=== PATIENT | female | born 1945 | race Caucasian/White ===

== ENCOUNTER 2019-11-04 11:06 | Outpatient (CLI) | payer MEDICARE, OTHER, SELFPAY ==
--- NOTE | ~2019-11-04 | XR_ITS ---
XR lumbar spine 2-3V 11/04/2019 12:08 Indication: Low back pain Procedure: 3 views lumbar spine Comparison: 10/09/2004 Findings: There has been worsening of dextroscoliosis centered at L2. There is 22 degrees angulation. There is disc narrowing at all lumbar levels. There is advanced multilevel facet hypertrophy of the mid and lower lumbar spine. There is atherosclerosis of the aorta. No acute fracture or traumatic mal alignment. Impression: 1: Moderate-severe lumbar spondylosis with progression of dextroscoliosis since prior examination. Reviewed, dictated and finalized at location A. HER WOOD WELDER Impression: 1: Moderate-severe lumbar spondylosis with progression of dextroscoliosis since prior examination.
--- NOTE | ~2019-11-04 | XR_ITS ---
XR chest 2V DATE: 11/04/2019 12:08 INDICATION: Fatigue. Left shoulder and low back pain. TECHNIQUE: PA and lateral views COMPARISON: 12/16/2018 CT chest abdomen pelvis FINDINGS: Normal heart size. Mild aortic calcification and unfolding. No hilar or mediastinal enlarge ment. No pulmonary infiltrate or consolidation, pleural effusion or pulmonary vascular congestion or pneumo thorax. Osteoarthritis is noted at the left glenohumeral joint. Prominent degenerative disc disease is noted in the lower cervical spine. There is diffuse idiopathic skeletal hyperostosis of the thoracic spine. IMPRESSION: No active cardiopulmonary disease Reviewed, dictated and finalized at location B. F HELPER
--- NOTE | ~2019-11-04 | XR_ITS ---
EXAMINATION: XR shoulder LT min 2V EXAM DATE: 11/04/2019 12:08 INDICATION: No known recent injury provided at this time. Pain of the left shoulder. TECHNIQUE: The following left shoulder projections obtained: frontal projection with internal rotatio n, frontal projection with external rotation, Grashey, and scapular Y view (4+ views). There is no p rior study for comparison. FINDINGS: No evidence of left shoulder rotator cuff calcific tendinosis. There is moderate glenohum eral and acromioclavicular joint primary osteoarthritis. There are no acute fractures or dislocations identified. There is no subcutaneous gas. The soft tissue is unremarkable. There are no radiopaq ue foreign bodies. IMPRESSION: Moderate left shoulder osteoarthritis. Reviewed, dictated and finalized at location A. ER BOX OPERATOR
== END 2019-11-04 11:07 | disposition home or self-care (01) ==
PROVIDERS: PCP Family Medicine; Visit Provider Physician Assistant
DX: R53.83 Other fatigue (principal); M54.5 Low back pain; M25.512 Pain in left shoulder; M47.816 Spondylosis without myelopathy or radiculopathy, lumbar region; M19.012 Primary osteoarthritis, left shoulder
CPT/HCPCS: 71046; 72100; 73030

== ENCOUNTER 2020-02-19 13:23 | Outpatient (CLI) | payer MEDICARE, OTHER, SELFPAY ==
--- NOTE | ~2020-02-19 | MR_ITS ---
EXAMINATION: MR brain/brain stem wo/w con DATE: 02/19/2020 15:21 INDICATION: Diplopia. Headache. Multiple sclerosis. TECHNIQUE: Magnetic resonance imaging (MRI) of the brain and brainstem was performed without and with 15 mL MultiHance intravenous contrast. Sequences included sagittal and axial T1-weighted FSE, axial diffusion-weighted FS EPI, axial T2*-weighted GRE, axial T2-weighted FLAIR Propeller, and axial T2-we ighted Propeller. Postcontrast sequences included axial and coronal T1-weighted FSE. Apparent diffusi on coefficient (ADC) maps were created. COMPARISON: Brain MRI 12/23/2017 FINDINGS: There are scattered areas of nonspecific increased T2-weighted signal intensity in the cere bral white matter and mayito. There is no intracranial hemorrhage, acute infarction, or abnormal intrac ranial mass lesion. The ventricles are normal in size. There is mild mucosal thickening in the [place] sinuses. There are likely changes of ocular lens replacement surgeries. The mastoid air cells are normal. IMPRESSION: 1. Worsened extensive nonspecific cerebral white matter disease and pontine disease, which likely rep resents chronic small vessel ischemic disease and/or multiple sclerosis. Reviewed, dictated and finalized at location A. IMPRESSION: 1. Worsened extensive nonspecific cerebral white matter disease and pontine dis ease, which likely represents chronic small vessel ischemic disease and/or mult iple sclerosis.
[2020-02-19 14:06] LABS: Estimated Glomerular Filt Rate > 60
== END 2020-02-19 13:24 | disposition home or self-care (01) ==
PROVIDERS: PCP Family Medicine; Visit Provider Physician Assistant
DX: G93.89 Other specified disorders of brain (principal); R51 Headache; H53.2 Diplopia; G35 Multiple sclerosis
CPT/HCPCS: 36415; 70553; A9577

== ENCOUNTER 2020-06-30 13:20 | Outpatient (CLI) | payer MEDICARE, OTHER, SELFPAY ==
--- NOTE | ~2020-06-30 | MR_ITS ---
EXAMINATION: MR cervical spine wo con EXAM DATE: 06/30/2020 14:48 INDICATION: Multiple sclerosis. Extremity pain, double vision, headache.. TECHNIQUE: Multi-sequential, multiplanar MR images of the cervical spine were obtained without contra st. Axial T2, axial T2 MERGE sequence. Sagittal T1, T2, T2 fat saturation images also obtained. Th ere is no prior study for comparison. FINDINGS: There is moderate disc disease at C5-6 and C6-7. There is 2 mm anterolisthesis C4 on C5. T he spinal cord signal intensity and intrinsic morphology is normal. Cervicomedullary junction is norm al in appearance. There are no suspicious marrow signal abnormalities. Paraspinal soft tissue is unre markable. Level by level evaluation: C2-C3: Disc does not extend beyond the endplate margin. Uncovertebral joint arthropathy: None. Facet joint arthropathy: Mild. Neural foraminal stenosis: No stenosis. Central canal stenosis: No stenosis. C3-C4: There is a mild diffuse disc bulge. Uncovertebral joint arthropathy: Moderate right, mild left. Facet joint arthropathy: Moderate right, mild to moderate left. Neural foraminal stenosis: Moderate right, mild to moderate left. Central canal stenosis: Mild. C4-C5: There is a minimal diffuse disc bulge. Uncovertebral joint arthropathy: Mild to moderate bilateral. Facet joint arthropathy: Severe left, mild to moderate right. Neural foraminal stenosis: Moderate left, mild right. Central canal stenosis: No stenosis. C5-C6: There is a mild diffuse disc bulge. Uncovertebral joint arthropathy: Moderate to severe left, moderate right. Facet joint arthropathy: Moderate bilateral. Neural foraminal stenosis: Moderate to severe left, moderate right. Central canal stenosis: Mild. C6-C7: There is a mild diffuse disc bulge. Uncovertebral joint arthropathy: Moderate to severe left, moderate right. Facet joint arthropathy: Mild to moderate bilateral. Neural foraminal stenosis: Moderate left, no right. Central canal stenosis: Minimal. C7-T1: Disc does not extend beyond the endplate margin. Uncovertebral joint arthropathy: Mild to moderate bilateral. Facet joint arthropathy: Moderate left, mild right. Neural foraminal stenosis: Mild left. Central canal stenosis: No stenosis. IMPRESSION: 1. Normal spinal cord signal. 2. Arthropathy causing multilevel neural foraminal stenosis, left C5-6 most narrowed. Reviewed, dictated and finalized at location A. IMPRESSION: 1. Normal spinal cord signal. 2. Arthropathy causing multilevel neural foraminal stenosis, left C5-6 most na rrowed.
--- NOTE | ~2020-06-30 | CT_ITS ---
EXAMINATION: CTA brain EXAM DATE: 06/30/2020 15:24 INDICATION: Headaches, history of diplopia. TECHNIQUE: Noncontrast head CT. Spiral CT angiogram cerebral arteries performed with intravenous in jection of 100 mL Omnipaque 350. Axial, coronal and sagittal images reviewed. Additional reformatted images created on dedicated 3-D workstation. The dose-length product (DLP) for this examination was 962.61 mGy-cm. The exposure was tailored according to patient size, and iterative reconstruction ( ASIR) was used as additional dose reduction technique. There is no prior study for comparison. FINDINGS: Mild bilateral carotid arterial sclerosis with no stenosis. There is right-sided posterior communicating artery dominant posterior cerebral artery. Right vertebral artery is dominant. There is no distal carotid or vertebral basilar arterial dissection or fibromuscular dysplasia. There are n o cerebral artery aneurysms. There is symmetric cerebral artery arborization. The sagittal, transvers e and sigmoid sinuses enhance normally, no venous sinus thrombosis. Internal cerebral veins also enha nce normally. There is no acute intraparenchymal hemorrhage. No evidence of intraparenchymal brain mass lesion. No evidence of acute infarction. There is moderate periventricular and subcortical hypodensity, nonsp ecific but probably related to small vessel ischemic disease. There is mild prominence of the sulci and ventricles related to cerebral atrophy. There is intracranial carotid arteriosclerosis. Ther e is no mass effect or midline shift. There is no obstructive hydrocephalus suspected. There are no extra-axial collections. There are no calvarial acute fractures. Mild sinus mucoperiosteal thickeni ng. Mastoid air cells are aerated. Bilateral cataract surgery. IMPRESSION: 1. No acute intracranial findings or cerebral artery aneurysm. 2. Chronic age related findings. Reviewed, dictated and finalized at location A.
--- NOTE | ~2020-06-30 | MR_ITS ---
EXAMINATION: MR thoracic spine wo con EXAM DATE: 06/30/2020 14:56 INDICATION: Multiple sclerosis. Extremity pain. TECHNIQUE: Multi-sequential, multiplanar MR images of the thoracic spine were obtained without contra st. Sagittal T1, T2, T2 fat saturation, axial T2 weighted images reviewed. There is no prior study for comparison. FINDINGS: There is mild mid thoracic kyphosis. The spinal cord signal intensity and intrinsic morphol ogy is normal. Thoracic central canal and neural foramen are widely patent. There are no suspicious m arrow signal abnormalities. There is mild upper thoracic levoscoliosis, mid thoracic dextroscoliosis. There is mild thoracic facet arthropathy. Mild mid and lower thoracic disc disease. Paraspinal soft tissue is unremarkable. IMPRESSION: 1. Normal thoracic cord signal. 2. Mild thoracic scoliosis. 3. Mild thoracic spondylosis. Reviewed, dictated and finalized at location A.
[2020-06-30 15:18] LABS: Estimated Glomerular Filt Rate > 60
== END 2020-06-30 13:21 | disposition home or self-care (01) ==
PROVIDERS: PCP Family Medicine; Visit Provider Psychiatry & Neurology Neurology
DX: R51.9 Headache, unspecified (principal); G35 Multiple sclerosis
CPT/HCPCS: 70496; 72141; 72146; Q9967

== ENCOUNTER 2020-08-19 14:38 | Emergency (ER) | payer MEDICARE, OTHER, SELFPAY ==
[2020-08-19] VITALS (14 sets, daily range): BP systolic 148–159; BP diastolic 68–77; PULSE 68–86; RESP 13–33; TEMP 36.4–37.1; O2SAT 92–96
--- NOTE | ~2020-08-19 | CT_ITS ---
EXAMINATION: CT chest abdomen pelvis wo con DATE: 08/19/2020 17:13 INDICATION: Cough and shortness of breath. Left lower quadrant abdominal pain. TECHNIQUE: Computed tomography (CT) of the chest, abdomen, and pelvis was performed without intraveno us contrast. Automated exposure control and iterative reconstruction technique were employed. The dos e-length product was 834.12 mGy-cm. COMPARISON: CT abdomen and pelvis 08/01/2019 FINDINGS: CHEST CT: The lungs demonstrate minimal atelectasis. No pleural effusion. The heart size is normal. There are c oronary artery calcifications. No pericardial effusion. There is thoracic levoscoliosis. There is mod erate thoracic spondylosis. ABDOMEN/PELVIS CT: The liver, gallbladder, spleen, pancreas, and adrenal glands. There is a 2.1 cm hemorrhagic cyst in l eft kidney. Calcifications in the hilum of right kidney are likely vascular. There is calcified ather osclerosis of the aorta and many of the other arteries. There is a calcified fibroid in the uterus. T here is diverticulosis of the colon without evidence of diverticulitis. There are no dilated loops of bowel. The appendix is likely absent. There are no pathologically enlarged lymph nodes. There is no free intraperitoneal fluid. There is lumbar dextroscoliosis and severe spondylosis. IMPRESSION: 1. No specific etiology for the patient's symptoms. Reviewed, dictated and finalized at location A. TIC PARTS FABRICATOR
--- NOTE | ~2020-08-19 | XR_ITS ---
EXAMINATION: XR chest 1V portable DATE: 08/19/2020 16:05 INDICATION: Body aches. Weakness. Low-grade fever. TECHNIQUE: A single frontal view of the chest was obtained. COMPARISON: Chest 2 views 11/04/2019, CT abdomen and pelvis 08/01/2019 FINDINGS: There is mild atelectasis in left lower lung zone. No pleural effusion or pneumothorax. The heart size is normal. IMPRESSION: 1. Mild atelectasis in left lower lung zone. Reviewed, dictated and finalized at location A. D BELT SANDER TENDER
[2020-08-19 15:03] LABS: Basophils Percent Auto 0.5 % (0.2-1.2); Eosinophils Absolute Auto 0.1 K/mm3 (0-0.3); Eosinophils Percent Auto 1.9 % (0-4.4); Hematocrit 32.3 % (37.0-47.0); Hemoglobin 10.3 g/dL (12.0-15.0); Immature Granulocyte Absolute 0.02 K/mm3 (0.00-0.031); Immature Granulocyte Percent A 0.3 % (0-0.5); Lymphocytes Absolute Auto 2.11 K/mm3 (0.9-3.2); Lymphocytes Percent Auto 32.7 % (18.3-44.2); Mean Corpuscular HGB Conc 31.9 g/dl (32-36); Mean Corpuscular Hemoglobin 29.5 pg (26-34); Mean Corpuscular Volume 92.6 fl (80-100); Mean Platelet Volume 9.5 fl (7.4-10.4); Monocytes Absolute Auto 0.7 K/mm3 (0.1-0.6); Monocytes Percent Auto 10.5 % (2.6-8.5); Neutrophils Absolute Auto 3.5 K/mm3 (1.3-6.7); Neutrophils Percent Auto 54.1 % (45.5-73.1); Platelet Count Result 281 k/mm3 (150-375); Red Blood Count 3.49 M/mm3 (4.2-5.4); Red Cell Distribution Width 16.1 % (11.5-14.5); White Blood Count 6.5 K/mm3 (4.5-10.0)
[2020-08-19 15:14] LABS: Alanine Aminotransferase 15 U/L (4-35); Albumin Level 3.8 g/dL (3.5-5.1); Alkaline Phosphatase 83 U/L (38-126); Anion Gap 5 mmol/L (8-16); Aspartate Amino Transferase 20 U/L (14-36); Bilirubin,Total 0.3 mg/dL (0.2-1.3); Blood Urea Nitrogen 12 mg/dL (7-17); Calcium 9.1 mg/dL (8.4-10.2); Carbon Dioxide 34 mmol/L (22-30); Chloride 99 mmol/L (98-107); Estimated CRCL calculation 52 ml/min; Estimated Glomerular Filt Rate > 60; Glucose 116 mg/dL (65-105); Sodium 138 mmol/L (137-145)
--- NOTE | 2020-08-19 16:10 | PC.NURSE ---
patient brought back to ED room 10 with c/o weakness and abdomen pain. see triage notes. 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 alert. oriented in room. updated on current treatment plan.
[2020-08-19 16:27] LABS: Add Urine Microscopic? YES; Appearance Urine Clear (Clear); Bilirubin Urine Negative (Negative); Blood Urine Negative (Negative); Color Urine Yellow (Yellow); Glucose Urine UA Negative (Negative); Ketones Urine Negative (Negative); Leukocyte Esterase Ur 2+ LEU/UL (Negative); Mucus Urine Rare /lpf; Nitrate Urine Negative (Negative); Protein Urine Negative (Negative); RBC Urine 0-2 /hpf (0-2); Specific Grav Ur 1.013 (1.001-1.035); Squamous Epithelial Cell Urine Rare /hpf (Few); Urobilinogen Urine Negative mg/dL (<2.0); WBC Urine 21-30 /hpf
--- NOTE | 2020-08-19 16:46 | ED.GENADULT ---
HPI - General Adult General Chief complaint: Weakness Stated complaint: fever, achy, distended abd Time Seen by Provider: 08/19/20 16:04 Source: patient Mode of arrival: ambulatory Limitations: no limitations History of Present Illness HPI narrative: Patient is a 74-year-old female complaining of cough, body aches, fatigue, weakness and subjective low-grade fever x5 days. Patient also complaining of left lower quadrant pain that started a few days ago, 6 out of 10, dull, nonradiating, history of diverticulosis. Related Data Home Medications Medication Instructions Recorded Confirmed folic acid 1 mg tablet 1 mg PO DAILY 02/22/20 05/05/20 cholecalciferol (vitamin D3) 50 50 mcg PO DAILY 06/28/20 mcg (2,000 unit) capsule golimumab 50 mg/0.5 mL 50 mg SUBCUT .q8 weeks ml 06/28/20 subcutaneous syringe methotrexate sodium 25 mg/mL 25 mg IM WEEKLY ml 06/28/20 injection solution apqouncjzubq-yzwilgrs-qguhnp tablet 1 tablet PO DAILY 06/28/20 vit C 250 mg-vit E 200 unit-zinc 1 cap PO DAILY cap 06/28/20 ox 12.5 ly-vhsrlv-cpeivj-zeax capsule Allergies Allergy/AdvReac Type Severity Reaction Status Date / Time cephalexin Allergy Severe Anaphylaxis Verified 06/28/20 14:31 Review of Systems Review of Systems: All systems reviewed & are unremarkable except as noted in HPI and below Constitutional: Constitutional: Denies body ache(s), Denies chills, Denies excessive sweating, Denies fever(s), Denies headache(s) and Denies weight loss Eyes: Eyes: Denies blurry vision, Denies change in vision and Denies loss of vision ENT: Denies dizziness, Denies ear discharge, Denies headache(s), Denies lip swelling, Denies epistaxis, Denies nasal congestion, Denies neck pain, Denies throat swelling and Denies tongue swelling Cardiovascular: Cardiovascular: Denies chest pain, Denies chest pain at rest, Denies chest pain with activity, Denies diaphoresis, Denies rapid heart rate, Denies edema, Denies irregular heart rhythm, Denies lightheadedness, Denies palpitations, Denies dyspnea and Denies dyspnea on exertion Respiratory: Respiratory: Denies chest congestion, Denies hemoptysis, Denies dyspnea and Denies dyspnea on exertion Gastrointestinal: Gastrointestinal: Denies melena, Denies hematochezia, Denies diarrhea, Denies nausea, Denies vomiting and Denies hematemesis Musculoskeletal: Musculoskeletal: Denies abnormal gait, Denies deformity, Denies joint swelling, Denies limited range of motion, Denies neck pain and Denies numbness Neurologic: Denies Abnormal speech present, Denies abnormal gait, Denies confusion, Denies dizziness, Denies headache(s), Denies focal weakness, Denies loss of vision, Denies numbness, Denies Other visual disturbances, Denies Sensory deficit (Neuro) and Denies weakness Psychiatric: Psychiatric: Denies confusion, Denies depression, Denies auditory hallucinations, Denies homicidal ideation and Denies suicidal ideation Endocrine: Endocrine: Denies cold intolerance, Denies excessive sweating, Denies fatigue, Denies heat intolerance and Denies palpitations Hematologic/Lymphatic: Hematologic/Lymphatic: Denies easy bleeding and Denies easy bruising Allergic/Immunologic: Allergic/Immunologic: Denies lip swelling, Denies throat swelling and Denies tongue swelling [facility] Past Medical History Medical History (Updated 08/19/20 @ 19:04 by Karlos Nuñez MD) Anal fissure Anemia Anxiety Bronchitis Cataracts, bilateral Closed nondisplaced fracture of proximal phalanx of lesser toe Depression Diabetes Diverticulitis Diverticulosis of colon (without mention of hemorrhage) Emphysema of lung Essential (primary) hypertension Fatty liver Gastro-esophageal reflux disease without esophagitis History of basal cell carcinoma (BCC) Mixed hyperlipidemia Osteoarthritis of left knee Peripheral neuropathy Psoriasis 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
[2020-08-19] MEDS: LACTATED RINGERS 1,000 ML 999 ML IV CONT (17:05)
--- NOTE | 2020-08-19 19:23 | PC.NURSE ---
provider at bedside. patient ready for discharge. covid swab done prior to discharge.
[2020-08-20 12:35] LABS: SARS-CoV-2 RNA PCR Negative
== END 2020-08-19 19:24 | disposition home or self-care (01) ==
PROVIDERS: Emergency Medicine; Emergency Provider Emergency Medicine; PCP Family Medicine
DX: B34.9 Viral infection, unspecified (principal); N39.0 Urinary tract infection, site not specified; Z20.828 Contact with and (suspected) exposure to other viral communicable diseases; D64.9 Anemia, unspecified; J43.9 Emphysema, unspecified; I10 Essential (primary) hypertension; K21.9 Gastro-esophageal reflux disease without esophagitis; Z85.828 Personal history of other malignant neoplasm of skin; M17.12 Unilateral primary osteoarthritis, left knee; E11.42 Type 2 diabetes mellitus with diabetic polyneuropathy; M06.9 Rheumatoid arthritis, unspecified; M05.9 Rheumatoid arthritis with rheumatoid factor, unspecified; G47.30 Sleep apnea, unspecified; Z98.42 Cataract extraction status, left eye; Z98.41 Cataract extraction status, right eye
CPT/HCPCS: 36415; 71045; 71250; 74176; 80053; 81001; 85025; 87086; 87635; 96360; 96361; 99284; C9803; J7120; U0003

== ENCOUNTER 2020-09-28 13:02 | Outpatient (CLI) | payer MEDICARE, OTHER, SELFPAY ==
--- NOTE | ~2020-09-28 | CT_ITS ---
EXAMINATION: CT abdomen pelvis w con EXAM DATE: 09/28/2020 14:00 INDICATION: R10.9 - Unspecified abdominal pain. TECHNIQUE: Spiral CT of the abdomen and pelvis was performed following intravenous injection of 100 m L Omnipaque 350. Axial, coronal and sagittal images were reviewed. The dose-length product (DLP) fo r this examination was 954.94 mGy-cm. The exposure was tailored according to patient size (auto mA e xposure control), and iterative reconstruction (ASIR) was used as additional dose reduction technique . Comparison is made to prior examination from 08/19/2020. FINDINGS: The liver, spleen, adrenal glands and pancreas are unremarkable. Gallbladder is unremarkab le. No biliary obstruction. Portal and splenic veins are patent. Kidneys enhance symmetrically. T here is no hydronephrosis. Possible small right nephrolithiasis. There is a left renal hemorrhagic cy st measuring 1.8 cm. Fibroid uterus. The bladder is unremarkable. There is no retroperitoneal or p elvic lymphadenopathy. There is moderate scattered arteriosclerotic disease. There is 2 cm duodenal diverticulum. There is mild sigmoid colonic diverticulosis. There is no adjac ent inflammatory change to suggest diverticulitis. No free intraperitoneal gas. The heart is norm al in size. There are no pericardial or pleural effusions. The lung bases are unremarkable. There are no osteoblastic or osteolytic lesions identified. There is mild to moderate lumbar dextroscoliosi s and moderate to severe mid lumbar disc disease. IMPRESSION: 1. No acute intra-abdominal findings. 2. Mild sigmoid diverticulosis. 3. Duodenal diverticulum. 4. Fibroid uterus. Reviewed, dictated and finalized at location B. F MARKETING OFFICER
[2020-09-28 13:52] LABS: Estimated Glomerular Filt Rate > 60
== END 2020-09-28 13:03 | disposition home or self-care (01) ==
PROVIDERS: PCP Family Medicine; Visit Provider Physician Assistant
DX: R10.9 Unspecified abdominal pain (principal); K57.30 Diverticulosis of large intestine without perforation or abscess without bleeding; K57.10 Diverticulosis of small intestine without perforation or abscess without bleeding; D25.9 Leiomyoma of uterus, unspecified
CPT/HCPCS: 74177; Q9967

== ENCOUNTER 2021-01-12 11:42 | Emergency (ER) | payer MEDICARE, OTHER, SELFPAY ==
--- NOTE | ~2021-01-12 | XR_ITS ---
EXAMINATION: XR wrist LT w scaphoid EXAM DATE: 01/12/2021 12:29 INDICATION: Fall, pain lt shoulder, lt upper arm and lt wrist . Initial encounter. TECHNIQUE: Left wrist frontal, frontal with ulnar deviation, oblique and lateral projections obtained and reviewed. There is no prior study for comparison. FINDINGS: Left wrist scapholunate joint space is maintained. Mild ulnar minus variance. There are no acute appearing approximately a sliced of finger yesterday fractures or dislocations identified. Th ere is no subcutaneous gas. The soft tissue is unremarkable. There are no radiopaque foreign ngoc s. IMPRESSION: No acute osseous findings. Reviewed, dictated and finalized at location A. IMPRESSION: No acute osseous findings.
--- NOTE | ~2021-01-12 | XR_ITS ---
EXAMINATION: XR humerus LT, XR shoulder LT min 2V EXAM DATE: 01/12/2021 12:29 (accession [id number]), 01/12/2021 12:30 (accession [id number]) INDICATION: fall, pain lt shoulder, lt upper arm and lt wrist . Initial encounter. TECHNIQUE: The following left shoulder projections obtained: frontal projection with internal rotatio n, frontal projection with external rotation, Grashey, and axillary (4+ views). Orthogonal projection s of the left humerus (3 images). Prior left shoulder x-ray from 11/04/2023 comparison. FINDINGS: There is moderate left shoulder primary osteoarthritis. There are no acute shoulder or earnest jami fractures or dislocations identified. There is no subcutaneous gas. The soft tissue is unremark able. There are no radiopaque foreign bodies. IMPRESSION: 1. Left shoulder, humerus exam without acute osseous findings. 2. Moderate shoulder osteoarthritis. Reviewed, dictated and finalized at location A. IMPRESSION: 1. Left shoulder, humerus exam without acute osseous findings. 2. Moderate shoulder osteoarthritis.
[2021-01-12 11:49] VITALS: BP 151/74; PULSE 63; RESP 20; TEMP 36.3; O2SAT 98
--- NOTE | 2021-01-12 11:50 | ED.UPPEXIN ---
HPI - Extremity Injury (Upper) General Chief Complaint: Fall Stated Complaint: right side shoulder arm injury Time Seen by Provider: 01/12/21 11:50 Source: patient and RN notes reviewed History of Present Illness HPI narrative: Patient is a 75-year-old female who presents the urgent care with complaints of left arm pain from the shoulder to the wrist. Patient states that she fell in her bathroom yesterday, tripping over her own feet. Patient states that she does use a motorized scooter, walker and wheelchair. Patient states that she is equipped at home but does have a tendency to fall. Patient states that she has been falling more often and does follow-up with her doctor regularly. Patient ambulated into the facility with the use of her walker. Patient states that she did not hit her head or have a loss of consciousness. Patient is not on blood thinners. Patient is left-hand dominant. States that she has been taking Tylenol and prednisone since the fall. No other acute complaints. No acute distress noted. Patient aware of the plan of care. Some parts of this dictation were generated by voice recognition software and may contain typographical and/or grammatical inaccuracies. Related Data Home Medications Medication Instructions Recorded Confirmed folic acid 1 mg tablet 1 mg PO DAILY 02/22/20 10/21/20 cholecalciferol (vitamin D3) 50 50 mcg PO DAILY 06/28/20 10/21/20 mcg (2,000 unit) capsule golimumab 50 mg/0.5 mL 50 mg SUBCUT .q8 weeks ml 06/28/20 10/21/20 subcutaneous syringe methotrexate sodium 25 mg/mL 25 mg IM WEEKLY ml 06/28/20 10/21/20 injection solution pnbtsqqvogwi-adhjmhrb-jkzqqw tablet 1 tablet PO DAILY 06/28/20 10/21/20 vit C 250 mg-vit E 200 unit-zinc 1 cap PO DAILY cap 06/28/20 10/21/20 ox 12.5 bv-nmyepw-tzbwis-zeax capsule Allergies Allergy/AdvReac Type Severity Reaction Status Date / Time cephalexin Allergy Severe Anaphylaxis Verified 01/12/21 11:55 Review of Systems Review of Systems: Narrative: CONSTITUTIONAL: Denies fever, chills, or sweats. EYES: Denies visual changes, redness, or discharge. ENT: Denies rhinorrhea, congestion, sore throat, or otalgia. CARDIOVASCULAR: Denies chest pain, palpitations, or edema. RESPIRATORY: Denies cough or dyspnea. GASTROINTESTINAL: Denies abdominal pain, nausea, vomiting, or diarrhea. GENITOURINARY: Denies dysuria or hematuria. SKIN: Denies rash or itching. MUSCULOSKELETAL: Reports of left arm aches and pains from the left shoulder to the left wrist NEUROLOGIC: Denies headache, numbness, or weakness. All other systems reviewed are negative, except as documented in HPI. 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
== END 2021-01-12 12:50 | disposition home or self-care (01) ==
PROVIDERS: Emergency Provider Nurse Practitioner Family; PCP Family Medicine
DX: M25.512 Pain in left shoulder (principal); M79.622 Pain in left upper arm; M25.532 Pain in left wrist; M19.012 Primary osteoarthritis, left shoulder; E11.9 Type 2 diabetes mellitus without complications; I10 Essential (primary) hypertension; K76.0 Fatty (change of) liver, not elsewhere classified; K21.9 Gastro-esophageal reflux disease without esophagitis; Z85.828 Personal history of other malignant neoplasm of skin; E78.5 Hyperlipidemia, unspecified; E11.42 Type 2 diabetes mellitus with diabetic polyneuropathy; M06.9 Rheumatoid arthritis, unspecified; G47.30 Sleep apnea, unspecified; F32.9 Major depressive disorder, single episode, unspecified
CPT/HCPCS: 73030; 73060; 73110; 99214; G0463

== ENCOUNTER 2021-05-04 10:15 | Outpatient (RCR) | payer MEDICARE, OTHER, SELFPAY ==
--- NOTE | 2021-05-04 15:44 | PTOPEVAL ---
Thank you for referring Blanca Nam to [facility].? The patient is scheduled to be seen for therapy? 1 x/week for 8 weeks. Please review, sign, date and return this plan of care KAILASH. I agree with and certify that the following plan of care is medically necessary. Referring Physician Date Attending Provider: Shahriar Cook, MD Diagnosis RA Onset chronic Additional Evaluation Detail New ramps are recently completed to allow her to use her scooter. Current scooter is ~ 4 months old. Subjective Information She had fall from bed last Query Text:As Reported By Patient/ week. She has a history of Family falls during walking and transferring. She has rollator and scooter to use of mobility. >6 falls in the past 6 months with greater amount in the past month. She stands to complete etl lead for 5 min intervals. She requires assistance with ADL's and tub transfers. She is able to transfer from bed, toilet. Requires assistance from any chair and car transfers. She does not use the wheelchair in the house often due to hitting objects. She uses her rollator. Pain Assessment Self Report Pain Assessment Generalized Reported Pain Level 6 Pain Frequency Chronic Lowest Pain Intensity 6 Greatest Pain Intensity 8 Upper Extremity Range of Motion General Upper Extremity Range of Motion Gross Upper Extremity Range of Motion frankie shoulder flex and Comments abduction: 90 dg elbow flex/ext: WFL finger: full fist and finger ext of all joints Lower Extremity Muscle Strength Testing General Lower Extremity Strength Gross Lower Extremity Strength left hip flex: 3-/5, knee flex /ext: 4-/5 (seated), ankle DF: 4/5 right hip flex: 3-/5 knee flex/ext 4-/5 (seated), ankle DF 4/5 pain with resistance in the hips Upper Extremity Muscle Strength Testing General Upper Extremity Strength
--- NOTE | 2021-05-25 12:57 | PCPTNOTE ---
Admitting Provider: Attending Provider: Shahriar Cook, Patient:Blanca Nam Date of :1945 Discharge Note Patient has not returned for any further treatments since 05/04/2021, therefore she will be discharged at this time. Patient?s initial visit was on 05/04/2021 10:30 and she had a total of 1 visits. The goals have been not met. Thank you for referring this patient to [facility]. Please review, sign, date and return this discharge summary KAILASH. I have been updated about the patient's current status and I agree with discharge from the above service at this time. Referring Physician Date
== END 2021-05-25 17:45 | disposition home or self-care (01) ==
LOC: ANHPT 10:15
PROVIDERS: PCP Family Medicine; Visit Provider Internal Medicine
DX: M06.09 Rheumatoid arthritis without rheumatoid factor, multiple sites (principal); M45.0 Ankylosing spondylitis of multiple sites in spine; Z79.899 Other long term (current) drug therapy
CPT/HCPCS: 97163; 97530

== ENCOUNTER 2021-05-11 09:27 | Outpatient (CLI) | payer MEDICARE, OTHER, SELFPAY ==
--- NOTE | ~2021-05-11 | XR_ITS ---
XR_CERV2-3V_CR DATE: 05/11/2021 10:00 INDICATION: Neck pain radiating into mid back, right shoulder TECHNIQUE: AP, open-mouth, lateral views COMPARISON: 06/17/2012 cervical spine FINDINGS: There is minimal anterolisthesis at C2-3, C3-4, C4-5. There is moderate degenerative disc disease and C5-6. There is moderately severe degenerative disease at C6-7. There is degenerative change at the apophyseal joints. Uncovertebral joint spurring in the C5-6 and C 6-7 region. IMPRESSION: Cervical spondylosis Reviewed, dictated and finalized at Location [facility]. Reviewed, dictated and finalized at location A. IMPRESSION: Cervical spondylosis
--- NOTE | ~2021-05-11 | XR_ITS ---
XR thoracic spine 3V DATE: 05/11/2021 10:01 INDICATION: Back pain TECHNIQUE: AP, lateral, swimmer views COMPARISON: 06/30/2020 MR thoracic spine FINDINGS: There is diffuse osteopenia. There is levoscoliosis of the upper thoracic spine and dextroscoliosis of lower thoracic and lumbar s pine. There is diffuse idiopathic skeletal hyperostosis involving the mid and particularly the lower thorac ic spine. No fracture, dislocation or bone destruction. No paraspinal soft tissue thickening. IMPRESSION: Diffuse osteopenia, scoliosis and degenerative changes Reviewed, dictated and finalized at location A.
--- NOTE | ~2021-05-11 | XR_ITS ---
EXAMINATION: XR shoulder RT min 2V EXAM DATE: 05/11/2021 10:01 INDICATION: M25.511 - Pain in right shoulder after multiple falls. TECHNIQUE: The following right shoulder projections obtained: frontal projection with internal rotati on, frontal projection with external rotation, Grashey, and scapular Y view (4+ views). There is no prior study for comparison. FINDINGS: No evidence of right shoulder rotator cuff calcific tendinosis. There is mild glenohumera l joint, moderate acromioclavicular joint primary osteoarthritis. There are no acute fractures or dis locations identified. There is no subcutaneous gas. The soft tissue is unremarkable. There are no radiopaque foreign bodies. IMPRESSION: 1. XR shoulder RT min 2V exam without acute osseous findings. 2. Mild to moderate osteoarthritis. Reviewed, dictated and finalized at location A.
== END 2021-05-11 09:28 | disposition home or self-care (01) ==
LOC: ANHBWCIMG 09:29
PROVIDERS: PCP Family Medicine; Visit Provider Physician Assistant Medical
DX: M25.511 Pain in right shoulder (principal); M54.9 Dorsalgia, unspecified; M54.2 Cervicalgia; M85.88 Other specified disorders of bone density and structure, other site; M41.82 Other forms of scoliosis, cervical region; M47.812 Spondylosis without myelopathy or radiculopathy, cervical region; M19.011 Primary osteoarthritis, right shoulder
CPT/HCPCS: 72040; 72072; 73030

== ENCOUNTER 2021-05-15 12:02 | Emergency (ER) | payer MEDICARE, OTHER, SELFPAY ==
--- NOTE | ~2021-05-15 | XR_ITS ---
EXAMINATION: XR chest 2V EXAM DATE: 05/15/2021 12:38 INDICATION: Shortness of breath on exertion. TECHNIQUE: Frontal and lateral projections of the chest obtained and reviewed. Comparison is made to prior examination from 08/19/2020. FINDINGS: The lungs are clear. There are no pleural effusions. The cardiomediastinal silhouette is within normal limits. There is no pneumothorax suspected. The bones and soft tissues are unremarkab le. IMPRESSION: No acute cardiopulmonary findings. Reviewed, dictated and finalized at location B.
[2021-05-15 12:08] VITALS: BP 179/81; PULSE 73; RESP 20; TEMP 36.8; O2SAT 99
--- NOTE | 2021-05-15 12:11 | ED.URI ---
HPI - URI/Sore Throat General Chief Complaint: Back Pain/Injury Stated Complaint: Shortness of breath Time Seen by Provider: 05/15/21 12:12 Source: patient, family and RN notes reviewed History of Present Illness HPI Narrative: Patient is a 75-year-old female who presents the urgent care with complaints of upper back pain. Patient states it is worse when trying to sit up when lying down and any type of twisting motion. Patient has fallen several times recently and was at her doctor's office 1 week ago due to consistent falls. Patient states that they took her off one of her muscle relaxers but she did take the baclofen for the upper back pain. Patient states this started just a couple days ago and denies of any new falls. States that they did multiple x-rays and she had nothing acute and no fractures. Patient denies of any shortness of breath just reports the pain taking her breath away . Patient denies of any chest pain or radiation of the pain. No other acute complaints. No acute distress noted. Patient and spouse aware of the plan of care. Some parts of this dictation were generated by voice recognition software and may contain typographical and/or grammatical inaccuracies. Related Data Home Medications Medication Instructions Recorded Confirmed folic acid 1 mg tablet 1 mg PO DAILY 02/22/20 05/15/21 cholecalciferol (vitamin D3) 50 50 mcg PO DAILY 06/28/20 05/15/21 mcg (2,000 unit) capsule methotrexate sodium 25 mg/mL 25 mg IM WEEKLY ml 06/28/20 05/15/21 injection solution cbykmyxfrbef-mskvcwcr-owudin tablet 1 tablet PO DAILY 06/28/20 05/15/21 vit C 250 mg-vit E 200 unit-zinc 1 cap PO DAILY cap 06/28/20 05/15/21 ox 12.5 ff-axhbak-usllgd-zeax capsule atorvastatin 20 mg tablet 20 mg PO DAILY 03/08/21 05/15/21 blood sugar diagnostic 03/08/21 05/09/21 glipizide 5 mg tablet 5 mg PO DAILY 03/08/21 05/15/21 levothyroxine 50 mcg capsule 50 mcg PO DAILY 03/08/21 05/15/21 magnesium oxide 400 mg PO DAILY 03/08/21 05/15/21 meclizine 25 mg tablet 25 mg PO TID 03/08/21 05/15/21 omega 7-bwd-vmj-fish oil 1,000 mg 1 cap PO DAILY 03/08/21 05/15/21 (120 mg-180 mg) capsule potassium chloride 10 mEq 10 meq PO DAILY 03/08/21 05/15/21 tablet,extended release cyclobenzaprine 10 mg tablet 10 mg PO DAILY tablet 05/09/21 05/15/21 secukinumab 150 mg/mL subcutaneous 150 mg SUBCUT .q2week ml 05/09/21 05/15/21 syringe Allergies Allergy/AdvReac Type Severity Reaction Status Date / Time cephalexin Allergy Severe Anaphylaxis Verified 05/15/21 12:10 Sulfa (Sulfonamide Allergy unknown Verified 05/15/21 12:10 Antibiotics) Review of Systems Review of Systems: CONSTITUTIONAL: Denies fever, chills, or sweats. EYES: Denies visual changes, redness, or discharge. ENT: Denies rhinorrhea, congestion, sore throat, or otalgia. CARDIOVASCULAR: Denies chest pain, palpitations, or edema. RESPIRATORY: Denies cough or dyspnea. GASTROINTESTINAL: Denies abdominal pain, nausea, vomiting, or diarrhea. GENITOURINARY: Denies dysuria or hematuria. SKIN: Denies rash or itching. MUSCULOSKELETAL: Reports of upper back pain NEUROLOGIC: Denies headache, numbness, or weakness. All other systems reviewed are negative, except as documented in HPI. 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
== END 2021-05-15 13:00 | disposition home or self-care (01) ==
PROVIDERS: Emergency Provider Nurse Practitioner Family
DX: M62.830 Muscle spasm of back (principal); Z87.891 Personal history of nicotine dependence; J43.9 Emphysema, unspecified; I10 Essential (primary) hypertension; K76.0 Fatty (change of) liver, not elsewhere classified; K21.9 Gastro-esophageal reflux disease without esophagitis; Z85.828 Personal history of other malignant neoplasm of skin; E78.2 Mixed hyperlipidemia; M17.12 Unilateral primary osteoarthritis, left knee; E11.42 Type 2 diabetes mellitus with diabetic polyneuropathy; M05.9 Rheumatoid arthritis with rheumatoid factor, unspecified; G47.30 Sleep apnea, unspecified; G40.909 Epilepsy, unspecified, not intractable, without status epilepticus; F41.9 Anxiety disorder, unspecified; F32.9 Major depressive disorder, single episode, unspecified
CPT/HCPCS: 71046; 99213; G0463

== ENCOUNTER → 2021-06-24 00:40 | Outpatient (CLI) | payer MEDICARE, OTHER, SELFPAY ==
[2021-06-24 18:06] LABS: SARS-CoV-2 RNA PCR Negative
== END ==
PROVIDERS: PCP Family Medicine; Visit Provider Physician Assistant
DX: J02.9 Acute pharyngitis, unspecified (principal); R09.81 Nasal congestion; R19.7 Diarrhea, unspecified; R50.9 Fever, unspecified; R53.83 Other fatigue; Z20.822 Contact with and (suspected) exposure to COVID-19
CPT/HCPCS: C9803; U0003; U0005

== ENCOUNTER 2021-07-14 18:05 | Observation (INO) | payer MEDICARE, OTHER, SELFPAY ==
--- NOTE | ~2021-07-14 | CT_ITS ---
EXAMINATION: CT brain wo con DATE: 07/15/2021 14:42 INDICATION: Patient balance is off. TECHNIQUE: Computed tomography (CT) of the head was performed without intravenous contrast. The dose- length product was 605.33 mGy-cm. Automated exposure control and iterative reconstruction technique w ere employed. COMPARISON: CT dated 06/30/2020 FINDINGS: Generalized atrophy. There are scattered severe periventricular and subcortical white matte r changes, most likely related to small vessel ischemic disease (microangiopathy). There is intracran ial atherosclerosis. No ventriculomegaly or midline shift. Basilar cisterns are patent. Paranasal sin uses and mastoids are pneumatized. No depressed skull fractures. IMPRESSION: 1. No acute intracranial abnormality. 2: Chronic age-related findings. Reviewed, dictated and finalized at location A.
--- NOTE | ~2021-07-14 | XR_ITS ---
EXAMINATION: XR chest 2V 07/14/2021 19:57 INDICATION: Midsternal chest pain and shortness of breath. PROCEDURE: 2 view chest COMPARISON: Comparison to multiple prior studies sequentially, with oldest reviewed study dated 12/2017. FINDINGS: The lungs are clear. The cardiomediastinal silhouette is within normal limits. There are no pleural effusions. There is no pneumothorax suspected. IMPRESSION: 1: NO ACUTE CARDIOPULMONARY DISEASE. Reviewed, dictated and finalized at location A.
--- NOTE | ~2021-07-14 | MR_ITS ---
EXAMINATION: MR brain/brain stem wo con EXAM DATE: 07/16/2021 12:28 INDICATION: Off balance, trouble finding words. TECHNIQUE: Magnetic resonance imaging (MRI) of the brain/brain stem obtained without contrast. Romaine al T1, axial diffusion, gradient echo (T2*), T1, T2, FLAIR sequences obtained. Correlation is made t o head CT from 07/15/2021. There is a prior brain MR from 02/19/2020 for comparison. FINDINGS: There are no areas of restricted diffusion to suggest acute infarction. There is no acute hemorrhage seen on the T2*, a hemosiderin sensitive sequence. No intraparenchymal brain mass lesion. There is moderate to severe periventricular and subcortical T2/FLAIR signal hyperintensity, nonspeci fic but probably related to small vessel ischemic disease (microangiopathy). There is moderate prom inence of the sulci and ventricles related to cerebral atrophy. There are no extra-axial collections . Flow voids are seen in the cerebral arteries on the T2-weighted sequences consistent with their ex pected patency. Patient has had bilateral ocular lens surgery. Soft tissue is unremarkable. IMPRESSION: 1. No acute intracranial findings. 2. Chronic age related findings. Reviewed, dictated and finalized at location A.
--- NOTE | 2021-07-14 18:24 | ECG_ITS ---
Measurements Intervals [place] Rate: 89 P: 12 OR: 146 QRS: 6 QRSD: 94 T: 68 QT: 390 QTc: 477 Interpretive Statements SINUS RHYTHM LEFT VENTRICULAR HYPERTROPHY WITH ST-T CHANGE CONSIDER INFERIOR INFARCT, AGE INDETERMINATE BORDERLINE T WAVE ABNORMALITY- ANERIOR LEADS BASELINE ARTIFACT- III, V6 ABNORMAL ECG Electronically Signed On 07-14-2021 20:10:35 CDT by Alfredo Wright D.O.
[2021-07-14 18:27] VITALS: BP 135/67; PULSE 91; RESP 18; TEMP 36.2; O2SAT 96
[2021-07-14 19:00] LABS: Basophils Percent Auto 0.5 % (0.2-1.2); Eosinophils Absolute Auto 0.1 K/mm3 (0-0.3); Eosinophils Percent Auto 0.7 % (0-4.4); Hematocrit 33.8 % (37.0-47.0); Hemoglobin 10.3 g/dL (12.0-15.0); Immature Granulocyte Absolute 0.05 K/mm3 (0.00-0.031); Immature Granulocyte Percent A 0.6 % (0-0.5); Lymphocytes Absolute Auto 1.41 K/mm3 (0.9-3.2); Lymphocytes Percent Auto 16.9 % (18.3-44.2); Mean Corpuscular HGB Conc 30.5 g/dl (32-36); Mean Corpuscular Hemoglobin 25.7 pg (26-34); Mean Corpuscular Volume 84.3 fl (80-100); Mean Platelet Volume 9.3 fl (7.4-10.4); Monocytes Absolute Auto 0.8 K/mm3 (0.1-0.6); Monocytes Percent Auto 9.7 % (2.6-8.5); Neutrophils Percent Auto 71.6 % (45.5-73.1); Platelet Count Result 354 k/mm3 (150-375); Red Blood Count 4.01 M/mm3 (4.2-5.4); Red Cell Distribution Width 18.6 % (11.5-14.5); White Blood Count 8.3 K/mm3 (4.5-10.0)
[2021-07-14 19:09] LABS: Anion Gap 8 mmol/L (8-16); Blood Urea Nitrogen 15 mg/dL (7-17); Calcium 9.6 mg/dL (8.4-10.2); Carbon Dioxide 31 mmol/L (22-30); Chloride 98 mmol/L (98-107); Estimated CRCL calculation 43 ml/min; Estimated Glomerular Filt Rate 54; Glucose 169 mg/dL (65-110); Sodium 137 mmol/L (137-145)
[2021-07-14 19:11] LABS: Partial Thromboplastin Time 28.6 SECONDS (22.3-36.8); Prothrombin Time 12.7 Seconds (11.1-14.7)
[2021-07-14 19:21] LABS: Troponin I < 0.012 ng/mL (0.000-0.034)
[2021-07-14 20:16] VITALS: BP 141/73; PULSE 89; RESP 18; O2SAT 98
[2021-07-14 20:31] VITALS: BP 147/75; PULSE 84; RESP 16; O2SAT 96
[2021-07-14 22:11] VITALS: BP 136/78; PULSE 86; RESP 17; O2SAT 94
[2021-07-14 22:47] VITALS: PULSE 83; RESP 16; O2SAT 97
[2021-07-14 22:50] LABS: Troponin I < 0.012 ng/mL (0.000-0.034)
--- NOTE | 2021-07-14 22:52 | ED.CHESTPAIN ---
HPI - Chest Pain General Chief Complaint: Chest Pain Stated Complaint: chest pain , SOB Time Seen by Provider: 07/14/21 19:55 Source: patient and family Mode of arrival: EMS Limitations: no limitations History of Present Illness HPI narrative: 75-year-old female History of hypertension, GERD, fibromyalgia, psoriatic arthritis and type 2 diabetes Here because of feeling generally unwell and chest pain Patient says that during the day today she was doing her usual ADLs which are not very strenuous due to her arthritis and had some mild shortness of breath which became intertwined with some increasing anxiety and poorly described chest discomfort as the day went on becoming fairly significant around 3 or 4 PM She and her did realize around that time that she had missed all of her medications for 2 consecutive days, and she took them, but did not get sufficient relief of her symptoms so summoned EMS EMS put her on oxygen and gave her aspirin nitroglycerin She is currently asymptomatic Related Data Home Medications Medication Instructions Recorded Confirmed folic acid 1 mg tablet 1 mg PO DAILY 02/22/20 05/15/21 cholecalciferol (vitamin D3) 50 50 mcg PO DAILY 06/28/20 05/15/21 mcg (2,000 unit) capsule methotrexate sodium 25 mg/mL 25 mg IM WEEKLY ml 06/28/20 05/15/21 injection solution hmcjujdalsmk-vdztjzug-hjmaex tablet 1 tablet PO DAILY 06/28/20 05/15/21 vit C 250 mg-vit E 200 unit-zinc 1 cap PO DAILY cap 06/28/20 05/15/21 ox 12.5 dh-ylmwoz-nelspe-zeax capsule blood sugar diagnostic 03/08/21 05/09/21 glipizide 5 mg tablet 5 mg PO DAILY 03/08/21 05/15/21 levothyroxine 50 mcg capsule 50 mcg PO DAILY 03/08/21 05/15/21 magnesium oxide 400 mg PO DAILY 03/08/21 05/15/21 omega 5-yxz-fzi-fish oil 1,000 mg 1 cap PO DAILY 03/08/21 05/15/21 (120 mg-180 mg) capsule potassium chloride 10 mEq 10 meq PO DAILY 03/08/21 05/15/21 tablet,extended release secukinumab 150 mg/mL subcutaneous 150 mg SUBCUT .q2week ml 05/09/21 05/15/21 syringe azathioprine 07/14/21 tizanidine mg 07/14/21 Allergies Allergy/AdvReac Type Severity Reaction Status Date / Time cephalexin Allergy Severe Anaphylaxis Verified 07/14/21 20:45 Review of Systems Review of Systems: All systems reviewed & are unremarkable except as noted in HPI and below Constitutional: Constitutional: Reports no additional constitutional complaints, Denies chills, Denies fever(s) and Denies headache(s) Eyes: Eyes: Reports no additional eye complaints and Denies change in vision ENT: Denies headache(s) and Denies sore throat Cardiovascular: Cardiovascular: Reports chest pain and Denies dyspnea Respiratory: Respiratory: Denies cough and Reports dyspnea Gastrointestinal: Gastrointestinal: Denies abdominal pain, Denies diarrhea and Denies vomiting Genitourinary: Genitourinary: Denies urinary frequency and Denies dysuria Musculoskeletal: Musculoskeletal: Reports back pain, Reports myalgias, Denies deformity, Reports arthralgias, Reports joint swelling and Denies numbness Integumentary/Breasts: Skin/Breast: Denies rash and Denies wounds Neurologic: Denies headache(s), Denies focal weakness and Denies numbness Psychiatric: Psychiatric: Reports no additional psychiatric complaints Endocrine: Endocrine: Reports no additional endocrine complaints Hematologic/Lymphatic: Hematologic/Lymphatic: Reports no additional hematologic/lymphatic complaints Allergic/Immunologic: Allergic/Immunologic: Reports no additional allergic/immunologic complaints [facility] Past Medical History Medical History Anal fissure Anemia Anxiety Bronchitis Cataracts, bilateral Closed nondisplaced fracture of proximal phalanx of lesser toe Depression Diabetes Diverticulitis Diverticulosis of colon (without mention of hemorrhage) Emphysema of lung Essential (primary) hypertension Fatty liver Gastro-esophageal reflux disea
[2021-07-14 23:50] VITALS: BP 146/78; PULSE 80; RESP 14; O2SAT 97
[2021-07-15] VITALS (24 sets, daily range): BP systolic 105–158; BP diastolic 60–99; PULSE 61–80; RESP 16–20; TEMP 36.1–37; O2SAT 91–97; BMI 34.1
--- NOTE | 2021-07-15 | ECHO_ITS ---
Patient Info Name: Blanca Nam Age: 75 years : 1945 Gender: Female Ht: 62 in Wt: 186 lbs BSA: 1.96 m2 HR: 61 bpm BP: 147 / 99 mmHg Technical Quality: Poor Exam Date: 07/15/2021 9:48 AM Exam Location: [facility] Patient Status: Outpatient Admit Date: 07/14/2021 Staff Ordering Physician: Nichole Meredith PA-C Driller Multiple Spindle: Yamileth Cuellar RDCS Attending Provider: Nichole Meredith PA-C Referring Physician: Viri ABRAHAM; Exam Type: CA echo dop color flow w con Study Info Indications R07.9 - Chest pain, unspecified Complete two-dimensional, color flow and Doppler transthoracic echocardiogram is performed with contrast to opacify the left ventricle and to improve the deliniation of the left ventricle endocardial borders. Contrast/Agitated Saline Contrast/Ag. Saline: Definity Amount: 4.00 ml Reason for Poor Study: poor echocardiographic windows Summary 1. Left ventricular chamber dimension is normal. 2. Definity contrast administered improved wall motion interpretation. 3. Left ventricular systolic function is normal, estimated at 55-60%. 4. There is mildly increased left ventricular wall thickness. 5. The left ventricular diastolic function is grade I diastolic dysfunction. 6. E/e' 13 is mildly elevated. 7. Right ventricular systolic function is mildly reduced based on a abnormal TAPSE 1.5 cm. Left Ventricle E/e' 13 is mildly elevated. Definity contrast administered improved wall motion interpretation. Left ventricular chamber dimension is normal. Left ventricular systolic function is normal, estimated at 55-60%. There is mildly increased left ventricular wall thickness. The left ventricular diastolic function is grade I diastolic dysfunction. Right Ventricle Right ventricular systolic function is mildly reduced based on a abnormal TAPSE 1.5 cm. Right ventricular chamber dimension is not well visualized. Left Atria Left atrial chamber dimension is normal. Right Atria Right atrial chamber dimension is not well visualized. Aortic Valve The aortic valve is not well visualized. Cannot determine number of aortic valve leaflets. There is no aortic valve stenosis. There is no aortic valve regurgitation. Pulmonic Valve There is no pulmonic regurgitation. Mitral Valve There is no mitral valve stenosis. There is no mitral valve regurgitation. Tricuspid Valve There is no tricuspid valve regurgitation. Pericardium/Pleural There is no pericardial effusion. Inferior Vena Cava Normal inferior vena cava with >50% collapse upon inspiration consistent with normal right atrial pressure, 5 mmHg. Aorta The aortic root size at the sinus of Valsalva is normal. Left Ventricular Outflow Tract Name Value Normal LVOT 2D LVOT Diameter 2.07 cm LVOT Doppler LVOT Peak Gradient 2 mmHg LVOT Mean Gradient 1 mmHg LVOT VTI 16.46 cm LVOT VTI/AV VTI Ratio 0.71 LVOT Stroke Volume 55.30 ml
[2021-07-15] MEDS: ONDANSETRON INJ 4 MG/2 ML VIAL IV PUSH (00:01)
[2021-07-15] MEDS: IBUPROFEN 400 MG TABLET 800 MG PO (00:01)
--- NOTE | 2021-07-15 00:47 | PM.IMHP ---
H&P: HPI History of Present Illness Date/Time: 07/15/21 00:47 Chief Complaint: Chest discomfort Narrative: This is a 75-year-old female with past medical history significant for psoriatic arthritis, hypertension, chronic bronchitis, COPD/emphysema, former smoker, gastroesophageal reflux disease, fatty liver, rheumatoid arthritis, peripheral neuropathy, sleep apnea. Patient presented to the emergency room after episode of chest discomfort in the retrosternal area EMS was called and patient was rushed to the emergency room she received a nitroglycerin which relieved the pain by the time the patient arrived to emergency room she was back to her usual. She denies any nausea ,vomiting, shortness of breath ,cough, sputum production ,PND ,orthopnea, claudication, near syncope, syncope, dizziness or lightheadedness ,no fevers, no rigors, no chills, no leg swelling. Preliminary workup has been essentially non rib Review of Systems Review of Systems: Chest discomfort Constitutional: Constitutional: Denies chills, Denies fatigue, Denies fever(s), Denies malaise, Denies night sweats and Denies poor appetite Eyes: Eyes: Denies change in vision ENT: Denies dysphagia, Denies nasal congestion, Denies nasal discharge, Denies nasal obstruction and Denies odynophagia Cardiovascular: Cardiovascular: Reports chest pain, Denies syncope, Denies rapid heart rate, Denies claudication, Denies radiating jaw, neck or arm pain, Denies palpitations, Denies dyspnea and Denies dyspnea on exertion Respiratory: Respiratory: Denies change in phlegm color, Denies chest congestion, Denies cough, Denies excessive phlegm production and Denies dyspnea Gastrointestinal: Gastrointestinal: Denies abdominal pain, Denies belching, Denies GI cramping, Denies dyspepsia, Denies heartburn, Denies diarrhea, Denies nausea and Denies vomiting Genitourinary: Genitourinary: Denies dysuria and Denies flank pain Musculoskeletal: Musculoskeletal: Reports back pain and Reports arthralgias Integumentary/Breasts: Skin/Breast: Denies rash Neurologic: Denies focal weakness and Denies Sensory deficit (Neuro) Psychiatric: Psychiatric: Reports no additional psychiatric complaints and Reports as per HPI Endocrine: Endocrine: Reports as per HPI Hematologic/Lymphatic: Hematologic/Lymphatic: Reports as per HPI Allergic/Immunologic: Allergic/Immunologic: Reports as per HPI [facility] Past Medical History Medical History Anal fissure Anemia Anxiety Bronchitis Cataracts, bilateral Closed nondisplaced fracture of proximal phalanx of lesser toe Depression Diabetes Diverticulitis Diverticulosis of colon (without mention of hemorrhage) Emphysema of lung Essential (primary) hypertension Fatty liver Gastro-esophageal reflux disease without esophagitis History of basal cell carcinoma (BCC) Mixed hyperlipidemia Osteoarthritis of left knee Peripheral neuropathy Psoriasis 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 Sleep apnea in adult Surgical History Surgical History H/O section H/O lumbosacral spine surgery X3 History of carpal tunnel release History of colonoscopy Hx of abdominal surgery repair of anal fissure Hx of cataract surgery Hx of spinal surgery lumbar laminectomy Hx of tubal ligation Family History Family History Mother Hypertension, Onset Age: 97 Father Family history of lung cancer, Onset Age: 94 Family history of malignant neoplasm Sibling Family history of blood dyscrasia Other Family history of arthritis Family history of seizure disorder No family history of cardiovascular disease No family history of diabetes mellitus No family history of hypertension Social History Social History (Reviewed 07/14/21 @ 23:54 by
--- NOTE | 2021-07-15 01:16 | PC.NURSE ---
This patient, Blanca Nam, was admitted to IMU Room 212-01 on 07/15/21 at 0110. Patient/family oriented to hospital policies and general routines including ID bracelet, bed and alarms, visiting hours, pain management, procedures, bathroom and other care routines, personal items, smoking policy, room service/diet, and visiting hours. Information on how to activate the Rapid Response Team has been discussed. Patient/Family are encouraged to report perceived risks to care and to ask questions if they do not understand what they are told or what they should do.
[2021-07-15 01:37] LABS: Troponin I < 0.012 ng/mL (0.000-0.034)
[2021-07-15] MEDS: SODIUM CHLORIDE 0.9% IV 1,000 ML 60 ML IV CONT (02:07)
--- NOTE | 2021-07-15 06:00 | ECG_ITS ---
Measurements Intervals [place] Rate: 66 P: 36 VT: 202 QRS: 19 QRSD: 104 T: 86 QT: 462 QTc: 485 Interpretive Statements SINUS RHYTHM BORDERLINE ST-T WAVE ABNORMALITY- ANTEROLAT/HIGH LAT LEADS BASELINE WANDER- I, II BORDERLINE ECG Electronically Signed On 07-15-2021 8:02:57 CDT by Alfredo Wright D.O.
[2021-07-15] MEDS: OPTI-GEN TAB 1 TABLET PO (08:07)
[2021-07-15] MEDS: ASPIRIN 81 MG CHEWABLE TABLET PO (08:07)
[2021-07-15] MEDS: PANTOPRAZOLE 40 MG TABLET BY MOUTH (08:08)
[2021-07-15] MEDS: MAGNESIUM OXIDE 400 MG TABLET PO (08:08)
[2021-07-15] MEDS: DULoxetine HCL 60 MG CAPSULE.DR 120 MG BY MOUTH (08:08)
[2021-07-15] MEDS: METOPROLOL SUCCINATE EXT REL 100 MG TABCR BY MOUTH (08:09)
[2021-07-15] MEDS: CHOLECALCIFEROL 1,000 UNITS TABLET 2000 UNITS PO (08:09)
[2021-07-15] MEDS: GABAPENTIN 300 MG CAPSULE PO ×2 (08:09→20:06)
[2021-07-15] MEDS: FOLIC ACID 1 MG TABLET PO (08:09)
[2021-07-15] MEDS: amLODIPine BESYLATE 5 MG TABLET BY MOUTH (08:10)
[2021-07-15] MEDS: azaTHIOprine 50 MG TABLET BY MOUTH (08:10)
[2021-07-15] MEDS: TIZANIDINE HCL 2 MG TABLET BY MOUTH (08:26)
[2021-07-15 11:59] LABS: Basophils Percent Auto 0.4 % (0.2-1.2); Eosinophils Absolute Auto 0.1 K/mm3 (0-0.3); Eosinophils Percent Auto 1.6 % (0-4.4); Hematocrit 29.9 % (37.0-47.0); Hemoglobin 9.2 g/dL (12.0-15.0); Immature Granulocyte Absolute 0.02 K/mm3 (0.00-0.031); Immature Granulocyte Percent A 0.4 % (0-0.5); Lymphocytes Absolute Auto 1.22 K/mm3 (0.9-3.2); Lymphocytes Percent Auto 21.4 % (18.3-44.2); Mean Corpuscular HGB Conc 30.8 g/dl (32-36); Mean Corpuscular Hemoglobin 25.8 pg (26-34); Mean Corpuscular Volume 83.8 fl (80-100); Mean Platelet Volume 9.4 fl (7.4-10.4); Monocytes Absolute Auto 0.6 K/mm3 (0.1-0.6); Monocytes Percent Auto 10.2 % (2.6-8.5); Neutrophils Absolute Auto 3.8 K/mm3 (1.3-6.7); Platelet Count Result 313 k/mm3 (150-375); Red Blood Count 3.57 M/mm3 (4.2-5.4); Red Cell Distribution Width 18.2 % (11.5-14.5); White Blood Count 5.7 K/mm3 (4.5-10.0)
[2021-07-15 12:07] LABS: Hemoglobin A1C 7.4 % (<5.7)
[2021-07-15 12:11] LABS: Anion Gap 4 mmol/L (8-16); Blood Urea Nitrogen 13 mg/dL (7-17); Calcium 9.1 mg/dL (8.4-10.2); Carbon Dioxide 31 mmol/L (22-30); Chloride 100 mmol/L (98-107); Cholesterol 267 mg/dL (0-200); Estimated CRCL calculation 60 ml/min; Estimated Glomerular Filt Rate > 60; Glucose 128 mg/dL (65-110); HDL Direct 42 mg/dL; Potassium 3.9 mmol/L (3.4-5.0); Sodium 135 mmol/L (137-145); Triglycerides 214 mg/dL (<150)
[2021-07-15 12:22] LABS: LDL Cholesterol Direct 178 mg/dL
--- NOTE | 2021-07-15 13:18 | PM.IMPN ---
Progress Note: A&P Assessment and Plan (1) Shortness of breath: Code(s): R06.02 - Shortness of breath Status: Acute Assessment and Plan: Patient has history of COPD and stated her inhalers helped her breathing prior to coming in. I do not auscultate any wheezing on exam but will try a breathing treatment to see if she feels better. CXR on arrival showed no acute cardiopulmonary disease She denies pleuretic chest pain, leg swelling or calf pain and O2 otherwise 96% on RA. She does have reproductible chest pain to left side which she states she has had. Denies any Chest pain associated with her shortness of breath Continue monitoring SOB. Duoneb treatments (2) Dizziness: Code(s): R42 - Dizziness and giddiness Status: Acute Assessment and Plan: Reported feeling dizzy, off balance, unsteady and her thought she had slurred speech prior to arrival. Orthostatics were positive but the nurse said she was not feeling lightheaded or dizzy, she was just weak in the legs - Will order Damion Hose and recheck Orthostatics Will obtain CT Head Echocardiogram pending Tele shows no arrhythmia, NSR rate 71 BPM. Will order Meclizine as needed for dizziness Ordering UA with reflux culture to rule out UTI causing Dizziness/Weakness Order PT/OT for further evaluation and monitoring (3) Nonspecific chest pain: Code(s): R07.9 - Chest pain, unspecified Status: Acute Assessment and Plan: Had reproducible chest pain on exam but denies any other concerning chest pains. 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 (7) Essential (primary) hypertension: Code(s): I10 - Essential (primary) hypertension Status: Acute Assessment and Plan: BP slightly elevated 147/99 this morning prior to home medications being given Continue home meds Continue to monitor (8) Diabetes mellitus: Code(s): E11.9 - Type 2 diabetes mellitus without complications Status: Acute Assessment and Plan: She is on Metformin daily, and her HgbA1c was 7.4% suggesting diabetes. Will switch to a DM diet and glucose checks ACHS, SSI, and hypoglycemic protocol. (9) Mixed hyperlipidemia: Code(s): E78.2 - Mixed hyperlipidemia Status: Acute Assessment and Plan: She has diabetes and Lipid Panel was very abnormal with elevated TC 267, LDL 178 and Triglycerides 214. Will talk to her about starting a Statin medication Time Spent With Patient Time with patient: 25 - 35 minutes Subjective Date/time seen: 07/15/21 13:18 Interval history: The patient is a 75 year old woman with a history of Rheumatoid arthritis, COPD, macular degeneration, DM, HTN, who presented to the ER stating she could not catch her breath . The patient states the evening before coming in she did not sleep very well waking up with a nightmare. She woke up not feeling very well and having trouble catching her breath. She reports increased mucus production than normal, but normal color. She has been having some postnasal drip and nasal congestion
[2021-07-15] MEDS: IPRATROPIUM BR 0.02% INH SOLN 0.5 MG/2.5 ML VIAL INHALATION ×2 (14:02→21:17)
[2021-07-15] MEDS: ALBUTEROL SULFATE NEB 2.5 MG/0.5 ML INH 5 MG INHALATION ×2 (14:02→21:17)
[2021-07-15] MEDS: LORATADINE 5 MG TABLET PO (14:16)
[2021-07-15] MEDS: MECLIZINE HCL 12.5 MG TABLET PO (14:16)
[2021-07-15 14:19] LABS: Add Urine Microscopic? YES; Appearance Urine Clear (Clear); Bilirubin Urine Negative (Negative); Blood Urine Negative (Negative); Color Urine Yellow (Yellow); Glucose Urine UA Negative (Negative); Ketones Urine Negative (Negative); Leukocyte Esterase Ur Trace LEU/UL (Negative); Nitrate Urine Negative (Negative); Protein Urine Negative (Negative); RBC Urine 0-2 /hpf (0-2); Specific Grav Ur 1.011 (1.001-1.035); Squamous Epithelial Cell Urine Rare /hpf (Few); Urobilinogen Urine Negative mg/dL (<2.0); WBC Urine 0-3 /hpf
[2021-07-15] MEDS: ENOXAPARIN 40 MG/0.4 ML SYRINGE SUB-Q (14:22)
[2021-07-15 16:50] LABS: Glucose Point of Care 197 mg/dl (65-105)
[2021-07-15] MEDS: methylPREDNISolone SOD SUCC 40 MG VIAL IV PUSH ×2 (17:20→21:08)
[2021-07-15] MEDS: traZODone HCL 50 MG TABLET 150 MG PO (20:06)
[2021-07-15] MEDS: LORazepam (*CRX) 0.5 MG TABLET PO (20:07)
[2021-07-15 20:38] LABS: Glucose Point of Care 197 mg/dl (65-105)
[2021-07-16] VITALS (9 sets, daily range): BP systolic 124–150; BP diastolic 44–79; PULSE 71–96; RESP 16–20; TEMP 36.3–36.5; O2SAT 93–96
--- NOTE | 2021-07-16 02:27 | PCRCNOTE ---
Pt requested not to be woken up for 02:00 neb treatment. Pt was advised to let the nurse know if she changed her mind or felt she needed the treatment.
[2021-07-16 04:59] LABS: Hematocrit 31.7 % (37.0-47.0); Hemoglobin 9.7 g/dL (12.0-15.0); Mean Corpuscular HGB Conc 30.6 g/dl (32-36); Mean Corpuscular Hemoglobin 25.9 pg (26-34); Mean Corpuscular Volume 84.5 fl (80-100); Mean Platelet Volume 9.4 fl (7.4-10.4); Platelet Count Result 322 k/mm3 (150-375); Red Blood Count 3.75 M/mm3 (4.2-5.4); Red Cell Distribution Width 18.3 % (11.5-14.5)
[2021-07-16] MEDS: methylPREDNISolone SOD SUCC 40 MG VIAL IV PUSH ×2 (05:02→13:19)
[2021-07-16 05:13] LABS: Anion Gap 4 mmol/L (8-16); Blood Urea Nitrogen 11 mg/dL (7-17); Calcium 9.3 mg/dL (8.4-10.2); Carbon Dioxide 30 mmol/L (22-30); Chloride 103 mmol/L (98-107); Estimated CRCL calculation 70 ml/min; Estimated Glomerular Filt Rate > 60; Glucose 239 mg/dL (65-110); Magnesium 2.1 mg/dL (1.6-2.3); Potassium 4.1 mmol/L (3.4-5.0); Sodium 137 mmol/L (137-145)
[2021-07-16 08:22] LABS: Glucose Point of Care 215 mg/dl (65-105)
[2021-07-16] MEDS: GABAPENTIN 300 MG CAPSULE PO (08:35)
[2021-07-16] MEDS: LORATADINE 5 MG TABLET PO (08:35)
[2021-07-16] MEDS: CHOLECALCIFEROL 1,000 UNITS TABLET 2000 UNITS PO (08:36)
[2021-07-16] MEDS: TIZANIDINE HCL 2 MG TABLET BY MOUTH (08:36)
[2021-07-16] MEDS: FOLIC ACID 1 MG TABLET PO (08:36)
[2021-07-16] MEDS: DULoxetine HCL 60 MG CAPSULE.DR 120 MG BY MOUTH (08:37)
[2021-07-16] MEDS: ASPIRIN 81 MG CHEWABLE TABLET PO (08:37)
[2021-07-16] MEDS: MAGNESIUM OXIDE 400 MG TABLET PO (08:37)
[2021-07-16] MEDS: amLODIPine BESYLATE 5 MG TABLET BY MOUTH (08:37)
[2021-07-16] MEDS: PANTOPRAZOLE 40 MG TABLET BY MOUTH (08:37)
[2021-07-16] MEDS: OPTI-GEN TAB 1 TABLET PO (08:37)
[2021-07-16] MEDS: METOPROLOL SUCCINATE EXT REL 100 MG TABCR BY MOUTH (08:38)
[2021-07-16] MEDS: ENOXAPARIN 40 MG/0.4 ML SYRINGE SUB-Q (08:38)
[2021-07-16] MEDS: azaTHIOprine 50 MG TABLET BY MOUTH (08:38)
[2021-07-16] MEDS: INSULIN ASPART (*BKC) 100 UNITS/ML SUB-Q ×2 (09:11→13:18)
[2021-07-16 12:03] LABS: Glucose Point of Care 244 mg/dl (65-105)
--- NOTE | 2021-07-16 13:36 | PM.DS ---
DS: Admitting Diagnosis Discharge Date 07/16/21 Admitting Diagnosis SOB DS: Discharge Diagnosis Discharge Diagnosis (1) Shortness of breath: Code(s): R06.02 - Shortness of breath Status: Acute Assessment and Plan: The patient is a 75 year old woman with a history of Rheumatoid arthritis, COPD, macular degeneration, DM, HTN, who presented to the ER stating she could not catch her breath . The patient states the evening before coming in she did not sleep very well waking up with a nightmare. She woke up not feeling very well and having trouble catching her breath. She reports increased mucus production than normal, but normal color. She has been having some postnasal drip and nasal congestion and taking intermittent allergy pills. She also reported feeling off-balance and unsteady on her feet along with generalized weakness. She stated her reported her having possible slurred speech , but she did not think she did and denied focal weakness/tingling/numbness facial droop or other issues. She has COPD and on inhalers which she has been taking and denies any pleuretic chest pain, wheezing, change to her cough. She states her inhalers helped with her breathing. She denies this feeling being similar to her COPD exacerbation in the past. She denies urinary symptoms but states she does have issues with emptying her bladder at times. She does have left sided chest pain to palpation. She has reported a low grade fever and chills as well. Denies any leg swelling, calf pain, lightheadedness, syncope, nausea, vomiting, abdominal pain, diarrhea, GERD symptoms, or any other symptoms at this time. CXR on arrival showed no acute cardiopulmonary disease She denies pleuritic chest pain, leg swelling or calf pain and O2 otherwise 96% on RA. She does have reproducible chest pain to left side which she states she has had. Patient has history of COPD and stated her inhalers helped her breathing prior to coming in. We added Duoneb treatments which she states helped with her breathing as well as IV Solu-medrol which helped as well. She also states she has not felt this good in a long time and was singing hallelTour Deskjah this morning. I believe she was going into an RA flare over the last 1 month with vague symptoms on top of possible COPD exacerbation vs anxiety. She is feeling much better at this time and plans to discharge home on Medrol Dose Pack which she has had several times in the past for her RA flares. (2) Dizziness: Code(s): R42 - Dizziness and giddiness Status: Acute Assessment and Plan: Reported feeling dizzy, off balance, unsteady and her thought she had slurred speech prior to arrival. Orthostatics were positive but the nurse said she was not feeling lightheaded or dizzy, she was just weak in the legs - CT head showed no acute intracranial abnormality. Chronic age-related findings. MRI brain showed No acute intracranial findings. Chronic age related findings. Echo showed Left ventricular chamber dimension is normal. Definity contrast administered improved wall motion interpretation. Left ventricular systolic function is normal, estimated at 55-60%. There is mildly increased left ventricular wall thickness.The left ventricular diastolic function is grade I diastolic dysfunction. E/e' 13 is mildly elevated. Right ventricular systolic function is mildly reduced based on a abnormal TAPSE 1.5 cm. UA was normal and no signs of infection She had Damion Hose Placed and she worked with therapy and did not feel like she was having anymore dizziness. Will continue PT/OT with Home Health at discharge (3) Nonspecific chest pain: Code(s): R07.9 - Chest pain, unspecified Status: Acute Assessment and Plan: Had reproducible chest pain on exam but denies any other concerning chest pains. Serial troponins negative x3 EKG with no acute changes Chest x-ray showing no acute abnormality I believ
--- NOTE | 2021-07-16 15:55 | PC.NURSE ---
Patient discharged to home at 14:15. Education was provided on monitoring blood glucose and a one-touch system was provided. Patient will follow up with her primary care physician tomorrow.
== END 2021-07-16 14:15 | disposition home health service (06) ==
LOC: ANHED 23:57 → ANHIMU 07-15 00:05
PROVIDERS: Physician Assistant; Admitting Provider Internal Medicine; Emergency Provider Emergency Medicine; PCP Family Medicine; Visit Provider Internal Medicine
DX: R06.02 Shortness of breath (principal); R07.89 Other chest pain; M05.779 Rheumatoid arthritis with rheumatoid factor of unspecified ankle and foot without organ or systems involvement; J43.9 Emphysema, unspecified; R42 Dizziness and giddiness; E11.42 Type 2 diabetes mellitus with diabetic polyneuropathy; E78.2 Mixed hyperlipidemia; K21.9 Gastro-esophageal reflux disease without esophagitis; I10 Essential (primary) hypertension; K76.0 Fatty (change of) liver, not elsewhere classified; G47.33 Obstructive sleep apnea (adult) (pediatric); Z79.84 Long term (current) use of oral hypoglycemic drugs; Z87.891 Personal history of nicotine dependence
CPT/HCPCS: 36415; 70450; 70551; 71046; 80048; 80061; 81001; 82948; 83036; 83735; 84484; 85025; 85027; 85610; 85730; 93005; 94640; 96361; 96372; 96374; 96375; 96376; 97161; 97165; 99285; A9270; C8929; G0378; J1650; J1815; J2405; J2920; J7030; Q9957

== ENCOUNTER 2021-08-29 00:46 | Day surgery (SDC) | payer MEDICARE, OTHER, SELFPAY ==
[2021-08-18 12:53] VITALS: BMI 35.0
--- NOTE | 2021-08-29 11:15 | WPDGICN ---
Assessment and Plan Assessment and plan (1) Dysphagia: Qualifiers: Dysphagia type: unspecified Qualified Code(s): R13.10 - Dysphagia, unspecified Code(s): R13.10 - Dysphagia, unspecified Status: Acute Assessment and Plan: Patient has difficulty swallowing. She does report some tenderness in the low sternal area suggesting possible acid reflux. Plan is for EGD to assess more thoroughly. Further recommendations will be given after endoscopy. GI Consult Note Consult date/time: 08/29/21 11:15 HPI: Blanca Nam is a 75 year old female Presents for EGD. Patient complains of difficulty swallowing this been present for quite some time. She appears to have difficulty with all types of foods. Food seems to catch in the upper port of the chest in the throat. Patient does notice lower substernal discomfort and tenderness. She denies any bleeding. She has had no weight loss. Previously felt to have multiple sclerosis this is now been excluded. She has been treated for ankylosing spondylitis. Family history is noncontributory. Review of Systems Review of Systems: All systems reviewed & are unremarkable except as noted in HPI and below PMFSH Past Medical History Medical History Anal fissure Anemia Anxiety Bronchitis Cataracts, bilateral Closed nondisplaced fracture of proximal phalanx of lesser toe Depression Diabetes Diverticulitis Diverticulosis of colon (without mention of hemorrhage) Emphysema of lung Essential (primary) hypertension Fatty liver Gastro-esophageal reflux disease without esophagitis History of basal cell carcinoma (BCC) Mixed hyperlipidemia Osteoarthritis of left knee Peripheral neuropathy Psoriasis 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 Sleep apnea in adult Surgical History Surgical History H/O section H/O lumbosacral spine surgery X3 History of carpal tunnel release History of colonoscopy Hx of abdominal surgery repair of anal fissure Hx of cataract surgery Hx of spinal surgery lumbar laminectomy Hx of tubal ligation Family History Family History Mother Hypertension, Onset Age: 97 Father Family history of lung cancer, Onset Age: 94 Family history of malignant neoplasm Sibling Family history of blood dyscrasia Other Family history of arthritis Family history of seizure disorder No family history of cardiovascular disease No family history of diabetes mellitus No family history of hypertension Social History Social History Smoking packs per day: 1 Smoking cigarettes per day: 20.0 Years smoked: 50 Smoking pack-years: 50.00 Smoking status: Former smoker Tobacco type: cigarettes Smoking end date: 09/16/18 Alcohol intake: current Drinks per week: 8 Alcohol use details: 10 Bottles Substance use: never Living arrangements: with family Gender identity (if verbalized by the patient): Female Spiritual care concerns: No Meds Home Medications and Allergies Home Medications Medication Instructions Recorded Confirmed Type cholecalciferol (vitamin D3) 50 50 mcg PO DAILY 06/28/20 08/18/21 History mcg (2,000 unit) capsule yvaurysmgcyt-xxohqzlw-ajlkyh tablet 1 tablet PO DAILY 06/28/20 08/18/21 History blood sugar diagnostic 03/08/21 07/25/21 History secukinumab 150 mg/mL subcutaneous 150 mg SUBCUT ml 05/09/21 07/25/21 History syringe lorazepam 0.5 mg tablet 0.5 mg PO DAILY PRN #30 tablet 06/26/21 08/18/21 Rx azathioprine 50 mg PO BID 07/14/21 08/18/21 History tizanidine 2 mg PO DAILY 07/14/21 08/18/21 History acetaminophen 650 mg PO Q4H PRN 07/15/21 08/18/21 History amlodipine 5 mg P
[2021-08-29 11:19] VITALS: BMI 34.7
[2021-08-29 11:21] VITALS: BP 154/74; PULSE 66; RESP 16; TEMP 36.9; O2SAT 97
[2021-08-29] MEDS: LACTATED RINGERS 1,000 ML 150 ML IV CONT (11:24)
[2021-08-29 11:28] LABS: Glucose Point of Care 178 mg/dl (65-105)
--- NOTE | 2021-08-29 11:30 | WPDANESEPPF ---
Anes - Initial Pre Proc Eval Procedure: Operation Date: 08/29/21 11:15 Proposed Procedures p Esophagogastroduodenoscopy - Pepe Nuñez MD Date/Time: 08/29/21 11:30 Surgeon: Pepe Nuñez MD Pre Op Diagnosis: Dysphagia Patient Data Age: 75 Gender: F Height: 1.57 m Weight: 86.3 kg Last Vital Signs Temp 98.4 F 08/29/21 11:21 Pulse 66 08/29/21 11:21 Resp 16 08/29/21 11:21 BP 154/74 H 08/29/21 11:21 Pulse Ox 97 08/29/21 11:21 Allergies Allergy/AdvReac Type Severity Reaction Status Date / Time cephalexin Allergy Severe Anaphylaxis Verified 08/29/21 11:11 Home Medications Medication Instructions Recorded Confirmed Type cholecalciferol (vitamin D3) 50 50 mcg PO DAILY 06/28/20 08/18/21 History mcg (2,000 unit) capsule rvwpbdahibhd-miqahkym-uuwraw tablet 1 tablet PO DAILY 06/28/20 08/18/21 History blood sugar diagnostic 03/08/21 07/25/21 History secukinumab 150 mg/mL subcutaneous 150 mg SUBCUT ml 05/09/21 07/25/21 History syringe lorazepam 0.5 mg tablet 0.5 mg PO DAILY PRN #30 tablet 06/26/21 08/29/21 Rx azathioprine 50 mg PO BID 07/14/21 08/18/21 History tizanidine 2 mg PO DAILY 07/14/21 08/18/21 History acetaminophen 650 mg PO Q4H PRN 07/15/21 08/18/21 History amlodipine 5 mg PO DAILY 07/15/21 08/18/21 History gabapentin 300 mg PO TID 07/15/21 08/18/21 History ibuprofen 600 mg PO Q6H PRN 07/15/21 08/18/21 History lamotrigine 100 mg PO BID 07/15/21 08/18/21 History metformin 500 mg PO DAILY 07/15/21 08/18/21 History metoprolol succinate 100 mg PO DAILY 07/15/21 08/18/21 History pantoprazole 40 mg PO DAILY 07/15/21 08/18/21 History aspirin [Children's Aspirin] 81 mg PO DAILY@0800 #30 tablet 07/16/21 08/18/21 Rx albuterol sulfate 2 puff INHALATION Q4H PRN #8.5 g 07/17/21 08/18/21 Rx blood sugar diagnostic #100 ea 07/25/21 07/25/21 Rx lancets 30 gauge #100 ea 07/27/21 Rx trazodone 50 mg tablet See Rx Instructions .ROUTE 08/11/21 08/18/21 Rx .COMPLEX #270 tablet biotin 10,000 mcg PO DAILY 08/18/21 08/18/21 History diphenhydramine HCl [Benadryl] 25 mg PO HS 08/18/21 08/18/21 History duloxetine 60 mg capsule,delayed See Rx Instructions .ROUTE 08/18/21 08/18/21 Rx release .COMPLEX #180 capsule prednisone 2.5 mg PO BID 08/18/21 08/18/21 History vit C,N-Su-usywo-lutein-zeaxan 1 tablet PO DAILY 08/18/21 08/18/21 History [PreserVision AREDS-2] Laboratory Tests 08/29/21 11:26 POC Capillary Glucose 178 mg/dl H mg/dl (65-105) Patient hx anesthesia problems: none Family hx anesthesia problems: none Results Review: All pre-operative results and documents have been reviewed as part of the pre-operative evaluation. 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
[2021-08-29 12:01] VITALS: BP 136/68; PULSE 65; RESP 16; O2SAT 93
[2021-08-29 12:11] VITALS: BP 150/79; PULSE 63; RESP 17; O2SAT 94
[2021-08-29 12:21] VITALS: BP 163/80; PULSE 61; RESP 18; O2SAT 96
== END 2021-08-29 12:30 | disposition home or self-care (01) ==
PROVIDERS: PCP Family Medicine; Visit Provider Internal Medicine Gastroenterology
PROC: 0DJ08ZZ Inspection of Upper Intestinal Tract, Via Natural or Artificial Opening Endoscopic (ICD-10-PCS; CPT 43235; principal; 2021-08-29 11:15)
DX: R13.19 Other dysphagia (principal); Z79.01 Long term (current) use of anticoagulants; Z79.82 Long term (current) use of aspirin; Z79.84 Long term (current) use of oral hypoglycemic drugs; Z79.51 Long term (current) use of inhaled steroids; D64.9 Anemia, unspecified; F41.8 Other specified anxiety disorders; I10 Essential (primary) hypertension; K21.9 Gastro-esophageal reflux disease without esophagitis; K76.0 Fatty (change of) liver, not elsewhere classified; E78.2 Mixed hyperlipidemia; Z85.828 Personal history of other malignant neoplasm of skin; M17.12 Unilateral primary osteoarthritis, left knee; G62.9 Polyneuropathy, unspecified; L40.9 Psoriasis, unspecified; M06.9 Rheumatoid arthritis, unspecified; M77.8 Other enthesopathies, not elsewhere classified; R56.9 Unspecified convulsions; G47.30 Sleep apnea, unspecified; Z87.891 Personal history of nicotine dependence; E66.9 Obesity, unspecified; Z68.34 Body mass index [BMI] 34.0-34.9, adult
CPT/HCPCS: 43450; 82948; J2001; J2704; J7120

== ENCOUNTER 2021-09-15 12:48 | Inpatient (IN) | payer MEDICARE, OTHER, SELFPAY ==
[2021-09-15] VITALS (11 sets, daily range): BP systolic 144–181; BP diastolic 73–140; PULSE 88–107; RESP 14–22; TEMP 36.1–36.9; O2SAT 93–97; BMI 34.7
--- NOTE | ~2021-09-15 | XR_ITS ---
EXAMINATION: XR chest 1V portable EXAM DATE: 09/17/2021 06:12 INDICATION: Dyspnea. COVID pneumonia. TECHNIQUE: Portable AP frontal chest x-ray was obtained. Comparison is made to prior examination from 09/15/2021. FINDINGS: No confluent consolidation, pneumothorax or pleural effusion suspected. Cardiomediastinal s ilhouette is normal. There are no osseous abnormalities identified. IMPRESSION: No acute cardiopulmonary findings. Reviewed, dictated and finalized at location A. SURY REPRESENTATIVE
--- NOTE | ~2021-09-15 | CT_ITS ---
EXAMINATION: CT brain wo con DATE: 09/15/2021 14:13 INDICATION: Altered mental status. TECHNIQUE: Computed tomography (CT) of the head was performed without intravenous contrast. The mA wa s adjusted according to patient size. Iterative reconstruction technique was employed. The dose-lengt h product was 605.33 mGy-cm. COMPARISON: Head CT 07/15/2021 FINDINGS: There are scattered areas of low attenuation in the cerebral white matter. There is no intr acranial hemorrhage, acute infarction, or abnormal intracranial mass lesion. The ventricles are amberly l in size. There are likely changes of ocular lens replacement surgeries. There is mild mucosal thick ening in the paranasal sinuses. The mastoid air cells are normal. IMPRESSION: 1. Stable extensive nonspecific cerebral white matter disease, which likely represents chronic small vessel ischemic disease. Reviewed, dictated and finalized at location A. NESS UNIT CONTROLLER IMPRESSION: 1. Stable extensive nonspecific cerebral white matter disease, which likely rep resents chronic small vessel ischemic disease.
--- NOTE | ~2021-09-15 | XR_ITS ---
EXAMINATION: XR chest 1V portable DATE: 09/15/2021 14:20 INDICATION: Shortness of breath. TECHNIQUE: A single frontal view of the chest was obtained. COMPARISON: Chest 2 views 07/14/2021, CT abdomen and pelvis 09/28/2020 FINDINGS: There is mild atelectasis at left lung base. No pleural effusion or pneumothorax. The heart size is normal. IMPRESSION: 1. Mild atelectasis at left lung base. Reviewed, dictated and finalized at location A. NSION WAREHOUSE SUPERVISOR
[2021-09-15 13:43] LABS: Glucose Point of Care 188 mg/dl (65-105)
--- NOTE | 2021-09-15 13:48 | ECG_ITS ---
Measurements Intervals [place] Rate: 103 P: 93 NC: 195 QRS: 43 QRSD: 104 T: 35 QT: 392 QTc: 516 Interpretive Statements SINUS TACHYCARDIA INFERIOR INFARCT, AGE INDETERMINATE BORDERLINE ST-T WAVE ABNORMALITY- HIGH LATERAL LEADS BASELINE ARTIFACT- I, II, III, AVR, AVL, AVF, V1-V6 ABNORMAL ECG Electronically Signed On 09-15-2021 14:54:20 NURSE GENERAL DUTY by Alfredo Wright D.O.
--- NOTE | 2021-09-15 13:55 | ED.AMS ---
HPI - Altered Mental Status General Chief Complaint: Altered Mental Status Stated Complaint: covid symptoms Time Seen by Provider: 09/15/21 13:46 Source: family, EMS and old records reviewed History of Present Illness HPI narrative: Patient has been noticed that the patient is a little bit confused, unable to get the words out right, walking with her walker and the bag of medicine attached to the walker which is unusual. Patient reports having 1 tablet of lorazepam at 6 AM. Patient's reported that patient usually take Ativan's only at night. History of Covid exposure 5 days ago. Patient is vaccinated for COVID, did not have the booster dose yet. Patient complaining of general body aches and pain Related Data Home Medications Medication Instructions Recorded Confirmed cholecalciferol (vitamin D3) 50 50 mcg PO DAILY 06/28/20 08/18/21 mcg (2,000 unit) capsule pzrmujxmmtrt-gdcpajfl-bdgkvb tablet 1 tablet PO DAILY 06/28/20 08/18/21 blood sugar diagnostic 03/08/21 07/25/21 secukinumab 150 mg/mL subcutaneous 150 mg SUBCUT ml 05/09/21 07/25/21 syringe azathioprine 50 mg PO BID 07/14/21 08/18/21 tizanidine 2 mg PO DAILY 07/14/21 08/18/21 acetaminophen 650 mg PO Q4H PRN 07/15/21 08/18/21 amlodipine 5 mg PO DAILY 07/15/21 08/18/21 gabapentin 300 mg PO TID 07/15/21 08/18/21 ibuprofen 600 mg PO Q6H PRN 07/15/21 08/18/21 lamotrigine 100 mg PO BID 07/15/21 08/18/21 metformin 500 mg PO DAILY 07/15/21 08/18/21 metoprolol succinate 100 mg PO DAILY 07/15/21 08/18/21 pantoprazole 40 mg PO DAILY 07/15/21 08/18/21 biotin 10,000 mcg PO DAILY 08/18/21 08/18/21 diphenhydramine HCl [Benadryl] 25 mg PO HS 08/18/21 08/18/21 prednisone 2.5 mg PO BID 08/18/21 08/18/21 vit C,D-Rh-lritl-lutein-zeaxan 1 tablet PO DAILY 08/18/21 08/18/21 [PreserVision AREDS-2] Allergies Allergy/AdvReac Type Severity Reaction Status Date / Time cephalexin Allergy Severe Anaphylaxis Verified 08/29/21 11:11 Review of Systems Review of Systems: CONSTITUTIONAL: Denies fever, chills, or sweats. EYES: Denies visual changes, redness, or discharge. ENT: Denies rhinorrhea, congestion, sore throat, or otalgia. CARDIOVASCULAR: Denies chest pain, palpitations, or edema. RESPIRATORY: Denies cough or dyspnea. GASTROINTESTINAL: Denies abdominal pain, nausea, vomiting, or diarrhea. GENITOURINARY: Denies dysuria or hematuria. SKIN: Denies rash or itching. MUSCULOSKELETAL: Denies back pain, joint pain, or myalgia. NEUROLOGIC: Denies headache, numbness, or weakness. PSYCHIATRIC: Denies anxiety or depression. 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 Sleep apnea in adult Surgical History Surgical History H/O section H/O lumbosacral spine surgery X3 History of carpal tunnel release History of colonoscopy Hx of abdominal surgery repair of anal fissure Hx of cataract surgery Hx of spinal surgery lumbar laminectomy Hx of tubal ligation Family History Family History Mother Hypertension, Onset Age: 97 Father Family history of lung cancer, Onset Age: 94 Family history of malignant neoplasm Sibling Family history of blood dyscrasia Other Family history of arthritis Family history of seizure disorder No family history of
[2021-09-15 14:00] LABS: Alveolar/Arterial O2 Gradient 49.5 mmHg; Base Excess ABG 2.4 mEq/l (+/-2.0); Device ROOM AIR; Fractional Inspired Oxygen 21 %; HCO3 ABG 25.6 mEq/l (22.0-26.0); Modified Allen's Test Pass; Oxygen Content ABG 13.8 %vol (16.0-22.0); Oxygen Saturation ABG 92.5 % (95.0-100.0); Oxyhemoglobin 89.8 % THb (90.0-100.0); PCO2 ABG 34.8 mmHg (35.0-45.0); PO2 ABG 58.6 mmHg (80.0-100.0); PO2 FiO2 Ratio Arterial Blood 2.79 %; Site Drawn RIGHT RADIAL; Total Hemoglobin 10.9 g/dL (12.0-18.0); pH ABG 7.485 (7.350-7.450)
--- NOTE | 2021-09-15 14:09 | PC.NURSE ---
Urine sample obtained by straight cath under sterile technique, well tolerated.
[2021-09-15 14:24] LABS: Add Urine Microscopic? YES; Appearance Urine Clear (Clear); Bilirubin Urine Negative (Negative); Blood Urine Negative (Negative); Color Urine Yellow (Yellow); Glucose Urine UA Negative (Negative); Ketones Urine Trace mg/dL (Negative); Leukocyte Esterase Ur Trace LEU/UL (Negative); Mucus Urine Rare /lpf; Nitrate Urine Negative (Negative); Protein Urine Negative (Negative); Specific Grav Ur 1.012 (1.001-1.035); Squamous Epithelial Cell Urine Rare /hpf (Few); Urobilinogen Urine Negative mg/dL (<2.0); WBC Urine 16-20 /hpf
[2021-09-15 14:43] LABS: Basophils Percent Auto 0.5 % (0.2-1.2); Eosinophils Percent Auto 0.3 % (0-4.4); Hematocrit 32.2 % (37.0-47.0); Hemoglobin 10.1 g/dL (12.0-15.0); Immature Granulocyte Absolute 0.08 K/mm3 (0.00-0.031); Immature Granulocyte Percent A 1.2 % (0-0.5); Lymphocytes Absolute Auto 0.27 K/mm3 (0.9-3.2); Lymphocytes Percent Auto 4.2 % (18.3-44.2); Mean Corpuscular HGB Conc 31.4 g/dl (32-36); Mean Corpuscular Hemoglobin 25.8 pg (26-34); Mean Corpuscular Volume 82.1 fl (80-100); Mean Platelet Volume 9.1 fl (7.4-10.4); Monocytes Absolute Auto 0.4 K/mm3 (0.1-0.6); Monocytes Percent Auto 6.1 % (2.6-8.5); Neutrophils Absolute Auto 5.6 K/mm3 (1.3-6.7); Neutrophils Percent Auto 87.7 % (45.5-73.1); Platelet Count Result 276 k/mm3 (150-375); Red Blood Count 3.92 M/mm3 (4.2-5.4); Red Cell Distribution Width 17.7 % (11.5-14.5); White Blood Count 6.4 K/mm3 (4.5-10.0)
[2021-09-15 14:48] LABS: Amphetamine Screen Urine Negative (Negative); Barbiturate Screen Urine Negative (Negative); Benzodiazepines Screen Urine Negative (Negative); Cannabinoid Screen Urine Negative (Negative); Cocaine Screen Urine Negative (Negative); Methadone Screen Urine Negative (Negative); Opiate Screen Urine Negative (Negative); Phencyclidine Screen Urine Negative (Negative)
[2021-09-15 14:53] LABS: Platelet Estimate Adequate (Adequate)
[2021-09-15 14:54] LABS: Stomatocytes 1+ (NORMAL); Target Cells 1+ (NORMAL)
[2021-09-15 15:00] LABS: Alanine Aminotransferase 18 U/L (4-35); Albumin Level 4.3 g/dL (3.5-5.1); Alkaline Phosphatase 105 U/L (38-126); Anion Gap 13 mmol/L (8-16); Aspartate Amino Transferase 31 U/L (14-36); Bilirubin,Total 0.4 mg/dL (0.2-1.3); Blood Urea Nitrogen 6 mg/dL (7-17); Calcium 9.2 mg/dL (8.4-10.2); Carbon Dioxide 24 mmol/L (22-30); Chloride 92 mmol/L (98-107); Estimated CRCL calculation 64 ml/min; Estimated Glomerular Filt Rate > 60; Glucose 185 mg/dL (65-110); Potassium 3.7 mmol/L (3.4-5.0); Sodium 129 mmol/L (137-145)
[2021-09-15 15:32] LABS: Acetaminophen < 10 ug/mL (10-30); Ethanol < 10 mg/dL (<10); Salicylate < 1.0 mg/dL (2-20)
[2021-09-15] MEDS: ONDANSETRON INJ 4 MG/2 ML VIAL IV PUSH (16:03)
[2021-09-15] MEDS: MORPHINE SULFATE (*CRX) 4 MG/ML INJ IV PUSH (16:04)
[2021-09-15 16:50] LABS: EDCOVIDSCREEN Positive (Negative)
[2021-09-15 18:40] LABS: Alanine Aminotransferase 19 U/L (4-35); Estimated CRCL calculation 64 ml/min; Estimated Glomerular Filt Rate > 60
[2021-09-15 18:48] LABS: Prothrombin Time 13.1 Seconds (11.1-14.7)
--- NOTE | 2021-09-15 19:00 | PC.NURSE ---
rec'd pt on o2 at 2 lpm nc. day nurse reports chepe pt desats to below 90% with activity
[2021-09-15] MEDS: REMDESIVIR 200 MG/NS 250 ML 200 MG/250 ML BAG 250 MG IVPB (20:04)
--- NOTE | 2021-09-15 21:11 | PM.IMHP ---
H&P: HPI History of Present Illness Date/Time: 09/15/21 21:11 Chief Complaint: Confused Narrative: 75-year-old female with past medical history of anxiety, hypertension, COPD, diabetes and rheumatoid arthritis who presented to the ER via EMS from home due to altered mental status. The patient reports that she started feels if she may have a anxiety tach and went to look for her medications. The patient reports that she has macular degeneration and may have miss read the bottles. She may have taken a medication that was not Ativan. The patient was found by her with a bag of medications requesting Ativan. Her reported that the patient was having difficulty getting her words out. Her decided to call EMS when she was still not acting right having difficulty getting her thoughts out. By the time she arrived in the ER her symptoms had resolved. The patient had been exposed to COVID 5 days ago during a family gathering. She reports that several family members are now ill. Her is also coughing. She had a negative test as outpatient yesterday but antigen testing today returned positive. She was vaccinated against COVID but it is not time for her to receive her booster yet. She is complaining of generalized myalgias increased from baseline. She has been having a cough for about a week. She reports that she has been avoiding going out in public and has been wearing a mask. She reports chronic loss of sense of taste and smell. She has had decreased appetite. She denies nausea vomiting abdominal pain. She has had some mild sore throat. She denies postnasal drip. She denies any chest pain. The patient had been placed on nasal cannula oxygen in the ER but had no documented hypoxia. At the time of my evaluation the patient was not on oxygen and was maintaining oxygen saturations between 94 and 97%. Review of Systems Review of Systems: 12 systems were reviewed with pertinent positives and negatives per HPI. Except as documented in the HPI, all other systems were reviewed and are negative. [facility] Past Medical History Medical History (Updated 09/16/21 @ 09:54 by Dyan Olea DO) Anal fissure Anemia Ankylosing spondylitis Anxiety B12 deficiency Bronchitis Closed nondisplaced fracture of proximal phalanx of lesser toe Constipation due to opioid therapy Depression Diabetes Diverticulitis Diverticulosis of colon (without mention of hemorrhage) Emphysema of lung Essential (primary) hypertension Fatty liver Gastro-esophageal reflux disease without esophagitis History of basal cell carcinoma (BCC) Macular degeneration Mixed hyperlipidemia Obstructive sleep apnea Osteoarthritis of left knee Peripheral neuropathy Psoriasis 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 Sleep apnea in adult Surgical History Surgical History (Updated 09/15/21 @ 21:39 by Dyan Olea DO) H/O section History of carpal tunnel release History of carpal tunnel surgery of left wrist History of colonoscopy History of lumbar laminectomy History of sinus surgery Hx of cataract surgery Hx of tubal ligation Status post anal fissurectomy Status post cataract extraction of both eyes with insertion of intraocular lens (~2014) Family History Family History Mother Hypertension, Onset Age: 97 Father Family history of lung cancer, Onset Age: 94 Family history of malignant neoplasm Sibling Family history of blood dyscrasia Other Family history of arthritis Family history of seizure disorder No family history of cardiovascular disease No family history of diabetes mellitus No family history of hypertension Social History Social History (Updated 09/15/21 @ 21:41 by Dyan Olea DO) Social History: The patient lives at home with her . She has smoked as much as 1.5 p
--- NOTE | 2021-09-15 23:57 | ADMGEN ---
This patient, Blanca Nam, was admitted to [facility] Surg Room 332-01. Patient/family oriented to hospital policies and general routines including ID bracelet, bed and alarms, visiting hours, pain management, procedures, bathroom and other care routines, personal items, smoking policy, room service/diet, and visiting hours. Information on how to activate the Rapid Response Team has been discussed. Patient/Family are encouraged to report perceived risks to care and to ask questions if they do not understand what they are told or what they should do.
[2021-09-16] VITALS (9 sets, daily range): BP systolic 123–168; BP diastolic 63–86; PULSE 64–86; RESP 14–22; TEMP 36–37.1; O2SAT 92–98
[2021-09-16 07:39] LABS: Alanine Aminotransferase 17 U/L (4-35); Estimated CRCL calculation 70 ml/min; Estimated Glomerular Filt Rate > 60
[2021-09-16 07:45] LABS: Prothrombin Time 13.2 Seconds (11.1-14.7)
[2021-09-16 08:12] LABS: Glucose Point of Care 140 mg/dl (65-105)
[2021-09-16] MEDS: metFORMIN HCL XR 500 MG TAB.SR.24H PO (09:22)
[2021-09-16] MEDS: CHOLECALCIFEROL 1,000 UNITS TABLET 2000 UNITS PO (09:22)
[2021-09-16] MEDS: TIZANIDINE HCL 2 MG TABLET PO (09:22)
[2021-09-16] MEDS: GABAPENTIN 300 MG CAPSULE PO ×3 (09:22→21:22)
[2021-09-16] MEDS: DEXAMETHASONE 2 MG TABLET 6 MG PO (09:22)
[2021-09-16] MEDS: DULoxetine HCL 60 MG CAPSULE.DR 120 MG BY MOUTH (09:22)
[2021-09-16] MEDS: lamoTRIgine 100 MG TABLET PO ×2 (09:23→16:31)
[2021-09-16] MEDS: PANTOPRAZOLE 40 MG TABLET PO (09:23)
[2021-09-16] MEDS: predniSONE 2.5 MG TABLET PO (09:23)
[2021-09-16 12:08] LABS: Glucose Point of Care 182 mg/dl (65-105)
[2021-09-16] MEDS: METOPROLOL SUCCINATE EXT REL 100 MG TABCR PO (12:37)
[2021-09-16] MEDS: ASPIRIN 81 MG CHEWABLE TABLET PO (12:37)
[2021-09-16] MEDS: amLODIPine BESYLATE 5 MG TABLET PO (12:37)
[2021-09-16] MEDS: ENOXAPARIN 40 MG/0.4 ML SYRINGE SUB-Q (12:47)
--- NOTE | 2021-09-16 14:44 | PM.IMPN ---
Progress Note: A&P Assessment and Plan (1) Pneumonia due to COVID-19 virus: Code(s): U07.1 - COVID-19; J12.82 - Pneumonia due to coronavirus disease 2019 Status: Acute (2) Acute alteration in mental status: Code(s): R41.82 - Altered mental status, unspecified Status: Acute (3) Diabetes mellitus: Qualifiers: Diabetes mellitus type: type 2 Diabetes mellitus alf insulin use: without intermediate school teacher use Diabetes mellitus complication status: with hyperglycemia Qualified Code(s): E11.65 - Type 2 diabetes mellitus with hyperglycemia Code(s): E11.9 - Type 2 diabetes mellitus without complications Status: Acute (4) Polypharmacy: Code(s): Z79.899 - Other intermediate school teacher (current) drug therapy Status: Acute Additional Plan Altered mental status negative CT head ABG reviewed does have UTI COVID positive as well mild hyponatremia. Confusion suspected to be a polypharmacy related could be related to underlying UTI/COVID Hyponatremia UTI allergy to cephalosporin will start Levaquin COVID-19 pneumonia on Decadron only no reported desaturation. Remdesivir discontinued however I will restart this back she has ankylosing spondylitis and immunosuppressed with prednisone regularly. Though she is vaccinated x2 she might not be well protected and might get worse. Will re-initiate remdesivir Mild hypoxia on 2 L oxygen Ankylosing spondylitis on chronic steroid therapy Diabetes mellitus type 2 Hypertension Anxiety disorder COVID-19 pneumonia Polypharmacy Macular degeneration DVT prophylaxis Lovenox Chronic steroid therapy with prednisone 2.5 mg b.i.d. for prednisone while on Decadron Code status full code Subjective Date/time seen: 09/16/21 14:44 Interval history: HPI:75-year-old female with past medical history of anxiety, hypertension, COPD, diabetes and rheumatoid arthritis who presented to the ER via EMS from home due to altered mental status. The patient reports that she started feels if she may have a anxiety tach and went to look for her medications. The patient reports that she has macular degeneration and may have miss read the bottles. She may have taken a medication that was not Ativan. The patient was found by her with a bag of medications requesting Ativan. Her reported that the patient was having difficulty getting her words out. Her decided to call EMS when she was still not acting right having difficulty getting her thoughts out. By the time she arrived in the ER her symptoms had resolved. The patient had been exposed to COVID 5 days ago during a family gathering. She reports that several family members are now ill. Her is also coughing. She had a negative test as outpatient yesterday but antigen testing today returned positive. She was vaccinated against COVID but it is not time for her to receive her booster yet. She is complaining of generalized myalgias increased from baseline. She has been having a cough for about a week. She reports that she has been avoiding going out in public and has been wearing a mask. She reports chronic loss of sense of taste and smell. She has had decreased appetite. She denies nausea vomiting abdominal pain. She has had some mild sore throat. She denies postnasal drip. She denies any chest pain. The patient had been placed on nasal cannula oxygen in the ER but had no documented hypoxia. At the time of my evaluation the patient was not on oxygen and was maintaining oxygen saturations between 94 and 97%. 09/16/2021 no overnight events vitals reviewed on 2 L oxygen. She feels little more short of breath today compared to yesterday. She denies any chest pain. He has pain all the time due to her ankylosing spondylitis. Review of Systems Review of Systems: All systems reviewed & are unremarkable except as noted in HPI and below (HPI) Exam Narrative: GENERAL: The patient is well developed, not in acute di
[2021-09-16 17:07] LABS: Glucose Point of Care 214 mg/dl (65-105)
[2021-09-16] MEDS: INSULIN ASPART (*BKC) 100 UNITS/ML SUB-Q (17:43)
[2021-09-16] MEDS: traZODone HCL 50 MG TABLET 150 MG PO (17:44)
[2021-09-16] MEDS: REMDESIVIR 100 MG/NS 250 ML 100 MG/250 ML BAG 250 MG IVPB (21:22)
[2021-09-16] MEDS: diphenhydrAMINE HCl CAP 25 MG CAPSULE PO (21:22)
[2021-09-16] MEDS: ALBUTEROL SULFATE (*SP) AEROSOL 1 PUFF 2 PUFF INHALATION (21:44)
[2021-09-16 21:52] LABS: Glucose Point of Care 181 mg/dl (65-105)
[2021-09-17] VITALS (9 sets, daily range): BP systolic 113–135; BP diastolic 59–76; PULSE 68–88; RESP 14–22; TEMP 36.1–36.9; O2SAT 90–100
[2021-09-17] MEDS: ALBUTEROL SULFATE (*SP) INHALER 2 PUFF INHALATION ×2 (02:49→13:59)
[2021-09-17] MEDS: GABAPENTIN 300 MG CAPSULE PO ×3 (05:17→21:37)
[2021-09-17 07:25] LABS: Glucose Point of Care 251 mg/dl (65-105)
[2021-09-17 08:14] LABS: Basophils Percent Auto 0.3 % (0.2-1.2); Hematocrit 30.5 % (37.0-47.0); Hemoglobin 9.3 g/dL (12.0-15.0); Immature Granulocyte Absolute 0.02 K/mm3 (0.00-0.031); Immature Granulocyte Percent A 0.5 % (0-0.5); Mean Corpuscular HGB Conc 30.5 g/dl (32-36); Mean Corpuscular Hemoglobin 25.7 pg (26-34); Mean Corpuscular Volume 84.3 fl (80-100); Mean Platelet Volume 9.5 fl (7.4-10.4); Monocytes Absolute Auto 0.5 K/mm3 (0.1-0.6); Monocytes Percent Auto 14.7 % (2.6-8.5); Neutrophils Percent Auto 54.5 % (45.5-73.1); Platelet Count Result 292 k/mm3 (150-375); Red Blood Count 3.62 M/mm3 (4.2-5.4); Red Cell Distribution Width 18.5 % (11.5-14.5); White Blood Count 3.7 K/mm3 (4.5-10.0)
[2021-09-17 08:43] LABS: Alanine Aminotransferase 17 U/L (4-35); Albumin Level 3.5 g/dL (3.5-5.1); Alkaline Phosphatase 69 U/L (38-126); Anion Gap 6 mmol/L (8-16); Aspartate Amino Transferase 28 U/L (14-36); Bilirubin,Total 0.2 mg/dL (0.2-1.3); Blood Urea Nitrogen 24 mg/dL (7-17); CRP 2.2 mg/dL (<1.0); Calcium 8.7 mg/dL (8.4-10.2); Carbon Dioxide 29 mmol/L (22-30); Chloride 99 mmol/L (98-107); Estimated CRCL calculation 54 ml/min; Estimated Glomerular Filt Rate > 60; Glucose 141 mg/dL (65-110); Lactate Dehydrogenase 333 U/L (313-618); Magnesium 2.1 mg/dL (1.6-2.3); Potassium 3.6 mmol/L (3.4-5.0); Sodium 134 mmol/L (137-145)
[2021-09-17 08:56] LABS: Prothrombin Time 13.3 Seconds (11.1-14.7)
[2021-09-17] MEDS: METOPROLOL SUCCINATE EXT REL 100 MG TABCR PO (09:17)
[2021-09-17] MEDS: amLODIPine BESYLATE 5 MG TABLET PO (09:17)
[2021-09-17] MEDS: DEXAMETHASONE 2 MG TABLET 6 MG PO (09:17)
[2021-09-17] MEDS: OPTI-GEN TAB 1 TABLET PO (09:18)
[2021-09-17] MEDS: DULoxetine HCL 60 MG CAPSULE.DR 120 MG BY MOUTH (09:18)
[2021-09-17] MEDS: CHOLECALCIFEROL 1,000 UNITS TABLET 2000 UNITS PO (09:18)
[2021-09-17] MEDS: MULTIVITAMINS /C LUTEIN (CENTRUM SILVER) TABLET *BKC 1 TAB PO (09:18)
[2021-09-17] MEDS: metFORMIN HCL XR 500 MG TAB.SR.24H PO (09:18)
[2021-09-17] MEDS: ENOXAPARIN 40 MG/0.4 ML SYRINGE SUB-Q (09:19)
[2021-09-17] MEDS: TIZANIDINE HCL 2 MG TABLET PO (09:19)
[2021-09-17] MEDS: lamoTRIgine 100 MG TABLET PO ×2 (09:19→16:54)
[2021-09-17] MEDS: PANTOPRAZOLE 40 MG TABLET PO (09:19)
[2021-09-17] MEDS: ASPIRIN 81 MG CHEWABLE TABLET PO (09:19)
[2021-09-17] MEDS: INSULIN ASPART (*BKC) 100 UNITS/ML SUB-Q ×2 (09:20→16:54)
[2021-09-17] MEDS: ACETAMINOPHEN 325 MG TABLET 650 MG PO (11:18)
[2021-09-17 11:46] LABS: Glucose Point of Care 175 mg/dl (65-105)
--- NOTE | 2021-09-17 13:31 | PCRCNOTE ---
Past window of treatment time.
--- NOTE | 2021-09-17 14:14 | PM.IMPN ---
Progress Note: A&P Assessment and Plan (1) Pneumonia due to COVID-19 virus: Code(s): U07.1 - COVID-19; J12.82 - Pneumonia due to coronavirus disease 2019 Status: Acute (2) Acute alteration in mental status: Code(s): R41.82 - Altered mental status, unspecified Status: Acute (3) Diabetes mellitus: Qualifiers: Diabetes mellitus type: type 2 Diabetes mellitus senior care insulin use: without equipment operator intermodal yard use Diabetes mellitus complication status: with hyperglycemia Qualified Code(s): E11.65 - Type 2 diabetes mellitus with hyperglycemia Code(s): E11.9 - Type 2 diabetes mellitus without complications Status: Acute (4) Polypharmacy: Code(s): Z79.899 - Other equipment operator intermodal yard (current) drug therapy Status: Acute Additional Plan Altered mental status negative CT head ABG reviewed does have UTI COVID positive as well mild hyponatremia. Confusion suspected to be a polypharmacy related could be related to underlying UTI/COVID Hyponatremia 129 on admission improved to 134 today UTI allergy to cephalosporin will start Levaquin urine culture with Klebsiella sensitive to Levaquin COVID-19 pneumonia on Decadron only no reported desaturation. Remdesivir discontinued however I will restart this back she has ankylosing spondylitis and immunosuppressed with prednisone regularly. Though she is vaccinated x2 she might not be well protected and might get worse. Will re-initiate remdesivir. Chest x-ray today with no acute findings. Remdesivir D 3 today will re-evaluate for the need of remdesivir in the morning will try to taper off oxygen Mild hypoxia on 2 L oxygen Ankylosing spondylitis on chronic steroid therapy Diabetes mellitus type 2 Hypertension Anxiety disorder Polypharmacy Macular degeneration DVT prophylaxis Lovenox Chronic steroid therapy with prednisone 2.5 mg b.i.d. for prednisone while on Decadron Code status full code Subjective Date/time seen: 09/17/21 14:14 Interval history: HPI:75-year-old female with past medical history of anxiety, hypertension, COPD, diabetes and rheumatoid arthritis who presented to the ER via EMS from home due to altered mental status. The patient reports that she started feels if she may have a anxiety tach and went to look for her medications. The patient reports that she has macular degeneration and may have miss read the bottles. She may have taken a medication that was not Ativan. The patient was found by her with a bag of medications requesting Ativan. Her reported that the patient was having difficulty getting her words out. Her decided to call EMS when she was still not acting right having difficulty getting her thoughts out. By the time she arrived in the ER her symptoms had resolved. The patient had been exposed to COVID 5 days ago during a family gathering. She reports that several family members are now ill. Her is also coughing. She had a negative test as outpatient yesterday but antigen testing today returned positive. She was vaccinated against COVID but it is not time for her to receive her booster yet. She is complaining of generalized myalgias increased from baseline. She has been having a cough for about a week. She reports that she has been avoiding going out in public and has been wearing a mask. She reports chronic loss of sense of taste and smell. She has had decreased appetite. She denies nausea vomiting abdominal pain. She has had some mild sore throat. She denies postnasal drip. She denies any chest pain. The patient had been placed on nasal cannula oxygen in the ER but had no documented hypoxia. At the time of my evaluation the patient was not on oxygen and was maintaining oxygen saturations between 94 and 97%. 09/16/2021 no overnight events vitals reviewed on 2 L oxygen. She feels little more short of breath today compared to yesterday. She denies any chest pain. He has pain all the time due to her
[2021-09-17 16:54] LABS: Glucose Point of Care 261 mg/dl (65-105)
[2021-09-17] MEDS: traZODone HCL 50 MG TABLET 150 MG PO (18:22)
[2021-09-17] MEDS: LORazepam (*CRX) 0.5 MG TABLET PO (18:25)
[2021-09-17] MEDS: REMDESIVIR 100 MG/NS 250 ML 100 MG/250 ML BAG 250 MG IVPB (21:37)
[2021-09-17] MEDS: diphenhydrAMINE HCl CAP 25 MG CAPSULE PO (21:37)
[2021-09-17 23:03] LABS: Glucose Point of Care 165 mg/dl (65-105)
--- NOTE | 2021-09-17 23:39 | PCRCNOTE ---
Window of time for administration has passed. See next scheduled administration.
[2021-09-18 03:38] VITALS: BP 120/74; PULSE 74; RESP 18; TEMP 37; O2SAT 91
[2021-09-18 06:00] VITALS: BP 146/65; PULSE 69; RESP 18; TEMP 36.7; O2SAT 97
[2021-09-18] MEDS: GABAPENTIN 300 MG CAPSULE PO ×3 (06:19→21:22)
[2021-09-18 06:58] LABS: Basophils Percent Auto 0.3 % (0.2-1.2); Hematocrit 30.3 % (37.0-47.0); Hemoglobin 9.4 g/dL (12.0-15.0); Immature Granulocyte Absolute 0.02 K/mm3 (0.00-0.031); Immature Granulocyte Percent A 0.5 % (0-0.5); Lymphocytes Absolute Auto 1.13 K/mm3 (0.9-3.2); Lymphocytes Percent Auto 29.8 % (18.3-44.2); Mean Corpuscular Hemoglobin 25.9 pg (26-34); Mean Corpuscular Volume 83.5 fl (80-100); Mean Platelet Volume 9.5 fl (7.4-10.4); Monocytes Absolute Auto 0.6 K/mm3 (0.1-0.6); Neutrophils Absolute Auto 2.1 K/mm3 (1.3-6.7); Neutrophils Percent Auto 54.4 % (45.5-73.1); Platelet Count Result 306 k/mm3 (150-375); Red Blood Count 3.63 M/mm3 (4.2-5.4); Red Cell Distribution Width 18.6 % (11.5-14.5); White Blood Count 3.8 K/mm3 (4.5-10.0)
[2021-09-18 07:15] LABS: Alanine Aminotransferase 15 U/L (4-35); Albumin Level 3.3 g/dL (3.5-5.1); Alkaline Phosphatase 70 U/L (38-126); Anion Gap 5 mmol/L (8-16); Aspartate Amino Transferase 25 U/L (14-36); Bilirubin,Total 0.1 mg/dL (0.2-1.3); Blood Urea Nitrogen 20 mg/dL (7-17); Calcium 8.6 mg/dL (8.4-10.2); Carbon Dioxide 31 mmol/L (22-30); Chloride 100 mmol/L (98-107); Estimated CRCL calculation 61 ml/min; Estimated Glomerular Filt Rate > 60; Glucose 146 mg/dL (65-110); Potassium 3.7 mmol/L (3.4-5.0); Sodium 136 mmol/L (137-145)
[2021-09-18 07:18] LABS: INR 1.1; Prothrombin Time 13.8 Seconds (11.1-14.7)
[2021-09-18 07:57] LABS: Glucose Point of Care 149 mg/dl (65-105)
[2021-09-18] MEDS: DULoxetine HCL 60 MG CAPSULE.DR 120 MG BY MOUTH (09:20)
[2021-09-18] MEDS: MULTIVITAMINS /C LUTEIN (CENTRUM SILVER) TABLET *BKC 1 TAB PO (09:20)
[2021-09-18] MEDS: TIZANIDINE HCL 2 MG TABLET PO (09:20)
[2021-09-18] MEDS: lamoTRIgine 100 MG TABLET PO ×2 (09:20→17:46)
[2021-09-18] MEDS: ASPIRIN 81 MG CHEWABLE TABLET PO (09:20)
[2021-09-18] MEDS: PANTOPRAZOLE 40 MG TABLET PO (09:20)
[2021-09-18] MEDS: metFORMIN HCL XR 500 MG TAB.SR.24H PO (09:20)
[2021-09-18] MEDS: DEXAMETHASONE 2 MG TABLET 6 MG PO (09:21)
[2021-09-18] MEDS: amLODIPine BESYLATE 5 MG TABLET PO (09:21)
[2021-09-18] MEDS: CHOLECALCIFEROL 1,000 UNITS TABLET 2000 UNITS PO (09:21)
[2021-09-18] MEDS: METOPROLOL SUCCINATE EXT REL 100 MG TABCR PO (09:21)
[2021-09-18] MEDS: OPTI-GEN TAB 1 TABLET PO (09:21)
[2021-09-18] MEDS: ENOXAPARIN 40 MG/0.4 ML SYRINGE SUB-Q (09:22)
[2021-09-18] MEDS: ALBUTEROL SULFATE (*SP) INHALER 2 PUFF INHALATION ×3 (10:06→21:25)
[2021-09-18 11:54] LABS: Glucose Point of Care 192 mg/dl (65-105)
[2021-09-18] MEDS: ACETAMINOPHEN 325 MG TABLET 650 MG PO (13:22)
[2021-09-18] MEDS: FLUTICASONE PROPIONATE 0.05% NA SPR 16 GM BTL (*BKC) 1 SPRAY NASAL ×2 (13:22→21:22)
[2021-09-18 15:51] VITALS: BP 133/6; PULSE 64; RESP 18; TEMP 36.5; O2SAT 93
[2021-09-18 16:05] LABS: Glucose Point of Care 293 mg/dl (65-105)
[2021-09-18] MEDS: INSULIN ASPART (*BKC) 100 UNITS/ML SUB-Q (17:45)
[2021-09-18] MEDS: traZODone HCL 50 MG TABLET 150 MG PO (17:46)
--- NOTE | 2021-09-18 18:00 | PM.IMPN ---
Progress Note: A&P Assessment and Plan (1) Pneumonia due to COVID-19 virus: Code(s): U07.1 - COVID-19; J12.82 - Pneumonia due to coronavirus disease 2019 Status: Acute (2) Acute alteration in mental status: Code(s): R41.82 - Altered mental status, unspecified Status: Acute (3) Diabetes mellitus: Qualifiers: Diabetes mellitus type: type 2 Diabetes mellitus alf insulin use: without parts counterman use Diabetes mellitus complication status: with hyperglycemia Qualified Code(s): E11.65 - Type 2 diabetes mellitus with hyperglycemia Code(s): E11.9 - Type 2 diabetes mellitus without complications Status: Acute (4) Polypharmacy: Code(s): Z79.899 - Other parts counterman (current) drug therapy Status: Acute Additional Plan # Altered mental status negative CT head ABG reviewed does have UTI COVID positive as well mild hyponatremia. Confusion suspected to be a polypharmacy related could be related to underlying UTI/COVID # Hyponatremia 129 on admission improved to 134 today # UTI allergy to cephalosporin will start Levaquin urine culture with Klebsiella sensitive to Levaquin # COVID-19 pneumonia on Decadron only no reported desaturation. Remdesivir discontinued however I will restart this back she has ankylosing spondylitis and immunosuppressed with prednisone regularly. Though she is vaccinated x2 she might not be well protected and might get worse. Will re-initiate remdesivir. Chest x-ray today with no acute findings. Remdesivir day 4 today will re-evaluate for the need of remdesivir in the morning will try to taper off oxygen # Mild hypoxia on 2 L oxygen now tapered off check with ambulation # Ankylosing spondylitis on chronic steroid therapy # Diabetes mellitus type 2 # Hypertension # Anxiety disorder # Polypharmacy # Macular degeneration # DVT prophylaxis Lovenox # Chronic steroid therapy with prednisone 2.5 mg b.i.d. for prednisone while on Decadron # Code status full code Subjective Date/time seen: 09/18/21 18:00 Interval history: HPI:75-year-old female with past medical history of anxiety, hypertension, COPD, diabetes and rheumatoid arthritis who presented to the ER via EMS from home due to altered mental status. The patient reports that she started feels if she may have a anxiety tach and went to look for her medications. The patient reports that she has macular degeneration and may have miss read the bottles. She may have taken a medication that was not Ativan. The patient was found by her with a bag of medications requesting Ativan. Her reported that the patient was having difficulty getting her words out. Her decided to call EMS when she was still not acting right having difficulty getting her thoughts out. By the time she arrived in the ER her symptoms had resolved. The patient had been exposed to COVID 5 days ago during a family gathering. She reports that several family members are now ill. Her is also coughing. She had a negative test as outpatient yesterday but antigen testing today returned positive. She was vaccinated against COVID but it is not time for her to receive her booster yet. She is complaining of generalized myalgias increased from baseline. She has been having a cough for about a week. She reports that she has been avoiding going out in public and has been wearing a mask. She reports chronic loss of sense of taste and smell. She has had decreased appetite. She denies nausea vomiting abdominal pain. She has had some mild sore throat. She denies postnasal drip. She denies any chest pain. The patient had been placed on nasal cannula oxygen in the ER but had no documented hypoxia. At the time of my evaluation the patient was not on oxygen and was maintaining oxygen saturations between 94 and 97%. 09/16/2021 no overnight events vitals reviewed on 2 L oxygen. She feels little more short of breath today compared to yester
[2021-09-18 20:00] VITALS: BP 140/80; PULSE 68; RESP 18; TEMP 36.6; O2SAT 94
[2021-09-18 20:44] LABS: Glucose Point of Care 254 mg/dl (65-105)
[2021-09-18] MEDS: diphenhydrAMINE HCl CAP 25 MG CAPSULE PO (21:22)
[2021-09-18 21:29] VITALS: O2SAT 95
[2021-09-18] MEDS: REMDESIVIR 100 MG/NS 250 ML 100 MG/250 ML BAG 250 MG IVPB (21:59)
[2021-09-19] VITALS (8 sets, daily range): BP systolic 135–158; BP diastolic 56–77; PULSE 64–80; RESP 18–20; TEMP 36.4–36.9; O2SAT 90–94
[2021-09-19] MEDS: ALBUTEROL SULFATE (*SP) INHALER 2 PUFF INHALATION ×4 (02:15→22:10)
[2021-09-19] MEDS: GABAPENTIN 300 MG CAPSULE PO ×3 (05:15→21:09)
[2021-09-19 07:22] LABS: Alanine Aminotransferase 18 U/L (4-35); Albumin Level 3.1 g/dL (3.5-5.1); Alkaline Phosphatase 61 U/L (38-126); Anion Gap 5 mmol/L (8-16); Aspartate Amino Transferase 25 U/L (14-36); Bilirubin,Total 0.2 mg/dL (0.2-1.3); Blood Urea Nitrogen 17 mg/dL (7-17); CRP 1.1 mg/dL (<1.0); Calcium 8.3 mg/dL (8.4-10.2); Carbon Dioxide 30 mmol/L (22-30); Chloride 100 mmol/L (98-107); Estimated CRCL calculation 70 ml/min; Estimated Glomerular Filt Rate > 60; Glucose 155 mg/dL (65-110); Potassium 3.4 mmol/L (3.4-5.0); Sodium 135 mmol/L (137-145)
[2021-09-19 07:28] LABS: Hematocrit 29.2 % (37.0-47.0); Hemoglobin 8.9 g/dL (12.0-15.0); Immature Granulocyte Absolute 0.01 K/mm3 (0.00-0.031); Immature Granulocyte Percent A 0.3 % (0-0.5); Lymphocytes Absolute Auto 1.17 K/mm3 (0.9-3.2); Lymphocytes Percent Auto 30.3 % (18.3-44.2); Mean Corpuscular HGB Conc 30.5 g/dl (32-36); Mean Corpuscular Hemoglobin 25.5 pg (26-34); Mean Corpuscular Volume 83.7 fl (80-100); Mean Platelet Volume 9.7 fl (7.4-10.4); Monocytes Absolute Auto 0.6 K/mm3 (0.1-0.6); Monocytes Percent Auto 14.5 % (2.6-8.5); Neutrophils Absolute Auto 2.1 K/mm3 (1.3-6.7); Neutrophils Percent Auto 54.9 % (45.5-73.1); Platelet Count Result 294 k/mm3 (150-375); Red Blood Count 3.49 M/mm3 (4.2-5.4); Red Cell Distribution Width 18.3 % (11.5-14.5); White Blood Count 3.9 K/mm3 (4.5-10.0)
[2021-09-19 07:47] LABS: INR 1.1; Prothrombin Time 13.6 Seconds (11.1-14.7)
[2021-09-19] MEDS: DULoxetine HCL 60 MG CAPSULE.DR 120 MG BY MOUTH (07:59)
[2021-09-19] MEDS: METOPROLOL SUCCINATE EXT REL 100 MG TABCR PO (07:59)
[2021-09-19] MEDS: DEXAMETHASONE 2 MG TABLET 6 MG PO (07:59)
[2021-09-19] MEDS: PANTOPRAZOLE 40 MG TABLET PO (08:00)
[2021-09-19] MEDS: ASPIRIN 81 MG CHEWABLE TABLET PO (08:00)
[2021-09-19] MEDS: CHOLECALCIFEROL 1,000 UNITS TABLET 2000 UNITS PO (08:00)
[2021-09-19] MEDS: ENOXAPARIN 40 MG/0.4 ML SYRINGE SUB-Q (08:00)
[2021-09-19] MEDS: MULTIVITAMINS /C LUTEIN (CENTRUM SILVER) TABLET *BKC 1 TAB PO (08:00)
[2021-09-19] MEDS: amLODIPine BESYLATE 5 MG TABLET PO (08:00)
[2021-09-19] MEDS: metFORMIN HCL XR 500 MG TAB.SR.24H PO (08:00)
[2021-09-19] MEDS: OPTI-GEN TAB 1 TABLET PO (08:00)
[2021-09-19] MEDS: TIZANIDINE HCL 2 MG TABLET PO (08:00)
[2021-09-19] MEDS: lamoTRIgine 100 MG TABLET PO ×2 (08:00→17:21)
[2021-09-19] MEDS: FLUTICASONE PROPIONATE 0.05% NA SPR 16 GM BTL (*BKC) 1 SPRAY NASAL ×2 (08:02→21:12)
[2021-09-19 10:21] LABS: Glucose Point of Care 146 mg/dl (65-105)
[2021-09-19 11:36] LABS: Glucose Point of Care 244 mg/dl (65-105)
[2021-09-19] MEDS: INSULIN ASPART (*BKC) 100 UNITS/ML SUB-Q ×2 (11:59→17:20)
[2021-09-19] MEDS: ACETAMINOPHEN 325 MG TABLET 650 MG PO (12:04)
[2021-09-19] MEDS: POTASSIUM CHLORIDE 20 MEQ PACKET (FOR LIQUID) 40 MEQ PO (12:04)
[2021-09-19] MEDS: DOCUSATE SODIUM 100 MG CAPSULE PO ×2 (12:29→21:10)
[2021-09-19] MEDS: traMADol HCL (*CRX) 50 MG TABLET PO (13:58)
[2021-09-19 16:30] LABS: Glucose Point of Care 250 mg/dl (65-105)
--- NOTE | 2021-09-19 17:03 | PM.IMPN ---
Progress Note: A&P Assessment and Plan (1) Pneumonia due to COVID-19 virus: Code(s): U07.1 - COVID-19; J12.82 - Pneumonia due to coronavirus disease 2019 Status: Acute (2) Acute alteration in mental status: Code(s): R41.82 - Altered mental status, unspecified Status: Acute (3) Diabetes mellitus: Qualifiers: Diabetes mellitus type: type 2 Diabetes mellitus halfway insulin use: without intermediate designer use Diabetes mellitus complication status: with hyperglycemia Qualified Code(s): E11.65 - Type 2 diabetes mellitus with hyperglycemia Code(s): E11.9 - Type 2 diabetes mellitus without complications Status: Acute (4) Polypharmacy: Code(s): Z79.899 - Other intermediate designer (current) drug therapy Status: Acute Additional Plan # Altered mental status negative CT head ABG reviewed does have UTI COVID positive as well mild hyponatremia. Confusion suspected to be a polypharmacy related could be related to underlying UTI/COVID # Hyponatremia 129 on admission improved to 134 today # UTI allergy to cephalosporin will start Levaquin urine culture with Klebsiella sensitive to Levaquin # COVID-19 pneumonia on Decadron only no reported desaturation. Remdesivir discontinued however I will restart this back she has ankylosing spondylitis and immunosuppressed with prednisone regularly. Though she is vaccinated x2 she might not be well protected and might get worse. Will re-initiate remdesivir. Chest x-ray today with no acute findings. Remdesivir day 4 today will re-evaluate for the need of remdesivir in the morning will try to taper off oxygen # Mild hypoxia on 2 L oxygen now tapered off check with ambulation # Ankylosing spondylitis on chronic steroid therapy # Diabetes mellitus type 2 # Hypertension # Anxiety disorder # Polypharmacy # Macular degeneration # DVT prophylaxis Lovenox # Chronic steroid therapy with prednisone 2.5 mg b.i.d. for prednisone while on Decadron # Code status full code 09/19/2021 interval history: patient states feels better at rest but with exertion feels dizzy and shortness of breath will start the patient on dexamethasone 10 mg q.day, will continue to monitor and further recommendation to follow Subjective Date/time seen: 09/19/21 17:03 Interval history: HPI:75-year-old female with past medical history of anxiety, hypertension, COPD, diabetes and rheumatoid arthritis who presented to the ER via EMS from home due to altered mental status. The patient reports that she started feels if she may have a anxiety tach and went to look for her medications. The patient reports that she has macular degeneration and may have miss read the bottles. She may have taken a medication that was not Ativan. The patient was found by her with a bag of medications requesting Ativan. Her reported that the patient was having difficulty getting her words out. Her decided to call EMS when she was still not acting right having difficulty getting her thoughts out. By the time she arrived in the ER her symptoms had resolved. The patient had been exposed to COVID 5 days ago during a family gathering. She reports that several family members are now ill. Her is also coughing. She had a negative test as outpatient yesterday but antigen testing today returned positive. She was vaccinated against COVID but it is not time for her to receive her booster yet. She is complaining of generalized myalgias increased from baseline. She has been having a cough for about a week. She reports that she has been avoiding going out in public and has been wearing a mask. She reports chronic loss of sense of taste and smell. She has had decreased appetite. She denies nausea vomiting abdominal pain. She has had some mild sore throat. She denies postnasal drip. She denies any chest pain. The patient had been placed on nasal cannula oxygen in the ER but had no documented hypoxia. At the [facility]
[2021-09-19] MEDS: LORazepam (*CRX) 0.5 MG TABLET PO (17:24)
[2021-09-19] MEDS: REMDESIVIR 100 MG/NS 250 ML 100 MG/250 ML BAG 250 MG IVPB (21:08)
[2021-09-19] MEDS: diphenhydrAMINE HCl CAP 25 MG CAPSULE PO (21:09)
[2021-09-19] MEDS: traZODone HCL 50 MG TABLET 150 MG PO (21:10)
[2021-09-19 21:34] LABS: Glucose Point of Care 306 mg/dl (65-105)
[2021-09-20] VITALS (8 sets, daily range): BP systolic 132–177; BP diastolic 53–75; PULSE 63–73; RESP 12–20; TEMP 36.3–36.6; O2SAT 93–97
[2021-09-20] MEDS: ALBUTEROL SULFATE (*SP) INHALER 2 PUFF INHALATION ×4 (04:20→22:05)
[2021-09-20] MEDS: GABAPENTIN 300 MG CAPSULE PO ×3 (05:24→21:58)
[2021-09-20 07:56] LABS: Alanine Aminotransferase 20 U/L (4-35); Estimated CRCL calculation 70 ml/min; Estimated Glomerular Filt Rate > 60
[2021-09-20 07:57] LABS: INR 1.1
[2021-09-20 08:12] LABS: Glucose Point of Care 213 mg/dl (65-105)
[2021-09-20] MEDS: FLUTICASONE PROPIONATE 0.05% NA SPR 16 GM BTL (*BKC) 1 SPRAY NASAL ×2 (09:04→21:57)
[2021-09-20] MEDS: INSULIN ASPART (*BKC) 100 UNITS/ML SUB-Q ×2 (10:30→17:58)
[2021-09-20] MEDS: MULTIVITAMINS /C LUTEIN (CENTRUM SILVER) TABLET *BKC 1 TAB PO (10:34)
[2021-09-20] MEDS: METOPROLOL SUCCINATE EXT REL 100 MG TABCR PO (10:34)
[2021-09-20] MEDS: ENOXAPARIN 40 MG/0.4 ML SYRINGE SUB-Q ×2 (10:34→21:57)
[2021-09-20] MEDS: OPTI-GEN TAB 1 TABLET PO (10:34)
[2021-09-20] MEDS: CHOLECALCIFEROL 1,000 UNITS TABLET 2000 UNITS PO (10:34)
[2021-09-20] MEDS: amLODIPine BESYLATE 5 MG TABLET PO (10:34)
[2021-09-20] MEDS: DEXAMETHASONE 2 MG TABLET 6 MG PO (10:35)
[2021-09-20] MEDS: lamoTRIgine 100 MG TABLET PO ×2 (10:35→16:07)
[2021-09-20] MEDS: metFORMIN HCL XR 500 MG TAB.SR.24H PO (10:35)
[2021-09-20] MEDS: DULoxetine HCL 60 MG CAPSULE.DR 120 MG BY MOUTH (10:36)
[2021-09-20] MEDS: DOCUSATE SODIUM 100 MG CAPSULE PO ×2 (10:36→21:58)
[2021-09-20] MEDS: TIZANIDINE HCL 2 MG TABLET PO (10:36)
[2021-09-20] MEDS: PANTOPRAZOLE 40 MG TABLET PO (10:36)
[2021-09-20] MEDS: ASPIRIN 81 MG CHEWABLE TABLET PO (10:36)
[2021-09-20 11:55] LABS: Glucose Point of Care 193 mg/dl (65-105)
--- NOTE | 2021-09-20 14:04 | PM.IMPN ---
Progress Note: A&P Assessment and Plan (1) Pneumonia due to COVID-19 virus: Code(s): U07.1 - COVID-19; J12.82 - Pneumonia due to coronavirus disease 2019 Status: Acute (2) Acute alteration in mental status: Code(s): R41.82 - Altered mental status, unspecified Status: Acute (3) Diabetes mellitus: Qualifiers: Diabetes mellitus type: type 2 Diabetes mellitus senior living insulin use: without senior living use Diabetes mellitus complication status: with hyperglycemia Qualified Code(s): E11.65 - Type 2 diabetes mellitus with hyperglycemia Code(s): E11.9 - Type 2 diabetes mellitus without complications Status: Acute (4) Polypharmacy: Code(s): Z79.899 - Other intermediate school teacher (current) drug therapy Status: Acute Additional Plan # Altered mental status negative CT head ABG reviewed does have UTI COVID positive as well mild hyponatremia. Confusion suspected to be a polypharmacy related could be related to underlying UTI/COVID # Hyponatremia 129 on admission improved to 134 today # UTI allergy to cephalosporin will start Levaquin urine culture with Klebsiella sensitive to Levaquin # COVID-19 pneumonia on Decadron only no reported desaturation. Remdesivir discontinued however I will restart this back she has ankylosing spondylitis and immunosuppressed with prednisone regularly. Though she is vaccinated x2 she might not be well protected and might get worse. Will re-initiate remdesivir. Chest x-ray today with no acute findings. Remdesivir day 4 today will re-evaluate for the need of remdesivir in the morning will try to taper off oxygen # Mild hypoxia on 2 L oxygen now tapered off check with ambulation # Ankylosing spondylitis on chronic steroid therapy # Diabetes mellitus type 2 # Hypertension # Anxiety disorder # Polypharmacy # Macular degeneration # DVT prophylaxis Lovenox # Chronic steroid therapy with prednisone 2.5 mg b.i.d. for prednisone while on Decadron # Code status full code 09/19/2021 interval history: patient states feels better at rest but with exertion feels dizzy and shortness of breath will start the patient on dexamethasone 10 mg q.day, will continue to monitor and further recommendation to follow. 09/20/2021 interval history: on patient states feels better at rest but with exertion feels dizzy and shortness of breath increased the patient on 09/19/21 dexamethasone 10 mg q.day 2, Also added vitamin-C, D and zinc will continue to monitor and further recommendation to follow Subjective Date/time seen: 09/20/21 14:04 Interval history: HPI:75-year-old female with past medical history of anxiety, hypertension, COPD, diabetes and rheumatoid arthritis who presented to the ER via EMS from home due to altered mental status. The patient reports that she started feels if she may have a anxiety tach and went to look for her medications. The patient reports that she has macular degeneration and may have miss read the bottles. She may have taken a medication that was not Ativan. The patient was found by her with a bag of medications requesting Ativan. Her reported that the patient was having difficulty getting her words out. Her decided to call EMS when she was still not acting right having difficulty getting her thoughts out. By the time she arrived in the ER her symptoms had resolved. The patient had been exposed to COVID 5 days ago during a family gathering. She reports that several family members are now ill. Her is also coughing. She had a negative test as outpatient yesterday but antigen testing today returned positive. She was vaccinated against COVID but it is not time for her to receive her booster yet. She is complaining of generalized myalgias increased from baseline. She has been having a cough for about a week. She reports that she has been avoiding going out in public and has been wearing a mask. She reports chronic loss of sense of t
[2021-09-20] MEDS: traMADol HCL (*CRX) 50 MG TABLET PO (16:02)
[2021-09-20] MEDS: ZINC SULFATE 220 MG CAPSULE PO (16:05)
[2021-09-20] MEDS: ASCORBIC ACID 500 MG TABLET PO (16:06)
[2021-09-20 16:53] LABS: Glucose Point of Care 262 mg/dl (65-105)
[2021-09-20] MEDS: diphenhydrAMINE HCl CAP 25 MG CAPSULE PO (21:58)
[2021-09-20] MEDS: traZODone HCL 50 MG TABLET 150 MG PO (21:58)
[2021-09-21 01:43] LABS: Glucose Point of Care 221 mg/dl (65-105)
[2021-09-21] MEDS: ALBUTEROL SULFATE (*SP) INHALER 2 PUFF INHALATION ×4 (03:26→14:46)
[2021-09-21 06:00] VITALS: BP 144/71; PULSE 66; RESP 20; TEMP 36.4; O2SAT 94
[2021-09-21] MEDS: GABAPENTIN 300 MG CAPSULE PO ×3 (06:58→21:05)
[2021-09-21] MEDS: traMADol HCL (*CRX) 50 MG TABLET PO (06:58)
[2021-09-21 08:00] VITALS: BP 149/76; PULSE 69; RESP 18; TEMP 36.3; O2SAT 94
[2021-09-21 08:17] LABS: Glucose Point of Care 186 mg/dl (65-105)
[2021-09-21] MEDS: metFORMIN HCL XR 500 MG TAB.SR.24H PO (10:23)
[2021-09-21] MEDS: TIZANIDINE HCL 2 MG TABLET PO (10:23)
[2021-09-21] MEDS: amLODIPine BESYLATE 5 MG TABLET PO (10:24)
[2021-09-21] MEDS: DOCUSATE SODIUM 100 MG CAPSULE PO ×2 (10:24→21:06)
[2021-09-21] MEDS: OPTI-GEN TAB 1 TABLET PO (10:24)
[2021-09-21] MEDS: DULoxetine HCL 60 MG CAPSULE.DR 120 MG BY MOUTH (10:24)
[2021-09-21] MEDS: PANTOPRAZOLE 40 MG TABLET PO (10:24)
[2021-09-21] MEDS: ASPIRIN 81 MG CHEWABLE TABLET PO (10:24)
[2021-09-21] MEDS: ASCORBIC ACID 500 MG TABLET PO (10:26)
[2021-09-21] MEDS: CHOLECALCIFEROL 1,000 UNITS TABLET 2000 UNITS PO (10:26)
[2021-09-21] MEDS: ENOXAPARIN 40 MG/0.4 ML SYRINGE SUB-Q ×2 (11:09→21:05)
[2021-09-21] MEDS: FLUTICASONE PROPIONATE 0.05% NA SPR 16 GM BTL (*BKC) 1 SPRAY NASAL ×2 (11:10→21:14)
[2021-09-21 11:11] VITALS: PULSE 69
[2021-09-21] MEDS: ZINC SULFATE 220 MG CAPSULE PO (11:11)
[2021-09-21] MEDS: lamoTRIgine 100 MG TABLET PO ×2 (11:11→18:25)
[2021-09-21] MEDS: METOPROLOL SUCCINATE EXT REL 100 MG TABCR PO (11:11)
[2021-09-21] MEDS: MULTIVITAMINS /C LUTEIN (CENTRUM SILVER) TABLET *BKC 1 TAB PO (11:11)
[2021-09-21 11:41] LABS: Glucose Point of Care 205 mg/dl (65-105)
[2021-09-21 14:47] VITALS: O2SAT 95
[2021-09-21 15:30] VITALS: BP 148/60; PULSE 66; RESP 20; TEMP 36.9; O2SAT 97
--- NOTE | 2021-09-21 17:05 | PM.IMPN ---
Progress Note: A&P Assessment and Plan (1) Pneumonia due to COVID-19 virus: Code(s): U07.1 - COVID-19; J12.82 - Pneumonia due to coronavirus disease 2019 Status: Acute (2) Acute alteration in mental status: Code(s): R41.82 - Altered mental status, unspecified Status: Acute (3) Diabetes mellitus: Qualifiers: Diabetes mellitus type: type 2 Diabetes mellitus usp insulin use: without terminal computer operator use Diabetes mellitus complication status: with hyperglycemia Qualified Code(s): E11.65 - Type 2 diabetes mellitus with hyperglycemia Code(s): E11.9 - Type 2 diabetes mellitus without complications Status: Acute (4) Polypharmacy: Code(s): Z79.899 - Other terminal computer operator (current) drug therapy Status: Acute Additional Plan # Altered mental status negative CT head ABG reviewed does have UTI COVID positive as well mild hyponatremia. Confusion suspected to be a polypharmacy related could be related to underlying UTI/COVID # Hyponatremia 129 on admission improved to 134 today # UTI allergy to cephalosporin will start Levaquin urine culture with Klebsiella sensitive to Levaquin # COVID-19 pneumonia on Decadron only no reported desaturation. Remdesivir discontinued however I will restart this back she has ankylosing spondylitis and immunosuppressed with prednisone regularly. Though she is vaccinated x2 she might not be well protected and might get worse. Will re-initiate remdesivir. Chest x-ray today with no acute findings. Remdesivir day 4 today will re-evaluate for the need of remdesivir in the morning will try to taper off oxygen # Mild hypoxia on 2 L oxygen now tapered off check with ambulation # Ankylosing spondylitis on chronic steroid therapy # Diabetes mellitus type 2 # Hypertension # Anxiety disorder # Polypharmacy # Macular degeneration # DVT prophylaxis Lovenox # Chronic steroid therapy with prednisone 2.5 mg b.i.d. for prednisone while on Decadron # Code status full code 09/19/2021 interval history: patient states feels better at rest but with exertion feels dizzy and shortness of breath will start the patient on dexamethasone 10 mg q.day, will continue to monitor and further recommendation to follow. 09/20/2021 interval history: on patient states feels better at rest but with exertion feels dizzy and shortness of breath increased the patient on 09/19/21 dexamethasone 10 mg q.day 2, Also added vitamin-C, D and zinc will continue to monitor and further recommendation to follow 09/21/2021 interval history: on patient states feels better at rest but with exertion feels dizzy and shortness of breath increased the patient on 09/19/21 dexamethasone 10 mg q.day 11/23, Also added vitamin-C, D and zinc will continue to monitor and further recommendation to follow Subjective Date/time seen: 09/21/21 17:05 Interval history: HPI:75-year-old female with past medical history of anxiety, hypertension, COPD, diabetes and rheumatoid arthritis who presented to the ER via EMS from home due to altered mental status. The patient reports that she started feels if she may have a anxiety tach and went to look for her medications. The patient reports that she has macular degeneration and may have miss read the bottles. She may have taken a medication that was not Ativan. The patient was found by her with a bag of medications requesting Ativan. Her reported that the patient was having difficulty getting her words out. Her decided to call EMS when she was still not acting right having difficulty getting her thoughts out. By the time she arrived in the ER her symptoms had resolved. The patient had been exposed to COVID 5 days ago during a family gathering. She reports that several family members are now ill. Her is also coughing. She had a negative test as outpatient yesterday but antigen testing today returned positive. She was vaccinated against COVID but it is
[2021-09-21 17:12] LABS: Glucose Point of Care 325 mg/dl (65-105)
[2021-09-21] MEDS: INSULIN ASPART (*BKC) 100 UNITS/ML SUB-Q (18:24)
[2021-09-21] MEDS: diphenhydrAMINE HCl CAP 25 MG CAPSULE PO (21:05)
[2021-09-21] MEDS: traZODone HCL 50 MG TABLET 150 MG PO (21:06)
[2021-09-21] MEDS: REMDESIVIR 100 MG/NS 250 ML 100 MG/250 ML BAG 250 MG IVPB (21:08)
[2021-09-21 21:45] LABS: Glucose Point of Care 232 mg/dl (65-105)
[2021-09-21 22:00] VITALS: BP 111/54; PULSE 119; RESP 16; TEMP 37.3; O2SAT 99
--- NOTE | 2021-09-21 23:33 | PCRCNOTE ---
Inhaler scheduled for 09/21/21 at 20:00 not administered. RT not available during administration window due to priorities in Emergency Department.
[2021-09-22] VITALS (8 sets, daily range): BP systolic 142–162; BP diastolic 52–72; PULSE 62–72; RESP 16; TEMP 36.7–37.2; O2SAT 93–98
[2021-09-22] MEDS: ALBUTEROL SULFATE (*SP) INHALER 2 PUFF INHALATION ×2 (02:46→09:17)
[2021-09-22] MEDS: GABAPENTIN 300 MG CAPSULE PO (05:36)
[2021-09-22 07:34] LABS: INR 1.1; Prothrombin Time 13.8 Seconds (11.1-14.7)
[2021-09-22 07:37] LABS: Alanine Aminotransferase 21 U/L (4-35); Estimated CRCL calculation 61 ml/min; Estimated Glomerular Filt Rate > 60
[2021-09-22 08:18] LABS: Glucose Point of Care 153 mg/dl (65-105)
[2021-09-22] MEDS: lamoTRIgine 100 MG TABLET PO (09:20)
[2021-09-22] MEDS: OPTI-GEN TAB 1 TABLET PO (09:20)
[2021-09-22] MEDS: DOCUSATE SODIUM 100 MG CAPSULE PO (09:20)
[2021-09-22] MEDS: metFORMIN HCL XR 500 MG TAB.SR.24H PO (09:20)
[2021-09-22] MEDS: PANTOPRAZOLE 40 MG TABLET PO (09:20)
[2021-09-22] MEDS: ENOXAPARIN 40 MG/0.4 ML SYRINGE SUB-Q (09:21)
[2021-09-22] MEDS: ASPIRIN 81 MG CHEWABLE TABLET PO (09:21)
[2021-09-22] MEDS: ASCORBIC ACID 500 MG TABLET PO (09:21)
[2021-09-22] MEDS: amLODIPine BESYLATE 5 MG TABLET PO (09:21)
[2021-09-22] MEDS: ZINC SULFATE 220 MG CAPSULE PO (09:21)
[2021-09-22] MEDS: TIZANIDINE HCL 2 MG TABLET PO (09:21)
[2021-09-22] MEDS: CHOLECALCIFEROL 1,000 UNITS TABLET 2000 UNITS PO (09:21)
[2021-09-22] MEDS: METOPROLOL SUCCINATE EXT REL 100 MG TABCR PO (09:22)
[2021-09-22] MEDS: DULoxetine HCL 60 MG CAPSULE.DR 120 MG BY MOUTH (09:22)
[2021-09-22] MEDS: FLUTICASONE PROPIONATE 0.05% NA SPR 16 GM BTL (*BKC) 1 SPRAY NASAL (09:30)
--- NOTE | 2021-09-22 10:27 | PCNWS ---
Weekly nutritional screen. Patient is tolerating current diet with adequate intake. No weight loss reported. No nutritional needs at this time.
--- NOTE | 2021-09-22 11:20 | PM.DS ---
DS: Admitting Diagnosis Discharge Date 09/22/2021 Admitting Diagnosis Confused DS: Discharge Diagnosis Discharge Diagnosis (1) Pneumonia due to COVID-19 virus: Code(s): U07.1 - COVID-19; J12.82 - Pneumonia due to coronavirus disease 2019 Status: Acute (2) Acute alteration in mental status: Code(s): R41.82 - Altered mental status, unspecified Status: Acute (3) Diabetes mellitus: Qualifiers: Diabetes mellitus type: type 2 Diabetes mellitus shelter insulin use: without watcher automat long goods use Diabetes mellitus complication status: with hyperglycemia Qualified Code(s): E11.65 - Type 2 diabetes mellitus with hyperglycemia Code(s): E11.9 - Type 2 diabetes mellitus without complications Status: Acute (4) Polypharmacy: Code(s): Z79.899 - Other watcher automat long goods (current) drug therapy Status: Acute DS: Summary Hospital Course Reason for hospitalization: Chief Complaint: Confused Narrative: 75-year-old female with past medical history of anxiety, hypertension, COPD, diabetes and rheumatoid arthritis who presented to the ER via EMS from home due to altered mental status. The patient reports that she started feels if she may have a anxiety tach and went to look for her medications. The patient reports that she has macular degeneration and may have miss read the bottles. She may have taken a medication that was not Ativan. The patient was found by her with a bag of medications requesting Ativan. Her reported that the patient was having difficulty getting her words out. Her decided to call EMS when she was still not acting right having difficulty getting her thoughts out. By the time she arrived in the ER her symptoms had resolved. The patient had been exposed to COVID 5 days ago during a family gathering. She reports that several family members are now ill. Her is also coughing. She had a negative test as outpatient yesterday but antigen testing today returned positive. She was vaccinated against COVID but it is not time for her to receive her booster yet. She is complaining of generalized myalgias increased from baseline. She has been having a cough for about a week. She reports that she has been avoiding going out in public and has been wearing a mask. She reports chronic loss of sense of taste and smell. She has had decreased appetite. She denies nausea vomiting abdominal pain. She has had some mild sore throat. She denies postnasal drip. She denies any chest pain. The patient had been placed on nasal cannula oxygen in the ER but had no documented hypoxia. At the time of my evaluation the patient was not on oxygen and was maintaining oxygen saturations between 94 and 97%. Hospital Course: # Altered mental status negative CT head ABG reviewed does have UTI COVID positive as well mild hyponatremia. Confusion suspected to be a polypharmacy related could be related to underlying UTI/COVID # Hyponatremia 129 on admission improved to 134 today # UTI allergy to cephalosporin will start Levaquin urine culture with Klebsiella sensitive to Levaquin # COVID-19 pneumonia on Decadron only no reported desaturation. Remdesivir discontinued however I will restart this back she has ankylosing spondylitis and immunosuppressed with prednisone regularly. Though she is vaccinated x2 she might not be well protected and might get worse. Will re-initiate remdesivir. Chest x-ray today with no acute findings. Remdesivir day 4 today will re-evaluate for the need of remdesivir in the morning will try to taper off oxygen # Mild hypoxia on 2 L oxygen now tapered off check with ambulation # Ankylosing spondylitis on chronic steroid therapy # Diabetes mellitus type 2 # Hypertension # Anxiety disorder # Polypharmacy # Macular degeneration # DVT prophylaxis Lovenox # Chronic steroid therapy with prednisone 2.5 mg b.i.d. for prednisone while on Decadron # Code status full code 09/19/2021 inter
[2021-09-22] MEDS: INSULIN ASPART (*BKC) 100 UNITS/ML SUB-Q (12:40)
[2021-09-22] MEDS: MULTIVITAMINS /C LUTEIN (CENTRUM SILVER) TABLET *BKC 1 TAB PO (12:41)
[2021-09-22 12:51] LABS: Glucose Point of Care 223 mg/dl (65-105)
--- NOTE | 2021-09-22 14:36 | PCRCNOTE ---
HOME O2 EVAL DONE, NO HOME O2 NEEDED AT THIS TIME.
== END 2021-09-22 14:30 | disposition home health service (06) | DRG 177 ==
LOC: ANHED 18:07 → ANH3MEDSUR 09-18 10:22
PROVIDERS: Family Medicine; Admitting Provider Student in an Organized Health Care Education/Training Program; Emergency Provider Emergency Medicine; PCP Family Medicine; Visit Provider Internal Medicine
DX: U07.1 COVID-19 (principal); J12.82 Pneumonia due to coronavirus disease 2019; N39.0 Urinary tract infection, site not specified; E87.1 Hypo-osmolality and hyponatremia; B96.1 Klebsiella pneumoniae [K. pneumoniae] as the cause of diseases classified elsewhere; R41.82 Altered mental status, unspecified; E11.65 Type 2 diabetes mellitus with hyperglycemia; H35.30 Unspecified macular degeneration; M45.9 Ankylosing spondylitis of unspecified sites in spine; R09.02 Hypoxemia; J43.9 Emphysema, unspecified; I10 Essential (primary) hypertension; E78.2 Mixed hyperlipidemia; G47.33 Obstructive sleep apnea (adult) (pediatric); M06.9 Rheumatoid arthritis, unspecified; F41.9 Anxiety disorder, unspecified; Z79.52 Long term (current) use of systemic steroids; Z79.899 Other long term (current) drug therapy; Z87.891 Personal history of nicotine dependence; Z88.1 Allergy status to other antibiotic agents; Z98.42 Cataract extraction status, left eye; Z98.41 Cataract extraction status, right eye; Z96.1 Presence of intraocular lens
CPT/HCPCS: 36415; 36600; 51701; 70450; 71045; 80053; 80307; 81001; 82565; 82728; 82805; 82948; 83615; 83735; 84460; 85025; 85610; 86140; 87040; 87077; 87086; 87088; 87186; 87426; 93005; 94618; 94640; 96374; 96375; 97110; 97161; 97165; 97535; 99291; A9270; C9803; J0131; J1100; J1650; J1815; J1956; J2270; J2405; J8540

== ENCOUNTER 2021-10-27 12:53 | Outpatient (CLI) | payer MEDICARE, OTHER, SELFPAY ==
--- NOTE | ~2021-10-27 | XR_ITS ---
XR shoulder RT min 2V DATE: 10/27/2021 13:30 INDICATION: Fall one week ago. Bilateral shoulder pain, left greater than right TECHNIQUE: 4 views COMPARISON: 05/11/2021 right shoulder FINDINGS: There is diffuse osteopenia. There is joint space narrowing and mild spurring at the acromioclavicular joint. No fracture or dislocation, periosteal reaction or bone destruction or abnormal right shoulder soft t issue calcification. Scoliosis and degenerative change of the thoracic spine. IMPRESSION: Osteopenia Mild degenerative change at the right acromioclavicular joint Reviewed, dictated and finalized at location A. S CLERK FOOD
--- NOTE | ~2021-10-27 | XR_ITS ---
XR_CERV2-3V_CR DATE: 10/27/2021 13:31 INDICATION: Fall one week ago. Bilateral shoulder pain TECHNIQUE: AP, open-mouth, lateral and swimmer views COMPARISON: 05/11/2021 cervical spine FINDINGS: C1 and C2 are normally aligned and the odontoid process is intact. There is approximately 1-1.5 mm anterolisthesis at C4-5. There is prominent degenerative disease at C5-6 and C6-7. Uncovertebral joint spurring is noted in th e lower cervical spine, best demonstrated on the left at C5-6. IMPRESSION: Cervical spondylosis Reviewed, dictated and finalized at Location [facility]. Reviewed, dictated and finalized at location A. TS MEDICINE COORDINATOR IMPRESSION: Cervical spondylosis
--- NOTE | ~2021-10-27 | XR_ITS ---
XR shoulder LT min 2V DATE: 10/27/2021 13:31 INDICATION: Fall one week ago. Bilateral shoulder pain, left greater than right TECHNIQUE: 4 views COMPARISON: 01/12/2021 left shoulder FINDINGS: There is diffuse osteopenia. There is spurring of the left humeral head consistent with left glenohumeral osteoarthritis. No fracture or dislocation, periosteal reaction or bone destruction or abnormal soft tissue calcifica tion. Scoliosis and degenerative spurring of the thoracic spine. IMPRESSION: Left glenohumeral osteoarthritis Osteopenia Reviewed, dictated and finalized at location A. ISTICIAN APPLIED
== END 2021-10-27 12:54 | disposition home or self-care (01) ==
LOC: ANHIMG 13:00
PROVIDERS: PCP Family Medicine; Visit Provider Physician Assistant
DX: M25.519 Pain in unspecified shoulder (principal); M47.812 Spondylosis without myelopathy or radiculopathy, cervical region; M19.012 Primary osteoarthritis, left shoulder; M85.89 Other specified disorders of bone density and structure, multiple sites
CPT/HCPCS: 72040; 73030

== ENCOUNTER 2022-02-14 23:58 | Emergency (ER) | payer MEDICARE, OTHER, SELFPAY ==
--- NOTE | ~2022-02-14 | CT_ITS ---
EXAMINATION: CT brain wo con DATE: 02/15/2022 00:41 INDICATION: Minor head injury. Neck pain. Status post fall. TECHNIQUE: Computed tomography (CT) of the head was performed without intravenous contrast. The dose- length product was 605.33 mGy-cm. Automated exposure control and iterative reconstruction technique w ere employed. COMPARISON: CT dated 09/15/2021 FINDINGS: Mild generalized atrophy. There are scattered moderate periventricular and subcortical whit e matter changes, most likely related to small vessel ischemic disease (microangiopathy). No acute in tracranial hemorrhage, infarction, mass or mass effect. No ventriculomegaly or midline shift. Basilar cisterns are patent. Paranasal sinuses and mastoids are pneumatized. No depressed skull fractures. T here is intracranial atherosclerosis. IMPRESSION: 1. No acute intracranial abnormality. 2: Chronic age-related findings. Reviewed, dictated and finalized at location A.
--- NOTE | ~2022-02-14 | CT_ITS ---
EXAMINATION: CT cervical spine wo con DATE: 02/15/2022 00:41 INDICATION: Minor head injury. Neck pain. TECHNIQUE: Computed tomography (CT) of the cervical spine was performed without intravenous contrast. The dose-length product was 455 mGy-cm. Automated exposure control and iterative reconstruction tech nique were employed. COMPARISON: None FINDINGS: There is multilevel degenerative disc disease involving C5-6 and C6-7. There is degenerativ e anterolisthesis at C4-5. Odontoid process within normal limits. There is mild-moderate multilevel u ncinate and facet hypertrophy, more severe on the left. Lung apices are normal. Craniovertebral junct ion within normal limits. No acute fracture or traumatic malalignment. IMPRESSION: 1. No acute fracture. 2: Moderate cervical spondylosis. Reviewed, dictated and finalized at location A.
[2022-02-15 00:01] VITALS: BP 125/63; PULSE 64; RESP 16; O2SAT 94
[2022-02-15] MEDS: MORPHINE SULFATE (*CRX) 2 MG/ML INJ IV PUSH (01:04)
[2022-02-15 01:05] VITALS: BP 145/63; PULSE 64; RESP 18; O2SAT 94
[2022-02-15 01:50] VITALS: BP 130/60; PULSE 82; RESP 18; O2SAT 96
--- NOTE | 2022-02-15 01:57 | ED.FALL ---
HPI - Fall General Chief Complaint: Fall Stated Complaint: GLF WEAKNESS Time Seen by Provider: 02/15/22 00:07 History of Present Illness HPI Narrative: Patient is a 76-year-old female who presents to the ER status post fall. Patient was in her bathroom when she lost balance and fell into her bathtub. Unsure if she lost consciousness or struck her head. She does have neck pain acute on chronic. No upper or lower extremity numbness or tingling or weakness. Patient reports chronic shoulder pain recently had a left shoulder injection. Fevers or chills or sweats. No pain in lower extremities. Patient takes tramadol and gabapentin at home and requires additional pain medication at this time. Related Data Home Medications Medication Instructions Recorded Confirmed cholecalciferol (vitamin D3) 50 50 mcg PO DAILY 06/28/20 11/29/21 mcg (2,000 unit) capsule [id number]-[id number]-tolthr tablet 1 tablet PO DAILY 06/28/20 11/29/21 blood sugar diagnostic (FreeStyle 03/08/21 11/29/21 Lite Strips) secukinumab 150 mg/mL subcutaneous 150 mg subcut 05/09/21 11/29/21 syringe (Cosentyx) azathioprine 50 mg tablet 50 mg PO BID 07/14/21 11/29/21 tizanidine 2 mg tablet 2 mg PO DAILY 07/14/21 11/29/21 acetaminophen 650 mg tablet 650 mg PO Q4H PRN Pain 07/15/21 11/29/21 amlodipine 5 mg tablet 5 mg PO DAILY 07/15/21 11/29/21 ibuprofen 600 mg tablet 600 mg PO Q6H PRN Pain 07/15/21 11/29/21 lamotrigine 100 mg tablet 100 mg PO BID 07/15/21 11/29/21 metformin 500 mg tablet,extended 500 mg PO DAILY 07/15/21 11/29/21 release 24 hr biotin 5,000 mcg disintegrating 10,000 mcg PO DAILY 08/18/21 11/29/21 tablet diphenhydramine HCl 25 mg capsule 25 mg PO HS 08/18/21 11/29/21 (Benadryl) prednisone 2.5 mg tablet 2.5 mg PO BID 08/18/21 11/29/21 vit C 250 mg-vit E 90 mg-zinc 40 1 tablet PO DAILY 08/18/21 11/29/21 mg-copper 1 [id number]-ilhmgt capsule (PreserVision AREDS-2) trazodone 50 mg tablet 150 mg PO QPM 09/16/21 11/29/21 ferrous sulfate 325 mg (65 mg 325 mg PO BID 12/28/21 iron) tablet Allergies Allergy/AdvReac Type Severity Reaction Status Date / Time cephalexin Allergy Severe Anaphylaxis Verified 11/29/21 15:07 Review of Systems Review of Systems: All systems reviewed & are unremarkable except as noted in HPI and below Constitutional: Constitutional: Denies chills, Denies fatigue and Denies fever(s) Cardiovascular: Cardiovascular: Denies chest pain and Denies radiating jaw, neck or arm pain Respiratory: Respiratory: Denies cough and Denies dyspnea Musculoskeletal: Musculoskeletal: Denies back pain and Reports arthralgias (chronic shoulder pain) Comments: neck pain Neurologic: Denies syncope, Denies headache(s), Denies focal weakness and Denies numbness PMFSH Past Medical History Medical History Anal fissure Anemia Ankylosing spondylitis Anxiety B12 deficiency Bronchitis Closed nondisplaced fracture of proximal phalanx of lesser toe Constipation due to opioid therapy Depression Diabetes Diverticulitis Diverticulosis of colon (without mention of hemorrhage) Emphysema of lung Essential (primary) hypertension Fatty liver Gastro-esophageal reflux disease without esophagitis History of basal cell carcinoma (BCC) Macular degeneration Mixed hyperlipidemia Obstructive sleep apnea Osteoarthritis of left knee Peripheral neuropathy Psoriasis 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 Sleep apnea in adult Surgical History Surgical History H/O section History of carpal tunnel release History of carpal tunnel surgery of left wrist History of colonoscopy History of lumbar laminectomy History of sinus surgery Hx of cataract surgery Hx of tubal ligation Status post anal fissurectomy Status post cataract extraction of both eyes with insertion
== END 2022-02-15 02:10 | disposition home or self-care (01) ==
PROVIDERS: Emergency Provider Emergency Medicine; PCP Family Medicine
DX: S16.1XXA Strain of muscle, fascia and tendon at neck level, initial encounter (principal); E11.9 Type 2 diabetes mellitus without complications; Z87.891 Personal history of nicotine dependence; W18.2XXA Fall in (into) shower or empty bathtub, initial encounter
CPT/HCPCS: 70450; 72125; 96374; 99284; J2270; L0140

== ENCOUNTER 2022-02-24 15:15 | Emergency (ER) | payer MEDICARE, OTHER, SELFPAY ==
--- NOTE | ~2022-02-24 | XR_ITS ---
EXAMINATION: XR chest 1V Exam Date/Time: 02/24/2022 15:20 CDT HISTORY: fall Comparison: 09/17/2021. RESULT: Lines, tubes, and devices: None. Lungs and pleura: Clear. Cardiomediastinal silhouette: Stable cardiomediastinal silhouette. Other: No acute osseous or upper abdominal finding. IMPRESSION: No acute cardiopulmonary process. Reviewed, dictated and finalized at location K.
--- NOTE | ~2022-02-24 | XR_ITS ---
EXAM: XR hip BI 2V w AP pelvis DATE: 02/24/2022 15:40 HISTORY: FALL,GENERALIZED PAIN BILAT HIPS . COMPARISON: None available. FINDINGS: Decreased mineralization. No fracture or dislocation. No lytic or blastic lesion. Severe d egenerative lumbar change. Bilateral hip osteoarthritis. No erosion or periosteal change. Soft tissue s within normal limits. IMPRESSION: No acute osseous finding in the pelvis or bilateral hips. Reviewed, dictated and finalized at location K.
--- NOTE | ~2022-02-24 | CT_ITS ---
EXAMINATION: CT cervical spine wo con DATE: 02/24/2022 15:53 INDICATION: fall TECHNIQUE: Computed tomography (CT) of the cervical spine was performed without intravenous contrast. Automated exposure control and iterative reconstruction technique were employed. The dose-length pro duct was 397.86 mGy-cm. COMPARISON: 02/15/2022. FINDINGS: Counting reference: Craniocervical junction. There are seven cervical type vertebral bodies. Anatomic Variants: None. Vertebral Body Alignment: Intact. Craniocervical junction: Severe degenerative change. Alignment intact. Osseous structures/fracture: No evidence of a lytic or blastic process in the visualized spine. N o evidence of acute fracture. Cervical soft tissues: The paraspinal soft tissues planes are maintained. Degenerative changes: Multilevel degenerative disc disease and facet arthropathy. Multilevel severe b ilateral neural foraminal narrowing. No severe central canal narrowing.. IMPRESSION: No acute fracture or traumatic malalignment in the cervical spine. Reviewed, dictated and finalized at location K.
--- NOTE | ~2022-02-24 | CT_ITS ---
EXAMINATION: CT brain wo con DATE: 02/24/2022 15:53 INDICATION: fall . TECHNIQUE: Computed tomography (CT) of the head was performed without intravenous contrast. The mA wa s adjusted according to patient size. Iterative reconstruction technique was employed. The dose-lengt h product was 529.67 mGy-cm. COMPARISON: 02/15/2022. FINDINGS: No acute intracranial hemorrhage or extra-axial fluid collection. No hydrocephalus, mass, or herniation. No acute ischemic infarct. Unremarkable dural venous sinus attenuation. No acute osseous abnormality. The aerated spaces are clear. Moderate atrophy. Severe chronic white matter change. Atherosclerotic intracranial calcifications. Bi lateral lens replacements. IMPRESSION: No acute intracranial process. Reviewed, dictated and finalized at location K.
--- NOTE | ~2022-02-24 | CT_ITS ---
EXAMINATION: CT lumbar spine wo con DATE: 02/24/2022 15:53 INDICATION: fall . TECHNIQUE: Computed tomography (CT) of the thoracic spine was performed without intravenous contrast. Automated exposure control and iterative reconstruction technique were employed. The dose-length pro duct was 1290.32 mGy-cm. COMPARISON: X-ray L-spine 11/04/2019. CT lumbar spine 01/14/2018. FINDINGS: 4 nonrib-bearing lumbar-type vertebral bodies, with likely sacralization of L5. Pedicles in tact. Lumbar scoliosis. Partial loss of the normal lumbar lordosis. Vertebral body heights preserved. Multilevel severe degenerative disc disease. Multilevel severe bilateral neural foraminal narrowing. Multilevel severe facet arthropathy. Multilevel severe central canal narrowing. Atherosclerotic calc ifications. Proteinaceous/hemorrhagic left renal cyst. IMPRESSION: 1. No acute fracture or traumatic malalignment in the lumbar spine. Reviewed, dictated and finalized at location K.
[2022-02-24 15:14] VITALS: BP 188/75; PULSE 67; RESP 17; TEMP 36.6; O2SAT 94
--- NOTE | 2022-02-24 15:31 | ED.FALL ---
HPI - Fall General Chief Complaint: Fall Stated Complaint: lost balance, fell, back bilat hip pain Source: RN notes reviewed History of Present Illness HPI Narrative: Patient presents to emergency department from home via EMS for fall. Patient states that she normally walks with a walker to try to get dressed today when she fell she states that she has pain in her lower back and in her bilateral hips since the fall and is able to get up on her own patient does note some mild neck pain as well she does not believe she struck her head did not have loss of consciousness she denies any pain in the bilateral arms she denies chest pain shortness of abdominal pain nausea vomiting Related Data Home Medications Medication Instructions Recorded Confirmed cholecalciferol (vitamin D3) 50 50 mcg PO DAILY 06/28/20 11/29/21 mcg (2,000 unit) capsule dbnkoqxrckwh-typlnbxo-kqmneg tablet 1 tablet PO DAILY 06/28/20 11/29/21 blood [facility] ([facility]08[facility] 11/29/21 Lite Strips) secukinumab 150 mg/mL subcutaneous 150 mg subcut 05/09/21 11/29/21 syringe (Cosentyx) azathioprine 50 mg tablet 50 mg PO BID 07/14/21 11/29/21 tizanidine 2 mg tablet 2 mg PO DAILY 07/14/21 11/29/21 acetaminophen 650 mg tablet 650 mg PO Q4H PRN Pain 07/15/21 11/29/21 amlodipine 5 mg tablet 5 mg PO DAILY 07/15/21 11/29/21 ibuprofen 600 mg tablet 600 mg PO Q6H PRN Pain 07/15/21 11/29/21 lamotrigine 100 mg tablet 100 mg PO BID 07/15/21 11/29/21 metformin 500 mg tablet,extended 500 mg PO DAILY 07/15/21 11/29/21 release 24 hr biotin 5,000 mcg disintegrating 10,000 mcg PO DAILY 08/18/21 11/29/21 tablet diphenhydramine HCl 25 mg capsule 25 mg PO HS 08/18/21 11/29/21 (Benadryl) prednisone 2.5 mg tablet 2.5 mg PO BID 08/18/21 11/29/21 vit C 250 mg-vit E 90 mg-zinc 40 1 tablet PO DAILY 08/18/21 11/29/21 mg-copper 1 [id number]-kmvgrk capsule (PreserVision AREDS-2) trazodone 50 mg tablet 150 mg PO QPM 09/16/21 11/29/21 ferrous sulfate 325 mg (65 mg 325 mg PO BID 12/28/21 iron) tablet Allergies Allergy/AdvReac Type Severity Reaction Status Date / Time cephalexin Allergy Severe Anaphylaxis Verified 11/29/21 15:07 Review of Systems Review of Systems: Gen.: Denies fevers or chills Eyes: Denies eye pain or visual change ENT: Denies congestion Respiratory: Denies shortness of breath or cough CV: Denies chest pain or palpitations GI: Denies abdominal pain nausea, emesis Musculoskeletal: See HPI Neuro: Denies numbness, tingling, weakness or focal weakness Skin: Denies rash Except as documented, all other systems reviewed and negative [facility] Past Medical History Medical History Anal fissure Anemia Ankylosing spondylitis Anxiety B12 deficiency Bronchitis Closed nondisplaced fracture of proximal phalanx of lesser toe Constipation due to opioid therapy Depression Diabetes Diverticulitis Diverticulosis of colon (without mention of hemorrhage) Emphysema of lung Essential (primary) hypertension Fatty liver Gastro-esophageal reflux disease without esophagitis History of basal cell carcinoma (BCC) Macular degeneration Mixed hyperlipidemia Obstructive sleep apnea Osteoarthritis of left knee Peripheral neuropathy Psoriasis 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 Family History Mother Hypertension, On
[2022-02-24] MEDS: ACETAMINOPHEN 500 MG TABLET 1000 MG PO (16:27)
[2022-02-24 16:31] VITALS: BP 165/76; PULSE 69; RESP 15; O2SAT 92
== END 2022-02-24 18:04 | disposition home or self-care (01) ==
PROVIDERS: Emergency Provider Emergency Medicine; PCP Family Medicine
DX: S39.92XA Unspecified injury of lower back, initial encounter (principal); S16.1XXA Strain of muscle, fascia and tendon at neck level, initial encounter; E11.42 Type 2 diabetes mellitus with diabetic polyneuropathy; J43.9 Emphysema, unspecified; I10 Essential (primary) hypertension; K21.9 Gastro-esophageal reflux disease without esophagitis; H35.30 Unspecified macular degeneration; M05.879 Other rheumatoid arthritis with rheumatoid factor of unspecified ankle and foot; E53.8 Deficiency of other specified B group vitamins; E78.2 Mixed hyperlipidemia; G47.33 Obstructive sleep apnea (adult) (pediatric); M17.12 Unilateral primary osteoarthritis, left knee; Z98.42 Cataract extraction status, left eye; Z98.41 Cataract extraction status, right eye; Z96.1 Presence of intraocular lens; Z79.84 Long term (current) use of oral hypoglycemic drugs; Z85.828 Personal history of other malignant neoplasm of skin; Z86.2 Personal history of diseases of the blood and blood-forming organs and certain disorders involving the immune mechanism; Z87.891 Personal history of nicotine dependence
CPT/HCPCS: 70450; 71045; 72125; 72131; 73521; 99284; A9270

== ENCOUNTER 2022-02-26 01:25 | Emergency (ER) | payer MEDICARE, OTHER, SELFPAY ==
--- NOTE | ~2022-02-26 | XR_ITS ---
EXAMINATION: XR hip LT min 3V w AP pelvis DATE: 02/26/2022 02:25 INDICATION: Left hip injury. TECHNIQUE: An anteroposterior view of the pelvis and 2 views of left hip were obtained. COMPARISON: Pelvis and hip radiograph 02/24/2022 FINDINGS: There is lumbar dextroscoliosis and severe spondylosis. No fracture. There is moderate righ t hip osteoarthritis and mild left hip osteoarthritis. IMPRESSION: 1. Moderate right hip osteoarthritis and mild left hip osteoarthritis. Reviewed, dictated and finalized at location B.
--- NOTE | ~2022-02-26 | XR_ITS ---
EXAMINATION: XR knee LT 3V DATE: 02/26/2022 02:25 INDICATION: Generalized left knee pain post fall TECHNIQUE: Anteroposterior, oblique and crosstable lateral views of the left knee were obtained COMPARISON: 02/22/2020 FINDINGS: Alignment is normal. No fracture. Joint space narrowing the medial compartment, moderate severity in the current nonweightbearing imaging most severe on the prior weightbearing imaging with small cecelia nal osteophytes and remodeling of the articular surfaces. No joint effusion/layering lipohemarthrosis . Soft tissues are unremarkable. IMPRESSION: 1. No left knee joint effusion or acute osseous abnormality. 2. Severe osteoarthritis in the medial compartment of the left knee. Reviewed, dictated and finalized at location A.
[2022-02-26 01:25] VITALS: BP 145/67; PULSE 65; RESP 16; TEMP 36.2; O2SAT 93
--- NOTE | 2022-02-26 01:53 | ED.FALL ---
HPI - Fall General Chief Complaint: Fall Stated Complaint: glf left side, hip, knee pain Time Seen by Provider: 02/26/22 01:44 History of Present Illness HPI Narrative: 76-year-old female presented to the emergency room for evaluation of injury sustained from a fall. Patient states about 30 minutes prior to arrival she woke up to use the restroom and reports her walker gave out on her causing her to fall on her left knee and left hip. Patient denies injuring her back or hitting her head. Patient states that she called EMS and was able to stand and ambulate with her assistance. Related Data Home Medications Medication Instructions Recorded Confirmed cholecalciferol (vitamin D3) 50 50 mcg PO DAILY 06/28/20 11/29/21 mcg (2,000 unit) capsule wuoynjjzaooq-gcfgyarp-qdqrlq tablet 1 tablet PO DAILY 06/28/20 11/29/21 [facility] 03/08[facility]21 11/29/21 Lite Strips) secukinumab 150 mg/mL subcutaneous 150 mg subcut 05/09/21 11/29/21 syringe (Cosentyx) azathioprine 50 mg tablet 50 mg PO BID 07/14/21 11/29/21 tizanidine 2 mg tablet 2 mg PO DAILY 07/14/21 11/29/21 acetaminophen 650 mg tablet 650 mg PO Q4H PRN Pain 07/15/21 11/29/21 amlodipine 5 mg tablet 5 mg PO DAILY 07/15/21 11/29/21 ibuprofen 600 mg tablet 600 mg PO Q6H PRN Pain 07/15/21 11/29/21 lamotrigine 100 mg tablet 100 mg PO BID 07/15/21 11/29/21 metformin 500 mg tablet,extended 500 mg PO DAILY 07/15/21 11/29/21 release 24 hr biotin 5,000 mcg disintegrating 10,000 mcg PO DAILY 08/18/21 11/29/21 tablet diphenhydramine HCl 25 mg capsule 25 mg PO HS 08/18/21 11/29/21 (Benadryl) prednisone 2.5 mg tablet 2.5 mg PO BID 08/18/21 11/29/21 vit C 250 mg-vit E 90 mg-zinc 40 1 tablet PO DAILY 08/18/21 11/29/21 mg-copper 1 rr-iilwmn-edyxxf capsule (PreserVision AREDS-2) trazodone 50 mg tablet 150 mg PO QPM 09/16/21 11/29/21 ferrous sulfate 325 mg (65 mg 325 mg PO BID 12/28/21 iron) tablet Allergies Allergy/AdvReac Type Severity Reaction Status Date / Time cephalexin Allergy Severe Anaphylaxis Verified 02/26/22 01:34 Review of Systems Review of Systems: CONSTITUTIONAL: Denies fever, chills, or sweats. EYES: Denies visual changes, redness, or discharge. ENT: Denies rhinorrhea, congestion, sore throat, or otalgia. CARDIOVASCULAR: Denies chest pain, palpitations, or edema. RESPIRATORY: Denies cough or dyspnea. GASTROINTESTINAL: Denies abdominal pain, nausea, vomiting, or diarrhea. GENITOURINARY: Denies dysuria or hematuria. SKIN: Denies rash or itching. MUSCULOSKELETAL: Reports left knee and left hip pain NEUROLOGIC: Denies headache, numbness, dizziness, or weakness. PSYCHIATRIC: Denies anxiety or depression. [facility] Past Medical History Medical History Anal fissure Anemia Ankylosing spondylitis Anxiety B12 deficiency Bronchitis Closed nondisplaced fracture of proximal phalanx of lesser toe Constipation due to opioid therapy Depression Diabetes Diverticulitis Diverticulosis of colon (without mention of hemorrhage) Emphysema of lung Essential (primary) hypertension Fatty liver Gastro-esophageal reflux disease without esophagitis History of basal cell carcinoma (BCC) Macular degeneration Mixed hyperlipidemia Obstructive sleep apnea Osteoarthritis of left knee Peripheral neuropathy Psoriasis 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
[2022-02-26 02:26] LABS: Appearance Urine Clear (Clear); Bilirubin Urine Negative (Negative); Blood Urine Negative (Negative); Color Urine Yellow (Yellow); Glucose Urine UA Negative (Negative); Ketones Urine Negative (Negative); Leukocyte Esterase Ur 2+ LEU/UL (Negative); Nitrate Urine Negative (Negative); Protein Urine Negative (Negative); Specific Grav Ur <= 1.005 (1.001-1.035); Urobilinogen Urine 0.2 mg/dL (<2.0); pH Urine 5.5 (5.0-9.0)
[2022-02-26 02:28] LABS: Basophils Percent Auto 0.6 % (0.2-1.2); Eosinophils Absolute Auto 0.1 K/mm3 (0-0.3); Eosinophils Percent Auto 1.7 % (0-4.4); Hematocrit 28.4 % (37.0-47.0); Immature Granulocyte Absolute 0.04 K/mm3 (0.00-0.031); Immature Granulocyte Percent A 0.8 % (0-0.5); Immature Platelet Fraction Pct 3.2 % (0.9-11.2); Lymphocytes Absolute Auto 1.83 K/mm3 (0.9-3.2); Lymphocytes Percent Auto 38.5 % (18.3-44.2); Mean Corpuscular HGB Conc 31.7 g/dl (32-36); Mean Corpuscular Volume 94.7 fl (80-100); Mean Platelet Volume 9.8 fl (7.4-10.4); Monocytes Absolute Auto 0.4 K/mm3 (0.1-0.6); Monocytes Percent Auto 8.6 % (2.6-8.5); Neutrophils Absolute Auto 2.4 K/mm3 (1.3-6.7); Neutrophils Percent Auto 49.8 % (45.5-73.1); Platelet Count Result 273 k/mm3 (150-375); Red Cell Distribution Width 19.9 % (11.5-14.5); White Blood Count 4.8 K/mm3 (4.5-10.0)
[2022-02-26 02:31] LABS: Bacteria Urine Trace /hpf; Mucus Urine Rare /lpf; Squamous Epithelial Cell Urine Few /hpf (Few)
[2022-02-26 02:38] LABS: Alanine Aminotransferase 18 U/L (6-35); Albumin Level 3.6 g/dL (3.5-5.1); Alkaline Phosphatase 135 U/L (38-126); Anion Gap 5 mmol/L (8-16); Aspartate Amino Transferase 20 U/L (14-36); Bilirubin,Total 0.2 mg/dL (0.2-1.3); Blood Urea Nitrogen 13 mg/dL (7-17); Calcium 8.8 mg/dL (8.4-10.2); Carbon Dioxide 28 mmol/L (22-30); Chloride 101 mmol/L (98-107); Estimated CRCL calculation 67 ml/min; Estimated Glomerular Filt Rate > 60; Glucose 152 mg/dL (65-110); Potassium 3.8 mmol/L (3.4-5.0); Sodium 134 mmol/L (137-145)
[2022-02-26 02:47] LABS: Add Urine Microscopic? YES
[2022-02-26 03:15] VITALS: BP 151/65; PULSE 67; RESP 14; O2SAT 95
== END 2022-02-26 03:17 | disposition home or self-care (01) ==
PROVIDERS: Emergency Provider Nurse Practitioner Family; PCP Family Medicine
DX: S70.02XA Contusion of left hip, initial encounter (principal); S80.02XA Contusion of left knee, initial encounter; D64.9 Anemia, unspecified; E11.9 Type 2 diabetes mellitus without complications; F32.9 Major depressive disorder, single episode, unspecified; J43.9 Emphysema, unspecified; E78.2 Mixed hyperlipidemia; I10 Essential (primary) hypertension; M06.9 Rheumatoid arthritis, unspecified; Z87.891 Personal history of nicotine dependence; Z79.84 Long term (current) use of oral hypoglycemic drugs; W18.30XA Fall on same level, unspecified, initial encounter
CPT/HCPCS: 36415; 73502; 73562; 80053; 81001; 85025; 85055; 87086; 99284

== ENCOUNTER 2022-03-21 23:03 | Observation (INO) | payer MEDICARE, OTHER, SELFPAY ==
--- NOTE | ~2022-03-21 | CT_ITS ---
EXAMINATION: CT brain wo con DATE: 03/21/2022 23:44 INDICATION: Status post fall. Syncope. TECHNIQUE: Computed tomography (CT) of the head was performed without intravenous contrast. The dose- length product was 605.33 mGy-cm. Automated exposure control and iterative reconstruction technique w ere employed. COMPARISON: CT dated 02/24/2022 FINDINGS: Generalized atrophy. There are scattered severe periventricular and subcortical white matte r changes, most likely related to small vessel ischemic disease (microangiopathy). There is intracran ial atherosclerosis. No acute intracranial hemorrhage, infarction, mass or mass effect. No ventriculo megaly or midline shift. Paranasal sinuses and mastoids are pneumatized. IMPRESSION: 1. No acute intracranial abnormality. 2: Chronic age-related findings. Reviewed, dictated and finalized at location A.
--- NOTE | ~2022-03-21 | CT_ITS ---
EXAMINATION: CT abdomen pelvis wo con DATE: 03/22/2022 01:32 INDICATION: Pelvic pain. TECHNIQUE: Computed tomography (CT) of the abdomen and pelvis was performed without intravenous contr ast. The dose-length product was 1329.77 mGy-cm. Automated exposure control and iterative reconstruct ion technique were employed. COMPARISON: CT dated 09/28/2020. FINDINGS: There is dependent atelectasis. Heart size upper normal. No significant pleural or pericard ial effusion. There are bilateral renal calcifications which may be vascular or nonobstructing stones . There is a hyperdense mass of the left kidney posteriorly measuring 1.8 cm with 46 Hounsfield units , most likely hemorrhagic/proteinaceous cyst, unchanged from prior study allowing for differences of technique. The liver, spleen, pancreas, adrenal glands. There is a duodenal diverticulum. Colonic div erticulosis without evidence for diverticulitis. There is a partially calcified uterine fibroid. [place] miguel diverticulosis without evidence for diverticulitis. No bowel obstruction. No free air or free flu id. There is atherosclerosis of the aorta without aneurysm. Severe lumbar spondylosis. Dextroscoliosi s. IMPRESSION: 1. No acute abdominal abnormality. Reviewed, dictated and finalized at location A.
--- NOTE | ~2022-03-21 | XR_ITS ---
EXAMINATION: XR pelvis 1-2V INDICATION: Pelvic pain after fall TECHNIQUE: AP view the pelvis is obtained on two radiographs. COMPARISON: CT from today FINDINGS: Bone alignment is normal. There is no fracture. There is mild osteoarthritis of the hips. P elvic calcifications are noted. There are severe spondylosis of the visualized lumbar spine. IMPRESSION: 1. Mild osteoarthritis of the hips. Reviewed, dictated and finalized at location B.
--- NOTE | ~2022-03-21 | CT_ITS ---
EXAMINATION: CT thoracic spine wo con DATE: 03/22/2022 01:31 INDICATION: Back pain TECHNIQUE: Computed tomography (CT) of the thoracic spine was performed without intravenous contrast. The dose-length product was 1424.13 mGy-cm. Automated exposure control and iterative reconstruction technique were employed. COMPARISON: MRI thoracic spine dated 06/30/2020 and thoracic spine series dated 05/11/2021 FINDINGS: Mild chronic wedge shaped appearance to C5 and C6. Mild degenerative disc disease at multip le levels. Accentuated thoracic kyphosis. No acute fracture or traumatic malalignment. Mild dextrosco liosis. No significant paraspinal soft tissue abnormality. There is atherosclerosis of the aorta. IMPRESSION: 1. No acute abnormality of the thoracic spine. 2: Mild chronic wedge compression deformities of T5 and T6 with mild thoracic spondylosis. Reviewed, dictated and finalized at location A. IMPRESSION: 1. No acute abnormality of the thoracic spine. 2: Mild chronic wedge compression deformities of T5 and T6 with mild thoracic s pondylosis.
--- NOTE | ~2022-03-21 | CT_ITS ---
EXAMINATION: CT cervical spine wo con DATE: 03/21/2022 23:44 INDICATION: Head injury TECHNIQUE: Computed tomography (CT) of the cervical spine was performed without intravenous contrast. The dose-length product (DLP) was 504.55 mGy-cm. Automated exposure control and iterative reconstruc tion technique were employed. COMPARISON: 02/24/2022 FINDINGS: Bone alignment is normal. There is no fracture. There is severe loss of intervertebral disc space height at C5-6 and C6-7 and mild loss of disc space height throughout the remainder of the cer vical spine. The vertebral body heights are normal. The odontoid is intact. There is severe multileve l facet and uncovertebral joint osteoarthritis. IMPRESSION: 1. Severe cervical spondylosis without acute findings or significant interval change. Reviewed, dictated and finalized at location B.
--- NOTE | ~2022-03-21 | CT_ITS ---
EXAMINATION: CTA brain DATE: 03/22/2022 17:43 INDICATION: Syncope TECHNIQUE: Computed tomographic angiography (CTA) of the head was performed without and with 100 mL O mnipaque-300 intravenous contrast. Volume-rendered and maximum intensity projection 3D reconstruction s of the intracranial arteries were created by the technologist on a separate workstation. The mA was adjusted according to patient size. Iterative reconstruction technique was employed. The dose-length product was 1025.34 mGy-cm. COMPARISON: Head CT dated 03/21/2022 FINDINGS: No acute intracranial hemorrhage, acute infarction or abnormal extra axial fluid collection. There is prominent scattered white matter hypoattenuation consistent with chronic small vessel ischemic disea se. Symmetric prominence of the sulci and ventricles consistent with mild age-appropriate diffuse cer ebral volume loss. No mass/mass effect. No abnormal enhancing brain lesions. Changes of bilateral int raocular lens replacement. The orbits, paranasal sinuses and mastoid air cells are normal. Small calcite atherosclerotic plaque at the bilateral carotid siphons without hemodynamically signifi cant stenosis. There is no hemodynamically significant stenosis in the vertebral, basilar and interna l carotid arteries. Right vertebral artery is dominant. The majority of the flow from the small left vertebral artery extends into the posterior inferior cerebellar artery with more distal diminutive le ft vertebral artery continuing to the basilar artery.. There are no aneurysms, dissection or thrombos ed vessels identified. Both A1 and P1 segments are patent. The right P1 segment is small with collat eral flow supplied via a larger caliber right posterior communicating artery. There appears to be dim inutive anterior to indicating artery. Cerebral arterial arborization appears symmetric. IMPRESSION: 1. No acute intracranial process with stable appearance of age-related changes including mild diffuse volume loss and prominent scattered white matter hypoattenuation consistent with chronic small vesse l ischemic disease. 2. Atherosclerotic calcific a cyst at the bilateral carotid siphons without hemodynamically significa nt stenosis. Otherwise unremarkable cerebral CT angiogram with no hemodynamically significant stenosi s, aneurysm, dissection or thrombosis. Reviewed, dictated and finalized at location A. IMPRESSION: 1. No acute intracranial process with stable appearance of age-related changes including mild diffuse volume loss and prominent scattered white matter hypoatt enuation consistent with chronic small vessel ischemic disease. 2. Atherosclerotic calcific a cyst at the bilateral carotid siphons without hem odynamically significant stenosis. Otherwise unremarkable cerebral CT angiogram with no hemodynamically significant stenosis, aneurysm, dissection or thrombos is.
--- NOTE | ~2022-03-21 | XR_ITS ---
EXAMINATION: XR chest 1V portable INDICATION: Chest pain after fall TECHNIQUE: Portable AP chest at 2321 hours COMPARISON: 02/24/2022 FINDINGS: The lungs are free of acute opacities. No pleural effusion or pneumothorax. The cardiomedia stinal silhouette is normal. IMPRESSION: 1. No acute cardiopulmonary abnormality. Reviewed, dictated and finalized at location B.
[2022-03-21 23:05] VITALS: BP 122/103; PULSE 85; RESP 14; TEMP 36.6; O2SAT 94
--- NOTE | 2022-03-21 23:15 | ECG_ITS ---
Measurements Intervals [place] Rate: 83 P: 33 AK: 191 QRS: 6 QRSD: 106 T: 55 QT: 440 QTc: 517 Interpretive Statements SINUS RHYTHM LEFT VENTRICULAR HYPERTROPHY WITH ST-T CHANGE INFERIOR INFARCT, AGE INDETERMINATE BORDERLINE T WAVE ABNORMALITY- ANTERIOR LEADS BASELINE ARTIFACT- I, III, AVL ABNORMAL ECG Electronically Signed On 03-22-2022 7:01:46 CDT by Alfredo Wright D.O.
--- NOTE | 2022-03-21 23:18 | ED.DIZZY ---
HPI - Dizziness General Chief Complaint: Syncope Stated Complaint: FALL/HIT HEAD/GEN WEAKNESS Time Seen by Provider: 03/21/22 23:04 Source: RN notes reviewed History of Present Illness HPI Narrative: Patient presents emergency department from home via EMS for a fall. Patient states she was sitting on the toilet urinating when she fell over into the bathtub she is unsure if she passed out or simply fell states that she was sitting and was not attempting to stand. She states she has been feeling more weak and lightheaded today she denies any recent illness she denies any fevers or chills chest pain shortness of breath abdominal pain nausea or vomiting. Patient states she did have several beers this evening and does drink several beers a day Related Data Home Medications Medication Instructions Recorded Confirmed cholecalciferol (vitamin D3) 50 50 mcg PO DAILY 06/28/20 03/14/22 mcg (2,000 unit) capsule ottkcjvvdnwe-fnwsjrpu-tctchc tablet 1 tablet PO DAILY 06/28/20 03/14/22 blood sugar diagnostic ([facility] 03/08/21 03/14/22 Lite Strips) secukinumab 150 mg/mL subcutaneous 150 mg subcut 05/09/21 03/14/22 syringe (Cosentyx) azathioprine 50 mg tablet 50 mg PO BID 07/14/21 03/14/22 tizanidine 2 mg tablet 2 mg PO DAILY 07/14/21 03/14/22 acetaminophen 650 mg tablet 650 mg PO Q4H PRN Pain 07/15/21 03/14/22 amlodipine 5 mg tablet 5 mg PO DAILY 07/15/21 03/14/22 ibuprofen 600 mg tablet 600 mg PO Q6H PRN Pain 07/15/21 03/14/22 lamotrigine 100 mg tablet 100 mg PO BID 07/15/21 03/14/22 metformin 500 mg tablet,extended 500 mg PO DAILY 07/15/21 03/14/22 release 24 hr biotin 5,000 mcg disintegrating 10,000 mcg PO DAILY 08/18/21 03/14/22 tablet diphenhydramine HCl 25 mg capsule 25 mg PO HS 08/18/21 03/14/22 (Benadryl) prednisone 2.5 mg tablet 2.5 mg PO BID 08/18/21 03/14/22 vit C 250 mg-vit E 90 mg-zinc 40 1 tablet PO DAILY 08/18/21 03/14/22 mg-copper 1 wy-cxrwmy-faddia capsule (PreserVision AREDS-2) trazodone 50 mg tablet 150 mg PO QPM 09/16/21 03/14/22 ferrous sulfate 325 mg (65 mg 325 mg PO BID 12/28/21 03/14/22 iron) tablet Allergies Allergy/AdvReac Type Severity Reaction Status Date / Time cephalexin Allergy Severe Anaphylaxis Verified 02/26/22 01:34 Review of Systems Review of Systems: Gen.: Denies fevers or chills Eyes: Denies eye pain or visual change ENT: Denies congestion Respiratory: Denies shortness of breath or cough CV: Denies chest pain reports possible syncope GI: Denies abdominal pain nausea, emesis or diarrhea Musculoskeletal: Denies back pain or muscle pain Neuro: Reports general weakness Skin: Denies rash Except as documented, all other systems reviewed and negative PMFSH Past Medical History Medical History Anal fissure Anemia Ankylosing spondylitis Anxiety B12 deficiency Bronchitis Closed nondisplaced fracture of proximal phalanx of lesser toe Constipation due to opioid therapy Depression Diabetes Diverticulitis Diverticulosis of colon (without mention of hemorrhage) Emphysema of lung Essential (primary) hypertension Fatty liver Gastro-esophageal reflux disease without esophagitis History of basal cell carcinoma (BCC) Macular degeneration Mixed hyperlipidemia Obstructive sleep apnea Osteoarthritis of left knee Peripheral neuropathy Psoriasis 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
[2022-03-21 23:26] VITALS: PULSE 82; RESP 15; O2SAT 94
[2022-03-21 23:30] LABS: Glucose Point of Care 224 mg/dl (65-105)
[2022-03-21 23:31] LABS: Basophils Percent Auto 0.4 % (0.2-1.2); Eosinophils Absolute Auto 0.1 K/mm3 (0-0.3); Hematocrit 39.9 % (37.0-47.0); Hemoglobin 12.6 g/dL (12.0-15.0); Immature Granulocyte Absolute 0.05 K/mm3 (0.00-0.031); Immature Granulocyte Percent A 0.7 % (0-0.5); Lymphocytes Absolute Auto 1.47 K/mm3 (0.9-3.2); Lymphocytes Percent Auto 20.3 % (18.3-44.2); Mean Corpuscular HGB Conc 31.6 g/dl (32-36); Mean Corpuscular Hemoglobin 30.9 pg (26-34); Mean Corpuscular Volume 97.8 fl (80-100); Mean Platelet Volume 9.9 fl (7.4-10.4); Monocytes Absolute Auto 0.7 K/mm3 (0.1-0.6); Neutrophils Percent Auto 68.6 % (45.5-73.1); Platelet Count Result 269 k/mm3 (150-375); Red Blood Count 4.08 M/mm3 (4.2-5.4); Red Cell Distribution Width 17.2 % (11.5-14.5); White Blood Count 7.2 K/mm3 (4.5-10.0)
[2022-03-21 23:39] LABS: Ethanol 50 mg/dL (<10)
[2022-03-21 23:40] LABS: Alanine Aminotransferase 17 U/L (6-35); Albumin Level 4.1 g/dL (3.5-5.1); Alkaline Phosphatase 108 U/L (38-126); Anion Gap 7 mmol/L (8-16); Aspartate Amino Transferase 28 U/L (14-36); Bilirubin,Total 0.2 mg/dL (0.2-1.3); Blood Urea Nitrogen 8 mg/dL (7-17); Calcium 9.4 mg/dL (8.4-10.2); Carbon Dioxide 28 mmol/L (22-30); Chloride 99 mmol/L (98-107); Creatine Kinase 26 U/L (30-135); Estimated CRCL calculation 82 ml/min; Estimated Glomerular Filt Rate > 60; Glucose 225 mg/dL (65-110); Magnesium 2.1 mg/dL (1.6-2.3); Potassium 3.9 mmol/L (3.4-5.0); Sodium 134 mmol/L (137-145)
[2022-03-21 23:42] VITALS: PULSE 77; RESP 16; O2SAT 92
[2022-03-21 23:45] VITALS: PULSE 80; RESP 14; O2SAT 94
[2022-03-21] MEDS: SODIUM CHLORIDE 0.9% IV 1,000 ML 999 ML IV CONT (23:49)
[2022-03-21 23:51] LABS: Troponin I < 0.012 ng/mL (0.000-0.034)
[2022-03-21 23:52] LABS: Prothrombin Time 12.7 Seconds (11.1-14.7)
[2022-03-21 23:53] LABS: Partial Thromboplastin Time 28.8 SECONDS (22.3-36.8)
[2022-03-22] VITALS (42 sets, daily range): BP systolic 128–186; BP diastolic 75–88; PULSE 67–111; RESP 9–22; TEMP 36.3–36.7; O2SAT 92–97; BMI 34.7
[2022-03-22 02:08] LABS: D Dimer 0.42 ug/mL (<0.48)
[2022-03-22 02:47] LABS: Appearance Urine Clear (Clear); Bilirubin Urine Negative (Negative); Blood Urine Negative (Negative); Color Urine Yellow (Yellow); Glucose Urine UA Negative (Negative); Ketones Urine Negative (Negative); Leukocyte Esterase Ur Negative LEU/UL (Negative); Nitrate Urine Negative (Negative); Protein Urine Negative (Negative); Specific Grav Ur <= 1.005 (1.001-1.035); Urobilinogen Urine 0.2 mg/dL (<2.0); pH Urine 5.5 (5.0-9.0)
[2022-03-22 02:58] LABS: Mucus Urine Rare /lpf; WBC Urine 0-3 /hpf
[2022-03-22 03:13] LABS: Add Urine Microscopic? NO
[2022-03-22 05:34] LABS: SARS-CoV-2 RNA PCR Negative
[2022-03-22 07:57] LABS: Glucose Point of Care 185 mg/dl (65-105)
--- NOTE | 2022-03-22 10:09 | ADMGEN ---
This patient, Blanca Nam, was admitted to [facility] Surg Room 304-02. Patient/family oriented to hospital policies and general routines including ID bracelet, bed and alarms, visiting hours, pain management, procedures, bathroom and other care routines, personal items, smoking policy, room service/diet, and visiting hours. Information on how to activate the Rapid Response Team has been discussed. Patient/Family are encouraged to report perceived risks to care and to ask questions if they do not understand what they are told or what they should do.
[2022-03-22 10:39] LABS: Troponin I < 0.012 ng/mL (0.000-0.034)
[2022-03-22 12:01] LABS: Glucose Point of Care 154 mg/dl (65-105)
[2022-03-22 13:29] LABS: Troponin I < 0.012 ng/mL (0.000-0.034)
[2022-03-22] MEDS: traMADol HCL (*CRX) 50 MG TABLET PO ×2 (13:47→20:36)
[2022-03-22] MEDS: THIAMINE HCL 100 MG TABLET PO (13:48)
[2022-03-22] MEDS: FOLIC ACID 1 MG TABLET PO (13:48)
[2022-03-22] MEDS: ACETAMINOPHEN 500 MG TABLET 1000 MG PO ×2 (15:20→22:25)
--- NOTE | 2022-03-22 16:20 | PM.IMHP ---
H&P: HPI History of Present Illness Date/Time: 03/22/22 16:20 Chief Complaint: syncopal episode with collapse Narrative: ED-HPI:Patient presents emergency department from home via EMS for a fall.? Patient states she was sitting on the toilet urinating when she fell over into the bathtub she is unsure if she passed out or simply fell states that she was sitting and was not attempting to stand.? She states she has been feeling more weak and lightheaded today she denies any recent illness she denies any fevers or chills chest pain shortness of breath abdominal pain nausea or vomiting.? Patient states she did have several beers this evening and does drink several beers a day patient states see was sitting on the commode and urinating next thing seen you see was in the bathtub, patient denies any prodrome symptom no chest pain dizziness or palpitation, this has not happened before, see states see drinks 2 beers every day, emergency depart patient had a CT scan of the head essentially normal, CT scan of the cervical spine showed severe spondylosis without acute findings, CT scan of the abdomen and pelvis no acute injury, to further evaluate with CTA of the head and cardiac echo, patient does not appear to be dehydrated, will have a PT OT evaluate the patient and further recommendation to follow patient is admitted as an observation status Review of Systems Review of Systems: Gen.: Denies fevers or chills Eyes: Denies eye pain or visual change ENT: Denies congestion Respiratory: Denies shortness of breath or cough CV: Denies chest pain reports possible syncope GI: Denies abdominal pain nausea, emesis or diarrhea Musculoskeletal: Denies back pain or muscle pain Neuro: Reports general weakness Skin: Denies rash Except as documented, all other systems reviewed and negative [facility] Past Medical History Medical History Anal fissure Anemia Ankylosing spondylitis Anxiety B12 deficiency Bronchitis Closed nondisplaced fracture of proximal phalanx of lesser toe Constipation due to opioid therapy Depression Diabetes Diverticulitis Diverticulosis of colon (without mention of hemorrhage) Emphysema of lung Essential (primary) hypertension Fatty liver Gastro-esophageal reflux disease without esophagitis History of basal cell carcinoma (BCC) Macular degeneration Mixed hyperlipidemia Obstructive sleep apnea Osteoarthritis of left knee Peripheral neuropathy Psoriasis 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 Family History Mother Hypertension, Onset Age: 97 Father Family history of malignant neoplasm Family history of lung cancer, Onset Age: 94 Colon cancer Sibling Family history of blood dyscrasia Other Family history of arthritis Family history of seizure disorder No family history of cardiovascular disease No family history of diabetes mellitus No family history of hypertension Prediabetes Social History Social History Social History: The patient lives at home with her . She has smoked as much as 1.5 packs of cigarettes per day but quit in 2019. She had 59 year smoking history. Primary care physician: Dr. Dudley Coyne Code status: Full code Surrogate decision maker: Smoking packs
[2022-03-22 17:35] LABS: Troponin I < 0.012 ng/mL (0.000-0.034)
[2022-03-22] MEDS: GABAPENTIN 300 MG CAPSULE PO (17:45)
[2022-03-22] MEDS: FERROUS SULFATE 324 MG TABLET PO (17:46)
[2022-03-22 17:51] LABS: Glucose Point of Care 133 mg/dl (65-105)
[2022-03-22] MEDS: lamoTRIgine 100 MG TABLET PO (20:23)
[2022-03-22] MEDS: traZODone HCL 50 MG TABLET 100 MG PO (20:24)
[2022-03-22] MEDS: DOCUSATE SODIUM 100 MG CAPSULE PO (20:24)
[2022-03-22] MEDS: TIZANIDINE HCL 2 MG TABLET PO (20:25)
[2022-03-22] MEDS: amLODIPine BESYLATE 5 MG TABLET PO (20:26)
[2022-03-22] MEDS: diphenhydrAMINE HCl CAP 25 MG CAPSULE PO (20:36)
[2022-03-22] MEDS: FLUTICASONE PROPIONATE 0.05% NA SPR 16 GM BTL (*BKC) 1 SPRAY NASAL (21:50)
[2022-03-23] VITALS (10 sets, daily range): BP systolic 139–166; BP diastolic 73–82; PULSE 72–108; RESP 18; TEMP 36.3–36.4; O2SAT 93–95
--- NOTE | 2022-03-23 | ECHO_ITS ---
Patient Info Name: Blanca Nam Age: 76 years : 1945 Gender: Female Ht: 62 in Wt: 189 lbs BSA: 1.98 m2 HR: 75 bpm BP: 144 / 73 mmHg Technical Quality: Poor Exam Date: 03/23/2022 2:08 PM Exam Location: [facility] Patient Status: Outpatient Admit Date: 03/22/2022 Staff Ordering Physician: Darshana Allison MD [employer] Making Machine Operator: Sridhar Álvarez RDCS, RT Attending Provider: Dyan Olea DO Exam Type: CA echo doppler color flow Study Info Indications R55 - Syncope and collapse Complete two-dimensional, color flow and Doppler transthoracic echocardiogram is performed. Summary 1. Complete two-dimensional, color flow and Doppler transthoracic echocardiogram is performed. 2. Technically suboptimal study due to poor sonographic images. 3. Left ventricular chamber dimension is normal. 4. Left ventricular systolic function is normal, estimated at 60-65%. 5. There is mildly increased left ventricular wall thickness. 6. The left ventricular diastolic function is grade I diastolic dysfunction. 7. E/e' 9 is minimally elevated. Left Ventricle Technically suboptimal study due to poor sonographic images. E/e' 9 is minimally elevated. Left ventricular chamber dimension is normal. Left ventricular systolic function is normal, estimated at 60-65%. There is mildly increased left ventricular wall thickness. The left ventricular diastolic function is grade I diastolic dysfunction. Right Ventricle Right ventricular chamber dimension is not well visualized. Left Atria Left atrial chamber dimension is normal. Right Atria Right atrial chamber dimension is not well visualized. Aortic Valve The aortic valve is trileaflet. There is no aortic valve stenosis. There is no aortic valve regurgitation. Pulmonic Valve There is no pulmonic regurgitation. Mitral Valve There is no mitral valve stenosis. There is no mitral valve regurgitation. Tricuspid Valve There is no tricuspid valve regurgitation. Pericardium/Pleural There is no pericardial effusion. Inferior Vena Cava Normal inferior vena cava with >50% collapse upon inspiration consistent with normal right atrial pressure, 5 mmHg. Aorta The aortic root size at the sinus of Valsalva is normal. Left Ventricular Outflow Tract Name Value Normal LVOT 2D LVOT Diameter 2.1 cm LVOT Doppler LVOT Peak Gradient 3 mmHg LVOT Mean Gradient 1 mmHg LVOT VTI 16 cm LVOT VTI/AV VTI Ratio 0.8 LVOT Stroke Volume 56 ml Mitral Valve Name Value Normal MV Doppler MV Decel Mif[place] 206 cm/s2 MV PHT 62 ms MV Area (PHT) 3.6 cm2 4.0-5.0 MV Diastolic Function
[2022-03-23] MEDS: ACETAMINOPHEN 500 MG TABLET 1000 MG PO ×3 (06:13→20:50)
[2022-03-23 06:25] LABS: Basophils Percent Auto 0.4 % (0.2-1.2); Eosinophils Absolute Auto 0.1 K/mm3 (0-0.3); Eosinophils Percent Auto 1.3 % (0-4.4); Hematocrit 39.4 % (37.0-47.0); Immature Granulocyte Absolute 0.02 K/mm3 (0.00-0.031); Immature Granulocyte Percent A 0.4 % (0-0.5); Lymphocytes Absolute Auto 1.44 K/mm3 (0.9-3.2); Lymphocytes Percent Auto 26.9 % (18.3-44.2); Mean Corpuscular Hemoglobin 31.5 pg (26-34); Mean Corpuscular Volume 95.4 fl (80-100); Mean Platelet Volume 9.9 fl (7.4-10.4); Monocytes Absolute Auto 0.6 K/mm3 (0.1-0.6); Monocytes Percent Auto 10.5 % (2.6-8.5); Neutrophils Absolute Auto 3.2 K/mm3 (1.3-6.7); Neutrophils Percent Auto 60.5 % (45.5-73.1); Platelet Count Result 256 k/mm3 (150-375); Red Blood Count 4.13 M/mm3 (4.2-5.4); Red Cell Distribution Width 17.2 % (11.5-14.5); White Blood Count 5.4 K/mm3 (4.5-10.0)
[2022-03-23 06:30] LABS: Alanine Aminotransferase 17 U/L (6-35); Albumin Level 3.8 g/dL (3.5-5.1); Alkaline Phosphatase 112 U/L (38-126); Anion Gap 8 mmol/L (8-16); Aspartate Amino Transferase 20 U/L (14-36); Bilirubin,Total 0.5 mg/dL (0.2-1.3); Blood Urea Nitrogen 9 mg/dL (7-17); Calcium 8.9 mg/dL (8.4-10.2); Carbon Dioxide 28 mmol/L (22-30); Chloride 102 mmol/L (98-107); Estimated CRCL calculation 69 ml/min; Estimated Glomerular Filt Rate > 60; Glucose 182 mg/dL (65-110); Magnesium 2.1 mg/dL (1.6-2.3); Potassium 3.5 mmol/L (3.4-5.0); Sodium 138 mmol/L (137-145)
[2022-03-23 09:06] LABS: Glucose Point of Care 189 mg/dl (65-105)
[2022-03-23] MEDS: GABAPENTIN 300 MG CAPSULE PO ×3 (09:33→17:10)
[2022-03-23] MEDS: lamoTRIgine 100 MG TABLET PO ×2 (09:33→20:41)
[2022-03-23] MEDS: OPTI-GEN TAB 1 TABLET PO (09:33)
[2022-03-23] MEDS: CHOLECALCIFEROL 1,000 UNITS TABLET 2000 UNITS PO (09:33)
[2022-03-23] MEDS: ZINC SULFATE 220 MG CAPSULE PO (09:33)
[2022-03-23] MEDS: metFORMIN HCL XR 500 MG TAB.SR.24H PO (09:33)
[2022-03-23] MEDS: FOLIC ACID 1 MG TABLET PO (09:33)
[2022-03-23] MEDS: ASCORBIC ACID 500 MG TABLET PO (09:33)
[2022-03-23] MEDS: FERROUS SULFATE 324 MG TABLET PO ×2 (09:34→17:10)
[2022-03-23] MEDS: DOCUSATE SODIUM 100 MG CAPSULE PO ×2 (09:34→20:42)
[2022-03-23] MEDS: METOPROLOL SUCCINATE EXT REL 100 MG TABCR PO (09:34)
[2022-03-23] MEDS: DULoxetine HCL 60 MG CAPSULE.DR 120 MG PO (09:34)
[2022-03-23] MEDS: PANTOPRAZOLE 40 MG TABLET PO (09:34)
[2022-03-23] MEDS: ASPIRIN 81 MG CHEWABLE TABLET PO (09:35)
[2022-03-23] MEDS: THIAMINE HCL 100 MG TABLET PO (09:35)
[2022-03-23] MEDS: FLUTICASONE PROPIONATE 0.05% NA SPR 16 GM BTL (*BKC) 1 SPRAY NASAL ×2 (09:40→20:42)
--- NOTE | 2022-03-23 11:46 | PM.IMPN ---
Progress Note: A&P Assessment and Plan (1) Syncope: Code(s): R55 - Syncope and collapse Status: Acute Assessment and Plan: ED-HPI:Patient presents emergency department from home via EMS for a fall.? Patient states she was sitting on the toilet urinating when she fell over into the bathtub she is unsure if she passed out or simply fell states that she was sitting and was not attempting to stand.? She states she has been feeling more weak and lightheaded today she denies any recent illness she denies any fevers or chills chest pain shortness of breath abdominal pain nausea or vomiting.? Patient states she did have several beers this evening and does drink several beers a day patient states see was sitting on the commode and urinating next thing seen you see was in the bathtub, patient denies any prodrome symptom no chest pain dizziness or palpitation, this has not happened before, see states see drinks 2 beers every day, emergency depart patient had a CT scan of the head essentially normal, CT scan of the cervical spine showed severe spondylosis without acute findings, CT scan of the abdomen and pelvis no acute injury, to further evaluate with CTA of the head and cardiac echo, patient does not appear to be dehydrated, will have a PT OT evaluate the patient and further recommendation to follow. 03/23/2022 interval history: patient with syncopal episode with collapse CT scan of the head did not show any acute injury further evaluate patient had a CTA of the brain there was no stenosis of any vessel, cardiac echo is pending, will have PT OT evaluate the, patient, patient will benefit going to acute rehab and further recommendation to follow. (2) Frequent falls: Code(s): R29.6 - Repeated falls Status: Acute Assessment and Plan: patient states see has had several falls no significant and no prodromes, will have a PT OT evaluate the patient further recommendation to (3) Diabetes mellitus: Qualifiers: Diabetes mellitus type: type 2 Diabetes mellitus roasterman insulin use: without roasterman use Diabetes mellitus complication status: with hyperglycemia Qualified Code(s): E11.65 - Type 2 diabetes mellitus with hyperglycemia Code(s): E11.9 - Type 2 diabetes mellitus without complications Status: Acute (4) Anxiety: Code(s): F41.9 - Anxiety disorder, unspecified Status: Acute Assessment and Plan: continue home regimen and monitor Plan will continue home regimen and monitor with sliding scale Subjective Date/time seen: 03/23/22 11:46 ED-HPI:Patient presents emergency department from home via EMS for a fall.? Patient states she was sitting on the toilet urinating when she fell over into the bathtub she is unsure if she passed out or simply fell states that she was sitting and was not attempting to stand.? She states she has been feeling more weak and lightheaded today she denies any recent illness she denies any fevers or chills chest pain shortness of breath abdominal pain nausea or vomiting.? Patient states she did have several beers this evening and does drink several beers a day patient states see was sitting on the commode and urinating next thing seen you see was in the bathtub, patient denies any prodrome symptom no chest pain dizziness or palpitation, this has not happened before, see states see drinks 2 beers every day, emergency depart patient had a CT scan of the head essentially normal, CT scan of the cervical spine showed severe spondylosis without acute findings, CT scan of the abdomen and pelvis no acute injury, to further evaluate with CTA of the head and cardiac echo, patient does not appear to be dehydrated, will have a PT OT evaluate the patient and further recommendation to follow. 03/23/2022 interval history: patient with syncopal episode with collapse CT scan of the head did not show any acute injury further evaluate patient had a CTA of the br
[2022-03-23 12:40] LABS: Glucose Point of Care 165 mg/dl (65-105)
[2022-03-23] MEDS: MULTIVITAMINS /C LUTEIN (CENTRUM SILVER) TABLET *BKC 1 TAB PO (13:40)
[2022-03-23 16:58] LABS: Glucose Point of Care 153 mg/dl (65-105)
[2022-03-23] MEDS: traZODone HCL 50 MG TABLET 100 MG PO (20:41)
[2022-03-23] MEDS: TIZANIDINE HCL 2 MG TABLET PO (20:41)
[2022-03-23] MEDS: amLODIPine BESYLATE 5 MG TABLET PO (20:41)
[2022-03-23] MEDS: diphenhydrAMINE HCl CAP 25 MG CAPSULE PO (20:46)
[2022-03-24] VITALS: PULSE 61
[2022-03-24 04:00] VITALS: PULSE 60
[2022-03-24 05:18] VITALS: BP 137/80; PULSE 68; RESP 18; TEMP 36.3; O2SAT 97
[2022-03-24] MEDS: ACETAMINOPHEN 500 MG TABLET 1000 MG PO (06:31)
[2022-03-24 06:52] LABS: Hematocrit 36.9 % (37.0-47.0); Hemoglobin 12.1 g/dL (12.0-15.0); Mean Corpuscular HGB Conc 32.8 g/dl (32-36); Mean Corpuscular Hemoglobin 31.5 pg (26-34); Mean Corpuscular Volume 96.1 fl (80-100); Mean Platelet Volume 9.9 fl (7.4-10.4); Platelet Count Result 225 k/mm3 (150-375); Red Blood Count 3.84 M/mm3 (4.2-5.4); Red Cell Distribution Width 16.7 % (11.5-14.5); White Blood Count 5.2 K/mm3 (4.5-10.0)
[2022-03-24 07:01] LABS: Anion Gap 5 mmol/L (8-16); Blood Urea Nitrogen 13 mg/dL (7-17); Carbon Dioxide 33 mmol/L (22-30); Chloride 99 mmol/L (98-107); Estimated CRCL calculation 60 ml/min; Estimated Glomerular Filt Rate > 60; Glucose 155 mg/dL (65-110); Magnesium 2.1 mg/dL (1.6-2.3); Potassium 3.5 mmol/L (3.4-5.0); Sodium 137 mmol/L (137-145)
[2022-03-24 08:00] VITALS: PULSE 67
[2022-03-24 08:09] LABS: Glucose Point of Care 165 mg/dl (65-105)
[2022-03-24] MEDS: THIAMINE HCL 100 MG TABLET PO (08:14)
[2022-03-24] MEDS: metFORMIN HCL XR 500 MG TAB.SR.24H PO (08:14)
[2022-03-24] MEDS: METOPROLOL SUCCINATE EXT REL 100 MG TABCR PO (08:14)
[2022-03-24] MEDS: lamoTRIgine 100 MG TABLET PO (08:14)
[2022-03-24] MEDS: OPTI-GEN TAB 1 TABLET PO (08:14)
[2022-03-24] MEDS: ZINC SULFATE 220 MG CAPSULE PO (08:15)
[2022-03-24] MEDS: PANTOPRAZOLE 40 MG TABLET PO (08:15)
[2022-03-24] MEDS: GABAPENTIN 300 MG CAPSULE PO (08:15)
[2022-03-24] MEDS: ASCORBIC ACID 500 MG TABLET PO (08:15)
[2022-03-24] MEDS: FERROUS SULFATE 324 MG TABLET PO (08:15)
[2022-03-24] MEDS: DULoxetine HCL 60 MG CAPSULE.DR 120 MG PO (08:15)
[2022-03-24] MEDS: ASPIRIN 81 MG CHEWABLE TABLET PO (08:15)
[2022-03-24] MEDS: MULTIVITAMINS /C LUTEIN (CENTRUM SILVER) TABLET *BKC 1 TAB PO (08:15)
[2022-03-24] MEDS: CHOLECALCIFEROL 1,000 UNITS TABLET 2000 UNITS PO (08:15)
[2022-03-24] MEDS: FLUTICASONE PROPIONATE 0.05% NA SPR 16 GM BTL (*BKC) 1 SPRAY NASAL (08:15)
[2022-03-24] MEDS: FOLIC ACID 1 MG TABLET PO (08:15)
[2022-03-24] MEDS: ENOXAPARIN 40 MG/0.4 ML SYRINGE SUB-Q (08:16)
--- NOTE | 2022-03-24 11:07 | PM.IMPN ---
Progress Note: A&P Assessment and Plan (1) Syncope: Code(s): R55 - Syncope and collapse Status: Acute Assessment and Plan: ED-HPI:Patient presents emergency department from home via EMS for a fall.? Patient states she was sitting on the toilet urinating when she fell over into the bathtub she is unsure if she passed out or simply fell states that she was sitting and was not attempting to stand.? She states she has been feeling more weak and lightheaded today she denies any recent illness she denies any fevers or chills chest pain shortness of breath abdominal pain nausea or vomiting.? Patient states she did have several beers this evening and does drink several beers a day patient states see was sitting on the commode and urinating next thing seen you see was in the bathtub, patient denies any prodrome symptom no chest pain dizziness or palpitation, this has not happened before, see states see drinks 2 beers every day, emergency depart patient had a CT scan of the head essentially normal, CT scan of the cervical spine showed severe spondylosis without acute findings, CT scan of the abdomen and pelvis no acute injury, to further evaluate with CTA of the head and cardiac echo, patient does not appear to be dehydrated, will have a PT OT evaluate the patient and further recommendation to follow. 03/23/2022 interval history: patient with syncopal episode with collapse CT scan of the head did not show any acute injury further evaluate patient had a CTA of the brain there was no stenosis of any vessel, cardiac echo is pending, will have PT OT evaluate the, patient, patient will benefit going to acute rehab and further recommendation to follow. (2) Frequent falls: Code(s): R29.6 - Repeated falls Status: Acute Assessment and Plan: patient states see has had several falls no significant and no prodromes, will have a PT OT evaluate the patient further recommendation to (3) Diabetes mellitus: Qualifiers: Diabetes mellitus type: type 2 Diabetes mellitus telegraph messenger insulin use: without telegraph messenger use Diabetes mellitus complication status: with hyperglycemia Qualified Code(s): E11.65 - Type 2 diabetes mellitus with hyperglycemia Code(s): E11.9 - Type 2 diabetes mellitus without complications Status: Acute (4) Anxiety: Code(s): F41.9 - Anxiety disorder, unspecified Status: Acute Assessment and Plan: continue home regimen and monitor Plan will continue home regimen and monitor with sliding scale Subjective Date/time seen: 03/24/22 11:07 Exam Narrative: moderately obese Patient is comfortable, NAD HEENT: eyes are clear and none icteric LUNGS: normal respiratory effort ABD: distended Lower extremities: no edema SKIN: nonjaundiced Neuro: grossly intact. Objective Data Vital Signs Vital Signs: Vital Signs - 24 hr 03/23/22 11:20 03/23/22 14:00 03/23/22 12:00 Temperature 97.4 F L Pulse Rate 73 83 Respiratory Rate 18 Blood Pressure 139/79 Pulse Oximetry 95 Oxygen Delivery Room Air 03/23/22 16:00 03/23/22 21:28 03/23/22 20:00 Temperature 97.4 F L Pulse Rate 80 76 72 Respiratory Rate 18 Blood Pressure 166/82 H Pulse Oximetry 93 Oxygen Delivery 03/23/22 20:00 03/24/22 00:00 03/24/22 04:00 Temperature Pulse Rate 76 61 60 Respiratory Rate 18 Blood Pressure Pulse Oximetry 93 Oxygen Delivery Room Air 03/24/22 05:18 03/24/22 08:00 Temperature 97.3 F L Pulse Rate 68 67 Respiratory Rate 18 Blood Pressure 137/80 Pulse Oximetry 97 Oxygen Delivery Intake/Output Intake/Output: Intake & Output 03/21/22 03/22/22 03/23/22 03/24/22 23:59 23:59 23:59 23:59 Intake Total 1750 1750 680 Output Total 500 Balance 1750 1250 680 Meds/Results Medications: Active Medications Generic Name Dose Route Start Last Admin Trade Name Freq PRN Reason Stop Dose Admin Acetaminophen
--- NOTE | 2022-03-24 11:25 | PM.DS ---
DS: Admitting Diagnosis Discharge Date 03/24/2022 Admitting Diagnosis syncopal episode with collapse DS: Discharge Diagnosis Discharge Diagnosis (1) Syncope: Code(s): R55 - Syncope and collapse Status: Acute (2) Frequent falls: Code(s): R29.6 - Repeated falls Status: Acute (3) Diabetes mellitus: Qualifiers: Diabetes mellitus type: type 2 Diabetes mellitus retirement insulin use: without intermediate card tender use Diabetes mellitus complication status: with hyperglycemia Qualified Code(s): E11.65 - Type 2 diabetes mellitus with hyperglycemia Code(s): E11.9 - Type 2 diabetes mellitus without complications Status: Acute (4) Anxiety: Code(s): F41.9 - Anxiety disorder, unspecified Status: Acute DS: Summary Hospital Course Reason for hospitalization: Chief Complaint: ?syncopal episode with collapse Narrative: ED-HPI:Patient presents emergency department from home via EMS for a fall.? Patient states she was sitting on the toilet urinating when she fell over into the bathtub she is unsure if she passed out or simply fell states that she was sitting and was not attempting to stand.? She states she has been feeling more weak and lightheaded today she denies any recent illness she denies any fevers or chills chest pain shortness of breath abdominal pain nausea or vomiting.? Patient states she did have several beers this evening and does drink several beers a day ?patient states see was sitting on the commode? and urinating next thing seen you see was in the bathtub,? patient denies any prodrome symptom no chest pain dizziness or palpitation, this has not happened before, see states see drinks 2 beers every day, ?emergency depart patient had a CT scan of the head essentially normal, CT scan of the? cervical spine showed severe?spondylosis without acute findings,? CT scan of the abdomen and pelvis no acute injury, to further evaluate with CTA of the head and cardiac echo, patient does not appear to be dehydrated, will have a PT OT evaluate the patient and further recommendation to follow Hospital Course: patient with syncopal episode with collapse CT scan of the head did not show any acute injury further evaluate patient had a CTA of the brain there was no stenosis of any vessel,? cardiac echo Was essentially normal, had a PT OT evaluate the, patient,? patient remains clinically stable will discharge the patient home today with home health and will follow up with her primary care. Time Spent with Patient Time attestation: Total time spent providing and/or coordinating discharge services: Exam Narrative: ?moderately obese Patient is comfort able, NAD HEENT: e yes are clear and none icteric LUNGS : normal respirato ry effort ABD: dis tended Lower extre mities: no edema S KIN: nonjaundiced Neuro: grossly int act. DS: Data Data Completed and Pending Labs on day of discharge: Labs from last 24 hours 03/24/22 03/24/22 03/24/22 07:59 05:59 05:59 WBC 5.2 RBC 3.84 L Hgb 12.1 Hct 36.9 L MCV 96.1 MCH 31.5 MCHC 32.8 RDW 16.7 H Plt Count 225 MPV 9.9 Sodium 137 Potassium 3.5 Chloride 99 Carbon Dioxide 33 H Anion Gap 5 L BUN 13 Creatinine 0.70 Estim Creat Clear Calc 60 Estimated GFR > 60 Glucose 155 H POC Capillary Glucose 165 H Calcium 9.0 Magnesium 2.1 03/23/22 03/23/22 16:49 12:37 WBC RBC Hgb Hct MCV MCH MCHC RDW Plt Count MPV Sodium Potassium Chloride Carbon Dioxide Anion Gap BUN Creatinine Estim Creat Clear Calc Estimated GFR Glucose POC Capillary Glucose 153 H 165 H Calcium Magnesium Discharge Plan Discharge Attending physician on discharge: Darshana Allison Consulting providers: Tulio Sharp ; Singh Santa ; Kamaljit Badillo ; Alfredo Wright Discharging Clinician: Darshana Allison Patient Dis
== END 2022-03-24 12:43 | disposition home health service (06) ==
LOC: ANHED 03-22 06:55 → ANH3MEDSUR 03-22 23:27
PROVIDERS: Internal Medicine; Admitting Provider Family Medicine; Emergency Provider Emergency Medicine; PCP Emergency Medicine; Visit Provider Family Medicine
DX: R53.1 Weakness (principal); R55 Syncope and collapse; R29.6 Repeated falls; E11.65 Type 2 diabetes mellitus with hyperglycemia; E11.42 Type 2 diabetes mellitus with diabetic polyneuropathy; F41.9 Anxiety disorder, unspecified; M47.814 Spondylosis without myelopathy or radiculopathy, thoracic region; M16.0 Bilateral primary osteoarthritis of hip; Z20.822 Contact with and (suspected) exposure to COVID-19; R94.31 Abnormal electrocardiogram [ECG] [EKG]; D64.9 Anemia, unspecified; E53.8 Deficiency of other specified B group vitamins; F32.A Depression, unspecified; K57.92 Diverticulitis of intestine, part unspecified, without perforation or abscess without bleeding; J43.9 Emphysema, unspecified; I10 Essential (primary) hypertension; K76.0 Fatty (change of) liver, not elsewhere classified; H35.30 Unspecified macular degeneration; E78.2 Mixed hyperlipidemia; G47.33 Obstructive sleep apnea (adult) (pediatric); Z87.891 Personal history of nicotine dependence; Z79.84 Long term (current) use of oral hypoglycemic drugs; Z79.82 Long term (current) use of aspirin; Z79.51 Long term (current) use of inhaled steroids; Z79.891 Long term (current) use of opiate analgesic; Z79.899 Other long term (current) drug therapy
CPT/HCPCS: 36415; 51701; 70450; 70496; 71045; 72125; 72128; 72170; 74176; 80048; 80053; 80307; 81003; 82550; 82948; 83735; 84484; 85025; 85027; 85380; 85610; 85730; 93005; 93306; 96360; 96372; 97110; 97116; 97161; 97165; 99285; A9270; C9803; G0378; J1650; J7030; Q9967; U0003; U0005

== ENCOUNTER 2022-04-12 09:29 | Emergency (ER) | payer MEDICARE, OTHER, SELFPAY ==
[2022-04-12] VITALS (8 sets, daily range): BP systolic 165–188; BP diastolic 84–95; PULSE 92–104; RESP 15–18; TEMP 36.4; O2SAT 93–100
--- NOTE | ~2022-04-12 | CT_ITS ---
EXAMINATION: CT abdomen pelvis w con INDICATION: Left-sided abdominal pain TECHNIQUE: Computed tomographic images of the abdomen and pelvis were obtained after the administrati on of 100 cc of Omnipaque 300 intravenous contrast. The dose-length product (DLP) was 754.65 mGy-cm. Automated exposure control and iterative reconstruction technique were employed. COMPARISON: 03/22/2022 FINDINGS: Minimal dependent atelectasis is present in the lung bases. The heart size is normal. The l iver is diffusely low in attenuation when compared with the spleen, consistent with hepatic steatosis . The spleen, pancreas, and adrenal glands are normal. There is mild distention of the gallbladder wh ich may reflect fasting state. There is a 1.9 cm proteinaceous cyst of the left kidney. Simple cysts of the right kidney measure up to 6 mm. There is calcified atherosclerosis of the aorta and many of t he other arteries. No pathologically enlarged abdominal or pelvic lymph nodes are identified. There i s no free intraperitoneal gas or evidence of bowel obstruction. A calcified uterine fibroid is noted. There is a small amount of fluid in the endometrial canal. There is severe lumbar spondylosis. There is mild wall thickening of the urinary bladder. IMPRESSION: 1. Mild wall thickening of the urinary bladder which could reflect cystitis. Recommend correlation wi th urinalysis. Reviewed, dictated and finalized at location B. IMPRESSION: 1. Mild wall thickening of the urinary bladder which could reflect cystitis. Re commend correlation with urinalysis.
--- NOTE | 2022-04-12 09:41 | PC.NURSE ---
EMS administered 25mcg Fentanyl and 4mg Zofran en route.
[2022-04-12 10:06] LABS: Basophils Percent Auto 0.4 % (0.2-1.2); Eosinophils Percent Auto 0.3 % (0-4.4); Hematocrit 42.4 % (37.0-47.0); Hemoglobin 13.8 g/dL (12.0-15.0); Immature Granulocyte Absolute 0.03 K/mm3 (0.00-0.031); Immature Granulocyte Percent A 0.4 % (0-0.5); Lymphocytes Absolute Auto 1.16 K/mm3 (0.9-3.2); Lymphocytes Percent Auto 15.2 % (18.3-44.2); Mean Corpuscular HGB Conc 32.5 g/dl (32-36); Mean Corpuscular Hemoglobin 31.7 pg (26-34); Mean Corpuscular Volume 97.5 fl (80-100); Mean Platelet Volume 9.7 fl (7.4-10.4); Monocytes Absolute Auto 0.7 K/mm3 (0.1-0.6); Monocytes Percent Auto 9.3 % (2.6-8.5); Neutrophils Absolute Auto 5.7 K/mm3 (1.3-6.7); Neutrophils Percent Auto 74.4 % (45.5-73.1); Platelet Count Result 243 k/mm3 (150-375); Red Blood Count 4.35 M/mm3 (4.2-5.4); Red Cell Distribution Width 13.6 % (11.5-14.5); White Blood Count 7.6 K/mm3 (4.5-10.0)
--- NOTE | 2022-04-12 10:16 | PC.NURSE ---
Pt asked to provide urine sample; pt unable to void at this time.
[2022-04-12 10:17] LABS: Alanine Aminotransferase 20 U/L (6-35); Albumin Level 4.3 g/dL (3.5-5.1); Alkaline Phosphatase 112 U/L (38-126); Anion Gap 10 mmol/L (8-16); Aspartate Amino Transferase 25 U/L (14-36); Bilirubin,Total 0.4 mg/dL (0.2-1.3); Blood Urea Nitrogen 7 mg/dL (7-17); Calcium 9.7 mg/dL (8.4-10.2); Carbon Dioxide 29 mmol/L (22-30); Chloride 100 mmol/L (98-107); Estimated CRCL calculation 81 ml/min; Estimated Glomerular Filt Rate > 60; Glucose 178 mg/dL (65-110); Lipase 32 U/L (23-300); Sodium 139 mmol/L (137-145)
[2022-04-12 10:35] LABS: Lactic Acid Reflex 3.1 mmol/L (0.7-2.0)
--- NOTE | 2022-04-12 10:44 | ED.ABDPAIN ---
HPI - Abdominal Pain General Chief Complaint: Abdominal Pain Stated Complaint: LLQ pain Time Seen by Provider: 04/12/22 09:31 Source: RN notes reviewed History of Present Illness HPI narrative: Patient presents emergency department from home for left-sided abdominal pain. Patient states pain is been ongoing for the past 3 weeks. Pain is located left side the abdomen does not radiate described as aching in nature. She denies any fevers or chills, chest pain, shortness of breath, nausea vomiting diarrhea or any other symptoms. States she did not take any medication for the pain today Related Data Home Medications Medication Instructions Recorded Confirmed cholecalciferol (vitamin D3) 50 50 mcg PO DAILY 06/28/20 03/22/22 mcg (2,000 unit) capsule atoobzxhttjg-cyskfmjt-mcrxwt tablet 1 tablet PO DAILY 06/28/20 03/22/22 [facility] 03/08/[facility] 03/22/22 Lite Strips) secukinumab 150 mg/mL subcutaneous 150 mg subcut MONTHLY 05/09/21 03/22/22 syringe (Cosentyx) tizanidine 2 mg tablet 2 mg PO HS 07/14/21 03/22/22 amlodipine 5 mg tablet 5 mg PO HS 07/15/21 03/22/22 metformin 500 mg tablet,extended 500 mg PO DAILY 07/15/21 03/22/22 release 24 hr biotin 5,000 mcg disintegrating 5,000 mcg PO DAILY 08/18/21 03/22/22 tablet diphenhydramine HCl 25 mg capsule 25 mg PO HS 08/18/21 03/22/22 (Benadryl) vit C 250 mg-vit E 90 mg-zinc 40 1 tablet PO DAILY 08/18/21 03/22/22 mg-copper 1 iw-kymcke-dlwjxi capsule (PreserVision AREDS-2) trazodone 50 mg tablet 100 mg PO HS 09/16/21 03/22/22 ferrous sulfate 325 mg (65 mg 325 mg PO BID 12/28/21 03/22/22 iron) tablet Acetaminophen Extra Strength 1,000 mg PO TID 03/22/22 03/22/22 ascorbic acid (vitamin C) 500 mg 500 mg PO DAILY 03/22/22 03/22/22 tablet (Vitamin C) duloxetine 60 mg capsule,delayed 120 mg PO DAILY 03/22/22 03/22/22 release gabapentin 300 mg capsule 300 mg PO TID 03/22/22 03/22/22 metoprolol succinate 100 mg 100 mg PO DAILY 03/22/22 03/22/22 tablet,extended release 24 hr pantoprazole 40 mg tablet,delayed 40 mg PO DAILY 03/22/22 03/22/22 release tramadol 50 mg tablet 50 mg PO TID PRN Pain Rated 4-6 03/22/22 03/22/22 Allergies Allergy/AdvReac Type Severity Reaction Status Date / Time cephalexin Allergy Severe Anaphylaxis Verified 04/12/22 09:35 Review of Systems Review of Systems: Gen.: Denies fevers or chills ENT: Denies congestion Respiratory: Denies shortness of breath or cough CV: See HPI denies burning, urgency, frequency or hematuria Musculoskeletal: Denies back pain or muscle pain Neuro: Denies numbness, tingling, weakness or focal weakness Skin: Denies rash Except as documented, all other systems reviewed and negative PMFSH Past Medical History Medical History Anal fissure Anemia Ankylosing spondylitis Anxiety B12 deficiency Bronchitis Closed nondisplaced fracture of proximal phalanx of lesser toe Constipation due to opioid therapy Depression Diabetes Diverticulitis Diverticulosis of colon (without mention of hemorrhage) Emphysema of lung Essential (primary) hypertension Fatty liver Gastro-esophageal reflux disease without esophagitis History of basal cell carcinoma (BCC) Macular degeneration Mixed hyperlipidemia Obstructive sleep apnea Osteoarthritis of left knee Peripheral neuropathy Psoriasis 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
[2022-04-12] MEDS: SODIUM CHLORIDE 0.9% IV 1,000 ML 999 ML IV CONT (11:12)
[2022-04-12 12:35] LABS: Appearance Urine Clear (Clear); Bilirubin Urine Negative (Negative); Blood Urine Negative (Negative); Color Urine Yellow (Yellow); Glucose Urine UA Negative (Negative); Ketones Urine Negative (Negative); Leukocyte Esterase Ur Negative LEU/UL (Negative); Nitrate Urine Negative (Negative); Protein Urine 1+ mg/dL (Negative); Urobilinogen Urine 0.2 mg/dL (<2.0); pH Urine 7.5 (5.0-9.0)
[2022-04-12 12:44] LABS: Mucus Urine Rare /lpf; RBC Urine 0-2 /hpf (0-2); Squamous Epithelial Cell Urine Few /hpf (Few); WBC Urine 0-3 /hpf
[2022-04-12 12:47] LABS: Add Urine Microscopic? YES
[2022-04-12 13:04] LABS: Reflex Lactic Acid Yes or No Add Lactic
[2022-04-12 13:13] LABS: INR 1.1; Partial Thromboplastin Time 29.1 SECONDS (22.3-36.8); Prothrombin Time 13.6 Seconds (11.1-14.7)
--- NOTE | 2022-04-12 13:13 | PC.NURSE ---
Pt denies any pain relief from GI cocktail. Dr. Merino made aware.
[2022-04-12] MEDS: MORPHINE SULFATE (*CRX) 2 MG/ML INJ IV PUSH (13:53)
[2022-04-12 14:20] LABS: Lactic Acid 1.1 mmol/L (0.7-2.0)
[2022-04-12] MEDS: PANTOPRAZOLE SODIUM IV 40 MG VIAL IV PUSH (15:06)
== END 2022-04-12 16:05 | disposition home or self-care (01) ==
PROVIDERS: Emergency Provider Emergency Medicine; PCP Emergency Medicine
DX: R10.9 Unspecified abdominal pain (principal); J43.9 Emphysema, unspecified; I10 Essential (primary) hypertension; E11.42 Type 2 diabetes mellitus with diabetic polyneuropathy; E78.2 Mixed hyperlipidemia; E53.8 Deficiency of other specified B group vitamins; H35.30 Unspecified macular degeneration; K21.9 Gastro-esophageal reflux disease without esophagitis; G47.33 Obstructive sleep apnea (adult) (pediatric); M05.879 Other rheumatoid arthritis with rheumatoid factor of unspecified ankle and foot; M17.12 Unilateral primary osteoarthritis, left knee; Z86.2 Personal history of diseases of the blood and blood-forming organs and certain disorders involving the immune mechanism; Z87.891 Personal history of nicotine dependence; Z85.828 Personal history of other malignant neoplasm of skin; Z98.42 Cataract extraction status, left eye; Z98.41 Cataract extraction status, right eye; Z96.1 Presence of intraocular lens; Z79.84 Long term (current) use of oral hypoglycemic drugs
CPT/HCPCS: 36415; 74177; 80053; 81001; 83605; 83690; 85025; 85610; 85730; 96361; 96374; 96375; 99284; A9270; C9113; J2270; J7030; Q9967

== ENCOUNTER 2022-05-02 08:28 | Inpatient (IN) | payer MEDICARE, OTHER, SELFPAY ==
[2022-05-02] VITALS (18 sets, daily range): BP systolic 134–196; BP diastolic 74–98; PULSE 76–81; RESP 16–18; TEMP 36.2–37.2; O2SAT 91–100; BMI 33.5
--- NOTE | ~2022-05-02 | XR_ITS ---
EXAMINATION: XR shoulder LT min 2V DATE: 05/02/2022 09:16 INDICATION: Left shoulder pain post fall TECHNIQUE: AP internally and externally rotated, AP oblique externally rotated and transscapular Y vi ews of the left shoulder were obtained. COMPARISON: None FINDINGS: Normal alignment. No fracture.Mild to moderate osteoarthritis at the left glenohumeral joint with mi ld nonuniform joint space narrowing and small to moderate size marginal osteophytes along the humeral head and neck posterior to the inferior glenoid. Additional mild to moderate left acromioclavicular osteoarthritis. Soft tissues are unremarkable. Visual is portions of the left lung are clear. IMPRESSION: Mild to moderate osteoarthritis at the left acromioclavicular and glenohumeral joints. No acute osseo us abnormality. Reviewed, dictated and finalized at location A. IMPRESSION: Mild to moderate osteoarthritis at the left acromioclavicular and glenohumeral joints. No acute osseous abnormality.
--- NOTE | ~2022-05-02 | XR_ITS ---
XR chest 1V portable 05/02/2022 09:16 Indication: Status post fall. Trauma. Procedure: AP portable chest Comparison: 02/24/2022 and 09/17/2021 Findings: There is atherosclerosis and mild ectasia of the thoracic aorta. Heart size normal. No foca l air space disease, pulmonary edema, pleural effusion or suspected pneumothorax. There are degenerat doe changes of the left glenohumeral joint. No acute osseous abnormality. Impression: 1: No acute cardiopulmonary disease. Reviewed, dictated and finalized at location B. Impression: 1: No acute cardiopulmonary disease.
--- NOTE | ~2022-05-02 | CT_ITS ---
EXAMINATION: CT brain wo con DATE: 05/05/2022 20:37 INDICATION: weakness . TECHNIQUE: Computed tomography (CT) of the head was performed without intravenous contrast. The mA wa s adjusted according to patient size. Iterative reconstruction technique was employed. The dose-lengt h product was 605.33 mGy-cm. COMPARISON: 03/22/2022. FINDINGS: No acute intracranial hemorrhage or extra-axial fluid collection. No hydrocephalus, mass, or herniation. No acute ischemic infarct. Unremarkable dural venous sinus attenuation. No acute osseous abnormality. The aerated spaces are clear. Moderate atrophy and severe chronic white matter change. Atherosclerotic intracranial calcification. Bilateral basal ganglia calcification. Bilateral lens replacements. IMPRESSION: No acute intracranial process. Reviewed, dictated and finalized at location K.
--- NOTE | ~2022-05-02 | XR_ITS ---
EXAMINATION: XR pelvis 1-2V DATE: 05/02/2022 09:16 INDICATION: Buttock pain post fall TECHNIQUE: An anteroposterior view of the pelvis was obtained. COMPARISON: CT dated 04/12/2022 FINDINGS: Partially visualized lumbar dextroscoliosis and mild right lateral listhesis of L4 on L5. Severe lowe r lumbar spondylosis. Normal alignment in the pelvis. No fracture. Sensitivity for nondisplaced fract ure is decreased by body habitus. Mild left and mild to moderate right hip osteoarthritis. Heterotopi c ossicle in the pelvis. IMPRESSION: 1. No acute osseous abnormality. 2. Degenerative skeletal changes including severe lumbar spondylosis and mild left and mild to modera te right hip osteoarthritis. Reviewed, dictated and finalized at location A. IMPRESSION: 1. No acute osseous abnormality. 2. Degenerative skeletal changes including severe lumbar spondylosis and mild l eft and mild to moderate right hip osteoarthritis.
--- NOTE | ~2022-05-02 | XR_ITS ---
EXAMINATION: XR chest 1V portable DATE: 05/06/2022 11:18 INDICATION: Cough. TECHNIQUE: A single frontal view of the chest was obtained. COMPARISON: Chest single view 05/02/2022, CT abdomen and pelvis 04/12/2022 FINDINGS: The patient is rotated to her right. There is no pneumonia, pleural effusion, or pneumothor ax. The heart size is normal. IMPRESSION: 1. No acute cardiopulmonary disease. Reviewed, dictated and finalized at location A.
[2022-05-02] MEDS: HYDROcodone/acetaminophen (*CRX) 5-325 MG TABLET 1 TAB PO (08:59)
--- NOTE | 2022-05-02 09:35 | ED.FALL ---
HPI - Fall General Chief Complaint: Fall Stated Complaint: fall from wheelchair Time Seen by Provider: 05/02/22 08:30 History of Present Illness HPI Narrative: 76-year-old female who for the last 3-4 4 days has been having a cough, runny nose, and overall not feeling well, she tripped over an uneven floor and fell earlier today, landing onto her hip/lower back, states that she hurt her left shoulder but otherwise denies any pain anywhere else. Related Data Home Medications Medication Instructions Recorded Confirmed cholecalciferol (vitamin D3) 50 50 mcg PO DAILY 06/28/20 03/22/22 mcg (2,000 unit) capsule tnvudoczfwru-pbipxlul-wtyrwf tablet 1 tablet PO DAILY 06/28/20 03/22/22 [facility] 03/[facility] 03/22/22 Lite Strips) secukinumab 150 mg/mL subcutaneous 150 mg subcut MONTHLY 05/09/21 03/22/22 syringe (Cosentyx) tizanidine 2 mg tablet 2 mg PO HS 07/14/21 03/22/22 amlodipine 5 mg tablet 5 mg PO HS 07/15/21 03/22/22 metformin 500 mg tablet,extended 500 mg PO DAILY 07/15/21 03/22/22 release 24 hr biotin 5,000 mcg disintegrating 5,000 mcg PO DAILY 08/18/21 03/22/22 tablet diphenhydramine HCl 25 mg capsule 25 mg PO HS 08/18/21 03/22/22 (Benadryl) vit C 250 mg-vit E 90 mg-zinc 40 1 tablet PO DAILY 08/18/21 03/22/22 mg-copper 1 yo-xvwcyo-hxcbdl capsule (PreserVision AREDS-2) trazodone 50 mg tablet 100 mg PO HS 09/16/21 03/22/22 ferrous sulfate 325 mg (65 mg 325 mg PO BID 12/28/21 03/22/22 iron) tablet Acetaminophen Extra Strength 1,000 mg PO TID 03/22/22 03/22/22 ascorbic acid (vitamin C) 500 mg 500 mg PO DAILY 03/22/22 03/22/22 tablet (Vitamin C) gabapentin 300 mg capsule 300 mg PO TID 03/22/22 03/22/22 metoprolol succinate 100 mg 100 mg PO DAILY 03/22/22 03/22/22 tablet,extended release 24 hr tramadol 50 mg tablet 50 mg PO TID PRN Pain Rated 4-6 03/22/22 03/22/22 Allergies Allergy/AdvReac Type Severity Reaction Status Date / Time cephalexin Allergy Severe Anaphylaxis Verified 05/02/22 11:23 Review of Systems Review of Systems: CONST: No fever. HEENT: sore throat C/V: No chest pain RESP: cough GI: No abdominal pain : No dysuria. M/S: Left shoulder pain SKIN: No rash. NEURO: [No headache or focal numbness or weakness] PSYCH: [No depression] [facility] Past Medical History Medical History Anal fissure Anemia Ankylosing spondylitis Anxiety B12 deficiency Bronchitis Closed nondisplaced fracture of proximal phalanx of lesser toe Constipation due to opioid therapy Depression Diabetes Diverticulitis Diverticulosis of colon (without mention of hemorrhage) Emphysema of lung Essential (primary) hypertension Fatty liver Gastro-esophageal reflux disease without esophagitis History of basal cell carcinoma (BCC) Macular degeneration Mixed hyperlipidemia Obstructive sleep apnea Osteoarthritis of left knee Peripheral neuropathy Psoriasis 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 Family History Mother Hypertension, Onset Age: 97 Father Family history of malignant neoplasm Family history of lung cancer, Onset Age: 94 Colon cancer Sibling Family history of blood dyscrasia Other Family history of arthritis Family history of seizure disorder No family history of cardiovascular disease No family history of diabetes mellitus N
[2022-05-02 10:31] LABS: Basophils Percent Auto 0.1 % (0.2-1.2); Eosinophils Absolute Auto 0.1 K/mm3 (0-0.3); Eosinophils Percent Auto 0.5 % (0-4.4); Hematocrit 39.2 % (37.0-47.0); Immature Granulocyte Absolute 0.07 K/mm3 (0.00-0.031); Immature Granulocyte Percent A 0.5 % (0-0.5); Lymphocytes Absolute Auto 1.02 K/mm3 (0.9-3.2); Lymphocytes Percent Auto 7.6 % (18.3-44.2); Mean Corpuscular HGB Conc 33.2 g/dl (32-36); Mean Corpuscular Hemoglobin 32.1 pg (26-34); Mean Corpuscular Volume 96.8 fl (80-100); Mean Platelet Volume 9.8 fl (7.4-10.4); Monocytes Absolute Auto 0.9 K/mm3 (0.1-0.6); Neutrophils Absolute Auto 11.3 K/mm3 (1.3-6.7); Neutrophils Percent Auto 84.3 % (45.5-73.1); Platelet Count Result 238 k/mm3 (150-375); Red Blood Count 4.05 M/mm3 (4.2-5.4); Red Cell Distribution Width 12.4 % (11.5-14.5); White Blood Count 13.5 K/mm3 (4.5-10.0)
[2022-05-02 10:35] LABS: SARS-CoV-2 RNA PCR Negative
[2022-05-02 10:38] LABS: Anion Gap 7 mmol/L (8-16); Blood Urea Nitrogen 7 mg/dL (7-17); Carbon Dioxide 32 mmol/L (22-30); Chloride 95 mmol/L (98-107); Estimated CRCL calculation 68 ml/min; Estimated Glomerular Filt Rate > 60; Glucose 147 mg/dL (65-110); Potassium 3.3 mmol/L (3.4-5.0); Sodium 134 mmol/L (137-145)
[2022-05-02] MEDS: LACTATED RINGERS 1,000 ML 999 ML IV CONT (11:33)
[2022-05-02 12:13] LABS: Appearance Urine Slightly Cloudy (Clear); Bilirubin Urine Negative (Negative); Blood Urine Negative (Negative); Color Urine Yellow (Yellow); Glucose Urine UA Negative (Negative); Ketones Urine Negative (Negative); Leukocyte Esterase Ur 1+ LEU/UL (Negative); Nitrate Urine Negative (Negative); Protein Urine Trace mg/dL (Negative); Urobilinogen Urine 0.2 mg/dL (<2.0); pH Urine 7.5 (5.0-9.0)
[2022-05-02 12:23] LABS: Add Urine Microscopic? YES; Amorphous Sediment Urine Few; Bacteria Urine Trace /hpf; Mucus Urine Rare /lpf; RBC Urine 0-2 /hpf (0-2); Squamous Epithelial Cell Urine Moderate /hpf (Few)
[2022-05-02 12:28] LABS: D Dimer 0.33 ug/mL (<0.48)
--- NOTE | 2022-05-02 13:41 | PC.NURSE ---
Called , left message informing of admission and room number.
--- NOTE | 2022-05-02 13:53 | PC.NURSE ---
This patient, Balnca Nam, was admitted to [facility] Surg Room 329-01. Patient/family oriented to hospital policies and general routines including ID bracelet, bed and alarms, visiting hours, pain management, procedures, bathroom and other care routines, personal items, smoking policy, room service/diet, and visiting hours. Information on how to activate the Rapid Response Team has been discussed. Patient/Family are encouraged to report perceived risks to care and to ask questions if they do not understand what they are told or what they should do.
--- NOTE | 2022-05-02 14:13 | PC.NURSE ---
Patient doesn't know what medications she is taking, states puts her meds together for her. Spoke with her (Misha) he will bring in a list of medications when he comes later today.
--- NOTE | 2022-05-02 15:40 | PM.IMHP ---
H&P: HPI History of Present Illness Date/Time: 05/02/22 15:40 Chief Complaint: Cough and rhinorrhea. Narrative: 76yo female with RA on immunosuppressive agent, DM, and severe left knee OA here for weakness and fall. Patient normally gets around with a walker at home. There have been times when the patient has to sit on the platform for walker and her has to push her around like a wheelchair. About a week or so ago, patient has developed increasing weakness. She has developed viral symptoms with cough worse at night rhinorrhea, sinus congestion and sore throat. Also having subjective fevers. Cough is nonproductive. She has been taking albuterol without benefit. Her has been pushing her around while the patient sits on the walker for the past week. There is a raised area on the floor that requires the patient to stand slightly so the walker can clear this bump. Today, when patient was standing slightly off the walker she fell landing on her buttock. She complained of left shoulder pain to the ED physician but currently she states she has no pain except for her chronic arthritic pain. There was no loss of consciousness. No head injury. Because of the weakness, patient was brought to the emergency room for evaluation. In the ED, patient was hypertensive at 190/98 otherwise vital signs were normal. White count was 13K. D-dimer was negative. Potassium was low at 3.3. Urinalysis was not consistent with UTI. COVID was negative. Chest x-ray was clear. Left shoulder x-ray showed moderate osteoarthritis. Pelvic x-ray showed no acute findings. She did have bilateral hip osteoarthritis. She was given 1 dose of [place] and admitted for further care. Review of Systems Review of Systems: Patient does have difficulty with swallowing due to esophageal stricture. She has been seen by GI locally and has been referred to a tertiary care center for further evaluation treatment for this. Patient also states that she has history of gastric ulcers. She does have shortness of breath that is more chronic. She denies any nausea, vomiting or diarrhea. She has been eating well. No dysuria or hematuria. No chest pain or palpitations. The GI doctor also is recommending the patient see ENT. Patient states that she has difficulty getting out all of these doctors appointments and frequently cancels them. Patient denies that she has sleep apnea. She states the left leg is normally bigger than the right. All systems reviewed & are unremarkable except as noted in HPI and below PMFSH Past Medical History Medical History Anal fissure Anemia Ankylosing spondylitis Anxiety B12 deficiency Bronchitis Closed nondisplaced fracture of proximal phalanx of lesser toe Constipation due to opioid therapy Depression Diabetes Diverticulitis Diverticulosis of colon (without mention of hemorrhage) Emphysema of lung Essential (primary) hypertension Fatty liver Gastro-esophageal reflux disease without esophagitis History of basal cell carcinoma (BCC) Macular degeneration Mixed hyperlipidemia Obstructive sleep apnea Osteoarthritis of left knee Peripheral neuropathy Psoriasis 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 Family History Mother Hypertension, Onset Age: 97 Father Family history
[2022-05-02 17:13] LABS: Glucose Point of Care 175 mg/dl (65-105)
[2022-05-02] MEDS: GABAPENTIN 300 MG CAPSULE PO (20:10)
[2022-05-02] MEDS: amLODIPine BESYLATE 5 MG TABLET PO (20:10)
[2022-05-02] MEDS: lamoTRIgine 100 MG TABLET PO (20:10)
[2022-05-02] MEDS: LORazepam (*CRX) 0.5 MG TABLET PO (20:10)
[2022-05-02] MEDS: traZODone HCL 50 MG TABLET 100 MG PO (20:10)
[2022-05-02] MEDS: traMADol HCL (*CRX) 50 MG TABLET PO (20:13)
[2022-05-03] VITALS (7 sets, daily range): BP systolic 153–171; BP diastolic 70–93; PULSE 75–107; RESP 15–20; TEMP 36.4–36.6; O2SAT 94–98; BMI 33.5
[2022-05-03 07:31] LABS: Anion Gap 10 mmol/L (8-16); Blood Urea Nitrogen 5 mg/dL (7-17); Calcium 9.2 mg/dL (8.4-10.2); Carbon Dioxide 29 mmol/L (22-30); Chloride 95 mmol/L (98-107); Creatine Kinase 41 U/L (30-135); Estimated CRCL calculation 80 ml/min; Estimated Glomerular Filt Rate > 60; Glucose 192 mg/dL (65-110); Magnesium 1.9 mg/dL (1.6-2.3); Phosphorus 3.7 mg/dL (2.5-4.5); Potassium 2.8 mmol/L (3.4-5.0); Sodium 134 mmol/L (137-145)
[2022-05-03 07:47] LABS: Glucose Point of Care 190 mg/dl (65-105)
--- NOTE | 2022-05-03 08:42 | PM.IMPN ---
Progress Note: A&P Assessment and Plan (1) Hypokalemia: Code(s): E87.6 - Hypokalemia Status: Acute (2) Weakness: Code(s): R53.1 - Weakness Status: Acute (3) Fall: Code(s): W19.XXXA - Unspecified fall, initial encounter Status: Acute (4) URI (upper respiratory infection): Code(s): J06.9 - Acute upper respiratory infection, unspecified Status: Acute (5) Diabetes mellitus: Qualifiers: Diabetes mellitus type: type 2 Diabetes mellitus terminal superintendent insulin use: without terminal superintendent use Diabetes mellitus complication status: with hyperglycemia Qualified Code(s): E11.65 - Type 2 diabetes mellitus with hyperglycemia Code(s): E11.9 - Type 2 diabetes mellitus without complications Status: Acute (6) Essential (primary) hypertension: Code(s): I10 - Essential (primary) hypertension Status: Acute (7) 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: Qualifiers: Laterality: unspecified laterality Qualified Code(s): M05.779 - Rheumatoid arthritis with rheumatoid factor of unspecified ankle and foot without organ or systems involvement Code(s): M05.779 - Rheumatoid arthritis with rheumatoid factor of unspecified ankle and foot without organ or systems involvement Status: Acute Plan Patient was admitted to [address] [place] [address]. Suspect patient has developed a viral illness has resulted increasing weakness. Blood pressure elevated at times but her home medications were just started. Still with cough. No wheezing and CXR clear. Will add mucinex. Potassium low today so will replace. Mag 1.9 so start oral replacement as well. A1c was 6.8; continue sliding scale protocol. Increase activity. Walk in halls. Continue PT and OT. Rapid strept screen pending. DVT prophylaxis; SCDs Code status: Full Diet: Diabetic Subjective Date/time seen: 05/03/22 08:42 Interval history: 76yo female with RA on immunosuppressive agent, DM, and severe left knee OA here for weakness and fall.?? Patient with dry cough overnight that kept her up last night. She had subjected fever and chills last night as well. Eating well. No n/v or diarrhea. No CP or abd pain. Exam Narrative: AF 97.8 171/93 105 20 94% ra Gen - NARD Chest - CTA bilaterally, nml RR CV - RRR S1/S2 Abd - soft. Nontender. Nondistended. Positive bowel sounds. Ext - no pedal edema. Psych - normal mood and affect. Patient is pleasant and cooperative. Skin - warm and dry. Objective Data Vital Signs Vital Signs: Vital Signs - 24 hr 05/02/22 09:20 05/02/22 09:30 05/02/22 09:31 Temperature Pulse Rate Respiratory Rate Blood Pressure 185/75 H Pulse Oximetry 94 94 94 Oxygen Delivery 05/02/22 09:47 05/02/22 10:01 05/02/22 10:02 Temperature Pulse Rate Respiratory Rate Blood Pressure 180/83 H Pulse Oximetry 95 93 91 Oxygen Delivery 05/02/22 10:19 05/02/22 10:30 05/02/22 10:31 Temperature Pulse Rate Respiratory Rate Blood Pressure 196/74 H Pulse Oximetry 92 91 92 Oxygen Delivery 05/02/22 10:45 05/02/22 11:05 05/02/22 11:15 Temperature Pulse Rate Respiratory Rate Blood Pressure Pulse Oximetry 93 91 92 Oxygen Delivery 05/02/22 11:51 05/02/22 12:22 05/02/22 13:35 Temperature 98.9 F Pulse Rate 78 Respiratory Rate Blood Pressure 196/88 H Pulse Oximetry 93 100 94 Oxygen Delivery 05/02/22 14:04 05/02/22 14:00 05/02/22 22:00 Temperature 98.4 F 97.2 F L Pulse Rate 78 81 Respiratory Rate 16 18 Blood Pressure 174/87 H 134/89 Pulse Oximetry 93 94 Oxygen Delivery Room Air 05/03/22 06:00 Temperature 97.8 F Pulse Rate 105 H Respiratory Rate 20 Blood Pressure 171/93 H Pulse Oximetry 94 Oxygen Delivery Intake/Output Intake/Output: Intake & Output 04/30/22 05/01/22 05/02/22 05/03/22 23:59 23:59 23:59 23:59 Intake Total 1220 100 Output
[2022-05-03 08:46] LABS: Hemoglobin A1C 6.8 % (<5.7)
[2022-05-03] MEDS: GABAPENTIN 300 MG CAPSULE PO ×3 (08:48→18:03)
[2022-05-03] MEDS: MULTIVITAMINS /C LUTEIN (CENTRUM SILVER) TABLET *BKC 1 TAB PO (08:49)
[2022-05-03] MEDS: METOPROLOL SUCCINATE EXT REL 100 MG TABCR PO (08:49)
[2022-05-03] MEDS: FERROUS SULFATE 324 MG TABLET PO ×2 (08:49→18:04)
[2022-05-03] MEDS: lamoTRIgine 100 MG TABLET PO ×2 (08:49→18:04)
[2022-05-03] MEDS: DULoxetine HCL 60 MG CAPSULE.DR 120 MG PO (08:49)
[2022-05-03] MEDS: ASCORBIC ACID 500 MG TABLET PO (08:50)
[2022-05-03] MEDS: POTASSIUM CHLORIDE 20 MEQ TABLET.ER 40 MEQ PO ×2 (08:50→14:22)
[2022-05-03] MEDS: FOLIC ACID 1 MG TABLET PO (08:50)
[2022-05-03] MEDS: CHOLECALCIFEROL 1,000 UNITS TABLET 2000 UNITS PO (08:50)
[2022-05-03] MEDS: metFORMIN HCL XR 500 MG TAB.SR.24H PO (08:50)
[2022-05-03] MEDS: ASPIRIN 81 MG CHEWABLE TABLET PO (08:50)
[2022-05-03] MEDS: MAGNESIUM OXIDE 400 MG TABLET PO (08:50)
[2022-05-03] MEDS: ZINC SULFATE 220 MG CAPSULE PO (08:50)
[2022-05-03] MEDS: guaiFENesin 12 HR 600 MG TABCR PO ×2 (11:39→20:07)
[2022-05-03] MEDS: PANTOPRAZOLE 40 MG TABLET PO (11:39)
[2022-05-03 12:01] LABS: Glucose Point of Care 137 mg/dl (65-105)
--- NOTE | 2022-05-03 12:59 | PCNSR ---
On 05/03/22, the student, Yamileth Estevez, provided care and completed [facility] documentation on this patient. I have reviewed the student's documentation and agree with the findings.
[2022-05-03 16:37] LABS: Potassium 3.7 mmol/L (3.4-5.0)
[2022-05-03 16:51] LABS: Glucose Point of Care 133 mg/dl (65-105)
[2022-05-03] MEDS: traZODone HCL 50 MG TABLET 100 MG PO (20:07)
[2022-05-03] MEDS: amLODIPine BESYLATE 5 MG TABLET PO (20:07)
[2022-05-03] MEDS: traMADol HCL (*CRX) 50 MG TABLET PO (20:18)
[2022-05-03 21:35] LABS: Glucose Point of Care 138 mg/dl (65-105)
[2022-05-04 06:00] VITALS: BP 164/70; PULSE 81; RESP 20; TEMP 36.7; O2SAT 93
[2022-05-04 07:13] LABS: Anion Gap 9 mmol/L (8-16); Blood Urea Nitrogen 9 mg/dL (7-17); Calcium 8.7 mg/dL (8.4-10.2); Carbon Dioxide 29 mmol/L (22-30); Chloride 99 mmol/L (98-107); Estimated CRCL calculation 68 ml/min; Estimated Glomerular Filt Rate > 60; Glucose 153 mg/dL (65-110); Magnesium 1.9 mg/dL (1.6-2.3); Potassium 3.5 mmol/L (3.4-5.0); Sodium 137 mmol/L (137-145)
[2022-05-04 08:00] VITALS: O2SAT 93
[2022-05-04 08:03] LABS: Glucose Point of Care 168 mg/dl (65-105)
[2022-05-04] MEDS: ASPIRIN 81 MG CHEWABLE TABLET PO (08:52)
[2022-05-04] MEDS: FOLIC ACID 1 MG TABLET PO (08:53)
[2022-05-04] MEDS: guaiFENesin 12 HR 600 MG TABCR PO ×2 (08:53→20:17)
[2022-05-04] MEDS: DULoxetine HCL 60 MG CAPSULE.DR 120 MG PO (08:53)
[2022-05-04] MEDS: FERROUS SULFATE 324 MG TABLET PO ×2 (08:53→16:39)
[2022-05-04] MEDS: CHOLECALCIFEROL 1,000 UNITS TABLET 2000 UNITS PO (08:53)
[2022-05-04] MEDS: MULTIVITAMINS /C LUTEIN (CENTRUM SILVER) TABLET *BKC 1 TAB PO (08:53)
[2022-05-04] MEDS: ASCORBIC ACID 500 MG TABLET PO (08:53)
[2022-05-04] MEDS: GABAPENTIN 300 MG CAPSULE PO ×3 (08:53→16:39)
[2022-05-04] MEDS: MAGNESIUM OXIDE 400 MG TABLET PO (08:53)
[2022-05-04 08:54] VITALS: PULSE 81
[2022-05-04] MEDS: PANTOPRAZOLE 40 MG TABLET PO (08:54)
[2022-05-04] MEDS: ZINC SULFATE 220 MG CAPSULE PO (08:54)
[2022-05-04] MEDS: metFORMIN HCL XR 500 MG TAB.SR.24H PO (08:54)
[2022-05-04] MEDS: METOPROLOL SUCCINATE EXT REL 100 MG TABCR PO (08:54)
[2022-05-04] MEDS: lamoTRIgine 100 MG TABLET PO ×2 (08:54→16:39)
[2022-05-04 11:28] LABS: Glucose Point of Care 225 mg/dl (65-105)
[2022-05-04] MEDS: INSULIN ASPART (*BKC) 100 UNITS/ML SUB-Q (11:43)
[2022-05-04 14:00] VITALS: BP 169/75; PULSE 72; RESP 20; TEMP 36.7; O2SAT 94
--- NOTE | 2022-05-04 14:12 | PCOTNOTE ---
Spoke with Dr. Menard RE: cancellation of PT/OT Treatment Clarification orders, with reordering of evaluation orders, after initial evaluation completed. Per Dr. Menard, this was done in misunderstanding of order, there has been no stated change to pt. that would require re-evaluation at this time. This order will be Stop ed and PT/OT clarification orders with be continued.
[2022-05-04 16:17] LABS: Glucose Point of Care 111 mg/dl (65-105)
--- NOTE | 2022-05-04 17:07 | PM.IMPN ---
Progress Note: A&P Assessment and Plan (1) Hypokalemia: Code(s): E87.6 - Hypokalemia Status: Acute (2) Weakness: Code(s): R53.1 - Weakness Status: Acute (3) Fall: Code(s): W19.XXXA - Unspecified fall, initial encounter Status: Acute (4) URI (upper respiratory infection): Code(s): J06.9 - Acute upper respiratory infection, unspecified Status: Acute (5) Diabetes mellitus: Qualifiers: Diabetes mellitus complication status: with hyperglycemia Diabetes mellitus manager terminal insulin use: without manager terminal use Diabetes mellitus type: type 2 Qualified Code(s): E11.65 - Type 2 diabetes mellitus with hyperglycemia Code(s): E11.9 - Type 2 diabetes mellitus without complications Status: Acute (6) Essential (primary) hypertension: Code(s): I10 - Essential (primary) hypertension Status: Acute (7) 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: Qualifiers: Laterality: unspecified laterality Qualified Code(s): M05.779 - Rheumatoid arthritis with rheumatoid factor of unspecified ankle and foot without organ or systems involvement Code(s): M05.779 - Rheumatoid arthritis with rheumatoid factor of unspecified ankle and foot without organ or systems involvement Status: Acute Plan Patient was admitted to [address] [place] [address]. Suspect patient has developed a viral illness has resulted increasing weakness. Blood pressure elevated at times on her home medications. Cough is better. CXR clear. Continue Mucinex. Potassium was low and this was replaced. Repeat levels normal. A1c was 6.8; continue sliding scale protocol. Continue PT and OT. Add low dose losartan given that she has DM and elevated BP. Awaiting placement. DVT prophylaxis; SCDs, Lovenox Code status: Full Diet: Diabetic Subjective Date/time seen: 05/04/22 17:07 Interval history: 76yo female with RA on immunosuppressive agent, DM, and severe left knee OA here for weakness and fall.?? No chest pain. No shortness of breath but does have dyspnea on exertion. Cough is much improved. Feels better overall. No nausea or vomiting. No diarrhea. She was up walking to the bathroom with therapy. Exam Narrative: AF 98.1 169/75 72 20 94% ra Gen - NARD Chest - few basilar inspiratory crackles. nml RR CV - RRR S1/S2 Abd - soft. Nontender. Nondistended. Positive bowel sounds. Ext - no pedal edema. Psych - normal mood and affect. Patient is pleasant and cooperative. Skin - warm and dry. Objective Data Vital Signs Vital Signs: Vital Signs - 24 hr 05/03/22 22:00 05/03/22 20:00 05/04/22 06:00 Temperature 97.8 F 98.1 F Pulse Rate 80 80 81 Respiratory Rate 18 18 20 Blood Pressure 160/70 H 164/70 H Pulse Oximetry 97 97 93 Oxygen Delivery Room Air 05/04/22 08:54 05/04/22 08:00 05/04/22 14:00 Temperature 98.1 F Pulse Rate 81 72 Respiratory Rate 20 Blood Pressure 169/75 H Pulse Oximetry 93 94 Oxygen Delivery Room Air Intake/Output Intake/Output: Intake & Output 05/01/22 05/02/22 05/03/22 05/04/22 23:59 23:59 23:59 23:59 Intake Total 1220 1050 1160 Output Total 400 800 Balance 367 088 9730 Meds/Results Medications: Active Medications Generic Name Dose Route Start Last Admin Trade Name Freq PRN Reason Stop Dose Admin Acetaminophen 650 mg 05/02/22 15:40 Acetaminophen 325 Mg Tablet PO Q6H PRN Mild Pain (1-3) or Fever Amlodipine Besylate 5 mg 05/02/22 21:00 05/03/22 20:07 Amlodipine Besylate 5 Mg Tablet PO 5 mg HS DORYS Administration Ascorbic Acid 500 mg 05/03/22 09:00 05/04/22 08:53 Ascorbic Acid 500 Mg Tablet PO 500 mg DAILY DORYS Administration Aspirin 81 mg 05/03/22 08:00 05/04/22 08:52 Aspirin 81 Mg Chewable Tablet PO 81 mg DAILY@0800 DORYS Administration Dextrose 12.5 gm 05/02/22 16:37 Dextrose 50% 25 Gm/50 Ml Syringe IV PUSH PRN PRN
[2022-05-04] MEDS: LOSARTAN POTASSIUM 25 MG TABLET PO (18:01)
[2022-05-04] MEDS: ENOXAPARIN 40 MG/0.4 ML SYRINGE SUB-Q (18:01)
[2022-05-04 20:00] VITALS: PULSE 72; RESP 16; O2SAT 93
[2022-05-04] MEDS: amLODIPine BESYLATE 5 MG TABLET PO (20:17)
[2022-05-04] MEDS: traZODone HCL 50 MG TABLET 100 MG PO (20:17)
[2022-05-04 20:56] LABS: Glucose Point of Care 140 mg/dl (65-105)
[2022-05-04 22:00] VITALS: BP 146/75; PULSE 72; RESP 16; TEMP 36.9; O2SAT 93
[2022-05-05] VITALS (7 sets, daily range): BP systolic 162–177; BP diastolic 63–70; PULSE 77–81; RESP 16–20; TEMP 36.6–37.3; O2SAT 93–95
[2022-05-05 05:27] LABS: Glucose Point of Care 150 mg/dl (65-105)
[2022-05-05 08:01] LABS: Glucose Point of Care 140 mg/dl (65-105)
[2022-05-05] MEDS: FOLIC ACID 1 MG TABLET PO (09:39)
[2022-05-05] MEDS: METOPROLOL SUCCINATE EXT REL 100 MG TABCR PO (09:39)
[2022-05-05] MEDS: CHOLECALCIFEROL 1,000 UNITS TABLET 2000 UNITS PO (09:39)
[2022-05-05] MEDS: ZINC SULFATE 220 MG CAPSULE PO (09:39)
[2022-05-05] MEDS: ASCORBIC ACID 500 MG TABLET PO (09:39)
[2022-05-05] MEDS: MAGNESIUM OXIDE 400 MG TABLET PO (09:39)
[2022-05-05] MEDS: GABAPENTIN 300 MG CAPSULE PO ×3 (09:39→17:24)
[2022-05-05] MEDS: DULoxetine HCL 60 MG CAPSULE.DR 120 MG PO (09:39)
[2022-05-05] MEDS: PANTOPRAZOLE 40 MG TABLET PO (09:39)
[2022-05-05] MEDS: guaiFENesin 12 HR 600 MG TABCR PO (09:39)
[2022-05-05] MEDS: metFORMIN HCL XR 500 MG TAB.SR.24H PO (09:39)
[2022-05-05] MEDS: ASPIRIN 81 MG CHEWABLE TABLET PO (09:40)
[2022-05-05] MEDS: FERROUS SULFATE 324 MG TABLET PO ×2 (09:40→17:24)
[2022-05-05] MEDS: ENOXAPARIN 40 MG/0.4 ML SYRINGE SUB-Q (09:40)
[2022-05-05] MEDS: lamoTRIgine 100 MG TABLET PO ×2 (09:40→17:24)
[2022-05-05] MEDS: LOSARTAN POTASSIUM 25 MG TABLET PO (09:40)
[2022-05-05] MEDS: MULTIVITAMINS /C LUTEIN (CENTRUM SILVER) TABLET *BKC 1 TAB PO (09:40)
--- NOTE | 2022-05-05 09:42 | PC.NURSE ---
Patient has been encouraged to use the 2-wheeled walker and discontinue using the rolaider for safety precautions. These are PT recommendations. Pt expressed disappointment and frustration in using the preferred method.
[2022-05-05] MEDS: traMADol HCL (*CRX) 50 MG TABLET PO (10:49)
[2022-05-05 11:32] LABS: Glucose Point of Care 145 mg/dl (65-105)
[2022-05-05 16:17] LABS: Glucose Point of Care 128 mg/dl (65-105)
--- NOTE | 2022-05-05 17:47 | PM.IMPN ---
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: without middle or intermediate school principal use Diabetes mellitus complication status: with hyperglycemia Qualified Code(s): E11.65 - Type 2 diabetes mellitus with hyperglycemia Code(s): E11.9 - Type 2 diabetes mellitus without complications Status: Acute (6) Essential (primary) hypertension: Code(s): I10 - Essential (primary) hypertension Status: Acute (7) 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: Qualifiers: Laterality: unspecified laterality Qualified Code(s): M05.779 - Rheumatoid arthritis with rheumatoid factor of unspecified ankle and foot without organ or systems involvement Code(s): M05.779 - Rheumatoid arthritis with rheumatoid factor of unspecified ankle and foot without organ or systems involvement Status: Acute Plan Patient was admitted to [address] [place] [address]. Suspect patient has developed a viral illness has resulted increasing weakness. Blood pressure elevated at times on her home medications. Loasrtan added. Cough has all but resolved. CXR was clear. Change Mucinex to prn. Potassium was low and this was replaced. Repeat levels normal. A1c was 6.8; continue sliding scale protocol. Patient remains very weak with maximum assist with bed mobility; reports reviewed. Continue PT and OT. Awaiting placement. Will check CT brain given how weak she is. Repeat labs in the morning. DVT prophylaxis; SCDs, Lovenox Code status: Full Diet: Diabetic Subjective Date/time seen: 05/05/22 17:47 Interval history: 76yo female with RA on immunosuppressive agent, DM, and severe left knee OA here for weakness and fall.?? No complaints. Feels well. No problems overnight. Eating normally. No CP or SOB. No n/v. No diarrhea. Cough resolved. Exam Narrative: AF 98.1 162/63 77 20 93% ra Gen - NARD Chest - CTA bilaterally, nml RR CV - RRR S1/S2 Abd - soft. Nontender. Nondistended. Positive bowel sounds. Ext - no pedal edema. Psych - normal mood but odd affect Neuro - diffusely weak and has trouble sitting up in bed Skin - warm and dry. Objective Data Vital Signs Vital Signs: Vital Signs - 24 hr 05/04/22 22:00 05/04/22 20:00 05/05/22 05:53 Temperature 98.5 F 99.1 F Pulse Rate 72 72 81 Respiratory Rate 16 16 16 Blood Pressure 146/75 H 177/70 H Pulse Oximetry 93 93 93 Oxygen Delivery Room Air 05/05/22 09:39 05/05/22 08:00 05/05/22 14:00 Temperature 98.1 F Pulse Rate 79 77 Respiratory Rate 20 Blood Pressure 162/63 H Pulse Oximetry 95 93 Oxygen Delivery Room Air Intake/Output Intake/Output: Intake & Output 05/02/22 05/03/22 05/04/22 05/05/22 23:59 23:59 23:59 23:59 Intake Total 1220 1050 2600 1110 Output Total 400 800 450 Balance 812 298 3472 1110 Meds/Results Medications: Active Medications Generic Name Dose Route Start Last Admin Trade Name Freq PRN Reason Stop Dose Admin Acetaminophen 650 mg 05/02/22 15:40 Acetaminophen 325 Mg Tablet PO Q6H PRN Mild Pain (1-3) or Fever Amlodipine Besylate 5 mg 05/02/22 21:00 05/04/22 20:17 Amlodipine Besylate 5 Mg Tablet PO 5 mg HS DORYS Administration Ascorbic Acid 500 mg 05/03/22 09:00 05/05/22 09:39 Ascorbic Acid 500 Mg Tablet PO 500 mg DAILY DORYS Administration Aspirin 81 mg 05/03/22 08:00 05/05/22 09:40 Aspirin 81 Mg Chewable Tablet PO 81 mg DAILY@0800 DORYS Administration Dextrose 12.5 gm 05/02/22 16:37
[2022-05-05 20:59] LABS: Glucose Point of Care 133 mg/dl (65-105)
[2022-05-05] MEDS: traZODone HCL 50 MG TABLET 100 MG PO (20:59)
[2022-05-05] MEDS: amLODIPine BESYLATE 5 MG TABLET PO (20:59)
[2022-05-05 21:18] LABS: Appearance Urine Clear (Clear); Bilirubin Urine Negative (Negative); Blood Urine Negative (Negative); Color Urine Yellow (Yellow); Glucose Urine UA Negative (Negative); Ketones Urine 2+ mg/dL (Negative); Leukocyte Esterase Ur Trace LEU/UL (Negative); Nitrate Urine Negative (Negative); Protein Urine 1+ mg/dL (Negative); Specific Grav Ur 1.015 (1.001-1.035)
[2022-05-05 21:23] LABS: Add Urine Microscopic? YES; Mucus Urine Rare /lpf; RBC Urine 0-2 /hpf (0-2); Squamous Epithelial Cell Urine Rare /hpf (Few); WBC Urine 0-3 /hpf
[2022-05-05] MEDS: FLUCONAZOLE 150 MG TABLET PO (21:36)
[2022-05-06 04:32] VITALS: BP 155/64; PULSE 83; RESP 16; TEMP 36.6; O2SAT 90
[2022-05-06 06:07] LABS: Basophils Percent Auto 0.3 % (0.2-1.2); Eosinophils Absolute Auto 0.1 K/mm3 (0-0.3); Eosinophils Percent Auto 0.7 % (0-4.4); Hematocrit 33.8 % (37.0-47.0); Hemoglobin 11.2 g/dL (12.0-15.0); Immature Granulocyte Absolute 0.07 K/mm3 (0.00-0.031); Immature Granulocyte Percent A 0.7 % (0-0.5); Lymphocytes Absolute Auto 1.25 K/mm3 (0.9-3.2); Mean Corpuscular HGB Conc 33.1 g/dl (32-36); Mean Corpuscular Hemoglobin 31.7 pg (26-34); Mean Corpuscular Volume 95.8 fl (80-100); Mean Platelet Volume 10.2 fl (7.4-10.4); Monocytes Absolute Auto 1.1 K/mm3 (0.1-0.6); Monocytes Percent Auto 11.7 % (2.6-8.5); Neutrophils Percent Auto 73.6 % (45.5-73.1); Platelet Count Result 265 k/mm3 (150-375); Red Blood Count 3.53 M/mm3 (4.2-5.4); White Blood Count 9.6 K/mm3 (4.5-10.0)
[2022-05-06 07:49] LABS: Alanine Aminotransferase 16 U/L (6-35); Albumin Level 3.6 g/dL (3.5-5.1); Alkaline Phosphatase 109 U/L (38-126); Anion Gap 11 mmol/L (8-16); Aspartate Amino Transferase 28 U/L (14-36); Bilirubin,Total 0.7 mg/dL (0.2-1.3); Blood Urea Nitrogen 11 mg/dL (7-17); CRP 30.7 mg/dL (<1.0); Calcium 8.6 mg/dL (8.4-10.2); Carbon Dioxide 28 mmol/L (22-30); Chloride 95 mmol/L (98-107); Estimated CRCL calculation 68 ml/min; Estimated Glomerular Filt Rate > 60; Glucose 145 mg/dL (65-110); Magnesium 1.9 mg/dL (1.6-2.3); Phosphorus 4.8 mg/dL (2.5-4.5); Potassium 3.6 mmol/L (3.4-5.0); Sodium 134 mmol/L (137-145)
[2022-05-06 07:59] LABS: Glucose Point of Care 160 mg/dl (65-105)
--- NOTE | 2022-05-06 09:02 | PC.NURSE ---
pt adamantly refusing to take any medications, she is c/o mild headache but will not take tylenol when offered, she has also refused to go for chest x-ray ordered this a.m
[2022-05-06] MEDS: ACETAMINOPHEN 325 MG TABLET 650 MG PO ×2 (09:59→16:54)
[2022-05-06] MEDS: metFORMIN HCL XR 500 MG TAB.SR.24H PO (10:00)
[2022-05-06] MEDS: LORazepam (*CRX) 0.5 MG TABLET PO (10:00)
[2022-05-06 10:01] VITALS: PULSE 83
[2022-05-06] MEDS: ASPIRIN 81 MG CHEWABLE TABLET PO (10:01)
[2022-05-06] MEDS: METOPROLOL SUCCINATE EXT REL 100 MG TABCR PO (10:01)
[2022-05-06] MEDS: lamoTRIgine 100 MG TABLET PO ×2 (10:02→16:53)
[2022-05-06] MEDS: DULoxetine HCL 60 MG CAPSULE.DR 120 MG PO (10:02)
[2022-05-06] MEDS: ENOXAPARIN 40 MG/0.4 ML SYRINGE SUB-Q (10:02)
[2022-05-06] MEDS: GABAPENTIN 300 MG CAPSULE PO ×3 (10:02→16:52)
[2022-05-06] MEDS: PANTOPRAZOLE 40 MG TABLET PO (10:03)
[2022-05-06] MEDS: LOSARTAN POTASSIUM 25 MG TABLET PO (10:03)
[2022-05-06 11:29] LABS: Glucose Point of Care 172 mg/dl (65-105)
[2022-05-06] MEDS: traMADol HCL (*CRX) 50 MG TABLET PO ×2 (13:53→22:51)
[2022-05-06 14:00] VITALS: BP 150/72; PULSE 74; RESP 20; TEMP 36.4; O2SAT 93
--- NOTE | 2022-05-06 14:02 | PM.IMPN ---
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 insulin use: without fpc use Diabetes mellitus complication status: with hyperglycemia Qualified Code(s): E11.65 - Type 2 diabetes mellitus with hyperglycemia Code(s): E11.9 - Type 2 diabetes mellitus without complications Status: Acute (7) Essential (primary) hypertension: Code(s): I10 - Essential (primary) hypertension Status: Acute (8) 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: Qualifiers: Laterality: unspecified laterality Qualified Code(s): M05.779 - Rheumatoid arthritis with rheumatoid factor of unspecified ankle and foot without organ or systems involvement Code(s): M05.779 - Rheumatoid arthritis with rheumatoid factor of unspecified ankle and foot without organ or systems involvement Status: Acute Plan Patient was admitted to [address] [place] [address]. Suspect patient has developed a viral illness has resulted increasing weakness. Blood pressure elevated at times on her home medications. Losartan added. Cough resolved so Mucinex changed to prn. COVID was negative. Potassium was low and this was replaced. Repeat levels normal. A1c was 6.8; continue sliding scale protocol. Patient remains very weak with maximum assist with bed mobility. Now she is confused and refusing medications. TSH/B12/Folate levels normal in December. CT brain showing no acute findings. CRP elevated to 31 but repeat UA clear. CXR was clear and remained clear on repeat. Elevated CRP could be related to her RA. Confusion has been intermittent and suspect she has underlying dementia. Encouraged to take her medications. Continue PT and OT. Awaiting placement. DVT prophylaxis; SCDs, Lovenox Code status: Full Diet: Diabetic Subjective Date/time seen: 05/06/22 14:02 Interval history: 76yo female with RA on immunosuppressive agent, DM, and severe left knee OA here for weakness and fall.?? Patient alert but mildly confused today. She states she slept well. Has not been out of bed. She is refusing her medications this morning and when asked why, she states she doesn't know. Eating okay. Denies n/v. Exam Narrative: AF 97.9 155/64 83 16 90% ra Gen - NARD Chest - clear anteriorly CV - RRR S1/S2 Abd - soft. NT/ND. +BS. Ext - no pedal edema. no evidence of active synovitis. Right wrist tender to palpate Psych - normal mood but odd affect Neuro - alert, oriented to month and name but not location, year or tarik name. Skin - warm and dry. Objective Data Vital Signs Vital Signs: Vital Signs - 24 hr 05/05/22 19:58 05/05/22 21:00 05/05/22 21:00 Temperature 97.8 F 97.8 F Pulse Rate 79 79 Respiratory Rate 17 17 Blood Pressure 164/65 H 164/65 H Pulse Oximetry 95 95 Oxygen Delivery Room Air Room Air 05/05/22 20:50 05/06/22 04:32 05/06/22 10:01 Temperature 97.9 F Pulse Rate 83 83 Respiratory Rate 16 Blood Pressure 155/64 H Pulse Oximetry 94 90 Oxygen Delivery Room Air 05/06/22 08:00 Temperature Pulse Rate Respiratory Rate Blood Pressure Pulse Oximetry Oxygen Delivery Room Air Intake/Output Intake/Output: Intake & Output 05/03/22 05/04/22 05/05/22 05/06/22 23:59 23:59 23:59 23:59 Intake Total 1050 2600 1710 120 Output Total 373 339 8671 0 Balance 250 2150 410 120 Meds/Results Medications: Active Medications Generic Name Dose
[2022-05-06 16:28] LABS: Glucose Point of Care 127 mg/dl (65-105)
[2022-05-06] MEDS: FERROUS SULFATE 324 MG TABLET PO (16:52)
--- NOTE | 2022-05-06 17:20 | PC.NURSE ---
spoke at length with pt's and niece about plan of care and reviewed chart, they are concerned about pt's change in LOC from baseline at home, reviewed med list with to confirm, reviewed with them that work up is being done and that labs have been ordered to trend and has reviewed chart and added on some tests today, reviewed result of UA with them per their request
[2022-05-06 20:00] VITALS: PULSE 74; RESP 20; O2SAT 93
[2022-05-06] MEDS: amLODIPine BESYLATE 5 MG TABLET PO (21:13)
[2022-05-06] MEDS: traZODone HCL 50 MG TABLET PO (21:13)
[2022-05-06 21:38] LABS: Glucose Point of Care 134 mg/dl (65-105)
[2022-05-06 22:00] VITALS: BP 169/69; PULSE 80; RESP 20; TEMP 36.2; O2SAT 91
[2022-05-07 06:00] VITALS: BP 158/128; PULSE 90; RESP 20; TEMP 36.4; O2SAT 95
[2022-05-07] MEDS: traMADol HCL (*CRX) 50 MG TABLET PO ×2 (07:00→12:31)
[2022-05-07 07:45] VITALS: BP 178/83; PULSE 90; RESP 20
[2022-05-07 07:55] LABS: Glucose Point of Care 175 mg/dl (65-105)
[2022-05-07 08:02] LABS: Rapid Plasma Reagin Non-Reactive (NonReactive)
[2022-05-07] MEDS: ACETAMINOPHEN 325 MG TABLET 650 MG PO ×2 (09:01→20:41)
[2022-05-07] MEDS: GABAPENTIN 300 MG CAPSULE PO ×2 (09:02→12:32)
[2022-05-07] MEDS: DULoxetine HCL 60 MG CAPSULE.DR 120 MG PO (09:02)
[2022-05-07] MEDS: CHOLECALCIFEROL 1,000 UNITS TABLET 2000 UNITS PO (09:02)
[2022-05-07] MEDS: MAGNESIUM OXIDE 400 MG TABLET PO (09:02)
[2022-05-07] MEDS: LOSARTAN POTASSIUM 25 MG TABLET PO (09:02)
[2022-05-07] MEDS: metFORMIN HCL XR 500 MG TAB.SR.24H PO (09:03)
[2022-05-07] MEDS: lamoTRIgine 100 MG TABLET PO (09:03)
[2022-05-07] MEDS: MULTIVITAMINS /C LUTEIN (CENTRUM SILVER) TABLET *BKC 1 TAB PO (09:03)
[2022-05-07] MEDS: ASPIRIN 81 MG CHEWABLE TABLET PO (09:03)
[2022-05-07] MEDS: FERROUS SULFATE 324 MG TABLET PO (09:03)
[2022-05-07 09:04] VITALS: PULSE 90
[2022-05-07] MEDS: METOPROLOL SUCCINATE EXT REL 100 MG TABCR PO (09:04)
[2022-05-07] MEDS: ENOXAPARIN 40 MG/0.4 ML SYRINGE SUB-Q (09:04)
[2022-05-07] MEDS: PANTOPRAZOLE 40 MG TABLET PO (09:04)
[2022-05-07] MEDS: ASCORBIC ACID 500 MG TABLET PO (09:04)
[2022-05-07] MEDS: FOLIC ACID 1 MG TABLET PO (09:05)
[2022-05-07] MEDS: ZINC SULFATE 220 MG CAPSULE PO (09:05)
[2022-05-07 11:49] LABS: Glucose Point of Care 188 mg/dl (65-105)
[2022-05-07 14:00] VITALS: BP 153/73; PULSE 74; RESP 18; TEMP 36.7; O2SAT 93
--- NOTE | 2022-05-07 16:03 | PM.IMPN ---
Progress Note: A&P Assessment and Plan (1) Confusion: Code(s): R41.0 - Disorientation, unspecified Status: Acute Assessment and Plan: Patient remains very weak with maximum assist with bed mobility. She is also confused and was refusing medications. She did take her meds today. TSH/B12/Folate levels normal in December. RPR nonreactive. CT brain showing no acute findings. CRP elevated to 31 but repeat UA clear. CXR was clear and remained clear on repeat. Elevated CRP could be related to her RA. Confusion has been intermittent and suspect she has underlying dementia. Made worse by having her days and nights mixed up. Will advance trazodone back to her home dose in the hopes that she will sleep better tonight. Will decrease her Cymbalta since this may be making her sleepy during the day. (2) Weakness: Code(s): R53.1 - Weakness Status: Acute Assessment and Plan: Patient was admitted to [address] [place] [address]. Suspect patient has developed a viral illness that has resulted in her increasing weakness. Patient remains very weak with maximum assist with bed mobility. Work up as mentioned above. Continue PT/OT. (3) Hypokalemia: Code(s): E87.6 - Hypokalemia Status: Acute Assessment and Plan: Patient had transiently low potassium but this was replaced and has been stable since. Continue to monitor. (4) Fall: Code(s): W19.XXXA - Unspecified fall, initial encounter Status: Acute Assessment and Plan: As above. Patient was being wheeled around by her as she sat on the platform of her walker. On the day of admission, she had to stand slightly as he adjusted the walker but then she fell on her buttock. CXR was clear. Pelvis xray showing no acute osseous abnormalities. 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 PT and OT ordered. Instructed not to move patient around with her sitting on the walker. (5) URI (upper respiratory infection): Code(s): J06.9 - Acute upper respiratory infection, unspecified Status: Acute Assessment and Plan: Patient with mild URI symptoms with cough and rhinorrhea on admission. She was given Mucinex. Her symptoms have resolved. Mucinex is now p.r.n.. (6) Diabetes mellitus: Qualifiers: Diabetes mellitus complication status: with hyperglycemia Diabetes mellitus intermediate designer insulin use: without senior care use Diabetes mellitus type: type 2 Qualified Code(s): E11.65 - Type 2 diabetes mellitus with hyperglycemia Code(s): E11.9 - Type 2 diabetes mellitus without complications Status: Acute Assessment and Plan: A1c 6.8. The patient's blood glucose was reviewed on 05/07 Glucose remains well controlled. Continue AccuCheks covering with sliding scale. Hypoglycemia protocol available as needed. Continue current medications. (7) Essential (primary) hypertension: Code(s): I10 - Essential (primary) hypertension Status: Acute Assessment and Plan: Patient's blood pressure was reviewed on 05/07 Blood pressure elevatd at times. Losartan was added with improvement. Will continue current medications. (8) 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: Qualifiers: Laterality: unspecified laterality Qualified Code(s): M05.779 - Rheumatoid arthritis with rheumatoid factor of unspecified ankle and foot without organ or systems involvement Code(s): M05.779 - Rheumatoid arthritis with rheumatoid factor of unspecified ankle and foot without organ or systems involvement Status: Acute Assessment and Plan: Patient without active synovitis. CRP elevated but no clear source of infection. Suspect may be related to chronic inflammation from RA. Continue to follow. Plan DVT prophylaxis; SCDs, Lovenox Code status: Full Diet: Diabetic Subjective Da
[2022-05-07 16:48] LABS: Glucose Point of Care 123 mg/dl (65-105)
[2022-05-07] MEDS: amLODIPine BESYLATE 5 MG TABLET PO (20:40)
[2022-05-07] MEDS: traZODone HCL 50 MG TABLET 100 MG PO (20:41)
[2022-05-07] MEDS: lamoTRIgine 25 MG TABLET 75 MG PO (20:41)
[2022-05-07 21:10] LABS: Glucose Point of Care 154 mg/dl (65-105)
[2022-05-07 22:00] VITALS: BP 162/73; PULSE 82; RESP 21; TEMP 36.6; O2SAT 91
[2022-05-08] VITALS (7 sets, daily range): BP systolic 142–171; BP diastolic 64–83; PULSE 75–85; RESP 18–20; TEMP 36.2–36.4; O2SAT 91–97; BMI 10.0
[2022-05-08] MEDS: ACETAMINOPHEN 325 MG TABLET 650 MG PO ×2 (05:26→11:53)
[2022-05-08 06:27] LABS: Basophils Percent Auto 0.3 % (0.2-1.2); Eosinophils Absolute Auto 0.1 K/mm3 (0-0.3); Eosinophils Percent Auto 0.8 % (0-4.4); Hematocrit 35.3 % (37.0-47.0); Hemoglobin 11.5 g/dL (12.0-15.0); Immature Granulocyte Absolute 0.09 K/mm3 (0.00-0.031); Immature Granulocyte Percent A 0.9 % (0-0.5); Lymphocytes Absolute Auto 1.03 K/mm3 (0.9-3.2); Lymphocytes Percent Auto 10.3 % (18.3-44.2); Mean Corpuscular HGB Conc 32.6 g/dl (32-36); Mean Corpuscular Hemoglobin 31.8 pg (26-34); Mean Corpuscular Volume 97.5 fl (80-100); Mean Platelet Volume 10.2 fl (7.4-10.4); Monocytes Absolute Auto 0.8 K/mm3 (0.1-0.6); Monocytes Percent Auto 8.2 % (2.6-8.5); Neutrophils Absolute Auto 7.9 K/mm3 (1.3-6.7); Neutrophils Percent Auto 79.5 % (45.5-73.1); Platelet Count Result 330 k/mm3 (150-375); Red Blood Count 3.62 M/mm3 (4.2-5.4); Red Cell Distribution Width 11.9 % (11.5-14.5)
[2022-05-08 07:19] LABS: Alanine Aminotransferase 21 U/L (6-35); Albumin Level 3.6 g/dL (3.5-5.1); Alkaline Phosphatase 153 U/L (38-126); Anion Gap 10 mmol/L (8-16); Aspartate Amino Transferase 26 U/L (14-36); Bilirubin,Total 0.5 mg/dL (0.2-1.3); Blood Urea Nitrogen 19 mg/dL (7-17); Calcium 9.2 mg/dL (8.4-10.2); Carbon Dioxide 31 mmol/L (22-30); Chloride 96 mmol/L (98-107); Estimated CRCL calculation 68 ml/min; Estimated Glomerular Filt Rate > 60; Glucose 153 mg/dL (65-110); Magnesium 2.2 mg/dL (1.6-2.3); Phosphorus 5.1 mg/dL (2.5-4.5); Potassium 3.6 mmol/L (3.4-5.0); Sodium 137 mmol/L (137-145)
[2022-05-08 07:38] LABS: Procalcitonin 0.2 ng/mL
[2022-05-08 08:04] LABS: Glucose Point of Care 158 mg/dl (65-105)
[2022-05-08] MEDS: ASPIRIN 81 MG CHEWABLE TABLET PO (09:44)
[2022-05-08] MEDS: CHOLECALCIFEROL 1,000 UNITS TABLET 2000 UNITS PO (09:44)
[2022-05-08] MEDS: ASCORBIC ACID 500 MG TABLET PO (09:44)
[2022-05-08] MEDS: DULoxetine HCL 30 MG CAPSULE.DR 90 MG PO (09:45)
[2022-05-08] MEDS: ENOXAPARIN 40 MG/0.4 ML SYRINGE SUB-Q (09:46)
[2022-05-08] MEDS: FERROUS SULFATE 324 MG TABLET PO ×2 (09:46→17:29)
[2022-05-08] MEDS: FOLIC ACID 1 MG TABLET PO (09:46)
[2022-05-08] MEDS: GABAPENTIN 300 MG CAPSULE PO ×3 (09:46→17:29)
[2022-05-08] MEDS: metFORMIN HCL XR 500 MG TAB.SR.24H PO (09:47)
[2022-05-08] MEDS: LOSARTAN POTASSIUM 25 MG TABLET PO (09:47)
[2022-05-08] MEDS: MAGNESIUM OXIDE 400 MG TABLET PO (09:47)
[2022-05-08] MEDS: lamoTRIgine 25 MG TABLET 75 MG PO ×2 (09:47→21:13)
[2022-05-08] MEDS: PANTOPRAZOLE 40 MG TABLET PO (09:48)
[2022-05-08] MEDS: MULTIVITAMINS /C LUTEIN (CENTRUM SILVER) TABLET *BKC 1 TAB PO (09:48)
[2022-05-08] MEDS: ZINC SULFATE 220 MG CAPSULE PO (09:48)
[2022-05-08] MEDS: METOPROLOL SUCCINATE EXT REL 100 MG TABCR PO (09:49)
[2022-05-08 11:53] LABS: Glucose Point of Care 144 mg/dl (65-105)
[2022-05-08] MEDS: hydrALAZINE HCL 20 MG/ML VIAL 10 MG IV PUSH (13:05)
[2022-05-08 13:27] LABS: CRP 41.8 mg/dL (<1.0)
[2022-05-08 16:16] LABS: Glucose Point of Care 124 mg/dl (65-105)
--- NOTE | 2022-05-08 17:19 | PM.IMPN ---
Progress Note: A&P Assessment and Plan (1) Confusion: Code(s): R41.0 - Disorientation, unspecified Status: Acute Assessment and Plan: Patient remains very weak with maximum assist with bed mobility. She was also confused and was refusing medications at times. TSH/B12/Folate levels normal. RPR nonreactive. CT brain showing no acute findings. CRP elevated to 31 but repeat UA clear. CXR was clear and remained clear on repeat. Elevated CRP could be related to her RA. Confusion has been intermittent and suspect she has underlying dementia. Also now feel some of her symptoms related to over sedation from medications. Lamictal and Cymalbta dosing cut back and she is now more awake. Not sure why she is more somnolent here with her medications unless she takes her meds at home intermittently. Will monitor and if remains stable, then discahrge tomorrow. (2) Neck pain: Code(s): M54.2 - Cervicalgia Status: Acute Assessment and Plan: Patient with neck pain new onset. SHe is also having posterior headache felt related to the neck pain. Doubt related to the fall and more likely related to her prolonged bedrest. Will use heating pad. No narcotics or muscle relaxants. Encouraged her to be out of bed. (3) Weakness: Code(s): R53.1 - Weakness Status: Acute Assessment and Plan: Patient was admitted to [address] [place] [address]. Suspect patient has developed a viral illness that has resulted in her increasing weakness. Patient remains very weak with maximum assist with bed mobility. Also a component of poor motivation. Work up as mentioned above. Continue PT/OT. (4) Hypokalemia: Code(s): E87.6 - Hypokalemia Status: Acute Assessment and Plan: Patient had transiently low potassium but this was replaced and has been stable since. Continue to monitor. (5) Fall: Code(s): W19.XXXA - Unspecified fall, initial encounter Status: Acute Assessment and Plan: As above. Patient was being wheeled around by her as she sat on the platform of her walker. On the day of admission, she fell off the walker on to her buttock. CXR was clear. Pelvis xray showing no acute osseous abnormalities. Left shoulder x-ray showed [id number] osteoarthritis of the left acromioclavicular and glenohumeral joints. Now having neck pain but not felt related to the fall. Continue PT and OT. Heating pad. Instructed not to move patient around with her sitting on the walker. (6) URI (upper respiratory infection): Code(s): J06.9 - Acute upper respiratory infection, unspecified Status: Acute Assessment and Plan: Patient with mild URI symptoms with cough and rhinorrhea on admission. She was given Mucinex. Her symptoms have resolved. Mucinex is now p.r.n.. (7) Diabetes mellitus: Qualifiers: Diabetes mellitus complication status: with hyperglycemia Diabetes mellitus residential insulin use: without manager terminal use Diabetes mellitus type: type 2 Qualified Code(s): E11.65 - Type 2 diabetes mellitus with hyperglycemia Code(s): E11.9 - Type 2 diabetes mellitus without complications Status: Acute Assessment and Plan: A1c 6.8. The patient's blood glucose was reviewed on 05/08 Glucose remains well controlled. Continue AccuCheks covering with sliding scale. Hypoglycemia protocol available as needed. Continue current medications. (8) Essential (primary) hypertension: Code(s): I10 - Essential (primary) hypertension Status: Acute Assessment and Plan: Patient's blood pressure was reviewed on 05/08 Blood pressure elevated at times. Losartan was added with improvement. Will advance losartan (9) 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: Qualifiers: Laterality: unspecified laterality Qualified Code(s): M05.779 - Rheumatoid arthritis with rheumatoid factor of unspecified ankle a
--- NOTE | 2022-05-08 18:32 | PC.NURSE ---
Pt reports having headache for majority of the day that was treated with tylenol. Pt blood pressure elevated and was treated with IV hydralazine. Pt resting for most of the day. Pt unable to take meds by herself and takes them one at a time. Will continue to monitor pt.
[2022-05-08] MEDS: amLODIPine BESYLATE 5 MG TABLET PO (21:13)
[2022-05-08] MEDS: guaiFENesin 12 HR 600 MG TABCR PO (21:13)
[2022-05-08] MEDS: traZODone HCL 50 MG TABLET 100 MG PO (21:14)
[2022-05-08 21:28] LABS: Glucose Point of Care 127 mg/dl (65-105)
[2022-05-08 22:16] LABS: Folic Acid > 20.0 ng/mL (2.76->20)
[2022-05-09 04:55] VITALS: BP 188/88; PULSE 95; RESP 20; TEMP 36.5; O2SAT 94
[2022-05-09] MEDS: hydrALAZINE HCL 20 MG/ML VIAL 10 MG IV PUSH (05:24)
[2022-05-09] MEDS: traMADol HCL (*CRX) 50 MG TABLET PO (06:09)
[2022-05-09 08:16] LABS: Glucose Point of Care 158 mg/dl (65-105)
[2022-05-09] MEDS: ASCORBIC ACID 500 MG TABLET PO (09:07)
[2022-05-09] MEDS: CHOLECALCIFEROL 1,000 UNITS TABLET 2000 UNITS PO (09:07)
[2022-05-09] MEDS: ASPIRIN 81 MG CHEWABLE TABLET PO (09:07)
[2022-05-09 09:08] VITALS: PULSE 90
[2022-05-09] MEDS: FOLIC ACID 1 MG TABLET PO (09:08)
[2022-05-09] MEDS: FERROUS SULFATE 324 MG TABLET PO ×2 (09:08→17:22)
[2022-05-09] MEDS: DULoxetine HCL 30 MG CAPSULE.DR 90 MG PO (09:08)
[2022-05-09] MEDS: ENOXAPARIN 40 MG/0.4 ML SYRINGE SUB-Q (09:08)
[2022-05-09] MEDS: GABAPENTIN 300 MG CAPSULE PO ×3 (09:08→17:22)
[2022-05-09] MEDS: lamoTRIgine 25 MG TABLET 75 MG PO ×2 (09:08→21:26)
[2022-05-09] MEDS: LOSARTAN POTASSIUM 50 MG TABLET PO (09:08)
[2022-05-09] MEDS: MAGNESIUM OXIDE 400 MG TABLET PO (09:08)
[2022-05-09] MEDS: METOPROLOL SUCCINATE EXT REL 100 MG TABCR PO (09:08)
[2022-05-09] MEDS: ZINC SULFATE 220 MG CAPSULE PO (09:09)
[2022-05-09] MEDS: metFORMIN HCL XR 500 MG TAB.SR.24H PO (09:09)
[2022-05-09] MEDS: PANTOPRAZOLE 40 MG TABLET PO (09:09)
[2022-05-09] MEDS: MULTIVITAMINS /C LUTEIN (CENTRUM SILVER) TABLET *BKC 1 TAB PO (09:09)
[2022-05-09 11:49] LABS: Glucose Point of Care 128 mg/dl (65-105)
[2022-05-09 14:00] VITALS: BP 151/68; PULSE 81; RESP 16; TEMP 36.5; O2SAT 94
--- NOTE | 2022-05-09 16:10 | PM.IMPN ---
Progress Note: A&P Assessment and Plan (1) Confusion: Code(s): R41.0 - Disorientation, unspecified Status: Acute Assessment and Plan: Patient remains very weak with maximum assist with bed mobility. She was also confused and was refusing medications at times. TSH/B12/Folate levels normal. RPR nonreactive. CT brain showing no acute findings. CRP elevated to 31 but repeat UA clear. CXR was clear and remained clear on repeat. Elevated CRP could be related to her RA. Confusion has been intermittent and suspect she has underlying dementia. Also now feel some of her symptoms related to over sedation from medications. Lamictal and Cymalbta dosing cut back and she is now more awake. Not sure why she is more somnolent here with her medications unless she takes her meds at home intermittently. Will monitor (2) Neck pain: Code(s): M54.2 - Cervicalgia Status: Acute Assessment and Plan: Patient with neck pain new onset. SHe is also having posterior headache felt related to the neck pain. Doubt related to the fall and more likely related to her prolonged bedrest. Will use heating pad. No narcotics or muscle relaxants. Encouraged her to be out of bed. (3) Weakness: Code(s): R53.1 - Weakness Status: Acute Assessment and Plan: Suspect patient has developed a viral illness that has resulted in her increasing weakness. Patient remains very weak with maximum assist with bed mobility. Also a component of poor motivation. Work up as mentioned above. Continue PT/OT. (4) Hypokalemia: Code(s): E87.6 - Hypokalemia Status: Acute Assessment and Plan: Patient had transiently low potassium but this was replaced and has been stable since. Continue to monitor. (5) Fall: Code(s): W19.XXXA - Unspecified fall, initial encounter Status: Acute Assessment and Plan: As above. Patient was being wheeled around by her as she sat on the platform of her walker. On the day of admission, she fell off the walker on to her buttock. CXR was clear. Pelvis xray showing no acute osseous abnormalities. Left shoulder x-ray showed eyry-[id number] osteoarthritis of the left acromioclavicular and glenohumeral joints. Now having neck pain but not felt related to the fall. Continue PT and OT. Heating pad. Instructed not to move patient around with her sitting on the walker. (6) URI (upper respiratory infection): Code(s): J06.9 - Acute upper respiratory infection, unspecified Status: Acute Assessment and Plan: Patient with mild URI symptoms with cough and rhinorrhea on admission. She was given Mucinex. Her symptoms have resolved. Mucinex is now p.r.n.. (7) Diabetes mellitus: Qualifiers: Diabetes mellitus complication status: with hyperglycemia Diabetes mellitus computer terminal operator insulin use: without detention use Diabetes mellitus type: type 2 Qualified Code(s): E11.65 - Type 2 diabetes mellitus with hyperglycemia Code(s): E11.9 - Type 2 diabetes mellitus without complications Status: Acute Assessment and Plan: A1c 6.8. The patient's blood glucose was reviewed on 05/08 Glucose remains well controlled. Continue AccuCheks covering with sliding scale. Hypoglycemia protocol available as needed. Continue current medications. (8) Essential (primary) hypertension: Code(s): I10 - Essential (primary) hypertension Status: Acute Assessment and Plan: Patient's blood pressure was reviewed on 05/08 Blood pressure elevated at times. Losartan was added with improvement. on losartan and amlodipine (9) 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: Qualifiers: Laterality: unspecified laterality Qualified Code(s): M05.779 - Rheumatoid arthritis with rheumatoid factor of unspecified ankle and foot without organ or systems involvement Code(s): M05.779 - Rheumatoid
[2022-05-09 18:07] LABS: Glucose Point of Care 94 mg/dl (65-105)
[2022-05-09 20:00] VITALS: PULSE 78; RESP 18; O2SAT 94
[2022-05-09] MEDS: traZODone HCL 50 MG TABLET 100 MG PO (21:26)
[2022-05-09] MEDS: amLODIPine BESYLATE 5 MG TABLET 10 MG PO (21:26)
[2022-05-09 21:39] LABS: Glucose Point of Care 144 mg/dl (65-105)
[2022-05-09 22:00] VITALS: BP 155/66; PULSE 78; RESP 18; TEMP 36.6; O2SAT 94
[2022-05-10 06:00] VITALS: BP 158/75; PULSE 83; RESP 14; TEMP 36.3; O2SAT 95
[2022-05-10 06:52] LABS: Basophils Percent Auto 0.4 % (0.2-1.2); Eosinophils Absolute Auto 0.1 K/mm3 (0-0.3); Eosinophils Percent Auto 1.3 % (0-4.4); Hematocrit 38.2 % (37.0-47.0); Hemoglobin 12.1 g/dL (12.0-15.0); Immature Granulocyte Absolute 0.12 K/mm3 (0.00-0.031); Immature Granulocyte Percent A 1.4 % (0-0.5); Lymphocytes Absolute Auto 1.19 K/mm3 (0.9-3.2); Lymphocytes Percent Auto 14.1 % (18.3-44.2); Mean Corpuscular HGB Conc 31.7 g/dl (32-36); Mean Corpuscular Hemoglobin 31.3 pg (26-34); Mean Platelet Volume 9.9 fl (7.4-10.4); Monocytes Absolute Auto 0.7 K/mm3 (0.1-0.6); Monocytes Percent Auto 8.6 % (2.6-8.5); Neutrophils Absolute Auto 6.3 K/mm3 (1.3-6.7); Neutrophils Percent Auto 74.2 % (45.5-73.1); Platelet Count Result 416 k/mm3 (150-375); Red Blood Count 3.86 M/mm3 (4.2-5.4); Red Cell Distribution Width 12.2 % (11.5-14.5); White Blood Count 8.5 K/mm3 (4.5-10.0)
[2022-05-10 07:06] LABS: Alanine Aminotransferase 23 U/L (6-35); Albumin Level 3.7 g/dL (3.5-5.1); Alkaline Phosphatase 154 U/L (38-126); Anion Gap 9 mmol/L (8-16); Aspartate Amino Transferase 27 U/L (14-36); Bilirubin,Total 0.4 mg/dL (0.2-1.3); Blood Urea Nitrogen 17 mg/dL (7-17); Calcium 9.4 mg/dL (8.4-10.2); Carbon Dioxide 31 mmol/L (22-30); Chloride 96 mmol/L (98-107); Estimated CRCL calculation 59 ml/min; Estimated Glomerular Filt Rate > 60; Glucose 141 mg/dL (65-110); Magnesium 2.2 mg/dL (1.6-2.3); Potassium 3.5 mmol/L (3.4-5.0); Sodium 136 mmol/L (137-145)
[2022-05-10 08:03] LABS: Glucose Point of Care 139 mg/dl (65-105)
[2022-05-10] MEDS: CHOLECALCIFEROL 1,000 UNITS TABLET 2000 UNITS PO (09:30)
[2022-05-10] MEDS: ASCORBIC ACID 500 MG TABLET PO (09:30)
[2022-05-10] MEDS: DULoxetine HCL 30 MG CAPSULE.DR 90 MG PO (09:30)
[2022-05-10] MEDS: ASPIRIN 81 MG CHEWABLE TABLET PO (09:30)
[2022-05-10] MEDS: ENOXAPARIN 40 MG/0.4 ML SYRINGE SUB-Q (09:30)
[2022-05-10] MEDS: FOLIC ACID 1 MG TABLET PO (09:31)
[2022-05-10] MEDS: FERROUS SULFATE 324 MG TABLET PO (09:31)
[2022-05-10] MEDS: GABAPENTIN 300 MG CAPSULE PO (09:31)
[2022-05-10 09:32] VITALS: PULSE 70
[2022-05-10] MEDS: METOPROLOL SUCCINATE EXT REL 100 MG TABCR PO (09:32)
[2022-05-10] MEDS: metFORMIN HCL XR 500 MG TAB.SR.24H PO (09:32)
[2022-05-10] MEDS: lamoTRIgine 25 MG TABLET 75 MG PO (09:32)
[2022-05-10] MEDS: PANTOPRAZOLE 40 MG TABLET PO (09:32)
[2022-05-10] MEDS: MAGNESIUM OXIDE 400 MG TABLET PO (09:32)
[2022-05-10] MEDS: LOSARTAN POTASSIUM 50 MG TABLET PO (09:32)
[2022-05-10] MEDS: ZINC SULFATE 220 MG CAPSULE PO (09:32)
[2022-05-10] MEDS: MULTIVITAMINS /C LUTEIN (CENTRUM SILVER) TABLET *BKC 1 TAB PO (09:32)
--- NOTE | 2022-05-10 10:12 | PCNFU ---
Nutrition Follow-Up Complete: Poor intake Inadequate energy intake related to poor appetite as evidenced by meal intake 25%. Goal: Adequate intake of at least 75% of meals. - Goal not being met. Patient does not like the food and does not have much appetite. Pt current nutrition is Heat healthy, consistent carb diabetic. Nutrition recommendation: Continue current care plan and monitoring. Ensure compact BID. Last recorded weight is 83.2 kg. Bowel Motility: 05/09/22: +2 BM Labs Reviewed: Na 136, Glu 139. Improved Meds Noted: Amlodopine, Novalog, losartan, metoprolol Skin: WNL Additional Notes: Patient states she is not very hungry. Monitor intake, weight, and labs and follow up in 7 days.
[2022-05-10 11:47] LABS: Glucose Point of Care 157 mg/dl (65-105)
--- NOTE | 2022-05-10 12:22 | PM.DS ---
DS: Admitting Diagnosis Discharge Date 05/10/2022 Admitting Diagnosis altered mental status DS: Discharge Diagnosis Discharge Diagnosis (1) Confusion: Code(s): R41.0 - Disorientation, unspecified Status: Acute (2) Neck pain: Code(s): M54.2 - Cervicalgia Status: Acute (3) Weakness: Code(s): R53.1 - Weakness Status: Acute (4) Hypokalemia: Code(s): E87.6 - Hypokalemia Status: Acute (5) Fall: Code(s): W19.XXXA - Unspecified fall, initial encounter Status: Acute (6) URI (upper respiratory infection): Code(s): J06.9 - Acute upper respiratory infection, unspecified Status: Acute (7) Diabetes mellitus: Qualifiers: Diabetes mellitus complication status: with hyperglycemia Diabetes mellitus snf insulin use: without refiner operator use Diabetes mellitus type: type 2 Qualified Code(s): E11.65 - Type 2 diabetes mellitus with hyperglycemia Code(s): E11.9 - Type 2 diabetes mellitus without complications Status: Acute (8) Essential (primary) hypertension: Code(s): I10 - Essential (primary) hypertension Status: Acute (9) 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: Qualifiers: Laterality: unspecified laterality Qualified Code(s): M05.779 - Rheumatoid arthritis with rheumatoid factor of unspecified ankle and foot without organ or systems involvement Code(s): M05.779 - Rheumatoid arthritis with rheumatoid factor of unspecified ankle and foot without organ or systems involvement Status: Acute DS: Summary Hospital Course Hospital Course: # altered mental status: Patient remains very weak with maximum assist with bed mobility. She was also confused and was refusing medications at times. TSH/B12/Folate levels normal. RPR nonreactive. CT brain showing no acute findings. CRP elevated to 31 but repeat UA clear. CXR was clear and remained clear on repeat. Elevated CRP could be related to her RA. Confusion has been intermittent and suspect she has underlying dementia. Also now feel some of her symptoms related to over sedation from medications. Lamictal and Cymalbta dosing cut back and she is now more awake. Not sure why she is more somnolent here with her medications unless she takes her meds at home intermittently. Will monitor # Neck pain: New onset doubt related to fall. Most likely related to prolonged bedrest. Heating and conservative management. # generalized weakness: Suspect related to viral. Remains very weak assist with bed mobility. Component off poor motivation. Workup as mentioned above. Continue PT # hypokalemia replace recheck and monitor # fall:As above. Patient was being wheeled around by her as she sat on the platform of her walker. On the day of admission, she fell off the walker on to her buttock. CXR was clear. Pelvis xray showing no acute osseous abnormalities.? Left shoulder x-ray showed [id number] osteoarthritis of the left acromioclavicular and glenohumeral joints.? Now having neck pain but not felt related to the fall. Continue PT and OT. Heating pad. Instructed not to move patient around with her sitting on the walker. # URI:Patient with mild URI symptoms with cough and rhinorrhea on admission.? She was given Mucinex.? Her symptoms have resolved.? Mucinex is now p.r.n.. # diabetes mellitus: A1c 6.8. The patient's blood glucose was reviewed on 05/08 Glucose remains well controlled.? Continue AccuCheks covering with sliding scale.? Hypoglycemia protocol available as needed.? Continue current medications. # hypertension Patient's blood pressure was reviewed on 05/08 Blood pressure elevated at times. Losartan was added with improvement.? on losartan and amlodipine # rheumatoid arthritis with positive rheumatoid factor: Patient without active synovitis.? CRP elevated but no clear source of infection.? Suspect may be related to chronic inf
[2022-05-10 12:58] LABS: EDCOVIDSCREEN Negative (Negative)
== END 2022-05-10 14:20 | DRG 153 ==
LOC: ANHED 12:24 → ANH3MEDSUR 13:07
PROVIDERS: Admitting Provider Internal Medicine; Emergency Provider Emergency Medicine; PCP Emergency Medicine; Visit Provider Internal Medicine
DX: J06.9 Acute upper respiratory infection, unspecified (principal); B97.89 Other viral agents as the cause of diseases classified elsewhere; R41.0 Disorientation, unspecified; R53.1 Weakness; T42.6X5A Adverse effect of other antiepileptic and sedative-hypnotic drugs, initial encounter; T43.215A Adverse effect of selective serotonin and norepinephrine reuptake inhibitors, initial encounter; E87.6 Hypokalemia; M54.2 Cervicalgia; E11.65 Type 2 diabetes mellitus with hyperglycemia; F03.90 Unspecified dementia, unspecified severity, without behavioral disturbance, psychotic disturbance, mood disturbance, and anxiety; I10 Essential (primary) hypertension; M05.779 Rheumatoid arthritis with rheumatoid factor of unspecified ankle and foot without organ or systems involvement; W01.0XXA Fall on same level from slipping, tripping and stumbling without subsequent striking against object, initial encounter; E11.42 Type 2 diabetes mellitus with diabetic polyneuropathy; K21.9 Gastro-esophageal reflux disease without esophagitis; E78.2 Mixed hyperlipidemia; L40.9 Psoriasis, unspecified; D64.9 Anemia, unspecified; Z20.822 Contact with and (suspected) exposure to COVID-19; M17.12 Unilateral primary osteoarthritis, left knee; H35.30 Unspecified macular degeneration; J43.9 Emphysema, unspecified; K57.90 Diverticulosis of intestine, part unspecified, without perforation or abscess without bleeding; E53.8 Deficiency of other specified B group vitamins; Z85.828 Personal history of other malignant neoplasm of skin; Z98.42 Cataract extraction status, left eye; Z98.41 Cataract extraction status, right eye; Z96.1 Presence of intraocular lens; Z87.891 Personal history of nicotine dependence
CPT/HCPCS: 36415; 70450; 71045; 72170; 73030; 80048; 80053; 80069; 81001; 82550; 82607; 82746; 82948; 83036; 83735; 84100; 84132; 84145; 84443; 85025; 85380; 86140; 86592; 87426; 96360; 97110; 97161; 97165; 97530; 97535; 99285; A9270; C9803; G0378; J0360; J1650; J1815; J7120; U0003; U0005

== ENCOUNTER → 2022-08-23 10:12 | Outpatient (CLI) | payer MEDICARE, OTHER, SELFPAY ==
--- NOTE | ~2022-08-23 | XR_ITS ---
XR elbow RT min 3V DATE: 08/23/2022 10:55 INDICATION: Right elbow pain TECHNIQUE: 4 views COMPARISON: None FINDINGS: No fracture or dislocation, periosteal reaction or bone destruction. No joint effusion. IMPRESSION: No significant abnormality Reviewed, dictated and finalized at location B. NG IN LINE SETTER IMPRESSION: No significant abnormality
--- NOTE | ~2022-08-23 | XR_ITS ---
XR shoulder RT min 2V DATE: 08/23/2022 10:55 INDICATION: Right shoulder pain TECHNIQUE: 4 views COMPARISON: October 27, 2020 right shoulder FINDINGS: Mild degenerative change at the right acromioclavicular joint. Mild osteoarthritis at the r ight glenohumeral joint. No fracture or dislocation, periosteal reaction or bone destruction. No sign ificant abnormal calcification of the right shoulder. IMPRESSION: Mild degenerative change Reviewed, dictated and finalized at location B. K TENDER IMPRESSION: Mild degenerative change
--- NOTE | ~2022-08-23 | XR_ITS ---
XR wrist RT 2V DATE: 08/23/2022 10:54 INDICATION: Right wrist pain. Arthritis. TECHNIQUE: 4 views COMPARISON: None FINDINGS: There is severe narrowing and mild eburnation at the triscaphe joint. There is prominent rachel int space narrowing and very prominent spurring at the first carpometacarpal joint consistent with [place] osteoarthritis. No fracture or dislocation, periosteal reaction or bone destruction. IMPRESSION: Osteoarthritis at the triscaphe and particularly first carpometacarpal joints Reviewed, dictated and finalized at location B. CO ARTIST IMPRESSION: Osteoarthritis at the triscaphe and particularly first carpometacar pal joints
== END ==
PROVIDERS: PCP Internal Medicine; Visit Provider Internal Medicine
DX: M06.09 Rheumatoid arthritis without rheumatoid factor, multiple sites (principal); M45.0 Ankylosing spondylitis of multiple sites in spine; Z79.899 Other long term (current) drug therapy; M25.511 Pain in right shoulder; M19.031 Primary osteoarthritis, right wrist
CPT/HCPCS: 73030; 73080; 73100

== ENCOUNTER 2022-10-24 12:26 | Emergency (ER) | payer MEDICARE, OTHER, SELFPAY ==
--- NOTE | ~2022-10-24 | CT_ITS ---
EXAMINATION: CT brain wo con INDICATION: Head injury COMPARISON: None TECHNIQUE: Standard unenhanced head CT. The dose-length product (DLP) was 605.33 mGy-cm. The mA was a djusted according to patient size. Iterative reconstruction technique was employed. FINDINGS: There is no acute intraparenchymal hemorrhage. No evidence of mass lesion. No evidence of a cute infarction. There is moderate periventricular and subcortical hypodensity probably related to sm all vessel ischemic disease. There is moderate prominence of the sulci and ventricles related to cere bral atrophy. Intracranial calcified cerebral atherosclerosis is noted. There are no extra-axial shamar ections. There is no mass effect or midline shift. Changes in the globes are likely from ocular lens surgery. The visualized sinuses and mastoid air cells are well aerated. IMPRESSION: 1. No acute intracranial abnormality. 2. Age related findings. Reviewed, dictated and finalized at location B. MOTIVE MECHANIC APPRENTICE
--- NOTE | ~2022-10-24 | XR_ITS ---
EXAMINATION: XR wrist RT min 3V DATE: 10/24/2022 14:36 INDICATION: Right wrist pain. Fall. TECHNIQUE: 4 views of right wrist were obtained. COMPARISON: Right wrist radiographs 08/23/2022 FINDINGS: Bone alignment is normal. No fracture. There is severe osteoarthritis of triscaphe joint an d first carpometacarpal joint. IMPRESSION: 1. Polyarticular osteoarthritis. Reviewed, dictated and finalized at location A. 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
--- NOTE | ~2022-10-24 | CT_ITS ---
EXAMINATION: CT cervical spine wo con DATE: 10/24/2022 14:25 INDICATION: Head injury TECHNIQUE: Computed tomography (CT) of the cervical spine was performed without intravenous contrast. The dose-length product (DLP) was 496.13 mGy-cm. Automated exposure control and iterative reconstruc tion technique were employed. COMPARISON: 03/21/2022 FINDINGS: Bone alignment is normal. There is no fracture. There is severe loss of intervertebral disc space height at C5-6 and C6-7. There is multilevel severe facet and uncovertebral joint osteoarthrit is. The odontoid process is intact. Small degenerative osteophytes project from the anterior endplate s of multiple vertebral bodies. The vertebral body heights are normal. The prevertebral soft tissues are unremarkable. IMPRESSION: 1. Severe cervical spondylosis without acute findings or significant interval change. Reviewed, dictated and finalized at location B. 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
--- NOTE | ~2022-10-24 | XR_ITS ---
EXAMINATION: XR wrist LT min 3V DATE: 10/24/2022 14:36 INDICATION: Left wrist pain TECHNIQUE: Posteroanterior, ulnar deviation, oblique, and lateral views of the left wrist were obtain ed. COMPARISON: 01/12/2021 FINDINGS: Bone alignment is normal. There is no fracture. There is soft tissue swelling of the wrist. Osteoarthritis is noted. IMPRESSION: 1. No acute osseous abnormality. Reviewed, dictated and finalized at location B. Y BUTCHER
--- NOTE | ~2022-10-24 | XR_ITS ---
EXAMINATION: XR chest 1V DATE: 10/24/2022 14:36 INDICATION: Fall. TECHNIQUE: A single frontal view of the chest was obtained. COMPARISON: Chest single view 05/06/2022, CT abdomen and pelvis 04/12/2022 FINDINGS: The chest demonstrates clear lungs without pneumonia, pleural effusion, or pneumothorax. Th e heart size is normal. IMPRESSION: 1. No acute cardiopulmonary disease. Reviewed, dictated and finalized at location A. 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
--- NOTE | ~2022-10-24 | CT_ITS ---
EXAMINATION: CT pelvis wo con DATE: 10/24/2022 14:25 INDICATION: Right hip and coccyx pain. TECHNIQUE: Computed tomography (CT) of the pelvis was performed without intravenous contrast. Automat ed exposure control and iterative reconstruction technique were employed. The dose-length product was 524.31 mGy-cm. COMPARISON: CT pelvis 04/12/2022 FINDINGS: There is a 3.2 cm uterine fibroid. There is diverticulosis of the colon without evidence of diverticulitis. There are no pathologically enlarged lymph nodes. There is no free intraperitoneal f luid. There is lumbar dextroscoliosis and severe spondylosis. There is severe right hip osteoarthriti s and mild left hip osteoarthritis. IMPRESSION: 1. Severe right hip osteoarthritis and mild left hip osteoarthritis. Reviewed, dictated and finalized at location A. 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
--- NOTE | ~2022-10-24 | CT_ITS ---
EXAMINATION: CT lumbar spine wo con DATE: 10/24/2022 14:25 INDICATION: Low back pain. Fall. TECHNIQUE: Computed tomography (CT) of the lumbar spine was performed without intravenous contrast. A utomated exposure control and iterative reconstruction technique were employed. The dose-length produ ct was 898.67 mGy-cm. COMPARISON: CT abdomen and pelvis 04/12/2022, thoracic spine CT 03/22/2022 FINDINGS: There is a 2.2 cm hemorrhagic cyst in left kidney. There is 18 degrees dextroscoliosis of l umbar spine. There is a compression fracture of T12 with less than 1/5 loss of height. There is sever kandi decreased disc height at L1-L2 and L2-L3 and moderately decreased disc height at L3-L4. There is severely decreased disc height at L4-L5 with interbody fusion. L5 is a transitional segment. The foll owing disc levels are specifically discussed: L1-L2: The disc is bulging. There is mild bilateral facet joint osteoarthritis. There is mild right a nd moderate left neural foraminal stenosis. There is mild central canal stenosis. L2-L3: The disc is bulging. There is severe bilateral facet joint osteoarthritis. There is moderate b ilateral neural foraminal stenosis. There is moderate central canal stenosis. L3-L4: The disc is bulging. There is severe bilateral facet joint osteoarthritis. There is moderate b ilateral neural foraminal stenosis. There is severe central canal stenosis. L4-L5: The disc is bulging. There is severe bilateral facet joint osteoarthritis. There is moderate r ight and mild left neural foraminal stenosis. There is mild central canal stenosis with posterior dec ompression. L5-S1: The disc does not extend beyond the endplate margin. There is no facet joint osteoarthritis. T here is no neural foraminal stenosis. There is no central canal stenosis. IMPRESSION: 1. Acute versus subacute T12 compression fracture. 2. Severe lumbar spondylosis. 3. Lumbar dextroscoliosis. Reviewed, dictated and finalized at location A. 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
[2022-10-24 12:31] VITALS: BP 186/78; PULSE 75; RESP 18; TEMP 36.4; O2SAT 98
--- NOTE | 2022-10-24 13:23 | ED.FALL ---
HPI - Fall General Chief Complaint: Fall Stated Complaint: multiple falls this week Time Seen by Provider: 10/24/22 12:54 Source: patient Mode of arrival: ambulatory Limitations: no limitations History of Present Illness HPI Narrative: Patient is a 76 y/o female who presents to the ED with c/o multiple falls. Patient reports she fell at home on Saturday and of last week. She has a long hx of arthritis and uses a walker for assistance with ambulation. She reports she lost her balance trying to bend over on Saturday and fell backwards against a wall, landing straight on her bottom. She fell on attempting to get into her 's truck in which her walker rolled away from her, again losing her balance. Patient did hit her head in the 2nd fall. Denied LOC, denied ever having prodromal symptoms prior to the fall or dizziness, lightheadedness, nausea, vision changes since then. She c/o multiple areas of pain, to her R hip, low back, bilateral wrists, bilateral shoulders. Patient has been able to ambulate since falls. She was Rx'd tramadol by her PCP but denies improvement of pain. Last took Tramadol and Tylenol last night. Related Data Home Medications Medication Instructions Recorded Confirmed cholecalciferol (vitamin D3) 50 50 mcg PO DAILY 06/28/20 06/05/22 mcg (2,000 unit) capsule qlhlqryagrcy-uwtvymkv-zyxefx tablet 1 tablet PO DAILY 06/28/20 06/05/22 biotin 5,000 mcg disintegrating 5,000 mcg PO DAILY 08/18/21 06/05/22 tablet trazodone 50 mg tablet 100 mg PO HS 09/16/21 06/05/22 Acetaminophen Extra Strength 1,000 mg PO TID 03/22/22 06/05/22 ascorbic acid (vitamin C) 500 mg 500 mg PO DAILY 03/22/22 06/05/22 tablet (Vitamin C) tramadol 50 mg tablet 50 mg PO TID PRN Pain Rated 4-6 03/22/22 06/05/22 sulfasalazine 500 mg tablet PO 07/30/22 tablet,delayed release Allergies Allergy/AdvReac Type Severity Reaction Status Date / Time cephalexin Allergy Severe Anaphylaxis Verified 07/30/22 13:13 Review of Systems Review of Systems: CONSTITUTIONAL: Denies fever, chills, or sweats. EYES: Denies vision changes. CARDIOVASCULAR: Denies chest pain. RESPIRATORY: Denies dyspnea. GASTROINTESTINAL: Denies abdominal pain, nausea, vomiting, incontinence, or diarrhea. GENITOURINARY: Denies incontinence, dysuria or hematuria. SKIN: Denies rash or itching. MUSCULOSKELETAL: See HPI. NEUROLOGIC: See HPI. All systems reviewed & are unremarkable except as noted in HPI and below PMFSH Past Medical History Medical History Anal fissure Anemia Ankylosing spondylitis Anxiety B12 deficiency Bronchitis Closed nondisplaced fracture of proximal phalanx of lesser toe Constipation due to opioid therapy Depression Diabetes Diverticulitis Diverticulosis of colon (without mention of hemorrhage) Emphysema of lung Fatty liver Gastro-esophageal reflux disease without esophagitis History of basal cell carcinoma (BCC) Macular degeneration Mixed hyperlipidemia Obstructive sleep apnea Osteoarthritis of left knee Peripheral neuropathy Psoriasis 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 Family History Mother Hypertension, Onset Age: 97 Father Family history of malignant neoplasm Family history of lung cancer, Onset Age: 94 Colon cancer Sibling Family history of
[2022-10-24] MEDS: ONDANSETRON INJ 4 MG/2 ML VIAL IV PUSH (14:06)
[2022-10-24] MEDS: MORPHINE SULFATE (*CRX) 4 MG/ML INJ IV PUSH (14:06)
== END 2022-10-24 18:02 | disposition home or self-care (01) ==
PROVIDERS: Emergency Provider Physician Assistant; PCP Emergency Medicine
DX: S22.080A Wedge compression fracture of T11-T12 vertebra, initial encounter for closed fracture (principal); F41.9 Anxiety disorder, unspecified; F32.9 Major depressive disorder, single episode, unspecified; E11.9 Type 2 diabetes mellitus without complications; K21.9 Gastro-esophageal reflux disease without esophagitis; E78.5 Hyperlipidemia, unspecified; G47.30 Sleep apnea, unspecified; M19.90 Unspecified osteoarthritis, unspecified site; W19.XXXA Unspecified fall, initial encounter
CPT/HCPCS: 70450; 71045; 72125; 72131; 72192; 73110; 96365; 96375; 99284; J0131; J2270; J2405

== ENCOUNTER 2022-12-21 15:04 | Outpatient (CLI) | payer MEDICARE, OTHER, SELFPAY ==
[2022-12-24 07:49] LABS: Kit Draw Collected
== END 2022-12-21 15:05 | disposition home or self-care (01) ==
LOC: ANHGOSHLAB 15:06
PROVIDERS: PCP Emergency Medicine; Visit Provider Nurse Practitioner Family
DX: E11.65 Type 2 diabetes mellitus with hyperglycemia (principal); R29.6 Repeated falls; I10 Essential (primary) hypertension; E87.1 Hypo-osmolality and hyponatremia; E78.2 Mixed hyperlipidemia; R53.1 Weakness
CPT/HCPCS: 36415

== ENCOUNTER 2022-12-25 11:46 | Emergency (ER) | payer MEDICARE, OTHER, SELFPAY ==
--- NOTE | ~2022-12-25 | CT_ITS ---
EXAMINATION: CT abdomen pelvis w con DATE: 12/25/2022 13:38 INDICATION: Left lower quadrant pain TECHNIQUE: Computed tomography (CT) of the abdomen and pelvis was performed with 100 cc Omnipaque 350 intravenous contrast. The dose-length product was 652.38 mGy-cm. Automated exposure control and iter ative reconstruction technique were employed. COMPARISON: No prior studies for comparison. FINDINGS: Lung bases are unremarkable. No significant pleural or pericardial effusion. Heart size nor mal. There is a duodenal diverticulum. There is atherosclerosis of the aorta without aneurysm. No lym phadenopathy. Fatty infiltration of the liver. Gallbladder is distended. The spleen, pancreas, adrenal glands are u nremarkable. There are bilateral renal cysts. Nonobstructive bowel pattern. Colonic diverticulosis wi thout evidence for diverticulitis. There is abnormal thickening of the endometrium in a presumably po stmenopausal female. Recommend correlation with ultrasound. There is calcified exophytic uterine fibr oid. No free air or free fluid. Severe lumbar spondylosis. There is a superior endplate compression f racture of L1, possibly acute or subacute. Bladder wall is mildly thickened. IMPRESSION: 1. No acute abdominal abnormality. 2: New L1 superior endplate compression fracture, possibly acute or subacute. 3: Abnormal thickening of the endometrium, suspicious in a postmenopausal female. Recommend correlati on with ultrasound. 4: Uterine fibroids. 5: Bladder wall thickening. Cannot exclude cystitis. Reviewed, dictated and finalized at location L. IMPRESSION: 1. No acute abdominal abnormality. 2: New L1 superior endplate compression fracture, possibly acute or subacute. 3: Abnormal thickening of the endometrium, suspicious in a postmenopausal femal e. Recommend correlation with ultrasound. 4: Uterine fibroids. 5: Bladder wall thickening. Cannot exclude cystitis.
--- NOTE | ~2022-12-25 | XR_ITS ---
EXAMINATION: XR chest 2V DATE: 12/25/2022 12:32 INDICATION: Left chest pain. TECHNIQUE: Frontal and lateral views of the chest were obtained on 3 radiographs. COMPARISON: Chest single view 10/24/2022 FINDINGS: There is mild atelectasis in right lower lung zone. No pleural effusion or pneumothorax. Th e heart size is normal. IMPRESSION: 1. Mild atelectasis in right lower lung zone. Reviewed, dictated and finalized at location A.
[2022-12-25 11:49] VITALS: BP 138/66; PULSE 108; RESP 16; TEMP 36.6; O2SAT 96
--- NOTE | 2022-12-25 11:53 | ECG_ITS ---
Measurements Intervals [place] Rate: 108 P: 9 AR: 163 QRS: -5 QRSD: 98 T: 18 QT: 341 QTc: 459 Interpretive Statements SINUS TACHYCARDIA BASELINE ARTIFACT MODERATE VOLTAGE CRITERIA FOR LVH, CONSIDER NORMAL VARIANT INFERIOR MYOCARDIAL INFARCTION , PROBABLY OLD ABNORMAL ECG COMPARED TO ECG 03/21/2022 23:28:08 HEART RATE HAS INCREASED Electronically Signed On 12-25-2022 16:27:39 CDT by Garrett Rivas M.D.
[2022-12-25] MEDS: ASPIRIN 81 MG CHEWABLE TABLET 324 MG PO (12:01)
[2022-12-25 12:03] VITALS: PULSE 112
[2022-12-25 12:24] LABS: Basophils Percent Auto 0.3 % (0.2-1.2); Eosinophils Absolute Auto 0.1 K/mm3 (0-0.3); Eosinophils Percent Auto 0.6 % (0-4.4); Hematocrit 43.4 % (37.0-47.0); Hemoglobin 14.2 g/dL (12.0-15.0); Immature Granulocyte Absolute 0.06 K/mm3 (0.00-0.031); Immature Granulocyte Percent A 0.7 % (0-0.5); Lymphocytes Absolute Auto 1.63 K/mm3 (0.9-3.2); Lymphocytes Percent Auto 18.6 % (18.3-44.2); Mean Corpuscular HGB Conc 32.7 g/dl (32-36); Mean Corpuscular Hemoglobin 31.8 pg (26-34); Mean Corpuscular Volume 97.3 fl (80-100); Mean Platelet Volume 9.9 fl (7.4-10.4); Monocytes Absolute Auto 0.8 K/mm3 (0.1-0.6); Monocytes Percent Auto 8.8 % (2.6-8.5); Neutrophils Absolute Auto 6.2 K/mm3 (1.3-6.7); Platelet Count Result 322 k/mm3 (150-375); Red Blood Count 4.46 M/mm3 (4.2-5.4); Red Cell Distribution Width 15.7 % (11.5-14.5); White Blood Count 8.8 K/mm3 (4.5-10.0)
[2022-12-25 12:33] LABS: Prothrombin Time 12.7 Seconds (11.1-14.7)
[2022-12-25 12:34] LABS: Partial Thromboplastin Time 28.5 SECONDS (22.3-36.8)
[2022-12-25 13:11] LABS: Alanine Aminotransferase 22 U/L (6-35); Albumin Level 4.3 g/dL (3.5-5.1); Alkaline Phosphatase 94 U/L (38-126); Anion Gap 8 mmol/L (8-16); Aspartate Amino Transferase 26 U/L (14-36); Bilirubin,Total 0.7 mg/dL (0.2-1.3); Blood Urea Nitrogen 18 mg/dL (7-17); Calcium 8.5 mg/dL (8.4-10.2); Carbon Dioxide 27 mmol/L (22-30); Chloride 101 mmol/L (98-107); Estimated CRCL calculation 56 ml/min; Estimated Glomerular Filt Rate > 60; Glucose 165 mg/dL (65-110); Potassium 3.4 mmol/L (3.4-5.0); Sodium 136 mmol/L (137-145)
[2022-12-25 13:23] LABS: Troponin I 0.028 ng/mL (0.000-0.034)
--- NOTE | 2022-12-25 14:14 | ED.GENADULT ---
HPI - General Adult General Chief complaint: Chest Pain Stated complaint: sick with L sided abdominal/ribcage pain Time Seen by Provider: 12/25/22 12:18 Source: patient and family Mode of arrival: ambulatory Limitations: no limitations History of Present Illness HPI narrative: 77-year-old with a history of hypertension, diverticulitis, L1 compression fracture here with complaints of upper abdominal pain which started on the left side migrating to the right side, increases with movement. She states she has occasional pain in the lower part of the chest denies any shortness of breath. No history of nausea or vomiting. Onset (ago): day(s) Location: chest and abdomen Radiation: back Severity: moderate Quality: aching Pain Consistency: intermittent Relieving factors: rest Exacerbating factors: movement Associated symptoms: denies other symptoms Treatments prior to arrival: none Related Data Home Medications Medication Instructions Recorded Confirmed cholecalciferol (vitamin D3) 50 50 mcg PO DAILY 06/28/20 12/21/22 mcg (2,000 unit) capsule mmjzvsubyirm-eyxpdbxg-mtktro tablet 1 tablet PO DAILY 06/28/20 12/21/22 trazodone 50 mg tablet 100 mg PO HS 09/16/21 12/21/22 Acetaminophen Extra Strength 1,000 mg PO TID 03/22/22 12/21/22 tramadol 50 mg tablet 50 mg PO TID PRN Pain Rated 4-6 03/22/22 12/21/22 omeprazole 20 mg capsule,delayed 40 mg .Route .COMPLEX 12/21/22 12/21/22 release Allergies Allergy/AdvReac Type Severity Reaction Status Date / Time cephalexin Allergy Severe Anaphylaxis Verified 12/25/22 11:58 Review of Systems Review of Systems: All systems reviewed & are unremarkable except as noted in HPI and below Constitutional: Constitutional: Reports no additional constitutional complaints Eyes: Eyes: Reports no additional eye complaints ENT: Reports system reviewed and no additional complaints, except as documented Cardiovascular: Cardiovascular: Reports as per HPI Respiratory: Respiratory: Reports no additional respiratory complaints Gastrointestinal: Gastrointestinal: Reports as per HPI Musculoskeletal: Musculoskeletal: Reports as per HPI Integumentary/Breasts: Skin/Breast: Reports system reviewed and no additional complaints, except as docu [facility] Past Medical History Medical History Anal fissure Anemia Ankylosing spondylitis Anxiety B12 deficiency Bronchitis Closed nondisplaced fracture of proximal phalanx of lesser toe Constipation due to opioid therapy Depression Diabetes Diverticulitis Diverticulosis of colon (without mention of hemorrhage) Emphysema of lung Fatty liver Gastro-esophageal reflux disease without esophagitis History of basal cell carcinoma (BCC) Macular degeneration Mixed hyperlipidemia Obstructive sleep apnea Osteoarthritis of left knee Peripheral neuropathy Psoriasis 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 Family History Mother Hypertension, Onset Age: 97 Father Family history of malignant neoplasm Family history of lung cancer, Onset Age: 94 Colon cancer Sibling Family history of blood dyscrasia Other Family history of arthritis Family history of seizure disorder No family history of cardiovascular disease No family history of diabetes mellitus No family history of hypertension Prediabetes Social
[2022-12-25 14:16] LABS: Appearance Urine Clear (Clear); Bacteria Urine None Seen /hpf; Bilirubin Urine 1+ (Negative); Blood Urine Negative (Negative); Color Urine Dark Yellow (Yellow); Glucose Urine UA Negative (Negative); Granular Casts Urine Present /lpf; Hyaline Casts Urine Present /lpf; Ketones Urine 1+ mg/dL (Negative); Leukocyte Esterase Ur Negative LEU/UL (Negative); Nitrate Urine Negative (Negative); Non Pathogenic Casts >20; Protein Urine 1+ mg/dL (Negative); RBC Urine 0-2 /hpf (0-2); Squamous Epithelial Cell Urine None seen /hpf (Few); Urobilinogen Urine 0.2 mg/dL (<2.0); WBC Urine 0-5 /hpf
[2022-12-25 14:28] LABS: Lipase 42 U/L (23-300)
[2022-12-25 14:29] LABS: Specific Grav Ur 1.042 (1.001-1.035)
[2022-12-25 14:30] LABS: Add Urine Microscopic? YES
[2022-12-25 14:42] VITALS: BP 180/91; PULSE 91; RESP 18; O2SAT 95
== END 2022-12-25 14:47 | disposition home or self-care (01) ==
PROVIDERS: Emergency Medicine; Emergency Provider Family Medicine; PCP Emergency Medicine
DX: R07.89 Other chest pain (principal); M54.10 Radiculopathy, site unspecified; J43.9 Emphysema, unspecified; E11.42 Type 2 diabetes mellitus with diabetic polyneuropathy; G47.33 Obstructive sleep apnea (adult) (pediatric); H35.30 Unspecified macular degeneration; E78.2 Mixed hyperlipidemia; E53.8 Deficiency of other specified B group vitamins; M17.12 Unilateral primary osteoarthritis, left knee; M05.879 Other rheumatoid arthritis with rheumatoid factor of unspecified ankle and foot; K21.9 Gastro-esophageal reflux disease without esophagitis; Z85.828 Personal history of other malignant neoplasm of skin; Z98.42 Cataract extraction status, left eye; Z98.41 Cataract extraction status, right eye; Z96.1 Presence of intraocular lens; Z87.891 Personal history of nicotine dependence; Z66 Do not resuscitate; D25.9 Leiomyoma of uterus, unspecified; R93.41 Abnormal radiologic findings on diagnostic imaging of renal pelvis, ureter, or bladder; R93.89 Abnormal findings on diagnostic imaging of other specified body structures; Z79.84 Long term (current) use of oral hypoglycemic drugs; M48.56XA Collapsed vertebra, not elsewhere classified, lumbar region, initial encounter for fracture; R94.31 Abnormal electrocardiogram [ECG] [EKG]; R00.0 Tachycardia, unspecified
CPT/HCPCS: 36415; 71046; 74177; 80053; 81001; 83690; 84484; 85025; 85610; 85730; 93005; 99284; A9270; Q9967

== ENCOUNTER 2023-01-11 13:10 | Outpatient (CLI) | payer MEDICARE, OTHER, SELFPAY ==
--- NOTE | ~2023-01-11 | DEXA_ITS ---
Bone Density Report Name: JULIETTE LEE Age: 77 Sex: Female Ethnicity: White Date of : 1945 Indication: postmenopausal; screening for osteoporosis; height loss; prior fracture; cancer; rheumatoid arthritis; Referring Provider: CJ, BETH Miranda Study: Bone densitometry was performed. Exam Date: January 11, 2023 Accession number: [id number] Bone Density: Region BMD T-score Z-score Classification AP Spine(L1, L2, L3) 1.029 0.1 2.6 Normal Femoral Neck (Left) 0.601 -2.2 -0.1 Osteopenia Total Hip (Left) 0.675 -2.2 -0.3 Osteopenia Femoral Neck (Right) 0.662 -1.7 0.5 Osteopenia Total Hip (Right) 0.793 -1.2 0.7 Osteopenia Total Hip Mean 0.734 -1.7 0.2 Osteopenia World Health Organization criteria for BMD impression classify patients as: Normal (T-score at or above -1.0), Osteopenia (T-score between -1.0 and -2.5), or Osteoporosis (T-score at or below -2.5). 10-year Fracture Risk: FRAX not reported because: Prior hip or vertebral fracture Clinical Information Provided by Patient: Have had a previous hip or vertebral fracture Has had a low trauma fracture Has rheumatoid arthritis Has used the following medications: Prolia (i.e. denosumab) Has the following medical conditions: Cancer Patient maximum height was 62 Menopause Age: 40 No regular weight bearing exercise Does not regularly consume dairy products Drinks caffeinated beverages Onset of menses at age 11 Number of children 3 Impression: The patient has low bone mass, based on the Left Total Hip T-score. The patient has risk factors, including: previous fracture. Discussion: INCREASED RISK OF FRACTURE DUE TO HISTORY OF FRACTURE. The patient's previous fracture puts the patient at high risk of a future fracture. In untreated patients, the risk of osteoporotic fracture increases approximately two-fold for each 1.0 SD decrease in T-score. Low bone density is not the only risk factor for fracture; also consider factors such as patient's age, frailty or poor health, risk of falling, risk of injury, previous osteoporotic fracture, family history of osteoporosis, cigarette smoking, low body weight, etc. Not everyone with a low trauma fracture has osteoporosis; osteomalacia and other metabolic bone disorders should also be considered. Patients who have osteoporosis should be evaluated for specific diseases and conditions (secondary causes) that may cause or contribute to bone loss and fracture risk. National Osteoporosis Foundation (NOF) recommends pharmacologic intervention for patients with a prior hip or vertebral fracture regardless of BMD T-score. The patient should follow a healthful lifestyle (good nutrition with adequate calcium and vitamin D, and appropriate weight-bearing exercise). Follow-Up: Consider a repeat BMD and Vertebral Fracture Asses
== END 2023-01-11 13:11 | disposition home or self-care (01) ==
LOC: ANHIMG 13:12
PROVIDERS: PCP Emergency Medicine; Visit Provider Internal Medicine
DX: M06.09 Rheumatoid arthritis without rheumatoid factor, multiple sites (principal); M45.0 Ankylosing spondylitis of multiple sites in spine; R25.1 Tremor, unspecified; Z79.899 Other long term (current) drug therapy; M85.852 Other specified disorders of bone density and structure, left thigh; M85.851 Other specified disorders of bone density and structure, right thigh
CPT/HCPCS: 77080

== ENCOUNTER 2023-02-19 19:37 | Emergency (ER) | payer MEDICARE, OTHER, SELFPAY ==
[2023-02-19 19:48] VITALS: BP 169/69; PULSE 73; RESP 20; TEMP 37; O2SAT 95
[2023-02-19] MEDS: methylPREDNISolone SOD SUCC 125 MG VIAL IM (20:03)
--- NOTE | 2023-02-19 20:11 | ED.GENADULT ---
HPI - General Adult General Chief complaint: Skin/Abscess/Foreign Body Stated complaint: Skin Problem Source: patient Mode of arrival: ambulatory Limitations: no limitations History of Present Illness HPI narrative: Patient presents for evaluation of pruritus. Symptom onset several weeks ago. Symptoms have been intermittent. She actually had to medical appointments scheduled for evaluation but canceled both of them due to interval improvement. She had an appointment scheduled for tomorrow but canceled that. She had recurrence of her symptoms today. No new lotions, soaps, detergents, topical products, medications. She has tried some topical products with minimal improvement in her symptoms or after. She has also tried Benadryl. She has underlying autoimmune disease. She has not been on steroids recently but typically responds well to them. Denies any difficulty breathing or swallowing. Itching primarily is to the arms but she does get some symptoms to her chest. Related Data Home Medications Medication Instructions Recorded Confirmed cholecalciferol (vitamin D3) 50 50 mcg PO DAILY 06/28/20 12/21/22 mcg (2,000 unit) capsule lwfdmvvjlfsz-upwoiddi-szrqvy tablet 1 tablet PO DAILY 06/28/20 12/21/22 trazodone 50 mg tablet 100 mg PO HS 09/16/21 12/21/22 Acetaminophen Extra Strength 1,000 mg PO TID 03/22/22 12/21/22 tramadol 50 mg tablet 50 mg PO TID PRN Pain Rated 4-6 03/22/22 12/21/22 omeprazole 20 mg capsule,delayed 40 mg .Route .COMPLEX 12/21/22 12/21/22 release Allergies Allergy/AdvReac Type Severity Reaction Status Date / Time cephalexin Allergy Severe Anaphylaxis Verified 02/19/23 19:48 Review of Systems Review of Systems: CONSTITUTIONAL: Denies fever, chills, or sweats. EYES: Denies visual changes, redness, or discharge. ENT: Denies rhinorrhea, congestion, sore throat, or otalgia. CARDIOVASCULAR: Denies chest pain, palpitations, or edema. RESPIRATORY: Denies cough or dyspnea. GASTROINTESTINAL: Denies abdominal pain, nausea, vomiting, or diarrhea. GENITOURINARY: Denies dysuria or hematuria. SKIN: Reports itching to bilateral arms and chest MUSCULOSKELETAL: Denies back pain, joint pain, or myalgia. NEUROLOGIC: Denies headache, numbness, dizziness, or weakness. PSYCHIATRIC: Denies anxiety or depression. 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 Family History Mother Hypertension, Onset Age: 97 Father Family history of malignant neoplasm Family history of lung cancer, Onset Age: 94 Colon cancer Sibling Family history of blood dyscrasia Other Family history of arthritis Family history of seizure disorder No family history of cardiovascular disease No family history of d
== END 2023-02-19 20:17 | disposition home or self-care (01) ==
PROVIDERS: Emergency Provider Nurse Practitioner; PCP Emergency Medicine
DX: L30.9 Dermatitis, unspecified (principal); Z87.891 Personal history of nicotine dependence; K76.0 Fatty (change of) liver, not elsewhere classified; K21.9 Gastro-esophageal reflux disease without esophagitis; E78.2 Mixed hyperlipidemia; E11.42 Type 2 diabetes mellitus with diabetic polyneuropathy; M45.9 Ankylosing spondylitis of unspecified sites in spine; J43.9 Emphysema, unspecified; Z85.828 Personal history of other malignant neoplasm of skin; H35.30 Unspecified macular degeneration; M17.12 Unilateral primary osteoarthritis, left knee; Z98.42 Cataract extraction status, left eye; Z98.41 Cataract extraction status, right eye; Z96.1 Presence of intraocular lens
CPT/HCPCS: 96372; 99213; G0463; J2930

== ENCOUNTER 2023-03-16 20:07 | Observation (INO) | payer MEDICARE, OTHER, SELFPAY ==
--- NOTE | ~2023-03-16 | CT_ITS ---
EXAMINATION: CT lumbar spine wo con DATE: 03/16/2023 23:38 INDICATION: Multiple falls. Lower back pain. Urinary retention. TECHNIQUE: Computed tomography (CT) of the lumbar spine was performed without intravenous contrast. A utomated exposure control and iterative reconstruction technique were employed. The dose-length produ ct was 1337.40 mGy-cm. COMPARISON: 10/24/2022 FINDINGS: 20 degrees lumbar dextroscoliosis. Transitional L1 segment with unfused riblet-like right-sided trans verse process. Transitional sacralized L5 segment. Sagittal alignment is normal. Increasing sclerosis along the previously acute T12 burst fracture along with progression of previously minimal, now one third anterior vertebral body height loss. 3-4 mm retropulsion. Remaining vertebral body heights are normal. No other acute fractures identified. Severe disc height loss with left-sided sclerotic endpla te changes at L2-L3. Additional severe left-sided disc height loss at L1-L2. Moderate disc height los s at L3-L4. Severe disc height loss and osseous fusion across the right side of the L4-L5 disc space. Vacuum phenomena at the T11-T12 disc space which is widened anteriorly due to the T12 burst fracture . Unchanged 2.2 cm intermediate attenuation proteinaceous/hemorrhagic cyst at the left kidney. The fo llowing disc levels are specifically discussed: T11-T12: Mild central canal stenosis resulting from a 3-4 mm retropulsion of the superior aspect of t he posterior wall of the T12 vertebral body. There is mild bilateral facet joint osteoarthritis. Ther e is mild bilateral neural foraminal stenosis. T12-L1: Disc is mildly bulging. There is left and mild right facet joint osteoarthritis. There is mil d bilateral neural foraminal stenosis. There is mild central canal stenosis. L1-L2: Posterior disc osteophyte complex. There is mild bilateral facet joint osteoarthritis. There i s mild right and moderate left neural foraminal stenosis. There is mild central canal stenosis. L2-L3: Disc is bulging. There is increased epidural fat posteriorly. There is moderate bilateral face t joint osteoarthritis. There is moderate left and mild to moderate right neural foraminal stenosis. There is moderate central canal stenosis. L3-L4: Disc is bulging. There is severe bilateral facet joint osteoarthritis. There is moderate bilat eral neural foraminal stenosis. There is central canal stenosis, moderate to severe just above level of the disc space resulting from increased anterior epidural fat, moderate at the level of the disc s pace and mild displacement of the disc space where there has been a prior posterior decompression wit h right-sided L4 hemilaminectomy. L4-L5: Disc is bulging. There is moderate left and severe right facet joint osteoarthritis. There is mild left and moderate right neural foraminal stenosis. There is mild central canal stenosis. L5-S1: Likely developmental fusion across the margins of the facet joints and rudimentary disc space. There is no neural foraminal stenosis. There is no central canal stenosis. IMPRESSION: 1. Interval progression of now 1 third anterior vertebral body height loss at T12 burst fracture whic h appeared acute on prior study from 10/24/2022. 2. 20 degrees lumbar dextroscoliosis with severe spondylosis. Reviewed, dictated and finalized at location A. IMPRESSION: 1. Interval progression of now 1 third anterior vertebral body height loss at T 12 burst fracture which appeared acute on prior study from 10/24/2022. 2. 20 degrees lumbar dextroscoliosis with severe spondylosis.
--- NOTE | ~2023-03-16 | XR_ITS ---
EXAMINATION: XR chest 1V portable INDICATION: Weakness and fatigue TECHNIQUE: Portable AP chest at 2218 hours COMPARISON: 12/25/2022 FINDINGS: The lungs are free of acute opacities. No pleural effusion or pneumothorax. The heart size is normal. There is moderate osteoarthritis of the shoulders. IMPRESSION: 1. No acute cardiopulmonary abnormality. Reviewed, dictated and finalized at location A.
[2023-03-16 20:17] VITALS: BP 148/70; PULSE 69; RESP 17; TEMP 36.4; O2SAT 94
[2023-03-16 20:41] LABS: Alanine Aminotransferase 23 U/L (6-35); Albumin Level 4.3 g/dL (3.5-5.1); Alkaline Phosphatase 65 U/L (38-126); Anion Gap 10 mmol/L (8-16); Aspartate Amino Transferase 25 U/L (14-36); Bilirubin,Total 0.4 mg/dL (0.2-1.3); Blood Urea Nitrogen 12 mg/dL (7-17); Calcium 9.5 mg/dL (8.4-10.2); Carbon Dioxide 28 mmol/L (22-30); Chloride 96 mmol/L (98-107); Estimated CRCL calculation 74 ml/min; Estimated Glomerular Filt Rate > 60; Glucose 89 mg/dL (65-110); Potassium 3.9 mmol/L (3.4-5.0); Sodium 134 mmol/L (137-145)
[2023-03-16 20:56] LABS: Basophils Percent Auto 0.4 % (0.2-1.2); Eosinophils Absolute Auto 0.1 K/mm3 (0-0.3); Eosinophils Percent Auto 1.3 % (0-4.4); Hemoglobin 12.7 g/dL (12.0-15.0); Immature Granulocyte Absolute 0.03 K/mm3 (0.00-0.031); Immature Granulocyte Percent A 0.4 % (0-0.5); Lymphocytes Absolute Auto 2.07 K/mm3 (0.9-3.2); Lymphocytes Percent Auto 30.8 % (18.3-44.2); Mean Corpuscular HGB Conc 33.4 g/dl (32-36); Mean Corpuscular Hemoglobin 33.6 pg (26-34); Mean Corpuscular Volume 100.5 fl (80-100); Mean Platelet Volume 9.5 fl (7.4-10.4); Monocytes Absolute Auto 0.6 K/mm3 (0.1-0.6); Monocytes Percent Auto 8.3 % (2.6-8.5); Neutrophils Absolute Auto 3.9 K/mm3 (1.3-6.7); Neutrophils Percent Auto 58.8 % (45.5-73.1); Platelet Count Result 243 k/mm3 (150-375); Red Blood Count 3.78 M/mm3 (4.2-5.4); Red Cell Distribution Width 12.8 % (11.5-14.5); White Blood Count 6.7 K/mm3 (4.5-10.0)
[2023-03-16 21:34] VITALS: BP 148/76; PULSE 69; RESP 18; O2SAT 95
--- NOTE | 2023-03-16 22:10 | ECG_ITS ---
Measurements Intervals [place] Rate: 72 P: 69 MD: 194 QRS: 6 QRSD: 117 T: 70 QT: 422 QTc: 463 Interpretive Statements SINUS RHYTHM LEFT VENTRICULAR HYPERTROPHY BASELINE ARTIFACT- I, II, III, AVR, AVL, AVF, V1-V6 BORDERLINE ECG COMPARED TO ECG 12/25/2022 12:01:50 SINUS RHYTHM NOW PRESENT Electronically Signed On 03-17-2023 8:49:36 CDT by Alfredo Wright D.O.
[2023-03-16 22:42] LABS: Appearance Urine Clear (Clear); Bacteria Urine Rare /hpf; Bilirubin Urine Negative (Negative); Blood Urine Negative (Negative); Color Urine Yellow (Yellow); Glucose Urine UA Negative (Negative); Ketones Urine Negative (Negative); Leukocyte Esterase Ur 3+ LEU/UL (Negative); Need Manual Microscopic Reviewed; Nitrate Urine Negative (Negative); Non Pathogenic Casts 0-2; Protein Urine Negative (Negative); RBC Urine 0-2 /hpf (0-2); Specific Grav Ur 1.011 (1.001-1.035); Squamous Epithelial Cell Urine Occasional /hpf (Few); Urobilinogen Urine 0.2 mg/dL (<2.0); WBC Urine 21-50 /hpf
[2023-03-16 22:45] LABS: Add Urine Microscopic? YES
[2023-03-16 22:46] VITALS: BP 124/52; PULSE 72; RESP 18; O2SAT 95
[2023-03-17] VITALS (8 sets, daily range): BP systolic 149–173; BP diastolic 58–77; PULSE 63–81; RESP 14–20; TEMP 35.9–37.2; O2SAT 94–95; BMI 34.0
--- NOTE | 2023-03-17 00:41 | ED.GENADULT ---
HPI - General Adult General Chief complaint: Weakness Stated complaint: weak, falling, concerned for UTI Time Seen by Provider: 03/16/23 22:03 History of Present Illness HPI narrative: This is a 77-year-old female presenting ED with chief complaint of frequent falls. Over the last several weeks she has been having more and more frequent falls. patient notes that she has has some left leg weakness. Additionally she reports difficulty urinating. Patient has a known compression fracture in her L-spine. Patient denies head trauma, chest pain, difficulty breathing, or abdominal pain. No bowel incontinence. No known cancer, fevers, or IVDA. She notes occasional numbness of her legs but none at this time. Related Data Home Medications Medication Instructions Recorded Confirmed cholecalciferol (vitamin D3) 50 50 mcg PO DAILY 06/28/20 02/19/23 mcg (2,000 unit) capsule ntfaxuejwcor-bhtpknbl-igksuw tablet 1 tablet PO DAILY 06/28/20 12/21/22 Acetaminophen Extra Strength 1,000 mg PO TID 03/22/22 02/19/23 omeprazole 20 mg capsule,delayed 40 mg .Route .COMPLEX 12/21/22 02/19/23 release Allergies Allergy/AdvReac Type Severity Reaction Status Date / Time cephalexin Allergy Severe Anaphylaxis Verified 03/16/23 20:07 [facility] Past Medical History Medical History Anal fissure Anemia Ankylosing spondylitis Anxiety B12 deficiency Bronchitis Closed nondisplaced fracture of proximal phalanx of lesser toe Constipation due to opioid therapy Depression Diabetes Diverticulitis Diverticulosis of colon (without mention of hemorrhage) Emphysema of lung Fatty liver Gastro-esophageal reflux disease without esophagitis History of basal cell carcinoma (BCC) Macular degeneration Mixed hyperlipidemia Obstructive sleep apnea Osteoarthritis of left knee Peripheral neuropathy Psoriasis 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 Family History Mother Hypertension, Onset Age: 97 Father Family history of malignant neoplasm Family history of lung cancer, Onset Age: 94 Colon cancer Sibling Family history of blood dyscrasia Other Family history of arthritis Family history of seizure disorder No family history of cardiovascular disease No family history of diabetes mellitus No family history of hypertension Prediabetes Social History Social History Social History: The patient lives at home with her . She has smoked as much as 1.5 packs of cigarettes per day but quit in 2019. She had 59 year smoking history. Primary care physician: Dr. Dudley Coyne Code status: Long discussion about options and the patient wishes to be DNR Surrogate decision maker: Caffeine-coffee/tea Smoking packs per day: 1 Smoking cigarettes per day: 20.0 Years smoked: 50 Smoking pack-years: 50.00 Smoking status: Former smoker Second hand tobacco smoke exposure: Yes Alcohol intake: current Drinks per week: 3 Alcohol use details: beer-occasionally Substance use: current Substance use type: does not use Other substance usage details: drinks 2 beers a day Last use: 03/21/22 Lack of Transportation: No Lack of Food: Never True Current Housing: I Have Housing Concerned About Future Housing: No Difficulty Pa
--- NOTE | 2023-03-17 00:44 | PC.NURSE ---
0040 - Contacted Dr. Olea for possible admission.
[2023-03-17] MEDS: SODIUM CHLORIDE 0.9% IV 1,000 ML 999 ML IV CONT (02:01)
[2023-03-17] MEDS: levoFLOXacin 750 MG/D5W 150 ML 750 MG/150 ML BAG 100 MG IVPB ×2 (02:01→21:55)
[2023-03-17] MEDS: GABAPENTIN 300 MG CAPSULE PO ×3 (10:33→16:23)
[2023-03-17] MEDS: CHOLECALCIFEROL 1,000 UNITS TABLET 2000 UNITS PO (10:36)
[2023-03-17] MEDS: ACETAMINOPHEN 500 MG TABLET 1000 MG PO (10:37)
[2023-03-17] MEDS: traMADol HCL (*CRX) 50 MG TABLET PO (10:37)
[2023-03-17] MEDS: ASCORBIC ACID 500 MG TABLET PO (10:37)
[2023-03-17] MEDS: metFORMIN HCL XR 500 MG TAB.SR.24H PO (10:38)
[2023-03-17] MEDS: MULTIVITAMINS /C LUTEIN (CENTRUM SILVER) TABLET *BKC 1 TAB PO (10:38)
[2023-03-17] MEDS: LOSARTAN POTASSIUM 50 MG TABLET PO (10:39)
[2023-03-17] MEDS: METOPROLOL SUCCINATE EXT REL 50 MG TABCR PO (10:39)
[2023-03-17] MEDS: MAGNESIUM OXIDE 400 MG TABLET PO (10:39)
--- NOTE | 2023-03-17 11:51 | PM.IMHP ---
H&P: HPI History of Present Illness Date/Time: 03/17/23 11:51 Chief Complaint: This is a 77-year-old female presenting ED with chief complaint of frequent falls.? Over the last several weeks she has been having more and more frequent falls.? patient notes that she has has some left leg weakness.? Additionally she reports difficulty urinating. Patient has a known compression fracture in her L-spine.? Patient denies head trauma, chest pain, difficulty breathing, or abdominal pain.? No bowel incontinence. No known cancer, fevers, or IVDA.? She notes occasional numbness of her legs but none at this time. 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 Family History Mother Hypertension, Onset Age: 97 Father Family history of malignant neoplasm Family history of lung cancer, Onset Age: 94 Colon cancer Sibling Family history of blood dyscrasia Other Family history of arthritis Family history of seizure disorder No family history of cardiovascular disease No family history of diabetes mellitus No family history of hypertension Prediabetes Social History Social History Social History: The patient lives at home with her . She has smoked as much as 1.5 packs of cigarettes per day but quit in 2019. She had 59 year smoking history. Primary care physician: Dr. Dudley Coyne Code status: Long discussion about options and the patient wishes to be DNR Surrogate decision maker: Caffeine-coffee/tea Smoking packs per day: 1 Smoking cigarettes per day: 20.0 Years smoked: 50 Smoking pack-years: 50.00 Smoking status: Never smoker Second hand tobacco smoke exposure: Yes Alcohol intake: current Drinks per week: 21 Alcohol use details: beer-occasionally Substance use: never Substance use type: does not use Other substance usage details: drinks 2 beers a day Last use: 03/21/22 Lack of Transportation: No Lack of Food: Never True Current Housing: I Have Housing Concerned About Future Housing: No Difficulty Paying Gas/Electric Bills: No Difficulty Paying for Meds: No Currently Unemployed: No Education: Master's Degree or Higher Difficulty w/ Childcare or Family Care: No Living arrangements: with family Gender identity (if verbalized by the patient): Female Spiritual care concerns: No Meds Home Medications and Allergies Home Medications Medication Instructions Recorded Confirmed Type cholecalciferol (vitamin D3) 50 50 mcg PO DAILY 06/28/20 03/17/23 History mcg (2,000 unit) capsule cfckewkdlift-gfabvoxx-qoxjcp tablet 1 tablet PO DAILY 06/28/20 03/17/23 History Acetaminophen Extra Strength 1,
--- NOTE | 2023-03-17 12:49 | PCOTNOTE ---
Attempted OT evaluation this date. Waiting for CT scan result prior to evaluation due to prior L-spine fracture with worsening symptoms. Will attempt again tomorrow as able.
--- NOTE | 2023-03-17 12:56 | PCPTNOTE ---
Attempted PT evaluation this date. Spoke with nurse, waiting for CT scan result prior to evaluation due to prior L-spine fracture with worsening peripheral symptoms. Will continue to follow.
--- NOTE | 2023-03-17 13:24 | PC.NURSE ---
Pt is able to appropriately answer all A&O questions, but does exhibit some confusion. Pt is here with weakness and multiple falls. Pt has bed alarms on and all fall precautions are in place. Pt has yellow and red clasp on name bracelet. Pt reports chronic pain and expresses no needs at this time. Pt compliant with medication. Pt was contacted this morning and reviewed medications with this nurse. Pt states he will be up here to visit today. Will continue to monitor pt.
[2023-03-17] MEDS: DICLOFENAC SOD 75 MG TABLET.EC PO (20:11)
[2023-03-17] MEDS: sulfaSALAzine 500 MG TABLET 1500 MG PO (20:11)
[2023-03-17] MEDS: amLODIPine BESYLATE 5 MG TABLET 10 MG PO (20:12)
[2023-03-17] MEDS: traZODone HCL 50 MG TABLET 100 MG PO (20:12)
[2023-03-17] MEDS: diphenhydrAMINE HCl INJ 50 MG/ML VIAL 25 MG IV PUSH (23:04)
[2023-03-18 05:29] VITALS: BP 188/74; PULSE 75; RESP 16; TEMP 36.6; O2SAT 95
--- NOTE | 2023-03-18 08:28 | PCOTNOTE ---
Pt. unable to be seen for OT evaluation at this time due to safety concerns. Spoke with nurse, who is awaiting hospitalist for orders Re: MRI possible neurosurgery consult for acute and chronic fx. Following.
[2023-03-18] MEDS: traMADol HCL (*CRX) 50 MG TABLET PO (08:41)
[2023-03-18] MEDS: DULoxetine HCL 60 MG CAPSULE.DR 120 MG PO (08:41)
[2023-03-18] MEDS: ACETAMINOPHEN 500 MG TABLET 1000 MG PO (08:42)
[2023-03-18] MEDS: MAGNESIUM OXIDE 400 MG TABLET PO (08:42)
[2023-03-18] MEDS: MULTIVITAMINS /C LUTEIN (CENTRUM SILVER) TABLET *BKC 1 TAB PO (08:42)
[2023-03-18] MEDS: metFORMIN HCL XR 500 MG TAB.SR.24H PO (08:42)
[2023-03-18] MEDS: ASCORBIC ACID 500 MG TABLET PO (08:42)
[2023-03-18] MEDS: sulfaSALAzine 500 MG TABLET 1500 MG PO (08:42)
[2023-03-18] MEDS: PRIMIDONE 50 MG TABLET PO (08:42)
[2023-03-18 08:43] VITALS: PULSE 80
[2023-03-18] MEDS: CHOLECALCIFEROL 1,000 UNITS TABLET 2000 UNITS PO (08:43)
[2023-03-18] MEDS: GABAPENTIN 300 MG CAPSULE PO (08:43)
[2023-03-18] MEDS: LOSARTAN POTASSIUM 50 MG TABLET PO (08:43)
[2023-03-18] MEDS: METOPROLOL SUCCINATE EXT REL 50 MG TABCR PO (08:43)
[2023-03-18] MEDS: DICLOFENAC SOD 75 MG TABLET.EC PO (08:44)
[2023-03-18] MEDS: PANTOPRAZOLE 40 MG TABLET PO (08:44)
[2023-03-18] MEDS: lamoTRIgine 25 MG TABLET PO (08:44)
--- NOTE | 2023-03-18 08:49 | PCPTNOTE ---
Awaiting further recommendations from hospitalist prior to initiating therapy due to safety concerns. Will follow.
--- NOTE | 2023-03-18 12:00 | PM.DS ---
DS: Admitting Diagnosis Discharge Date March 18, 2023 Admitting Diagnosis UTI DS: Discharge Diagnosis Discharge Diagnosis (1) Frequent falls: Code(s): R29.6 - Repeated falls Status: Acute Assessment and Plan: pt/ot (2) Acute UTI: Code(s): N39.0 - Urinary tract infection, site not specified Status: Acute Assessment and Plan: iv abx (3) Pain: Code(s): R52 - Pain, unspecified Status: Acute DS: Summary Hospital Course Hospital Course: Patient is 77-year-old female came UTI altered mental status. After starting antibiotics her altered mental status improved significantly. She does have history of frequent falls at home. She uses walker and a scooter to get around. Patient is high risk for falling. Lengthy discussion with the patient she does not want be placed anywhere. Will continue antibiotics on discharge. Home health will also be set up and arranged for her Time Spent with Patient Time attestation: Total time spent providing and/or coordinating discharge services: Exam Narrative: General: alert and oriented Psych: appropriate mood nad affect Eyes: PERRLA Neck: Trachea midline, no new lesions Skin: no changes Lungs: CTA Cardiac: Normal S1,S2, no MGR ABD: soft, nd, nt, nbs Ext: no new lesions, no cce Vasc: Pulses intact Discharge Plan Discharge Attending physician on discharge: eRx Spicer Discharging Clinician: Rex Spicer Patient Disposition: Home Health Service Activity: as tolerated Diet: as tolerated Patient Instructions: Antibiotic Form Stand Alone Forms: General Discharge Information Follow-up/Referrals: Hugh Mendez MD [Primary Care Provider] - Discharge Medications: New amoxicillin-pot clavulanate 875-125 mg tablet 1 tablet PO Q12H 5 Days Qty: 10 0RF Continued prednisone 50 mg tablet 50 mg PO DAILY Qty: 4 0RF cholecalciferol (vitamin D3) 50 mcg (2,000 unit) capsule 50 mcg PO DAILY rvrvfwbjtcgu-syuixfzs-ocstca Tablet 1 tablet PO DAILY Rx Instructions: Centrum Silver Cosentyx 75 mg/0.5 mL syringe 150 mg subcut WEEKLY Qty: 1 0RF omeprazole 20 mg capsule,delayed release(DR/EC) 40 mg PO DAILY Acetaminophen Extra Strength 1,000 mg PO TID PRN (Reason: Pain) cyclobenzaprine 5 mg tablet 5 mg PO TID PRN (Reason: muscle spasm) Qty: 15 0RF lorazepam 0.5 mg tablet 0.5 mg PO TID PRN (Reason: Anxiety) lamotrigine 25 mg tablet 75 mg PO BID gabapentin 300 mg capsule 300 mg PO TID hydroxyzine HCl 25 mg tablet 25 mg PO BID PRN (Reason: Itching) magnesium oxide 400 mg (241.3 mg magnesium) Tablet 400 mg PO DAILY Qty: 30 0RF duloxetine 60 mg capsule,delayed release(DR/EC) 60 mg PO BID Qty: 180 2RF metformin 500 mg tablet extended release 24 hr 500 mg PO DAILY Qty: 90 3RF losartan 50 mg tablet 50 mg PO DAILY Qty: 90 3RF metoprolol succinate 50 mg tablet extended release 24 hr 50 mg PO DAILY Qty: 90 3RF amlodipine [Norvasc] 5 mg tablet 10 mg PO HS Qty: 180 1RF ascorbic acid (vitamin C) [Vitamin C] 500 mg tablet 500 mg PO DAILY Qty: 30 6RF Rx Instructions: TAKE 1 TABLET BY MOUTH EVERY DAY trazodone 50 mg tablet 100 mg PO HS Qty: 270 1RF tramadol 50 mg tablet 50 mg PO TID PRN (Reason: Pain Rated 4-6) Qty: 90 0RF Date of admission: 03/17/23 01:41 Primary Care Provider: Hugh Mendez Admitting Provider: Dyan Olea Attending physician on admission: Dyan Olea Condition: Stable
[2023-03-18 14:00] VITALS: BP 162/71; PULSE 72; RESP 18; TEMP 35.9; O2SAT 95
--- NOTE | 2023-03-18 15:26 | PC.NURSE ---
Pt has discharged home with . Pt had reaction to IV antibiotics. Pt had red spot on left arm at IV site, due to reaction. Pt IV was removed tip intact. Pt tolerated well. Pt worked with therapy today. Pt going home with home health. Pt was monitored for any changes in status while here.
--- NOTE | 2023-03-18 15:29 | PCPTNOTE ---
On 03/18/23, the student, [Miranda Coates], provided care and completed [facility] documentation on this patient. I have reviewed the student's documentation and agree with the findings.
== END 2023-03-18 15:00 | disposition home health service (06) ==
LOC: ANHED 03-17 01:39 → ANH3MEDSUR 03-17 04:47
PROVIDERS: Admitting Provider Chiropractor; Emergency Provider Emergency Medicine; PCP Emergency Medicine; Visit Provider Chiropractor
DX: R29.6 Repeated falls (principal); N39.0 Urinary tract infection, site not specified; R52 Pain, unspecified; M62.81 Muscle weakness (generalized); R20.0 Anesthesia of skin; R33.9 Retention of urine, unspecified; D64.9 Anemia, unspecified; M48.56XA Collapsed vertebra, not elsewhere classified, lumbar region, initial encounter for fracture; M17.12 Unilateral primary osteoarthritis, left knee; R53.83 Other fatigue; J43.9 Emphysema, unspecified; K21.9 Gastro-esophageal reflux disease without esophagitis; E11.40 Type 2 diabetes mellitus with diabetic neuropathy, unspecified; G47.33 Obstructive sleep apnea (adult) (pediatric); R56.9 Unspecified convulsions; K76.0 Fatty (change of) liver, not elsewhere classified; E78.2 Mixed hyperlipidemia; F41.9 Anxiety disorder, unspecified; F32.A Depression, unspecified; Z87.891 Personal history of nicotine dependence; F10.90 Alcohol use, unspecified, uncomplicated; Z79.1 Long term (current) use of non-steroidal anti-inflammatories (NSAID); Z79.899 Other long term (current) drug therapy
CPT/HCPCS: 36415; 71045; 72131; 80053; 81001; 85025; 87086; 93005; 96374; 96375; 96376; 97161; 97165; 99285; A9270; G0378; J1200; J1956; J7030

== ENCOUNTER 2023-05-15 15:55 | Outpatient (CLI) | payer MEDICARE, OTHER, SELFPAY ==
[2023-05-15 18:44] LABS: Basophils Percent Auto 0.5 % (0.2-1.2); Eosinophils Absolute Auto 0.1 K/mm3 (0-0.3); Eosinophils Percent Auto 1.3 % (0-4.4); Hematocrit 41.2 % (37.0-47.0); Hemoglobin 13.7 g/dL (12.0-15.0); Immature Granulocyte Absolute 0.01 K/mm3 (0.00-0.031); Immature Granulocyte Percent A 0.2 % (0-0.5); Lymphocytes Absolute Auto 1.73 K/mm3 (0.9-3.2); Lymphocytes Percent Auto 27.3 % (18.3-44.2); Mean Corpuscular HGB Conc 33.3 g/dl (32-36); Mean Corpuscular Volume 102.2 fl (80-100); Mean Platelet Volume 9.9 fl (7.4-10.4); Monocytes Absolute Auto 0.7 K/mm3 (0.1-0.6); Monocytes Percent Auto 11.7 % (2.6-8.5); Neutrophils Absolute Auto 3.7 K/mm3 (1.3-6.7); Platelet Count Result 261 k/mm3 (150-375); Red Blood Count 4.03 M/mm3 (4.2-5.4); Red Cell Distribution Width 11.9 % (11.5-14.5); White Blood Count 6.3 K/mm3 (4.5-10.0)
[2023-05-15 19:36] LABS: Alanine Aminotransferase 19 U/L (6-35); Albumin Level 4.3 g/dL (3.5-5.1); Alkaline Phosphatase 71 U/L (38-126); Anion Gap 7 mmol/L (8-16); Aspartate Amino Transferase 30 U/L (14-36); Bilirubin,Total 0.4 mg/dL (0.2-1.3); Blood Urea Nitrogen 11 mg/dL (7-17); Calcium 9.5 mg/dL (8.4-10.2); Carbon Dioxide 33 mmol/L (22-30); Chloride 99 mmol/L (98-107); Estimated Glomerular Filt Rate > 60; Glucose 113 mg/dL (65-110); Potassium 3.4 mmol/L (3.4-5.0); Sodium 139 mmol/L (137-145)
[2023-05-15 20:22] LABS: Hemoglobin A1C 5.2 % (<5.7)
== END 2023-05-15 15:56 | disposition home or self-care (01) ==
LOC: ANHGOSHLAB 16:04
PROVIDERS: PCP Family Medicine; Visit Provider Nurse Practitioner Family
DX: R52 Pain, unspecified (principal); R53.1 Weakness; E87.6 Hypokalemia; Z79.899 Other long term (current) drug therapy; E11.65 Type 2 diabetes mellitus with hyperglycemia; R29.6 Repeated falls; I10 Essential (primary) hypertension; E87.1 Hypo-osmolality and hyponatremia; E78.2 Mixed hyperlipidemia
CPT/HCPCS: 36415; 80053; 83036; 84443; 85025

== ENCOUNTER 2023-05-29 14:25 | Emergency (ER) | payer MEDICARE, OTHER, SELFPAY ==
[2023-05-29 14:33] VITALS: BP 147/52; PULSE 70; RESP 16; TEMP 36.3; O2SAT 96
--- NOTE | 2023-05-29 14:39 | ED.FEMALEGU ---
HPI - Female Genitourinary General Chief complaint: Urogenital-Female Stated complaint: Urinary Problem Source: patient, family and RN notes reviewed History of Present Illness HPI Narrative: 77 yo F presents to urgent care with at side. Pt states she has been having increased weakness the last couple days. Pt is also reporting dizziness and the feeling the room is spinning. Pt states she believes she has a UTI b/c she gets weak with those. Pt is also reporting a discharge from down there which she states is also common when she has a UTI. Denies any dysuria, flank pain, abnormal back pain, chest pain, SOB, N/V/D, GUERRERO, congestion, or sore throat. Pt does report a chronic hx of tinnitus. Related Data Home Medications Medication Instructions Recorded Confirmed afeducoxutzv-bzwklfzg-urabcf tablet 1 tablet PO DAILY 06/28/20 05/29/23 hydroxyzine HCl 25 mg tablet 25 mg PO BID PRN Itching 03/17/23 05/29/23 duloxetine 60 mg capsule,delayed 60 mg PO DAILY 05/29/23 05/29/23 release gabapentin 300 mg capsule 300 mg PO BID 05/29/23 05/29/23 tramadol 50 mg tablet 50 mg PO BID PRN Pain Rated 4-6 05/29/23 05/29/23 Allergies Allergy/AdvReac Type Severity Reaction Status Date / Time cephalexin Allergy Severe Anaphylaxis Verified 05/29/23 14:48 Review of Systems Review of Systems: CONSTITUTIONAL: Denies fever, chills, or sweats. reports weakness in her legs. EYES: Denies visual changes, redness, or discharge. ENT: Denies otalgia and sore throat CARDIOVASCULAR: Denies chest pain, palpitations, or edema. RESPIRATORY: Denies cough or dyspnea. GASTROINTESTINAL: Denies abdominal pain, nausea, vomiting, or diarrhea. GENITOURINARY: Denies dysuria or hematuria. reports a discharge from down there. SKIN: Denies rash or itching. MUSCULOSKELETAL: Denies back pain, joint pain, or myalgia. NEUROLOGIC: dizziness Pertinent positives per HPI. 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 Family History Mother Hypertension, Onset Age: 97 Father Family history of malignant neoplasm Family history of lung cancer, Onset Age: 94 Colon cancer Sibling Family history of blood dyscrasia Other Family history of arthritis Family history of seizure disorder No family history of cardiovascular disease No family history of diabetes mellitus No family history of hypertension Prediabetes Social History Social History Social History: The patient lives at home with her . She has smoked as much as 1.5 packs of cigarettes per day but quit in 2019. She had 59 year smoking history. Primary care physician: Dr. Dudley Coyne Code status: Long discussion a
--- NOTE | 2023-05-29 15:06 | ECG_ITS ---
Measurements Intervals [place] Rate: 68 P: 40 [place]: 191 QRS: 3 QRSD: 106 T: 38 QT: 419 QTc: 448 Interpretive Statements SINUS RHYTHM EARLY PRECORDIAL R/S TRANSITION LEFT VENTRICULAR HYPERTROPHY INFERIOR INFARCT, AGE INDETERMINATE BASELINE ARTIFACT- I, II, AVR, AVL, AVF ABNORMAL ECG COMPARED TO ECG 03/16/2023 22:34:34 MYOCARDIAL INFARCT FINDING NOW PRESENT Electronically Signed On 05-29-2023 19:41:42 CDT by Alfredo Wright D.O.
== END 2023-05-29 16:05 | disposition left against medical advice (07) ==
PROVIDERS: Emergency Provider Nurse Practitioner Family; PCP Emergency Medicine
DX: R53.1 Weakness (principal); R42 Dizziness and giddiness; Z20.822 Contact with and (suspected) exposure to COVID-19; Z87.891 Personal history of nicotine dependence; M45.9 Ankylosing spondylitis of unspecified sites in spine; E11.9 Type 2 diabetes mellitus without complications; K21.9 Gastro-esophageal reflux disease without esophagitis; M17.12 Unilateral primary osteoarthritis, left knee; E11.42 Type 2 diabetes mellitus with diabetic polyneuropathy; L40.9 Psoriasis, unspecified; M05.9 Rheumatoid arthritis with rheumatoid factor, unspecified; K76.0 Fatty (change of) liver, not elsewhere classified; J43.9 Emphysema, unspecified; E78.2 Mixed hyperlipidemia; H35.30 Unspecified macular degeneration; Z85.828 Personal history of other malignant neoplasm of skin
CPT/HCPCS: 87426; 93005; 99213; C9803; G0463

== ENCOUNTER 2023-06-10 13:41 | Outpatient (CLI) | payer MEDICARE, OTHER, SELFPAY ==
--- NOTE | ~2023-06-10 | MR_ITS ---
EXAMINATION: MR brain/brain stem wo con DATE: 06/10/2023 15:01 INDICATION: Other symptoms and signs involving cognitive function and awareness TECHNIQUE: Magnetic resonance imaging (MRI) of the brain and brainstem was performed without intraven ous contrast. Sequences included sagittal and axial T1-weighted SE, axial diffusion-weighted FS SE, a xial 3D SWAN, axial T2*-weighted GRE, axial T2-weighted FLAIR, and axial T2-weighted FSE. Apparent di ffusion coefficient (ADC) maps were created. COMPARISON: Head CT dated 10/24/2022, cerebral CT angiogram dated 04/01/2022 and brain MR dated 07/16/20 21 FINDINGS: There are no areas of restricted diffusion to suggest acute infarction. No intracranial hemorrhage or abnormal intracranial mass lesion. Extensive confluent regions of nonspecific increased T2-weighted signal intensity in the cerebral and pontine white matter, predominantly involving the deep and periv entricular white matter. There is some signal dropout on susceptibility weighted imaging fissure with dystrophic calcifications at the bilateral basal ganglia. There are no intraparenchymal signal abnor malities seen on the other pulse sequences. Symmetric prominence of the sulci and ventricles consiste nt with mild to moderate age-appropriate diffuse cerebral volume loss. There are no abnormal extra-a xial fluid collections. Right vertebral artery is dominant with no evident flow void in the left vert ebral artery likely due to its small size, . Diminutive on prior contrast enhanced cerebral CT angiog jero. Flow voids are seen in the remaining larger cerebral arteries on the T2-weighted sequences consi stent with their expected patency. Changes of bilateral intraocular lens replacement. Visualized orb its and soft tissues are unremarkable. IMPRESSION: 1. No acute intracranial process. 2. Age-related changes including mild to moderate diffuse volume loss and extensive scattered nonspec ific cerebral and pontine white matter T2 hyperintensity consistent with chronic small vessel ischemi c disease. Reviewed, dictated and finalized at location A. IMPRESSION: 1. No acute intracranial process. 2. Age-related changes including mild to moderate diffuse volume loss and exten sive scattered nonspecific cerebral and pontine white matter T2 hyperintensity consistent with chronic small vessel ischemic disease.
== END 2023-06-10 13:42 | disposition home or self-care (01) ==
PROVIDERS: PCP Emergency Medicine; Visit Provider Student in an Organized Health Care Education/Training Program
DX: R41.89 Other symptoms and signs involving cognitive functions and awareness (principal)
CPT/HCPCS: 70551

== ENCOUNTER 2023-07-23 15:17 | Outpatient (CLI) | payer MEDICARE, OTHER, SELFPAY ==
--- NOTE | ~2023-07-23 | US_ITS ---
Pelvic ultrasound. Clinical History: Abnormal CT scan Technique: Realtime transabdominal and transvaginal scanning of the pelvis was performed. Color flow Doppler and Doppler spectral analysis were performed. Correlation made with CT scan dated 12/25/2022 Findings: The uterus is anteverted. There is a 1.2 x 0.8 cm hyperechoic mass which appears to be with in the endometrial cavity, with fluid distention of the more distal endometrial cavity. Remainder the endometrial lining measures approximately 4 mm in thickness otherwise. Exophytic heterogeneous mass with right-sided uterus measures 3.4 x 2.8 x 2.8 cm, consistent with exophytic fibroid. Neither ovary seen. No other adnexal mass seen. There is no evidence of free fluid in the cul de sac. Impression: 1.2 x 0.8 cm hyperechoic mass which appears to be within the endometrial cavity. There is upstream fl uid distention of the endometrial cavity. Diagnostic considerations include endometrial polyp, or pos sibly intraluminal/submucosal fibroid. Appearance is less typical for endometrial neoplasm. 3.4 cm exophytic fibroid, as detailed above. Reviewed, dictated and finalized at [facility]. 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 There is upstream fluid distention of the endometrial cavity. Diagnostic cons iderations include endometrial polyp, or possibly intraluminal/submucosal fibro id. Appearance is less typical for endometrial neoplasm. 3.4 cm exophytic fibroid, as detailed above.
== END 2023-07-23 15:18 | disposition home or self-care (01) ==
PROVIDERS: PCP Emergency Medicine; Visit Provider Emergency Medicine
DX: R93.89 Abnormal findings on diagnostic imaging of other specified body structures (principal)
CPT/HCPCS: 76830

== ENCOUNTER 2023-10-10 13:08 | Outpatient (CLI) | payer MEDICARE, OTHER, SELFPAY ==
[2023-10-10 15:53] LABS: Basophils Percent Auto 0.5 % (0.2-1.2); Eosinophils Absolute Auto 0.1 K/mm3 (0-0.3); Hematocrit 40.2 % (37.0-47.0); Hemoglobin 12.8 g/dL (12.0-15.0); Immature Granulocyte Absolute 0.04 K/mm3 (0.00-0.031); Immature Granulocyte Percent A 0.5 % (0-0.5); Lymphocytes Absolute Auto 2.18 K/mm3 (0.9-3.2); Lymphocytes Percent Auto 25.1 % (18.3-44.2); Mean Corpuscular HGB Conc 31.8 g/dl (32-36); Mean Corpuscular Volume 94.1 fl (80-100); Mean Platelet Volume 9.3 fl (7.4-10.4); Monocytes Absolute Auto 0.7 K/mm3 (0.1-0.6); Monocytes Percent Auto 8.1 % (2.6-8.5); Neutrophils Absolute Auto 5.6 K/mm3 (1.3-6.7); Neutrophils Percent Auto 64.8 % (45.5-73.1); Platelet Count Result 256 k/mm3 (150-375); Red Blood Count 4.27 M/mm3 (4.2-5.4); Red Cell Distribution Width 15.1 % (11.5-14.5); White Blood Count 8.7 K/mm3 (4.5-10.0)
[2023-10-10 16:05] LABS: Partial Thromboplastin Time 27.7 SECONDS (22.3-36.8); Prothrombin Time 13.4 Seconds (11.1-14.7)
[2023-10-10 16:11] LABS: Anion Gap 4 mmol/L (8-16); Blood Urea Nitrogen 12 mg/dL (7-17); Calcium 8.9 mg/dL (8.4-10.2); Carbon Dioxide 31 mmol/L (22-30); Chloride 102 mmol/L (98-107); Estimated Glomerular Filt Rate > 60; Glucose 108 mg/dL (65-110); Potassium 3.5 mmol/L (3.4-5.0); Sodium 137 mmol/L (137-145)
== END 2023-10-10 13:09 | disposition home or self-care (01) ==
PROVIDERS: Anesthesiology; PCP Emergency Medicine; Visit Provider Obstetrics & Gynecology
DX: Z01.812 Encounter for preprocedural laboratory examination (principal); N85.2 Hypertrophy of uterus; N18.9 Chronic kidney disease, unspecified; E11.9 Type 2 diabetes mellitus without complications
CPT/HCPCS: 36415; 80048; 85025; 85610; 85730; 86850; 86900; 86901

== ENCOUNTER 2023-10-18 00:50 | Day surgery (SDC) | payer MEDICARE, OTHER, SELFPAY ==
[2023-10-10 14:41] VITALS: BP 168/75; PULSE 63; RESP 16; TEMP 37.1; O2SAT 94; BMI 33.6
--- NOTE | 2023-10-10 15:07 | PC.NURSE ---
Addendum entered by Olesya Mccabe RN 10/10/23 15:54: AMEND- SURGERY DATE IS 10/18/23, PT AND RELAY UNDERSTANDING. Original Note: Report to the Outpatient Waiting Room, entrance under the green pavilion located off [facility], at time ___7:30AM____ on date __10/10/23 . Planned Procedure Time: __9:30AM . Time changes happen often and if your time is changed the preop area will call you the afternoon before. - You and your visitor will be asked to self-screen and do not enter if you have any COVID symptoms. - A mask is optional within the hospital at this time. Patients may have clear liquids (water, carbonated beverages, clear teas, apple juice) until 3 hours prior to surgery with a maximum of 20 ounces. - No food from midnight until time of surgery. - Infants may have breast milk until 4 hours before surgery, formula 6 hours prior to surgery. - Children will be allowed to drink immediately following surgery. If applicable, please bring a bottle or sippy cup to assist with drinking. Juice, water, soda, and popsicles are readily available. For infants on formula, please bring formula the day of surgery. Pacifiers are allowed. Take the following medications with a SIP of water the morning of surgery: ___DULOXETINE, GABAPENTIN, LAMOTRIGINE, PRIMIDONE, METOPROLOL, TRAMADOL DO NOT STOP ANY OF YOUR OTHER PRESCRIPTION MEDICATIONS PRIOR TO SURGERY ?EXCEPT THE FOLLOWING Medications to discontinue per physician ____HOLD ASPIRIN 7 DAYS PRE-OP PER DR PEREZ Date to take last dose___10/09/23 Please no make-up, nail kiswahili, hairspray, perfume, deodorant, or body powder the day of surgery. No jewelry (including any body piercings) or valuables the day of surgery, leave them at home. Please take a shower or bath the night before, or the morning of, surgery with an antibacterial soap. Wear comfortable, loose fitting clothing. - Jewelry must be removed prior to entering the operating room. Rings and piercings that are not removed may be cut off. - The hospital will not accept responsibility for valuables. - Please leave all valuables, including medications, at home the day of surgery. If you are going home after surgery, a licensed newspaper delivery driver must drive you home. - NO public transportation without another adult if you receive anesthesia. - We recommend that an adult stay with you for 24 hours following discharge. - We also recommend that you do not drive, make important decision, drink alcoholic beverages, or take any drugs that were not prescribed by your health care provider for at least 24 hours after your discharge time. Follow any additional instructions given to you from your surgeon. If you or anyone in your household have experienced Covid symptoms in the past week, please notify your surgeon or the nurse liaison at the phone number below for possible testing. Telephone instructions given to ___PATIENT and asked if any additional questions and then verbalized understanding. Patient advised to call surgeon office or pre surgery nurse liaison [phone] if any additional questions.
--- NOTE | 2023-10-15 07:29 | PM.IMHP ---
H&P: HPI History of Present Illness Date/Time: 10/15/23 07:29 Chief Complaint: Pelvic pain and pedunculated fibroid as well as exophytic polyp Narrative: 77-year-old female for robotic hysterectomy and bilateral salpingo-oophorectomy secondary to fibroids and polyp. Risks and benefits reviewed in full. 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 Family History Mother Hypertension, Onset Age: 97 Father Family history of malignant neoplasm Family history of lung cancer, Onset Age: 94 Colon cancer Sibling Family history of blood dyscrasia Other Family history of arthritis Family history of seizure disorder No family history of cardiovascular disease No family history of diabetes mellitus No family history of hypertension Prediabetes Social History Social History Social History: The patient lives at home with her . She has smoked as much as 1.5 packs of cigarettes per day but quit in 2019. She had 59 year smoking history. Primary care physician: Dr. Dudley Coyne Code status: Long discussion about options and the patient wishes to be DNR Surrogate decision maker: Caffeine-coffee/tea Smoking packs per day: 1 Smoking cigarettes per day: 20.0 Years smoked: 55 Smoking pack-years: 55.00 Smoking status: Current every day smoker Tobacco type: cigarettes Second hand tobacco smoke exposure: Yes Additional smoking assessment comments: STOPPED FOR 5 YEARS Alcohol intake: current Drinks per week: 28 Alcohol use details: beer-occasionally Substance use: never Substance use type: does not use Other substance usage details: drinks 2 beers a day Last use: 03/21/22 Lack of Transportation: No Lack of Food: Never True Current Housing: I Have Housing Concerned About Future Housing: No Difficulty Paying Gas/Electric Bills: No Difficulty Paying for Meds: No Currently Unemployed: No Education: Master's Degree or Higher Difficulty w/ Childcare or Family Care: No Living arrangements: with family Additional living arrangements comments: [facility] Gender identity (if verbalized by the patient): Female Spiritual care concerns: No Meds Home Medications and Allergies Home Medications Medication Instructions Recorded Confirmed Type trazodone 50 mg tablet 100 mg PO HS #270 tabs 02/20/23 10/10/23 Rx hydroxyzine HCl 25 mg tablet 25 mg PO QAM 03/17/23 10/10/23 History amlodipine 5 mg tablet (Norvasc) 10 mg PO HS #180 tabs 05/17/23 10/10/23 Rx duloxetine 60 mg capsule,delayed 120 mg PO QAM 05/29/23 10/10/23 History release gabapentin 300 mg capsule 300 mg PO BID 05/29/23 10/10/23 Histor
[2023-10-18] VITALS (12 sets, daily range): BP systolic 137–188; BP diastolic 59–88; PULSE 69–87; RESP 10–20; TEMP 36.1–36.6; O2SAT 93–97; BMI 32.7
[2023-10-18 06:24] LABS: Glucose Point of Care 144 mg/dl (65-105)
--- NOTE | 2023-10-18 06:30 | WPDHPUPDATE1 ---
History and Physical Update Update Date/Time: 10/18/23 06:30 History and Physical has been reviewed, including an updated exam of the patient. There are NO changes in the patient's condition. Risks, benefits, and alternatives have been discussed and questions answered. Patient agrees to proceed with procedure.
[2023-10-18] MEDS: KETOROLAC 15 MG/ML VIAL (*BKC) IV PUSH ×2 (07:01→11:25)
[2023-10-18] MEDS: ACETAMINOPHEN 500 MG TABLET 1000 MG PO (07:01)
--- NOTE | 2023-10-18 07:25 | WPDANESEPPF ---
Anes - Initial Pre Proc Eval Procedure: Operation Date: 10/18/23 09:30 Proposed Procedures p Robotic Assisted Total Vaginal Hysterectomy with Bilateral Salpingo-oophorectomy - Devang Love MD Date/Time: 10/18/23 07:25 Surgeon: Devang Love MD Pre Op Diagnosis: Enlarge Uterus,Fibroids,Uterine Polyps,Pain Patient Data Age: 77 Gender: F Height: 1.55 m Weight: 78.6 kg Last Vital Signs Temp 36.6 C 10/18/23 07:09 Pulse 69 10/18/23 07:09 Resp 16 10/18/23 07:09 BP 188/72 H 10/18/23 07:09 Pulse Ox 94 10/18/23 07:09 O2 Del Method Room Air 10/18/23 07:09 Allergies Allergy/AdvReac Type Severity Reaction Status Date / Time cephalexin Allergy Severe Anaphylaxis Verified 10/18/23 06:25 Home Medications Medication Instructions Recorded Confirmed Type trazodone 50 mg tablet 100 mg PO HS #270 tabs 02/20/23 10/18/23 Rx hydroxyzine HCl 25 mg tablet 25 mg PO QAM 03/17/23 10/18/23 History amlodipine 5 mg tablet (Norvasc) 10 mg PO HS #180 tabs 05/17/23 10/18/23 Rx duloxetine 60 mg capsule,delayed 120 mg PO QAM 05/29/23 10/18/23 History release gabapentin 300 mg capsule 300 mg PO BID 05/29/23 10/18/23 History acetaminophen 500 mg tablet 500 mg PO BID 10/10/23 10/18/23 History aspirin 81 mg tablet,delayed 81 mg PO DAILY 10/10/23 10/18/23 History release diclofenac sodium 75 mg 75 mg PO BID 10/10/23 10/18/23 History tablet,delayed release diphenhydramine HCl 25 mg capsule 50 mg PO HS PRN Insomnia 10/10/23 10/18/23 History (Benadryl) lamotrigine 25 mg tablet 25 mg PO QAM 10/10/23 10/18/23 History lorazepam 0.5 mg tablet 0.5 mg PO HS 10/10/23 10/18/23 History losartan 50 mg tablet 50 mg PO QAM 10/10/23 10/18/23 History metoprolol succinate 50 mg 50 mg PO QAM 10/10/23 10/18/23 History tablet,extended release 24 hr pantoprazole 40 mg tablet,delayed 40 mg PO QAM 10/10/23 10/18/23 History release primidone 50 mg tablet 50 mg PO QAM 10/10/23 10/18/23 History secukinumab 150 mg/mL subcutaneous 150 mg subcut [id number] 10/10/23 10/18/23 History syringe (Cosentyx) sulfasalazine 500 mg 1,500 mg PO BID 10/10/23 10/18/23 History tablet,delayed release tramadol 50 mg tablet 50 mg PO BID 10/10/23 10/18/23 History hydrocodone 5 mg-acetaminophen 325 1 tablet PO Q4H PRN pain #30 tabs 10/18/23 Rx mg tablet Laboratory Tests 10/18/23 06:21 POC Capillary Glucose 144 H mg/dl (65-105) Patient hx anesthesia problems: none Family hx anesthesia problems: none Results Review: All pre-operative results and documents have been reviewed as part of the pre-operative evaluation. 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
[2023-10-18] MEDS: GENTAMICIN SULFATE INJ 395 MG in DEXTROSE 5% 100 ML 99.76 MG IVPB (07:29)
[2023-10-18] MEDS: CLINDAMYCIN 900 MG/D5W 50 ML 900 MG/50 ML PIGGYBACK 50 MG IVPB (07:29)
[2023-10-18] MEDS: LACTATED RINGERS 1,000 ML 30 ML IV CONT ×2 (07:30→09:15)
--- NOTE | 2023-10-18 09:06 | P.OP_ITS ---
Procedure Note - Detailed Date of Procedure 10/18/23 Pre-op Diagnosis Enlarge Uterus,Fibroids,Uterine Polyps,Pain Post-op Diagnosis Same Procedure Performed Robotic supracervical hysterectomy with bilateral salpingo-oophorectomy and extensive lysis of adhesions Surgeon Devang Love MD Anesthesia General Indications since 77 old female with severe pain enlarged uterus Findings aborted pelvic adhesions completely sure pelvis. Fibroid uterus. Small ova adriana tubes. Description of Procedure Patient was prepped draped in sterile fashion placed in dorsal lithotomy position. Excellent trach anesthesia weighted speculum placed in posterior fornix vagina. Anterior lip of the cervix grasped with single-tooth tenaculum. Uterus sounded to 8cm. Serial dilatation with fragmented dilators performed followed by passage of the 8 8. YURY and the 2. And 8.5 cold cup. Next a 16 Syriac catheter placed in bladder drained of clear urine. The weighted speculum was removed the gloves were changed. Supraumbilical incision made the Veress needle passed in the abdomen. Abdomen filled with CO2 gas 15mmmmofmercury. The 8mm trocar advanced in the abdomen. Downside visualized no injury seen. Patient placed in Trendelenburg and a super the left and right lateral quadrant incisions made. 8Mm trocars advanced under direct visualization assuring no injury. Right upper quadrant incision made the 8mm trocar advanced under direct visualization. Robot was docked. Attention was turned to the console. A marked amount adhesions were seen the uterus could not be seen due to large amount adhesions slowly by talking and sharp dissection these were relieved over from the top of the uterus and the adnexa bilaterally. The left round ligament was eventually grasped, burned, cut. Anteriorly a bladder flap was formed by sharply dissecting the peritoneum away from the cervix and uterus. There were marked amount of adhesions this was quite difficult until the opposite round ligament could be region was grasped, burned, cut. The infundibulopelvic structure on the left were skeletonized clamping burning cutting ring this to the previous cut round ligament. Removed the right ovary the infundibulopelvic structure was skeletonized clamping burning cutting bringing this to level of previously cut round ligament. The cardinal broad ligaments on the left were serially skeletonized clamping burning cutting and bringing this down to the uterine vessels. These were clamped, burned, cut this was repeated on the contralateral side by clamping burning cutting the cardinal broad ligaments until the uterine vessels could be seen on right these were individually clamped, burned, cut. Was not felt that he could safely cervix could be removed at that point due to the adhesions that were present. Supracervical incision made the uterus was cut in half. This was brought through the 8mm trocar at the top. The robot was undocked. The gas was removed the incisions closed with 4 Monocryl glue. Instruments removed from vagina patient went recovery in satisfactory condition. All sponge, needle, instrument counts were correct. There were no immediate complications Estimated Blood Loss 25 Drains No Packing No Pathology Yes Complications No immediate complications Condition Stable Disposition PACU
--- NOTE | 2023-10-18 09:11 | P.DS_ITS ---
DS: Admitting Diagnosis Discharge Date 10/19/2023 Admitting Diagnosis enlarged uterus/fibroid/pelvic DS: Discharge Diagnosis Discharge Diagnosis (1) Enlarged uterus: Code(s): N85.2 - Hypertrophy of uterus Status: Acute (2) Fibroids: Code(s): D21.9 - Benign neoplasm of connective and other soft tissue, unspecified Status: Acute DS: Summary Hospital Course Reason for hospitalization: patient was admitted for robotic total vaginal hysterectomy salpingo- oophorectomy secondary fibroids. She underwent a supracervical hysterectomy and salpingo-oophorectomy with extensive lysis of adhesions secondary to severity of the adhesions. Hospital Course: Her hospital course unremarkable. She remained afebrile. She was up, voiding without difficulty eating regular diet, ambulating, voiding without difficulty, and generally without complaints. Time Spent with Patient Time attestation: Total time spent providing and/or coordinating discharge services: Exam Const: General: cooperative, healthy appearing and comfortable Nutritional Appearance: average body habitus Orientation/consciousness: oriented to person, oriented to place and oriented to time HENMT: Head: normal to inspection Resp: Effort & Inspection: normal respiratory effort Cardio: Rate: regular rate Rhythm: regular rhythm Heart sounds: S1 normal heart sound present and S2 normal heart sound present GI: Inspection: normal to inspection and incision ( Wounds are clean dry and intact) DS: Data Data Completed and Pending Pending studies at discharge: Pending at discharge 10/18/23 08:38 Surgical [PTH] Routine Labs on day of discharge: Labs from last 24 hours 10/18/23 06:21 POC Capillary Glucose 144 H Discharge Plan Discharge Patient Disposition: Home, Self-Care Stand Alone Forms: General Discharge Instructions Follow-up/Referrals: Devang Nesbitt MD [Physician] - Discharge Medications: New hydrocodone-acetaminophen 5-325 mg tablet 1 tablet PO Q4H PRN (Reason: pain) Qty: 30 0RF No Action gabapentin 300 mg capsule 300 mg PO BID duloxetine 60 mg capsule,delayed release(DR/EC) 120 mg PO QAM hydroxyzine HCl 25 mg tablet 25 mg PO QAM primidone 50 mg tablet 50 mg PO QAM sulfasalazine 500 mg tablet,delayed release (DR/EC) 1,500 mg PO BID aspirin [Adult Aspirin EC Low Strength] 81 mg Tablet,Delayed Release (Dr/Ec) 81 mg PO DAILY acetaminophen 500 mg Tablet 500 mg PO BID lamotrigine 25 mg tablet 25 mg PO QAM diphenhydramine HCl [Benadryl] 25 mg Capsule 50 mg PO HS PRN (Reason: Insomnia) diclofenac sodium 75 mg tablet,delayed release (DR/EC) 75 mg PO BID Cosentyx 150 mg/mL Syringe 150 mg SUBCUT [id number] losartan 50 mg tablet 50 mg PO QAM metoprolol succinate 50 mg tablet extended release 24 hr 50 mg PO QAM tramadol 50 mg tablet 50 mg PO BID lorazepam 0.5 mg tablet 0.5 mg PO HS pantoprazole 40 mg tablet,delayed release (DR/EC) 40 mg PO QAM Rx Instructions: TAKE 1 TABLET BY MOUTH EVERY DAY IN THE MORNING trazodone 50 mg tablet 100 mg PO HS Qty: 270 1RF amlodipine [Norvasc] 5 mg tablet 10 mg PO HS Qty: 180 1RF
[2023-10-18 09:23] LABS: Glucose Point of Care 176 mg/dl (65-105)
[2023-10-18] MEDS: fentaNYL CITRATE INJ (*CRX) 100 MCG/2 ML VIAL 25 MCG IV PUSH ×3 (09:36→09:58)
[2023-10-18] MEDS: LACTATED RINGERS 1,000 ML 100 ML IV CONT (11:25)
[2023-10-18] MEDS: SIMETHICONE 80 MG TAB.CHEW PO (13:45)
[2023-10-18] MEDS: HYDROcodone/acetaminophen (*CRX) 5-325 MG TABLET 1 TAB PO ×2 (13:49→20:28)
[2023-10-18 16:58] LABS: Glucose Point of Care 198 mg/dl (65-105)
[2023-10-18] MEDS: DOCUSATE SODIUM 100 MG CAPSULE PO (17:01)
--- NOTE | 2023-10-18 20:24 | PM.IMCN ---
Assessment and Plan Assessment and plan (1) Diabetes mellitus: Qualifiers: Diabetes mellitus complication status: with hyperglycemia Diabetes mellitus chcf insulin use: without intermediate project manager use Diabetes mellitus type: type 2 Qualified Code(s): E11.65 - Type 2 diabetes mellitus with hyperglycemia Code(s): E11.9 - Type 2 diabetes mellitus without complications Status: Acute Assessment and Plan: - Hypoglycemia protocol - POC blood glucose ACHS - not currently on home medication - correct regimen ordered - low dose TIDWM and HS - A1C ordered (2) Fibroids: Code(s): D21.9 - Benign neoplasm of connective and other soft tissue, unspecified Status: Acute Assessment and Plan: - s/p hysterectomy robotic hysterectomy and bilateral salpingectomy salpingo-oophorectomy on 10/18 - plan for discharge tomorrow - continue heat therapy and pain medications prn - diet resumed (3) Tobacco abuse: Code(s): Z72.0 - Tobacco use Status: Acute Assessment and Plan: -scant wheeze on exam and low O2 sat post-procedure - 88%. Currently requiring 1.5L NC to maintain above 96% -albuterol inhaler ordered -nicotine patch ordered -monitor O2 (4) Hypertension: Qualifiers: Hypertension type: essential hypertension Qualified Code(s): I10 - Essential (primary) hypertension Code(s): I10 - Essential (primary) hypertension Status: Inactive Assessment and Plan: -chronic -continue home medications: amlodipine, metoprolol, losartan -monitor Plan Blood sugar initially 144 post-procedure. Last recheck 198. A1C in April of 2023 was 5.2. patient is currently not on diabetes medications. A1c ordered for a.m. labs. Dependent on results, patient may need to be referred to her PCP to initiate DM medications. Was recently on steroids, completed a few weeks ago. Continue to monitor glucoses. Reports she is currently a smoker for the past 3 months, formally had period of cessation. Currently experiencing mild hypoxia post procedure with O2 saturation initially at 88% on room air. Currently requiring 1.5 L nasal cannula to maintain above 96%. Will trial albuterol inhaler and nicotine patch provided. Diet: Clear liquid GI Prophylaxis: pantoprazole DVT Prophylaxis: SCDs, enoxaparin Lines: pIV Code Status: Full Code HPI Date of Consult Consult date: 10/18/23 Requesting Physician: Devang Love MD Primary Care Provider: Hugh Mendez MD Consult Narrative Reason for consult: Diabetes Managment Narrative: Blanca Nam is a 77 year old female presented here for robotic hysterectomy and bilateral salpingectomy salpingo-oophorectomy secondary to fibroids and polyps with PMH of DM (not currently on meds), current smoker, ankylosing spondylitis, anxiety, B12 deficiency, depression, fatty liver, GERD, HLD, KIANNA, psoriasis, RA, and seizures. Patient had a robotic hysterectomy and bilateral salpingectomy salpingo-oophorectomy performed on 10/18/23 by Urban Love. No immediate post-op complications. Currently reporting mild abdominal discomfort and distention. Has been experiencing excessive thirst specifically for water, excessive urination, clamminess, fatigue, and weakness for the past month. Patient has hx of DM. Not currently on medications. Last A1C was 5.2 on 05/15/2023. 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 Blood sugar initially 144, most recent 198. Recently on steroids for a flare up of ankylosing spondylitis. Steroids were completed a few weeks ago. Labs today showed: No leukocytosis, no anemia, and creatinine 0.6. Review of Systems Review of Systems: All systems reviewed & are unremarkable except as noted in HPI and below PMFSH Past Medical History Medical History (Updated 10/18/23 @ 22:13 by Katherine Dixon, LILY) Anal fissure Anemia Ankylosing spondylitis An
[2023-10-18] MEDS: GABAPENTIN 300 MG CAPSULE PO (20:27)
[2023-10-18] MEDS: amLODIPine BESYLATE 5 MG TABLET 10 MG PO (20:28)
[2023-10-18] MEDS: LORazepam (*CRX) 0.5 MG TABLET PO (20:30)
[2023-10-19] MEDS: HYDROcodone/acetaminophen (*CRX) 5-325 MG TABLET 1 TAB PO ×2 (01:30→09:53)
[2023-10-19 04:30] VITALS: BP 145/67; PULSE 79; RESP 15; TEMP 36.7; O2SAT 92
[2023-10-19 04:47] LABS: Basophils Percent Auto 0.2 % (0.2-1.2); Eosinophils Percent Auto 0.2 % (0-4.4); Hematocrit 34.4 % (37.0-47.0); Hemoglobin 10.8 g/dL (12.0-15.0); Immature Granulocyte Absolute 0.07 K/mm3 (0.00-0.031); Immature Granulocyte Percent A 0.6 % (0-0.5); Lymphocytes Absolute Auto 1.76 K/mm3 (0.9-3.2); Lymphocytes Percent Auto 14.4 % (18.3-44.2); Mean Corpuscular HGB Conc 31.4 g/dl (32-36); Mean Corpuscular Hemoglobin 29.9 pg (26-34); Mean Corpuscular Volume 95.3 fl (80-100); Monocytes Percent Auto 8.5 % (2.6-8.5); Neutrophils Absolute Auto 9.4 K/mm3 (1.3-6.7); Neutrophils Percent Auto 76.1 % (45.5-73.1); Platelet Count Result 224 k/mm3 (150-375); Red Blood Count 3.61 M/mm3 (4.2-5.4); White Blood Count 12.3 K/mm3 (4.5-10.0)
[2023-10-19] MEDS: HYDROcodone/acetaminophen (*CRX) 10-325 MG TABLET 1 TAB PO (04:50)
[2023-10-19 05:00] LABS: Hemoglobin A1C 6.3 % (<5.7)
[2023-10-19 09:16] LABS: Glucose Point of Care 164 mg/dl (65-105)
--- NOTE | 2023-10-19 09:25 | PM.GYNPNOP ---
LIABILITY CLAIMS MANAGER - A/P Assessment and plan (1) Enlarged uterus: Code(s): N85.2 - Hypertrophy of uterus Status: Acute Assessment and Plan: A: POD#1, doing well. P: Home to f/u 2 weeks. (2) Fibroids: Code(s): D21.9 - Benign neoplasm of connective and other soft tissue, unspecified Status: Acute Postoperative Procedures: Procedures Operation Date: 10/18/23 09:30 Actual Procedure Side Surgeon p Robotic Assisted Supracervical Hysterectomy with Bilateral Salpingo-oophorectomy, Extensive Lysis of Adhesions Bilateral Devang Love MD Time Spent With Patient Time with patient: less than 15 minutes LIABILITY CLAIMS MANAGER- PN:Subj Post-Op Subjective Date/time seen: 10/19/23 09:25 Interval history: Pain OK. Tolerating diet. Voiding. Had some confusion last night. Was seen by hospitalist. Has been able to wean from oxygen. Would like to go home. Exam Narrative: AVSS I/O OK ABD soft, nontender. Incisions c/d/i. EXT nontender LIABILITY CLAIMS MANAGER - PN: Obj Data Vital Signs Vital Signs: Vital Signs - 24 hr 10/18/23 09:30 10/18/23 09:45 10/18/23 10:00 Temperature Pulse Rate 74 75 74 Respiratory Rate 15 13 10 L Blood Pressure 160/72 H 155/59 H 166/68 H Pulse Oximetry 96 95 96 Oxygen Delivery Simple Face Mask Nasal Cannula Nasal Cannula Oxygen Flow Rate 6 3 2 10/18/23 10:15 10/18/23 10:30 10/18/23 10:35 Temperature 36.1 C L Pulse Rate 74 75 Respiratory Rate 15 16 Blood Pressure 142/88 H 154/69 H Pulse Oximetry 94 97 97 Oxygen Delivery Nasal Cannula Nasal Cannula Oxygen Flow Rate 2 2 10/18/23 15:50 10/18/23 17:00 10/18/23 20:30 Temperature 36.4 C L 36.6 C Pulse Rate 87 80 Respiratory Rate 20 15 Blood Pressure 176/82 H 160/83 H 172/77 H Pulse Oximetry 93 96 Oxygen Delivery Oxygen Flow Rate 10/18/23 20:30 10/18/23 21:30 10/18/23 21:30 Temperature Pulse Rate 80 76 76 Respiratory Rate 15 15 15 Blood Pressure 137/82 Pulse Oximetry 96 94 94 Oxygen Delivery Nasal Cannula Nasal Cannula Oxygen Flow Rate 2.5 1.5 10/19/23 04:30 10/19/23 04:30 Temperature 36.7 C Pulse Rate 79 79 Respiratory Rate 15 15 Blood Pressure 145/67 H Pulse Oximetry 92 92 Oxygen Delivery Room Air Oxygen Flow Rate Intake/Output Intake/Output: Intake & Output 10/16/23 10/17/23 10/18/23 10/19/23 23:59 23:59 23:59 23:59 Intake Total 1150 120 Output Total 1035 200 Balance 115 -80 Meds/Results Medications: Active Medications Generic Name Dose Route Start Last Admin Trade Name Freq PRN Reason Stop Dose Admin Acetaminophen 500 mg 10/19/23 09:00 Acetaminophen 500 Mg Tablet PO BID DORYS Hydrocodone Bitart/Acetaminophen 1 tab 10/18/23 10:26 10/19/23 01:30 Hydrocodone/Acetaminophen (*Crx) 5-325 Mg Tablet PO 1 tab Q3H PRN Administration Pain Rated 5 or Less Hydrocodone Bitart/Acetaminophen 1 tab 10/18/23 10:26 10/19/23 04:50 Hydrocodone/Acetaminophen (*Crx) 10-325 Mg Tablet PO 1 tab Q3H PRN Administration Pain Rated 6 or Greater Albuterol 2 puff 10/18/23 22:02 Albuterol Sulfate (*Sp) Aerosol 1 Puff INHALATION QIDRT PRN Shortness Of Breath Amlodipine Besylate 10 mg 10/18/23 21:00 10/18/23 20:28 Amlodipine Besylate 5 Mg Tablet PO 10 mg HS DORYS Administration Dextrose 12.5 gm 10/18/23 20:22 Dextrose 50% 25 Gm/50 Ml Syringe IV PUSH PRN PRN Hypoglycemia Protocol Diclofenac Sodium 75 mg 10/19/23 08:00 Diclofenac Sod 75 Mg Tablet.Ec PO BIDWM [facility] Docusate Sodium 100 mg 10/18/23 17:00 10/18/23 17:01 Docusate Sodium 100 Mg Capsule PO 100 mg BID DORYS Administration Duloxetine HCl 120 mg 10/19/23 09:00 Duloxetine Hcl 60 Mg Capsule.Dr PO QAM [facility] Enoxaparin Sodium 40 mg 10/19/23 09:00 Enoxaparin 40 Mg/0.4 Ml Syringe SUB-Q DAILY DORYS Gabapentin 300 mg 10/18/23 21:00 10/18/23 20:27 Gabapentin 300 Mg Capsule PO 300 mg
[2023-10-19 09:30] VITALS: BP 150/61; PULSE 73; RESP 18; TEMP 36.7; O2SAT 92
[2023-10-19] MEDS: ENOXAPARIN 40 MG/0.4 ML SYRINGE SUB-Q (09:45)
--- NOTE | 2023-10-19 09:46 | P.PNAN_ITS ---
Anes - Prog Note Post-Op Date/Time: 10/19/23 09:46 Cardiovascular status: normal Respiratory status: normal Airway patency: baseline Mental status: baseline Post-Op hydration status: normal Vital Signs: Last Vital Signs Temp 36.7 C 10/19/23 04:30 Pulse 79 10/19/23 04:30 Resp 15 10/19/23 04:30 BP 145/67 H 10/19/23 04:30 Pulse Ox 92 10/19/23 04:30 O2 Del Method Room Air 10/19/23 04:30 O2 Flow Rate 1.5 10/18/23 21:30 Pain Score (VAS): 3 I/O: Intake & Output 10/18/23 10/19/23 10/19/23 23:59 07:59 15:59 Intake Total 200 120 Output Total 250 200 Balance -50 -80 Laboratory Tests 10/19/23 04:12 10/18/23 10/19/23 10/19/23 16:56 04:12 09:11 WBC 12.3 H RBC 3.61 L Hgb 10.8 L Hct 34.4 L MCV 95.3 MCH 29.9 MCHC 31.4 L RDW 15.0 H Plt Count 224 MPV 10.0 Immature Gran % (Auto) 0.6 H Neut % (Auto) 76.1 H Lymph % (Auto) 14.4 L [place] % (Auto) 8.5 Eos % (Auto) 0.2 Baso % (Auto) 0.2 Lymph # (Auto) 1.76 [place] # (Auto) 1.0 H Eos # (Auto) 0.0 Baso # (Auto) 0.0 Abs Immat Gran (auto) 0.07 H Absolute Neuts (auto) 9.4 H Absolute Nucleated RBC 0.0 Nucleated RBC % 0.0 POC Capillary Glucose 198 H 164 H Hemoglobin A1c 6.3 H Post-procedural complaints: none Patient Feedback: Patient satisfied with anesthetic care.
[2023-10-19] MEDS: SIMETHICONE 80 MG TAB.CHEW PO (09:48)
[2023-10-19] MEDS: DULoxetine HCL 60 MG CAPSULE.DR 120 MG PO (09:49)
[2023-10-19] MEDS: sulfaSALAzine 500 MG TABLET 1500 MG PO (09:49)
[2023-10-19 09:50] VITALS: PULSE 72
[2023-10-19] MEDS: PANTOPRAZOLE 40 MG TABLET PO (09:50)
[2023-10-19] MEDS: GABAPENTIN 300 MG CAPSULE PO (09:50)
[2023-10-19] MEDS: METOPROLOL SUCCINATE EXT REL 50 MG TABCR PO (09:50)
[2023-10-19] MEDS: LOSARTAN POTASSIUM 50 MG TABLET PO (09:50)
[2023-10-19] MEDS: DOCUSATE SODIUM 100 MG CAPSULE PO (09:52)
[2023-10-19] MEDS: ACETAMINOPHEN 500 MG TABLET PO (09:52)
[2023-10-19] MEDS: PRIMIDONE 50 MG TABLET PO (09:52)
[2023-10-19] MEDS: hydrOXYzine HCL 25 MG TABLET PO (09:53)
[2023-10-19] MEDS: lamoTRIgine 25 MG TABLET PO (09:53)
== END 2023-10-19 10:30 | disposition home or self-care (01) ==
LOC: ANHSURGERY 06:32 → ANHOB2 10:31
PROVIDERS: Student in an Organized Health Care Education/Training Program; PCP Emergency Medicine; Visit Provider Obstetrics & Gynecology
PROC: (CPT 58542; principal; 2023-10-18 09:30)
DX: D25.9 Leiomyoma of uterus, unspecified (principal); N73.6 Female pelvic peritoneal adhesions (postinfective); N83.299 Other ovarian cyst, unspecified side; D27.9 Benign neoplasm of unspecified ovary; N83.8 Other noninflammatory disorders of ovary, fallopian tube and broad ligament; R09.02 Hypoxemia; E11.65 Type 2 diabetes mellitus with hyperglycemia; R10.2 Pelvic and perineal pain; E78.2 Mixed hyperlipidemia; M05.879 Other rheumatoid arthritis with rheumatoid factor of unspecified ankle and foot; L40.9 Psoriasis, unspecified; G47.33 Obstructive sleep apnea (adult) (pediatric); J43.9 Emphysema, unspecified; K21.9 Gastro-esophageal reflux disease without esophagitis; E11.42 Type 2 diabetes mellitus with diabetic polyneuropathy; F41.9 Anxiety disorder, unspecified; F32.A Depression, unspecified; K59.03 Drug induced constipation; G40.909 Epilepsy, unspecified, not intractable, without status epilepticus; Z79.620 Long term (current) use of immunosuppressive biologic; Z79.82 Long term (current) use of aspirin; Z79.891 Long term (current) use of opiate analgesic; F17.210 Nicotine dependence, cigarettes, uncomplicated; E66.9 Obesity, unspecified; Z68.32 Body mass index [BMI] 32.0-32.9, adult
CPT/HCPCS: 58542; S2900; 36415; 82948; 83036; 85025; 88307; 99199; A9270; J0330; J1100; J1170; J1580; J1650; J1885; J2250; J2405; J2704; J3010; J7030; J7120

== ENCOUNTER 2023-12-06 15:28 | Outpatient (CLI) | payer MEDICARE, OTHER, SELFPAY ==
[2023-12-06 17:00] LABS: Basophils Percent Auto 0.4 % (0.2-1.2); Eosinophils Absolute Auto 0.1 K/mm3 (0-0.3); Eosinophils Percent Auto 0.6 % (0-4.4); Hematocrit 38.3 % (37.0-47.0); Hemoglobin 12.2 g/dL (12.0-15.0); Immature Granulocyte Absolute 0.03 K/mm3 (0.00-0.031); Immature Granulocyte Percent A 0.3 % (0-0.5); Lymphocytes Absolute Auto 2.09 K/mm3 (0.9-3.2); Lymphocytes Percent Auto 21.1 % (18.3-44.2); Mean Corpuscular HGB Conc 31.9 g/dl (32-36); Mean Corpuscular Hemoglobin 29.5 pg (26-34); Mean Corpuscular Volume 92.7 fl (80-100); Mean Platelet Volume 10.4 fl (7.4-10.4); Monocytes Absolute Auto 1.1 K/mm3 (0.1-0.6); Monocytes Percent Auto 11.1 % (2.6-8.5); Neutrophils Absolute Auto 6.6 K/mm3 (1.3-6.7); Neutrophils Percent Auto 66.5 % (45.5-73.1); Platelet Count Result 324 k/mm3 (150-375); Red Blood Count 4.13 M/mm3 (4.2-5.4); Red Cell Distribution Width 15.5 % (11.5-14.5); White Blood Count 9.9 K/mm3 (4.5-10.0)
[2023-12-06 17:06] LABS: Alanine Aminotransferase 29 U/L (6-35); Albumin Level 3.8 g/dL (3.5-5.1); Alkaline Phosphatase 74 U/L (38-126); Anion Gap 2 mmol/L (8-16); Aspartate Amino Transferase 27 U/L (14-36); Bilirubin,Total 0.4 mg/dL (0.2-1.3); Blood Urea Nitrogen 16 mg/dL (7-17); Calcium 9.1 mg/dL (8.4-10.2); Carbon Dioxide 31 mmol/L (22-30); Chloride 103 mmol/L (98-107); Estimated Glomerular Filt Rate > 60; Glucose 131 mg/dL (65-110); Potassium 3.5 mmol/L (3.4-5.0); Sodium 136 mmol/L (137-145)
== END 2023-12-06 15:29 | disposition home or self-care (01) ==
LOC: ANHGOSHLAB 15:30
PROVIDERS: PCP Emergency Medicine; Visit Provider Emergency Medicine
DX: I16.0 Hypertensive urgency (principal)
CPT/HCPCS: 36415; 80053; 85025

== ENCOUNTER 2024-03-29 12:47 | Emergency (ER) | payer MEDICARE, OTHER, SELFPAY ==
--- NOTE | ~2024-03-29 | XR_ITS ---
AP and oblique views of the right ribs Clinical History: Pain Findings: No rib fracture is seen. Osseous alignment is anatomic. Lungs are clear, without focal cons olidation or pleural effusion. Cardiomediastinal contour is within normal limits. Soft tissues are un remarkable. Impression: No rib fracture is seen. Clear lungs. Reviewed, dictated and finalized at [facility]. Impression: No rib fracture is seen. Clear lungs.
[2024-03-29 12:59] VITALS: BP 152/65; PULSE 80; RESP 18; TEMP 36.4; O2SAT 98
--- NOTE | 2024-03-29 13:08 | ED.GENADULT ---
HPI - General Adult General Chief complaint: Extremity Injury, Upper Stated complaint: Right side of body pain History of Present Illness HPI narrative: Patient presents with right-sided rib pain. Patient denies any shortness of breath and no chest pain. Patient states 2 days ago her electric scooter quit and she had a pull herself into the house. Patient states once inside the health she she landed on her right side injuring her right ribs. No bruising noted no deformity noted. Patient denies any head injury and denies any other injuries at this time. Related Data Home Medications Medication Instructions Recorded Confirmed hydroxyzine HCl 25 mg tablet 25 mg PO QAM 03/17/23 03/29/24 duloxetine 60 mg capsule,delayed 120 mg PO QAM 05/29/23 03/29/24 release acetaminophen 500 mg tablet 500 mg PO BID 10/10/23 03/29/24 aspirin 81 mg tablet,delayed 81 mg PO DAILY 10/10/23 03/29/24 release diclofenac sodium 75 mg 75 mg PO BID 10/10/23 03/29/24 tablet,delayed release diphenhydramine HCl 25 mg capsule 50 mg PO HS PRN Insomnia 10/10/23 03/29/24 (Benadryl) lamotrigine 25 mg tablet 25 mg PO QAM 10/10/23 03/29/24 metoprolol succinate 50 mg 50 mg PO QAM 10/10/23 03/29/24 tablet,extended release 24 hr primidone 50 mg tablet 50 mg PO QAM 10/10/23 03/29/24 secukinumab 150 mg/mL subcutaneous 150 mg subcut [id number] 10/10/23 03/29/24 syringe (Cosentyx) sulfasalazine 500 mg 1,500 mg PO BID 10/10/23 03/29/24 tablet,delayed release tramadol 50 mg tablet 50 mg PO BID 10/10/23 03/29/24 prednisone 5 mg tablet See Rx Instructions .Route .COMPLEX 03/29/24 03/29/24 Allergies Allergy/AdvReac Type Severity Reaction Status Date / Time cephalexin Allergy Severe Anaphylaxis Verified 03/29/24 12:52 Review of Systems Review of Systems: CONSTITUTIONAL: Denies fever, chills, or sweats. EYES: Denies visual changes, redness, or discharge. ENT: Denies rhinorrhea, congestion, sore throat, or otalgia. CARDIOVASCULAR: Denies chest pain, palpitations, or edema. RESPIRATORY: Denies cough or dyspnea. GASTROINTESTINAL: Denies abdominal pain, nausea, vomiting, or diarrhea. GENITOURINARY: Denies dysuria or hematuria. SKIN: Denies rash or itching. MUSCULOSKELETAL: Denies back pain, joint pain, or myalgia. NEUROLOGIC: Denies headache, numbness, or weakness. PSYCHIATRIC: Denies anxiety or depression. 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 Sleep apnea in adult Tobacco abuse Surgical History Surgical History H/O section History of carpal tunnel release History of carpal tunnel surgery of left wrist History of colonoscopy History of lumbar laminectomy History of sinus surgery Hx of cataract surgery Hx of tubal ligation Status post anal fissurectomy Status post cataract extraction of both eyes with insertion of intraocular lens (~2014) Family History Family History Mother Hypertension, Onset Age: 97 Father Family history of malignant neoplasm Family history of lung cancer, Onset Age: 94 Colon cancer Sibling Family history of blood dyscrasia Other Family history of arthritis Family history of seizure dis
[2024-03-29] MEDS: KETOROLAC (*BKC) 60 MG/2 ML VIAL 30 MG IM (13:18)
== END 2024-03-29 14:15 | disposition home or self-care (01) ==
PROVIDERS: Emergency Provider Nurse Practitioner Family; PCP Emergency Medicine
DX: R07.81 Pleurodynia (principal); Z87.891 Personal history of nicotine dependence; K76.0 Fatty (change of) liver, not elsewhere classified; K21.9 Gastro-esophageal reflux disease without esophagitis; I10 Essential (primary) hypertension; E78.2 Mixed hyperlipidemia; E11.42 Type 2 diabetes mellitus with diabetic polyneuropathy; M05.9 Rheumatoid arthritis with rheumatoid factor, unspecified; G40.909 Epilepsy, unspecified, not intractable, without status epilepticus; F41.9 Anxiety disorder, unspecified; H35.30 Unspecified macular degeneration; M17.12 Unilateral primary osteoarthritis, left knee; Z79.82 Long term (current) use of aspirin; Z85.828 Personal history of other malignant neoplasm of skin
CPT/HCPCS: 71101; 96372; 99213; G0463; J1885

== ENCOUNTER 2024-06-30 11:45 | Inpatient (IN) | payer MEDICARE, OTHER, SELFPAY ==
[2024-06-30] VITALS (10 sets, daily range): BP systolic 147–189; BP diastolic 61–91; PULSE 74–94; RESP 12–20; TEMP 36.5–36.9; O2SAT 92–98; BMI 33.7
--- NOTE | ~2024-06-30 | MR_ITS ---
MRI of the brain Clinical History: Subacute stroke Technique: Axial and sagittal T1-weighted images were acquired. These were followed by axial T2-weigh justine, diffusion weighted, gradient, and FLAIR images. COMPARISON: 06/10/2023 Findings: There is restricted diffusion in the medial, posterior right cerebellar hemisphere, which c orrelates with the hypodense area on CT scan, compatible with acute to subacute infarct. Extensive ch ronic white matter disease throughout the periventricular white matter and mayito otherwise is compatib le with severe chronic microvascular ischemic change. No intracranial hemorrhage evident. Ventricles and subarachnoid spaces are mildly dilated. Orbits are unremarkable. Paranasal sinuses and mastoid air cells are clear. Sagittal midline structures are intact. IMPRESSION: Acute to subacute right cerebellar infarct, which correlates with the hypodense area seen on CT scan from 06/30/2024. No intracranial hemorrhage. Extensive chronic white matter disease, as above, most compatible severe chronic microvascular ischem ic change. Reviewed, dictated and finalized at [facility]. IMPRESSION: Acute to subacute right cerebellar infarct, which correlates with the hypodense area seen on CT scan from 06/30/2024. No intracranial hemorrhage. Extensive chronic white matter disease, as above, most compatible severe chroni c microvascular ischemic change.
--- NOTE | ~2024-06-30 | CT_ITS ---
CT head without contrast Indication: Multiple falls COMPARISON: 10/24/2022 Technique: Serial scans were obtained through the brain without the administration of contrast. Dose reduction technique was used on this scan by utilizing automated exposure control and iterative recon struction technique. The dose-length product (DLP) was 681.00 mGy-cm. Findings: There is no evidence of intracranial hemorrhage or mass lesion. There is a new hypodense ar ea in the medial right cerebellar hemisphere, most compatible with infarct, likely subacute in nature . The ventricles and subarachnoid spaces are dilated, consistent with moderate atrophy. Extensive lo w attenuation regions are seen within the periventricular white matter bilaterally, likely representi ng changes from chronic microvascular ischemic disease. There is no evidence of edema, mass effect o r midline shift. The visualized paranasal sinuses and mastoid air cells are clear. Impression: Infarct in the medial right cerebellar hemisphere is new from prior exam, likely subacute in nature. Consider MR as indicated for further evaluation. No intracranial hemorrhage. Stable chronic white matter changes and generalized atrophy otherwise. Reviewed, dictated and finalized at location [facility]. Impression: Infarct in the medial right cerebellar hemisphere is new from prior exam, likel y subacute in nature. Consider MR as indicated for further evaluation. No intracranial hemorrhage. Stable chronic white matter changes and generalized atrophy otherwise.
--- NOTE | ~2024-06-30 | XR_ITS ---
XR hip RT min 2V 07/02/2024 10:19 Indication: Right hip pain Procedure: 2 views right hip Comparison: Comparison to multiple prior studies sequentially, with oldest reviewed study dated 02/24. Findings: There is moderate osteoarthritis of the right hip. No fracture, subluxation or dislocation. No significant soft tissue abnormality. No foreign bodies. Impression: 1: Moderate osteoarthritis of the right hip. Reviewed, dictated and finalized at location [facility]. Impression: 1: Moderate osteoarthritis of the right hip.
--- NOTE | ~2024-06-30 | US_ITS ---
EXAMINATION: US venous doppler [facility] DATE: 07/01/2024 15:18 INDICATION: Right lower limb pain. Possible study. TECHNIQUE: Grayscale ultrasound images without and with compression and Doppler ultrasound images of the bilateral lower extremity veins were obtained. COMPARISON: None. FINDINGS: The visualized portions of right common femoral vein, profunda (deep) femoral vein, femoral vein, pop liteal vein, posterior tibial veins, peroneal veins, gastrocnemius vein and greater saphenous vein ou tflow are patent. The visualized portions of left common femoral vein, profunda femoral vein, femoral vein, popliteal v ein, posterior tibial veins, peroneal veins, gastrocnemius vein and greater saphenous vein outflow ar e patent. IMPRESSION: 1. No deep venous thrombosis in either lower limb. Reviewed, dictated and finalized at location [facility].
--- NOTE | ~2024-06-30 | XR_ITS ---
XR femur RT min 2V 07/02/2024 10:19 Indication: Right leg pain after fall Procedure: 2 views right femur Comparison: 07/02/2024 Findings: There is mild-moderate osteoarthritis of the right hip. No fracture, subluxation or disloca tion. There is chondrocalcinosis of the knee. No joint effusion. There is atherosclerosis. Impression: 1: No acute fracture. Reviewed, dictated and finalized at location [facility]. Impression: 1: No acute fracture.
--- NOTE | ~2024-06-30 | CT_ITS ---
CTA brain carotid Ordering provider: Jorge Mendoza MD History: . cva . Comparison: None. Technique: CT angiogram head and neck was performed following timed intravenous injection of contrast . Thin slice axial images and reformatted coronal images were obtained. Three dimensional reformatted images of the brain were also obtained usinRadiation reduction technique utilized. The dose-length product was 1016.28 mGy-cm. 100 mL Omnipaque 350 was given IV. g a [employer] workstation. FINDINGS: HEAD: --ANTERIOR AND MIDDLE CEREBRAL ARTERIES AND BRANCHES: Normal caliber and contour. --INTERNAL CAROTID ARTERIES: Mild atheromatous disease but no significant stenosis. No occlusion. --BASILAR ARTERY AND BRANCHES: Normal caliber and contour. No atheromatous disease. Dominant right ve rtebral artery. Small caliber of the left. --POSTERIOR CEREBRAL ARTERIES: The right is smaller in caliber compared to the left with nonvisualiza tion of the distal branches of the right.. --POSTERIOR COMMUNICATING ARTERIES: The right continues as the posterior cerebral artery. The left is not visualized which is probably related to congenital absence or small size. --ANEURYSM: None visualized. --BRAIN: Please refer to report of CT head performed the same day. --BONES AND SUPERFICIAL SOFT TISSUES: Please refer to report of CT head performed the same day. --PARANASAL SINUSES AND MASTOIDS: Please refer to report of CT head done the same day. NECK: --RIGHT CERVICAL CAROTID SYSTEM: Mild atheromatous disease of the carotid bulb and proximal internal carotid artery without significant stenosis. Percent stenosis per NASCET criteria is 0%. No carotid dissection. Otherwise, no significant atheromatous disease or stenosis of the cervical carotid system . --LEFT CERVICAL CAROTID SYSTEM: Mild atheromatous disease of the carotid bulb and proximal internal c arotid artery without significant stenosis. Percent stenosis per NASCET criteria is 10%. No carotid dissection. Otherwise, no significant atheromatous disease or stenosis of the cervical carotid system. --VERTEBRAL ARTERIES: Dominant right with small caliber on the left. --VISUALIZED AORTIC ARCH AND BRANCHING VESSELS: Mild atheromatous disease but no significant stenosis . --SOFT TISSUES: Tiny nodules in the right lobe of the thyroid. --CERVICAL SPINE: Age appropriate degenerative changes. IMPRESSION: 1. Small caliber with nonvisualization of the right posterior cerebral artery. 2. CTA neck. Percent stenosis per NASCET criteria is 10% on the left. 3. Nonvisualization of the distal branches of the right posterior cerebral artery which may be due t o small caliber. Possibility of occlusion is not excluded. MRI evaluation is advised. Reviewed, dictated and finalized at location A. IMPRESSION: 1. Small caliber with nonvisualization of the right posterior cerebral artery. 2. CTA neck. Percent stenosis per NASCET criteria is 10% on the left. 3. Nonvisualization of the distal branches of the right posterior cerebral art martina which may be due to small caliber. Possibility of occlusion is not exclude d. MRI evaluation is advised.
[2024-06-30 12:46] LABS: Basophils Percent Auto 0.4 % (0.2-1.2); Eosinophils Absolute Auto 0.1 K/mm3 (0-0.3); Eosinophils Percent Auto 1.3 % (0-4.4); Hematocrit 36.2 % (37.0-47.0); Hemoglobin 11.7 g/dL (12.0-15.0); Immature Granulocyte Absolute 0.06 K/mm3 (0.00-0.031); Immature Granulocyte Percent A 0.7 % (0-0.5); Lymphocytes Absolute Auto 2.21 K/mm3 (0.9-3.2); Mean Corpuscular HGB Conc 32.3 g/dl (32-36); Mean Corpuscular Hemoglobin 28.9 pg (26-34); Mean Corpuscular Volume 89.4 fl (80-100); Mean Platelet Volume 10.7 fl (7.4-10.4); Monocytes Absolute Auto 0.8 K/mm3 (0.1-0.6); Monocytes Percent Auto 8.8 % (2.6-8.5); Neutrophils Percent Auto 64.8 % (45.5-73.1); Platelet Count Result 296 k/mm3 (150-375); Red Blood Count 4.05 M/mm3 (4.2-5.4); Red Cell Distribution Width 15.9 % (11.5-14.5); White Blood Count 9.2 K/mm3 (4.5-10.0)
[2024-06-30 13:05] LABS: Alanine Aminotransferase 26 U/L (6-35); Alkaline Phosphatase 149 U/L (38-126); Anion Gap 7 mmol/L (4-12); Aspartate Amino Transferase 52 U/L (14-36); Bilirubin,Total 0.5 mg/dL (0.2-1.3); Blood Urea Nitrogen 9 mg/dL (7-17); Calcium 9.2 mg/dL (8.4-10.2); Carbon Dioxide 30 mmol/L (22-30); Chloride 100 mmol/L (98-107); Estimated CRCL calculation 75 ml/min; Estimated Glomerular Filt Rate > 60; Glucose 151 mg/dL (65-110); Potassium 3.7 mmol/L (3.4-5.0); Sodium 137 mmol/L (137-145)
--- NOTE | 2024-06-30 14:04 | PC.NURSE ---
unsuccessful attempt w/ straight cath, pt to CT scan via stretcher at this time
[2024-06-30] MEDS: SODIUM CHLORIDE 0.9% IV 1,000 ML 999 ML IV CONT (14:38)
[2024-06-30 14:49] LABS: Add Urine Microscopic? NO; Appearance Urine Clear (Clear); Bilirubin Urine Negative (Negative); Blood Urine Negative (Negative); Color Urine Yellow (Yellow); Glucose Urine UA Negative (Negative); Ketones Urine Negative (Negative); Leukocyte Esterase Ur Negative LEU/UL (Negative); Nitrate Urine Negative (Negative); Protein Urine Negative (Negative); Specific Grav Ur 1.025 (1.001-1.035); Urobilinogen Urine 0.2 mg/dL (<2.0); pH Urine 6.5 (5.0-9.0)
[2024-06-30] MEDS: MORPHINE SULFATE (*CRX) 4 MG/ML INJ IV PUSH (14:52)
[2024-06-30] MEDS: ONDANSETRON INJ 4 MG/2 ML VIAL IV PUSH (14:55)
--- NOTE | 2024-06-30 16:20 | ED.GENADULT ---
HPI - General Adult General Chief complaint: Fall Stated complaint: falls Time Seen by Provider: 06/30/24 12:06 Source: patient Mode of arrival: EMS Limitations: no limitations History of Present Illness HPI narrative: 78-year-old with a history of hypertension, hyperlipidemia, ankylosing spondylosis, wheelchair-bound was brought in from home with the complaints of multiple falls since yesterday she said she fell more than 4 times since yesterday. is at the bedside states that she can stand up and use the bedside commode, can ambulate few steps at times. He states that since he woke up this morning to use the restroom she was found on the floor. Patient denies any LOC. She denies any chest pain or shortness of breath. She states her lower extremities are weak. also reports that her left lower extremity is numb all the time. Onset (ago): day(s) Associated symptoms: denies other symptoms Related Data Home Medications Medication Instructions Recorded Confirmed acetaminophen 500 mg tablet 500 mg PO BID 10/10/23 06/03/24 aspirin 81 mg tablet,delayed 81 mg PO DAILY 10/10/23 06/03/24 release diclofenac sodium 75 mg 75 mg PO BID 10/10/23 06/03/24 tablet,delayed release diphenhydramine HCl 25 mg capsule 50 mg PO HS PRN Insomnia 10/10/23 06/03/24 (Benadryl) lamotrigine 25 mg tablet 25 mg PO QAM 10/10/23 06/03/24 metoprolol succinate 50 mg 50 mg PO QAM 10/10/23 06/03/24 tablet,extended release 24 hr primidone 50 mg tablet 50 mg PO QAM 10/10/23 06/03/24 secukinumab 150 mg/mL subcutaneous 150 mg subcut [id number] 10/10/23 06/03/24 syringe (Cosentyx) sulfasalazine 500 mg 1,500 mg PO BID 10/10/23 06/03/24 tablet,delayed release prednisone 5 mg tablet See Rx Instructions .Route .COMPLEX 03/29/24 06/03/24 pregabalin 50 mg capsule 50 mg PO TID 06/30/24 06/30/24 Allergies Allergy/AdvReac Type Severity Reaction Status Date / Time cephalexin Allergy Severe Anaphylaxis Verified 06/30/24 11:56 Review of Systems Review of Systems: All systems reviewed & are unremarkable except as noted in HPI and below Constitutional: Constitutional: Reports no additional constitutional complaints Eyes: Eyes: Reports no additional eye complaints ENT: Reports system reviewed and no additional complaints, except as documented Cardiovascular: Cardiovascular: Reports no additional cardiovascular complaints Respiratory: Respiratory: Reports no additional respiratory complaints Gastrointestinal: Gastrointestinal: Reports no additional gastrointestinal complaints Musculoskeletal: Musculoskeletal: Reports no additional musculoskeletal complaints Neurologic: Reports system reviewed and no additional complaints, except as documented [facility] Past Medical History Medical History Anal fissure Anemia Ankylosing spondylitis Anxiety B12 deficiency Bronchitis Closed nondisplaced fracture of proximal phalanx of lesser toe Constipation due to opioid therapy Depression Diabetes Diverticulitis Diverticulosis of colon (without mention of hemorrhage) Emphysema of lung Fatty liver Gastro-esophageal reflux disease without esophagitis History of basal cell carcinoma (BCC) Hypertension Macular degeneration Mixed hyperlipidemia Multiple sclerosis Obstructive sleep apnea Osteoarthritis of left knee Peripheral neuropathy Psoriasis 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
--- NOTE | 2024-06-30 16:27 | ECG_ITS ---
Test Date: 2024-06-30 16:31:56 Measurements Intervals [place] Rate: 82 P: 40 AL: 210 QRS: 15 QRSD: 102 T: 53 QT: 404 QTc: 474 Interpretive Statements SINUS RHYTHM WITH FIRST DEGREE AV BLOCK No previous ECG available for comparison Electronically Signed On 07-01-2024 09:38:10 CDT by Shana Veliz M.D.
--- NOTE | 2024-06-30 16:40 | PM.IMHP ---
H&P: HPI History of Present Illness Date/Time: 06/30/24 16:40 Chief Complaint: Multiple falls. Narrative: This is a very pleasant 78-year-old female smoker with multiple medical problems including rheumatoid arthritis, ankylosing spondylitis, chronic pain, diet-controlled type 2 diabetes mellitus, hypertension, fatty liver disease, anxiety, chronic obstructive pulmonary disease, anxiety, and other comorbidities who presented to the emergency department via EMS from home for evaluation after multiple falls. The patient provides the following history. She uses a scooter at home and is able to stand and pivot to transfer and can typically walk a few steps unassisted. Yesterday she noticed that legs seemed weaker than usual and she has been feeling increasingly off balance. She attributes her falls to a combination of these factors but she cannot really elaborate further. Her found her on the bathroom floor this morning after she again had a fall. She has not had any head trauma or loss of consciousness with the falls and luckily she has not sustained any injuries. She denies syncope, near syncope, visual changes (she has macular degeneration and her vision is always somewhat blurry), focal weakness, change in paresthesias from baseline (she reports neuropathy in her legs), facial droop, difficulty speaking and swallowing, chest pain, palpitations, shortness of breath, nausea, vomiting, diarrhea, and dysuria. In the ED: Blood pressures have been in the 160s to 180s systolic since arrival. The remainder of her vital signs have been stable. She is in a sinus rhythm with EKG showing first-degree AV block, nonspecific ST-T changes in anterolateral leads, and Q-wave in lead 3. Labs were significant for a hemoglobin 11.7, glucose 151, AST 52, alkaline phosphatase 149. Urinalysis was unremarkable. Head CT showed infarct in the medial right cerebellar hemisphere, likely subacute and stable chronic white matter changes. CTA of the head and neck did not show any areas of severe stenosis or large vessel occlusion. There is no neurology coverage this week and ED physician discussed this with the patient and her who indicated that they understood and would not want her to be transferred regardless. ED physician spoke with the stroke team at [facility] who did not feel that she needed to be transferred to a tertiary care facility as no intervention would be undertaken. They recommend typical stroke workup including brain MR, echocardiogram, and lipid panel. Review of Systems Review of Systems: 12 systems were reviewed and are negative except for as per HPI. [facility] Past Medical History Medical History Anal fissure Anemia Ankylosing spondylitis of multiple sites in spine Anxiety B12 deficiency Bronchitis Chronic pain Depression Diverticulitis Emphysema of lung Fatty liver Gastro-esophageal reflux disease without esophagitis History of basal cell carcinoma (BCC) Hypertension Macular degeneration Mixed hyperlipidemia Obstructive sleep apnea Osteoporosis Peripheral neuropathy Psoriasis Seizures (1973) Seronegative rheumatoid arthritis of multiple sites patient of Dr. Shahriar Nixon Sleep apnea in adult does not use CPAP Tobacco abuse Type 2 diabetes mellitus Surgical History Surgical History History of appendectomy History of benign breast biopsy History of carpal tunnel release History of cataract extraction with lens replacement History of section History of colonoscopy History of dilatation and curettage History of lumbar laminectomy History of sinus surgery History of tubal ligation Status post anal fissurectomy Family History Family History Mother Hypertension, Onset Age: 97 Father Family history of malignant neoplasm F
[2024-06-30 16:53] LABS: HDL Direct 44 mg/dL; Triglycerides 467 mg/dL (<150)
[2024-06-30 17:02] LABS: LDL Cholesterol Direct 206 mg/dL
[2024-06-30 17:03] LABS: Cholesterol 378 mg/dL (0-200)
--- NOTE | 2024-06-30 18:03 | PC.NURSE ---
called dietary and requested dinner tray be sent to pt room as requested
--- NOTE | 2024-06-30 18:36 | ADMGEN ---
This patient, Blanca Nam, was admitted to Medical Room 250-01. Patient/family oriented to hospital policies and general routines including ID bracelet, bed and alarms, visiting hours, pain management, procedures, bathroom and other care routines, personal items, smoking policy, room service/diet, and visiting hours. Information on how to activate the Rapid Response Team has been discussed. Patient/Family are encouraged to report perceived risks to care and to ask questions if they do not understand what they are told or what they should do.
[2024-06-30 20:38] LABS: Glucose Point of Care 197 mg/dl (65-105)
[2024-06-30 20:53] LABS: Hemoglobin A1C 9.3 % (<5.7)
[2024-06-30] MEDS: traMADol HCL (*CRX) 50 MG TABLET PO (23:00)
[2024-06-30] MEDS: lamoTRIgine 25 MG TABLET 75 MG PO (23:00)
[2024-07-01] VITALS (10 sets, daily range): BP systolic 157–171; BP diastolic 61–79; PULSE 69–96; RESP 18–20; TEMP 36.2–36.7; O2SAT 93–95
--- NOTE | 2024-07-01 | ECHO_ITS ---
Patient Info Name: Blanca Nam Age: 78 years : 1945 Gender: Female Ht: 61 in Wt: 178 lbs BSA: 1.90 m2 HR: 77 bpm BP: 171 / 61 mmHg Technical Quality: Fair Exam Date: 07/01/2024 10:13 AM Exam Location: Echo Lab Patient Status: Inpatient Admit Date: 06/30/2024 Staff Ordering Physician: Jorge Mendoza MD Pile Driving Superintendent: Martina St RDCS Attending Provider: Geo Menard MD Exam Type: CA echo doppler w bubble study Study Info Indications G45.9 - Transient cerebral ischemic attack, unspecified Complete two-dimensional, color flow and Doppler transthoracic echocardiogram is performed with agitated saline. Contrast/Agitated Saline Contrast/Ag. Saline: Agitated Saline Amount: 21.00 ml Existing IV Access: Yes IV Access Condition: patent with no signs of infiltration Summary 1. Left ventricular chamber dimension is normal. 2. Left ventricular systolic function is normal, estimated at 55-60%. 3. There is mildly increased left ventricular wall thickness. 4. The left ventricular diastolic function is grade I diastolic dysfunction. 5. Right ventricular systolic function is normal. 6. Positive bubble study with a right to left shunt. Suspected patent foramen ovale visualized by agitated saline imaging. 7. No significant valvular disease. Left Ventricle Left ventricular chamber dimension is normal. Left ventricular systolic function is normal, estimated at 55-60%. There is mildly increased left ventricular wall thickness. The left ventricular diastolic function is grade I diastolic dysfunction. Right Ventricle Right ventricular chamber dimension is normal. Right ventricular systolic function is normal. Left Atria Left atrial chamber dimension is normal. Right Atria Right atrial chamber dimension is normal. Atrial Septum Positive bubble study with a right to left shunt. Suspected patent foramen ovale visualized by agitated saline imaging. Aortic Valve The aortic valve is not well visualized. There is no aortic valve stenosis. There is trace aortic valve regurgitation. Pulmonic Valve The pulmonic valve is not well visualized. Mitral Valve There is trace mitral valve regurgitation. Tricuspid Valve There is trace tricuspid valve regurgitation. Pericardium/Pleural The pericardium appears epicardial fat pad. There is no pericardial effusion. Inferior Vena Cava Normal inferior vena cava with >50% collapse upon inspiration consistent with normal right atrial pressure, 3 mmHg. Aorta The aortic root size at the sinus of Valsalva is normal. Left Ventricular Outflow Tract Name Value Normal LVOT 2D LVOT Diameter 2.1 cm LVOT Doppler LVOT Peak Gradient 4 mmHg LVOT Mean Gradient 2 mmHg LVOT VTI 19 cm LVOT VTI/AV VTI Ratio 1.1 LVOT Stroke Volume 64 ml LVOT CO 4.2 l/min LVOT CI 2.2 l/min/m2 Pulmonic Valve Name Value Norm
[2024-07-01] MEDS: diphenhydrAMINE HCl CAP 25 MG CAPSULE 50 MG PO ×2 (00:19→20:34)
[2024-07-01 05:15] LABS: Basophils Percent Auto 0.4 % (0.2-1.2); Eosinophils Absolute Auto 0.1 K/mm3 (0-0.3); Eosinophils Percent Auto 1.2 % (0-4.4); Hematocrit 34.1 % (37.0-47.0); Hemoglobin 10.7 g/dL (12.0-15.0); Immature Granulocyte Absolute 0.04 K/mm3 (0.00-0.031); Immature Granulocyte Percent A 0.5 % (0-0.5); Lymphocytes Absolute Auto 1.93 K/mm3 (0.9-3.2); Lymphocytes Percent Auto 24.9 % (18.3-44.2); Mean Corpuscular HGB Conc 31.4 g/dl (32-36); Mean Corpuscular Hemoglobin 27.9 pg (26-34); Mean Corpuscular Volume 88.8 fl (80-100); Mean Platelet Volume 10.3 fl (7.4-10.4); Monocytes Absolute Auto 0.7 K/mm3 (0.1-0.6); Platelet Count Result 252 k/mm3 (150-375); Red Blood Count 3.84 M/mm3 (4.2-5.4); White Blood Count 7.7 K/mm3 (4.5-10.0)
[2024-07-01 05:30] LABS: Anion Gap 1 mmol/L (4-12); Blood Urea Nitrogen 5 mg/dL (7-17); Calcium 8.6 mg/dL (8.4-10.2); Carbon Dioxide 33 mmol/L (22-30); Chloride 100 mmol/L (98-107); Cholesterol 321 mg/dL (0-200); Estimated CRCL calculation 75 ml/min; Estimated Glomerular Filt Rate > 60; Glucose 159 mg/dL (65-110); HDL Direct 36 mg/dL; Magnesium 1.9 mg/dL (1.6-2.3); Potassium 3.5 mmol/L (3.4-5.0); Sodium 134 mmol/L (137-145); Triglycerides 387 mg/dL (<150)
[2024-07-01 05:41] LABS: LDL Cholesterol Direct 166 mg/dL
[2024-07-01 07:39] LABS: Glucose Point of Care 166 mg/dl (65-105)
--- NOTE | 2024-07-01 07:39 | PM.IMPN ---
Progress Note: A&P Assessment and Plan (1) Cerebrovascular accident: Code(s): I63.9 - Cerebral infarction, unspecified Status: Acute Assessment and Plan: MRI brain Acute to subacute right cerebellar infarct, which correlates with the hypodense area seen on CT scan from 06/30/2024. ECHO with bubble study Left ventricular systolic function is normal, estimated at 55-60%, left ventricular diastolic function is grade I diastolic dysfunction Positive bubble study with a right to left shunt. Suspected patent foramen ovale visualized by agitated saline imaging. Bilateral venous Dopplers pending 81 mg Aspirin and Plavix (2) Frequent falls: Code(s): R29.6 - Repeated falls Status: Acute Assessment and Plan: PT and OT Eval and treat (3) Hypertension: Qualifiers: Hypertension type: essential hypertension Qualified Code(s): I10 - Essential (primary) hypertension Code(s): I10 - Essential (primary) hypertension Status: Acute Assessment and Plan: Restart home antihypertensives (4) Mixed hyperlipidemia: Code(s): E78.2 - Mixed hyperlipidemia Status: Acute Assessment and Plan: Restart home statin (5) Type 2 diabetes mellitus: Code(s): E11.9 - Type 2 diabetes mellitus without complications Status: Acute Assessment and Plan: Diabetic Diet AC/HS SSI A1C 9.3 Consulted desktop manager (6) Chronic pain: Code(s): G89.29 - Other chronic pain Status: Acute Assessment and Plan: Soon home tramadol On gabapentin and Lyrica at home Plan The patient presented to the emergency department for evaluation of 4 falls in the day or so as detailed in HPI. Labs, imaging, EKG, and all reports were personally reviewed. Brain CT shows evidence of a subacute infarction the medial right cerebellar hemisphere which may very well have precipitated her falls. ED physician discussed with the patient and her that there is no neurology coverage this week and they did not wish to be transferred. Stroke neurology at [facility] [place] did not feel that she needed transfer to tertiary care as there was no findings of severe stenosis or large vessel occlusion on CTA. They did recommend usual stroke workup with follow-up in several weeks. Etiology of the stroke is not entirely clear although likely due to small-vessel disease; she has several risk factors including significant smoking history, hypertension, hyperlipidemia, diabetes, and untreated sleep apnea. NIHSS is less than 5 and she really does not have significant deficits on exam. Dual anti-platelet therapy is recommended for 21 days followed by single agent antiplatelet therapy. She will likely need to be started on a high-intensity statin; lipid panel is pending. Brain MRI and surface echocardiogram ordered. Continue neurologic checks q.4 hours. Initiate fall precautions. PT/OT consulted. Blood pressures are running high and will be monitored closely. Dosing adjustments of her antihypertensives depending on how she trends. Initiate sliding scale insulin, Accu-Cheks, and hypoglycemic protocol. Check hemoglobin A1c. Smoking cessation is imperative. She declines the need for nicotine patch. Her home medications will be reviewed and resumed as appropriate. Findings and treatment plan were discussed with the patient. Questions were solicited and answered to satisfaction. The patient's medical management will be taken over by the hospitalist team in a.m. Patient has had acute stroke on MRI of the brain and a positive bubble study. Venous Dopplers of bilateral lower extremities were ordered Time Spent With Patient Time with patient: Greater than 35 minutes Subjective Date/time seen: 07/01/24 07:39 Interval history: 78-year-old female smoker with multiple medical problems including rheumatoid arthritis, ankylosing spondylitis, chronic pain, diet-controlled type 2 diabetes mellitus, hyperte
[2024-07-01] MEDS: CLOPIDOGREL BISULFATE 75 MG TABLET PO (08:20)
[2024-07-01] MEDS: ASPIRIN 81 MG ENTERIC TABLET PO (08:20)
[2024-07-01] MEDS: ACETAMINOPHEN 500 MG TABLET PO ×2 (08:20→17:35)
[2024-07-01] MEDS: DOCUSATE SODIUM 100 MG CAPSULE PO ×2 (08:21→17:35)
[2024-07-01] MEDS: ENOXAPARIN 40 MG/0.4 ML SYRINGE SUB-Q (08:21)
[2024-07-01] MEDS: DULoxetine HCL 60 MG CAPSULE.DR 120 MG PO (08:21)
[2024-07-01] MEDS: GABAPENTIN 300 MG CAPSULE PO ×2 (08:21→17:35)
[2024-07-01] MEDS: lamoTRIgine 25 MG TABLET 75 MG PO ×2 (08:22→20:35)
[2024-07-01] MEDS: hydrOXYzine HCL 25 MG TABLET PO (08:22)
[2024-07-01] MEDS: METOPROLOL SUCCINATE EXT REL 50 MG TABCR PO (08:23)
[2024-07-01] MEDS: OPTI-GEN TAB 2 TABLET PO (08:23)
[2024-07-01] MEDS: PRIMIDONE 50 MG TABLET PO (08:23)
[2024-07-01] MEDS: LOSARTAN POTASSIUM 100 MG TABLET PO (08:23)
[2024-07-01] MEDS: PANTOPRAZOLE 40 MG TABLET PO (08:23)
[2024-07-01] MEDS: traMADol HCL (*CRX) 50 MG TABLET PO ×2 (08:26→20:34)
[2024-07-01 11:22] LABS: Glucose Point of Care 182 mg/dl (65-105)
[2024-07-01 17:16] LABS: Glucose Point of Care 154 mg/dl (65-105)
[2024-07-01] MEDS: traZODone HCL 50 MG TABLET 100 MG PO (20:35)
[2024-07-01] MEDS: amLODIPine BESYLATE 10 MG TABLET PO (20:35)
[2024-07-01 21:57] LABS: Glucose Point of Care 177 mg/dl (65-105)
[2024-07-02] VITALS (10 sets, daily range): BP systolic 133–167; BP diastolic 51–61; PULSE 66–77; RESP 16–18; TEMP 36.6–36.9; O2SAT 91–93
--- NOTE | 2024-07-02 07:19 | PM.IMPN ---
Progress Note: A&P Assessment and Plan (1) Cerebrovascular accident: Code(s): I63.9 - Cerebral infarction, unspecified Status: Acute Assessment and Plan: MRI brain Acute to subacute right cerebellar infarct, which correlates with the hypodense area seen on CT scan from 06/30/2024. ECHO with bubble study Left ventricular systolic function is normal, estimated at 55-60%, left ventricular diastolic function is grade I diastolic dysfunction Positive bubble study with a right to left shunt. Suspected patent foramen ovale visualized by agitated saline imaging. Bilateral venous Dopplers pending 81 mg Aspirin and Plavix Dual anti-platelet therapy is recommended for 21 days followed by single agent antiplatelet therapy. She will need to be started on a high-intensity statin; triglyceride 387, cholesterol 321, LDL direct 166 (2) Frequent falls: Code(s): R29.6 - Repeated falls Status: Acute Assessment and Plan: PT and OT Eval and treat (3) Hypertension: Qualifiers: Hypertension type: essential hypertension Qualified Code(s): I10 - Essential (primary) hypertension Code(s): I10 - Essential (primary) hypertension Status: Acute Assessment and Plan: Restart home antihypertensives (4) Mixed hyperlipidemia: Code(s): E78.2 - Mixed hyperlipidemia Status: Acute Assessment and Plan: Started on Atorvastatin Recommend repeating lipid panel in 3 months (5) Type 2 diabetes mellitus: Code(s): E11.9 - Type 2 diabetes mellitus without complications Status: Acute Assessment and Plan: Diabetic Diet AC/HS SSI A1C 9.3 Consulted clinical trial educator Blood sugars running from 150-170 (6) Chronic pain: Code(s): G89.29 - Other chronic pain Status: Acute Assessment and Plan: Start home tramadol On gabapentin and Lyrica at home Plan The patient presented to the emergency department for evaluation of 4 falls in the day or so as detailed in HPI. Labs, imaging, EKG, and all reports were personally reviewed. Brain CT shows evidence of a subacute infarction the medial right cerebellar hemisphere which may very well have precipitated her falls. ED physician discussed with the patient and her that there is no neurology coverage this week and they did not wish to be transferred. Stroke neurology at [facility] did not feel that she needed transfer to tertiary care as there was no findings of severe stenosis or large vessel occlusion on CTA. They did recommend usual stroke workup with follow-up in several weeks. Etiology of the stroke is not entirely clear although likely due to small-vessel disease; she has several risk factors including significant smoking history, hypertension, hyperlipidemia, diabetes, and untreated sleep apnea. NIHSS is less than 5 and she really does not have significant deficits on exam. Dual anti-platelet therapy is recommended for 21 days followed by single agent antiplatelet therapy. She will likely need to be started on a high-intensity statin; lipid panel is pending. Brain MRI and surface echocardiogram ordered. Continue neurologic checks q.4 hours. Initiate fall precautions. PT/OT consulted. Blood pressures are running high and will be monitored closely. Dosing adjustments of her antihypertensives depending on how she trends. Initiate sliding scale insulin, Accu-Cheks, and hypoglycemic protocol. Check hemoglobin A1c. Smoking cessation is imperative. She declines the need for nicotine patch. Her home medications will be reviewed and resumed as appropriate. Findings and treatment plan were discussed with the patient. Questions were solicited and answered to satisfaction. The patient's medical management will be taken over by the hospitalist team in a.m. Patient has had acute stroke on MRI of the brain and a positive bubble study. Venous Dopplers of bilateral lower extremities negative for DVT. Dual anti-plat
[2024-07-02 08:09] LABS: Glucose Point of Care 171 mg/dl (65-105)
[2024-07-02] MEDS: CLOPIDOGREL BISULFATE 75 MG TABLET PO (09:10)
[2024-07-02] MEDS: ACETAMINOPHEN 500 MG TABLET PO ×2 (09:10→17:03)
[2024-07-02] MEDS: DULoxetine HCL 60 MG CAPSULE.DR 120 MG PO (09:10)
[2024-07-02] MEDS: ENOXAPARIN 40 MG/0.4 ML SYRINGE SUB-Q (09:10)
[2024-07-02] MEDS: DOCUSATE SODIUM 100 MG CAPSULE PO ×2 (09:10→17:03)
[2024-07-02] MEDS: ASPIRIN 81 MG ENTERIC TABLET PO (09:10)
[2024-07-02] MEDS: GABAPENTIN 300 MG CAPSULE PO ×2 (09:11→17:03)
[2024-07-02] MEDS: hydrOXYzine HCL 25 MG TABLET PO (09:11)
[2024-07-02] MEDS: LOSARTAN POTASSIUM 100 MG TABLET PO (09:11)
[2024-07-02] MEDS: lamoTRIgine 25 MG TABLET 75 MG PO ×2 (09:11→21:00)
[2024-07-02] MEDS: OPTI-GEN TAB 2 TABLET PO (09:12)
[2024-07-02] MEDS: METOPROLOL SUCCINATE EXT REL 50 MG TABCR PO (09:12)
[2024-07-02] MEDS: LORazepam (*CRX) 0.5 MG TABLET PO (09:12)
[2024-07-02] MEDS: PRIMIDONE 50 MG TABLET PO (09:12)
[2024-07-02] MEDS: PANTOPRAZOLE 40 MG TABLET PO (09:12)
[2024-07-02 11:57] LABS: Glucose Point of Care 153 mg/dl (65-105)
[2024-07-02 16:51] LABS: Glucose Point of Care 215 mg/dl (65-105)
[2024-07-02] MEDS: INSULIN ASPART (*BKC) 100 UNITS/ML SUB-Q (17:03)
[2024-07-02] MEDS: traMADol HCL (*CRX) 50 MG TABLET PO (20:59)
[2024-07-02] MEDS: diphenhydrAMINE HCl CAP 25 MG CAPSULE 50 MG PO (20:59)
[2024-07-02] MEDS: amLODIPine BESYLATE 10 MG TABLET PO (21:00)
[2024-07-02] MEDS: traZODone HCL 50 MG TABLET 100 MG PO (21:00)
[2024-07-02 21:19] LABS: Glucose Point of Care 166 mg/dl (65-105)
[2024-07-02] MEDS: FLUTICASONE PROPIONATE 0.05% NA SPR 16 GM BTL (*BKC) 1 SPRAY NASAL (22:28)
[2024-07-03] VITALS: PULSE 73
[2024-07-03 04:00] VITALS: PULSE 71
[2024-07-03 04:31] VITALS: BP 151/54; PULSE 72; RESP 20; TEMP 36.5; O2SAT 92
--- NOTE | 2024-07-03 07:44 | PM.IMPN ---
Progress Note: A&P Assessment and Plan (1) Cerebrovascular accident: Code(s): I63.9 - Cerebral infarction, unspecified Status: Acute Assessment and Plan: MRI brain Acute to subacute right cerebellar infarct, which correlates with the hypodense area seen on CT scan from 06/30/2024. ECHO with bubble study Left ventricular systolic function is normal, estimated at 55-60%, left ventricular diastolic function is grade I diastolic dysfunction Positive bubble study with a right to left shunt. Suspected patent foramen ovale visualized by agitated saline imaging. Bilateral venous Dopplers pending 81 mg Aspirin and Plavix Dual anti-platelet therapy is recommended for 21 days followed by single agent antiplatelet therapy. She will need to be started on a high-intensity statin; triglyceride 387, cholesterol 321, LDL direct 166 (2) Frequent falls: Code(s): R29.6 - Repeated falls Status: Acute Assessment and Plan: PT and OT Eval and treat (3) Hypertension: Qualifiers: Hypertension type: essential hypertension Qualified Code(s): I10 - Essential (primary) hypertension Code(s): I10 - Essential (primary) hypertension Status: Acute Assessment and Plan: Restart home antihypertensives (4) Mixed hyperlipidemia: Code(s): E78.2 - Mixed hyperlipidemia Status: Acute Assessment and Plan: Started on Atorvastatin Recommend repeating lipid panel in 3 months (5) Type 2 diabetes mellitus: Code(s): E11.9 - Type 2 diabetes mellitus without complications Status: Acute Assessment and Plan: Diabetic Diet AC/HS SSI A1C 9.3 Consulted family educator Blood sugars running from 150-170 (6) Chronic pain: Code(s): G89.29 - Other chronic pain Status: Acute Assessment and Plan: Start home tramadol On gabapentin and Lyrica at home Right hip and femur x ray negative for fracture Plan The patient presented to the emergency department for evaluation of 4 falls in the day or so as detailed in HPI. Labs, imaging, EKG, and all reports were personally reviewed. Brain CT shows evidence of a subacute infarction the medial right cerebellar hemisphere which may very well have precipitated her falls. ED physician discussed with the patient and her that there is no neurology coverage this week and they did not wish to be transferred. Stroke neurology at [place] did not feel that she needed transfer to tertiary care as there was no findings of severe stenosis or large vessel occlusion on CTA. They did recommend usual stroke workup with follow-up in several weeks. Etiology of the stroke is not entirely clear although likely due to small-vessel disease; she has several risk factors including significant smoking history, hypertension, hyperlipidemia, diabetes, and untreated sleep apnea. NIHSS is less than 5 and she really does not have significant deficits on exam. Dual anti-platelet therapy is recommended for 21 days followed by single agent antiplatelet therapy. She will likely need to be started on a high-intensity statin; lipid panel is pending. Brain MRI and surface echocardiogram ordered. Continue neurologic checks q.4 hours. Initiate fall precautions. PT/OT consulted. Blood pressures are running high and will be monitored closely. Dosing adjustments of her antihypertensives depending on how she trends. Initiate sliding scale insulin, Accu-Cheks, and hypoglycemic protocol. Check hemoglobin A1c. Smoking cessation is imperative. She declines the need for nicotine patch. Her home medications will be reviewed and resumed as appropriate. Findings and treatment plan were discussed with the patient. Questions were solicited and answered to satisfaction. The patient's medical management will be taken over by the hospitalist team in a.m. Patient has had acute stroke on MRI of the brain and a positive bubble study. Venous Dopplers of bilateral lo
[2024-07-03 08:07] LABS: Glucose Point of Care 146 mg/dl (65-105)
[2024-07-03] MEDS: DOCUSATE SODIUM 100 MG CAPSULE PO (09:06)
[2024-07-03] MEDS: ATORVASTATIN 40 MG TABLET PO (09:06)
[2024-07-03] MEDS: CLOPIDOGREL BISULFATE 75 MG TABLET PO (09:06)
[2024-07-03] MEDS: DULoxetine HCL 60 MG CAPSULE.DR 120 MG PO (09:06)
[2024-07-03] MEDS: ACETAMINOPHEN 500 MG TABLET PO (09:06)
[2024-07-03] MEDS: GABAPENTIN 300 MG CAPSULE PO (09:07)
[2024-07-03] MEDS: hydrOXYzine HCL 25 MG TABLET PO (09:07)
[2024-07-03] MEDS: FLUTICASONE PROPIONATE 0.05% NA SPR 16 GM BTL (*BKC) 1 SPRAY NASAL (09:07)
[2024-07-03] MEDS: lamoTRIgine 25 MG TABLET 75 MG PO (09:07)
[2024-07-03 09:08] VITALS: PULSE 78
[2024-07-03] MEDS: PRIMIDONE 50 MG TABLET PO (09:08)
[2024-07-03] MEDS: LOSARTAN POTASSIUM 100 MG TABLET PO (09:08)
[2024-07-03] MEDS: METOPROLOL SUCCINATE EXT REL 50 MG TABCR PO (09:08)
[2024-07-03] MEDS: OPTI-GEN TAB 2 TABLET PO (09:08)
[2024-07-03] MEDS: PANTOPRAZOLE 40 MG TABLET PO (09:08)
[2024-07-03] MEDS: ENOXAPARIN 40 MG/0.4 ML SYRINGE SUB-Q (09:09)
[2024-07-03] MEDS: ASPIRIN 81 MG ENTERIC TABLET PO (09:16)
[2024-07-03 09:30] VITALS: PULSE 76; O2SAT 96
[2024-07-03 11:37] LABS: Glucose Point of Care 174 mg/dl (65-105)
[2024-07-03 12:00] VITALS: PULSE 75
--- NOTE | 2024-07-03 12:41 | PM.DS ---
DS: Admitting Diagnosis Discharge Date 07/03/2024 Admitting Diagnosis Ischemic Stroke DS: Discharge Diagnosis Discharge Diagnosis (1) Cerebrovascular accident: Code(s): I63.9 - Cerebral infarction, unspecified Status: Acute Assessment and Plan: MRI brain Acute to subacute right cerebellar infarct, which correlates with the hypodense area seen on CT scan from 06/30/2024. ECHO with bubble study Left ventricular systolic function is normal, estimated at 55-60%, left ventricular diastolic function is grade I diastolic dysfunction Positive bubble study with a right to left shunt. Suspected patent foramen ovale visualized by agitated saline imaging. Bilateral venous Dopplers pending 81 mg Aspirin and Plavix Dual anti-platelet therapy is recommended for 21 days followed by single agent antiplatelet therapy. Started on high-intensity statin; triglyceride 387, cholesterol 321, LDL direct 166 (2) Frequent falls: Code(s): R29.6 - Repeated falls Status: Acute Assessment and Plan: PT and OT Eval and treat Recommendations for acute rehab (3) Hypertension: Qualifiers: Hypertension type: essential hypertension Qualified Code(s): I10 - Essential (primary) hypertension Code(s): I10 - Essential (primary) hypertension Status: Acute Assessment and Plan: Restart home antihypertensives (4) Mixed hyperlipidemia: Code(s): E78.2 - Mixed hyperlipidemia Status: Acute Assessment and Plan: Started on Atorvastatin Recommend repeating lipid panel in 3 months (5) Type 2 diabetes mellitus: Code(s): E11.9 - Type 2 diabetes mellitus without complications Status: Acute Assessment and Plan: Diabetic Diet AC/HS SSI A1C 9.3 Consulted informatics educator Blood sugars running from 150-170 (6) Chronic pain: Code(s): G89.29 - Other chronic pain Status: Acute Assessment and Plan: Start home tramadol On gabapentin and Lyrica at home Right hip and femur x ray negative for fracture Plan The patient presented to the emergency department for evaluation of 4 falls in the day or so as detailed in HPI. Labs, imaging, EKG, and all reports were personally reviewed. Brain CT shows evidence of a subacute infarction the medial right cerebellar hemisphere which may very well have precipitated her falls. ED physician discussed with the patient and her that there is no neurology coverage this week and they did not wish to be transferred. Stroke neurology at [place] did not feel that she needed transfer to tertiary care as there was no findings of severe stenosis or large vessel occlusion on CTA. They did recommend usual stroke workup with follow-up in several weeks. Etiology of the stroke is not entirely clear although likely due to small-vessel disease; she has several risk factors including significant smoking history, hypertension, hyperlipidemia, diabetes, and untreated sleep apnea. NIHSS is less than 5 and she really does not have significant deficits on exam. Dual anti-platelet therapy is recommended for 21 days followed by single agent antiplatelet therapy. She will likely need to be started on a high-intensity statin; lipid panel is pending. Brain MRI and surface echocardiogram ordered. Continue neurologic checks q.4 hours. Initiate fall precautions. PT/OT consulted. Blood pressures are running high and will be monitored closely. Dosing adjustments of her antihypertensives depending on how she trends. Initiate sliding scale insulin, Accu-Cheks, and hypoglycemic protocol. Check hemoglobin A1c. Smoking cessation is imperative. She declines the need for nicotine patch. Her home medications will be reviewed and resumed as appropriate. Findings and treatment plan were discussed with the patient. Questions were solicited and answered to satisfaction. The patient's medical management will be taken over by the hospitalist team
== END 2024-07-03 14:20 | DRG 66 ==
LOC: ANHED 16:58 → ANH3MEDSUR 17:24 → ANH2MED 18:00
PROVIDERS: Physician Assistant; Admitting Provider Internal Medicine; Emergency Provider Family Medicine; PCP Emergency Medicine; Visit Provider Nurse Practitioner Gerontology
DX: I63.9 Cerebral infarction, unspecified (principal); I10 Essential (primary) hypertension; J44.9 Chronic obstructive pulmonary disease, unspecified; E53.8 Deficiency of other specified B group vitamins; E11.42 Type 2 diabetes mellitus with diabetic polyneuropathy; E78.2 Mixed hyperlipidemia; K76.0 Fatty (change of) liver, not elsewhere classified; K57.30 Diverticulosis of large intestine without perforation or abscess without bleeding; K21.9 Gastro-esophageal reflux disease without esophagitis; L40.9 Psoriasis, unspecified; M05.879 Other rheumatoid arthritis with rheumatoid factor of unspecified ankle and foot; M16.11 Unilateral primary osteoarthritis, right hip; M17.12 Unilateral primary osteoarthritis, left knee; M45.9 Ankylosing spondylitis of unspecified sites in spine; G35 Multiple sclerosis; G47.33 Obstructive sleep apnea (adult) (pediatric); R29.6 Repeated falls; H35.30 Unspecified macular degeneration; F32.A Depression, unspecified; F41.9 Anxiety disorder, unspecified; Z99.3 Dependence on wheelchair; Z79.82 Long term (current) use of aspirin; Z87.891 Personal history of nicotine dependence
CPT/HCPCS: 36415; 70450; 70496; 70498; 70553; 72125; 72131; 73502; 73521; 73552; 73610; 80048; 80053; 80061; 81003; 82948; 83036; 83735; 85025; 93005; 93306; 93970; 96361; 96374; 96375; 97110; 97161; 97165; 97530; 97535; 99284; 99285; A9270; A9577; J1650; J1815; J2270; J2405; J7030; Q9967

== ENCOUNTER 2024-07-03 15:59 | Emergency (ER) | payer MEDICARE, OTHER, SELFPAY ==
--- NOTE | ~2024-07-03 | CT_ITS ---
CT brain wo con, CT cervical spine wo con Ordering provider: Miguelina Alberto PA-C History: 78 years Female with . fall . Comparison: June 30, 2024 Technique: CT of the head without contrast. FINDINGS: BRAIN PARENCHYMA AND CSF SPACES: Hypodensity seen in the right cerebellar hemisphere suggestive of tejada bacute intraparenchymal infarct unchanged from previous examination which. Mild leukoaraiosis and dif fuse cortical atrophy. Mild atheromatous disease. No midline shift, mass effect or hemorrhage. The b rain parenchyma and CSF spaces are otherwise normal. VISUALIZED PARANASAL SINUSES: Well aerated. MASTOIDS: Well aerated. BONES: The bones appear intact. SOFT TISSUES: Visualized nasopharynx is normal. Superficial soft tissues are normal. IMPRESSION: Subacute infarct unchanged from previous examination the right cerebellar area. Other appearances are also unchanged. CT brain wo con, CT cervical spine wo con Ordering provider: Miguelina Alberto PA-C History: . fall . Comparison: None. Technique: CT of the cervical spine was performed without contrast. Sagittal and coronal reformatted images were also obtained and reviewed. Automated exposure control and iterative reconstruction terrance hnique were employed. The dose-length product was 605.33 (accession [id number]), 452.85 (accessio n [id number]) mGy-cm. FINDINGS: VERTEBRAE: No subluxation or acute fracture. The occipital condyles are intact. Degenerative changes of the spine. DISC SPACES: Narrowing of the disc C5-C6 and C6-C7. Multilevel facet joint disease multilevel uncover tebral joint osteoarthritic changes. Multilevel narrowing of the intervertebral foramina. PARASPINOUS SOFT TISSUES: Bilateral carotid calcifications. IMPRESSION: No acute osseous abnormality cervical spine. Reviewed, dictated and finalized at location A. IMPRESSION: Subacute infarct unchanged from previous examination the right cerebellar area. Other appearances are also unchanged. CT brain wo con, CT cervical spine wo con Ordering provider: Miguelina Alberto PA-C History: . fall . Comparison: None. Technique: CT of the cervical spine was performed without contrast. Sagittal a nd coronal reformatted images were also obtained and reviewed. Automated expos ure control and iterative reconstruction technique were employed. The dose-roberto th product was 605.33 (accession [id number]), 452.85 (accession [id number] [facility]) mGy-cm. FINDINGS: VERTEBRAE: No subluxation or acute fracture. The occipital condyles are intact. Degenerative changes of the spine. DISC SPACES: Narrowing of the disc C5-C6 and C6-C7. Multilevel facet joint dise ase multilevel uncovertebral joint osteoarthritic changes. Multilevel narrowing of the intervertebral foramina. PARASPINOUS SOFT TISSUES: Bilateral carotid calcifications. IMPRESSION: No acute osseous abnormality cervical spine. IMPRESSION: Subacute infarct unchanged from previous examination the right cerebellar area. Other appearances are also unchanged. CT brain wo con, CT cervical spine wo con Ordering provider: Miguelina Alberto PA-C History: . fall . Comparison: None. Technique: CT of the cervical spine was performed without contrast. Sagittal a nd coronal reformatted images were also obtained and reviewed. Automated expos ure control and iterative reconstruction technique were employed. The dose-roberto th product was 605.33 (accession [id number]), 452.85 (accession
--- NOTE | ~2024-07-03 | XR_ITS ---
XR hip BI 2V w AP pelvis Ordering provider: Miguelina Alberto History: . fall . Comparison: None. FINDINGS: BONES: No acute fracture or dislocation. HIP JOINT SPACES: Bilateral moderate to severe osteoarthritic changes. SACROILIAC JOINT SPACES/LUMBAR SPINE: The sacroiliac joint spaces shows sacroiliacs.. Mild degenerati ve changes of the visualized lower lumbar spine. PUBIC SYMPHYSIS: Normal. SOFT TISSUES: Normal. IMPRESSION: No acute osseous abnormality of the bilateral hips and pelvis. Reviewed, dictated and finalized at location A.
--- NOTE | ~2024-07-03 | XR_ITS ---
XR ankle LT min 3V Ordering provider: Alecia Ballard MD History: . fall; R ankle pain . Comparison: None. FINDINGS: BONES: No acute fracture or dislocation. JOINT SPACES: The ankle mortise is normal. SOFT TISSUES: Normal. IMPRESSION: No acute osseous abnormality left ankle. Reviewed, dictated and finalized at location A.
--- NOTE | ~2024-07-03 | CT_ITS ---
CT lumbar spine wo con Ordering provider: Miguelina Alberto PA-C History: 78 years Female with . fall, lbp, hx compression fx . Comparison: None. Technique: CT lumbar spine without contrast. Automated exposure control and iterative reconstruction technique were employed. The dose-length product was 951.47 mGy-cm. FINDINGS: VERTEBRAE: Dextroscoliosis. Loss of height is seen in L1 most likely chronic compression. Otherwise, Normal height and alignment. No subluxation or visible acute fracture. Sclerotic changes seen in the L3 and L4 most likely degenerative. Degenerative changes of the spine. DISC SPACES: Narrowing of the disc L2-L3, L3-L4, L4-L5 and L5-S1. Multilevel facet joint disease in t he lower lumbar area. T12-L1: No stenosis. L1-L2: No stenosis. L2-L3: No stenosis. L3-L4: No stenosis. L4-L5: No stenosis. L5-S1: No stenosis. PARASPINOUS SOFT TISSUES: Mild atheromatous disease of the abdominal aorta. IMPRESSION: Old compression fracture of L1.If still suspicious is MRI is advised. Multilevel degenerative disc and facet joint disease. Reviewed, dictated and finalized at location A.
[2024-07-03 15:51] VITALS: BP 166/64; PULSE 67; RESP 14; TEMP 36.6; O2SAT 94
--- NOTE | 2024-07-03 17:43 | ED.FALL ---
HPI - Fall General Chief Complaint: Fall Stated Complaint: fall Time Seen by Provider: 07/03/24 16:43 Source: patient Mode of arrival: EMS Limitations: no limitations History of Present Illness HPI Narrative: Patient is a 78-year-old female who presents the ED via EMS with report of a fall. Patient has history of recent CVA and was on her way to [facility] today when she tripped and fell trying to get in to the ambulance. Landed on her right side. Did hit her head. Denied LOC. she is on aspirin and Plavix. Sent here for further evaluation. Patient reports pain throughout her lower back, left ankle, right hip. Denies neck pain. Denies chest pain, shortness breath, abdominal pain, dizziness. Related Data Home Medications Medication Instructions Recorded Confirmed acetaminophen 500 mg tablet 500 mg PO BID 10/10/23 07/06/24 aspirin 81 mg tablet,delayed 81 mg PO DAILY 10/10/23 07/06/24 release diphenhydramine HCl 25 mg capsule 50 mg PO HS PRN Insomnia 10/10/23 07/06/24 (Benadryl) lamotrigine 25 mg tablet 75 mg PO Q12H 10/10/23 07/06/24 metoprolol succinate 50 mg 50 mg PO QAM 10/10/23 07/06/24 tablet,extended release 24 hr primidone 50 mg tablet 50 mg PO QAM 10/10/23 07/06/24 docusate sodium 100 mg capsule 100 mg PO BID 06/30/24 07/06/24 pantoprazole 40 mg tablet,delayed 40 mg PO QAM 06/30/24 07/06/24 release pregabalin 50 mg capsule 50 mg PO TID PRN neuropathy 06/30/24 07/06/24 tramadol 50 mg tablet 50 mg PO Q6H PRN pain 06/30/24 07/06/24 vit C 250 mg-vit E 90 mg-zinc 40 2 cap PO DAILY 06/30/24 07/06/24 mg-copper 1 [id number] capsule (PreserVision AREDS-2) Allergies Allergy/AdvReac Type Severity Reaction Status Date / Time cephalexin Allergy Severe Anaphylaxis Verified 06/30/24 11:56 Review of Systems Review of Systems: All systems reviewed & are unremarkable except as noted in HPI. All systems reviewed & are unremarkable except as noted in HPI and below PMFSH Past Medical History Medical History Anal fissure Anemia Ankylosing spondylitis of multiple sites in spine Anxiety B12 deficiency Bronchitis Chronic pain Depression Diverticulitis Emphysema of lung Fatty liver Gastro-esophageal reflux disease without esophagitis History of basal cell carcinoma (BCC) Hypertension Macular degeneration Mixed hyperlipidemia Obstructive sleep apnea Osteoporosis Peripheral neuropathy Psoriasis Seizures (1973) Seronegative rheumatoid arthritis of multiple sites patient of Dr. Shahriar Nixon Sleep apnea in adult does not use CPAP Tobacco abuse Type 2 diabetes mellitus Surgical History Surgical History History of appendectomy History of benign breast biopsy History of carpal tunnel release History of cataract extraction with lens replacement History of section History of colonoscopy History of dilatation and curettage History of lumbar laminectomy History of sinus surgery History of tubal ligation Status post anal fissurectomy Family History Family History Mother Hypertension, Onset Age: 97 Father Family history of malignant neoplasm Family history of lung cancer, Onset Age: 94 Colon cancer Sibling Family history of blood dyscrasia Other Family history of arthritis Family history of seizure disorder No family history of cardiovascular disease No family history of diabetes mellitus No family history of hypertension Prediabetes Social History Social History Social History: Surrogate medical decision maker: Misha Nam, spouse. Code status: Long discussion about options and the patient wishes to be DNR Smoking packs per day: 1 Smoking cigarettes per day: 20.0 Years smoked: 59 Smoking
[2024-07-03 18:03] VITALS: BP 163/65; PULSE 70; RESP 14; TEMP 36.5; O2SAT 95
[2024-07-03] MEDS: traMADol HCL (*CRX) 25 MG TABLET PO (18:20)
[2024-07-03] MEDS: ACETAMINOPHEN 500 MG TABLET 1000 MG PO (18:20)
[2024-07-03 19:02] VITALS: BP 153/60; PULSE 69; RESP 14; O2SAT 100
[2024-07-03 19:45] VITALS: BP 128/88; PULSE 69; RESP 14; TEMP 36.6; O2SAT 98
[2024-07-03 21:14] VITALS: BP 165/73; PULSE 72; RESP 16; O2SAT 96
--- NOTE | 2024-07-03 21:15 | PC.NURSE ---
Pt assisted to BSC with x2 assist. Moderate BM noted. Pt denies any c/o at this time
--- NOTE | 2024-07-03 21:34 | PC.NURSE ---
Addendum entered by Renetta Murrieta RN 07/03/24 21:37: RN called [facility] spoke with Sophie informing pt transport has arrived for transfer to [facility]. Original Note: Pt assessment unchanged. [facility] arrived for transfer to [facility]
== END 2024-07-03 21:50 ==
PROVIDERS: Emergency Provider Physician Assistant; PCP Emergency Medicine
DX: S09.90XA Unspecified injury of head, initial encounter (principal); S93.402A Sprain of unspecified ligament of left ankle, initial encounter; S39.012A Strain of muscle, fascia and tendon of lower back, initial encounter; J43.9 Emphysema, unspecified; I10 Essential (primary) hypertension; E11.42 Type 2 diabetes mellitus with diabetic polyneuropathy; E78.2 Mixed hyperlipidemia; E53.8 Deficiency of other specified B group vitamins; H35.30 Unspecified macular degeneration; G47.33 Obstructive sleep apnea (adult) (pediatric); L40.9 Psoriasis, unspecified; K21.9 Gastro-esophageal reflux disease without esophagitis; M81.0 Age-related osteoporosis without current pathological fracture; M06.09 Rheumatoid arthritis without rheumatoid factor, multiple sites; F17.210 Nicotine dependence, cigarettes, uncomplicated; Z86.2 Personal history of diseases of the blood and blood-forming organs and certain disorders involving the immune mechanism; Z85.828 Personal history of other malignant neoplasm of skin; Z79.02 Long term (current) use of antithrombotics/antiplatelets; Z79.82 Long term (current) use of aspirin; W17.89XA Other fall from one level to another, initial encounter; M51.369 Other intervertebral disc degeneration, lumbar region without mention of lumbar back pain or lower extremity pain; Z96.1 Presence of intraocular lens; Z98.49 Cataract extraction status, unspecified eye
CPT/HCPCS: 70450; 72125; 72131; 73521; 73610; 99284; A9270

== ENCOUNTER 2024-07-16 15:53 | Inpatient (IN) | payer MEDICARE, OTHER, SELFPAY ==
--- NOTE | ~2024-07-16 | XR_ITS ---
EXAMINATION: XR chest 2V DATE: 07/16/2024 16:47 INDICATION: Fall. TECHNIQUE: Frontal and lateral views of the chest were obtained on 3 radiographs. COMPARISON: Chest single view 03/16/2023 FINDINGS: There are airspace opacities in the lower lung zones. No pleural effusion or pneumothorax. The heart size is normal. IMPRESSION: 1. Airspace opacities in the lower lung zones, consistent with atelectasis versus pneumonia. Reviewed, dictated and finalized at location B. IMPRESSION: 1. Airspace opacities in the lower lung zones, consistent with atelectasis vers us pneumonia.
--- NOTE | ~2024-07-16 | US_ITS ---
EXAMINATION: US retroperitoneal duplex ltd DATE: 07/18/2024 19:24 INDICATION: Assess for renal artery stenosis TECHNIQUE: Multiple grayscale, color Doppler, and pulsed Doppler images of the kidneys and renal evelyne adriana were obtained. COMPARISON: None. FINDINGS: The aorta peak systolic velocity is 65 cm/s. The right renal artery peak systolic velocity is 86 cm/s in the proximal segment, 191 cm/s in the mid segment, and 106 cm/s in the distal segment. The left r enal artery peak systolic velocity is 166 cm/s in the proximal segment, 165 cm/s in the mid segment, and 107 cm/s in the distal segment. IMPRESSION: 1. Elevated peak systolic velocity in the mid right renal artery consistent with a >50-60% stenosis. Reviewed, dictated and finalized at location A. 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 Elevated peak systolic velocity in the mid right renal artery consistent wi th a >50-60% stenosis.
--- NOTE | ~2024-07-16 | CT_ITS ---
CT facial & cervical spine wo Ordering provider: Jesusita Horton History: . fall . Comparison: None. Technique: Thin slice axial CT of the facial bones was performed without contrast. Coronal and sagit angie reformatted images were also obtained. . Automated exposure control and iterative reconstruction technique were employed. The dose-length product was 392.10 mGy-cm. FINDINGS: PARANASAL SINUSES: Well aerated. BONES: No facial fracture including no nasal bone fracture. ORBITS AND SUPERFICIAL SOFT TISSUES: The optic globes and orbits are normal. The superficial soft tis sues are normal. VISUALIZED MASTOIDS: Well aerated. LIMITED VISUALIZED BRAIN PARENCHYMA: Normal. IMPRESSION: No facial fracture. CT facial & cervical spine wo Ordering provider: Jesusita Horton History: . fall . Comparison: None. Technique: CT of the cervical spine was performed without contrast. Sagittal and coronal reformatted images were also obtained and reviewed. Automated exposure control and iterative reconstruction terrance hnique were employed. The dose-length product was 392.10 mGy-cm. FINDINGS: VERTEBRAE: No subluxation or definite acute fracture. The occipital condyles are intact. Defects in the cortex of the odontoid process is seen anteriorly and posteriorly but no definite continuation of this through the bone is seen. MRI is advised for confirmation. DISC SPACES: Narrowing of the disc C5-C6 and C6-C7. Multilevel facet joint disease. Multilevel uncove rtebral joint osteoarthritic changes.. Narrowing of the left foramina at the level of C6-C7. Bilateral narrowing of the foramina at the level of C5-C6. Narrowing of the left foramina at the level of C4-C5. Narrowing of the right foramen at the level of C3-C4 PARASPINOUS SOFT TISSUES: Normal. IMPRESSION: No definite acute osseous abnormality cervical spine. Lucency in the anterior and posterior cortex is seen in the sagittal images in the odontoid process. MRI evaluation advised to exclude a fracture. Multilevel degenerative disc disease, uncovertebral joint osteoarthritic changes and intervertebral f oraminal narrowing. Reviewed, dictated and finalized at location A. IMPRESSION: No facial fracture. ------- CT facial & cervical spine wo Ordering provider: Jesusita Horton History: . fall . Comparison: None. Technique: CT of the cervical spine was performed without contrast. Sagittal a nd coronal reformatted images were also obtained and reviewed. Automated expos ure control and iterative reconstruction technique were employed. The dose-roberto th product was 392.10 mGy-cm. FINDINGS: VERTEBRAE: No subluxation or definite acute fracture. The occipital condyles ar e intact. Defects in the cortex of the odontoid process is seen anteriorly and posteriorly but no definite continuation of this through the bone is seen. MRI is advised for confirmation. DISC SPACES: Narrowing of the disc C5-C6 and C6-C7. Multilevel facet joint dise ase. Multilevel uncovertebral joint osteoarthritic changes.. Narrowing of the left foramina at the level of C6-C7. Bilateral narrowing of the foramina at the level of C5-C6. Narrowing of the left foramina at the level of C4-C5. Narrowing of the right foramen at the level of C3-C4 PARASPINOUS SOFT TISSUES: Normal. IMPRESSION: No definite acute osseous abnormality cervical spine. Lucency in the anterior and posterior cortex is seen in the sagittal images in the odontoid process. MRI evaluation advised to exclude a fracture. Multilevel degenerative disc disease, uncovertebral joint osteoarthritic change s and intervertebral foraminal narrowing.
--- NOTE | ~2024-07-16 | MR_ITS ---
EXAMINATION: MR lumbar spine wo/w con DATE: 07/17/2024 12:22 INDICATION: Fall. Low back pain. TECHNIQUE: Magnetic resonance imaging (MRI) of the lumbar spine was performed without and with 15 mL MultiHance intravenous contrast. COMPARISON: CT lumbar spine 07/03/2024 FINDINGS: There is 18 degrees dextroscoliosis of the lumbar spine. L5 is a transitional segment. Ther e is a chronic burst fracture of T12 with 1/5 loss of height. There is severely decreased disc height from L1-L2 through L4-L5. The distal spinal cord signal intensity is normal. The conus medullaris is at T12-L1. The following disc levels are specifically discussed: L1-L2: The disc is bulging and has an annular fissure. There is mild bilateral facet joint osteoarthr itis. There is mild bilateral neural foraminal stenosis. There is mild central canal stenosis. L2-L3: The disc is bulging and has an annular fissure. There is severe right and moderate left facet joint osteoarthritis. There is mild bilateral neural foraminal stenosis. There is severe central félix l stenosis. L3-L4: The disc is bulging and has an annular fissure. There is severe bilateral facet joint osteoart hritis. There is moderate right and mild left neural foraminal stenosis. There is moderate central ca nal stenosis. L4-L5: The disc is bulging and has an annular fissure. There is severe right and moderate left facet joint osteoarthritis. There is mild right neural foraminal stenosis. There is mild central canal sten osis. L5-S1: The disc does not extend beyond the endplate margin. There is no facet joint hypertrophy. Ther e is no neural foraminal stenosis. There is no central canal stenosis. IMPRESSION: 1. Severe lumbar spondylosis. 2. Lumbar dextroscoliosis. Reviewed, dictated and finalized at location B.
--- NOTE | ~2024-07-16 | CT_ITS ---
CT brain wo con Ordering provider: Jesusita Horton PA-C History: 78 years Female with . fall . Comparison: July 03, 2024 Technique: CT of the head without contrast. Radiation reduction technique utilized The dose-length product was 605.33 mGy-cm. FINDINGS: BRAIN PARENCHYMA AND CSF SPACES: Moderate leukoaraiosis and diffuse cortical atrophy. Moderate athero matous disease. Subacute/chronic Infarct seen in the right cerebellar area is unchanged. No midline s hift, mass effect or hemorrhage. The brain parenchyma and CSF spaces are otherwise normal. VISUALIZED PARANASAL SINUSES: Well aerated. MASTOIDS: Well aerated. BONES: The bones appear intact. SOFT TISSUES: Visualized nasopharynx is normal. Superficial soft tissues are normal. IMPRESSION: No acute intracranial findings. Subacute/old Infarct in the right cerebellar hemisphere unchanged from previous examination. Reviewed, dictated and finalized at location A.
--- NOTE | ~2024-07-16 | MR_ITS ---
EXAMINATION: MR cervical spine wo con DATE: 07/18/2024 08:59 INDICATION: Lucencies at the odontoid process on prior CT. Assess for fracture. TECHNIQUE: Magnetic resonance imaging (MRI) of the cervical spine was performed without intravenous c ontrast. Sequences included sagittal T2-weighted FSE, sagittal T2-weighted FS FSE, sagittal T1-weight ed FSE, axial MERGE and axial T2-weighted FSE. COMPARISON: CT dated 07/16/2024 FINDINGS: Bone alignment is normal. Vertebral body heights are normal. Bone marrow signal intensity is normal . Specifically no fracture identified at the dens with the lucency seen on prior CT likely related to vascular channels. Severe disc height loss at C6-C7, moderate disc height loss at C5-C6 and mild dis c height loss at C2-C3 through C4-C5. Cord signal intensity is normal. Visualized cervical soft tissu es are unremarkable. The following disc levels are specifically discussed: C2-C3: The disc does not extend beyond the endplate margin. There is mild bilateral uncovertebral zeinab nt osteoarthritis. There is mild right and moderate left facet joint osteoarthritis. There is no neur al foraminal stenosis. There is no central canal stenosis. C3-C4: Disc is bulging. There is moderate right and mild left uncovertebral joint osteoarthritis. The re is mild left and severe right facet joint osteoarthritis. There is mild left and moderate right ne ural foraminal stenosis. There is mild central canal stenosis. C4-C5: The disc does not extend beyond the endplate margin. There is mild left and moderate right unc overtebral joint osteoarthritis. There is mild right and severe left facet joint osteoarthritis. Ther e is mild right and moderate left neural foraminal stenosis. There is no central canal stenosis. C5-C6: Disc is bulging. There is severe bilateral uncovertebral joint osteoarthritis. There is mild l eft and mild to moderate right facet joint osteoarthritis. There is moderate left and mild right neur al foraminal stenosis. There is mild central canal stenosis. C6-C7: Posterior disc osteophyte complex. There is severe left and moderate right uncovertebral joint osteoarthritis. There is mild bilateral facet joint osteoarthritis. There is moderate left and mild right neural foraminal stenosis. There is mild central canal stenosis. C7-T1: Disc is mildly bulging. There is no uncovertebral joint osteoarthritis. There is mild to moder ate right and severe left facet joint osteoarthritis. There is no neural foraminal stenosis. There is no central canal stenosis. IMPRESSION: 1. Severe cervical spondylosis. No fracture. Reviewed, dictated and finalized at location A.
--- NOTE | ~2024-07-16 | XR_ITS ---
EXAMINATION: XR hip RT 2V w AP pelvis DATE: 07/16/2024 16:47 INDICATION: Fall. TECHNIQUE: An anteroposterior view of the pelvis and 2 views of right hip were obtained. COMPARISON: Pelvis and hip radiographs 07/03/2024 FINDINGS: There is lumbar dextroscoliosis and severe spondylosis. No fracture. There is moderate righ t hip osteoarthritis and mild left hip osteoarthritis. IMPRESSION: 1. Moderate right hip osteoarthritis and mild left hip osteoarthritis. Reviewed, dictated and finalized at location B.
[2024-07-16 15:54] VITALS: BP 139/65; PULSE 61; RESP 18; TEMP 36.5; O2SAT 98
--- NOTE | 2024-07-16 16:24 | ED_ITS ---
HPI - Fall General Chief Complaint: Fall <Jesusita Horton PA-C - Last Filed: 07/17/24 12:34> Stated Complaint: fall, R hip pain <Jesusita Horton PA-C - Last Filed: 07/17/24 12:34> Time Seen by Provider: 07/16/24 16:24 <Jesusita Horton PA-C - Last Filed: 07/17/24 12:34> Focused HPI: This is a 78 year old female that presents to the ER for a fall today with head injury. Believes she passed out. Patient reports neck pain and right hip pain. GENERAL: Well-appearing, well-nourished, and in no acute distress. HEAD: Normocephalic CHEST: Clear to auscultation. ?No respiratory distress. HEART: Regular rate and rhythm.? NEURO: ?Alert and oriented x3. Patient screened in triage and initial orders placed.? ?Additional care and disposition to be based upon?diagnostic testing and treatment. <Jesusita Horton PA-C - Last Filed: 07/17/24 12:34> History of Present Illness HPI Narrative: Patient presents here after having a fall while she was sitting on the toilet, she cannot recall exactly what happened, however she has recently been in rehab for stroke and had been discharged yesterday but still feels shaky or unsteady on her feet. Denies any pain anywhere. <Madison Candelario MD - Last Filed: 07/17/24 04:23> Related Data Home Medications: Home Medications Medication Instructions Recorded Confirmed aspirin 81 mg tablet,delayed 81 mg PO DAILY 10/10/23 07/17/24 release lamotrigine 25 mg tablet 75 mg PO Q12H 10/10/23 07/17/24 metoprolol succinate 50 mg 50 mg PO QAM 10/10/23 07/17/24 tablet,extended release 24 hr primidone 50 mg tablet 50 mg PO QAM 10/10/23 07/17/24 pantoprazole 40 mg tablet,delayed 40 mg PO QAM 06/30/24 07/17/24 release tramadol 50 mg tablet 50 mg PO Q6H PRN pain 06/30/24 07/17/24 <Jesusita Horton PA-C - Last Filed: 07/17/24 12:34> Allergies/Adverse Reactions: Allergies Allergy/AdvReac Type Severity Reaction Status Date / Time cephalexin Allergy Severe Anaphylaxis Verified 06/30/24 11:56 <Jesusita Horton PA-C - Last Filed: 07/17/24 12:34> Review of Systems Review of Systems: All systems reviewed & are unremarkable except as noted in HPI and below <Madison Candelario MD - Last Filed: 07/17/24 04:23> [facility] Past Medical History Medical History: Medical History (Updated 07/17/24 @ 09:44 by Tana Gonzalez PA-C) Anal fissure Anemia Ankylosing spondylitis of multiple sites in spine Anxiety B12 deficiency Bronchitis Chronic pain Depression Diverticulitis Emphysema of lung Fatty liver Gastro-esophageal reflux disease without esophagitis Hallucinations History of basal cell carcinoma (BCC) Hypertension Macular degeneration Mixed hyperlipidemia Obstructive sleep apnea Osteoporosis Peripheral neuropathy Psoriasis Seizures (1973) Seronegative rheumatoid arthritis of multiple sites patient of Dr. Shahriar Nixon Sleep apnea in adult does not use CPAP Tobacco abuse Type 2 diabetes mellitus <Jesusita Horton PA-C - Last Filed: 07/17/24 12:34> Surgical History Surgical History: Surgical History History of appendectomy History of benign breast biopsy History of carpal tunnel release History of cataract extraction with lens replacement History of section History of colonoscopy History of dilatation and curettage History of lumbar laminectomy History of sinus surgery History of tubal ligation Status post anal fissurectomy <Jesusita Horton PA-C - Last Filed: 07/17/24 12:34> Family History Family History: Family History Mother Hypertension, Onset Age: 97 Father Family history of malignant neoplasm Family history of lung cancer, Onset Age: 94 Colon cancer Sibling Family history of blood dyscrasia Other Family history of arthritis Family history of seizure disorder No family history of cardiovascular disease No family history of diabetes mellitus No family history of hypertension Prediabetes <Jesusita Horton PA-C - Last Filed: 07/17/24 12:34> Social History Social History: Social History Social History: Surrogate medical decision maker: Misha Cyril, spouse. Code status: Long discussion about options and the patient wishes to be DNR Smoking packs per day: 1 Smoking cigarettes per day: 20.0 Years smoked: 59 Smoking pack-years: 59.00 Smoking status: Never smoker Tobacco type: cigarettes Second hand tobacco smoke exposure: Yes Additional smoking assessment comments: 1-1.5 ppd for 59 years Alcohol intake: current Drinks per week: 14 Alcohol use details: beer-occasionally Substance use: never Do You Feel Safe in your Home?: Yes Lack of Transportation: No Lack of Food: Never True Current Housing: I Have Housing Concerned About Future Housing: No Difficulty Paying Gas/Electric Bills: No Difficulty Paying for Meds: No Currently Unemployed: No Education: Master's Degree or Higher Difficulty w/ Childcare or Family Care: No Living arrangements: with family Additional living arrangements comments: Lives with in [place]. Gender identity (if verbalized by the patient): Female Sexual Orientation (if Verbalized by the Patient): Straight or Heterosexual Spiritual care concerns: No <Jesusita Horton PA-C - Last Filed: 07/17/24 12:34> Exam Narrative: EXAMINATION OF ORGAN SYSTEMS/BODY AREAS: Constitutional: Vital signs per nursing GENERAL:[No acute distress, non-toxic appearing.] HEAD: Normal with no signs of head trauma. EYES: EOMI, conjunctiva normal ENT: Hearing grossly intact NECK: No midline tenderness; normal ROM of neck LUNGS: Nonlabored breathing. HEART: [Regular rate and rhythm] ABD: [Soft], [nontender to palpation] EXT: Normal range of motion SKIN: [No rashes or lesions.] NEURO: [Alert and oriented x 3. No gross focal sensory or strength deficits.] PSYCH: Normal affect <Madison Candelario MD - Last Filed: 07/17/24 04:23> Course Vital Signs Vital signs: Vital Signs Temperature 97.7 F 07/16/24 15:54 Pulse Rate 61 07/16/24 15:54 Respiratory Rate 18 07/16/24 15:54 Blood Pressure 139/65 07/16/24 15:54 Pulse Oximetry 98 07/16/24 15:54 Oxygen Delivery Room Air 07/16/24 15:54 Temperature 97.9 F 07/17/24 05:31 Pulse Rate 84 07/17/24 08:00 Respiratory Rate 20 07/17/24 05:31 Blood Pressure 175/65 H 07/17/24 05:31 Pulse Oximetry 94 07/17/24 05:31 Oxygen Delivery Room Air 07/17/24 08:00 <Jesusita Horton PA-C - Last Filed: 07/17/24 12:34> Vital Signs Temperature 97.7 F 07/16/24 15:54 Pulse Rate 61 07/16/24 15:54 Respiratory Rate 18 07/16/24 15:54 Blood Pressure 139/65 07/16/24 15:54 Pulse Oximetry 98 07/16/24 15:54 Oxygen Delivery Room Air 07/16/24 15:54 Temperature 97.9 F 07/17/24 05:31 Pulse Rate 84 07/17/24 08:00 Respiratory Rate 20 07/17/24 05:31 Blood Pressure 175/65 H 07/17/24 05:31 Pulse Oximetry 94 07/17/24 05:31 Oxygen Delivery Room Air 07/17/24 08:00 <Madison Candelario MD - Last Filed: 07/17/24 04:23> MDM - Fall MDM Narrative Medical decision making narrative: 1) Differential diagnosis: fracture, syncope 2) Comorbidities: CVA, hypertension 3) External notes reviewed: discharge summary 4) History sources independently obtained from: at bedside 5) Discussion of management with: neurosurgery, hospitalist 6) Independent interpretation of: EKG shows normal sinus rhythm rate 74, normal QRS, QTC, no ST elevations depressions or any obvious signs of acute ischemia or arrhythmia. 7) Diagnostic tests or therapies considered but not ordered: [] 8) Social determinants of health: [] 9) Shared decision making: [] patient presents here after multiple falls at home after recent discharge from rehab, she and at bedside do not feel safe with her currently at home. Workup initiated is unremarkable, Though there is some CT C-spine finding that may suggest possible odontoid fracture. Patient has no midline tenderness, she has full range of motion of her neck, she has no neck pain, I did discuss the case with the neurosurgeon, he feels this is very unlikely to be an actual fracture, recommend soft collar as necessary or follow up as necessary. We unfortunately do not have soft collar in the ER, the patient would rather not wear the initial C-collar she came with and I do not feel it was very effective regardless. Discussed with hospitalist for admission at this time given her frequent falls <Madison Candelario MD - Last Filed: 07/17/24 04:23> Lab Data Result diagrams: 07/16/24 22:54 07/16/24 22:54 <Jesusita Horton PA-C - Last Filed: 07/17/24 12:34> Labs: Lab Results 07/16/24 Range/Units 22:54 WBC 8.6 (4.5-10.0) K/mm3 RBC 3.38 L (4.2-5.4) M/mm3 Hgb 9.6 L (12.0-15.0) g/dL Hct 29.7 L (37.0-47.0) % MCV 87.9 (80-100) fl MCH 28.4 (26-34) pg MCHC 32.3 (32-36) g/dl RDW 15.7 H (11.5-14.5) % Plt Count 311 (150-375) k/mm3 MPV 9.9 (7.4-10.4) fl Immature Gran % (Auto) 0.5 (0-0.5) % Neut % (Auto) 68.7 (45.5-73.1) % Lymph % (Auto) 21.9 (18.3-44.2) % Page % (Auto) 6.5 (2.6-8.5) % Eos % (Auto) 2.1 (0-4.4) % Baso % (Auto) 0.3 (0.2-1.2) % Lymph # (Auto) 1.88 (0.9-3.2) K/mm3 Page # (Auto) 0.6 (0.1-0.6) K/mm3 Eos # (Auto) 0.2 (0-0.3) K/mm3 Baso # (Auto) 0.0 (0.0-0.1) K/mm3 Abs Immat Gran (auto) 0.04 H (0.00-0.031) K/mm3 Absolute Neuts (auto) 5.9 (1.3-6.7) K/mm3 Absolute Nucleated RBC 0.000 (0.0-0.012) K/mm3 Nucleated RBC % 0.0 (0.0-0.2) % Sodium 137 (137-145) mmol/L Potassium 3.6 (3.4-5.0) mmol/L Chloride 102 (98-107) mmol/L Carbon Dioxide 30 (22-30) mmol/L Anion Gap 5 (4-12) mmol/L BUN 10 (7-17) mg/dL Creatinine 0.60 L (0.7-1.0) mg/dL Estim Creat Clear Calc 60 ml/min Estimated GFR > 60 (59 - ) Glucose 138 H (65-110) mg/dL Calcium 9.0 (8.4-10.2) mg/dL Total Bilirubin 0.5 (0.2-1.3) mg/dL AST 22 (14-36) U/L ALT 16 (6-35) U/L Alkaline Phosphatase 100 (38-126) U/L Troponin I < 0.012 (0.000-0.034) ng/mL Total Protein 7.0 (6.3-8.2) g/dL Albumin 3.6 (3.5-5.1) g/dL Ethyl Alcohol < 10 (<10) mg/dL <Jesusita Horton PA-C - Last Filed: 07/17/24 12:34> Lab Results 07/16/24 Range/Units 22:54 WBC 8.6 (4.5-10.0) K/mm3 RBC 3.38 L (4.2-5.4) M/mm3 Hgb 9.6 L (12.0-15.0) g/dL Hct 29.7 L (37.0-47.0) % MCV 87.9 (80-100) fl MCH 28.4 (26-34) pg MCHC 32.3 (32-36) g/dl RDW 15.7 H (11.5-14.5) % Plt Count 311 (150-375) k/mm3 MPV 9.9 (7.4-10.4) fl Immature Gran % (Auto) 0.5 (0-0.5) % Neut % (Auto) 68.7 (45.5-73.1) % Lymph % (Auto) 21.9 (18.3-44.2) % Page % (Auto) 6.5 (2.6-8.5) % Eos % (Auto) 2.1 (0-4.4) % Baso % (Auto) 0.3 (0.2-1.2) % Lymph # (Auto) 1.88 (0.9-3.2) K/mm3 Page # (Auto) 0.6 (0.1-0.6) K/mm3 Eos # (Auto) 0.2 (0-0.3) K/mm3 Baso # (Auto) 0.0 (0.0-0.1) K/mm3 Abs Immat Gran (auto) 0.04 H (0.00-0.031) K/mm3 Absolute Neuts (auto) 5.9 (1.3-6.7) K/mm3 Absolute Nucleated RBC 0.000 (0.0-0.012) K/mm3 Nucleated RBC % 0.0 (0.0-0.2) % Sodium 137 (137-145) mmol/L Potassium 3.6 (3.4-5.0) mmol/L Chloride 102 (98-107) mmol/L Carbon Dioxide 30 (22-30) mmol/L Anion Gap 5 (4-12) mmol/L BUN 10 (7-17) mg/dL Creatinine 0.60 L (0.7-1.0) mg/dL Estim Creat Clear Calc 60 ml/min Estimated GFR > 60 (59 - ) Glucose 138 H (65-110) mg/dL Calcium 9.0 (8.4-10.2) mg/dL Total Bilirubin 0.5 (0.2-1.3) mg/dL AST 22 (14-36) U/L ALT 16 (6-35) U/L Alkaline Phosphatase 100 (38-126) U/L Troponin I < 0.012 (0.000-0.034) ng/mL Total Protein 7.0 (6.3-8.2) g/dL Albumin 3.6 (3.5-5.1) g/dL Ethyl Alcohol < 10 (<10) mg/dL <Madison Candelario MD - Last Filed: 07/17/24 04:23> Imaging Data Radiologist's impression: ITS Impressions Head CT 07/16/24 16:56 IMPRESSION: No acute intracranial findings. Subacute/old Infarct in the right cerebellar hemisphere unchanged from previous examination. Chest X-Ray 07/16/24 16:59 IMPRESSION: 1. Airspace opacities in the lower lung zones, consistent with atelectasis melinda sylvia pneumonia. Hip/Pelvis X-Ray 07/16/24 16:59 IMPRESSION: 1. Moderate right hip osteoarthritis and mild left hip osteoarthritis. Head/Cervical Spine/Facial Bones CT 07/16/24 17:03 IMPRESSION: No facial fracture. CT facial & cervical spine wo Ordering provider: Jesusita Horton History: . fall . Comparison: None. Technique: CT of the cervical spine was performed without contrast. Sagittal and coronal reformatted images were also obtained and reviewed. Automated exposure control and iterative reconstruction technique were employed. The dose- length product was 392.10 mGy-cm. FINDINGS: VERTEBRAE: No subluxation or definite acute fracture. The occipital condyles are intact. Defects in the cortex of the odontoid process is seen anteriorly and posteriorly but no definite continuation of this through the bone is seen. MRI is advised for confirmation. DISC SPACES: Narrowing of the disc C5-C6 and C6-C7. Multilevel facet joint disease. Multilevel uncovertebral joint osteoarthritic changes.. Narrowing of the left foramina at the level of C6-C7. Bilateral narrowing of the foramina at the level of C5-C6. Narrowing of the left foramina at the level of C4-C5. Narrowing of the right foramen at the level of C3-C4 PARASPINOUS SOFT TISSUES: Normal. IMPRESSION: No definite acute osseous abnormality cervical spine. Lucency in the anterior and posterior cortex is seen in the sagittal images in the odontoid process. MRI evaluation advised to exclude a fracture. Multilevel degenerative disc disease, uncovertebral joint osteoarthritic changes and intervertebral foraminal narrowing. <Jesusita Horton PA-C - Last Filed: 07/17/24 12:34> Critical Care Time Critical Care Time Critical Care Time: No <Jesusita Horton PA-C - Last Filed: 07/17/24 12:34> Discharge Plan Discharge Clinical Impression: Frequent falls <Jesusita Horton PA-C - Last Filed: 07/17/24 12:34> Patient Disposition: Still a Patient <Jesusita Horton PA-C - Last Filed: 07/17/24 12:34> Condition: Stable <Jesusita Horton PA-C - Last Filed: 07/17/24 12:34>
--- NOTE | 2024-07-16 16:24 | ECG_ITS ---
Test Date: 2024-07-16 23:06:47 Measurements Intervals [place] Rate: 74 P: 0 [place]: 0 QRS: 19 QRSD: 104 T: 51 QT: 417 QTc: 463 Interpretive Statements SINUS RHYTHM BORDERLINE AV CONDUCTION DELAY BASELINE ARTIFACT- I, II, AVR, AVL, AVF BORDERLINE ECG Compared to ECG 06/30/2024 16:31:56 NO SIGNIFICANT CHANGE Electronically Signed On 07-17-2024 06:33:03 CDT by Alfredo Wright D.O.
--- NOTE | 2024-07-16 22:56 | PC.NURSE ---
Pt. self removed c-collar and refuses to allow this RN to place it back on. MD Mendoza notified.
[2024-07-16 23:01] LABS: Basophils Percent Auto 0.3 % (0.2-1.2); Eosinophils Absolute Auto 0.2 K/mm3 (0-0.3); Eosinophils Percent Auto 2.1 % (0-4.4); Hematocrit 29.7 % (37.0-47.0); Hemoglobin 9.6 g/dL (12.0-15.0); Immature Granulocyte Absolute 0.04 K/mm3 (0.00-0.031); Immature Granulocyte Percent A 0.5 % (0-0.5); Lymphocytes Absolute Auto 1.88 K/mm3 (0.9-3.2); Lymphocytes Percent Auto 21.9 % (18.3-44.2); Mean Corpuscular HGB Conc 32.3 g/dl (32-36); Mean Corpuscular Hemoglobin 28.4 pg (26-34); Mean Corpuscular Volume 87.9 fl (80-100); Mean Platelet Volume 9.9 fl (7.4-10.4); Monocytes Absolute Auto 0.6 K/mm3 (0.1-0.6); Monocytes Percent Auto 6.5 % (2.6-8.5); Neutrophils Absolute Auto 5.9 K/mm3 (1.3-6.7); Neutrophils Percent Auto 68.7 % (45.5-73.1); Platelet Count Result 311 k/mm3 (150-375); Red Blood Count 3.38 M/mm3 (4.2-5.4); Red Cell Distribution Width 15.7 % (11.5-14.5); White Blood Count 8.6 K/mm3 (4.5-10.0)
[2024-07-16 23:12] LABS: Alanine Aminotransferase 16 U/L (6-35); Albumin Level 3.6 g/dL (3.5-5.1); Alkaline Phosphatase 100 U/L (38-126); Anion Gap 5 mmol/L (4-12); Aspartate Amino Transferase 22 U/L (14-36); Bilirubin,Total 0.5 mg/dL (0.2-1.3); Blood Urea Nitrogen 10 mg/dL (7-17); Carbon Dioxide 30 mmol/L (22-30); Chloride 102 mmol/L (98-107); Estimated CRCL calculation 60 ml/min; Estimated Glomerular Filt Rate > 60; Glucose 138 mg/dL (65-110); Potassium 3.6 mmol/L (3.4-5.0); Sodium 137 mmol/L (137-145)
[2024-07-16 23:21] LABS: Ethanol < 10 mg/dL (<10)
[2024-07-16 23:24] LABS: Troponin I < 0.012 ng/mL (0.000-0.034)
--- NOTE | 2024-07-16 23:39 | PC.NURSE ---
Assumed care of pt after receiving report from VICKY Sanchez @ [phone]
[2024-07-17] VITALS (11 sets, daily range): BP systolic 150–178; BP diastolic 60–72; PULSE 69–96; RESP 12–20; TEMP 36–36.7; O2SAT 94–96; BMI 31.7; BMI 31.8
--- NOTE | 2024-07-17 01:20 | ADMGEN ---
This patient, Blanca Nam, was admitted to Medical Room 247-. Patient/family oriented to hospital policies and general routines including ID bracelet, bed and alarms, visiting hours, pain management, procedures, bathroom and other care routines, personal items, smoking policy, room service/diet, and visiting hours. Information on how to activate the Rapid Response Team has been discussed. Patient/Family are encouraged to report perceived risks to care and to ask questions if they do not understand what they are told or what they should do.
--- NOTE | 2024-07-17 07:02 | PM.IMHP ---
H&P: HPI History of Present Illness Date/Time: 07/17/24 07:02 Chief Complaint: falls Narrative: 78-year-old female smoker with past medical history of rheumatoid arthritis, ankylosing spondylitis, chronic pain, diet-controlled type 2 diabetes mellitus, hypertension, fatty liver disease, anxiety, chronic obstructive pulmonary disease, and other comorbidities who presented to the emergency department via EMS from home for evaluation after multiple falls. Patient was recently admitted for multiple falls on 06/30-07/03. During that admission patient was diagnosed with a CVA and started on high intensity statin. She remained on plavix and asa. At time of discharge patient was then sent to [facility] and discharged on 07/15. Per , Misha patient had 2 falls the day she got home from [facility]. The first occurred secondary to patients legs giving out on her and the second occurred when patient slid out of bed trying to get up to use the bedside commode. This fall occurred at midnight and Misha was unable to help patient up which resulted in her sleeping on the floor until morning when son in law could assist her up. Per patient her most recent fall occurred yesterday when she slid off of the toilet, falling between the toilet and sink area. Patient denies feeling constipated or straining and was not dizzy/lightheaded while on the toilet. Per he went to check on her and found her unresponsive not following commands. She was down for approximately 20-30 minutes. Per patient likely hit her head on the vanity. He was unable to get patient up and called EMS for assistance. At time of assessment, patient is AOx3 but confused with further discussion. She has no complaints denying chest pain, shortness of breath, palpitations, nausea/vomiting and abdominal pain. ED workup: CBC without leukocytosis. H/H 9.6/29.7. PLT 311. Chemistry unremarkable. LFTs WNL. Troponins negative. UA 07/13: clear appearance with 1+ leukocytes, 11-20 WBC, 4+ bacteria. Urine culture: Enterococcus species. per chart review, patient was started on Macrobid while at [facility] on 07/14 and discharged with this medication. Started on Vancomycin 07/17. Head CT: No acute intracranial findings. Subacute/old Infarct in the right cerebellar hemisphere unchanged from previous examination. Brain MRI 07/01/2024: Acute to subacute right cerebellar infarct, which correlates with the hypodense area seen on CT scan from 06/30/2024. Chest XR: Airspace opacities in the lower lung zones, consistent with atelectasis versus pneumonia. Hip/pelvis XR: Moderate right hip osteoarthritis and mild left hip osteoarthritis. Head/c spine/ facial bones: No definite acute osseous abnormality cervical spine. Lucency in the anterior and posterior cortex is seen in the sagittal images in the odontoid process. MRI evaluation advised to exclude a fracture. Multilevel degenerative disc disease, uncovertebral joint osteoarthritic changes and intervertebral foraminal narrowing. Review of Systems Review of Systems: All systems reviewed & are unremarkable except as noted in HPI and below PMFSH Past Medical History Medical History Anal fissure Anemia Ankylosing spondylitis of multiple sites in spine Anxiety B12 deficiency Bronchitis Chronic pain Depression Diverticulitis Emphysema of lung Fatty liver Gastro-esophageal reflux disease without esophagitis Hallucinations History of basal cell carcinoma (BCC) Hypertension Macular degeneration Mixed hyperlipidemia Obstructive sleep apnea Osteoporosis Peripheral neuropathy Psoriasis Seizures (1973) Seronegative rheumatoid arthritis of multiple sites patient of Dr. Shahriar Nixon Sleep apnea in adult does not use CPAP Tobacco abuse Type 2 diabetes mellitus Surgical History Surgical History History of appendectomy History of benign breast biopsy History of carpal tunnel release History of cataract extraction with lens replacement History of section History of colonoscopy History of dilatation and curettage History of lumbar laminectomy History of sinus surgery History of tubal ligation Status post anal fissurectomy Family History Family History Mother Hypertension, Onset Age: 97 Father Family history of malignant neoplasm Family history of lung cancer, Onset Age: 94 Colon cancer Sibling Family history of blood dyscrasia Other Family history of arthritis Family history of seizure disorder No family history of cardiovascular disease No family history of diabetes mellitus No family history of hypertension Prediabetes Social History Social History (Updated 07/17/24 @ 15:26 by Tana Gonzalez PA-C) Social History: Surrogate medical decision maker: Misha Nam, spouse. Code status: Long discussion about options and the patient wishes to be DNR Smoking packs per day: 1 Smoking cigarettes per day: 20.0 Years smoked: 59 Smoking pack-years: 59.00 Smoking status: Former smoker Tobacco type: cigarettes Second hand tobacco smoke exposure: Yes Additional smoking assessment comments: 1-1.5 ppd for 59 years Alcohol intake: current Drinks per week: 14 Alcohol use details: beer-occasionally Substance use: never Do You Feel Safe in your Home?: Yes Lack of Transportation: No Lack of Food: Never True Current Housing: I Have Housing Concerned About Future Housing: No Difficulty Paying Gas/Electric Bills: No Difficulty Paying for Meds: No Currently Unemployed: No Education: Master's Degree or Higher Difficulty w/ Childcare or Family Care: No Living arrangements: with family Additional living arrangements comments: Lives with in [place]. Gender identity (if verbalized by the patient): Female Sexual Orientation (if Verbalized by the Patient): Straight or Heterosexual Spiritual care concerns: No Meds Home Medications and Allergies Home Medications Medication Instructions Recorded Confirmed Type aspirin 81 mg tablet,delayed 81 mg PO DAILY 10/10/23 07/17/24 History release lamotrigine 25 mg tablet 75 mg PO Q12H 10/10/23 07/17/24 History metoprolol succinate 50 mg 50 mg PO QAM 10/10/23 07/17/24 History tablet,extended release 24 hr primidone 50 mg tablet 50 mg PO QAM 10/10/23 07/17/24 History trazodone 50 mg tablet 100 mg PO HS #270 tabs 11/20/23 07/17/24 Rx amlodipine 5 mg tablet (Norvasc) 10 mg PO HS #180 tabs 05/20/24 07/17/24 Rx duloxetine 60 mg capsule,delayed 120 mg PO QAM #90 caps 05/20/24 07/17/24 Rx release lorazepam 0.5 mg tablet 0.5 mg PO TID PRN anxiety #90 tabs 05/20/24 07/17/24 Rx hydrocortisone 2.5 % topical cream 1 applic RECTAL DAILY PRN 06/24/24 07/17/24 Rx with perineal applicator hemorrhoids #30 grams (Anusol-HC) pantoprazole 40 mg tablet,delayed 40 mg PO QAM 06/30/24 07/17/24 History release tramadol 50 mg tablet 50 mg PO Q6H PRN pain 06/30/24 07/17/24 History Atorvastatin [Lipitor] 40 mg PO DAILY #30 tab-caps 07/03/24 07/17/24 Rx acetaminophen 500 mg tablet 500 mg PO BID PRN pain #30 tabs 07/15/24 07/17/24 Rx clopidogrel 75 mg tablet 75 mg PO QAM #30 tabs 07/15/24 07/17/24 Rx docusate sodium 100 mg capsule 100 mg PO BID #60 caps 07/15/24 07/17/24 Rx folic acid 1 mg tablet 1 mg PO DAILY #30 tabs 07/15/24 07/17/24 Rx gabapentin 300 mg capsule 600 mg PO BID #270 caps 07/15/24 07/17/24 Rx hydralazine 25 mg tablet 25 mg PO TID #90 tabs 07/15/24 07/17/24 Rx hydroxyzine HCl 25 mg tablet 25 mg PO QAM #30 tabs 07/15/24 07/17/24 Rx nitrofurantoin 100 mg PO Q12HR #18 caps 07/15/24 07/17/24 Rx monohydrate/macrocrystals 100 mg capsule (Macrobid) thiamine HCl (vitamin B1) 100 mg 100 mg PO QAM #30 tabs 07/15/24 07/17/24 Rx tablet (Vitamin B-1) vit A 300 mcg-C 200 mg-E 27 2 tablet PO QAM #60 tabs 07/15/24 07/17/24 Rx mg-lutein 2 mg and minerals tablet (Ocuvite with Lutein) losartan 100 mg tablet 100 mg PO DAILY #90 tabs 07/16/24 07/17/24 Rx Allergies Allergy/AdvReac Type Severity Reaction Status Date / Time cephalexin Allergy Severe Anaphylaxis Verified 06/30/24 11:56 Vital Signs Vital Signs - 24 hr 07/16/24 15:54 07/17/24 01:22 07/17/24 01:51 Temperature 97.7 F 97.9 F Pulse Rate 61 74 77 Respiratory Rate 18 20 Blood Pressure 139/65 178/60 H Pulse Oximetry 98 96 Oxygen Delivery Room Air 07/17/24 02:12 07/17/24 04:00 07/17/24 05:31 Temperature 97.9 F Pulse Rate 88 82 Respiratory Rate 20 Blood Pressure 175/65 H Pulse Oximetry 94 Oxygen Delivery Room Air Exam Narrative: AF HR 83 RR 12 SpO2 95 Bp 168/69 General: female in no acute respiratory distress who is nontoxic appearing, lying semi recumbent in bed. HEENT: Normocephalic. Atraumatic. Pupils equal round reactive to light. Extraocular movement intact. Sclera clear and anicteric.No facial asymmetry. Neck: Neck was supple. No tenderness with palpation of c spine. No dominant adenopathy, thyromegaly or masses. Chest: Lungs are clear to auscultation bilaterally. No wheezes or crackles. CV: Heart was regular rate and rhythm. S1-S2. No murmurs, gallops, or rubs. Abd: Abdomen was soft. Nontender. Nondistended. Positive bowel sounds. No organomegaly or masses. Ext: No clubbing, cyanosis, or edema. 2+ DP pulses bilaterally. Neuro: Patient is alert and oriented x3. Strength is 5/5 in both upper and lower extremities. Cranial nerves 2-12 are intact. Speech is clear. Psych: Normal mood and affect. Patient is pleasant and cooperative. Skin: Warm and dry. No rashes noted. H&P: Results Labs Labs: Short CBC 07/16/24 Range/Units 22:54 WBC 8.6 (4.5-10.0) K/mm3 Hgb 9.6 L (12.0-15.0) g/dL Hct 29.7 L (37.0-47.0) % Plt Count 311 (150-375) k/mm3 BMP 07/16/24 22:54 Sodium 137 Potassium 3.6 Chloride 102 Carbon Dioxide 30 BUN 10 Creatinine 0.60 L Glucose 138 H Calcium 9.0 Cardiac Enzymes 07/16/24 Range/Units 22:54 Troponin I < 0.012 (0.000-0.034) ng/mL Liver Function 07/16/24 Range/Units 22:54 Total Bilirubin 0.5 (0.2-1.3) mg/dL AST 22 (14-36) U/L ALT 16 (6-35) U/L Alkaline Phosphatase 100 (38-126) U/L Albumin 3.6 (3.5-5.1) g/dL Assessment and Plan Assessment and plan (1) Frequent falls: Code(s): R29.6 - Repeated falls Status: Acute Assessment and Plan: - Head CT: No acute intracranial findings. Subacute/old Infarct in the right cerebellar hemisphere unchanged from previous examination. - Brain MRI 07/01/2024: Acute to subacute right cerebellar infarct, which correlates with the hypodense area seen on CT scan from 06/30/2024. - Chest XR: Airspace opacities in the lower lung zones, consistent with atelectasis versus pneumonia. - Hip/pelvis XR: Moderate right hip osteoarthritis and mild left hip osteoarthritis. - Head/c spine/ facial bones: No definite acute osseous abnormality cervical spine. Lucency in the anterior and posterior cortex is seen in the sagittal images in the odontoid process. MRI evaluation advised to exclude a fracture. Multilevel degenerative disc disease, uncovertebral joint osteoarthritic changes and intervertebral foraminal narrowing. - MRI c spine ordered - PT/OT following imaging (2) Acute UTI: Code(s): N39.0 - Urinary tract infection, site not specified Status: Acute Assessment and Plan: - UA 07/13: clear appearance with 1+ leukocytes, 11-20 WBC, 4+ bacteria. - Urine culture: Enterococcus species. - previous micro reviewed 09/16/21: Klebsiella pneumoniae with resistance to ampicillin 09/15/21: Klebsiella species with resistance to ampicillin - per chart review, patient was started on Macrobid while at [facility] on 07/14 and discharged with this medication. Started on amoxicillin on 07/17, course to be completed on 07/24. Discussed antibiotics with ID pharmacy given patients allergy to Keflex. Pharm agree with starting amoxicillin given that patient was recently treated with amoxicillin in May and this is the better choice of therapy compared to macrobid. (3) Hypertension: Qualifiers: Hypertension type: essential hypertension Qualified Code(s): I10 - Essential (primary) hypertension Code(s): I10 - Essential (primary) hypertension Status: Acute Assessment and Plan: Chronic, continue home medications. - Amlodipine 10 mg daily - Hydralazine 25 mg TID - Losartan 100 mg daily - Metoprolol 50 mg daily - Blood pressures are running high and will be monitored closely. Dosing adjustments of her antihypertensives depending on how she trends. (4) Type 2 diabetes mellitus: Code(s): E11.9 - Type 2 diabetes mellitus without complications Status: Acute Assessment and Plan: - hypoglycemia protocol - POC blood glucose ACHS - home medication - none - correct regimen ordered - low dose TIDWM and HS - A1C 9.3 on 06/30 (5) Hx of seizure disorder: Code(s): Z86.69 - Personal history of other diseases of the nervous system and sense organs Status: Acute Assessment and Plan: Last seizure per patient was in 1973. Chronic, continue home medications. - lamotrigine 75 mg BID - primidone 50 mg daily - monitor (6) History of CVA (cerebrovascular accident): Code(s): Z86.73 - Personal history of transient ischemic attack (TIA), and cerebral infarction without residual deficits Status: Acute Assessment and Plan: Patient recently admitted from 06/30-07/03 for frequent falls likely related to patients CVA diagnosis on further imaging. Etiology of the stroke was not entirely clear although likely due to small-vessel disease. Patient has several risk factors including significant smoking history, hypertension, hyperlipidemia, diabetes, and untreated sleep apnea. No deficits noted. - Head CT: No acute intracranial findings. Subacute/old Infarct in the right cerebellar hemisphere unchanged from previous examination. - Brain MRI 06/30/2024: No acute intracranial process. Age-related changes including mild to moderate diffuse volume loss and extensive scattered nonspecific cerebral and pontine white matter T2 hyperintensity consistent with chronic small vessel ischemic disease. - Brain MRI 07/01/2024: Acute to subacute right cerebellar infarct, which correlates with the hypodense area seen on CT scan from 06/30/2024. - Remains on asa, plavix and statin as prescribed - monitor Quality VTE Prophylaxis VTE prophylaxis: pharmacologic ordered
--- NOTE | 2024-07-17 09:32 | PC.NURSE ---
RN attempted to give pt morning meds but the pt refused and stated that she was leaving AMA and was calling her to come get her.
[2024-07-17] MEDS: DULoxetine HCL 60 MG CAPSULE.DR 120 MG PO (12:43)
[2024-07-17 12:44] LABS: Glucose Point of Care 150 mg/dl (65-105)
[2024-07-17] MEDS: lamoTRIgine 25 MG TABLET 75 MG PO ×2 (12:44→20:32)
[2024-07-17] MEDS: FOLIC ACID 1 MG TABLET PO (12:44)
[2024-07-17] MEDS: ATORVASTATIN 40 MG TABLET PO (12:44)
[2024-07-17] MEDS: GABAPENTIN 300 MG CAPSULE 600 MG PO ×2 (12:44→17:21)
[2024-07-17] MEDS: METOPROLOL SUCCINATE EXT REL 50 MG TABCR PO (12:44)
[2024-07-17] MEDS: LOSARTAN POTASSIUM 100 MG TABLET PO (12:44)
[2024-07-17] MEDS: hydrALAZINE HCL 25 MG TABLET PO ×2 (12:45→17:21)
[2024-07-17] MEDS: CLOPIDOGREL BISULFATE 75 MG TABLET PO (12:45)
[2024-07-17] MEDS: THIAMINE HCL 100 MG TABLET PO (12:45)
[2024-07-17] MEDS: PANTOPRAZOLE 40 MG TABLET PO (12:45)
[2024-07-17] MEDS: PRIMIDONE 50 MG TABLET PO (12:45)
[2024-07-17] MEDS: ASPIRIN 81 MG ENTERIC TABLET PO (12:45)
[2024-07-17] MEDS: AMOXICILLIN 500 MG CAPSULE PO ×2 (12:45→21:20)
--- NOTE | 2024-07-17 13:26 | PC.NURSE ---
Patient agreed to take AM medications she previously refused while family was at bedside
[2024-07-17 16:52] LABS: Glucose Point of Care 128 mg/dl (65-105)
[2024-07-17] MEDS: ACETAMINOPHEN 325 MG TABLET 650 MG PO (17:21)
--- NOTE | 2024-07-17 19:27 | PC.NURSE ---
DOCUMENTATION FOR 07-16 DONE BY VALE THORTNON AND CHECKED OVER BY VICKY FOWLER
[2024-07-17] MEDS: amLODIPine BESYLATE 10 MG TABLET PO (20:33)
[2024-07-17 21:00] LABS: Glucose Point of Care 230 mg/dl (65-105)
[2024-07-18] VITALS (11 sets, daily range): BP systolic 150–175; BP diastolic 55–75; PULSE 68–89; RESP 16–19; TEMP 36.3–36.9; O2SAT 94–98
[2024-07-18] MEDS: AMOXICILLIN 500 MG CAPSULE PO ×3 (06:23→20:59)
--- NOTE | 2024-07-18 06:50 | P.PNIM_ITS ---
Progress Note: A&P Assessment and Plan (1) Frequent falls: Code(s): R29.6 - Repeated falls Status: Acute Assessment and Plan: Patient was recently admitted for multiple falls on 06/30-07/03, discharged to [facility] and returned home on 07/15. Per , Misha patient had 2 falls the day she got home from [facility]. The first occurred secondary to patients legs giving out on her and the second occurred when patient slid out of bed trying to get up to use the bedside commode. Per patient her most recent fall occurred yesterday when she slid off of the toilet, falling between the toilet and sink area. Possible vasovagal. - Head CT: No acute intracranial findings. Subacute/old Infarct in the right cerebellar hemisphere unchanged from previous examination. - Brain MRI 07/01/2024: Acute to subacute right cerebellar infarct, which correlates with the hypodense area seen on CT scan from 06/30/2024. - Chest XR: Airspace opacities in the lower lung zones, consistent with atelectasis versus pneumonia. - Hip/pelvis XR: Moderate right hip osteoarthritis and mild left hip osteoarthritis. - Head/c spine/ facial bones: No definite acute osseous abnormality cervical spine. Lucency in the anterior and posterior cortex is seen in the sagittal images in the odontoid process. MRI evaluation advised to exclude a fracture. Multilevel degenerative disc disease, uncovertebral joint osteoarthritic changes and intervertebral foraminal narrowing. - MRI c spine ordered, preliminary read from Dr. Badillo is no cervical fracture - C collar DC - PT/OT (2) Acute UTI: Code(s): N39.0 - Urinary tract infection, site not specified Status: Acute Assessment and Plan: - UA 07/13: clear appearance with 1+ leukocytes, 11-20 WBC, 4+ bacteria. - Urine culture: Enterococcus species. - previous micro reviewed 09/16/21: Klebsiella pneumoniae with resistance to ampicillin 09/15/21: Klebsiella species with resistance to ampicillin - per chart review, patient was started on Macrobid while at [facility] on 07/14 and discharged with this medication. Started on amoxicillin on 07/17, course to be completed on 07/24. Discussed antibiotics with ID pharmacy given patients allergy to Keflex. Pharm agree with starting amoxicillin given that patient was recently treated with amoxicillin in May and this is the better choice of therapy compared to macrobid. (3) Hypertension: Qualifiers: Hypertension type: essential hypertension Qualified Code(s): I10 - Essential (primary) hypertension Code(s): I10 - Essential (primary) hypertension Status: Acute Assessment and Plan: Chronic, continue home medications. - Amlodipine 10 mg daily - Hydralazine 25 mg TID - Losartan 100 mg daily - Metoprolol 50 mg daily - Blood pressures are running high into systolic 150-170s and will be monitored closely. Dosing adjustments of her antihypertensives depending on how she trends. - Started no imdur 15 mg daiy (4) Type 2 diabetes mellitus: Code(s): E11.9 - Type 2 diabetes mellitus without complications Status: Acute Assessment and Plan: - hypoglycemia protocol - POC blood glucose ACHS - home medication - none - correct regimen ordered - low dose TIDWM and HS - A1C 9.3 on 06/30 (5) Hx of seizure disorder: Code(s): Z86.69 - Personal history of other diseases of the nervous system and sense organs Status: Acute Assessment and Plan: Last seizure per patient was in 1973. Chronic, continue home medications. - lamotrigine 75 mg BID - primidone 50 mg daily - monitor (6) History of CVA (cerebrovascular accident): Code(s): Z86.73 - Personal history of transient ischemic attack (TIA), and cerebral infarction without residual deficits Status: Acute Assessment and Plan: Patient recently admitted from 06/30-07/03 for frequent falls likely related to patients CVA diagnosis on further imaging. Etiology of the stroke was not entirely clear although likely due to small-vessel disease. Patient has several risk factors including significant smoking history, hypertension, hyperlipidemia, diabetes, and untreated sleep apnea. No deficits noted. - Head CT: No acute intracranial findings. Subacute/old Infarct in the right cerebellar hemisphere unchanged from previous examination. - Brain MRI 06/30/2024: No acute intracranial process. Age-related changes including mild to moderate diffuse volume loss and extensive scattered nonspecific cerebral and pontine white matter T2 hyperintensity consistent with chronic small vessel ischemic disease. - Brain MRI 07/01/2024: Acute to subacute right cerebellar infarct, which correlates with the hypodense area seen on CT scan from 06/30/2024. - Remains on asa, plavix and statin as prescribed - monitor Time Spent With Patient Time with patient: 25 - 35 minutes Subjective Date/time seen: 07/18/24 06:50 Interval history: 8-year-old female smoker with past medical history of rheumatoid arthritis, ankylosing spondylitis, chronic pain, diet-controlled type 2 diabetes mellitus, hypertension, fatty liver disease, anxiety, chronic obstructive pulmonary disease, and other comorbidities who presented to the emergency department via EMS from home for evaluation after multiple falls. Patient is pleasant lying comfortably in bed. C-collar remains in place at time of assessment given the concern for possible cervical spine fracture on imaging. Patient has no complaints at this time denying any weakness/tingling /numbness to the extremities. Denies chest pain, shortness for breath, palpitations, nausea/vomiting, abdominal pain. Call made to radiology since patient has been intermittently noncompliant with her C collar. Per Dr. Badillo preliminary read there is no fracture noted. C collar dc and PT/OT ordered. Review of Systems Review of Systems: All systems reviewed & are unremarkable except as noted in HPI and below Exam Narrative: AF HR 79 RR 18 Spo2 98 BP 151/61 General: female in no acute respiratory distress who is nontoxic appearing, lying semi recumbent in bed. HEENT: Normocephalic. Atraumatic. Pupils equal round reactive to light. Extraocular movement intact. Sclera clear and anicteric.No facial asymmetry. C collar in place. Chest: Lungs are clear to auscultation bilaterally. No wheezes or crackles. CV: Heart was regular rate and rhythm. S1-S2. No murmurs, gallops, or rubs. Abd: Abdomen was soft. Nontender. Nondistended. Positive bowel sounds. No organomegaly or masses. Ext: No clubbing, cyanosis, or edema. 2+ DP pulses bilaterally. Neuro: Patient is alert and oriented x3. Strength is 5/5 in both upper and lower extremities. No upper extremity drift. Cranial nerves 2-12 are intact. Speech is clear. Objective Data Vital Signs Vital Signs: Vital Signs - 24 hr 07/17/24 08:00 07/17/24 08:00 07/17/24 12:44 Temperature Pulse Rate 84 88 Respiratory Rate Blood Pressure Pulse Oximetry Oxygen Delivery Room Air 07/17/24 12:00 07/17/24 14:10 07/17/24 14:00 Temperature 98.1 F Pulse Rate 96 83 Respiratory Rate 12 Blood Pressure 168/69 H Pulse Oximetry 95 Oxygen Delivery Room Air 07/17/24 16:00 07/17/24 19:43 07/17/24 20:00 Temperature 96.8 F L Pulse Rate 77 73 69 Respiratory Rate 20 Blood Pressure 150/72 H Pulse Oximetry 96 Oxygen Delivery 07/18/24 00:00 07/18/24 04:00 07/18/24 04:32 Temperature 97.5 F L Pulse Rate 76 89 74 Respiratory Rate 16 Blood Pressure 150/55 H Pulse Oximetry 95 Oxygen Delivery Intake/Output Intake/Output: Intake & Output 07/15/24 07/16/24 07/17/24 07/18/24 23:59 23:59 23:59 23:59 Intake Total 1070 400 Output Total 901 700 Balance 169 -300 Meds/Results Medications: Active Medications Generic Name Dose Route Start Last Admin Trade Name Freq PRN Reason Stop Dose Admin Acetaminophen 650 mg 07/17/24 16:30 07/17/24 17:21 Acetaminophen 325 Mg Tablet PO 650 mg Q8H PRN Administration Pain 1-3 Amlodipine Besylate 10 mg 07/17/24 21:00 07/17/24 20:33 Amlodipine Besylate 10 Mg Tablet PO 10 mg HS DORYS Administration Amoxicillin 500 mg 07/17/24 11:00 07/18/24 06:23 Amoxicillin 500 Mg Capsule PO 07/24/24 06:01 500 mg Q8HR DORYS Administration Aspirin 81 mg 07/17/24 09:50 07/17/24 12:45 Aspirin 81 Mg Enteric Tablet PO 81 mg DAILY DORYS Administration Atorvastatin Calcium 40 mg 07/17/24 09:30 07/17/24 12:44 Atorvastatin 40 Mg Tablet PO 40 mg DAILY DORYS Administration Clopidogrel Bisulfate 75 mg 07/17/24 09:50 07/17/24 12:45 Clopidogrel Bisulfate 75 Mg Tablet PO 75 mg QAM DORYS Administration Dextrose 12.5 gm 07/17/24 09:32 Dextrose 50% 25 Gm/50 Ml Syringe IV PUSH PRN PRN Hypoglycemia Protocol Duloxetine HCl 120 mg 07/17/24 09:25 07/17/24 12:43 Duloxetine Hcl 60 Mg Capsule.Dr PO 120 mg QAM DORYS Administration Folic Acid 1 mg 07/17/24 09:25 07/17/24 12:44 Folic Acid 1 Mg Tablet PO 1 mg DAILY DORYS Administration Gabapentin 600 mg 07/17/24 09:25 07/17/24 17:21 Gabapentin 300 Mg Capsule PO 600 mg BID DORYS Administration Glucagon 1 mg 07/17/24 09:32 Glucagon For Inj 1 Mg Vial IM PRN PRN Hypoglycemia Protocol Glucose 15 gm 07/17/24 09:32 Glucose Oral Gel 15 Gm Of Glucse In 37.5 Gm Tube PO PRN PRN Hypoglycemia Protocol Hydralazine HCl 25 mg 07/17/24 09:30 07/17/24 17:21 Hydralazine Hcl 25 Mg Tablet PO 25 mg TID DORYS Administration Dextrose 1,000 mls @ 100 mls/hr 07/17/24 09:32 Dextrose 5% 1,000 Ml IVPB PRN PRN Hypoglycemia Protocol Insulin Aspart 2 - 5 units 07/17/24 12:00 07/17/24 16:57 Insulin Aspart (*Bkc) 100 Units/Ml SUB-Q Not Given TIDWM DORYS Protocol Lamotrigine 75 mg 07/17/24 09:30 07/17/24 20:32 Lamotrigine 25 Mg Tablet PO 75 mg Q12HR DORYS Administration Losartan Potassium 100 mg 07/17/24 09:30 07/17/24 12:44 Losartan Potassium 100 Mg Tablet PO 100 mg DAILY DORYS Administration Metoprolol Succinate 50 mg 07/17/24 09:30 07/17/24 12:44 Metoprolol Succinate Ext Rel 50 Mg Tabcr PO 50 mg QAM DORYS Administration Pantoprazole Sodium 40 mg 07/17/24 09:30 07/17/24 12:45 Pantoprazole 40 Mg Tablet PO 40 mg QAM DORYS Administration Primidone 50 mg 07/17/24 09:30 07/17/24 12:45 Primidone 50 Mg Tablet PO 50 mg QAM DORYS Administration Thiamine HCl 100 mg 07/17/24 09:35 07/17/24 12:45 Thiamine Hcl 100 Mg Tablet PO 100 mg QAM DORYS Administration Radiology Results: ITS Impressions Head CT 07/16/24 16:56 IMPRESSION: No acute intracranial findings. Subacute/old Infarct in the right cerebellar hemisphere unchanged from previous examination. Chest X-Ray 07/16/24 16:59 IMPRESSION: 1. Airspace opacities in the lower lung zones, consistent with atelectasis versus pneumonia. Hip/Pelvis X-Ray 07/16/24 16:59 IMPRESSION: 1. Moderate right hip osteoarthritis and mild left hip osteoarthritis. Head/Cervical Spine/Facial Bones CT 07/16/24 17:03 IMPRESSION: No facial fracture. ------ CT facial & cervical spine wo Ordering provider: Jesusita Horton History: . fall . Comparison: None. Technique: CT of the cervical spine was performed without contrast. Sagittal and coronal reformatted images were also obtained and reviewed. Automated exposure control and iterative reconstruction technique were employed. The dose- length product was 392.10 mGy-cm. FINDINGS: VERTEBRAE: No subluxation or definite acute fracture. The occipital condyles are intact. Defects in the cortex of the odontoid process is seen anteriorly and posteriorly but no definite continuation of this through the bone is seen. MRI is advised for confirmation. DISC SPACES: Narrowing of the disc C5-C6 and C6-C7. Multilevel facet joint disease. Multilevel uncovertebral joint osteoarthritic changes.. Narrowing of the left foramina at the level of C6-C7. Bilateral narrowing of the foramina at the level of C5-C6. Narrowing of the left foramina at the level of C4-C5. Narrowing of the right foramen at the level of C3-C4 PARASPINOUS SOFT TISSUES: Normal. IMPRESSION: No definite acute osseous abnormality cervical spine. Lucency in the anterior and posterior cortex is seen in the sagittal images in the odontoid process. MRI evaluation advised to exclude a fracture. Multilevel degenerative disc disease, uncovertebral joint osteoarthritic changes and intervertebral foraminal narrowing. Lumbar Spine MRI 07/17/24 13:53 IMPRESSION: 1. Severe lumbar spondylosis. 2. Lumbar dextroscoliosis. Labs Labs: Laboratory Results - last 24 hr 07/17/24 07/17/24 07/17/24 12:41 16:49 19:42 POC Capillary Glucose 150 H 128 H 230 H Quality VTE Prophylaxis VTE prophylaxis: pharmacologic ordered
[2024-07-18 08:11] LABS: Glucose Point of Care 157 mg/dl (65-105)
--- NOTE | 2024-07-18 08:41 | PCPTNOTE ---
attempted PT eval 830- pt out of room for MRI.
[2024-07-18 09:10] LABS: Basophils Percent Auto 0.4 % (0.2-1.2); Eosinophils Absolute Auto 0.1 K/mm3 (0-0.3); Hematocrit 32.2 % (37.0-47.0); Hemoglobin 10.1 g/dL (12.0-15.0); Immature Granulocyte Absolute 0.03 K/mm3 (0.00-0.031); Immature Granulocyte Percent A 0.4 % (0-0.5); Lymphocytes Absolute Auto 1.56 K/mm3 (0.9-3.2); Lymphocytes Percent Auto 19.9 % (18.3-44.2); Mean Corpuscular HGB Conc 31.4 g/dl (32-36); Mean Corpuscular Hemoglobin 28.1 pg (26-34); Mean Corpuscular Volume 89.7 fl (80-100); Mean Platelet Volume 10.2 fl (7.4-10.4); Monocytes Absolute Auto 0.5 K/mm3 (0.1-0.6); Monocytes Percent Auto 6.3 % (2.6-8.5); Neutrophils Absolute Auto 5.6 K/mm3 (1.3-6.7); Platelet Count Result 346 k/mm3 (150-375); Red Blood Count 3.59 M/mm3 (4.2-5.4); White Blood Count 7.8 K/mm3 (4.5-10.0)
[2024-07-18 09:37] LABS: Alanine Aminotransferase 15 U/L (6-35); Albumin Level 3.8 g/dL (3.5-5.1); Alkaline Phosphatase 90 U/L (38-126); Anion Gap 7 mmol/L (4-12); Aspartate Amino Transferase 23 U/L (14-36); Bilirubin,Total 0.5 mg/dL (0.2-1.3); Blood Urea Nitrogen 7 mg/dL (7-17); Calcium 9.1 mg/dL (8.4-10.2); Carbon Dioxide 28 mmol/L (22-30); Chloride 103 mmol/L (98-107); Estimated CRCL calculation 72 ml/min; Estimated Glomerular Filt Rate > 60; Glucose 147 mg/dL (65-110); Potassium 3.4 mmol/L (3.4-5.0); Sodium 138 mmol/L (137-145)
[2024-07-18] MEDS: CLOPIDOGREL BISULFATE 75 MG TABLET PO (09:39)
[2024-07-18] MEDS: DULoxetine HCL 60 MG CAPSULE.DR 120 MG PO (09:39)
[2024-07-18] MEDS: THIAMINE HCL 100 MG TABLET PO (09:40)
[2024-07-18] MEDS: GABAPENTIN 300 MG CAPSULE 600 MG PO ×2 (09:40→17:44)
[2024-07-18] MEDS: ATORVASTATIN 40 MG TABLET PO (09:40)
[2024-07-18] MEDS: PRIMIDONE 50 MG TABLET PO (09:40)
[2024-07-18] MEDS: FOLIC ACID 1 MG TABLET PO (09:41)
[2024-07-18] MEDS: lamoTRIgine 25 MG TABLET 75 MG PO ×2 (09:41→20:58)
[2024-07-18] MEDS: ASPIRIN 81 MG ENTERIC TABLET PO (09:41)
[2024-07-18] MEDS: PANTOPRAZOLE 40 MG TABLET PO (09:41)
[2024-07-18] MEDS: METOPROLOL SUCCINATE EXT REL 50 MG TABCR PO (09:45)
[2024-07-18] MEDS: LOSARTAN POTASSIUM 100 MG TABLET PO (09:45)
[2024-07-18] MEDS: hydrALAZINE HCL 25 MG TABLET PO ×3 (09:45→17:44)
[2024-07-18 12:12] LABS: Glucose Point of Care 154 mg/dl (65-105)
[2024-07-18 16:42] LABS: Glucose Point of Care 141 mg/dl (65-105)
[2024-07-18 20:23] LABS: Glucose Point of Care 138 mg/dl (65-105)
[2024-07-18] MEDS: amLODIPine BESYLATE 10 MG TABLET PO (20:59)
[2024-07-19] VITALS (11 sets, daily range): BP systolic 118–165; BP diastolic 49–62; PULSE 65–75; RESP 18–20; TEMP 36.6–36.9; O2SAT 94–95
--- NOTE | 2024-07-19 01:00 | PC.NURSE ---
Daylight Savings Time For Daylight Savings Time Ending in the Fall - Clocks are moved back. For Daylight Savings Time Beginning in the Spring - Clocks are moved ahead. For [facility], the time of change occurs at 0200 hrs. Time is taken from the line server. This entry on the patient's chart recognizes the change in time reflected during documentation. Example: 2 entries for vital signs may be charted for 0200 hrs.
[2024-07-19] MEDS: AMOXICILLIN 500 MG CAPSULE PO ×3 (05:02→21:37)
[2024-07-19 05:53] LABS: Basophils Percent Auto 0.5 % (0.2-1.2); Eosinophils Absolute Auto 0.1 K/mm3 (0-0.3); Eosinophils Percent Auto 1.4 % (0-4.4); Hematocrit 30.4 % (37.0-47.0); Hemoglobin 9.6 g/dL (12.0-15.0); Immature Granulocyte Absolute 0.03 K/mm3 (0.00-0.031); Immature Granulocyte Percent A 0.4 % (0-0.5); Lymphocytes Absolute Auto 1.78 K/mm3 (0.9-3.2); Lymphocytes Percent Auto 23.1 % (18.3-44.2); Mean Corpuscular HGB Conc 31.6 g/dl (32-36); Mean Corpuscular Hemoglobin 27.8 pg (26-34); Mean Corpuscular Volume 88.1 fl (80-100); Mean Platelet Volume 9.9 fl (7.4-10.4); Monocytes Absolute Auto 0.6 K/mm3 (0.1-0.6); Monocytes Percent Auto 8.3 % (2.6-8.5); Neutrophils Absolute Auto 5.1 K/mm3 (1.3-6.7); Neutrophils Percent Auto 66.3 % (45.5-73.1); Platelet Count Result 339 k/mm3 (150-375); Red Blood Count 3.45 M/mm3 (4.2-5.4); Red Cell Distribution Width 15.9 % (11.5-14.5); White Blood Count 7.7 K/mm3 (4.5-10.0)
[2024-07-19 06:12] LABS: Alanine Aminotransferase 14 U/L (6-35); Albumin Level 3.6 g/dL (3.5-5.1); Alkaline Phosphatase 89 U/L (38-126); Anion Gap 7 mmol/L (4-12); Aspartate Amino Transferase 20 U/L (14-36); Bilirubin,Total 0.4 mg/dL (0.2-1.3); Blood Urea Nitrogen 7 mg/dL (7-17); Calcium 8.9 mg/dL (8.4-10.2); Carbon Dioxide 30 mmol/L (22-30); Chloride 103 mmol/L (98-107); Estimated CRCL calculation 72 ml/min; Estimated Glomerular Filt Rate > 60; Glucose 140 mg/dL (65-110); Potassium 3.1 mmol/L (3.4-5.0); Sodium 140 mmol/L (137-145)
--- NOTE | 2024-07-19 07:13 | PM.IMPN ---
Progress Note: A&P Assessment and Plan (1) Frequent falls: Code(s): R29.6 - Repeated falls Status: Acute Assessment and Plan: Patient was recently admitted for multiple falls on 06/30-07/03, discharged to [facility] and returned home on 07/15. Per , Misha patient had 2 falls the day she got home from [facility]. The first occurred secondary to patients legs giving out on her and the second occurred when patient slid out of bed trying to get up to use the bedside commode. Per patient her most recent fall occurred yesterday when she slid off of the toilet, falling between the toilet and sink area. Possible vasovagal. - Head CT: No acute intracranial findings. Subacute/old Infarct in the right cerebellar hemisphere unchanged from previous examination. - Brain MRI 07/01/2024: Acute to subacute right cerebellar infarct, which correlates with the hypodense area seen on CT scan from 06/30/2024. - Chest XR: Airspace opacities in the lower lung zones, consistent with atelectasis versus pneumonia. - Hip/pelvis XR: Moderate right hip osteoarthritis and mild left hip osteoarthritis. - Head/c spine/ facial bones: No definite acute osseous abnormality cervical spine. Lucency in the anterior and posterior cortex is seen in the sagittal images in the odontoid process. MRI evaluation advised to exclude a fracture. Multilevel degenerative disc disease, uncovertebral joint osteoarthritic changes and intervertebral foraminal narrowing. - MRI c spine: Severe cervical spondylosis. No fracture. - C collar DC - PT/OT (2) Acute UTI: Code(s): N39.0 - Urinary tract infection, site not specified Status: Acute Assessment and Plan: - UA 07/13: clear appearance with 1+ leukocytes, 11-20 WBC, 4+ bacteria. - Urine culture: Enterococcus species. - previous micro reviewed 09/16/21: Klebsiella pneumoniae with resistance to ampicillin 09/15/21: Klebsiella species with resistance to ampicillin - per chart review, patient was started on Macrobid while at [facility] on 07/14 and discharged with this medication. Started on amoxicillin on 07/17, course to be completed on 07/24. Discussed antibiotics with ID pharmacy given patients allergy to Keflex. Pharm agree with starting amoxicillin given that patient was recently treated with amoxicillin in May and this is the better choice of therapy compared to macrobid. (3) Hypertension: Qualifiers: Hypertension type: essential hypertension Qualified Code(s): I10 - Essential (primary) hypertension Code(s): I10 - Essential (primary) hypertension Status: Acute Assessment and Plan: Chronic, continue home medications. - Amlodipine 10 mg daily - Hydralazine 25 mg TID - Losartan 100 mg daily - Metoprolol 50 mg daily - Blood pressures are running high into systolic 150-170s and will be monitored closely. Dosing adjustments of her antihypertensives depending on how she trends. - Started on imdur 15 mg daiy (4) Type 2 diabetes mellitus: Code(s): E11.9 - Type 2 diabetes mellitus without complications Status: Acute Assessment and Plan: - hypoglycemia protocol - POC blood glucose ACHS - home medication - none - correct regimen ordered - low dose TIDWM - A1C 9.3 on 06/30 (5) Hx of seizure disorder: Code(s): Z86.69 - Personal history of other diseases of the nervous system and sense organs Status: Acute Assessment and Plan: Last seizure per patient was in 1973. Chronic, continue home medications. - lamotrigine 75 mg BID - primidone 50 mg daily - monitor (6) History of CVA (cerebrovascular accident): Code(s): Z86.73 - Personal history of transient ischemic attack (TIA), and cerebral infarction without residual deficits Status: Acute Assessment and Plan: Patient recently admitted from 06/30-07/03 for frequent falls likely related to patients CVA diagnosis on further imaging. Etiology of the stroke was not entirely clear although likely due to small-vessel disease. Patient has several risk factors including significant smoking history, hypertension, hyperlipidemia, diabetes, and untreated sleep apnea. No deficits noted. - Head CT: No acute intracranial findings. Subacute/old Infarct in the right cerebellar hemisphere unchanged from previous examination. - Brain MRI 06/30/2024: No acute intracranial process. Age-related changes including mild to moderate diffuse volume loss and extensive scattered nonspecific cerebral and pontine white matter T2 hyperintensity consistent with chronic small vessel ischemic disease. - Brain MRI 07/01/2024: Acute to subacute right cerebellar infarct, which correlates with the hypodense area seen on CT scan from 06/30/2024. - Remains on asa, plavix and statin as prescribed - monitor Time Spent With Patient Time with patient: 25 - 35 minutes Subjective Date/time seen: 07/19/24 07:13 Interval history: 8-year-old female smoker with past medical history of rheumatoid arthritis, ankylosing spondylitis, chronic pain, diet-controlled type 2 diabetes mellitus, hypertension, fatty liver disease, anxiety, chronic obstructive pulmonary disease, and other comorbidities who presented to the emergency department via EMS from home for evaluation after multiple falls. Patient is pleasant lying comfortably in bed with at bedside. This time denying chest pain, shortness a breath, nausea / vomiting, and abdominal pain. She states that she is working well with physical therapy. She denies dizziness/lightheadedness. Review of Systems Review of Systems: All systems reviewed & are unremarkable except as noted in HPI and below Exam Narrative: AF HR 69 RR 19 SPO2 95 BP 148/62 General: female in no acute respiratory distress who is nontoxic appearing, lying semi recumbent in bed. HEENT: Normocephalic. Atraumatic. Extraocular movement intact. Sclera clear and anicteric.No facial asymmetry. Chest: Lungs are clear to auscultation bilaterally. No wheezes or crackles. CV: Heart was regular rate and rhythm. S1-S2. No murmurs, gallops, or rubs. Abd: Abdomen was soft. Nontender. Nondistended. Positive bowel sounds. No organomegaly or masses. Ext: No clubbing, cyanosis, or edema. 2+ DP pulses bilaterally. Neuro: Patient is alert and oriented x3. Strength is 5/5 in both upper and lower extremities with push/pulls. No upper extremity drift. Cranial nerves 2-12 are intact. Speech is clear. Objective Data Vital Signs Vital Signs: Vital Signs - 24 hr 07/18/24 09:43 07/18/24 09:45 07/18/24 12:00 Temperature Pulse Rate 76 76 70 Respiratory Rate Blood Pressure 175/75 H Pulse Oximetry Oxygen Delivery 07/18/24 14:00 07/18/24 16:00 07/18/24 20:00 Temperature 98.4 F Pulse Rate 79 82 68 Respiratory Rate 18 Blood Pressure 151/61 H Pulse Oximetry 98 Oxygen Delivery 07/18/24 20:00 07/18/24 22:00 07/19/24 00:00 Temperature 97.3 F L Pulse Rate 82 71 70 Respiratory Rate 18 19 Blood Pressure 166/60 H Pulse Oximetry 98 94 Oxygen Delivery Room Air 07/19/24 04:00 07/19/24 06:00 Temperature 97.8 F Pulse Rate 74 69 Respiratory Rate 19 Blood Pressure 148/62 H Pulse Oximetry 95 Oxygen Delivery Intake/Output Intake/Output: Intake & Output 07/16/24 07/17/24 07/18/24 07/19/24 23:59 23:59 23:59 22:59 Intake Total 1070 880 175 Output Total 901 1000 700 Balance 757 -260 -884 Meds/Results Medications: Active Medications Generic Name Dose Route Start Last Admin Trade Name Freq PRN Reason Stop Dose Admin Acetaminophen 650 mg 07/17/24 16:30 07/17/24 17:21 Acetaminophen 325 Mg Tablet PO 650 mg Q8H PRN Administration Pain 1-3 Amlodipine Besylate 10 mg 07/17/24 21:00 07/18/24 20:59 Amlodipine Besylate 10 Mg Tablet PO 10 mg HS DORYS Administration Amoxicillin 500 mg 07/17/24 11:00 07/19/24 05:02 Amoxicillin 500 Mg Capsule PO 07/24/24 06:01 500 mg Q8HR DORYS Administration Aspirin 81 mg 07/17/24 09:50 07/18/24 09:41 Aspirin 81 Mg Enteric Tablet PO 81 mg DAILY DORYS Administration Atorvastatin Calcium 40 mg 07/17/24 09:30 07/18/24 09:40 Atorvastatin 40 Mg Tablet PO 40 mg DAILY DORYS Administration Clopidogrel Bisulfate 75 mg 07/17/24 09:50 07/18/24 09:39 Clopidogrel Bisulfate 75 Mg Tablet PO 75 mg QAM DORYS Administration Dextrose 12.5 gm 07/17/24 09:32 Dextrose 50% 25 Gm/50 Ml Syringe IV PUSH PRN PRN Hypoglycemia Protocol Duloxetine HCl 120 mg 07/17/24 09:25 07/18/24 09:39 Duloxetine Hcl 60 Mg Capsule.Dr PO 120 mg QAM DORYS Administration Folic Acid 1 mg 07/17/24 09:25 07/18/24 09:41 Folic Acid 1 Mg Tablet PO 1 mg DAILY DORYS Administration Gabapentin 600 mg 07/17/24 09:25 07/18/24 17:44 Gabapentin 300 Mg Capsule PO 600 mg BID DORYS Administration Glucagon 1 mg 07/17/24 09:32 Glucagon For Inj 1 Mg Vial IM PRN PRN Hypoglycemia Protocol Glucose 15 gm 07/17/24 09:32 Glucose Oral Gel 15 Gm Of Glucse In 37.5 Gm Tube PO PRN PRN Hypoglycemia Protocol Hydralazine HCl 25 mg 07/17/24 09:30 07/18/24 17:44 Hydralazine Hcl 25 Mg Tablet PO 25 mg TID DORYS Administration Dextrose 1,000 mls @ 100 mls/hr 07/17/24 09:32 Dextrose 5% 1,000 Ml IVPB PRN PRN Hypoglycemia Protocol Insulin Aspart 2 - 5 units 07/17/24 12:00 07/18/24 17:20 Insulin Aspart (*Bkc) 100 Units/Ml SUB-Q Not Given TIDWM DORYS Protocol Isosorbide Mononitrate 15 mg 07/19/24 09:00 Isosorbide Mononitrate 15 Mg Tab.Er.24h PO QAM DORYS Lamotrigine 75 mg 07/17/24 09:30 07/18/24 20:58 Lamotrigine 25 Mg Tablet PO 75 mg Q12HR DORYS Administration Losartan Potassium 100 mg 07/17/24 09:30 07/18/24 09:45 Losartan Potassium 100 Mg Tablet PO 100 mg DAILY DORYS Administration Metoprolol Succinate 50 mg 07/17/24 09:30 07/18/24 09:45 Metoprolol Succinate Ext Rel 50 Mg Tabcr PO 50 mg QAM DORYS Administration Nicotine 1 patch 07/19/24 09:00 Nicotine (*Pbkc) 7 Mg Patch TRANSDERM DAILY [facility] Pantoprazole Sodium 40 mg 07/17/24 09:30 07/18/24 09:41 Pantoprazole 40 Mg Tablet PO 40 mg QAM DORYS Administration Primidone 50 mg 07/17/24 09:30 07/18/24 09:40 Primidone 50 Mg Tablet PO 50 mg QAM DORYS Administration Thiamine HCl 100 mg 07/17/24 09:35 07/18/24 09:40 Thiamine Hcl 100 Mg Tablet PO 100 mg QAM DORYS Administration Radiology Results: ITS Impressions Head CT 07/16/24 16:56 IMPRESSION: No acute intracranial findings. Subacute/old Infarct in the right cerebellar hemisphere unchanged from previous examination. Chest X-Ray 07/16/24 16:59 IMPRESSION: 1. Airspace opacities in the lower lung zones, consistent with atelectasis versus pneumonia. Hip/Pelvis X-Ray 07/16/24 16:59 IMPRESSION: 1. Moderate right hip osteoarthritis and mild left hip osteoarthritis. Head/Cervical Spine/Facial Bones CT 07/16/24 17:03 IMPRESSION: No facial fracture. CT facial & cervical spine wo Ordering provider: Jesusita Horton History: . fall . Comparison: None. Technique: CT of the cervical spine was performed without contrast. Sagittal and coronal reformatted images were also obtained and reviewed. Automated exposure control and iterative reconstruction technique were employed. The dose-length product was 392.10 mGy-cm. FINDINGS: VERTEBRAE: No subluxation or definite acute fracture. The occipital condyles are intact. Defects in the cortex of the odontoid process is seen anteriorly and posteriorly but no definite continuation of this through the bone is seen. MRI is advised for confirmation. DISC SPACES: Narrowing of the disc C5-C6 and C6-C7. Multilevel facet joint disease. Multilevel uncovertebral joint osteoarthritic changes.. Narrowing of the left foramina at the level of C6-C7. Bilateral narrowing of the foramina at the level of C5-C6. Narrowing of the left foramina at the level of C4-C5. Narrowing of the right foramen at the level of C3-C4 PARASPINOUS SOFT TISSUES: Normal. IMPRESSION: No definite acute osseous abnormality cervical spine. Lucency in the anterior and posterior cortex is seen in the sagittal images in the odontoid process. MRI evaluation advised to exclude a fracture. Multilevel degenerative disc disease, uncovertebral joint osteoarthritic changes and intervertebral foraminal narrowing. Lumbar Spine MRI 07/17/24 13:53 IMPRESSION: 1. Severe lumbar spondylosis. 2. Lumbar dextroscoliosis. Cervical Spine MRI 07/18/24 14:26 IMPRESSION: 1. Severe cervical spondylosis. No fracture. Labs Labs: Laboratory Results - last 24 hr 07/18/24 07/18/24 07/18/24 08:34 08:35 12:09 WBC 7.8 RBC 3.59 L Hgb 10.1 L Hct 32.2 L MCV 89.7 MCH 28.1 MCHC 31.4 L RDW 16.0 H Plt Count 346 MPV 10.2 Immature Gran % (Auto) 0.4 Neut % (Auto) 72.0 Lymph % (Auto) 19.9 [place] % (Auto) 6.3 Eos % (Auto) 1.0 Baso % (Auto) 0.4 Lymph # (Auto) 1.56 [place] # (Auto) 0.5 Eos # (Auto) 0.1 Baso # (Auto) 0.0 Abs Immat Gran (auto) 0.03 Absolute Neuts (auto) 5.6 Absolute Nucleated RBC 0.000 Nucleated RBC % 0.0 Sodium 138 Potassium 3.4 Chloride 103 Carbon Dioxide 28 Anion Gap 7 BUN 7 Creatinine 0.50 L Estim Creat Clear Calc 72 Estimated GFR > 60 Glucose 147 H POC Capillary Glucose 154 H Calcium 9.1 Total Bilirubin 0.5 AST 23 ALT 15 Alkaline Phosphatase 90 Total Protein 7.0 Albumin 3.8 07/18/24 07/18/24 07/19/24 16:36 20:18 05:29 WBC 7.7 RBC 3.45 L Hgb 9.6 L Hct 30.4 L MCV 88.1 MCH 27.8 MCHC 31.6 L RDW 15.9 H Plt Count 339 MPV 9.9 Immature Gran % (Auto) 0.4 Neut % (Auto) 66.3 Lymph % (Auto) 23.1 [place] % (Auto) 8.3 Eos % (Auto) 1.4 Baso % (Auto) 0.5 Lymph # (Auto) 1.78 [place] # (Auto) 0.6 Eos # (Auto) 0.1 Baso # (Auto) 0.0 Abs Immat Gran (auto) 0.03 Absolute Neuts (auto) 5.1 Absolute Nucleated RBC 0.000 Nucleated RBC % 0.0 Sodium 140 Potassium 3.1 L Chloride 103 Carbon Dioxide 30 Anion Gap 7 BUN 7 Creatinine 0.50 L Estim Creat Clear Calc 72 Estimated GFR > 60 Glucose 140 H POC Capillary Glucose 141 H 138 H Calcium 8.9 Total Bilirubin 0.4 AST 20 ALT 14 Alkaline Phosphatase 89 Total Protein 7.0 Albumin 3.6 Quality VTE Prophylaxis VTE prophylaxis: pharmacologic ordered
[2024-07-19 08:18] LABS: Glucose Point of Care 156 mg/dl (65-105)
[2024-07-19] MEDS: NICOTINE (*PBKC) 7 MG PATCH 1 PATCH TRANSDERM (08:24)
[2024-07-19] MEDS: POTASSIUM CHLORIDE 20 MEQ ER TABLET 40 MEQ PO (08:24)
[2024-07-19] MEDS: PANTOPRAZOLE 40 MG TABLET PO (08:26)
[2024-07-19] MEDS: PRIMIDONE 50 MG TABLET PO (08:26)
[2024-07-19] MEDS: lamoTRIgine 25 MG TABLET 75 MG PO ×2 (08:26→21:37)
[2024-07-19] MEDS: ASPIRIN 81 MG ENTERIC TABLET PO (08:26)
[2024-07-19] MEDS: GABAPENTIN 300 MG CAPSULE 600 MG PO ×2 (08:26→16:25)
[2024-07-19] MEDS: LOSARTAN POTASSIUM 100 MG TABLET PO (08:27)
[2024-07-19] MEDS: ISOSORBIDE MONONITRATE 15 MG TAB.ER.24H PO (08:27)
[2024-07-19] MEDS: FOLIC ACID 1 MG TABLET PO (08:27)
[2024-07-19] MEDS: CLOPIDOGREL BISULFATE 75 MG TABLET PO (08:27)
[2024-07-19] MEDS: DULoxetine HCL 60 MG CAPSULE.DR 120 MG PO (08:27)
[2024-07-19] MEDS: THIAMINE HCL 100 MG TABLET PO (08:27)
[2024-07-19] MEDS: METOPROLOL SUCCINATE EXT REL 50 MG TABCR PO (08:27)
[2024-07-19] MEDS: hydrALAZINE HCL 25 MG TABLET PO ×3 (08:28→16:25)
[2024-07-19 12:16] LABS: Glucose Point of Care 150 mg/dl (65-105)
[2024-07-19 16:51] LABS: Glucose Point of Care 142 mg/dl (65-105)
[2024-07-19] MEDS: amLODIPine BESYLATE 10 MG TABLET PO (21:37)
[2024-07-19] MEDS: ACETAMINOPHEN 325 MG TABLET 650 MG PO (21:37)
[2024-07-19 22:17] LABS: Glucose Point of Care 153 mg/dl (65-105)
[2024-07-20] VITALS: PULSE 70
[2024-07-20 04:00] VITALS: PULSE 70
[2024-07-20 05:36] VITALS: BP 160/58; PULSE 72; RESP 18; TEMP 36.2; O2SAT 94
[2024-07-20 05:46] LABS: Basophils Percent Auto 0.4 % (0.2-1.2); Eosinophils Absolute Auto 0.1 K/mm3 (0-0.3); Eosinophils Percent Auto 1.6 % (0-4.4); Hematocrit 28.4 % (37.0-47.0); Hemoglobin 8.9 g/dL (12.0-15.0); Immature Granulocyte Absolute 0.05 K/mm3 (0.00-0.031); Immature Granulocyte Percent A 0.7 % (0-0.5); Lymphocytes Absolute Auto 1.79 K/mm3 (0.9-3.2); Lymphocytes Percent Auto 23.8 % (18.3-44.2); Mean Corpuscular HGB Conc 31.3 g/dl (32-36); Mean Corpuscular Hemoglobin 27.8 pg (26-34); Mean Corpuscular Volume 88.8 fl (80-100); Mean Platelet Volume 10.2 fl (7.4-10.4); Monocytes Absolute Auto 0.6 K/mm3 (0.1-0.6); Monocytes Percent Auto 7.7 % (2.6-8.5); Neutrophils Percent Auto 65.8 % (45.5-73.1); Platelet Count Result 327 k/mm3 (150-375); Red Cell Distribution Width 15.9 % (11.5-14.5); White Blood Count 7.5 K/mm3 (4.5-10.0)
[2024-07-20] MEDS: AMOXICILLIN 500 MG CAPSULE PO ×2 (05:48→13:39)
[2024-07-20 06:00] LABS: Alanine Aminotransferase 14 U/L (6-35); Albumin Level 3.4 g/dL (3.5-5.1); Alkaline Phosphatase 92 U/L (38-126); Anion Gap 6 mmol/L (4-12); Aspartate Amino Transferase 19 U/L (14-36); Bilirubin,Total 0.4 mg/dL (0.2-1.3); Blood Urea Nitrogen 7 mg/dL (7-17); Carbon Dioxide 30 mmol/L (22-30); Chloride 104 mmol/L (98-107); Estimated CRCL calculation 61 ml/min; Estimated Glomerular Filt Rate > 60; Glucose 151 mg/dL (65-110); Potassium 3.2 mmol/L (3.4-5.0); Sodium 140 mmol/L (137-145)
[2024-07-20 08:00] VITALS: PULSE 74
[2024-07-20 08:24] LABS: Glucose Point of Care 170 mg/dl (65-105)
[2024-07-20] MEDS: DULoxetine HCL 60 MG CAPSULE.DR 120 MG PO (08:32)
[2024-07-20] MEDS: ASPIRIN 81 MG ENTERIC TABLET PO (08:32)
[2024-07-20 08:33] VITALS: PULSE 74
[2024-07-20] MEDS: FOLIC ACID 1 MG TABLET PO (08:33)
[2024-07-20] MEDS: hydrALAZINE HCL 25 MG TABLET PO ×2 (08:33→13:39)
[2024-07-20] MEDS: POTASSIUM CHLORIDE 20 MEQ ER TABLET 40 MEQ PO (08:33)
[2024-07-20] MEDS: METOPROLOL SUCCINATE EXT REL 50 MG TABCR PO (08:33)
[2024-07-20] MEDS: ISOSORBIDE MONONITRATE 15 MG TAB.ER.24H PO (08:34)
[2024-07-20] MEDS: PANTOPRAZOLE 40 MG TABLET PO (08:34)
[2024-07-20] MEDS: lamoTRIgine 25 MG TABLET 75 MG PO (08:34)
[2024-07-20] MEDS: PRIMIDONE 50 MG TABLET PO (08:34)
[2024-07-20] MEDS: CLOPIDOGREL BISULFATE 75 MG TABLET PO (08:34)
[2024-07-20] MEDS: THIAMINE HCL 100 MG TABLET PO (08:34)
[2024-07-20] MEDS: LOSARTAN POTASSIUM 100 MG TABLET PO (08:34)
[2024-07-20] MEDS: ATORVASTATIN 40 MG TABLET PO (08:34)
[2024-07-20] MEDS: GABAPENTIN 300 MG CAPSULE 600 MG PO (08:34)
[2024-07-20] MEDS: NICOTINE (*PBKC) 7 MG PATCH 1 PATCH TRANSDERM (08:35)
[2024-07-20] MEDS: ACETAMINOPHEN 325 MG TABLET 650 MG PO (08:48)
[2024-07-20 12:00] VITALS: PULSE 58
[2024-07-20 12:00] LABS: Glucose Point of Care 187 mg/dl (65-105)
--- NOTE | 2024-07-20 12:49 | P.DS_ITS ---
DS: Admitting Diagnosis Discharge Date 07/20/2024 Admitting Diagnosis frequent falls acute UTI hypertension type 2 diabetes history of seizure history of CVA DS: Discharge Diagnosis Discharge Diagnosis (1) Frequent falls: Code(s): R29.6 - Repeated falls Status: Acute (2) Acute UTI: Code(s): N39.0 - Urinary tract infection, site not specified Status: Acute (3) Hypertension: Qualifiers: Hypertension type: essential hypertension Qualified Code(s): I10 - Essential (primary) hypertension Code(s): I10 - Essential (primary) hypertension Status: Acute (4) Type 2 diabetes mellitus: Code(s): E11.9 - Type 2 diabetes mellitus without complications Status: Acute (5) Hx of seizure disorder: Code(s): Z86.69 - Personal history of other diseases of the nervous system and sense organs Status: Acute (6) History of CVA (cerebrovascular accident): Code(s): Z86.73 - Personal history of transient ischemic attack (TIA), and cerebral infarction without residual deficits Status: Acute DS: Summary Hospital Course Reason for hospitalization: frequent falls acute UTI hypertension type 2 diabetes history of seizure history of CVA Hospital Course: 78-year-old female smoker with past medical history of rheumatoid arthritis, ankylosing spondylitis, chronic pain, diet-controlled type 2 diabetes mellitus, hypertension, fatty liver disease, anxiety, chronic obstructive pulmonary disease, and other comorbidities who presented to the emergency department via EMS from home for evaluation after multiple falls. Patient recently admitted from 06/30-07/03 for frequent falls likely related to patients CVA diagnosis on further imaging. No deficits noted. On admission patients urine sample was concerning for infection. Per chart review, patient was started on Macrobid while at [facility] on 07/14 and discharged with this medication. Urine culture grew enterococcus species. Started on amoxicillin on 07/17, course to be completed on 07/24. Discussed antibiotics with ID pharmacy given patients allergy to Keflex. Pharm agree with starting amoxicillin given that patient was recently treated with amoxicillin in May and this is the better choice of therapy compared to macrobid. Patient denied dysuria, burning sensation and hematuria on discharge. Patients chest XR was unremarkable. Hip/pelvis showed moderate right hip osteoarthritis and mild left hip osteoarthritis. Head CT showed no acute intracranial findings. Subacute/old Infarct in the right cerebellar hemisphere unchanged from previous examination. Head/c spine/ facial bones showed no definite acute osseous abnormality cervical spine. Lucency in the anterior and posterior cortex is seen in the sagittal images in the odontoid process. MRI evaluation advised to exclude a fracture. Multilevel degenerative disc disease, uncovertebral joint osteoarthritic changes and intervertebral foraminal narrowing. Patient was placed in c collar until fracture ruled out. MRI c spine showed severe cervical spondylosis. No fracture. C collar was discontinued and patient started working with PT/OT. PT/ OT recommended continued therapy at discharge. Throughout patient's admission she also continued to be hypertensive despite being on all her home medications. She was started on Imdur 15 mg daily and blood pressures have been stable. At time of discharge patient had no complaints denied chest pain, shortness a breath palpitations his nausea/vomiting and abdominal pain. Patient discharged in a condition to use on swing bed for further therapy. She is continue her antibiotics as prescribed and follow-up with primary care provider in 1 week. Status at Discharge Functional status at discharge: uses cane/walker Time Spent with Patient Time attestation: Total time spent providing and/or coordinating discharge services: Time spent: Greater than 30 minutes Exam Narrative: AF HR 72 RR 18 Spo2 94 BP 160/58 General: female in no acute respiratory distress who is nontoxic appearing, lying semi recumbent in bed. HEENT: Normocephalic. Atraumatic. Extraocular movement intact. Sclera clear and anicteric.No facial asymmetry. Chest: Lungs are clear to auscultation bilaterally. No wheezes or crackles. CV: Heart was regular rate and rhythm. S1-S2. No murmurs, gallops, or rubs. Abd: Abdomen was soft. Nontender. Nondistended. Positive bowel sounds. No organomegaly or masses. Ext: No clubbing, cyanosis, or edema. 2+ DP pulses bilaterally. Neuro: Patient is alert and oriented x3. Strength is 5/5 in both upper and lower extremities with push/pulls. No upper extremity drift. Cranial nerves 2-12 are intact. Speech is clear. DS: Data Data Completed and Pending Completed studies during hospitalization: arterial peripheral duplex C-spine MRI lumbar spine MRI head/cervical spine/facial bone CT hip/pelvis x-ray chest x-ray head CT Labs on day of discharge: Labs from last 24 hours 07/20/24 07/20/24 07/20/24 11:56 08:21 05:15 WBC 7.5 RBC 3.20 L Hgb 8.9 L Hct 28.4 L MCV 88.8 MCH 27.8 MCHC 31.3 L RDW 15.9 H Plt Count 327 MPV 10.2 Immature Gran % (Auto) 0.7 H Neut % (Auto) 65.8 Lymph % (Auto) 23.8 [place] % (Auto) 7.7 Eos % (Auto) 1.6 Baso % (Auto) 0.4 Lymph # (Auto) 1.79 [place] # (Auto) 0.6 Eos # (Auto) 0.1 Baso # (Auto) 0.0 Abs Immat Gran (auto) 0.05 H Absolute Neuts (auto) 5.0 Absolute Nucleated RBC 0.000 Nucleated RBC % 0.0 Sodium 140 Potassium 3.2 L Chloride 104 Carbon Dioxide 30 Anion Gap 6 BUN 7 Creatinine 0.60 L Estim Creat Clear Calc 61 Estimated GFR > 60 Glucose 151 H POC Capillary Glucose 187 H 170 H Calcium 9.0 Total Bilirubin 0.4 AST 19 ALT 14 Alkaline Phosphatase 92 Total Protein 7.0 Albumin 3.4 L 07/19/24 07/19/24 21:02 16:46 WBC RBC Hgb Hct MCV MCH MCHC RDW Plt Count MPV Immature Gran % (Auto) Neut % (Auto) Lymph % (Auto) [place] % (Auto) Eos % (Auto) Baso % (Auto) Lymph # (Auto) [place] # (Auto) Eos # (Auto) Baso # (Auto) Abs Immat Gran (auto) Absolute Neuts (auto) Absolute Nucleated RBC Nucleated RBC % Sodium Potassium Chloride Carbon Dioxide Anion Gap BUN Creatinine Estim Creat Clear Calc Estimated GFR Glucose POC Capillary Glucose 153 H 142 H Calcium Total Bilirubin AST ALT Alkaline Phosphatase Total Protein Albumin Discharge Plan Discharge Attending physician on discharge: Brittany Gregg Discharging Clinician: Tana Gonzalez Anticipated Discharge Date/Time: 07/20/24 12:42 Patient Disposition: Hospital Swing Bed Activity: as tolerated Diet: as tolerated and heart healthy Discharge Instructions: Discharge disposition: Patient was admitted to the hospital following a fall. Imaging was negative for any new findings related to the fall She worked with therapy during her stay who recommends continued therapy Patient continued to be treated for a urinary tract infection during her admission. Take all medications as prescribed even if feeling better Started on amoxicillin, course to be completed on 07/24/2024. Attached is information on this medication. Eat well balanced meals and stay hydrated Keep active to remain strong Avoid use of diapers or pads Good malachi Care every 2 hours Trend urine output Monitor blood pressures She remains on all of her home blood pressure medications During her admission she continued to have elevated pressures Started on Imdur 15 mg daily, attached is information on this medication Take caution while standing, rising, or moving Change positions slowly taking a break between each position change If you standing feel dizzy sat back down and take a break Encouraged to continue with yearly vaccinations Return to the emergency department if he developed sudden shortness of breath, chest pain, nausea, vomiting, upset stomach or intractable diarrhea Return to the emergency department if you develop fever greater than 101.5 Follow-up with the primary care physician within 1 weeks Thank you for choosing [facility] for your healthcare needs Patient Instructions: Antibiotic Form, Amoxicillin (By mouth), Isosorbide Mononitrate (By mouth), Hypertension (DC), Urinary Tract Infection in Older Adults (DC) Patient Language: Tanzanian Stand Alone Forms: General Discharge Information Follow-up/Referrals: Hugh Mendez MD [Primary Care Provider] - 1 Week Discharge Medications: New isosorbide mononitrate 30 mg tablet extended release 24 hr 15 mg PO DAILY Qty: 30 0RF amoxicillin 500 mg Capsule 500 mg PO Q8HR Qty: 12 0RF Continued tramadol 50 mg tablet 50 mg PO Q6H PRN (Reason: pain) pantoprazole 40 mg tablet,delayed release (DR/EC) 40 mg PO QAM Atorvastatin [Lipitor] 40 mg PO DAILY Qty: 30 0RF primidone 50 mg tablet 50 mg PO QAM aspirin 81 mg Tablet,Delayed Release (Dr/Ec) 81 mg PO DAILY lamotrigine 25 mg tablet 75 mg PO Q12H metoprolol succinate 50 mg tablet extended release 24 hr 50 mg PO QAM trazodone 50 mg tablet 100 mg PO HS Qty: 270 1RF amlodipine [Norvasc] 5 mg tablet 10 mg PO HS Qty: 180 3RF duloxetine 60 mg capsule,delayed release(DR/EC) 120 mg PO QAM Qty: 90 1RF lorazepam 0.5 mg tablet 0.5 mg PO TID PRN (Reason: anxiety) Qty: 90 0RF hydrocortisone [Anusol-HC] 2.5 % cream with perineal applicator 1 applic RECTAL DAILY PRN (Reason: hemorrhoids) Qty: 30 0RF losartan 100 mg tablet 100 mg PO DAILY Qty: 90 3RF thiamine HCl (vitamin B1) [Vitamin B-1] 100 mg Tablet 100 mg PO QAM Qty: 30 0RF hydralazine 25 mg Tablet 25 mg PO TID Qty: 90 0RF clopidogrel 75 mg Tablet 75 mg PO QAM Qty: 30 0RF docusate sodium 100 mg Capsule 100 mg PO BID Qty: 60 0RF folic acid 1 mg Tablet 1 mg PO DAILY Qty: 30 0RF hydroxyzine HCl 25 mg Tablet 25 mg PO QAM Qty: 30 0RF Ocuvite with Lutein 300 mcg-200 mg-27 mg-2 mg Tablet 2 tablet PO QAM Qty: 60 0RF acetaminophen 500 mg Tablet 500 mg PO BID PRN (Reason: pain) Qty: 30 0RF gabapentin 300 mg capsule 600 mg PO BID Qty: 270 1RF Discontinued nitrofurantoin monohyd/m-cryst [Macrobid] 100 mg Capsule 100 mg PO Q12HR Qty: 18 0RF Date of admission: 07/18/24 11:18 Primary Care Provider: Hugh Mendez Admitting Provider: Dyan Olea Attending physician on admission: Tana Gonzalez Condition: Stable Hospitalist MIPS Heart Failure (Exclusion) Patient has history of Heart Transplant or Left Ventricular Assistive Device?: No IF YES, STOP HERE Heart Failure (Qualifier) Patient has current or prior documentation of LVEF less than or equal to 40%, or mod/servere depressed LVSF?: No IF NO, STOP HERE
== END 2024-07-20 16:15 | disposition swing bed (61) | DRG 690 ==
LOC: ANHED 22:04 → ANH2MED 07-17 00:42
PROVIDERS: Physician Assistant; Admitting Provider Internal Medicine; Emergency Provider Emergency Medicine; PCP Emergency Medicine; Visit Provider Student in an Organized Health Care Education/Training Program
DX: N39.0 Urinary tract infection, site not specified (principal); B95.2 Enterococcus as the cause of diseases classified elsewhere; M16.0 Bilateral primary osteoarthritis of hip; W18.12XA Fall from or off toilet with subsequent striking against object, initial encounter; Z86.73 Personal history of transient ischemic attack (TIA), and cerebral infarction without residual deficits; M47.812 Spondylosis without myelopathy or radiculopathy, cervical region; E78.2 Mixed hyperlipidemia; E11.42 Type 2 diabetes mellitus with diabetic polyneuropathy; F41.9 Anxiety disorder, unspecified; G89.29 Other chronic pain; G47.33 Obstructive sleep apnea (adult) (pediatric); G40.909 Epilepsy, unspecified, not intractable, without status epilepticus; I10 Essential (primary) hypertension; J43.9 Emphysema, unspecified; K21.9 Gastro-esophageal reflux disease without esophagitis; K76.0 Fatty (change of) liver, not elsewhere classified; M06.9 Rheumatoid arthritis, unspecified; M45.9 Ankylosing spondylitis of unspecified sites in spine; Z66 Do not resuscitate; Z91.81 History of falling; Z79.82 Long term (current) use of aspirin; Z79.02 Long term (current) use of antithrombotics/antiplatelets; Z85.828 Personal history of other malignant neoplasm of skin; Z90.49 Acquired absence of other specified parts of digestive tract
CPT/HCPCS: 36415; 70450; 70486; 71046; 72125; 72141; 72158; 73502; 80053; 82077; 82948; 84484; 85025; 93005; 93976; 97110; 97161; 97165; 97530; 97535; 99285; A9270; A9577; G0378; L0140

== ENCOUNTER 2024-07-20 16:44 | Inpatient (IN) | payer MEDICARE, OTHER, SELFPAY ==
--- NOTE | 2024-07-20 16:55 | PC.NURSE ---
Patient arrived to unit on stretcher via ambulance service from [facility]. Patient admitted to room 226 for therapy. Patient able to transfer from stretcher to bed with minimal assist of 1 gait belt and walker. Patient has vision difficulties and is nearly blind and has limited range of motion in both Left shoulder and Left knee. Patient orientated on use of call light and bed controls. Patient educated on hospital policies including initiation of rapid response and visiting hours. Admission packet given to patient to review.
[2024-07-20 17:32] VITALS: BMI 31.4
[2024-07-20 17:49] VITALS: BP 149/63; PULSE 68; RESP 16; TEMP 36.2; O2SAT 96
[2024-07-20] MEDS: hydrALAZINE HCL 25 MG TABLET PO (19:10)
[2024-07-20] MEDS: DOCUSATE SODIUM 100 MG CAPSULE PO (19:10)
[2024-07-20] MEDS: GABAPENTIN 300 MG CAPSULE 600 MG PO (19:10)
[2024-07-20] MEDS: traMADol HCL (*CRX) 50 MG TABLET PO (19:13)
[2024-07-20 20:00] VITALS: PULSE 68; RESP 16; O2SAT 96
[2024-07-20] MEDS: lamoTRIgine 25 MG TABLET 75 MG PO (21:15)
[2024-07-20] MEDS: traZODone HCL 50 MG TABLET 100 MG PO (21:16)
[2024-07-20] MEDS: ACETAMINOPHEN 500 MG TABLET PO (21:16)
[2024-07-20] MEDS: amLODIPine BESYLATE 5 MG TABLET 10 MG PO (21:16)
[2024-07-20] MEDS: LORazepam (*CRX) 0.5 MG TABLET PO (21:16)
[2024-07-20] MEDS: AMOXICILLIN 500 MG CAPSULE PO (21:16)
[2024-07-20 21:21] LABS: Glucose Point of Care 198 mg/dl (65-105)
[2024-07-21] VITALS: BP 148/56; PULSE 76; RESP 16; TEMP 36.3; O2SAT 97
--- NOTE | 2024-07-21 03:16 | PC.NURSE ---
Patient ambulates to bathroom with 1 assist, gait belt and walker, during walk patient was unsteady at times, and required verbal and physical cues to remain in walker and stand upright. Patient states that at home she uses wheelchair for longer distances d/t her left knee issues. Bed side commode will be used tonight, until therapy can eval.
[2024-07-21] MEDS: AMOXICILLIN 500 MG CAPSULE PO ×3 (06:18→21:11)
[2024-07-21 08:00] VITALS: BP 128/86; PULSE 80; RESP 18; TEMP 36.6; O2SAT 96
[2024-07-21] MEDS: PANTOPRAZOLE 40 MG TABLET PO (09:40)
[2024-07-21] MEDS: DOCUSATE SODIUM 100 MG CAPSULE PO ×2 (09:40→16:59)
[2024-07-21 09:41] VITALS: PULSE 74
[2024-07-21] MEDS: lamoTRIgine 25 MG TABLET 75 MG PO ×2 (09:41→21:10)
[2024-07-21] MEDS: METOPROLOL SUCCINATE EXT REL 50 MG TABCR PO (09:41)
[2024-07-21] MEDS: DULoxetine HCL 30 MG CAPSULE.DR 120 MG PO (09:41)
[2024-07-21] MEDS: OPTI-GEN TAB 2 TABLET PO (09:42)
[2024-07-21] MEDS: GABAPENTIN 300 MG CAPSULE 600 MG PO ×2 (09:42→17:00)
[2024-07-21] MEDS: THIAMINE HCL 100 MG TABLET PO (09:42)
[2024-07-21] MEDS: ISOSORBIDE MONONITRATE 15 MG TAB.ER.24H PO (09:42)
[2024-07-21] MEDS: LOSARTAN POTASSIUM 50 MG TABLET 100 MG PO (09:43)
[2024-07-21] MEDS: hydrALAZINE HCL 25 MG TABLET PO ×3 (09:43→16:59)
[2024-07-21] MEDS: hydrOXYzine HCL 25 MG TABLET PO (09:43)
[2024-07-21] MEDS: FOLIC ACID 1 MG TABLET PO (09:44)
[2024-07-21] MEDS: PRIMIDONE 50 MG TABLET PO (09:44)
[2024-07-21] MEDS: CLOPIDOGREL BISULFATE 75 MG TABLET PO (09:44)
[2024-07-21] MEDS: ASPIRIN 81 MG ENTERIC TABLET PO (09:44)
[2024-07-21] MEDS: traMADol HCL (*CRX) 50 MG TABLET PO ×2 (11:01→19:01)
--- NOTE | 2024-07-21 11:51 | PM.IMHP ---
H&P: HPI History of Present Illness Date/Time: 07/21/24 11:51 Chief Complaint: Weakness, REhab , UTI Narrative: This is a 78 year old that has come to [facility] for swing bed for therapy. Patient has been falling was found to have a urinary tract infection and she has seizures. Patient while at the out lying hospital was hypertensive but did receive her home medication and she eventually returned to a baseline blood sugar. while at other hospital she to have a Subacute/old Infarct in the right cerebellar hemisphere unchanged from previous examination. Patient is on Cefdinir for a UTI and will continue on this medication until Saturday. We will plan on her see PT/OT for evaluation and treatment . We will continue to monitor her blood sugar and treat her anxiety as needed. Patient sitting up in recliner chair and she is denying pain at this moment. 78-year-old female smoker with past medical history of rheumatoid arthritis, ankylosing spondylitis, chronic pain, diet-controlled type 2 diabetes mellitus, hypertension, fatty liver disease, anxiety, chronic obstructive pulmonary disease, and other comorbidities who presented to the emergency department via EMS from home for evaluation after multiple falls. Patient recently admitted from 06/30-07/03 for frequent falls likely related to patients CVA diagnosis on further imaging. No deficits noted. On admission patients urine sample was concerning for infection. Per chart review, patient was started on Macrobid while at [facility] on 07/14 and discharged with this medication. Urine culture grew enterococcus species. Started on amoxicillin on 07/17, course to be completed on 07/24. Discussed antibiotics with ID pharmacy given patients allergy to Keflex. Pharm agree with starting amoxicillin given that patient was recently treated with amoxicillin in May and this is the better choice of therapy compared to macrobid. Patient denied dysuria, burning sensation and hematuria on discharge. Patients chest XR was unremarkable. Hip/pelvis showed moderate right hip osteoarthritis and mild left hip osteoarthritis. Head CT showed no acute intracranial findings. Subacute/old Infarct in the right cerebellar hemisphere unchanged from previous examination. Head/c spine/ facial bones showed no definite acute osseous abnormality cervical spine. Lucency in the anterior and posterior cortex is seen in the sagittal images in the odontoid process. MRI evaluation advised to exclude a fracture. Multilevel degenerative disc disease, uncovertebral joint osteoarthritic changes and intervertebral foraminal narrowing. Patient was placed in c collar until fracture ruled out. MRI c spine showed severe cervical spondylosis. No fracture. C collar was discontinued and patient started working with PT/OT. PT/ OT recommended continued therapy at discharge. Throughout patient's admission she also continued to be hypertensive despite being on all her home medications. She was started on Imdur 15 mg daily and blood pressures have been stable. At time of discharge patient had no complaints denied chest pain, shortness a breath palpitations his nausea/vomiting and abdominal pain. Review of Systems Review of Systems: weakness All systems reviewed & are unremarkable except as noted in HPI and below PMFSH Past Medical History Medical History Anal fissure Anemia Ankylosing spondylitis of multiple sites in spine Anxiety B12 deficiency Bronchitis Chronic pain Depression Diverticulitis Emphysema of lung Fatty liver Gastro-esophageal reflux disease without esophagitis Hallucinations History of basal cell carcinoma (BCC) Hypertension Macular degeneration Mixed hyperlipidemia Obstructive sleep apnea Osteoporosis Peripheral neuropathy Psoriasis Seizures (1973) Seronegative rheumatoid arthritis of multiple sites patient of Dr. Shahriar Nixon Sleep apnea in adult does not use CPAP Tobacco abuse Type 2 diabetes mellitus Surgical History Surgical History History of appendectomy History of benign breast biopsy History of carpal tunnel release History of cataract extraction with lens replacement History of section History of colonoscopy History of dilatation and curettage History of lumbar laminectomy History of sinus surgery History of tubal ligation Status post anal fissurectomy Family History Family History Mother Hypertension, Onset Age: 97 Father Family history of malignant neoplasm Family history of lung cancer, Onset Age: 94 Colon cancer Sibling Family history of blood dyscrasia Other Family history of arthritis Family history of seizure disorder No family history of cardiovascular disease No family history of diabetes mellitus No family history of hypertension Prediabetes Social History Social History Social History: Surrogate medical decision maker: Misha Nam, spouse. Code status: Long discussion about options and the patient wishes to be DNR Smoking packs per day: 0.5 Smoking cigarettes per day: 10.0 Years smoked: 64 Smoking pack-years: 32.00 Smoking status: Current some day smoker Tobacco type: cigarettes Second hand tobacco smoke exposure: Yes Additional smoking assessment comments: 1-1.5 ppd for 59 years Alcohol intake: current Drinks per week: 14 Alcohol use details: beer-occasionally Substance use: never Do You Feel Safe in your Home?: Yes Lack of Transportation: No Lack of Food: Never True Current Housing: I Have Housing Concerned About Future Housing: No Difficulty Paying Gas/Electric Bills: No Difficulty Paying for Meds: No Currently Unemployed: No Education: Master's Degree or Higher Difficulty w/ Childcare or Family Care: No Living arrangements: with family Additional living arrangements comments: Lives with in [place]. Gender identity (if verbalized by the patient): Female Sexual Orientation (if Verbalized by the Patient): Straight or Heterosexual Spiritual care concerns: No Meds Home Medications and Allergies Home Medications Medication Instructions Recorded Confirmed Type aspirin 81 mg tablet,delayed 81 mg PO DAILY 10/10/23 07/20/24 History release lamotrigine 25 mg tablet 75 mg PO Q12H 10/10/23 07/20/24 History metoprolol succinate 50 mg 50 mg PO QAM 10/10/23 07/20/24 History tablet,extended release 24 hr primidone 50 mg tablet 50 mg PO QAM 10/10/23 07/20/24 History trazodone 50 mg tablet 100 mg PO HS #270 tabs 11/20/23 07/20/24 Rx amlodipine 5 mg tablet (Norvasc) 10 mg PO HS #180 tabs 05/20/24 07/20/24 Rx duloxetine 60 mg capsule,delayed 120 mg PO QAM #90 caps 05/20/24 07/20/24 Rx release lorazepam 0.5 mg tablet 0.5 mg PO TID PRN anxiety #90 tabs 05/20/24 07/20/24 Rx hydrocortisone 2.5 % topical cream 1 applic RECTAL DAILY PRN 06/24/24 07/20/24 Rx with perineal applicator hemorrhoids #30 grams (Anusol-HC) pantoprazole 40 mg tablet,delayed 40 mg PO QAM 06/30/24 07/20/24 History release tramadol 50 mg tablet 50 mg PO Q6H PRN pain 06/30/24 07/20/24 History Atorvastatin [Lipitor] 40 mg PO DAILY #30 tab-caps 07/03/24 07/20/24 Rx acetaminophen 500 mg tablet 500 mg PO BID PRN pain #30 tabs 07/15/24 07/20/24 Rx clopidogrel 75 mg tablet 75 mg PO QAM #30 tabs 07/15/24 07/20/24 Rx docusate sodium 100 mg capsule 100 mg PO BID #60 caps 07/15/24 07/20/24 Rx folic acid 1 mg tablet 1 mg PO DAILY #30 tabs 07/15/24 07/20/24 Rx gabapentin 300 mg capsule 600 mg PO BID #270 caps 07/15/24 07/20/24 Rx hydralazine 25 mg tablet 25 mg PO TID #90 tabs 07/15/24 07/20/24 Rx hydroxyzine HCl 25 mg tablet 25 mg PO QAM #30 tabs 07/15/24 07/20/24 Rx thiamine HCl (vitamin B1) 100 mg 100 mg PO QAM #30 tabs 07/15/24 07/20/24 Rx tablet (Vitamin B-1) vit A 300 mcg-C 200 mg-E 27 2 tablet PO QAM #60 tabs 07/15/24 07/20/24 Rx mg-lutein 2 mg and minerals tablet (Ocuvite with Lutein) losartan 100 mg tablet 100 mg PO DAILY #90 tabs 07/16/24 07/20/24 Rx amoxicillin 500 mg capsule 500 mg PO Q8HR #12 caps 07/20/24 07/20/24 Rx isosorbide mononitrate 30 mg 15 mg PO DAILY #30 tabs 07/20/24 07/20/24 Rx tablet,extended release 24 hr Allergies Allergy/AdvReac Type Severity Reaction Status Date / Time cephalexin Allergy Severe Anaphylaxis Verified 06/30/24 11:56 Vital Signs Vital Signs - 24 hr 07/20/24 17:49 07/20/24 17:49 07/20/24 20:00 Temperature 97.1 F L Pulse Rate 68 68 Respiratory Rate 16 16 Blood Pressure 149/63 H Pulse Oximetry 96 96 Oxygen Delivery Room Air Room Air Room Air 07/21/24 00:00 07/21/24 09:41 07/21/24 08:00 Temperature 97.4 F L 97.8 F Pulse Rate 76 74 80 Respiratory Rate 16 18 Blood Pressure 148/56 H 128/86 Pulse Oximetry 97 96 Oxygen Delivery Room Air Room Air Exam Const: General: comfortable and no acute distress Eyes: General: appearance normal, both eyes and all related structures Resp: Effort & Inspection: normal respiratory effort Cardio: Rate: regular rate Skin: General skin exam: normal color and no rashes or lesions noted Neuro: General: gait normal Speech: normal speech Psych: Mental Status: mental status grossly normal Assessment and Plan Assessment and plan (1) History of CVA (cerebrovascular accident): Code(s): Z86.73 - Personal history of transient ischemic attack (TIA), and cerebral infarction without residual deficits Status: Acute Assessment and Plan: Asprin (2) Hx of seizure disorder: Code(s): Z86.69 - Personal history of other diseases of the nervous system and sense organs Status: Acute Assessment and Plan: continue home medication (3) Hallucinations: Code(s): R44.3 - Hallucinations, unspecified Status: Acute (4) Gait abnormality: Code(s): R26.9 - Unspecified abnormalities of gait and mobility Status: Acute (5) Debilitated: Code(s): R53.81 - Other malaise Status: Acute Assessment and Plan: PT/OT evaluate and ttreat (6) Hypertension: Qualifiers: Hypertension type: essential hypertension Qualified Code(s): I10 - Essential (primary) hypertension Code(s): I10 - Essential (primary) hypertension Status: Acute Assessment and Plan: cotinue home medication (7) UTI (urinary tract infection) with pyuria: Code(s): N39.0 - Urinary tract infection, site not specified Status: Acute Assessment and Plan: cefdinir stop on Saturday
[2024-07-21 16:00] VITALS: BP 148/54; PULSE 67; RESP 18; TEMP 36.7; O2SAT 95
[2024-07-21] MEDS: INSULIN HUMAN LISPRO (*BKC) 1,000 UNITS/10 ML VIAL SUB-Q (17:03)
[2024-07-21 17:04] LABS: Glucose Point of Care 203 mg/dl (65-105)
[2024-07-21] MEDS: HYDROcodone/acetaminophen (*CRX) 5-325 MG TABLET 1 TAB PO (21:09)
[2024-07-21] MEDS: amLODIPine BESYLATE 5 MG TABLET 10 MG PO (21:10)
[2024-07-21] MEDS: traZODone HCL 50 MG TABLET 100 MG PO (21:10)
[2024-07-21 21:22] LABS: Glucose Point of Care 193 mg/dl (65-105)
[2024-07-22] VITALS: BP 141/47; PULSE 69; RESP 18; TEMP 36.4; O2SAT 93
[2024-07-22] MEDS: AMOXICILLIN 500 MG CAPSULE PO ×3 (06:24→22:04)
[2024-07-22 07:51] VITALS: BP 150/78; PULSE 84; RESP 18; TEMP 36.6; O2SAT 96
[2024-07-22 08:23] LABS: Glucose Point of Care 156 mg/dl (65-105)
[2024-07-22] MEDS: CLOPIDOGREL BISULFATE 75 MG TABLET PO (08:23)
[2024-07-22] MEDS: DOCUSATE SODIUM 100 MG CAPSULE PO ×2 (08:23→16:27)
[2024-07-22] MEDS: lamoTRIgine 25 MG TABLET 75 MG PO ×2 (08:24→20:10)
[2024-07-22] MEDS: DULoxetine HCL 30 MG CAPSULE.DR 120 MG PO (08:24)
[2024-07-22] MEDS: OPTI-GEN TAB 2 TABLET PO (08:24)
[2024-07-22] MEDS: PRIMIDONE 50 MG TABLET PO (08:25)
[2024-07-22] MEDS: ASPIRIN 81 MG ENTERIC TABLET PO (08:26)
[2024-07-22] MEDS: GABAPENTIN 300 MG CAPSULE 600 MG PO ×2 (08:26→16:27)
[2024-07-22] MEDS: PANTOPRAZOLE 40 MG TABLET PO (08:26)
[2024-07-22 08:27] VITALS: PULSE 84
[2024-07-22] MEDS: LOSARTAN POTASSIUM 50 MG TABLET 100 MG PO (08:27)
[2024-07-22] MEDS: ISOSORBIDE MONONITRATE 15 MG TAB.ER.24H PO (08:27)
[2024-07-22] MEDS: METOPROLOL SUCCINATE EXT REL 50 MG TABCR PO (08:27)
[2024-07-22] MEDS: hydrALAZINE HCL 25 MG TABLET PO ×3 (08:27→16:27)
[2024-07-22] MEDS: THIAMINE HCL 100 MG TABLET PO (08:27)
[2024-07-22] MEDS: hydrOXYzine HCL 25 MG TABLET PO (08:27)
[2024-07-22] MEDS: FOLIC ACID 1 MG TABLET PO (08:28)
[2024-07-22 12:13] LABS: Glucose Point of Care 160 mg/dl (65-105)
[2024-07-22 16:00] VITALS: BP 148/60; PULSE 70; RESP 20; TEMP 36.4; O2SAT 96
[2024-07-22 16:03] LABS: Glucose Point of Care 162 mg/dl (65-105)
[2024-07-22] MEDS: traZODone HCL 50 MG TABLET 100 MG PO (20:10)
[2024-07-22 20:11] LABS: Glucose Point of Care 187 mg/dl (65-105)
[2024-07-22] MEDS: LORazepam (*CRX) 0.5 MG TABLET PO (20:11)
[2024-07-22] MEDS: amLODIPine BESYLATE 5 MG TABLET 10 MG PO (20:11)
[2024-07-23] VITALS: BP 150/50; PULSE 69; RESP 16; TEMP 36.6; O2SAT 95
[2024-07-23] MEDS: AMOXICILLIN 500 MG CAPSULE PO ×3 (06:02→22:07)
[2024-07-23 08:00] VITALS: BP 151/62; PULSE 77; RESP 17; TEMP 36.2; O2SAT 95
[2024-07-23 08:04] LABS: Glucose Point of Care 157 mg/dl (65-105)
[2024-07-23] MEDS: hydrALAZINE HCL 25 MG TABLET PO ×3 (08:27→17:46)
[2024-07-23] MEDS: HYDROcodone/acetaminophen (*CRX) 5-325 MG TABLET 1 TAB PO (08:27)
[2024-07-23] MEDS: LOSARTAN POTASSIUM 50 MG TABLET 100 MG PO (08:27)
[2024-07-23] MEDS: lamoTRIgine 25 MG TABLET 75 MG PO ×2 (08:27→20:14)
[2024-07-23 08:28] VITALS: PULSE 77
[2024-07-23] MEDS: METOPROLOL SUCCINATE EXT REL 50 MG TABCR PO (08:28)
[2024-07-23] MEDS: DOCUSATE SODIUM 100 MG CAPSULE PO ×2 (08:28→17:46)
[2024-07-23] MEDS: GABAPENTIN 300 MG CAPSULE 600 MG PO ×2 (08:28→17:46)
[2024-07-23] MEDS: LORazepam (*CRX) 0.5 MG TABLET PO (08:28)
[2024-07-23] MEDS: ISOSORBIDE MONONITRATE 15 MG TAB.ER.24H PO (08:28)
[2024-07-23] MEDS: DULoxetine HCL 30 MG CAPSULE.DR 120 MG PO (08:28)
[2024-07-23] MEDS: PRIMIDONE 50 MG TABLET PO (08:29)
[2024-07-23] MEDS: PANTOPRAZOLE 40 MG TABLET PO (08:29)
[2024-07-23] MEDS: OPTI-GEN TAB 2 TABLET PO (08:29)
[2024-07-23] MEDS: CLOPIDOGREL BISULFATE 75 MG TABLET PO (08:29)
[2024-07-23] MEDS: THIAMINE HCL 100 MG TABLET PO (08:29)
[2024-07-23] MEDS: hydrOXYzine HCL 25 MG TABLET PO (08:29)
[2024-07-23] MEDS: ASPIRIN 81 MG ENTERIC TABLET PO (08:29)
[2024-07-23] MEDS: ATORVASTATIN 40 MG TABLET PO (08:29)
[2024-07-23] MEDS: FOLIC ACID 1 MG TABLET PO (08:29)
[2024-07-23 12:01] LABS: Glucose Point of Care 129 mg/dl (65-105)
[2024-07-23 13:30] VITALS: BP 153/52; PULSE 67
--- NOTE | 2024-07-23 13:30 | PC.NURSE ---
Pt's called out for nurse. Upon arrival to room, pt was lying in bed. stated that she is not herself . Neither pt or could explain what that meant. Pt appeared tired with difficulty finding words. Pt had no facial drooping, tongue was midline, arm and leg strength was the same as morning assessment. Pt was able to answer all orientation questions. Pt was very tired, but easily aroused. After engaging with patient, she fell asleep quickly. thinks maybe she is just tired , but wanted staff to know this is different than usual.
[2024-07-23 16:00] VITALS: BP 138/54; PULSE 69; RESP 17; TEMP 36.3; O2SAT 95
[2024-07-23 17:12] LABS: Glucose Point of Care 109 mg/dl (65-105)
[2024-07-23] MEDS: amLODIPine BESYLATE 5 MG TABLET 10 MG PO (20:15)
[2024-07-23] MEDS: traMADol HCL (*CRX) 50 MG TABLET PO (20:15)
[2024-07-23] MEDS: ACETAMINOPHEN 500 MG TABLET PO (20:15)
[2024-07-23] MEDS: traZODone HCL 50 MG TABLET 100 MG PO (20:15)
[2024-07-23 20:17] LABS: Glucose Point of Care 154 mg/dl (65-105)
[2024-07-24] VITALS: BP 157/60; PULSE 74; RESP 16; TEMP 36.3; O2SAT 95
[2024-07-24] MEDS: AMOXICILLIN 500 MG CAPSULE PO ×3 (05:55→20:52)
[2024-07-24 08:00] VITALS: BP 155/59; PULSE 76; RESP 19; TEMP 36.6; O2SAT 95
[2024-07-24] MEDS: ACETAMINOPHEN 500 MG TABLET PO (09:28)
[2024-07-24 09:29] VITALS: PULSE 88
[2024-07-24] MEDS: traMADol HCL (*CRX) 50 MG TABLET PO ×2 (09:29→20:57)
[2024-07-24] MEDS: lamoTRIgine 25 MG TABLET 75 MG PO ×2 (09:29→20:51)
[2024-07-24] MEDS: METOPROLOL SUCCINATE EXT REL 50 MG TABCR PO (09:29)
[2024-07-24] MEDS: PRIMIDONE 50 MG TABLET PO (09:30)
[2024-07-24] MEDS: hydrOXYzine HCL 25 MG TABLET PO (09:30)
[2024-07-24] MEDS: OPTI-GEN TAB 2 TABLET PO (09:30)
[2024-07-24] MEDS: ISOSORBIDE MONONITRATE 15 MG TAB.ER.24H PO (09:30)
[2024-07-24] MEDS: DULoxetine HCL 30 MG CAPSULE.DR 120 MG PO (09:30)
[2024-07-24] MEDS: CLOPIDOGREL BISULFATE 75 MG TABLET PO (09:30)
[2024-07-24] MEDS: ATORVASTATIN 40 MG TABLET PO (09:30)
[2024-07-24] MEDS: THIAMINE HCL 100 MG TABLET PO (09:30)
[2024-07-24] MEDS: FOLIC ACID 1 MG TABLET PO (09:30)
[2024-07-24] MEDS: DOCUSATE SODIUM 100 MG CAPSULE PO ×2 (09:30→17:34)
[2024-07-24] MEDS: ASPIRIN 81 MG ENTERIC TABLET PO (09:30)
[2024-07-24] MEDS: LOSARTAN POTASSIUM 50 MG TABLET 100 MG PO (09:30)
[2024-07-24] MEDS: GABAPENTIN 300 MG CAPSULE 600 MG PO ×2 (09:30→17:34)
[2024-07-24] MEDS: PANTOPRAZOLE 40 MG TABLET PO (09:30)
[2024-07-24] MEDS: hydrALAZINE HCL 25 MG TABLET PO ×3 (09:31→17:34)
[2024-07-24 12:06] LABS: Glucose Point of Care 151 mg/dl (65-105)
[2024-07-24 12:06] LABS: Glucose Point of Care 147 mg/dl (65-105)
[2024-07-24 16:00] VITALS: BP 132/54; PULSE 77; RESP 16; TEMP 36.6; O2SAT 97
[2024-07-24 16:46] LABS: Glucose Point of Care 108 mg/dl (65-105)
[2024-07-24 20:00] VITALS: PULSE 69; RESP 18; O2SAT 97
[2024-07-24] MEDS: amLODIPine BESYLATE 5 MG TABLET 10 MG PO (20:50)
[2024-07-24 20:51] LABS: Glucose Point of Care 180 mg/dl (65-105)
[2024-07-24] MEDS: traZODone HCL 50 MG TABLET 100 MG PO (20:52)
[2024-07-25] VITALS: BP 142/56; PULSE 75; RESP 18; TEMP 36.6; O2SAT 95
[2024-07-25] MEDS: traMADol HCL (*CRX) 50 MG TABLET PO ×3 (07:18→20:58)
[2024-07-25 07:34] LABS: Glucose Point of Care 128 mg/dl (65-105)
[2024-07-25 08:00] VITALS: BP 144/58; PULSE 73; RESP 18; TEMP 36.3; O2SAT 94
[2024-07-25] MEDS: GABAPENTIN 300 MG CAPSULE 600 MG PO ×2 (10:46→17:37)
[2024-07-25] MEDS: hydrOXYzine HCL 25 MG TABLET PO (10:47)
[2024-07-25] MEDS: OPTI-GEN TAB 2 TABLET PO (10:47)
[2024-07-25] MEDS: ISOSORBIDE MONONITRATE 15 MG TAB.ER.24H PO (10:47)
[2024-07-25] MEDS: lamoTRIgine 25 MG TABLET 75 MG PO ×2 (10:48→20:58)
[2024-07-25] MEDS: THIAMINE HCL 100 MG TABLET PO (10:48)
[2024-07-25] MEDS: DULoxetine HCL 30 MG CAPSULE.DR 120 MG PO (10:50)
[2024-07-25] MEDS: PRIMIDONE 50 MG TABLET PO (10:50)
[2024-07-25] MEDS: LOSARTAN POTASSIUM 50 MG TABLET 100 MG PO (10:51)
[2024-07-25] MEDS: PANTOPRAZOLE 40 MG TABLET PO (10:52)
[2024-07-25] MEDS: ATORVASTATIN 40 MG TABLET PO (10:52)
[2024-07-25 10:55] VITALS: PULSE 50
[2024-07-25] MEDS: CLOPIDOGREL BISULFATE 75 MG TABLET PO (10:56)
[2024-07-25] MEDS: hydrALAZINE HCL 25 MG TABLET PO ×3 (10:56→17:36)
[2024-07-25] MEDS: ASPIRIN 81 MG ENTERIC TABLET PO (10:56)
[2024-07-25] MEDS: FOLIC ACID 1 MG TABLET PO (11:00)
[2024-07-25] MEDS: DOCUSATE SODIUM 100 MG CAPSULE PO ×2 (11:01→17:37)
[2024-07-25 15:31] VITALS: BP 134/60; PULSE 68; RESP 18; TEMP 36.1; O2SAT 94
[2024-07-25 17:05] LABS: Glucose Point of Care 141 mg/dl (65-105)
[2024-07-25 17:16] LABS: Glucose Point of Care 107 mg/dl (65-105)
[2024-07-25] MEDS: LORazepam (*CRX) 0.5 MG TABLET PO (20:58)
[2024-07-25] MEDS: amLODIPine BESYLATE 5 MG TABLET 10 MG PO (20:58)
[2024-07-25] MEDS: traZODone HCL 50 MG TABLET 100 MG PO (20:58)
[2024-07-25 20:59] LABS: Glucose Point of Care 137 mg/dl (65-105)
[2024-07-26] VITALS: BP 146/60; PULSE 77; RESP 16; TEMP 36.6; O2SAT 93
[2024-07-26 07:53] VITALS: BP 137/56; PULSE 84; RESP 16; TEMP 36.6; O2SAT 95
[2024-07-26 07:54] LABS: Glucose Point of Care 151 mg/dl (65-105)
[2024-07-26 08:00] VITALS: PULSE 84; RESP 18; O2SAT 95
[2024-07-26] MEDS: ISOSORBIDE MONONITRATE 15 MG TAB.ER.24H PO (09:22)
[2024-07-26] MEDS: hydrALAZINE HCL 25 MG TABLET PO ×3 (09:22→17:09)
[2024-07-26] MEDS: PANTOPRAZOLE 40 MG TABLET PO (09:22)
[2024-07-26 09:23] VITALS: PULSE 84
[2024-07-26] MEDS: hydrOXYzine HCL 25 MG TABLET PO (09:23)
[2024-07-26] MEDS: DOCUSATE SODIUM 100 MG CAPSULE PO ×2 (09:23→17:09)
[2024-07-26] MEDS: THIAMINE HCL 100 MG TABLET PO (09:23)
[2024-07-26] MEDS: METOPROLOL SUCCINATE EXT REL 50 MG TABCR PO (09:23)
[2024-07-26] MEDS: FOLIC ACID 1 MG TABLET PO (09:23)
[2024-07-26] MEDS: lamoTRIgine 25 MG TABLET 75 MG PO ×2 (09:23→21:30)
[2024-07-26] MEDS: ASPIRIN 81 MG ENTERIC TABLET PO (09:23)
[2024-07-26] MEDS: DULoxetine HCL 30 MG CAPSULE.DR 120 MG PO (09:23)
[2024-07-26] MEDS: OPTI-GEN TAB 2 TABLET PO (09:24)
[2024-07-26] MEDS: LOSARTAN POTASSIUM 50 MG TABLET 100 MG PO (09:24)
[2024-07-26] MEDS: GABAPENTIN 300 MG CAPSULE 600 MG PO ×2 (09:24→17:09)
[2024-07-26] MEDS: ATORVASTATIN 40 MG TABLET PO (09:24)
[2024-07-26] MEDS: PRIMIDONE 50 MG TABLET PO (09:24)
[2024-07-26] MEDS: CLOPIDOGREL BISULFATE 75 MG TABLET PO (09:24)
[2024-07-26 11:25] LABS: Glucose Point of Care 180 mg/dl (65-105)
[2024-07-26 16:00] VITALS: BP 136/60; PULSE 79; RESP 18; TEMP 36.5; O2SAT 95
[2024-07-26 16:30] LABS: Glucose Point of Care 130 mg/dl (65-105)
--- NOTE | 2024-07-26 17:21 | PC.NURSE ---
Pt noted to have difficulty following direction tonight and is very slow w/ her movements. She is alert and will try to follow direction but has difficulty w/ her strength. She also is having a difficult time feeding self tonight and requires assistance w/ her feeding per this RN. ski binding fitter and repairer notified in change of mental status and abilities.
[2024-07-26] MEDS: traZODone HCL 50 MG TABLET 100 MG PO (21:29)
[2024-07-26] MEDS: amLODIPine BESYLATE 5 MG TABLET 10 MG PO (21:30)
[2024-07-26 21:46] LABS: Glucose Point of Care 135 mg/dl (65-105)
[2024-07-27] VITALS: BP 157/64; PULSE 77; RESP 18; TEMP 36.3; O2SAT 93
[2024-07-27 07:55] VITALS: BP 143/64; PULSE 80; RESP 16; TEMP 36.2; O2SAT 95
[2024-07-27 08:30] LABS: Glucose Point of Care 185 mg/dl (65-105)
[2024-07-27] MEDS: OPTI-GEN TAB 2 TABLET PO (09:10)
[2024-07-27] MEDS: lamoTRIgine 25 MG TABLET 75 MG PO ×2 (09:10→20:10)
[2024-07-27] MEDS: ASPIRIN 81 MG ENTERIC TABLET PO (09:10)
[2024-07-27] MEDS: DULoxetine HCL 30 MG CAPSULE.DR 120 MG PO (09:10)
[2024-07-27] MEDS: ATORVASTATIN 40 MG TABLET PO (09:11)
[2024-07-27] MEDS: LOSARTAN POTASSIUM 50 MG TABLET 100 MG PO (09:11)
[2024-07-27] MEDS: hydrALAZINE HCL 25 MG TABLET PO ×3 (09:11→17:11)
[2024-07-27] MEDS: ACETAMINOPHEN 500 MG TABLET PO ×2 (09:11→17:10)
[2024-07-27] MEDS: GABAPENTIN 300 MG CAPSULE 600 MG PO ×2 (09:11→17:11)
[2024-07-27 09:12] VITALS: PULSE 80
[2024-07-27] MEDS: PANTOPRAZOLE 40 MG TABLET PO (09:12)
[2024-07-27] MEDS: METOPROLOL SUCCINATE EXT REL 50 MG TABCR PO (09:12)
[2024-07-27] MEDS: ISOSORBIDE MONONITRATE 15 MG TAB.ER.24H PO (09:12)
[2024-07-27] MEDS: FOLIC ACID 1 MG TABLET PO (09:12)
[2024-07-27] MEDS: CLOPIDOGREL BISULFATE 75 MG TABLET PO (09:12)
[2024-07-27] MEDS: PRIMIDONE 50 MG TABLET PO (09:13)
[2024-07-27] MEDS: hydrOXYzine HCL 25 MG TABLET PO (09:13)
[2024-07-27] MEDS: THIAMINE HCL 100 MG TABLET PO (09:13)
[2024-07-27] MEDS: DOCUSATE SODIUM 100 MG CAPSULE PO ×2 (09:13→17:11)
[2024-07-27 11:59] LABS: Glucose Point of Care 141 mg/dl (65-105)
[2024-07-27 13:00] VITALS: BP 117/50; PULSE 70
[2024-07-27 16:35] VITALS: BP 130/58; PULSE 73; RESP 16; TEMP 36.2; O2SAT 98
[2024-07-27 17:15] LABS: Glucose Point of Care 140 mg/dl (65-105)
[2024-07-27 20:00] VITALS: PULSE 73; RESP 16; O2SAT 98
[2024-07-27] MEDS: amLODIPine BESYLATE 5 MG TABLET 10 MG PO (20:10)
[2024-07-27] MEDS: traZODone HCL 50 MG TABLET 100 MG PO (20:10)
[2024-07-27 20:16] LABS: Glucose Point of Care 195 mg/dl (65-105)
[2024-07-28] VITALS: BP 119/44; PULSE 66; RESP 16; TEMP 36.5; O2SAT 94
--- NOTE | 2024-07-28 02:33 | PC.NURSE ---
Patient stated she needed to toilet, attempted to use gait belt with walker for pivot transfer to [facility]. Patient made multiple attempts to stand, was unable to stay in standing position, unable to follow simple directions from curriculum writer for safe transfer. Felicia used.
[2024-07-28 07:45] VITALS: BP 153/66; PULSE 83; RESP 16; TEMP 36.6; O2SAT 93
[2024-07-28 08:12] LABS: Glucose Point of Care 144 mg/dl (65-105)
[2024-07-28] MEDS: DOCUSATE SODIUM 100 MG CAPSULE PO ×2 (09:02→16:52)
[2024-07-28] MEDS: PRIMIDONE 50 MG TABLET PO (09:02)
[2024-07-28] MEDS: ISOSORBIDE MONONITRATE 15 MG TAB.ER.24H PO (09:02)
[2024-07-28] MEDS: CLOPIDOGREL BISULFATE 75 MG TABLET PO (09:02)
[2024-07-28] MEDS: OPTI-GEN TAB 2 TABLET PO (09:02)
[2024-07-28 09:03] VITALS: PULSE 83
[2024-07-28] MEDS: FOLIC ACID 1 MG TABLET PO (09:03)
[2024-07-28] MEDS: METOPROLOL SUCCINATE EXT REL 50 MG TABCR PO (09:03)
[2024-07-28] MEDS: ATORVASTATIN 40 MG TABLET PO (09:03)
[2024-07-28] MEDS: ACETAMINOPHEN 500 MG TABLET PO ×2 (09:03→20:53)
[2024-07-28] MEDS: hydrOXYzine HCL 25 MG TABLET PO (09:03)
[2024-07-28] MEDS: PANTOPRAZOLE 40 MG TABLET PO (09:04)
[2024-07-28] MEDS: GABAPENTIN 300 MG CAPSULE 600 MG PO ×2 (09:04→16:52)
[2024-07-28] MEDS: lamoTRIgine 25 MG TABLET 75 MG PO ×2 (09:04→20:52)
[2024-07-28] MEDS: LOSARTAN POTASSIUM 50 MG TABLET 100 MG PO (09:04)
[2024-07-28] MEDS: DULoxetine HCL 30 MG CAPSULE.DR 120 MG PO (09:04)
[2024-07-28] MEDS: hydrALAZINE HCL 25 MG TABLET PO ×3 (09:04→16:52)
[2024-07-28] MEDS: ASPIRIN 81 MG ENTERIC TABLET PO (09:04)
[2024-07-28] MEDS: THIAMINE HCL 100 MG TABLET PO (09:04)
--- NOTE | 2024-07-28 11:45 | P.PNIM_ITS ---
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 * Resume patient's Plavix, ASA and statin * PT/OT (2) Hx of seizure disorder: Code(s): Z86.69 - Personal history of other diseases of the nervous system and sense organs Status: Acute Assessment and Plan: * continue home medication * Seizure precautions if needed (3) Gait abnormality: Code(s): R26.9 - Unspecified abnormalities of gait and mobility Status: Acute Assessment and Plan: * Deconditioned due to previous hospitalization * Secondary to CVA and seizures (4) Debilitated: Code(s): R53.81 - Other malaise Status: Acute Assessment and Plan: * PT/OT evaluate and ttreat (5) Hypertension: Qualifiers: Hypertension type: essential hypertension Qualified Code(s): I10 - Essential (primary) hypertension Code(s): I10 - Essential (primary) hypertension Status: Acute Assessment and Plan: * continue home medication * Monitor BP per protocol (6) UTI (urinary tract infection) with pyuria: Code(s): N39.0 - Urinary tract infection, site not specified Status: Acute Assessment and Plan: * cefdinir * stop on Saturday RESOLVED ABX completed Plan Code status: Full code per patient PT/OT notes: Swing bed Disposition: Patient continues admission for rehabilitation post recent subacute CVA patient progressing likely need further rehabilitation days plan is to return home following rehab. Time Spent With Patient Time with patient: 15 - 25 minutes Subjective Date/time seen: 07/28/24 11:45 Interval history: Patient is a 78-year-old female who [facility] following hospitalization for falls, UTI, and sub acute infarct of the right cerebellar hemisphere 07/28/2024: Assuming Care Patient up in chair eating breakfast states she feels as though she is progressing with physical and occupational therapy but still needs further rehab. Patient with no other complaints at this time denied any chest pain, shortness a breath, nausea, vomiting, dizziness or difficulty urinating or defecating. Review of Systems Review of Systems: weakness All systems reviewed & are unremarkable except as noted in HPI and below Exam Narrative: Physical Exam: * GENERAL: Alert and oriented x 3. No acute distress. * HEENT: Moist mucous membranes. * LUNGS: Clear to auscultation bilaterally. No accessory muscle use. * CARDIOVASCULAR: Regular rate and rhythm. No murmur. No JVD. S1-S2 * ABDOMEN: Soft, non tenderness and non-distended. No palpable masses. * EXTREMITIES: No edema. Non-tender, strength ble 2/5, 4/5 BUE * SKIN: Multiple skin tears and bruising upper extremities * NEUROLOGIC: No focal neurological deficits. CN II-XII grossly intact Objective Data Vital Signs Vital Signs: Vital Signs - 24 hr 07/27/24 16:35 07/27/24 20:00 07/28/24 00:00 Temperature 97.1 F L 97.7 F Pulse Rate 73 73 66 Respiratory Rate 16 16 16 Blood Pressure 130/58 L 119/44 L Pulse Oximetry 98 98 94 Oxygen Delivery Room Air Room Air Room Air 07/28/24 07:45 07/28/24 09:03 Temperature 97.9 F Pulse Rate 83 83 Respiratory Rate 16 Blood Pressure 153/66 H Pulse Oximetry 93 Oxygen Delivery Room Air Intake/Output Intake/Output: Intake & Output 07/25/24 07/26/24 07/27/24 07/28/24 23:59 23:59 23:59 23:59 Intake Total 881 263 4112 720 Balance 493 081 2934 720 Meds/Results Medications: Active Medications Generic Name Dose Route Start Last Admin Trade Name Freq PRN Reason Stop Dose Admin Acetaminophen 500 mg 07/20/24 17:51 07/28/24 09:03 Acetaminophen 500 Mg Tablet PO 500 mg BID PRN Administration PAIN RATED 1-3 Amlodipine Besylate 10 mg 07/20/24 21:00 07/27/24 20:10 Amlodipine Besylate 5 Mg Tablet PO 10 mg HS DORYS Administration Aspirin 81 mg 07/21/24 09:00 07/28/24 09:04 Aspirin 81 Mg Enteric Tablet PO 81 mg DAILY DORYS Administration Atorvastatin Calcium 40 mg 07/21/24 09:00 07/28/24 09:03 Atorvastatin 40 Mg Tablet PO 40 mg DAILY DORYS Administration Clopidogrel Bisulfate 75 mg 07/21/24 09:00 07/28/24 09:02 Clopidogrel Bisulfate 75 Mg Tablet PO 75 mg QAM DORYS Administration Dextrose 12.5 gm 07/21/24 12:03 Dextrose 50% 25 Gm/50 Ml Syringe IV PUSH PRN PRN Hypoglycemia Protocol Docusate Sodium 100 mg 07/20/24 18:00 07/28/24 09:02 Docusate Sodium 100 Mg Capsule PO 100 mg BID DORYS Administration Duloxetine HCl 120 mg 07/21/24 09:00 07/28/24 09:04 Duloxetine Hcl 30 Mg Capsule.Dr PO 120 mg QAM DORYS Administration Folic Acid 1 mg 07/21/24 09:00 07/28/24 09:03 Folic Acid 1 Mg Tablet PO 1 mg DAILY DORYS Administration Gabapentin 600 mg 07/20/24 18:00 07/28/24 09:04 Gabapentin 300 Mg Capsule PO 600 mg BID DORYS Administration Glucagon 1 mg 07/21/24 12:03 Glucagon For Inj 1 Mg Vial IM PRN PRN Hypoglycemia Protocol Glucose 15 gm 07/21/24 12:03 Glucose Oral Gel 15 Gm Of Glucse In 37.5 Gm Tube PO PRN PRN Hypoglycemia Protocol Hydralazine HCl 25 mg 07/20/24 18:00 07/28/24 09:04 Hydralazine Hcl 25 Mg Tablet PO 25 mg TID DORYS Administration Hydrocortisone 1 applic 07/20/24 18:00 Hydrocortisone 2.5% Cream 30 Gm Tube RECTAL DAILY PRN hemorrhoids Hydroxyzine HCl 25 mg 07/21/24 09:00 07/28/24 09:03 Hydroxyzine Hcl 25 Mg Tablet PO 25 mg QAM DORYS Administration Dextrose 1,000 mls @ 100 mls/hr 07/21/24 12:03 Dextrose 5% 1,000 Ml IVPB PRN PRN Hypoglycemia Protocol Insulin Human Lispro 3 - 6 units 07/21/24 17:00 07/28/24 08:15 Insulin Human Lispro (*Bkc) 1,000 Units/10 Ml Vial SUB-Q Not Given TIDWM DORYS Protocol Isosorbide Mononitrate 15 mg 07/21/24 09:00 07/28/24 09:02 Isosorbide Mononitrate 15 Mg Tab.Er.24h PO 15 mg DAILY DORYS Administration Lamotrigine 75 mg 07/20/24 21:00 07/28/24 09:04 Lamotrigine 25 Mg Tablet PO 75 mg Q12H DORYS Administration Losartan Potassium 100 mg 07/21/24 09:00 07/28/24 09:04 Losartan Potassium 50 Mg Tablet PO 100 mg QAM DORYS Administration Metoprolol Succinate 50 mg 07/21/24 09:00 07/28/24 09:03 Metoprolol Succinate Ext Rel 50 Mg Tabcr PO 50 mg QAM DORYS Administration Multivitamins/Minerals 2 tablet 07/21/24 09:00 07/28/24 09:02 Opti-Gen Tab PO 2 tablet QAM DORYS Administration Ondansetron HCl 4 mg 07/20/24 17:55 Ondansetron Hcl Odt 4 Mg Tablet PO Q6H PRN Nausea And Vomiting Pantoprazole Sodium 40 mg 07/21/24 09:00 07/28/24 09:04 Pantoprazole 40 Mg Tablet PO 40 mg QAM DORYS Administration Primidone 50 mg 07/21/24 09:00 07/28/24 09:02 Primidone 50 Mg Tablet PO 50 mg QAM DORYS Administration Thiamine HCl 100 mg 07/21/24 09:00 07/28/24 09:04 Thiamine Hcl 100 Mg Tablet PO 100 mg QAM DOYRS Administration Tramadol HCl 50 mg 07/20/24 17:51 07/25/24 20:58 Tramadol Hcl (*Crx) 50 Mg Tablet PO 50 mg Q6H PRN Administration PAIN RATED 4-6 Trazodone HCl 100 mg 07/20/24 21:00 07/27/24 20:10 Trazodone Hcl 50 Mg Tablet PO 100 mg HS DORYS Administration Labs Labs: Laboratory Results - last 24 hr 07/27/24 07/27/24 07/27/24 11:55 17:10 20:10 POC Capillary Glucose 141 H 140 H 195 H 07/28/24 08:11 POC Capillary Glucose 144 H Quality Pharmacological Therapy Reason anticoag or antiplatelet not ordered by end of day 2: not indicated -Patient's previous records reviewed on admission -ER notes reviewed in detail on admission -discussed all findings and current treatment plan with patient/Family/POA -Consultations reviewed for recommendations -Patient's disposition for safe discharge discussed with rn case manager hospice Dictation performed by [employer] direct speech recognition software, therefore acid etch operator variants and typographical errors may occur. Hospitalist MIPS Advance Care Plan I have confirmed that the patient's Advanced Care Plan is present, code status is documented, or surrogate decision maker is listed in patient medical record.: Yes Medication Reconciliation I have utilized all available resources to obtain, update and review the patients current medications (includes all prescriptions, OTC, herbals, cannabis, and nutritional supplements).: Yes The patient is not eligible for med reconciliation; the patient is in a emergent medical situation where delaying treatment would jeopardize the patients health.: No
[2024-07-28 11:47] LABS: Glucose Point of Care 173 mg/dl (65-105)
[2024-07-28 13:35] VITALS: BP 102/46; PULSE 68
[2024-07-28 16:35] VITALS: BP 144/51; PULSE 71; RESP 16; TEMP 36.2; O2SAT 93
[2024-07-28 16:53] LABS: Glucose Point of Care 138 mg/dl (65-105)
[2024-07-28] MEDS: traZODone HCL 50 MG TABLET 100 MG PO (20:53)
[2024-07-28] MEDS: amLODIPine BESYLATE 5 MG TABLET 10 MG PO (20:53)
[2024-07-28 21:06] LABS: Glucose Point of Care 177 mg/dl (65-105)
[2024-07-29] VITALS: BP 159/65; PULSE 72; RESP 18; TEMP 36.2; O2SAT 95
[2024-07-29 07:52] LABS: Glucose Point of Care 141 mg/dl (65-105)
[2024-07-29 08:00] VITALS: BP 166/69; PULSE 75; RESP 16; TEMP 36.3; O2SAT 94
[2024-07-29 08:18] VITALS: PULSE 75
[2024-07-29] MEDS: DOCUSATE SODIUM 100 MG CAPSULE PO ×2 (08:18→16:37)
[2024-07-29] MEDS: METOPROLOL SUCCINATE EXT REL 50 MG TABCR PO (08:18)
[2024-07-29] MEDS: ISOSORBIDE MONONITRATE 15 MG TAB.ER.24H PO (08:18)
[2024-07-29] MEDS: lamoTRIgine 25 MG TABLET 75 MG PO ×2 (08:19→20:46)
[2024-07-29] MEDS: ASPIRIN 81 MG ENTERIC TABLET PO (08:20)
[2024-07-29] MEDS: OPTI-GEN TAB 2 TABLET PO (08:20)
[2024-07-29] MEDS: ATORVASTATIN 40 MG TABLET PO (08:20)
[2024-07-29] MEDS: hydrALAZINE HCL 25 MG TABLET PO ×3 (08:20→16:36)
[2024-07-29] MEDS: CLOPIDOGREL BISULFATE 75 MG TABLET PO (08:20)
[2024-07-29] MEDS: DULoxetine HCL 30 MG CAPSULE.DR 120 MG PO (08:20)
[2024-07-29] MEDS: PANTOPRAZOLE 40 MG TABLET PO (08:20)
[2024-07-29] MEDS: hydrOXYzine HCL 25 MG TABLET PO (08:21)
[2024-07-29] MEDS: LOSARTAN POTASSIUM 50 MG TABLET 100 MG PO (08:21)
[2024-07-29] MEDS: PRIMIDONE 50 MG TABLET PO (08:21)
[2024-07-29] MEDS: FOLIC ACID 1 MG TABLET PO (08:21)
[2024-07-29] MEDS: GABAPENTIN 300 MG CAPSULE 600 MG PO ×2 (08:21→16:36)
[2024-07-29] MEDS: NICOTINE (*PBKC) 21 MG PATCH 1 PATCH TRANSDERM (08:22)
[2024-07-29] MEDS: THIAMINE HCL 100 MG TABLET PO (08:31)
[2024-07-29] MEDS: INSULIN HUMAN LISPRO (*BKC) 1,000 UNITS/10 ML VIAL SUB-Q (11:35)
[2024-07-29 11:36] LABS: Glucose Point of Care 207 mg/dl (65-105)
[2024-07-29 16:00] VITALS: BP 154/59; PULSE 78; RESP 18; TEMP 36.2; O2SAT 96
[2024-07-29] MEDS: traMADol HCL (*CRX) 50 MG TABLET PO (16:36)
[2024-07-29 16:40] LABS: Glucose Point of Care 89 mg/dl (65-105)
[2024-07-29] MEDS: MELATONIN 5 MG TABLET PO (20:47)
[2024-07-29] MEDS: ACETAMINOPHEN 500 MG TABLET PO (20:47)
[2024-07-29] MEDS: amLODIPine BESYLATE 5 MG TABLET 10 MG PO (20:48)
[2024-07-29 20:50] LABS: Glucose Point of Care 147 mg/dl (65-105)
[2024-07-30] VITALS: BP 153/60; PULSE 70; TEMP 36.6; O2SAT 94
[2024-07-30 07:22] LABS: Glucose Point of Care 137 mg/dl (65-105)
[2024-07-30 08:00] VITALS: BP 139/61; PULSE 66; RESP 16; TEMP 36.3; O2SAT 96
[2024-07-30] MEDS: OPTI-GEN TAB 2 TABLET PO (08:27)
[2024-07-30] MEDS: GABAPENTIN 300 MG CAPSULE 600 MG PO ×2 (08:28→17:03)
[2024-07-30] MEDS: DULoxetine HCL 30 MG CAPSULE.DR 120 MG PO (08:28)
[2024-07-30] MEDS: ATORVASTATIN 40 MG TABLET PO (08:29)
[2024-07-30] MEDS: hydrALAZINE HCL 25 MG TABLET PO ×3 (08:30→17:03)
[2024-07-30] MEDS: CLOPIDOGREL BISULFATE 75 MG TABLET PO (08:31)
[2024-07-30] MEDS: LOSARTAN POTASSIUM 50 MG TABLET 100 MG PO (08:32)
[2024-07-30] MEDS: PANTOPRAZOLE 40 MG TABLET PO (08:32)
[2024-07-30 08:33] VITALS: PULSE 66
[2024-07-30] MEDS: ISOSORBIDE MONONITRATE 15 MG TAB.ER.24H PO (08:33)
[2024-07-30] MEDS: METOPROLOL SUCCINATE EXT REL 50 MG TABCR PO (08:33)
[2024-07-30] MEDS: lamoTRIgine 25 MG TABLET 75 MG PO ×2 (08:33→20:40)
[2024-07-30] MEDS: PRIMIDONE 50 MG TABLET PO (08:34)
[2024-07-30] MEDS: THIAMINE HCL 100 MG TABLET PO (08:34)
[2024-07-30] MEDS: ASPIRIN 81 MG ENTERIC TABLET PO (08:34)
[2024-07-30] MEDS: NICOTINE (*PBKC) 21 MG PATCH 1 PATCH TRANSDERM (08:35)
[2024-07-30] MEDS: FOLIC ACID 1 MG TABLET PO (08:35)
--- NOTE | 2024-07-30 09:58 | PHAR ---
VERIFIED PT'S HOME MED. PT RECEIVING SAMPLES SO HAD TO SPEAK WITH PT.'S RA OFFICE ([phone]) FOR DOSING. CONFIRMED DOSE W/YURIDIA. COSENTYX [SECUKINUMAB] 300MG/2ML PEN UNOREADY INJECTION DOSE IS 300MG (2ML) SUB-Q EVERY 4 WEEKS.
[2024-07-30] MEDS: ACETAMINOPHEN 500 MG TABLET PO (10:44)
[2024-07-30] MEDS: SECUKINUMAB 1 EACH SUB-Q (11:29)
[2024-07-30 11:34] LABS: Glucose Point of Care 192 mg/dl (65-105)
[2024-07-30 16:00] VITALS: BP 158/53; PULSE 62; RESP 16; TEMP 36.1; O2SAT 95
[2024-07-30 16:43] LABS: Glucose Point of Care 132 mg/dl (65-105)
[2024-07-30] MEDS: amLODIPine BESYLATE 5 MG TABLET 10 MG PO (20:40)
[2024-07-30] MEDS: traZODone HCL 50 MG TABLET PO (20:41)
[2024-07-30] MEDS: MELATONIN 5 MG TABLET PO (20:41)
[2024-07-30 20:54] LABS: Glucose Point of Care 154 mg/dl (65-105)
[2024-07-30 23:54] VITALS: BP 143/63; PULSE 67; RESP 16; TEMP 36.4; O2SAT 92
[2024-07-31 07:33] LABS: Glucose Point of Care 141 mg/dl (65-105)
[2024-07-31] MEDS: ACETAMINOPHEN 500 MG TABLET PO (07:49)
[2024-07-31 07:52] VITALS: BP 144/52; PULSE 70; RESP 16; TEMP 36.4; O2SAT 93
[2024-07-31] MEDS: NICOTINE (*PBKC) 21 MG PATCH 1 PATCH TRANSDERM (08:12)
[2024-07-31] MEDS: lamoTRIgine 25 MG TABLET 75 MG PO ×2 (08:14→21:41)
[2024-07-31] MEDS: ISOSORBIDE MONONITRATE 15 MG TAB.ER.24H PO (08:14)
[2024-07-31] MEDS: PRIMIDONE 50 MG TABLET PO (08:14)
[2024-07-31] MEDS: FOLIC ACID 1 MG TABLET PO (08:14)
[2024-07-31] MEDS: hydrALAZINE HCL 25 MG TABLET PO ×3 (08:14→17:15)
[2024-07-31] MEDS: THIAMINE HCL 100 MG TABLET PO (08:15)
[2024-07-31] MEDS: CLOPIDOGREL BISULFATE 75 MG TABLET PO (08:15)
[2024-07-31] MEDS: LOSARTAN POTASSIUM 50 MG TABLET 100 MG PO (08:15)
[2024-07-31] MEDS: PANTOPRAZOLE 40 MG TABLET PO (08:15)
[2024-07-31] MEDS: ATORVASTATIN 40 MG TABLET PO (08:16)
[2024-07-31] MEDS: OPTI-GEN TAB 2 TABLET PO (08:16)
[2024-07-31] MEDS: DULoxetine HCL 30 MG CAPSULE.DR 120 MG PO (08:17)
[2024-07-31] MEDS: GABAPENTIN 300 MG CAPSULE 600 MG PO ×2 (08:17→17:15)
[2024-07-31 08:18] VITALS: PULSE 70
[2024-07-31] MEDS: ASPIRIN 81 MG ENTERIC TABLET PO (08:18)
[2024-07-31] MEDS: METOPROLOL SUCCINATE EXT REL 50 MG TABCR PO (08:18)
[2024-07-31 11:32] LABS: Glucose Point of Care 196 mg/dl (65-105)
[2024-07-31 16:00] VITALS: BP 146/57; PULSE 75; RESP 16; TEMP 36.3; O2SAT 97
[2024-07-31 16:36] LABS: Glucose Point of Care 99 mg/dl (65-105)
--- NOTE | 2024-07-31 18:36 | PC.NURSE ---
Addressed patient about indwelling beckman catheter for comfort during end of life care and patient stated that she doesn't want to do that until she has to. Family explained to patient that if she declines a catheter at this time, she will have to get up to use the bedside commode with assist with transfer.
[2024-07-31] MEDS: amLODIPine BESYLATE 5 MG TABLET 10 MG PO (21:41)
[2024-07-31] MEDS: MELATONIN 5 MG TABLET PO (21:41)
[2024-07-31 21:43] LABS: Glucose Point of Care 169 mg/dl (65-105)
[2024-08-01] VITALS: BP 143/56; PULSE 74; RESP 16; TEMP 36.9; O2SAT 94
[2024-08-01] MEDS: traMADol HCL (*CRX) 50 MG TABLET PO ×3 (02:50→20:04)
[2024-08-01 08:00] VITALS: BP 142/60; PULSE 72; RESP 14; TEMP 36.6; O2SAT 95
[2024-08-01 08:03] LABS: Glucose Point of Care 145 mg/dl (65-105)
[2024-08-01] MEDS: lamoTRIgine 25 MG TABLET 75 MG PO ×2 (09:15→20:04)
[2024-08-01] MEDS: OPTI-GEN TAB 2 TABLET PO (09:15)
[2024-08-01] MEDS: NICOTINE (*PBKC) 21 MG PATCH 1 PATCH TRANSDERM (09:17)
[2024-08-01] MEDS: hydrALAZINE HCL 25 MG TABLET PO ×3 (09:18→17:55)
[2024-08-01] MEDS: FOLIC ACID 1 MG TABLET PO (09:18)
[2024-08-01] MEDS: ISOSORBIDE MONONITRATE 15 MG TAB.ER.24H PO (09:18)
[2024-08-01] MEDS: GABAPENTIN 300 MG CAPSULE 600 MG PO ×2 (09:18→17:55)
[2024-08-01 09:19] VITALS: PULSE 72
[2024-08-01] MEDS: CLOPIDOGREL BISULFATE 75 MG TABLET PO (09:19)
[2024-08-01] MEDS: DULoxetine HCL 30 MG CAPSULE.DR 120 MG PO (09:19)
[2024-08-01] MEDS: PANTOPRAZOLE 40 MG TABLET PO (09:19)
[2024-08-01] MEDS: ATORVASTATIN 40 MG TABLET PO (09:19)
[2024-08-01] MEDS: METOPROLOL SUCCINATE EXT REL 50 MG TABCR PO (09:19)
[2024-08-01] MEDS: PRIMIDONE 50 MG TABLET PO (09:20)
[2024-08-01] MEDS: LOSARTAN POTASSIUM 50 MG TABLET 100 MG PO (09:20)
[2024-08-01] MEDS: THIAMINE HCL 100 MG TABLET PO (09:20)
[2024-08-01] MEDS: ASPIRIN 81 MG ENTERIC TABLET PO (09:20)
[2024-08-01 12:02] LABS: Glucose Point of Care 198 mg/dl (65-105)
--- NOTE | 2024-08-01 13:30 | PC.NURSE ---
Tramadol given for pain. Medication would not scan.
[2024-08-01 16:30] VITALS: BP 141/57; PULSE 63; RESP 16; TEMP 36.2; O2SAT 94
[2024-08-01 17:02] LABS: Glucose Point of Care 108 mg/dl (65-105)
[2024-08-01] MEDS: amLODIPine BESYLATE 5 MG TABLET 10 MG PO (20:03)
[2024-08-01] MEDS: traZODone HCL 50 MG TABLET PO (20:04)
[2024-08-01 20:21] LABS: Glucose Point of Care 177 mg/dl (65-105)
[2024-08-02] VITALS: BP 111/58; PULSE 66; RESP 18; TEMP 36.6; O2SAT 93
[2024-08-02 08:00] VITALS: BP 152/60; PULSE 66; RESP 12; TEMP 36.3; O2SAT 94
[2024-08-02 08:06] LABS: Glucose Point of Care 139 mg/dl (65-105)
[2024-08-02] MEDS: lamoTRIgine 25 MG TABLET 75 MG PO ×2 (09:09→20:22)
[2024-08-02 09:10] VITALS: PULSE 66
[2024-08-02] MEDS: PANTOPRAZOLE 40 MG TABLET PO (09:10)
[2024-08-02] MEDS: GABAPENTIN 300 MG CAPSULE 600 MG PO ×2 (09:10→18:01)
[2024-08-02] MEDS: METOPROLOL SUCCINATE EXT REL 50 MG TABCR PO (09:10)
[2024-08-02] MEDS: DULoxetine HCL 30 MG CAPSULE.DR 120 MG PO (09:11)
[2024-08-02] MEDS: OPTI-GEN TAB 2 TABLET PO (09:11)
[2024-08-02] MEDS: NICOTINE (*PBKC) 21 MG PATCH 1 PATCH TRANSDERM (09:11)
[2024-08-02] MEDS: ATORVASTATIN 40 MG TABLET PO (09:11)
[2024-08-02] MEDS: traMADol HCL (*CRX) 50 MG TABLET PO ×2 (09:12→20:22)
[2024-08-02] MEDS: PRIMIDONE 50 MG TABLET PO (09:13)
[2024-08-02] MEDS: LOSARTAN POTASSIUM 50 MG TABLET 100 MG PO (09:13)
[2024-08-02] MEDS: THIAMINE HCL 100 MG TABLET PO (09:13)
[2024-08-02] MEDS: ISOSORBIDE MONONITRATE 15 MG TAB.ER.24H PO (09:13)
[2024-08-02] MEDS: CLOPIDOGREL BISULFATE 75 MG TABLET PO (09:13)
[2024-08-02] MEDS: hydrALAZINE HCL 25 MG TABLET PO ×3 (09:14→18:01)
[2024-08-02] MEDS: FOLIC ACID 1 MG TABLET PO (09:14)
[2024-08-02] MEDS: ASPIRIN 81 MG ENTERIC TABLET PO (09:14)
[2024-08-02 11:49] LABS: Glucose Point of Care 169 mg/dl (65-105)
[2024-08-02 16:30] VITALS: BP 143/50; PULSE 65; RESP 16; TEMP 36.4; O2SAT 94
[2024-08-02 16:44] LABS: Glucose Point of Care 111 mg/dl (65-105)
[2024-08-02] MEDS: traZODone HCL 50 MG TABLET PO (20:22)
[2024-08-02] MEDS: hydrOXYzine HCL 25 MG TABLET PO (20:22)
[2024-08-02] MEDS: amLODIPine BESYLATE 5 MG TABLET 10 MG PO (20:22)
[2024-08-02 20:37] LABS: Glucose Point of Care 134 mg/dl (65-105)
[2024-08-03] VITALS: BP 162/57; PULSE 70; RESP 18; TEMP 36.2; O2SAT 93
[2024-08-03 07:40] LABS: Glucose Point of Care 120 mg/dl (65-105)
[2024-08-03 07:55] VITALS: BP 147/61; PULSE 66; RESP 16; TEMP 36.2; O2SAT 94
[2024-08-03] MEDS: NICOTINE (*PBKC) 21 MG PATCH 1 PATCH TRANSDERM (08:19)
[2024-08-03] MEDS: lamoTRIgine 25 MG TABLET 75 MG PO ×2 (08:20→20:32)
[2024-08-03 08:21] VITALS: PULSE 66
[2024-08-03] MEDS: ISOSORBIDE MONONITRATE 15 MG TAB.ER.24H PO (08:21)
[2024-08-03] MEDS: METOPROLOL SUCCINATE EXT REL 50 MG TABCR PO (08:21)
[2024-08-03] MEDS: ASPIRIN 81 MG ENTERIC TABLET PO (08:21)
[2024-08-03] MEDS: FOLIC ACID 1 MG TABLET PO (08:21)
[2024-08-03] MEDS: PRIMIDONE 50 MG TABLET PO (08:22)
[2024-08-03] MEDS: hydrALAZINE HCL 25 MG TABLET PO ×3 (08:22→16:21)
[2024-08-03] MEDS: GABAPENTIN 300 MG CAPSULE 600 MG PO ×2 (08:24→16:20)
[2024-08-03] MEDS: OPTI-GEN TAB 2 TABLET PO (08:24)
[2024-08-03] MEDS: DULoxetine HCL 30 MG CAPSULE.DR 120 MG PO (08:25)
[2024-08-03] MEDS: LOSARTAN POTASSIUM 50 MG TABLET 100 MG PO (08:26)
[2024-08-03] MEDS: PANTOPRAZOLE 40 MG TABLET PO (08:27)
[2024-08-03] MEDS: ATORVASTATIN 40 MG TABLET PO (08:27)
[2024-08-03] MEDS: CLOPIDOGREL BISULFATE 75 MG TABLET PO (08:27)
[2024-08-03] MEDS: THIAMINE HCL 100 MG TABLET PO (08:27)
[2024-08-03 11:29] LABS: Glucose Point of Care 162 mg/dl (65-105)
[2024-08-03 16:00] VITALS: BP 140/57; PULSE 61; RESP 16; TEMP 36.4; O2SAT 95
[2024-08-03 16:30] LABS: Glucose Point of Care 142 mg/dl (65-105)
[2024-08-03] MEDS: MELATONIN 5 MG TABLET PO (20:32)
[2024-08-03] MEDS: amLODIPine BESYLATE 5 MG TABLET 10 MG PO (20:32)
[2024-08-03] MEDS: traZODone HCL 50 MG TABLET PO (20:33)
[2024-08-03 20:44] LABS: Glucose Point of Care 169 mg/dl (65-105)
[2024-08-04] VITALS: BP 143/61; PULSE 65; RESP 16; TEMP 36.4; O2SAT 94
[2024-08-04 07:34] LABS: Glucose Point of Care 156 mg/dl (65-105)
[2024-08-04 07:49] VITALS: BP 143/50; PULSE 65; RESP 16; TEMP 36.1; O2SAT 92
[2024-08-04] MEDS: NICOTINE (*PBKC) 21 MG PATCH 1 PATCH TRANSDERM (08:03)
[2024-08-04] MEDS: lamoTRIgine 25 MG TABLET 75 MG PO ×2 (08:04→20:42)
[2024-08-04] MEDS: DULoxetine HCL 30 MG CAPSULE.DR 120 MG PO (08:05)
[2024-08-04] MEDS: LOSARTAN POTASSIUM 50 MG TABLET 100 MG PO (08:06)
[2024-08-04 08:07] VITALS: PULSE 65
[2024-08-04] MEDS: METOPROLOL SUCCINATE EXT REL 50 MG TABCR PO (08:07)
[2024-08-04] MEDS: ISOSORBIDE MONONITRATE 15 MG TAB.ER.24H PO (08:07)
[2024-08-04] MEDS: ASPIRIN 81 MG ENTERIC TABLET PO (08:08)
[2024-08-04] MEDS: PRIMIDONE 50 MG TABLET PO (08:08)
[2024-08-04] MEDS: GABAPENTIN 300 MG CAPSULE 600 MG PO ×2 (08:09→16:25)
[2024-08-04] MEDS: OPTI-GEN TAB 2 TABLET PO (08:09)
[2024-08-04] MEDS: ATORVASTATIN 40 MG TABLET PO (08:10)
[2024-08-04] MEDS: PANTOPRAZOLE 40 MG TABLET PO (08:10)
[2024-08-04] MEDS: hydrALAZINE HCL 25 MG TABLET PO ×3 (08:10→16:25)
[2024-08-04] MEDS: CLOPIDOGREL BISULFATE 75 MG TABLET PO (08:11)
[2024-08-04] MEDS: THIAMINE HCL 100 MG TABLET PO (08:11)
[2024-08-04] MEDS: FOLIC ACID 1 MG TABLET PO (08:13)
[2024-08-04 11:44] LABS: Glucose Point of Care 152 mg/dl (65-105)
[2024-08-04] MEDS: traMADol HCL (*CRX) 50 MG TABLET PO ×2 (13:37→20:42)
--- NOTE | 2024-08-04 13:52 | P.PNIM_ITS ---
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 * Resume patient's Plavix, ASA and statin * PT/OT (2) Hx of seizure disorder: Code(s): Z86.69 - Personal history of other diseases of the nervous system and sense organs Status: Acute Assessment and Plan: * continue home medication * Seizure precautions if needed (3) Gait abnormality: Code(s): R26.9 - Unspecified abnormalities of gait and mobility Status: Acute Assessment and Plan: * Deconditioned due to previous hospitalization * Secondary to CVA and seizures (4) Debilitated: Code(s): R53.81 - Other malaise Status: Acute Assessment and Plan: * PT/OT evaluate and ttreat (5) Hypertension: Qualifiers: Hypertension type: essential hypertension Qualified Code(s): I10 - Essential (primary) hypertension Code(s): I10 - Essential (primary) hypertension Status: Acute Assessment and Plan: * continue home medication * Monitor BP per protocol (6) UTI (urinary tract infection) with pyuria: Code(s): N39.0 - Urinary tract infection, site not specified Status: Acute Assessment and Plan: * cefdinir * stop on Saturday RESOLVED ABX completed Plan Code status: Full code per patient PT/OT notes: Swing bed Disposition: Patient continues admission for rehabilitation post recent subacute CVA patient progressing but unclear if she is safe to discharge home. Her indicated that he needs to be able to leave her for short periods of time and she likely would not be safe if left alone. She is having a care conference today 11 am. Subjective Date/time seen: 08/04/24 13:52 Interval history: Blanca is doing well. She has no complaints. She says she is ready to leave. She had a near fall on Saturday ambulating back from the bathroom. She has intermittent episodes where she difficulty following instruction. She also has moments where she becomes more confused in the evening. Review of Systems Review of Systems: All systems reviewed & are unremarkable except as noted in HPI and below Exam Narrative: General: appears comfortable, in no acute distress Respiratory: breathing is unlabored with even chest rise/fall, lungs are clear without wheezing, rhonchi, and crackles Cardiovascular: Rate and rhythm regular, normal s1s2, no murmur Abdomen: Soft, round, non-tender, active bowel sounds Extremities: No cyanosis, edema, clubbing. Pulses 2/2 Neuro: A&O x 3 Skin: Warm, dry, intact Objective Data Vital Signs Vital Signs: Vital Signs - 24 hr 08/03/24 16:00 08/04/24 00:00 08/04/24 07:49 Temperature 97.6 F 97.6 F Pulse Rate 61 65 65 Respiratory Rate 16 16 16 Blood Pressure 140/57 L 143/61 H Pulse Oximetry 95 94 92 Oxygen Delivery Room Air Room Air Room Air 08/04/24 07:49 08/04/24 08:07 Temperature 97.0 F L Pulse Rate 65 65 Respiratory Rate 16 Blood Pressure 143/50 H Pulse Oximetry 92 Oxygen Delivery Room Air Intake/Output Intake/Output: Intake & Output 08/01/24 08/02/24 08/03/24 08/04/24 23:59 23:59 23:59 23:59 Intake Total 1617 944 1925 1660 Output Total 1350 1175 1000 Balance 1570 -500 420 660 Meds/Results Medications: Active Medications Generic Name Dose Route Start Last Admin Trade Name Freq PRN Reason Stop Dose Admin Acetaminophen 500 mg 07/20/24 17:51 07/31/24 07:49 Acetaminophen 500 Mg Tablet PO 500 mg BID PRN Administration PAIN RATED 1-3 Amlodipine Besylate 10 mg 07/20/24 21:00 08/03/24 20:32 Amlodipine Besylate 5 Mg Tablet PO 10 mg HS DORYS Administration Aspirin 81 mg 07/21/24 09:00 08/04/24 08:08 Aspirin 81 Mg Enteric Tablet PO 81 mg DAILY DORYS Administration Atorvastatin Calcium 40 mg 07/21/24 09:00 08/04/24 08:10 Atorvastatin 40 Mg Tablet PO 40 mg DAILY DORYS Administration Clopidogrel Bisulfate 75 mg 07/21/24 09:00 08/04/24 08:11 Clopidogrel Bisulfate 75 Mg Tablet PO 75 mg QAM DORYS Administration Dextrose 12.5 gm 07/21/24 12:03 Dextrose 50% 25 Gm/50 Ml Syringe IV PUSH PRN PRN Hypoglycemia Protocol Docusate Sodium 100 mg 07/29/24 17:09 Docusate Sodium 100 Mg Capsule PO BID PRN Constipation Duloxetine HCl 120 mg 07/21/24 09:00 08/04/24 08:05 Duloxetine Hcl 30 Mg Capsule.Dr PO 120 mg QAM DORYS Administration Folic Acid 1 mg 07/21/24 09:00 08/04/24 08:13 Folic Acid 1 Mg Tablet PO 1 mg DAILY DORYS Administration Gabapentin 600 mg 07/20/24 18:00 08/04/24 08:09 Gabapentin 300 Mg Capsule PO 600 mg BID DORYS Administration Glucagon 1 mg 07/21/24 12:03 Glucagon For Inj 1 Mg Vial IM PRN PRN Hypoglycemia Protocol Glucose 15 gm 07/21/24 12:03 Glucose Oral Gel 15 Gm Of Glucse In 37.5 Gm Tube PO PRN PRN Hypoglycemia Protocol Hydralazine HCl 25 mg 07/20/24 18:00 08/04/24 12:31 Hydralazine Hcl 25 Mg Tablet PO 25 mg TID DORYS Administration Hydrocortisone 1 applic 07/20/24 18:00 Hydrocortisone 2.5% Cream 30 Gm Tube RECTAL DAILY PRN hemorrhoids Hydroxyzine HCl 25 mg 07/30/24 08:11 08/02/24 20:22 Hydroxyzine Hcl 25 Mg Tablet PO 25 mg DAILY PRN Administration anxiety Dextrose 1,000 mls @ 100 mls/hr 07/21/24 12:03 Dextrose 5% 1,000 Ml IVPB PRN PRN Hypoglycemia Protocol Insulin Human Lispro 3 - 6 units 07/21/24 17:00 08/04/24 12:07 Insulin Human Lispro (*Bkc) 1,000 Units/10 Ml Vial SUB-Q Not Given TIDWM DORYS Protocol Isosorbide Mononitrate 15 mg 07/21/24 09:00 08/04/24 08:07 Isosorbide Mononitrate 15 Mg Tab.Er.24h PO 15 mg DAILY DORYS Administration Lamotrigine 75 mg 07/20/24 21:00 08/04/24 08:04 Lamotrigine 25 Mg Tablet PO 75 mg Q12H DORYS Administration Losartan Potassium 100 mg 07/21/24 09:00 08/04/24 08:06 Losartan Potassium 50 Mg Tablet PO 100 mg QAM DORYS Administration Melatonin 5 mg 07/29/24 10:46 08/03/24 20:32 Melatonin 5 Mg Tablet PO 5 mg HS PRN Administration insomnia Metoprolol Succinate 50 mg 07/21/24 09:00 08/04/24 08:07 Metoprolol Succinate Ext Rel 50 Mg Tabcr PO 50 mg QAM DORYS Administration Multivitamins/Minerals 2 tablet 07/21/24 09:00 08/04/24 08:09 Opti-Gen Tab PO 2 tablet QAM DORYS Administration Nicotine 1 patch 07/29/24 09:00 08/04/24 08:03 Nicotine (*Pbkc) 21 Mg Patch TRANSDERM 1 patch DAILY DORYS Administration Nonformulary Drug ( 1 each 07/30/24 12:00 07/30/24 11:29 Cosentyx [ SUB-Q 08/29/24 11:59 1 each Secukinumab] 300mg/ [id number] DORYS Administration 2ml Unoready Pen Injection) Ondansetron HCl 4 mg 07/20/24 17:55 Ondansetron Hcl Odt 4 Mg Tablet PO Q6H PRN Nausea And Vomiting Pantoprazole Sodium 40 mg 07/21/24 09:00 08/04/24 08:10 Pantoprazole 40 Mg Tablet PO 40 mg QAM DORYS Administration Primidone 50 mg 07/21/24 09:00 08/04/24 08:08 Primidone 50 Mg Tablet PO 50 mg QAM DORYS Administration Thiamine HCl 100 mg 07/21/24 09:00 08/04/24 08:11 Thiamine Hcl 100 Mg Tablet PO 100 mg QAM DORYS Administration Tramadol HCl 50 mg 07/20/24 17:51 08/04/24 13:37 Tramadol Hcl (*Crx) 50 Mg Tablet PO 50 mg Q6H PRN Administration PAIN RATED 4-6 Trazodone HCl 50 mg 07/29/24 10:46 08/03/24 20:33 Trazodone Hcl 50 Mg Tablet PO 50 mg HS PRN Administration insomnia Labs Labs: Laboratory Results - last 24 hr 08/03/24 08/03/24 08/04/24 16:19 20:38 07:29 POC Capillary Glucose 142 H 169 H 156 H 08/04/24 11:37 POC Capillary Glucose 152 H
[2024-08-04 16:00] VITALS: BP 145/47; PULSE 62; RESP 16; TEMP 36.1; O2SAT 95
[2024-08-04 16:28] LABS: Glucose Point of Care 137 mg/dl (65-105)
[2024-08-04] MEDS: amLODIPine BESYLATE 5 MG TABLET 10 MG PO (20:41)
[2024-08-04] MEDS: MELATONIN 5 MG TABLET PO (20:43)
[2024-08-04] MEDS: traZODone HCL 50 MG TABLET PO (20:43)
[2024-08-04 20:53] LABS: Glucose Point of Care 206 mg/dl (65-105)
[2024-08-05] VITALS: BP 148/59; PULSE 69; RESP 16; TEMP 36.9; O2SAT 97
[2024-08-05 08:00] VITALS: BP 134/47; PULSE 64; RESP 12; TEMP 36.2; O2SAT 93
[2024-08-05 08:02] LABS: Glucose Point of Care 151 mg/dl (65-105)
[2024-08-05] MEDS: PANTOPRAZOLE 40 MG TABLET PO (09:26)
[2024-08-05] MEDS: DOCUSATE SODIUM 100 MG CAPSULE PO (09:26)
[2024-08-05] MEDS: LOSARTAN POTASSIUM 50 MG TABLET 100 MG PO (09:26)
[2024-08-05] MEDS: DULoxetine HCL 30 MG CAPSULE.DR 120 MG PO (09:26)
[2024-08-05] MEDS: ISOSORBIDE MONONITRATE 15 MG TAB.ER.24H PO (09:26)
[2024-08-05] MEDS: GABAPENTIN 300 MG CAPSULE 600 MG PO ×2 (09:27→17:16)
[2024-08-05] MEDS: hydrALAZINE HCL 25 MG TABLET PO ×3 (09:27→17:17)
[2024-08-05] MEDS: OPTI-GEN TAB 2 TABLET PO (09:27)
[2024-08-05] MEDS: lamoTRIgine 25 MG TABLET 75 MG PO ×2 (09:27→20:17)
[2024-08-05 09:28] VITALS: PULSE 83
[2024-08-05] MEDS: ATORVASTATIN 40 MG TABLET PO (09:28)
[2024-08-05] MEDS: FOLIC ACID 1 MG TABLET PO (09:28)
[2024-08-05] MEDS: ASPIRIN 81 MG ENTERIC TABLET PO (09:28)
[2024-08-05] MEDS: PRIMIDONE 50 MG TABLET PO (09:28)
[2024-08-05] MEDS: CLOPIDOGREL BISULFATE 75 MG TABLET PO (09:28)
[2024-08-05] MEDS: THIAMINE HCL 100 MG TABLET PO (09:28)
[2024-08-05] MEDS: METOPROLOL SUCCINATE EXT REL 50 MG TABCR PO (09:28)
[2024-08-05] MEDS: NICOTINE (*PBKC) 21 MG PATCH 1 PATCH TRANSDERM (09:29)
[2024-08-05 11:59] LABS: Glucose Point of Care 156 mg/dl (65-105)
[2024-08-05 16:00] VITALS: BP 169/72; PULSE 69; RESP 16; TEMP 36.2; O2SAT 95
[2024-08-05 17:17] LABS: Glucose Point of Care 132 mg/dl (65-105)
--- NOTE | 2024-08-05 17:47 | PC.NURSE ---
Patient in bed with bed alarm on. Able to feed self dinner. Denies pain. Pleasant and cooperative. SR up x2. Call light and belongings within reach.
[2024-08-05] MEDS: amLODIPine BESYLATE 5 MG TABLET 10 MG PO (20:17)
[2024-08-05] MEDS: traMADol HCL (*CRX) 50 MG TABLET PO (20:18)
[2024-08-05] MEDS: MELATONIN 5 MG TABLET PO (20:18)
[2024-08-05] MEDS: traZODone HCL 50 MG TABLET PO (20:18)
[2024-08-05 20:21] LABS: Glucose Point of Care 233 mg/dl (65-105)
[2024-08-05 23:10] VITALS: BP 138/53; PULSE 68; RESP 16; TEMP 36.3; O2SAT 93
[2024-08-06 08:00] VITALS: BP 142/56; PULSE 75; RESP 14; TEMP 36.6; O2SAT 94
[2024-08-06 08:04] LABS: Glucose Point of Care 140 mg/dl (65-105)
[2024-08-06 09:38] VITALS: PULSE 75
[2024-08-06] MEDS: OPTI-GEN TAB 2 TABLET PO (09:38)
[2024-08-06] MEDS: METOPROLOL SUCCINATE EXT REL 50 MG TABCR PO (09:38)
[2024-08-06] MEDS: NICOTINE (*PBKC) 21 MG PATCH 1 PATCH TRANSDERM (09:38)
[2024-08-06] MEDS: ATORVASTATIN 40 MG TABLET PO (09:39)
[2024-08-06] MEDS: GABAPENTIN 300 MG CAPSULE 600 MG PO (09:39)
[2024-08-06] MEDS: DULoxetine HCL 30 MG CAPSULE.DR 120 MG PO (09:39)
[2024-08-06] MEDS: lamoTRIgine 25 MG TABLET 75 MG PO (09:39)
[2024-08-06] MEDS: PANTOPRAZOLE 40 MG TABLET PO (09:39)
[2024-08-06] MEDS: CLOPIDOGREL BISULFATE 75 MG TABLET PO (09:40)
[2024-08-06] MEDS: ASPIRIN 81 MG ENTERIC TABLET PO (09:40)
[2024-08-06] MEDS: ISOSORBIDE MONONITRATE 15 MG TAB.ER.24H PO (09:40)
[2024-08-06] MEDS: LOSARTAN POTASSIUM 50 MG TABLET 100 MG PO (09:40)
[2024-08-06] MEDS: FOLIC ACID 1 MG TABLET PO (09:40)
[2024-08-06] MEDS: PRIMIDONE 50 MG TABLET PO (09:40)
[2024-08-06] MEDS: hydrALAZINE HCL 25 MG TABLET PO (09:40)
[2024-08-06] MEDS: THIAMINE HCL 100 MG TABLET PO (09:41)
--- NOTE | 2024-08-06 09:57 | P.DS_ITS ---
DS: Admitting Diagnosis Discharge Date 08/06/2024 Admitting Diagnosis rehabilitation for generalized weakness post hospitalization DS: Discharge Diagnosis Discharge Diagnosis (1) History of CVA (cerebrovascular accident): Code(s): Z86.73 - Personal history of transient ischemic attack (TIA), and cerebral infarction without residual deficits Status: Acute (2) Hx of seizure disorder: Code(s): Z86.69 - Personal history of other diseases of the nervous system and sense organs Status: Acute (3) Gait abnormality: Code(s): R26.9 - Unspecified abnormalities of gait and mobility Status: Acute (4) Debilitated: Code(s): R53.81 - Other malaise Status: Acute (5) Hypertension: Qualifiers: Hypertension type: essential hypertension Qualified Code(s): I10 - Essential (primary) hypertension Code(s): I10 - Essential (primary) hypertension Status: Acute (6) UTI (urinary tract infection) with pyuria: Code(s): N39.0 - Urinary tract infection, site not specified Status: Acute Plan Code status: Full code per patient PT/OT notes: nursing home facility Disposition: patient was discharged to [facility] nursing [facility] for continued rehabilitation DS: Summary Hospital Course Reason for hospitalization: rehabilitation for generalized weakness post hospitalization Hospital Course: This was a 78 year old that has come to [facility] for swing bed for therapy. Patient had been falling at home frequently and was found to have a urinary tract infection with history of seizures. Patient was admitted to [facility] initially for falls, UTI, and hypertension. During her hospitalization she was found to have and old and subacute infarction. Patient was transferred to [facility] swing bed for further rehabilitation. Patient continued to progress but was not at baseline to return home still was needed assistance with ADL's and mobility at that time it was decided she needed further physical and occupational therapy prior to returning home patient and family agreed to [facility] skilled [facility] for ongoing rehab. Status at Discharge Functional status at discharge: uses cane/walker Overall status at discharge: patient is progressing back to baseline Time Spent with Patient Time attestation: Total time spent providing and/or coordinating discharge services: Exam Narrative: General: appears comfortable, in no acute distress Respiratory: breathing is unlabored with even chest rise/fall, lungs are clear without wheezing, rhonchi, and crackles Cardiovascular: Rate and rhythm regular, normal s1s2, no murmur Abdomen: Soft, round, non-tender, active bowel sounds Extremities: No cyanosis, edema, clubbing. Pulses 2/2 Neuro: A&O x 3 Skin: Warm, dry, intact DS: Data Data Completed and Pending Labs on day of discharge: Labs from last 24 hours 08/06/24 08/05/24 08/05/24 07:56 20:15 17:15 POC Capillary Glucose 140 H 233 H 132 H 08/05/24 11:51 POC Capillary Glucose 156 H Discharge Plan Discharge Attending physician on discharge: Geo Menard Consulting providers: Ezio Mayo; Della Samaniego; Angela Beck Discharging Clinician: Della Samaniego Anticipated Discharge Date/Time: 08/06/24 09:39 Patient Disposition: SNF Activity: as tolerated Diet: heart healthy Discharge Instructions: You are being discharged to a nursing home facility for continued rehabilitation following a recent hospitalization for acute UTI, hypertension, diabetes, history of seizures and history of CVA. Per previous hospital notes she had completed your antibiotic therapy for urinary tract infection and since then your blood pressure has been moderately well controlled, I would recommend continued monitoring of blood pressure. How can you care for yourself at home? ? Keep track of any new symptoms or changes in your symptoms. ? Rest until you feel better. ? Be safe with medicines. Take your medicines exactly as prescribed. Call your doctor if you think you are having a problem with your medicine. ? Do not drive after taking a prescription pain medicine. ? Ensure to follow-up with primary care physician as indicated and provide updated medication list provided to you at discharge. When should you call for help? Call 911 anytime you think you may need emergency care. For example, call if: ? You passed out (lost consciousness). Call your doctor now or seek immediate medical care if: ? You have new symptoms like fever, difficulty breathing, Chest pain, vomiting, or rash. ? You have new or different pain. ? You are confused and are having trouble thinking clearly. ? Your symptoms are getting worse. Watch closely for changes in your health, and be sure to contact your doctor if: ? You do not get better as expected. Patient Instructions: Tramadol (By mouth), Secukinumab (By injection), Fall Prevention for Older Adults (DC) Patient Language: Sami Stand Alone Forms: General Discharge Information, Mcfp Discharge Follow-up/Referrals: Hugh Mendez MD [Primary Care Provider] - Call for Appointment (Call to schedule after Rehab) Discharge Medications: New nicotine [Nicoderm CQ] 21 mg/24 hr Patch 24 Hour 1 patch transdermal DAILY Qty: 10 0RF Continued Cosentyx Pen 150 mg/mL Pen Injector 300 mg SUBCUT [id number] Patient Comments: DOSE DUE 07/30 trazodone 50 mg tablet 100 mg PO HS Qty: 60 1RF tramadol 50 mg tablet 50 mg PO Q6H PRN (Reason: pain) Qty: 20 0RF pantoprazole 40 mg tablet,delayed release (DR/EC) 40 mg PO QAM Atorvastatin [Lipitor] 40 mg PO DAILY Qty: 30 0RF isosorbide mononitrate 30 mg tablet extended release 24 hr 15 mg PO DAILY Qty: 30 0RF primidone 50 mg tablet 50 mg PO QAM aspirin 81 mg Tablet,Delayed Release (Dr/Ec) 81 mg PO DAILY lamotrigine 25 mg tablet 75 mg PO Q12H metoprolol succinate 50 mg tablet extended release 24 hr 50 mg PO QAM amlodipine [Norvasc] 5 mg tablet 10 mg PO HS Qty: 180 3RF duloxetine 60 mg capsule,delayed release(DR/EC) 120 mg PO QAM Qty: 90 1RF hydrocortisone [Anusol-HC] 2.5 % cream with perineal applicator 1 applic RECTAL DAILY PRN (Reason: hemorrhoids) Qty: 30 0RF losartan 100 mg tablet 100 mg PO DAILY Qty: 90 3RF thiamine HCl (vitamin B1) [Vitamin B-1] 100 mg Tablet 100 mg PO QAM Qty: 30 0RF hydralazine 25 mg Tablet 25 mg PO TID Qty: 90 0RF clopidogrel 75 mg Tablet 75 mg PO QAM Qty: 30 0RF docusate sodium 100 mg Capsule 100 mg PO BID Qty: 60 0RF folic acid 1 mg Tablet 1 mg PO DAILY Qty: 30 0RF hydroxyzine HCl 25 mg Tablet 25 mg PO QAM Qty: 30 0RF Ocuvite with Lutein 300 mcg-200 mg-27 mg-2 mg Tablet 2 tablet PO QAM Qty: 60 0RF acetaminophen 500 mg Tablet 500 mg PO BID PRN (Reason: pain) Qty: 30 0RF gabapentin 300 mg capsule 600 mg PO BID Qty: 270 1RF Discontinued amoxicillin 500 mg Capsule 500 mg PO Q8HR Qty: 12 0RF lorazepam 0.5 mg tablet 0.5 mg PO TID PRN (Reason: anxiety) Qty: 90 0RF Date of admission: 07/20/24 16:44 Primary Care Provider: Hugh Mendez Admitting Provider: Geo Menard Attending physician on admission: Della Samaniego Condition: Stable Quality -Patient's previous records reviewed on admission -ER notes reviewed in detail on admission -discussed all findings and current treatment plan with patient/Family/POA -Consultations reviewed for recommendations -Patient's disposition for safe discharge discussed with lead case manager Dictation performed by P21 direct speech recognition software, therefore flavoring maker variants and typographical errors may occur. Hospitalist MIPS Heart Failure (Exclusion) Patient has history of Heart Transplant or Left Ventricular Assistive Device?: No IF YES, STOP HERE Heart Failure (Qualifier) Patient has current or prior documentation of LVEF less than or equal to 40%, or mod/servere depressed LVSF?: No IF NO, STOP HERE
--- NOTE | 2024-08-06 11:30 | PC.NURSE ---
Pt discharged to [facility]. Pt's is taking her there by family car. RN reviewed discharge instructions with pt and spouse. Discharge instructions placed in [facility] envoloe and sent with pt. All medications were reviewed. Pt taken to the family car via WC by RN.
--- NOTE | 2024-08-10 09:58 | PC.NURSE ---
DC to [facility], no questions regarding dc instructions
== END 2024-08-06 11:00 | DRG 948 ==
PROVIDERS: Admitting Provider Internal Medicine; PCP Emergency Medicine; Visit Provider Nurse Practitioner Family
DX: R53.1 Weakness (principal); N39.0 Urinary tract infection, site not specified; E11.9 Type 2 diabetes mellitus without complications; I10 Essential (primary) hypertension; J44.9 Chronic obstructive pulmonary disease, unspecified; E53.8 Deficiency of other specified B group vitamins; E78.2 Mixed hyperlipidemia; E11.42 Type 2 diabetes mellitus with diabetic polyneuropathy; R56.9 Unspecified convulsions; K57.30 Diverticulosis of large intestine without perforation or abscess without bleeding; R29.6 Repeated falls; K21.9 Gastro-esophageal reflux disease without esophagitis; K76.0 Fatty (change of) liver, not elsewhere classified; L40.9 Psoriasis, unspecified; M06.09 Rheumatoid arthritis without rheumatoid factor, multiple sites; M45.9 Ankylosing spondylitis of unspecified sites in spine; M81.0 Age-related osteoporosis without current pathological fracture; M16.0 Bilateral primary osteoarthritis of hip; G89.29 Other chronic pain; G47.33 Obstructive sleep apnea (adult) (pediatric); H35.30 Unspecified macular degeneration; F41.9 Anxiety disorder, unspecified; F17.210 Nicotine dependence, cigarettes, uncomplicated; Z79.82 Long term (current) use of aspirin; Z79.02 Long term (current) use of antithrombotics/antiplatelets; Z86.73 Personal history of transient ischemic attack (TIA), and cerebral infarction without residual deficits
CPT/HCPCS: 82948; 97110; 97112; 97161; 97166; 97530; 97535; A9270; J1815

== ENCOUNTER 2024-08-07 10:08 | Emergency (ER) | payer MEDICARE, OTHER, SELFPAY ==
[2024-08-07] VITALS (8 sets, daily range): BP systolic 129–169; BP diastolic 56–77; PULSE 58–73; RESP 13–20; TEMP 36.4–36.6; O2SAT 97–100
--- NOTE | ~2024-08-07 | XR_ITS ---
EXAMINATION: XR chest 1V DATE: 08/07/2024 10:36 INDICATION: Presyncope TECHNIQUE: frontal view of the chest was obtained. COMPARISON: Chest radiograph dated 07/16/2024 FINDINGS: Normal streaky atelectasis at the bilateral lung bases. No other airspace opacities, pulmonary edema, pleural effusion or pneumothorax. The cardiomediastinal silhouette is normal. Lumbar dextroscoliosis with severe spondylosis. Moderate osteoarthritis at both shoulders. IMPRESSION: 1. Minimal streaky bibasilar atelectasis. Reviewed, dictated and finalized at location B. 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
--- NOTE | ~2024-08-07 | CT_ITS ---
EXAMINATION: 1. CT facial & cervical spine wo DATE: 08/07/2024 10:31 INDICATION: Fall with facial injury TECHNIQUE: 1. Computed tomography (CT) of the maxillofacial region and of the cervical spine were performed with out intravenous contrast. Sagittal and coronal reconstructions of both regions were obtained. Automat ed exposure control and iterative reconstruction technique were employed. The dose-length product was 472.06 mGy-cm. COMPARISON: Cervical spine MR dated 07/18/2024 FINDINGS: Maxillofacial CT: Left malar soft tissue tissue swelling with stranding in the subcutaneous fat consistent with a postt raumatic contusion. No maxillofacial fractures. Specifically the nasal bones, zygomatic arches, casey ble and armenta of the orbits and paranasal sinuses are all intact. Orbits are normal with changes of b ilateral intraocular lens replacement. The mastoid air cells and middle ear cavities are clear. Cervical spine CT: Alignment is normal. Vertebral body heights are normal. No fracture. Severe osteoarthritis at the zhen antoaxial articulation. Severe disc height loss at C6-C7, moderate disc height loss at C5-C6, mild to moderate disc height loss at C3-C4 and mild disc height loss at C2-C3 and C4-C5. Posterior disc oste ophyte complexes at C5-C6 and C6-C7 degenerative mild central canal stenosis. There is multilevel mod erate to severe cervical facet and uncovertebral osteoarthritis contributing to mild to moderate neur al foraminal stenosis at a few levels on the left and right. See the recent prior cervical spine MR r eport for level by level analysis. Cervical soft tissues are unremarkable. IMPRESSION: 1. Left malar subcutaneous contusion with no maxillofacial fractures. 2. Severe cervical spondylosis with no acute osseous abnormality. Reviewed, dictated and finalized at location B. ICAL NURSE OCCUPATIONAL MEDICINE
--- NOTE | ~2024-08-07 | CT_ITS ---
EXAMINATION: CT brain wo con DATE: 08/07/2024 10:31 INDICATION: Fall post presyncopal episode with head injury TECHNIQUE: Computed tomography (CT) of the head was performed without intravenous contrast. Sagittal and coronal reconstructions were performed. The mA was adjusted according to patient size. Iterative reconstruction technique was employed. The dose-length product was 605.33 mGy-cm. COMPARISON: head CT dated 07/16/2024 FINDINGS: No fracture. No acute intracranial hemorrhage, acute infarction or abnormal extra axial fluid collect ion. There is stents of scattered white matter hypoattenuation consistent with chronic small vessel i schemic disease. Symmetric prominence of the sulci and ventricles consistent with mild to moderate ag e-appropriate diffuse cerebral volume loss. Ventricles are normal and symmetric. No mass/mass effect. Changes of bilateral intraocular lens replacement. The orbits, paranasal sinuses and mastoid air em ls are normal. Intracranial calcified cerebral atherosclerosis is noted. IMPRESSION: 1. No fracture or acute intracranial process. 2. Age-related changes including mild to moderate diffuse volume loss and extensive scattered white m atter hypoattenuation consistent with chronic small vessel ischemic disease. Reviewed, dictated and finalized at location B. [employer] PAN[employer]S IMPRESSION: 1. No fracture or acute intracranial process. 2. Age-related changes including mild to moderate diffuse volume loss and exten sive scattered white matter hypoattenuation consistent with chronic small vesse l ischemic disease.
--- NOTE | 2024-08-07 10:13 | ECG_ITS ---
Test Date: 2024-08-07 11:45:31 Measurements Intervals [place] Rate: 62 P: 33 [place]: 201 QRS: 11 QRSD: 102 T: 57 QT: 454 QTc: 461 Interpretive Statements SINUS RHYTHM CONSIDER INFERIOR INFARCT, AGE INDETERMINATE BASELINE ARTIFACT- I, II, AVR ABNORMAL ECG Compared to ECG 07/16/2024 23:06:47 No significant changes Electronically Signed On 08-07-2024 12:04:54 LABOR TRAINING MANAGER by Alfredo Wright D.O.
--- NOTE | 2024-08-07 10:22 | PC.NURSE ---
pt to CT and xray at this time
[2024-08-07 11:02] LABS: Basophils Percent Auto 0.4 % (0.2-1.2); Eosinophils Absolute Auto 0.2 K/mm3 (0-0.3); Eosinophils Percent Auto 1.8 % (0-4.4); Hematocrit 29.2 % (37.0-47.0); Hemoglobin 9.3 g/dL (12.0-15.0); Immature Granulocyte Absolute 0.05 K/mm3 (0.00-0.031); Immature Granulocyte Percent A 0.5 % (0-0.5); Lymphocytes Absolute Auto 1.62 K/mm3 (0.9-3.2); Lymphocytes Percent Auto 16.3 % (18.3-44.2); Mean Corpuscular HGB Conc 31.8 g/dl (32-36); Mean Corpuscular Hemoglobin 27.7 pg (26-34); Mean Corpuscular Volume 86.9 fl (80-100); Mean Platelet Volume 9.6 fl (7.4-10.4); Monocytes Absolute Auto 0.7 K/mm3 (0.1-0.6); Monocytes Percent Auto 7.2 % (2.6-8.5); Neutrophils Absolute Auto 7.3 K/mm3 (1.3-6.7); Neutrophils Percent Auto 73.8 % (45.5-73.1); Platelet Count Result 376 k/mm3 (150-375); Red Blood Count 3.36 M/mm3 (4.2-5.4); Red Cell Distribution Width 15.6 % (11.5-14.5); White Blood Count 9.9 K/mm3 (4.5-10.0)
[2024-08-07 11:26] LABS: NT Pro B Type Natriuretic Pept 341 pg/mL (19.9-100); Troponin I < 0.012 ng/mL (0.000-0.034)
[2024-08-07 11:30] LABS: Add Urine Microscopic? YES; Appearance Urine Clear (Clear); Bacteria Urine None Seen /hpf; Bilirubin Urine Negative (Negative); Blood Urine Negative (Negative); Color Urine Yellow (Yellow); Glucose Urine UA Negative (Negative); Ketones Urine Negative (Negative); Leukocyte Esterase Ur Trace LEU/UL (Negative); Nitrate Urine Negative (Negative); Non Pathogenic Casts 0-2; Protein Urine Negative (Negative); RBC Urine 0-2 /hpf (0-2); Specific Grav Ur 1.008 (1.001-1.035); Squamous Epithelial Cell Urine Occasional /hpf (Few); WBC Urine 0-5 /hpf (0-3)
--- NOTE | 2024-08-07 13:16 | ECG_ITS ---
Test Date: 2024-08-07 13:21:18 Measurements Intervals [place] Rate: 65 P: 32 [place]: 217 QRS: 6 QRSD: 101 T: 50 QT: 431 QTc: 449 Interpretive Statements SINUS RHYTHM WITH FIRST DEGREE AV BLOCK VOLTAGE CRITERIA FOR LVH CONSIDER INFERIOR INFARCT, AGE INDETERMINATE ABNORMAL ECG Compared to ECG 08/07/2024 11:45:31 First degree AV block now present Electronically Signed On 08-07-2024 13:25:08 CAMERA REPAIRMAN by Alfredo Wright D.O.
[2024-08-07 13:51] LABS: Troponin I < 0.012 ng/mL (0.000-0.034)
--- NOTE | 2024-08-07 15:12 | ED_ITS ---
HPI - General Adult General Chief complaint: Fall Stated complaint: fell out of W/C Time Seen by Provider: 08/07/24 10:10 History of Present Illness HPI narrative: This is a 70-year-old female presenting after a ground level fall. She stood up out of her wheelchair and became lightheaded and fell forward striking her left cheek. Denies loss of consciousness. She is on Plavix. No other injuries. patient is currently asymptomatic. She denies fevers chills chest pain difficulty breathing abdominal pain or urinary symptoms. Related Data Home Medications Medication Instructions Recorded Confirmed aspirin 81 mg tablet,delayed 81 mg PO DAILY 10/10/23 07/20/24 release lamotrigine 25 mg tablet 75 mg PO Q12H 10/10/23 07/20/24 metoprolol succinate 50 mg 50 mg PO QAM 10/10/23 07/20/24 tablet,extended release 24 hr primidone 50 mg tablet 50 mg PO QAM 10/10/23 07/20/24 pantoprazole 40 mg tablet,delayed 40 mg PO QAM 06/30/24 07/20/24 release secukinumab 150 mg/mL subcutaneous 300 mg subcut [id number] 07/30/24 07/30/24 pen injector (Cosentyx Pen) Allergies Allergy/AdvReac Type Severity Reaction Status Date / Time cephalexin Allergy Severe Anaphylaxis Verified 08/07/24 13:25 [facility] Past Medical History Medical History Anal fissure Anemia Ankylosing spondylitis of multiple sites in spine Anxiety B12 deficiency Bronchitis Chronic pain Depression Diverticulitis Emphysema of lung Fatty liver Gastro-esophageal reflux disease without esophagitis Hallucinations History of basal cell carcinoma (BCC) Hypertension Macular degeneration Mixed hyperlipidemia Obstructive sleep apnea Osteoporosis Peripheral neuropathy Psoriasis Seizures (1973) Seronegative rheumatoid arthritis of multiple sites patient of Dr. Shahriar Nixon Sleep apnea in adult does not use CPAP Tobacco abuse Type 2 diabetes mellitus Surgical History Surgical History History of appendectomy History of benign breast biopsy History of carpal tunnel release History of cataract extraction with lens replacement History of section History of colonoscopy History of dilatation and curettage History of lumbar laminectomy History of sinus surgery History of tubal ligation Status post anal fissurectomy Family History Family History Mother Hypertension, Onset Age: 97 Father Family history of malignant neoplasm Family history of lung cancer, Onset Age: 94 Colon cancer Sibling Family history of blood dyscrasia Other Family history of arthritis Family history of seizure disorder No family history of cardiovascular disease No family history of diabetes mellitus No family history of hypertension Prediabetes Social History Social History Social History: Surrogate medical decision maker: Misha Cyril, spouse. Code status: Long discussion about options and the patient wishes to be DNR Smoking packs per day: 0.5 Smoking cigarettes per day: 10.0 Years smoked: 64 Smoking pack-years: 32.00 Smoking status: Current some day smoker Tobacco type: cigarettes Second hand tobacco smoke exposure: Yes Additional smoking assessment comments: 1-1.5 ppd for 59 years Alcohol intake: current Drinks per week: 14 Alcohol use details: beer-occasionally Substance use: never Do You Feel Safe in your Home?: Yes Lack of Transportation: No Lack of Food: Never True Current Housing: I Have Housing Concerned About Future Housing: No Difficulty Paying Gas/Electric Bills: No Difficulty Paying for Meds: No Currently Unemployed: No Education: Master's Degree or Higher Difficulty w/ Childcare or Family Care: No Living arrangements: with family Additional living arrangements comments: Lives with in [place]. Gender identity (if verbalized by the patient): Female Sexual Orientation (if Verbalized by the Patient): Straight or Heterosexual Spiritual care concerns: No Exam Narrative: APPEARANCE: No apparent distress. Head: hematoma abrasion over the left cheek EYES: EOMI, no pain on extraocular eye movements no concern for entrapment NOSE: Atraumatic NECK: Trachea midline RESPIRATORY: No increased rate of breathing , Clear to auscultation CARDIOVASCULAR: RRR, ABDOMINAL: Non-distended soft nontender MUSCULOSKELETAl: head to toe trauma exam revealed no injuries outside of the left cheek abrasion NEURO: Alert. Moving 4/4 extremities SKIN:: Warm, dry. Normal color PSYCHIATRIC: Normal affect Course Vital Signs Vital signs: Vital Signs Temperature 98 F 08/07/24 10:09 Pulse Rate 58 L 08/07/24 10:09 Respiratory Rate 13 08/07/24 10:09 Blood Pressure 152/77 H 08/07/24 10:09 Pulse Oximetry 97 08/07/24 10:09 Oxygen Delivery Room Air 08/07/24 10:09 Temperature 98 F 08/07/24 10:09 Pulse Rate 64 08/07/24 13:20 Respiratory Rate 18 08/07/24 13:20 Blood Pressure 129/60 08/07/24 13:20 Pulse Oximetry 98 08/07/24 13:20 Oxygen Delivery Room Air 08/07/24 10:09 Medical Decision Making MDM Narrative Medical decision making narrative: -Course: 78-year-old female presenting after a ground fall. Trauma workup negative. Laboratory studies and EKG normal. Patient will be discharged back to the half-way. -DDX includes but is not limited to: Bony injury, intracranial hemorrhage, dehydration sepsis UTI -Independent interpretation of studies: labs and imaging reviewed Independent EKG interpretation: Rhythm [sinus], Rate [65], Adams -[normal], CA -[normal], QRS [narrow], QTC [normal], T waves -[negative for concerning inversions], ST Segments - [Negative for concerning elevations] Final interpretations: [Normal Sinus Rhythm] -Shared decision making / Disposition: discharge Vital Signs Vital Signs: Vital Signs Temperature 98 F 08/07/24 10:09 Pulse Rate 58 L 08/07/24 10:09 Respiratory Rate 13 08/07/24 10:09 Blood Pressure 152/77 H 08/07/24 10:09 Pulse Oximetry 97 08/07/24 10:09 Oxygen Delivery Room Air 08/07/24 10:09 Temperature 98 F 08/07/24 10:09 Pulse Rate 64 08/07/24 13:20 Respiratory Rate 18 08/07/24 13:20 Blood Pressure 129/60 08/07/24 13:20 Pulse Oximetry 98 08/07/24 13:20 Oxygen Delivery Room Air 08/07/24 10:09 Lab Data 08/07/24 10:55 Labs: Lab Results 08/07/24 08/07/24 08/07/24 Range/Units 10:55 10:55 11:19 WBC 9.9 (4.5-10.0) K/mm3 RBC 3.36 L (4.2-5.4) M/mm3 Hgb 9.3 L (12.0-15.0) g/dL Hct 29.2 L (37.0-47.0) % MCV 86.9 (80-100) fl MCH 27.7 (26-34) pg MCHC 31.8 L (32-36) g/dl RDW 15.6 H (11.5-14.5) % Plt Count 376 H (150-375) k/mm3 MPV 9.6 (7.4-10.4) fl Immature Gran % (Auto) 0.5 (0-0.5) % Neut % (Auto) 73.8 H (45.5-73.1) % Lymph % (Auto) 16.3 L (18.3-44.2) % [place] % (Auto) 7.2 (2.6-8.5) % Eos % (Auto) 1.8 (0-4.4) % Baso % (Auto) 0.4 (0.2-1.2) % Lymph # (Auto) 1.62 (0.9-3.2) K/mm3 [place] # (Auto) 0.7 H (0.1-0.6) K/mm3 Eos # (Auto) 0.2 (0-0.3) K/mm3 Baso # (Auto) 0.0 (0.0-0.1) K/mm3 Abs Immat Gran (auto) 0.05 H (0.00-0.031) K/mm3 Absolute Neuts (auto) 7.3 H (1.3-6.7) K/mm3 Absolute Nucleated RBC 0.000 (0.0-0.012) K/mm3 Nucleated RBC % 0.0 (0.0-0.2) % Troponin I < 0.012 (0.000-0.034) ng/mL NT-Pro-B Natriuret Pep Cancelled 341 H Urine Color Yellow (Yellow) Urine Appearance Clear (Clear) Urine pH 7.0 (5.0-9.0) Ur Specific [place] 1.008 (1.001-1.035) Urine Protein Negative (Negative) mg/dL Urine Glucose (UA) Negative (Negative) mg/dL Urine Ketones Negative (Negative) mg/dL Ur Blood (Man) Negative (Negative) Urine Nitrate Negative (Negative) Urine Bilirubin Negative (Negative) Urine Urobilinogen 1.0 (<2.0) mg/dL Leukocyte Esterase Rfl Trace H (Negative) COY/UL Urine RBC 0-2 (0-2) /hpf Urine WBC 0-5 (0-3) /hpf Ur Squamous Epith Cells Occasional (Few) /hpf Urine Bacteria None seen /hpf Urine Casts 0-2 08/07/ Range/Units 13:22 WBC (4.5-10.0) K/mm3 RBC (4.2-5.4) M/mm3 Hgb (12.0-15.0) g/dL Hct (37.0-47.0) % MCV (80-100) fl MCH (26-34) pg MCHC (32-36) g/dl RDW (11.5-14.5) % Plt Count (150-375) k/mm3 MPV (7.4-10.4) fl Immature Gran % (Auto) (0-0.5) % Neut % (Auto) (45.5-73.1) % Lymph % (Auto) (18.3-44.2) % [place] % (Auto) (2.6-8.5) % Eos % (Auto) (0-4.4) % Baso % (Auto) (0.2-1.2) % Lymph # (Auto) (0.9-3.2) K/mm3 [place] # (Auto) (0.1-0.6) K/mm3 Eos # (Auto) (0-0.3) K/mm3 Baso # (Auto) (0.0-0.1) K/mm3 Abs Immat Gran (auto) (0.00-0.031) K/mm3 Absolute Neuts (auto) (1.3-6.7) K/mm3 Absolute Nucleated RBC (0.0-0.012) K/mm3 Nucleated RBC % (0.0-0.2) % Troponin I < 0.012 (0.000-0.034) ng/mL NT-Pro-B Natriuret Pep Urine Color (Yellow) Urine Appearance (Clear) Urine pH (5.0-9.0) Ur Specific [place] (1.001-1.035) Urine Protein (Negative) mg/dL Urine Glucose (UA) (Negative) mg/dL Urine Ketones (Negative) mg/dL Ur Blood (Man) (Negative) Urine Nitrate (Negative) Urine Bilirubin (Negative) Urine Urobilinogen (<2.0) mg/dL Leukocyte Esterase Rfl (Negative) COY/UL Urine RBC (0-2) /hpf Urine WBC (0-3) /hpf Ur Squamous Epith Cells (Few) /hpf Urine Bacteria /hpf Urine Casts Discharge Plan Discharge Clinical Impression: Contusion of face, Fall Patient Disposition: Home, Self-Care Condition: Stable Instructions: Antibiotic Form, Fall Prevention (ED) Additional Instructions: please follow-up with your primary care physician for further management. Please practice fall safety as you are on blood thinners and at high risk for intracranial hemorrhage. Please return if you develop headaches shortness breath chest pain would like re-evaluation. Prescriptions: No Action Cosentyx Pen 150 mg/mL Pen Injector 300 mg SUBCUT [id number] Patient Comments: DOSE DUE 07/30 nicotine [Nicoderm CQ] 21 mg/24 hr Patch 24 Hour 1 patch transdermal DAILY Qty: 10 0RF trazodone 50 mg tablet 100 mg PO HS Qty: 60 1RF tramadol 50 mg tablet 50 mg PO Q6H PRN (Reason: pain) Qty: 20 0RF pantoprazole 40 mg tablet,delayed release (DR/EC) 40 mg PO QAM Atorvastatin [Lipitor] 40 mg PO DAILY Qty: 30 0RF isosorbide mononitrate 30 mg tablet extended release 24 hr 15 mg PO DAILY Qty: 30 0RF primidone 50 mg tablet 50 mg PO QAM aspirin 81 mg Tablet,Delayed Release (Dr/Ec) 81 mg PO DAILY lamotrigine 25 mg tablet 75 mg PO Q12H metoprolol succinate 50 mg tablet extended release 24 hr 50 mg PO QAM amlodipine [Norvasc] 5 mg tablet 10 mg PO HS Qty: 180 3RF duloxetine 60 mg capsule,delayed release(DR/EC) 120 mg PO QAM Qty: 90 1RF hydrocortisone [Anusol-HC] 2.5 % cream with perineal applicator 1 applic RECTAL DAILY PRN (Reason: hemorrhoids) Qty: 30 0RF losartan 100 mg tablet 100 mg PO DAILY Qty: 90 3RF thiamine HCl (vitamin B1) [Vitamin B-1] 100 mg Tablet 100 mg PO QAM Qty: 30 0RF hydralazine 25 mg Tablet 25 mg PO TID Qty: 90 0RF clopidogrel 75 mg Tablet 75 mg PO QAM Qty: 30 0RF docusate sodium 100 mg Capsule 100 mg PO BID Qty: 60 0RF folic acid 1 mg Tablet 1 mg PO DAILY Qty: 30 0RF hydroxyzine HCl 25 mg Tablet 25 mg PO QAM Qty: 30 0RF Ocuvite with Lutein 300 mcg-200 mg-27 mg-2 mg Tablet 2 tablet PO QAM Qty: 60 0RF acetaminophen 500 mg Tablet 500 mg PO BID PRN (Reason: pain) Qty: 30 0RF gabapentin 300 mg capsule 600 mg PO BID Qty: 270 1RF Follow-up/Referrals: Hugh Mendez MD [Primary Care Provider] -
--- NOTE | 2024-08-07 20:59 | PC.NURSE ---
EMS arrives to patient
== END 2024-08-07 21:09 | disposition home or self-care (01) ==
PROVIDERS: Emergency Provider Emergency Medicine; PCP Emergency Medicine
DX: S00.83XA Contusion of other part of head, initial encounter (principal); W18.30XA Fall on same level, unspecified, initial encounter; R42 Dizziness and giddiness; Z79.02 Long term (current) use of antithrombotics/antiplatelets; Z79.82 Long term (current) use of aspirin; F41.8 Other specified anxiety disorders; K21.9 Gastro-esophageal reflux disease without esophagitis; I10 Essential (primary) hypertension; E78.2 Mixed hyperlipidemia; M81.0 Age-related osteoporosis without current pathological fracture; G47.33 Obstructive sleep apnea (adult) (pediatric); E11.9 Type 2 diabetes mellitus without complications
CPT/HCPCS: 36415; 70450; 70486; 71045; 72125; 81001; 83880; 84484; 85025; 93005; 99284

== ENCOUNTER 2024-08-12 12:12 | Inpatient (IN) | payer MEDICARE, OTHER, SELFPAY ==
[2024-08-12] VITALS (9 sets, daily range): BP systolic 144–176; BP diastolic 58–79; PULSE 80–91; RESP 15–21; TEMP 36.8–38.2; O2SAT 94–98; BMI 31.2
--- NOTE | ~2024-08-12 | CT_ITS ---
EXAMINATION: CTA chest PE protocol DATE: 08/14/2024 10:36 INDICATION: Fever. Assess for pulmonary embolism. TECHNIQUE: Computed tomography (CT) pulmonary angiogram of the chest was performed with 100 mL Omnipa que-350 intravenous contrast. Additional 3D reconstructions utilizing coronal maximum intensity proje ction (MIP) were performed. Automated exposure control and iterative reconstruction technique were em ployed. The dose-length product was 832.74 mGy-cm. COMPARISON: None FINDINGS: No pulmonary embolism. Mild dependent atelectasis in the bilateral lower lobes and mild discoid atele ctasis in the right lower lobe. No pneumonia, pulmonary edema, pleural effusion or pneumothorax. Hear t size is normal. No pericardial effusion. Atherosclerotic coronary artery calcifications. Thoracic a ralph is normal in caliber with non hemodynamic significant atherosclerotic plaque and no dissection. No pathologically enlarged thoracic lymphadenopathy. Severe lower cervical and moderate thoracic spon dylosis with chronic mild anterior wedging of multiple mid thoracic vertebral bodies. IMPRESSION: 1. No pulmonary embolism or other acute cardiopulmonary disease. Reviewed, dictated and finalized at location A. SCRUB TECH
--- NOTE | ~2024-08-12 | MR_ITS ---
EXAMINATION: MR brain/brain stem wo con DATE: 08/14/2024 10:16 INDICATION: Altered mental status TECHNIQUE: Magnetic resonance imaging (MRI) of the brain and brainstem was performed without intraven ous contrast. Sequences included sagittal and axial T1-weighted SE, axial diffusion-weighted FS SE, a xial 3D SWAN, axial T2-weighted FLAIR, and axial T2-weighted FSE. Postcontrast axial and coronal T1-w eighted SE was obtained. Apparent diffusion coefficient (ADC) maps were created. COMPARISON: None. FINDINGS: There are no areas of restricted diffusion to suggest acute infarction. There is early encephalomalac ia at the now early chronic infarct at the medial aspect of the right cerebellar hemisphere. There ar e 2 additional tiny old lacunar infarcts in the right cerebellar hemisphere, 2 of which can be seen o n the prior study and one of which in the right cerebellar hemisphere which may also be early chronic without evident restricted diffusion. No intracranial hemorrhage or abnormal intracranial mass lesio n. There are scattered areas of nonspecific increased T2-weighted signal intensity in the cerebral an d pontine white matter, predominantly involving the deep and periventricular white matter. There are no intraparenchymal signal abnormalities seen on the other pulse sequences. Symmetric prominence of t he sulci and ventricles consistent with mild age-appropriate diffuse cerebral volume loss. There are no abnormal extra-axial fluid collections. Flow voids are seen in the cerebral arteries on the T2-angela ghted sequences consistent with their expected patency. Changes of bilateral intraocular lens replace ment. Visualized orbits and soft tissues are unremarkable. There are no areas of abnormal enhancement on the post contrast images. IMPRESSION: 1. No acute intracranial process. 2. 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 3. Age-related changes including mild diffuse volume loss and cerebral and moderate scattered cerebra l and pontine white matter T2 hyperintensity likely related to chronic small vessel ischemic disease. Reviewed, dictated and finalized at location A. CITY MANAGEMENT SPECIALIST IMPRESSION: 1. No acute intracranial process. 2. Interval evolution of now early chronic infarcts in the right cerebellar hem isphere with a couple additional unchanged small old lacunar infarcts in the bi lateral cerebellar hemispheres. 3. Age-related changes including mild diffuse volume loss and cerebral and mode rate scattered cerebral and pontine white matter T2 hyperintensity likely relat ed to chronic small vessel ischemic disease.
--- NOTE | ~2024-08-12 | XR_ITS ---
EXAMINATION: XR wrist RT 2V DATE: 08/12/2024 17:10 INDICATION: Right wrist pain post fall TECHNIQUE: Posteroanterior, ulnar deviation, oblique, and lateral views of the right wrist were obtai vic. COMPARISON: 10/24/2022 FINDINGS: Unchanged 2 mm ulnar minus variance. Alignment is otherwise normal. No fractures. Polyarticular osteo arthritis, severe at the triscaphe and first carpometacarpal joints and mild at several of the joints at the right wrist and visualized hand. IMPRESSION: 1. 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 No acute osseous abnormali ty. Reviewed, dictated and finalized at location A. ER CLIPPER HELPER IMPRESSION: 1. 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 No a cute osseous abnormality.
--- NOTE | ~2024-08-12 | CT_ITS ---
EXAMINATION: CT chest abdomen pelvis w con DATE: 08/12/2024 13:58 INDICATION: Fever. TECHNIQUE: Computed tomography (CT) of the chest, abdomen, and pelvis was performed with 100 mL Omnip aque 350 intravenous contrast. Automated exposure control and iterative reconstruction technique were employed. The dose-length product was 1154.25 mGy-cm. COMPARISON: None FINDINGS: CHEST CT: The lungs demonstrate mild atelectasis. No pleural effusion. The heart size is normal. No pericardial effusion. There are coronary artery calcifications. There is a chronic burst fracture of T12. There is mild chronic anterior wedging of multiple mid thoracic vertebral bodies. There is severe cervical spondylosis and moderate thoracic spondylosis. ABDOMEN/PELVIS CT: The liver, spleen, gallbladder, pancreas, and adrenal glands are normal. There is cortical thinning o f the kidneys. There are cysts in the kidneys measuring up to 9 mm on the right. There is calcified a therosclerosis of the aorta and many of the other arteries. Stool distends the rectum. There is diver ticulosis of the colon without evidence of diverticulitis. The appendix is not visualized. There are no pathologically enlarged lymph nodes. There is no free intraperitoneal fluid. There is severe lumba r spondylosis. IMPRESSION: 1. Stool distends the rectum. Reviewed, dictated and finalized at location A. PHONE DIRECTORY DELIVERER
--- NOTE | ~2024-08-12 | XR_ITS ---
XR chest 1V Ordering provider: Reid Louise MD History: 78 years Female with . AMS, WEAKNESS . Comparison: None. FINDINGS: MEDIASTINUM: The cardiac silhouette is mild enlarged. LUNGS: No infiltrates, effusions or pneumothorax. OTHER: No free air under the diaphragm. Degenerative changes of the spine. IMPRESSION: No acute cardiopulmonary pathology. Reviewed, dictated and finalized at location A. ESPONDENT
--- NOTE | ~2024-08-12 | CT_ITS ---
EXAMINATION: CT shoulder RT wo con DATE: 08/14/2024 10:36 INDICATION: Right upper extremity pain. TECHNIQUE: High resolution computed tomography (CT) of the right shoulder was performed without intra venous contrast. Additional sagittal and coronal reconstructions were performed. Automated exposure c ontrol and iterative reconstruction technique were employed. The dose-length product was 203.43 mGy-c m. COMPARISON: Contrast-enhanced chest CT dated 08/13/2024 FINDINGS: Bone alignment is normal. There is moderate osteoarthritis at the right glenohumeral and acromioclavi cular joints. There is subarticular cystlike change along the inferior margin of the glenoid consiste nt with overlying high-grade chondromalacia. No appreciable glenohumeral joint effusion. There is sub tle calcific density in the distal infraspinatus tendon consistent with mild calcific tendinitis. The re are erosive and hypertrophic change along the superior and middle facet footplates of the greater tuberosity likely sequela of chronic rotator cuff disease. There is no asymmetric atrophy of the rota tor cuff or musculature of the right shoulder girdle. No right axillary lymphadenopathy. Mild depende nt atelectasis in the visualized right lung. IMPRESSION: 1. Moderate right acromioclavicular and glenohumeral osteoarthritis. No acute osseous abnormality. 2. Erosive and hypertrophic change along the middle and superior facets of the right greater tuberosi ty consistent with rotator cuff disease with minimal calcific density in the distal infraspinatus ten don consistent with calcific tendinitis. Reviewed, dictated and finalized at location A. D DONOR UNIT ASSISTANT IMPRESSION: 1. Moderate right acromioclavicular and glenohumeral osteoarthritis. No acute o sseous abnormality. 2. Erosive and hypertrophic change along the middle and superior facets of the right greater tuberosity consistent with rotator cuff disease with minimal calc ific density in the distal infraspinatus tendon consistent with calcific tendin itis.
--- NOTE | ~2024-08-12 | XR_ITS ---
XR elbow RT 2V Ordering provider: Reid Louise MD History: . fall . Comparison: None. FINDINGS: BONES: No acute fracture or dislocation. JOINT SPACES: Normal. SOFT TISSUES: Unremarkable. No definite joint effusion. IMPRESSION: No acute osseous abnormality of the right elbow. Reviewed, dictated and finalized at location A. ER MACHINE
--- NOTE | ~2024-08-12 | CT_ITS ---
CT brain wo con Ordering provider: Reid Louise MD History: 78 years Female with . AMS . Comparison: None. Technique: CT of the head without contrast. Radiation reduction technique utilized. The dose-length p roduct was 605.33 mGy-cm. FINDINGS: BRAIN PARENCHYMA AND CSF SPACES: Mild leukoaraiosis and diffuse cortical atrophy. Mild atheromatous d isease. Old infarct with encephalomalacia seen in the right cerebellar hemisphere medially. No midlin e shift, mass effect or hemorrhage. The brain parenchyma and CSF spaces are otherwise normal. VISUALIZED PARANASAL SINUSES: Well aerated. MASTOIDS: Well aerated. BONES: The bones appear intact. SOFT TISSUES: Visualized nasopharynx is normal. Superficial soft tissues are normal. IMPRESSION: No acute intracranial findings. Reviewed, dictated and finalized at location A. ICAL ASST
--- NOTE | ~2024-08-12 | XR_ITS ---
XR shoulder RT min 2V Ordering provider: Reid Louise MD History: . fall/pain . Comparison: None. FINDINGS: BONES: No acute fracture or dislocation. Lucency in the area of the greater tuberosity which may be d egenerative. Possibility of fracture is less likely. CT may better for evaluation. JOINT SPACES: The acromioclavicular joint shows osteoarthritic changes.. The glenohumeral joint is na rrowing of SOFT TISSUES: Normal. IMPRESSION: Lucency in the area of the greater tuberosity of the humerus is most likely degenerative. Fracture is less likely. CT is better for evaluation. Severe osteoarthritic changes of the glenohumeral joint. Reviewed, dictated and finalized at location A. L CLEANER IMPRESSION: Lucency in the area of the greater tuberosity of the humerus is most likely deg enerative. Fracture is less likely. CT is better for evaluation. Severe osteoarthritic changes of the glenohumeral joint.
--- NOTE | 2024-08-12 12:40 | ECG_ITS ---
Test Date: 2024-08-12 12:49:40 Measurements Intervals [place] Rate: 80 P: 45 CO: 179 QRS: 35 QRSD: 108 T: 61 QT: 405 QTc: 468 Interpretive Statements SINUS RHYTHM CONSIDER INFERIOR INFARCT, AGE INDETERMINATE BASELINE ARTIFACT- I, II, III, AVR, AVL, AVF, V1-V6 ABNORMAL ECG Compared to ECG 08/07/2024 13:21:18 NO SIGNIFICANT CHANGE Electronically Signed On 08-12-2024 13:24:20 OCCUPATIONAL SAFETY SPECIALIST by Alfredo Wright D.O.
[2024-08-12 13:02] LABS: Basophils Percent Auto 0.1 % (0.2-1.2); Eosinophils Percent Auto 0.3 % (0-4.4); Hematocrit 29.6 % (37.0-47.0); Hemoglobin 9.4 g/dL (12.0-15.0); Immature Granulocyte Absolute 0.05 K/mm3 (0.00-0.031); Immature Granulocyte Percent A 0.7 % (0-0.5); Lymphocytes Absolute Auto 0.49 K/mm3 (0.9-3.2); Lymphocytes Percent Auto 6.9 % (18.3-44.2); Mean Corpuscular HGB Conc 31.8 g/dl (32-36); Mean Corpuscular Hemoglobin 26.9 pg (26-34); Mean Corpuscular Volume 84.8 fl (80-100); Mean Platelet Volume 9.6 fl (7.4-10.4); Monocytes Absolute Auto 0.3 K/mm3 (0.1-0.6); Monocytes Percent Auto 4.5 % (2.6-8.5); Neutrophils Absolute Auto 6.2 K/mm3 (1.3-6.7); Neutrophils Percent Auto 87.5 % (45.5-73.1); Platelet Count Result 345 k/mm3 (150-375); Red Blood Count 3.49 M/mm3 (4.2-5.4); Red Cell Distribution Width 15.8 % (11.5-14.5); White Blood Count 7.1 K/mm3 (4.5-10.0)
[2024-08-12 13:13] LABS: Add Urine Microscopic? YES; Appearance Urine Cloudy (Clear); Bacteria Urine Rare /hpf; Bilirubin Urine Negative (Negative); Blood Urine Negative (Negative); Color Urine Yellow (Yellow); Glucose Urine UA Negative (Negative); Ketones Urine Trace mg/dL (Negative); Leukocyte Esterase Ur 2+ LEU/UL (Negative); Need Manual Microscopic Reviewed; Nitrate Urine Negative (Negative); Non Pathogenic Casts 0-2; Protein Urine Trace mg/dL (Negative); Specific Grav Ur 1.014 (1.001-1.035); Squamous Epithelial Cell Urine Moderate /hpf (Few); WBC Urine 0-5 /hpf (0-3); pH Urine 7.5 (5.0-9.0)
[2024-08-12 13:14] LABS: INR 1.1; Lipase 22 U/L (23-300); Magnesium 1.8 mg/dL (1.6-2.3); Phosphorus 3.9 mg/dL (2.5-4.5); Prothrombin Time 14.9 Seconds (11.1-14.7)
[2024-08-12 13:15] LABS: Alanine Aminotransferase 10 U/L (6-35); Albumin Level 3.7 g/dL (3.5-5.1); Alkaline Phosphatase 115 U/L (38-126); Anion Gap 9 mmol/L (4-12); Aspartate Amino Transferase 21 U/L (14-36); Bilirubin,Total 0.5 mg/dL (0.2-1.3); Blood Urea Nitrogen 10 mg/dL (7-17); Calcium 8.6 mg/dL (8.4-10.2); Carbon Dioxide 28 mmol/L (22-30); Chloride 98 mmol/L (98-107); Estimated CRCL calculation 71 ml/min; Estimated Glomerular Filt Rate > 60; Glucose 167 mg/dL (65-110); Partial Thromboplastin Time 29.6 Seconds (22.3-36.8); Potassium 3.6 mmol/L (3.4-5.0); Sodium 135 mmol/L (137-145)
[2024-08-12 13:27] LABS: NT Pro B Type Natriuretic Pept 898 pg/mL (19.9-100); Troponin I < 0.012 ng/mL (0.000-0.034)
[2024-08-12 14:04] LABS: Glucose Point of Care 172 mg/dl (65-105)
[2024-08-12] MEDS: ACETAMINOPHEN 325 MG SUPPOSITORY RECTAL (14:40)
[2024-08-12] MEDS: levoFLOXacin 750 MG/D5W 150 ML 750 MG/150 ML BAG 100 MG IVPB (15:20)
[2024-08-12] MEDS: metroNIDAZOLE 500 MG/ISO 100ML 500 MG/100 ML BAG 100 MG IVPB ×2 (15:22→20:26)
[2024-08-12 15:36] LABS: Influenza A QL RT-PCR Negative (Negative); Influenza B QL RT-PCR Negative (Negative); RSV RNA, RT-PCR Negative (Negative); SARS-CoV-2 RNA PCR Negative (Negative)
[2024-08-12 16:13] LABS: Lactic Acid Reflex 0.8 mmol/L (0.7-2.0)
[2024-08-12 16:25] LABS: Troponin I < 0.012 ng/mL (0.000-0.034)
[2024-08-12] MEDS: ACETAMINOPHEN 650 MG SUPPOSITORY RECTAL (16:40)
--- NOTE | 2024-08-12 16:40 | ED_ITS ---
HPI - General Adult General Chief complaint: Altered Mental Status Stated complaint: ams Time Seen by Provider: 08/12/24 12:27 History of Present Illness HPI narrative: T+ is a 70-year-old female presenting ED with chief complaint of altered mental status. patient had a recent CVA and has been in rehab recovering. She has been seen in our ED multiple times for frequent falls. She was last seen on the 07 of August where [facility] with a negative trauma and metabolic workup. She has been doing okay since then with good days and bad days. The said that last night she was very tired and went to bed. When she woke up today she had decreased mental status. She is opening her eyes to voice. She is speaking very slow. She is not able to provide any meaningful history. Related Data Home Medications Medication Instructions Recorded Confirmed aspirin 81 mg tablet,delayed 81 mg PO DAILY 10/10/23 07/20/24 release lamotrigine 25 mg tablet 75 mg PO Q12H 10/10/23 07/20/24 metoprolol succinate 50 mg 50 mg PO QAM 10/10/23 07/20/24 tablet,extended release 24 hr primidone 50 mg tablet 50 mg PO QAM 10/10/23 07/20/24 pantoprazole 40 mg tablet,delayed 40 mg PO QAM 06/30/24 07/20/24 release secukinumab 150 mg/mL subcutaneous 300 mg subcut [id number] 07/30/24 07/30/24 pen injector (Cosentyx Pen) Allergies Allergy/AdvReac Type Severity Reaction Status Date / Time cephalexin Allergy Severe Anaphylaxis Verified 08/12/24 14:26 FOR[facility]LY [facility] Past Medical History Medical History Anal fissure Anemia Ankylosing spondylitis of multiple sites in spine Anxiety B12 deficiency Bronchitis Chronic pain Depression Diverticulitis Emphysema of lung Fatty liver Gastro-esophageal reflux disease without esophagitis Hallucinations History of basal cell carcinoma (BCC) Hypertension Macular degeneration Mixed hyperlipidemia Obstructive sleep apnea Osteoporosis Peripheral neuropathy Psoriasis Seizures (1973) Seronegative rheumatoid arthritis of multiple sites patient of Dr. Shahriar Nixon Sleep apnea in adult does not use CPAP Tobacco abuse Type 2 diabetes mellitus Surgical History Surgical History History of appendectomy History of benign breast biopsy History of carpal tunnel release History of cataract extraction with lens replacement History of section History of colonoscopy History of dilatation and curettage History of lumbar laminectomy History of sinus surgery History of tubal ligation Status post anal fissurectomy Family History Family History Mother Hypertension, Onset Age: 97 Father Family history of malignant neoplasm Family history of lung cancer, Onset Age: 94 Colon cancer Sibling Family history of blood dyscrasia Other Family history of arthritis Family history of seizure disorder No family history of cardiovascular disease No family history of diabetes mellitus No family history of hypertension Prediabetes Social History Social History Social History: Surrogate medical decision maker: Misha Nam, spouse. Code status: Long discussion about options and the patient wishes to be DNR Smoking packs per day: 0.5 Smoking cigarettes per day: 10.0 Years smoked: 64 Smoking pack-years: 32.00 Smoking status: Current some day smoker Tobacco type: cigarettes Second hand tobacco smoke exposure: Yes Additional smoking assessment comments: 1-1.5 ppd for 59 years Alcohol intake: current Drinks per week: 14 Alcohol use details: beer-occasionally Substance use: never Do You Feel Safe in your Home?: Yes Lack of Transportation: No Lack of Food: Never True Current Housing: I Have Housing Concerned About Future Housing: No Difficulty Paying Gas/Electric Bills: No Difficulty Paying for Meds: No Currently Unemployed: No Education: Master's Degree or Higher Difficulty w/ Childcare or Family Care: No Living arrangements: with family Additional living arrangements comments: Lives with in [place]. Gender identity (if verbalized by the patient): Female Sexual Orientation (if Verbalized by the Patient): Straight or Heterosexual Spiritual care concerns: No Exam Narrative: APPEARANCE: Patient is lying flat in bed with her eyes closed, Arousable to voice Head: atraumatic. EYES: EOMI, NOSE: Atraumatic NECK: Trachea midline, supple, no meningismus RESPIRATORY: No increased rate of breathing clear to auscultation CARDIOVASCULAR: RRR, no peripheral edema ABDOMINAL: Non-distended, soft nontender MUSCULOSKELETAl: No obvious deformities, pain with active and passive range of motion of the right wrist NEURO: Alert. Moving 4/4 extremities SKIN:: warm to touch, no significant skin breakdown PSYCHIATRIC: Normal affect Course Vital Signs Vital signs: Vital Signs Temperature 100.3 F H 08/12/24 12:14 Pulse Rate 80 08/12/24 12:14 Respiratory Rate 21 H 08/12/24 12:14 Blood Pressure 175/73 H 08/12/24 12:14 Pulse Oximetry 96 08/12/24 12:14 Oxygen Delivery Room Air 08/12/24 12:14 Temperature 100.5 F H 08/12/24 16:29 Pulse Rate 91 08/12/24 16:29 Respiratory Rate 18 08/12/24 16:29 Blood Pressure 144/67 H 08/12/24 16:29 Pulse Oximetry 95 08/12/24 16:29 Oxygen Delivery Room Air 08/12/24 12:41 Medical Decision Making MDM Narrative Medical decision making narrative: -Course: 78-year-old female presenting ED with chief complaint of altered mental status and fevers. reviewed patient given fluid resuscitation and broad- spectrum antibiotics while awaiting results of her workup. Patient given rectal Tylenol. Initial sepsis workup unrevealing with a clean urine, viral swabs and CT chest abdomen pelvis. blood and urine cultures are still pending. The only other focal finding on her exam is pain in the right wrist. Septic joint is a possibility if no other source of infection is found. patient will be admitted to the hospital for further management. patient is DNR DNI -DDX includes but is not limited to: sepsis, UTI, pneumonia, intra-abdominal pathology, dehydration -Hx from independent Sources: family bedside -Independent interpretation of studies: labs and imaging reviewed Independent EKG interpretation: Rhythm [sinus], Rate [80], [place] -[normal], RI -[normal], QRS [narrow], QTC [normal], T waves -[negative for concerning inversions], ST Segments - [Negative for concerning elevations] Final interpretations: [Normal Sinus Rhythm] -Discussion of Management/Consultants:Katherine -Shared decision making / Disposition:Admitted. Vital Signs Vital Signs: Vital Signs Temperature 100.3 F H 08/12/24 12:14 Pulse Rate 80 08/12/24 12:14 Respiratory Rate 21 H 08/12/24 12:14 Blood Pressure 175/73 H 08/12/24 12:14 Pulse Oximetry 96 08/12/24 12:14 Oxygen Delivery Room Air 08/12/24 12:14 Temperature 100.5 F H 08/12/24 16:29 Pulse Rate 91 08/12/24 16:29 Respiratory Rate 18 08/12/24 16:29 Blood Pressure 144/67 H 08/12/24 16:29 Pulse Oximetry 95 08/12/24 16:29 Oxygen Delivery Room Air 08/12/24 12:41 Lab Data 08/12/24 12:54 08/12/24 12:54 Labs: Lab Results 08/12/24 08/12/24 08/12/24 Range/Units 12:54 12:54 12:54 WBC 7.1 (4.5-10.0) K/mm3 RBC 3.49 L (4.2-5.4) M/mm3 Hgb 9.4 L (12.0-15.0) g/dL Hct 29.6 L (37.0-47.0) % MCV 84.8 (80-100) fl MCH 26.9 (26-34) pg MCHC 31.8 L (32-36) g/dl RDW 15.8 H (11.5-14.5) % Plt Count 345 (150-375) k/mm3 MPV 9.6 (7.4-10.4) fl Immature Gran % (Auto) 0.7 H (0-0.5) % Neut % (Auto) 87.5 H (45.5-73.1) % Lymph % (Auto) 6.9 L (18.3-44.2) % [place] % (Auto) 4.5 (2.6-8.5) % Eos % (Auto) 0.3 (0-4.4) % Baso % (Auto) 0.1 L (0.2-1.2) % Lymph # (Auto) 0.49 L (0.9-3.2) K/mm3 [place] # (Auto) 0.3 (0.1-0.6) K/mm3 Eos # (Auto) 0.0 (0-0.3) K/mm3 Baso # (Auto) 0.0 (0.0-0.1) K/mm3 Abs Immat Gran (auto) 0.05 H (0.00-0.031) K/mm3 Absolute Neuts (auto) 6.2 (1.3-6.7) K/mm3 Absolute Nucleated RBC 0.000 (0.0-0.012) K/mm3 Nucleated RBC % 0.0 (0.0-0.2) % PT 14.9 H Cancelled (11.1-14.7) Seconds INR 1.1 Cancelled APTT 29.6 (22.3-36.8) Seconds Sodium (137-145) mmol/L Potassium (3.4-5.0) mmol/L Chloride (98-107) mmol/L Carbon Dioxide (22-30) mmol/L Anion Gap (4-12) mmol/L BUN (7-17) mg/dL Creatinine (0.7-1.0) mg/dL Estim Creat Clear Calc ml/min Estimated GFR (59 - ) Glucose (65-110) mg/dL POC Capillary Glucose (65-105) mg/dl Lactic Acid (0.7-2.0) mmol/L Calcium (8.4-10.2) mg/dL Phosphorus (2.5-4.5) mg/dL Magnesium (1.6-2.3) mg/dL Total Bilirubin (0.2-1.3) mg/dL AST (14-36) U/L ALT (6-35) U/L Alkaline Phosphatase (38-126) U/L Troponin I (0.000-0.034) ng/mL NT-Pro-B Natriuret Pep (19.9-100) pg/mL Total Protein (6.3-8.2) g/dL Albumin (3.5-5.1) g/dL Lipase (23-300) U/L Urine Color (Yellow) Urine Appearance (Clear) Urine pH (5.0-9.0) Ur Specific [place] (1.001-1.035) Urine Protein (Negative) mg/dL Urine Glucose (UA) (Negative) mg/dL Urine Ketones (Negative) mg/dL Ur Blood (Man) (Negative) Urine Nitrate (Negative) Urine Bilirubin (Negative) Urine Urobilinogen (<2.0) mg/dL Add Ur Microanalysis Leukocyte Esterase Rfl (Negative) COY/UL Urine RBC (0-2) /hpf Urine WBC (0-3) /hpf Ur Squamous Epith Cells (Few) /hpf Urine Bacteria /hpf Urine Casts Nasal MRSA (PCR) Influenza A (RT-PCR) (Negative) Influenza B (RT-PCR) (Negative) RSV (RT-PCR) (Negative) SARS-CoV-2 RNA (RT-PCR) (Negative) 08/12/24 08/12/24 08/12/24 Range/Units 12:54 13:49 14:01 WBC (4.5-10.0) K/mm3 RBC (4.2-5.4) M/mm3 Hgb (12.0-15.0) g/dL Hct (37.0-47.0) % MCV (80-100) fl MCH (26-34) pg MCHC (32-36) g/dl RDW (11.5-14.5) % Plt Count (150-375) k/mm3 MPV (7.4-10.4) fl Immature Gran % (Auto) (0-0.5) % Neut % (Auto) (45.5-73.1) % Lymph % (Auto) (18.3-44.2) % [place] % (Auto) (2.6-8.5) % Eos % (Auto) (0-4.4) % Baso % (Auto) (0.2-1.2) % Lymph # (Auto) (0.9-3.2) K/mm3 [place] # (Auto) (0.1-0.6) K/mm3 Eos # (Auto) (0-0.3) K/mm3 Baso # (Auto) (0.0-0.1) K/mm3 Abs Immat Gran (auto) (0.00-0.031) K/mm3 Absolute Neuts (auto) (1.3-6.7) K/mm3 Absolute Nucleated RBC (0.0-0.012) K/mm3 Nucleated RBC % (0.0-0.2) % PT (11.1-14.7) Seconds INR APTT Cancelled (22.3-36.8) Seconds Sodium 135 L (137-145) mmol/L Potassium 3.6 (3.4-5.0) mmol/L Chloride 98 (98-107) mmol/L Carbon Dioxide 28 (22-30) mmol/L Anion Gap 9 (4-12) mmol/L BUN 10 (7-17) mg/dL Creatinine 0.60 L (0.7-1.0) mg/dL Estim Creat Clear Calc 71 ml/min Estimated GFR > 60 (59 - ) Glucose 167 H (65-110) mg/dL POC Capillary Glucose 172 H (65-105) mg/dl Lactic Acid (0.7-2.0) mmol/L Calcium 8.6 (8.4-10.2) mg/dL Phosphorus 3.9 (2.5-4.5) mg/dL Magnesium 1.8 (1.6-2.3) mg/dL Total Bilirubin 0.5 (0.2-1.3) mg/dL AST 21 (14-36) U/L ALT 10 (6-35) U/L Alkaline Phosphatase 115 (38-126) U/L Troponin I < 0.012 (0.000-0.034) ng/mL NT-Pro-B Natriuret Pep 898 H (19.9-100) pg/mL Total Protein 7.0 (6.3-8.2) g/dL Albumin 3.7 (3.5-5.1) g/dL Lipase 22 L (23-300) U/L Urine Color Yellow (Yellow) Urine Appearance Cloudy H (Clear) Urine pH 7.5 (5.0-9.0) Ur Specific [place] 1.014 (1.001-1.035) Urine Protein Trace (Negative) mg/dL Urine Glucose (UA) Negative (Negative) mg/dL Urine Ketones Trace H (Negative) mg/dL Ur Blood (Man) Negative (Negative) Urine Nitrate Negative (Negative) Urine Bilirubin Negative (Negative) Urine Urobilinogen 2.0 H (<2.0) mg/dL Add Ur Microanalysis Reviewed Leukocyte Esterase Rfl 2+ H (Negative) COY/UL Urine RBC 3-5 H (0-2) /hpf Urine WBC 0-5 (0-3) /hpf Ur Squamous Epith Cells Moderate (Few) /hpf Urine Bacteria Rare /hpf Urine Casts 0-2 Nasal MRSA (PCR) Influenza A (RT-PCR) Negative (Negative) Influenza B (RT-PCR) Negative (Negative) RSV (RT-PCR) Negative (Negative) SARS-CoV-2 RNA (RT-PCR) Negative (Negative) 08/12/24 Range/Units 15:59 WBC (4.5-10.0) K/mm3 RBC (4.2-5.4) M/mm3 Hgb (12.0-15.0) g/dL Hct (37.0-47.0) % MCV (80-100) fl MCH (26-34) pg MCHC (32-36) g/dl RDW (11.5-14.5) % Plt Count (150-375) k/mm3 MPV (7.4-10.4) fl Immature Gran % (Auto) (0-0.5) % Neut % (Auto) (45.5-73.1) % Lymph % (Auto) (18.3-44.2) % [place] % (Auto) (2.6-8.5) % Eos % (Auto) (0-4.4) % Baso % (Auto) (0.2-1.2) % Lymph # (Auto) (0.9-3.2) K/mm3 [place] # (Auto) (0.1-0.6) K/mm3 Eos # (Auto) (0-0.3) K/mm3 Baso # (Auto) (0.0-0.1) K/mm3 Abs Immat Gran (auto) (0.00-0.031) K/mm3 Absolute Neuts (auto) (1.3-6.7) K/mm3 Absolute Nucleated RBC (0.0-0.012) K/mm3 Nucleated RBC % (0.0-0.2) % PT (11.1-14.7) Seconds INR APTT (22.3-36.8) Seconds Sodium (137-145) mmol/L Potassium (3.4-5.0) mmol/L Chloride (98-107) mmol/L Carbon Dioxide (22-30) mmol/L Anion Gap (4-12) mmol/L BUN (7-17) mg/dL Creatinine (0.7-1.0) mg/dL Estim Creat Clear Calc ml/min Estimated GFR (59 - ) Glucose (65-110) mg/dL POC Capillary Glucose (65-105) mg/dl Lactic Acid 0.8 (0.7-2.0) mmol/L Calcium (8.4-10.2) mg/dL Phosphorus (2.5-4.5) mg/dL Magnesium (1.6-2.3) mg/dL Total Bilirubin (0.2-1.3) mg/dL AST (14-36) U/L ALT (6-35) U/L Alkaline Phosphatase (38-126) U/L Troponin I < 0.012 (0.000-0.034) ng/mL NT-Pro-B Natriuret Pep (19.9-100) pg/mL Total Protein (6.3-8.2) g/dL Albumin (3.5-5.1) g/dL Lipase (23-300) U/L Urine Color (Yellow) Urine Appearance (Clear) Urine pH (5.0-9.0) Ur Specific [place] (1.001-1.035) Urine Protein (Negative) mg/dL Urine Glucose (UA) (Negative) mg/dL Urine Ketones (Negative) mg/dL Ur Blood (Man) (Negative) Urine Nitrate (Negative) Urine Bilirubin (Negative) Urine Urobilinogen (<2.0) mg/dL Add Ur Microanalysis Leukocyte Esterase Rfl (Negative) COY/UL Urine RBC (0-2) /hpf Urine WBC (0-3) /hpf Ur Squamous Epith Cells (Few) /hpf Urine Bacteria /hpf Urine Casts Nasal MRSA (PCR) Pending Influenza A (RT-PCR) (Negative) Influenza B (RT-PCR) (Negative) RSV (RT-PCR) (Negative) SARS-CoV-2 RNA (RT-PCR) (Negative) Critical Care Time Critical Care Time Critical Care Time: Yes Total Critical Care Time: 60 Discharge Plan Discharge Clinical Impression: Fever of unknown origin, Altered mental status, Pain in wrist Patient Disposition: Still a Patient Condition: Guarded Prognosis Prescriptions: No Action Cosentyx Pen 150 mg/mL Pen Injector 300 mg SUBCUT [id number] Patient Comments: DOSE DUE 07/30 nicotine [Nicoderm CQ] 21 mg/24 hr Patch 24 Hour 1 patch transdermal DAILY Qty: 10 0RF trazodone 50 mg tablet 100 mg PO HS Qty: 60 1RF tramadol 50 mg tablet 50 mg PO Q6H PRN (Reason: pain) Qty: 20 0RF pantoprazole 40 mg tablet,delayed release (DR/EC) 40 mg PO QAM Atorvastatin [Lipitor] 40 mg PO DAILY Qty: 30 0RF isosorbide mononitrate 30 mg tablet extended release 24 hr 15 mg PO DAILY Qty: 30 0RF primidone 50 mg tablet 50 mg PO QAM aspirin 81 mg Tablet,Delayed Release (Dr/Ec) 81 mg PO DAILY lamotrigine 25 mg tablet 75 mg PO Q12H metoprolol succinate 50 mg tablet extended release 24 hr 50 mg PO QAM amlodipine [Norvasc] 5 mg tablet 10 mg PO HS Qty: 180 3RF duloxetine 60 mg capsule,delayed release(DR/EC) 120 mg PO QAM Qty: 90 1RF hydrocortisone [Anusol-HC] 2.5 % cream with perineal applicator 1 applic RECTAL DAILY PRN (Reason: hemorrhoids) Qty: 30 0RF losartan 100 mg tablet 100 mg PO DAILY Qty: 90 3RF thiamine HCl (vitamin B1) [Vitamin B-1] 100 mg Tablet 100 mg PO QAM Qty: 30 0RF hydralazine 25 mg Tablet 25 mg PO TID Qty: 90 0RF clopidogrel 75 mg Tablet 75 mg PO QAM Qty: 30 0RF docusate sodium 100 mg Capsule 100 mg PO BID Qty: 60 0RF folic acid 1 mg Tablet 1 mg PO DAILY Qty: 30 0RF hydroxyzine HCl 25 mg Tablet 25 mg PO QAM Qty: 30 0RF Ocuvite with Lutein 300 mcg-200 mg-27 mg-2 mg Tablet 2 tablet PO QAM Qty: 60 0RF acetaminophen 500 mg Tablet 500 mg PO BID PRN (Reason: pain) Qty: 30 0RF gabapentin 300 mg capsule 600 mg PO BID Qty: 270 1RF Follow-up/Referrals: Hugh Mendez MD [Primary Care Provider] -
[2024-08-12 17:06] LABS: CRP 8.7 mg/dL (<1.0)
[2024-08-12] MEDS: VANCOMYCIN 1,250 MG/NS 250 ML 1,250 MG/250 ML BAG 166.67 MG IVPB (17:15)
[2024-08-12 17:18] LABS: Erythrocyte Sedimentation Rate 125 mm/hr (0-20)
[2024-08-12] MEDS: VANCOMYCIN 1,000 MG/NS 250 ML 1,000 MG/250 ML BAG 250 MG IVPB (17:19)
[2024-08-12 17:36] LABS: MRSA (PCR) NOT DETECTED (NOT DETECTE)
[2024-08-12] MEDS: SODIUM CHLORIDE 0.9% IV 1,000 ML 999 ML IV CONT ×2 (17:49→19:00)
--- NOTE | 2024-08-12 19:06 | PM.IMHP ---
H&P: HPI History of Present Illness Date/Time: 08/12/24 19:06 Chief Complaint: AMS Narrative: 78 y/o F presents here with altered mental status with PMH of anemia, chronic pain, depression/anxiety, emphysema, GERD, fatty liver, basal cell carcinoma, HTN, HLD, KIANNA (not on CPAP), psoriasis, seizures, and diabetes. The patient presents here from [facility] via EMS for further evaluation of altered mental status. HPI obtained through chart review and ED provider report. She is currently at [facility] for rehab post CVA. Since CVA has had multiple falls and seen at [facility] for clearance, most recent only on 08/07. The patient is typically A&O x4 at baseline. Noted to be A&O x1 upon awakening this morning. She currently has spontaneous eye opening, so speech terri earlier which now appears improved, having some difficulty with word finding however appears slightly somnolent. She is reporting no abdominal pain, headache, neck pain, neck stiffness, focal weakness, focal numbness, dysarthria. Remains A&O x1. Initial VS at presentation: 100.3? F, HR 80, R 21, 175/73, and 96% on RA. ED workup showed: No leukocytosis, hemoglobin 9.4 (previously 9.3 on 08/07/2024), normal coags, sodium 135, creatinine 0.6 and GFR >60, lactic 0.8, CRP 8.7, negative troponin x2, BNP 898, lipase 22, UA appears contaminated. Viral PCR negative. Nasal MRSA negative. Head CT showed no acute intracranial findings. CXR showed no acute cardiopulmonary pathology. CT of the abdomen/chest/pelvis showed stool distending the rectum. R Elbow XR showed no acute osseous abnormality. R shoulder XR showed lucency in the area of the greater tuberosity of the humerus which is most likely degenerative, fracture less likely and severe osteoarthritic changes in the glenohumeral joint. 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 Review of Systems Review of Systems: ROS unobtainable: Yes unobtainable due to mental status (Limited, A&O 1) [facility] Past Medical History Medical History Anal fissure Anemia Ankylosing spondylitis of multiple sites in spine Anxiety B12 deficiency Bronchitis Chronic pain Depression Diverticulitis Emphysema of lung Fatty liver Gastro-esophageal reflux disease without esophagitis Hallucinations History of basal cell carcinoma (BCC) Hypertension Macular degeneration Mixed hyperlipidemia Obstructive sleep apnea Osteoporosis Peripheral neuropathy Psoriasis Seizures (1973) Seronegative rheumatoid arthritis of multiple sites patient of Dr. Shahriar Nixon Sleep apnea in adult does not use CPAP Tobacco abuse Type 2 diabetes mellitus Surgical History Surgical History History of appendectomy History of benign breast biopsy History of carpal tunnel release History of cataract extraction with lens replacement History of section History of colonoscopy History of dilatation and curettage History of lumbar laminectomy History of sinus surgery History of tubal ligation Status post anal fissurectomy Family History Family History Mother Hypertension, Onset Age: 97 Father Family history of malignant neoplasm Family history of lung cancer, Onset Age: 94 Colon cancer Sibling Family history of blood dyscrasia Other Family history of arthritis Family history of seizure disorder No family history of cardiovascular disease No family history of diabetes mellitus No family history of hypertension Prediabetes Social History Social History Social History: Surrogate medical decision maker: Misha Nam, spouse. Code status: Long discussion about options and the patient wishes to be DNR Smoking packs per day: 0.5 Smoking cigarettes per day: 10.0 Years smoked: 64 Smoking pack-years: 32.00 Smoking status: Current some day smoker Tobacco type: cigarettes Second hand tobacco smoke exposure: Yes Additional smoking assessment comments: 1-1.5 ppd for 59 years Alcohol intake: current Drinks per week: 14 Alcohol use details: beer-occasionally Substance use: never Do You Feel Safe in your Home?: Yes Lack of Transportation: No Lack of Food: Never True Current Housing: I Have Housing Concerned About Future Housing: No Difficulty Paying Gas/Electric Bills: No Difficulty Paying for Meds: No Currently Unemployed: No Education: Master's Degree or Higher Difficulty w/ Childcare or Family Care: No Living arrangements: with family Additional living arrangements comments: Lives with in [place]. Gender identity (if verbalized by the patient): Female Sexual Orientation (if Verbalized by the Patient): Straight or Heterosexual Spiritual care concerns: No Meds Home Medications and Allergies Home Medications Medication Instructions Recorded Confirmed Type aspirin 81 mg tablet,delayed 81 mg PO DAILY 10/10/23 08/12/24 History release lamotrigine 25 mg tablet 75 mg PO BID 10/10/23 08/12/24 History metoprolol succinate 50 mg 50 mg PO DAILY 10/10/23 08/12/24 History tablet,extended release 24 hr primidone 50 mg tablet 50 mg PO DAILY 10/10/23 08/12/24 History amlodipine 5 mg tablet (Norvasc) 10 mg PO HS #180 tabs 05/20/24 08/12/24 Rx hydrocortisone 2.5 % topical cream 1 applic RECTAL DAILY PRN 06/24/24 08/12/24 Rx with perineal applicator hemorrhoids #30 grams (Anusol-HC) pantoprazole 40 mg tablet,delayed 40 mg PO DAILY 06/30/24 08/12/24 History release Atorvastatin [Lipitor] 40 mg PO DAILY #30 tab-caps 07/03/24 08/12/24 Rx acetaminophen 500 mg tablet 500 mg PO BID PRN pain #30 tabs 07/15/24 08/12/24 Rx docusate sodium 100 mg capsule 100 mg PO BID #60 caps 07/15/24 08/12/24 Rx folic acid 1 mg tablet 1 mg PO DAILY #30 tabs 07/15/24 08/12/24 Rx gabapentin 300 mg capsule 600 mg PO BID #270 caps 07/15/24 08/12/24 Rx hydralazine 25 mg tablet 25 mg PO TID #90 tabs 07/15/24 08/12/24 Rx losartan 100 mg tablet 100 mg PO DAILY #90 tabs 07/16/24 08/12/24 Rx isosorbide mononitrate 30 mg 15 mg PO DAILY #30 tabs 07/20/24 08/12/24 Rx tablet,extended release 24 hr secukinumab 150 mg/mL subcutaneous 300 mg subcut Q2BLEVB 07/30/24 08/12/24 History pen injector (Cosentyx Pen) nicotine 21 mg/24 hr daily 1 patch transdermal DAILY #10 ea 08/06/24 08/12/24 Rx transdermal patch (Nicoderm CQ) tramadol 50 mg tablet 50 mg PO Q6H PRN pain #20 tabs 08/06/24 08/12/24 Rx trazodone 50 mg tablet 100 mg PO HS #60 tabs 08/06/24 08/12/24 Rx clopidogrel 75 mg tablet 75 mg PO DAILY 08/12/24 08/12/24 History duloxetine 60 mg capsule,delayed 120 mg PO DAILY 08/12/24 08/12/24 History release hydroxyzine HCl 25 mg tablet 25 mg PO DAILY 08/12/24 08/12/24 History thiamine HCl (vitamin B1) 100 mg 100 mg PO DAILY 08/12/24 08/12/24 History tablet (Vitamin B-1) vit A 300 mcg-C 200 mg-E 27 2 tablet PO DAILY 08/12/24 08/12/24 History mg-lutein 2 mg and minerals tablet (Ocuvite with Lutein) Allergies Allergy/AdvReac Type Severity Reaction Status Date / Time cephalexin Allergy Severe Anaphylaxis Verified 08/12/24 14:26 Vital Signs Vital Signs - 24 hr 08/12/24 12:14 08/12/24 12:41 08/12/24 14:01 Temperature 100.3 F H Pulse Rate 80 85 Respiratory Rate 21 H 15 Blood Pressure 175/73 H 164/79 H Pulse Oximetry 96 95 Oxygen Delivery Room Air Room Air 08/12/24 14:16 08/12/24 14:40 08/12/24 15:40 Temperature 99.8 F H 100.7 F H 99.8 F H Pulse Rate 86 Respiratory Rate 17 Blood Pressure 176/75 H Pulse Oximetry 98 Oxygen Delivery 08/12/24 16:29 08/12/24 17:23 Temperature 100.5 F H 98.3 F Pulse Rate 91 Respiratory Rate 18 Blood Pressure 144/67 H Pulse Oximetry 95 Oxygen Delivery Exam Const: General: comfortable and no acute distress Other: , female, elderly, mildly ill-appearing HENMT: Face/Nose/Sinus: Normal nares present Mouth: Yes dry mucous membranes Eyes: General: appearance normal, both eyes and all related structures Sclera: sclerae normal Pupils: Equal, round and reactive pupils present EOM: EOMs intact bilaterally Resp: Effort & Inspection: normal respiratory effort Auscultation: clear to auscultation bilaterally Cardio: Rate: regular rate Rhythm: regular rhythm Other: S1-S2 present without murmur, rub, ectopy GI: Other: Abdomen soft, nondistended, nontender Skin: General skin exam: normal color and no rashes or lesions noted Wounds: no wounds Neuro: Other: Generalized weakness. A&O x1. Some intermittent word-finding difficulty, appears more so to be difficulty recalling situational facts versus specific words. Visitor Use Assistant and plantar flexion are 4+ and equal bilaterally. Patient too weak to observe drift. No facial droop. Extrem: General: normal exam except as noted Other: Mild erythema to right wrist. Very tender. Psych: Other: Poor insight and judgment at present, pleasant H&P: Results Labs Labs: Short CBC 08/12/24 Range/Units 12:54 WBC 7.1 (4.5-10.0) K/mm3 Hgb 9.4 L (12.0-15.0) g/dL Hct 29.6 L (37.0-47.0) % Plt Count 345 (150-375) k/mm3 BMP 08/12/24 12:54 Sodium 135 L Potassium 3.6 Chloride 98 Carbon Dioxide 28 BUN 10 Creatinine 0.60 L Glucose 167 H Calcium 8.6 Cardiac Enzymes 08/12/24 08/12/24 Range/Units 12:54 15:59 Troponin I < 0.012 < 0.012 (0.000-0.034) ng/mL Liver Function 08/12/24 Range/Units 12:54 Total Bilirubin 0.5 (0.2-1.3) mg/dL AST 21 (14-36) U/L ALT 10 (6-35) U/L Alkaline Phosphatase 115 (38-126) U/L Albumin 3.7 (3.5-5.1) g/dL Urine 08/12/24 Range/Units 12:54 Urine Color Yellow (Yellow) Urine Appearance Cloudy H (Clear) Urine pH 7.5 (5.0-9.0) Ur Specific [place] 1.014 (1.001-1.035) Urine Protein Trace (Negative) mg/dL Urine Glucose (UA) Negative (Negative) mg/dL Assessment and Plan Assessment and plan (1) Altered mental status: Qualifiers: Altered mental status type: disorientation Qualified Code(s): R41.0 - Disorientation, unspecified Code(s): R41.82 - Altered mental status, unspecified Status: Acute Assessment and Plan: - Head CT: No acute intracranial findings - viral PCR and MRSA PCR negative - UA appears contaminated, UC ordered - Hgb stable - CT chest/abd/pelvis: Stool distends the rectum. - no significant electrolyte derangements - troponin <0.012 x2 - suspect acute metabolic encephalopathy given fever, cannot exclude new CVA. Will obtain MRI. 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 No acute osseous abnormality. reporting significant right wrist pain. Possibility of septic joint. ED provider ultrasounded wrist, no fluid collection significant enough for tap. - blood cultures pending - lactic 0.8, CRP 8.7, WBC 7.1. trend crp. - IV fluids at 125 mL/hour - antipyretics prn - started on broad spectrum abx (allergy to Keflex): Vancomycin, Flagyl, Levaquin given concern for bacteremia given no other clear source. 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 insulin use: without [facility] use Diabetes mellitus complication status: without complication Qualified Code(s): E11.9 - Type 2 diabetes mellitus without complications Code(s): E11.9 - Type 2 diabetes mellitus without complications Status: Chronic Assessment and Plan: - hypoglycemia protocol - POC blood glucose ACHS - not currently on home medications - correct regimen ordered - high dose TIDWM, based off BMI - A1C 9.3% on 06/30/2024 (4) Anemia: Qualifiers: Anemia type: unspecified type Qualified Code(s): D64.9 - Anemia, unspecified Code(s): D64.9 - Anemia, unspecified Status: Chronic Assessment and Plan: - Hgb 9.4, previously 9.3 on 08/07/2024 - monitor (5) Hypertension: Qualifiers: Hypertension type: essential hypertension Qualified Code(s): I10 - Essential (primary) hypertension Code(s): I10 - Essential (primary) hypertension Status: Chronic Assessment and Plan: - chronic, currently 157/69 - continue home medications: Metoprolol ER 50 mg daily, losartan 100 mg daily, Imdur 15 mg daily, hydralazine 25 mg t.i.d., amlodipine 10 mg HS - monitor (6) Frequent falls: Code(s): R29.6 - Repeated falls Status: Acute Assessment and Plan: - fall precautions Plan Diet: Heart healthy GI Prophylaxis: Not currently indicated DVT Prophylaxis: SCDs Lines: Peripheral Code Status: Full code Quality VTE Prophylaxis VTE prophylaxis: mechanical ordered Hospitalist MIPS Advance Care Plan I have confirmed that the patient's Advanced Care Plan is present, code status is documented, or surrogate decision maker is listed in patient medical record.: Yes Medication Reconciliation I have utilized all available resources to obtain, update and review the patients current medications (includes all prescriptions, OTC, herbals, cannabis, and nutritional supplements).: Yes
--- NOTE | 2024-08-12 19:26 | PC.NURSE ---
This RN attempted to call report to, staff states the room is not clean and may have to move to a different room per home housekeeper
[2024-08-12 20:10] LABS: Glucose Point of Care 105 mg/dl (65-105)
[2024-08-12] MEDS: SODIUM CHLORIDE 0.9% IV 700 ML 999 ML IV CONT (20:25)
[2024-08-12] MEDS: LACTATED RINGERS 1,000 ML 125 ML IV CONT (20:26)
--- NOTE | 2024-08-12 20:43 | ADMGEN ---
This patient, Blanca Nam, was admitted to Medical Room 347-. Patient/family oriented to hospital policies and general routines including ID bracelet, bed and alarms, visiting hours, pain management, procedures, bathroom and other care routines, personal items, smoking policy, room service/diet, and visiting hours. Information on how to activate the Rapid Response Team has been discussed. Patient/Family are encouraged to report perceived risks to care and to ask questions if they do not understand what they are told or what they should do.
[2024-08-13] MEDS: metroNIDAZOLE 500 MG/ISO 100ML 500 MG/100 ML BAG 100 MG IVPB ×3 (05:36→20:53)
[2024-08-13] MEDS: LACTATED RINGERS 1,000 ML 125 ML IV CONT ×2 (05:36→20:54)
[2024-08-13] MEDS: hydrALAZINE HCL 25 MG TABLET PO ×3 (05:36→20:52)
[2024-08-13 06:00] VITALS: BP 162/61; PULSE 92; RESP 18; TEMP 36.9; O2SAT 95
[2024-08-13 06:27] LABS: Basophils Percent Auto 0.2 % (0.2-1.2); Eosinophils Percent Auto 0.5 % (0-4.4); Hematocrit 26.2 % (37.0-47.0); Hemoglobin 8.3 g/dL (12.0-15.0); Immature Granulocyte Absolute 0.06 K/mm3 (0.00-0.031); Immature Granulocyte Percent A 1.4 % (0-0.5); Lymphocytes Absolute Auto 0.86 K/mm3 (0.9-3.2); Lymphocytes Percent Auto 19.7 % (18.3-44.2); Mean Corpuscular HGB Conc 31.7 g/dl (32-36); Mean Corpuscular Hemoglobin 26.7 pg (26-34); Mean Corpuscular Volume 84.2 fl (80-100); Mean Platelet Volume 9.8 fl (7.4-10.4); Monocytes Absolute Auto 0.4 K/mm3 (0.1-0.6); Monocytes Percent Auto 9.2 % (2.6-8.5); Platelet Count Result 285 k/mm3 (150-375); Red Blood Count 3.11 M/mm3 (4.2-5.4); Red Cell Distribution Width 15.6 % (11.5-14.5); White Blood Count 4.4 K/mm3 (4.5-10.0)
[2024-08-13 06:42] LABS: Alanine Aminotransferase 9 U/L (6-35); Albumin Level 3.1 g/dL (3.5-5.1); Alkaline Phosphatase 90 U/L (38-126); Anion Gap 8 mmol/L (4-12); Aspartate Amino Transferase 19 U/L (14-36); Bilirubin,Total 0.5 mg/dL (0.2-1.3); Blood Urea Nitrogen 6 mg/dL (7-17); Calcium 8.1 mg/dL (8.4-10.2); Carbon Dioxide 28 mmol/L (22-30); Chloride 101 mmol/L (98-107); Estimated CRCL calculation 72 ml/min; Estimated Glomerular Filt Rate > 60; Glucose 135 mg/dL (65-110); Potassium 2.8 mmol/L (3.4-5.0); Sodium 137 mmol/L (137-145)
[2024-08-13 06:50] LABS: CRP 14.4 mg/dL (<1.0)
--- NOTE | 2024-08-13 06:58 | PM.IMPN ---
Progress Note: A&P Assessment and Plan (1) Altered mental status: Qualifiers: Altered mental status type: disorientation Qualified Code(s): R41.0 - Disorientation, unspecified Code(s): R41.82 - Altered mental status, unspecified Status: Acute Assessment and Plan: - Head CT: No acute intracranial findings - viral PCR and MRSA PCR negative - troponin <0.012 x2 - UA appears contaminated, UC pending - Blood culture pending - Hgb stable - CT chest/abd/pelvis: Stool distends the rectum. - suspect acute metabolic encephalopathy given fever, cannot exclude new CVA. Will obtain MRI. - hold home trazodone and tramadol (2) Fever of unknown origin: Code(s): R50.9 - Fever, unspecified Status: Acute Assessment and Plan: Lactic 0.8, CRP 8.7, WBC 7.1. on admission. Fevers as high as 100.7 on 08/12. 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 No acute osseous abnormality. reporting significant right wrist pain. Possibility of septic joint. ED provider ultrasounded wrist, no fluid collection significant enough for tap. - Elbow XR: No acute osseous abnormality of the right elbow. - Shoulder XR: Lucency in the area of the greater tuberosity of the humerus is most likely degenerative. Fracture is less likely. CT is better for evaluation. Severe osteoarthritic changes of the glenohumeral joint. - Right UE CT ordered - CT abd/pelvis unrevealing - CTA chest ordered as PE can occasionally cause fever - IV fluids at 125 mL/hour - antipyretics prn - started on broad spectrum abx (allergy to Keflex): Started on Vancomycin, Flagyl, Levaquin given concern for bacteremia given no other clear source. Vancomycin discontinued on 08/13 as MRSA negative. (3) Anemia: Qualifiers: Anemia type: unspecified type Qualified Code(s): D64.9 - Anemia, unspecified Code(s): D64.9 - Anemia, unspecified Status: Chronic Assessment and Plan: Hgb 9.4 on admission, previously 9.3 on 08/07/2024 - H/HH 8.3/26.2 on am labs - No signs of obvious bleeding - monitor (4) Type 2 diabetes mellitus: Qualifiers: Diabetes mellitus complication status: without complication Diabetes mellitus correction insulin use: without terminal clerk use Qualified Code(s): E11.9 - Type 2 diabetes mellitus without complications Code(s): E11.9 - Type 2 diabetes mellitus without complications Status: Chronic Assessment and Plan: - hypoglycemia protocol - POC blood glucose ACHS - not currently on home medications - correct regimen ordered - high dose TIDWM, based off BMI - A1C 9.3% on 06/30/2024 (5) Hypertension: Qualifiers: Hypertension type: essential hypertension Qualified Code(s): I10 - Essential (primary) hypertension Code(s): I10 - Essential (primary) hypertension Status: Chronic Assessment and Plan: Chronic, continue home medications - Metoprolol ER 50 mg daily - Losartan 100 mg daily - Imdur 15 mg daily - Hydralazine 25 mg t.i.d. - Amlodipine 10 mg HS - monitor (6) Frequent falls: Code(s): R29.6 - Repeated falls Status: Acute Assessment and Plan: - fall precautions - PT/OT Time Spent With Patient Time with patient: 25 - 35 minutes Subjective Date/time seen: 08/13/24 06:58 Interval history: 78 y/o F presents to the hospital from [facility] with altered mental status with PMH of anemia, chronic pain, depression/anxiety, emphysema, GERD, fatty liver, basal cell carcinoma, HTN, HLD, KIANNA (not on CPAP), psoriasis, seizures, and diabetes. Patient is pleasant lying comfortably in bed with her at bedside. she is alert and oriented x4 at time of assessment and has no complaints. She denies chest pain, shortness a breath, nausea/ vomiting, and abdominal pain. Per she was recently started a new seizure medication however this is not seen on her new home meds. Patient remains afebrile this time. Will order a CT of the upper arm as per radiology recommendations. Review of Systems Review of Systems: All systems reviewed & are unremarkable except as noted in HPI and below Exam Narrative: AF HR 86 RR 18 SpO2 96 BP 150/68 General: female in no acute respiratory distress who is nontoxic appearing, lying semi recumbent in bed. HEENT: Normocephalic. Atraumatic. Extraocular movement intact. Sclera clear and anicteric. No facial asymmetry. Chest: Lungs are clear to auscultation bilaterally. No wheezes or crackles. CV: Heart was regular rate and rhythm. S1-S2. No murmurs, gallops, or rubs. Abd: Abdomen was soft. Nontender. Nondistended. Positive bowel sounds. No organomegaly or masses. Ext: No clubbing, cyanosis, or edema. 2+ DP pulses bilaterally. Neuro: Patient is alert and oriented x4. Strength is symmetrical. Swelling to the right wrist with pain to palpation along the radial side and into the dorsum of the hand. ROM intact. Cranial nerves 2-12 are intact. Speech is clear. Psych: Normal mood and affect. Patient is pleasant and cooperative. Skin: Warm and dry. No rashes noted. Objective Data Vital Signs Vital Signs: Vital Signs - 24 hr 08/12/24 12:14 08/12/24 12:41 08/12/24 14:01 Temperature 100.3 F H Pulse Rate 80 85 Respiratory Rate 21 H 15 Blood Pressure 175/73 H 164/79 H Pulse Oximetry 96 95 Oxygen Delivery Room Air Room Air 08/12/24 14:16 08/12/24 14:40 08/12/24 15:40 Temperature 99.8 F H 100.7 F H 99.8 F H Pulse Rate 86 Respiratory Rate 17 Blood Pressure 176/75 H Pulse Oximetry 98 Oxygen Delivery 08/12/24 16:29 08/12/24 17:23 08/12/24 19:08 Temperature 100.5 F H 98.3 F 100.3 F H Pulse Rate 91 87 Respiratory Rate 18 17 Blood Pressure 144/67 H 157/69 H Pulse Oximetry 95 98 Oxygen Delivery 08/12/24 20:35 08/13/24 06:00 Temperature 99.0 F 98.4 F Pulse Rate 81 92 Respiratory Rate 16 18 Blood Pressure 155/58 H 162/61 H Pulse Oximetry 94 95 Oxygen Delivery Intake/Output Intake/Output: Intake & Output 08/10/24 08/11/24 08/12/24 08/13/24 23:59 23:59 23:59 23:59 Intake Total 1850 1240 Output Total 50 1200 Balance 1800 40 Meds/Results Medications: Active Medications Generic Name Dose Route Start Last Admin Trade Name Freq PRN Reason Stop Dose Admin Acetaminophen 650 mg 08/12/24 16:33 08/12/24 16:40 Acetaminophen 650 Mg Suppository RECTAL 650 mg Q6H PRN Administration Mild Pain (1-3) or Fever Acetaminophen 500 mg 08/12/24 23:24 Acetaminophen 500 Mg Tablet PO BID PRN pain Amlodipine Besylate 10 mg 08/12/24 21:00 08/13/24 02:11 Amlodipine Besylate 10 Mg Tablet PO Not Given HS [facility] Aspirin 81 mg 08/13/24 09:00 Aspirin 81 Mg Enteric Tablet PO DAILY [facility] Atorvastatin Calcium 40 mg 08/13/24 09:00 Atorvastatin 40 Mg Tablet PO DAILY [facility] Clopidogrel Bisulfate 75 mg 08/13/24 09:00 Clopidogrel Bisulfate 75 Mg Tablet PO DAILY [facility] Dextrose 12.5 gm 08/12/24 19:23 Dextrose 50% 25 Gm/50 Ml Syringe IV PUSH PRN PRN Hypoglycemia Protocol Docusate Sodium 100 mg 08/13/24 09:00 Docusate Sodium 100 Mg Capsule PO Q12HR [facility] Duloxetine HCl 120 mg 08/13/24 09:00 Duloxetine Hcl 60 Mg Capsule.Dr PO DAILY [facility] Folic Acid 1 mg 08/13/24 09:00 Folic Acid 1 Mg Tablet PO DAILY [facility] Gabapentin 600 mg 08/13/24 09:00 Gabapentin 300 Mg Capsule PO BID [facility] Glucagon 1 mg 08/12/24 19:23 Glucagon For Inj 1 Mg Vial IM PRN PRN Hypoglycemia Protocol Glucose 15 gm 08/12/24 19:23 Glucose Oral Gel 15 Gm Of Glucse In 37.5 Gm Tube PO PRN PRN Hypoglycemia Protocol Hydralazine HCl 25 mg 08/13/24 06:00 08/13/24 05:36 Hydralazine Hcl 25 Mg Tablet PO 25 mg Q8HR [facility] Administration Hydrocortisone 1 applic 08/12/24 23:55 Hydrocortisone 2.5% Cream 30 Gm Tube RECTAL DAILY PRN hemorrhoids Hydroxyzine HCl 25 mg 08/13/24 09:00 Hydroxyzine Hcl 25 Mg Tablet PO DAILY [facility] Levofloxacin/Dextrose 750 mg in 150 mls @ 100 mls/hr 08/13/24 15:00 Levaquin 750 Mg/D5w 150 Ml IVPB Q24H [facility] Metronidazole 500 mg in 100 mls @ 100 mls/hr 08/12/24 22:00 08/13/24 05:36 Flagyl 500 Mg/Iso Soln 100 Ml IVPB 100 mls/hr Q8HR [facility] Administration Vancomycin HCl 1,500 mg in 500 mls @ 250 mls/hr 08/13/24 11:00 Vancomycin 1,500 Mg/Ns 500 Ml IVPB Q18H [facility] Lactated Ringer's 1,000 mls @ 125 mls/hr 08/12/24 18:10 08/13/24 05:36 Lr - Lactated Ringers Iv IV CONT 125 mls/hr .Q8H [facility] Administration Dextrose 1,000 mls @ 100 mls/hr 08/12/24 19:23 Dextrose 5% 1,000 Ml IVPB PRN PRN Hypoglycemia Protocol Insulin Aspart 4 - 8 units 08/13/24 08:00 Insulin Aspart (*Bkc) 100 Units/Ml SUB-Q TIDWM [facility] Protocol Isosorbide Mononitrate 15 mg 08/13/24 09:00 Isosorbide Mononitrate 15 Mg Tab.Er.24h PO DAILY [facility] Lamotrigine 75 mg 08/13/24 09:00 Lamotrigine 25 Mg Tablet PO Q12HR [facility] Losartan Potassium 100 mg 08/13/24 09:00 Losartan Potassium 100 Mg Tablet PO DAILY [facility] Metoprolol Succinate 50 mg 08/13/24 09:00 Metoprolol Succinate Ext Rel 50 Mg Tabcr PO DAILY [facility] Multivitamins/Minerals 2 tablet 08/13/24 09:00 Opti-Gen Tab PO DAILY [facility] Nicotine 1 patch 08/13/24 09:00 Nicotine (*Pbkc) 21 Mg Patch TRANSDERM DAILY [facility] Ondansetron HCl 4 mg 08/12/24 22:41 Ondansetron Inj 4 Mg/2 Ml Vial IV PUSH Q6H PRN Nausea And Vomiting Pantoprazole Sodium 40 mg 08/13/24 09:00 Pantoprazole 40 Mg Tablet PO DAILY [facility] Primidone 50 mg 08/13/24 09:00 Primidone 50 Mg Tablet PO DAILY [facility] Thiamine HCl 100 mg 08/13/24 09:00 Thiamine Hcl 100 Mg Tablet PO DAILY [facility] Radiology Results: ITS Impressions Head CT 08/12/24 13:14 IMPRESSION: No acute intracranial findings. Chest X-Ray 08/12/24 13:26 IMPRESSION: No acute cardiopulmonary pathology. Chest/Abdomen/Pelvis CT 08/12/24 14:03 IMPRESSION: 1. Stool distends the rectum. Elbow X-Ray 08/12/24 17:11 IMPRESSION: No acute osseous abnormality of the right elbow. Shoulder X-Ray 08/12/24 17:12 IMPRESSION: Lucency in the area of the greater tuberosity of the humerus is most likely degenerative. Fracture is less likely. CT is better for evaluation. Severe osteoarthritic changes of the glenohumeral joint. Wrist X-Ray 08/12/24 17:12 IMPRESSION: 1. 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 No acute osseous abnormality. Labs Labs: Laboratory Results - last 24 hr 08/12/24 08/12/24 08/12/24 12:53 12:54 12:54 WBC 7.1 RBC 3.49 L Hgb 9.4 L Hct 29.6 L MCV 84.8 MCH 26.9 MCHC 31.8 L RDW 15.8 H Plt Count 345 MPV 9.6 Immature Gran % (Auto) 0.7 H Neut % (Auto) 87.5 H Lymph % (Auto) 6.9 L Thomas % (Auto) 4.5 Eos % (Auto) 0.3 Baso % (Auto) 0.1 L Lymph # (Auto) 0.49 L Thomas # (Auto) 0.3 Eos # (Auto) 0.0 Baso # (Auto) 0.0 Abs Immat Gran (auto) 0.05 H Absolute Neuts (auto) 6.2 Absolute Nucleated RBC 0.000 Nucleated RBC % 0.0 ESR 125 H PT 14.9 H Cancelled INR 1.1 APTT Sodium Potassium Chloride Carbon Dioxide Anion Gap BUN Creatinine Estim Creat Clear Calc Estimated GFR Glucose POC Capillary Glucose Lactic Acid Calcium Phosphorus Magnesium Total Bilirubin AST ALT Alkaline Phosphatase Troponin I C-Reactive Protein 8.7 H NT-Pro-B Natriuret Pep Total Protein Albumin Lipase Urine Color Urine Appearance Urine pH Ur Specific Lyman Urine Protein Urine Glucose (UA) Urine Ketones Ur Blood (Man) Urine Nitrate Urine Bilirubin Urine Urobilinogen Add Ur Microanalysis Leukocyte Esterase Rfl Urine RBC Urine WBC Ur Squamous Epith Cells Urine Bacteria Urine Casts Nasal MRSA (PCR) Influenza A (RT-PCR) Influenza B (RT-PCR) RSV (RT-PCR) SARS-CoV-2 RNA (RT-PCR) 08/12/24 08/12/24 08/12/24 12:54 12:54 13:49 WBC RBC Hgb Hct MCV MCH MCHC RDW Plt Count MPV Immature Gran % (Auto) Neut % (Auto) Lymph % (Auto) Thomas % (Auto) Eos % (Auto) Baso % (Auto) Lymph # (Auto) Thomas # (Auto) Eos # (Auto) Baso # (Auto) Abs Immat Gran (auto) Absolute Neuts (auto) Absolute Nucleated RBC Nucleated RBC % ESR PT INR Cancelled APTT 29.6 Cancelled Sodium 135 L Potassium 3.6 Chloride 98 Carbon Dioxide 28 Anion Gap 9 BUN 10 Creatinine 0.60 L Estim Creat Clear Calc 71 Estimated GFR > 60 Glucose 167 H POC Capillary Glucose Lactic Acid Calcium 8.6 Phosphorus 3.9 Magnesium 1.8 Total Bilirubin 0.5 AST 21 ALT 10 Alkaline Phosphatase 115 Troponin I < 0.012 C-Reactive Protein NT-Pro-B Natriuret Pep 898 H Total Protein 7.0 Albumin 3.7 Lipase 22 L Urine Color Yellow Urine Appearance Cloudy H Urine pH 7.5 Ur Specific Lyman 1.014 Urine Protein Trace Urine Glucose (UA) Negative Urine Ketones Trace H Ur Blood (Man) Negative Urine Nitrate Negative Urine Bilirubin Negative Urine Urobilinogen 2.0 H Add Ur Microanalysis Reviewed Leukocyte Esterase Rfl 2+ H Urine RBC 3-5 H Urine WBC 0-5 Ur Squamous Epith Cells Moderate Urine Bacteria Rare Urine Casts 0-2 Nasal MRSA (PCR) Influenza A (RT-PCR) Negative Influenza B (RT-PCR) Negative RSV (RT-PCR) Negative SARS-CoV-2 RNA (RT-PCR) Negative 08/12/24 08/12/24 08/12/24 14:01 15:59 20:07 WBC RBC Hgb Hct MCV MCH MCHC RDW Plt Count MPV Immature Gran % (Auto) Neut % (Auto) Lymph % (Auto) Thomas % (Auto) Eos % (Auto) Baso % (Auto) Lymph # (Auto) Thomas # (Auto) Eos # (Auto) Baso # (Auto) Abs Immat Gran (auto) Absolute Neuts (auto) Absolute Nucleated RBC Nucleated RBC % ESR PT INR APTT Sodium Potassium Chloride Carbon Dioxide Anion Gap BUN Creatinine Estim Creat Clear Calc Estimated GFR Glucose POC Capillary Glucose 172 H 105 Lactic Acid 0.8 Calcium Phosphorus Magnesium Total Bilirubin AST ALT Alkaline Phosphatase Troponin I < 0.012 C-Reactive Protein NT-Pro-B Natriuret Pep Total Protein Albumin Lipase Urine Color Urine Appearance Urine pH Ur Specific Lyman Urine Protein Urine Glucose (UA) Urine Ketones Ur Blood (Man) Urine Nitrate Urine Bilirubin Urine Urobilinogen Add Ur Microanalysis Leukocyte Esterase Rfl Urine RBC Urine WBC Ur Squamous Epith Cells Urine Bacteria Urine Casts Nasal MRSA (PCR) Not detected Influenza A (RT-PCR) Influenza B (RT-PCR) RSV (RT-PCR) SARS-CoV-2 RNA (RT-PCR) 08/13/24 05:35 WBC 4.4 L RBC 3.11 L Hgb 8.3 L Hct 26.2 L MCV 84.2 MCH 26.7 MCHC 31.7 L RDW 15.6 H Plt Count 285 MPV 9.8 Immature Gran % (Auto) 1.4 H Neut % (Auto) 69.0 Lymph % (Auto) 19.7 Thomas % (Auto) 9.2 H Eos % (Auto) 0.5 Baso % (Auto) 0.2 Lymph # (Auto) 0.86 L Thomas # (Auto) 0.4 Eos # (Auto) 0.0 Baso # (Auto) 0.0 Abs Immat Gran (auto) 0.06 H Absolute Neuts (auto) 3.0 Absolute Nucleated RBC 0.000 Nucleated RBC % 0.0 ESR PT INR APTT Sodium 137 Potassium 2.8 L* Chloride 101 Carbon Dioxide 28 Anion Gap 8 BUN 6 L Creatinine 0.50 L Estim Creat Clear Calc 72 Estimated GFR > 60 Glucose 135 H POC Capillary Glucose Lactic Acid Calcium 8.1 L Phosphorus Magnesium Total Bilirubin 0.5 AST 19 ALT 9 Alkaline Phosphatase 90 Troponin I C-Reactive Protein 14.4 H NT-Pro-B Natriuret Pep Total Protein 6.0 L Albumin 3.1 L Lipase Urine Color Urine Appearance Urine pH Ur Specific Lyman Urine Protein Urine Glucose (UA) Urine Ketones Ur Blood (Man) Urine Nitrate Urine Bilirubin Urine Urobilinogen Add Ur Microanalysis Leukocyte Esterase Rfl Urine RBC Urine WBC Ur Squamous Epith Cells Urine Bacteria Urine Casts Nasal MRSA (PCR) Influenza A (RT-PCR) Influenza B (RT-PCR) RSV (RT-PCR) SARS-CoV-2 RNA (RT-PCR) Quality VTE Prophylaxis VTE prophylaxis: pharmacologic ordered
[2024-08-13 08:32] LABS: Glucose Point of Care 135 mg/dl (65-105)
[2024-08-13 08:45] VITALS: O2SAT 96
[2024-08-13] MEDS: POTASSIUM CHLORIDE INJ 40 MEQ in SODIUM CHLORIDE 0.9% IV 500 ML 130 MEQ IVPB (08:53)
[2024-08-13] MEDS: POTASSIUM CHLORIDE 20 MEQ ER TABLET 40 MEQ PO (08:54)
[2024-08-13] MEDS: GABAPENTIN 300 MG CAPSULE 600 MG PO ×2 (08:54→16:25)
[2024-08-13] MEDS: CLOPIDOGREL BISULFATE 75 MG TABLET PO (08:54)
[2024-08-13] MEDS: ATORVASTATIN 40 MG TABLET PO (08:55)
[2024-08-13] MEDS: FOLIC ACID 1 MG TABLET PO (08:55)
[2024-08-13] MEDS: DULoxetine HCL 60 MG CAPSULE.DR 120 MG PO (08:55)
[2024-08-13] MEDS: DOCUSATE SODIUM 100 MG CAPSULE PO ×2 (08:55→20:52)
[2024-08-13] MEDS: lamoTRIgine 25 MG TABLET 75 MG PO ×2 (08:55→20:52)
[2024-08-13] MEDS: ISOSORBIDE MONONITRATE 15 MG TAB.ER.24H PO (08:55)
[2024-08-13] MEDS: ASPIRIN 81 MG ENTERIC TABLET PO (08:55)
[2024-08-13] MEDS: PANTOPRAZOLE 40 MG TABLET PO (09:03)
[2024-08-13 09:04] VITALS: PULSE 83
[2024-08-13] MEDS: METOPROLOL SUCCINATE EXT REL 50 MG TABCR PO (09:04)
[2024-08-13] MEDS: OPTI-GEN TAB 2 TABLET PO (09:05)
[2024-08-13] MEDS: PRIMIDONE 50 MG TABLET PO (09:05)
[2024-08-13] MEDS: LOSARTAN POTASSIUM 100 MG TABLET PO (09:05)
[2024-08-13] MEDS: THIAMINE HCL 100 MG TABLET PO (09:05)
[2024-08-13 09:14] LABS: Procalcitonin 0.1 ng/mL
[2024-08-13 11:57] LABS: Glucose Point of Care 133 mg/dl (65-105)
[2024-08-13 14:00] VITALS: BP 150/68; PULSE 86; RESP 18; TEMP 36.8; O2SAT 96
[2024-08-13] MEDS: levoFLOXacin 750 MG/D5W 150 ML 750 MG/150 ML BAG 100 MG IVPB (15:19)
[2024-08-13 17:12] LABS: Glucose Point of Care 122 mg/dl (65-105)
[2024-08-13] MEDS: amLODIPine BESYLATE 10 MG TABLET PO (20:52)
[2024-08-13 22:00] VITALS: BP 150/57; PULSE 72; RESP 16; TEMP 36.5; O2SAT 94
[2024-08-14 06:00] VITALS: BP 152/56; PULSE 72; RESP 18; TEMP 36.3; O2SAT 96
[2024-08-14 06:08] LABS: Basophils Percent Auto 0.2 % (0.2-1.2); Eosinophils Absolute Auto 0.1 K/mm3 (0-0.3); Eosinophils Percent Auto 2.5 % (0-4.4); Hematocrit 25.8 % (37.0-47.0); Hemoglobin 8.1 g/dL (12.0-15.0); Immature Granulocyte Absolute 0.03 K/mm3 (0.00-0.031); Immature Granulocyte Percent A 0.6 % (0-0.5); Lymphocytes Absolute Auto 0.94 K/mm3 (0.9-3.2); Mean Corpuscular HGB Conc 31.4 g/dl (32-36); Mean Corpuscular Hemoglobin 26.5 pg (26-34); Mean Corpuscular Volume 84.3 fl (80-100); Mean Platelet Volume 9.5 fl (7.4-10.4); Monocytes Absolute Auto 0.5 K/mm3 (0.1-0.6); Monocytes Percent Auto 10.2 % (2.6-8.5); Neutrophils Absolute Auto 3.1 K/mm3 (1.3-6.7); Neutrophils Percent Auto 66.5 % (45.5-73.1); Platelet Count Result 275 k/mm3 (150-375); Red Blood Count 3.06 M/mm3 (4.2-5.4); Red Cell Distribution Width 15.4 % (11.5-14.5); White Blood Count 4.7 K/mm3 (4.5-10.0)
[2024-08-14] MEDS: LACTATED RINGERS 1,000 ML 125 ML IV CONT ×3 (06:14→20:41)
[2024-08-14] MEDS: metroNIDAZOLE 500 MG/ISO 100ML 500 MG/100 ML BAG 100 MG IVPB ×3 (06:15→20:42)
[2024-08-14] MEDS: hydrALAZINE HCL 25 MG TABLET PO ×3 (06:15→20:42)
[2024-08-14 06:27] LABS: Glucose Point of Care 122 mg/dl (65-105)
[2024-08-14 06:38] LABS: Alanine Aminotransferase 10 U/L (6-35); Alkaline Phosphatase 97 U/L (38-126); Anion Gap 7 mmol/L (4-12); Aspartate Amino Transferase 20 U/L (14-36); Bilirubin,Total 0.4 mg/dL (0.2-1.3); Blood Urea Nitrogen 6 mg/dL (7-17); Calcium 8.5 mg/dL (8.4-10.2); Carbon Dioxide 28 mmol/L (22-30); Chloride 102 mmol/L (98-107); Estimated CRCL calculation 72 ml/min; Estimated Glomerular Filt Rate > 60; Glucose 135 mg/dL (65-110); Potassium 3.1 mmol/L (3.4-5.0); Sodium 137 mmol/L (137-145)
--- NOTE | 2024-08-14 07:50 | P.PNIM_ITS ---
Progress Note: A&P Assessment and Plan (1) Altered mental status: Qualifiers: Altered mental status type: disorientation Qualified Code(s): R41.0 - Disorientation, unspecified Code(s): R41.82 - Altered mental status, unspecified Status: Acute Assessment and Plan: Spoke with patients RN at [facility] who states that patient did not have any seizure like activity, rather she was lethargic and not wanting to get up which prompted them to send her to the ED. She states that the patients Lamictal dose was incorrect at initial admission to the facility. She was only receiving 25 mg BID at first, however the mistake was corrected on 08/10 and her dose was increased to 75 mg BID which is her home dose. Suspect acute metabolic encephalopathy given fever, however no clear infectious source. - viral PCR and MRSA PCR negative - troponin <0.012 x2 - UA appears contaminated, UC negative - Blood culture pending - Hgb stable - CT chest/abd/pelvis: Stool distends the rectum. - Head CT: No acute intracranial findings - MRI 1. No acute intracranial process. 2. 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 3. Age-related changes including mild diffuse volume loss and cerebral and moderate scattered cerebral and pontine white matter T2 hyperintensity likely related to chronic small vessel ischemic disease. - hold home trazodone and tramadol AOx4 during assessment. (2) Fever of unknown origin: Code(s): R50.9 - Fever, unspecified Status: Acute Assessment and Plan: Lactic 0.8, CRP 8.7, WBC 7.1. on admission. Fevers as high as 100.7 on 08/12. Patient has been afebrile since 08/13. 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 No acute osseous abnormality. * reporting significant right wrist pain. Possibility of septic joint. ED provider ultrasounded wrist, no fluid collection significant enough for tap. - Elbow XR: No acute osseous abnormality of the right elbow. - Shoulder XR: Lucency in the area of the greater tuberosity of the humerus is most likely degenerative. Fracture is less likely. CT is better for evaluation. Severe osteoarthritic changes of the glenohumeral joint. - Right UE CT 1. Moderate right acromioclavicular and glenohumeral osteoarthritis. No acute osseous abnormality. 2. Erosive and hypertrophic change along the middle and superior facets of the right greater tuberosity consistent with rotator cuff disease with minimal calcific density in the distal infraspinatus tendon consistent with calcific tendinitis. - CT abd/pelvis unrevealing - CTA chest ordered as PE can occasionally cause fever No pulmonary embolism or other acute cardiopulmonary disease. - MRI 1. No acute intracranial process. 2. 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 3. Age-related changes including mild diffuse volume loss and cerebral and moderate scattered cerebral and pontine white matter T2 hyperintensity likely related to chronic small vessel ischemic disease. - IV fluids at 125 mL/hour - antipyretics prn - started on broad spectrum abx (allergy to Keflex): Started on Vancomycin, Flagyl, Levaquin given concern for bacteremia given no other clear source. Vancomycin discontinued on 08/13 as MRSA negative. 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: without half-way use Qualified Code(s): E11.9 - Type 2 diabetes mellitus without complications Code(s): E11.9 - Type 2 diabetes mellitus without complications Status: Chronic Assessment and Plan: - hypoglycemia protocol - POC blood glucose ACHS - not currently on home medications - correct regimen ordered - high dose TIDWM, based off BMI - A1C 9.3% on 06/30/2024 (5) Hypertension: Qualifiers: Hypertension type: essential hypertension Qualified Code(s): I10 - Essential (primary) hypertension Code(s): I10 - Essential (primary) hypertension Status: Chronic Assessment and Plan: Chronic, continue home medications - Metoprolol ER 50 mg daily - Losartan 100 mg daily - Imdur 15 mg daily - Hydralazine 25 mg t.i.d. - Amlodipine 10 mg HS - monitor (6) Frequent falls: Code(s): R29.6 - Repeated falls Status: Acute Assessment and Plan: - fall precautions - PT/OT Time Spent With Patient Time with patient: 25 - 35 minutes Subjective Date/time seen: 08/14/24 07:50 Interval history: 78 y/o F presents to the hospital from [facility] with altered mental status with PMH of anemia, chronic pain, depression/anxiety, emphysema, GERD, fatty liver, basal cell carcinoma, HTN, HLD, KIANNA (not on CPAP), psoriasis, seizures, and diabetes. Patient is pleasant sitting up in her chair with her at bedside. She remains AOx3 during assessment. She continues to endorse wrist pain, but denies tingling/numbness or decreased ROM. She has no other complaints denying chest pain, shortness of breath, palpitations, nausea/vomiting and abdominal pain. Spoke with patients RN at [facility] who states that patient did not have any seizure like activity, rather she was lethargic and not wanting to get up which prompted them to send her to the ED. She states that the patients Lamictal dose was incorrect at initial admission to the facility. She was only receiving 25 mg BID at first, however the mistake was corrected on 08/10 and her dose was increased to 75 mg BID which is her home dose. Review of Systems Review of Systems: All systems reviewed & are unremarkable except as noted in HPI and below Exam Narrative: AF HR 72 RR 18 SpO2 96 BP 152/56 General: female in no acute respiratory distress who is nontoxic appearing, lying semi recumbent in bed. HEENT: Normocephalic. Atraumatic. Extraocular movement intact. Sclera clear and anicteric. No facial asymmetry. Chest: Lungs are clear to auscultation bilaterally. No wheezes or crackles. CV: Heart was regular rate and rhythm. S1-S2. No murmurs, gallops, or rubs. Abd: Abdomen was soft. Nontender. Nondistended. Positive bowel sounds. No organomegaly or masses. Ext: No clubbing, cyanosis, or edema. 2+ DP pulses bilaterally. Neuro: Patient is alert and oriented x4. Strength is symmetrical. Swelling to the right wrist with pain to palpation along the radial side and into the dorsum of the hand. ROM intact. Speech is clear. Objective Data Vital Signs Vital Signs: Vital Signs - 24 hr 08/13/24 09:04 08/13/24 14:00 08/13/24 08:45 Temperature 98.3 F Pulse Rate 83 86 Respiratory Rate 18 Blood Pressure 150/68 H Pulse Oximetry 96 96 Oxygen Delivery Room Air 08/13/24 22:00 08/13/24 20:00 08/14/24 06:00 Temperature 97.7 F 97.4 F L Pulse Rate 72 72 Respiratory Rate 16 18 Blood Pressure 150/57 H 152/56 H Pulse Oximetry 94 96 Oxygen Delivery Room Air Intake/Output Intake/Output: Intake & Output 08/11/24 08/12/24 08/13/24 08/14/24 23:59 23:59 23:59 23:59 Intake Total 1850 3020 1600 Output Total 50 2010 1600 Balance 1800 1010 0 Meds/Results Medications: Active Medications Generic Name Dose Route Start Last Admin Trade Name Freq PRN Reason Stop Dose Admin Acetaminophen 650 mg 08/12/24 16:33 08/12/24 16:40 Acetaminophen 650 Mg Suppository RECTAL 650 mg Q6H PRN Administration Mild Pain (1-3) or Fever Acetaminophen 500 mg 08/12/24 23:24 Acetaminophen 500 Mg Tablet PO BID PRN pain Amlodipine Besylate 10 mg 08/12/24 21:00 08/13/24 20:52 Amlodipine Besylate 10 Mg Tablet PO 10 mg HS DORYS Administration Aspirin 81 mg 08/13/24 09:00 08/13/24 08:55 Aspirin 81 Mg Enteric Tablet PO 81 mg DAILY DORYS Administration Atorvastatin Calcium 40 mg 08/13/24 09:00 08/13/24 08:55 Atorvastatin 40 Mg Tablet PO 40 mg DAILY DORYS Administration Clopidogrel Bisulfate 75 mg 08/13/24 09:00 08/13/24 08:54 Clopidogrel Bisulfate 75 Mg Tablet PO 75 mg DAILY DORYS Administration Dextrose 12.5 gm 08/12/24 19:23 Dextrose 50% 25 Gm/50 Ml Syringe IV PUSH PRN PRN Hypoglycemia Protocol Docusate Sodium 100 mg 08/13/24 09:00 08/13/24 20:52 Docusate Sodium 100 Mg Capsule PO 100 mg Q12HR DORYS Administration Duloxetine HCl 120 mg 08/13/24 09:00 08/13/24 08:55 Duloxetine Hcl 60 Mg Capsule.Dr PO 120 mg DAILY DORYS Administration Folic Acid 1 mg 08/13/24 09:00 08/13/24 08:55 Folic Acid 1 Mg Tablet PO 1 mg DAILY DORYS Administration Gabapentin 600 mg 08/13/24 09:00 08/13/24 16:25 Gabapentin 300 Mg Capsule PO 600 mg BID DORYS Administration Glucagon 1 mg 08/12/24 19:23 Glucagon For Inj 1 Mg Vial IM PRN PRN Hypoglycemia Protocol Glucose 15 gm 08/12/24 19:23 Glucose Oral Gel 15 Gm Of Glucse In 37.5 Gm Tube PO PRN PRN Hypoglycemia Protocol Hydralazine HCl 25 mg 08/13/24 06:00 08/14/24 06:15 Hydralazine Hcl 25 Mg Tablet PO 25 mg Q8HR DORYS Administration Hydrocortisone 1 applic 08/12/24 23:55 Hydrocortisone 2.5% Cream 30 Gm Tube RECTAL DAILY PRN hemorrhoids Hydroxyzine HCl 25 mg 08/13/24 09:00 Hydroxyzine Hcl 25 Mg Tablet PO DAILY DORYS Levofloxacin/Dextrose 750 mg in 150 mls @ 100 mls/hr 08/13/24 15:00 08/13/24 15:19 Levaquin 750 Mg/D5w 150 Ml IVPB 100 mls/hr Q24H DORYS Administration Metronidazole 500 mg in 100 mls @ 100 mls/hr 08/12/24 22:00 08/14/24 06:15 Flagyl 500 Mg/Iso Soln 100 Ml IVPB 100 mls/hr Q8HR DORYS Administration Lactated Ringer's 1,000 mls @ 125 mls/hr 08/12/24 18:10 08/14/24 06:14 Lr - Lactated Ringers Iv IV CONT 125 mls/hr .Q8H DORYS Administration Dextrose 1,000 mls @ 100 mls/hr 08/12/24 19:23 Dextrose 5% 1,000 Ml IVPB PRN PRN Hypoglycemia Protocol Insulin Aspart 4 - 8 units 08/13/24 08:00 08/13/24 17:31 Insulin Aspart (*Bkc) 100 Units/Ml SUB-Q Not Given TIDWM DORYS Protocol Isosorbide Mononitrate 15 mg 08/13/24 09:00 08/13/24 08:55 Isosorbide Mononitrate 15 Mg Tab.Er.24h PO 15 mg DAILY DORYS Administration Lamotrigine 75 mg 08/13/24 09:00 08/13/24 20:52 Lamotrigine 25 Mg Tablet PO 75 mg Q12HR DORYS Administration Losartan Potassium 100 mg 08/13/24 09:00 08/13/24 09:05 Losartan Potassium 100 Mg Tablet PO 100 mg DAILY DORYS Administration Metoprolol Succinate 50 mg 08/13/24 09:00 08/13/24 09:04 Metoprolol Succinate Ext Rel 50 Mg Tabcr PO 50 mg DAILY DORYS Administration Multivitamins/Minerals 2 tablet 08/13/24 09:00 08/13/24 09:05 Opti-Gen Tab PO 2 tablet DAILY DORYS Administration Nicotine 1 patch 08/13/24 09:00 08/13/24 09:09 Nicotine (*Pbkc) 21 Mg Patch TRANSDERM Not Given DAILY [facility] Ondansetron HCl 4 mg 08/12/24 22:41 Ondansetron Inj 4 Mg/2 Ml Vial IV PUSH Q6H PRN Nausea And Vomiting Pantoprazole Sodium 40 mg 08/13/24 09:00 08/13/24 09:03 Pantoprazole 40 Mg Tablet PO 40 mg DAILY DORYS Administration Primidone 50 mg 08/13/24 09:00 08/13/24 09:05 Primidone 50 Mg Tablet PO 50 mg DAILY DORYS Administration Thiamine HCl 100 mg 08/13/24 09:00 08/13/24 09:05 Thiamine Hcl 100 Mg Tablet PO 100 mg DAILY DORYS Administration Radiology Results: ITS Impressions Head CT 08/12/24 13:14 IMPRESSION: No acute intracranial findings. Chest X-Ray 08/12/24 13:26 IMPRESSION: No acute cardiopulmonary pathology. Chest/Abdomen/Pelvis CT 08/12/24 14:03 IMPRESSION: 1. Stool distends the rectum. Elbow X-Ray 08/12/24 17:11 IMPRESSION: No acute osseous abnormality of the right elbow. Shoulder X-Ray 08/12/24 17:12 IMPRESSION: Lucency in the area of the greater tuberosity of the humerus is most likely degenerative. Fracture is less likely. CT is better for evaluation. Severe osteoarthritic changes of the glenohumeral joint. Wrist X-Ray 08/12/24 17:12 IMPRESSION: 1. 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 No acute osseous abnormality. Labs Labs: Laboratory Results - last 24 hr 08/13/24 08/13/24 08/13/24 05:32 08:26 11:53 WBC RBC Hgb Hct MCV MCH MCHC RDW Plt Count MPV Immature Gran % (Auto) Neut % (Auto) Lymph % (Auto) [place] % (Auto) Eos % (Auto) Baso % (Auto) Lymph # (Auto) [place] # (Auto) Eos # (Auto) Baso # (Auto) Abs Immat Gran (auto) Absolute Neuts (auto) Absolute Nucleated RBC Nucleated RBC % Sodium Potassium Chloride Carbon Dioxide Anion Gap BUN Creatinine Estim Creat Clear Calc Estimated GFR Glucose POC Capillary Glucose 135 H 133 H Calcium Total Bilirubin AST ALT Alkaline Phosphatase Total Protein Albumin Procalcitonin 0.1 08/13/24 08/13/24 08/14/24 17:08 20:17 05:44 WBC 4.7 RBC 3.06 L Hgb 8.1 L Hct 25.8 L MCV 84.3 MCH 26.5 MCHC 31.4 L RDW 15.4 H Plt Count 275 MPV 9.5 Immature Gran % (Auto) 0.6 H Neut % (Auto) 66.5 Lymph % (Auto) 20.0 [place] % (Auto) 10.2 H Eos % (Auto) 2.5 Baso % (Auto) 0.2 Lymph # (Auto) 0.94 [place] # (Auto) 0.5 Eos # (Auto) 0.1 Baso # (Auto) 0.0 Abs Immat Gran (auto) 0.03 Absolute Neuts (auto) 3.1 Absolute Nucleated RBC 0.000 Nucleated RBC % 0.0 Sodium 137 Potassium 3.1 L Chloride 102 Carbon Dioxide 28 Anion Gap 7 BUN 6 L Creatinine 0.50 L Estim Creat Clear Calc 72 Estimated GFR > 60 Glucose 135 H POC Capillary Glucose 122 H 122 H Calcium 8.5 Total Bilirubin 0.4 AST 20 ALT 10 Alkaline Phosphatase 97 Total Protein 6.0 L Albumin 3.0 L Procalcitonin Quality VTE Prophylaxis VTE prophylaxis: pharmacologic ordered
[2024-08-14 08:11] VITALS: PULSE 72
[2024-08-14] MEDS: ASPIRIN 81 MG ENTERIC TABLET PO (08:11)
[2024-08-14] MEDS: GABAPENTIN 300 MG CAPSULE 600 MG PO ×2 (08:11→16:29)
[2024-08-14] MEDS: DULoxetine HCL 60 MG CAPSULE.DR 120 MG PO (08:11)
[2024-08-14] MEDS: METOPROLOL SUCCINATE EXT REL 50 MG TABCR PO (08:11)
[2024-08-14] MEDS: ATORVASTATIN 40 MG TABLET PO (08:11)
[2024-08-14] MEDS: ISOSORBIDE MONONITRATE 15 MG TAB.ER.24H PO (08:11)
[2024-08-14] MEDS: lamoTRIgine 25 MG TABLET 75 MG PO ×2 (08:11→20:42)
[2024-08-14] MEDS: PRIMIDONE 50 MG TABLET PO (08:11)
[2024-08-14] MEDS: DOCUSATE SODIUM 100 MG CAPSULE PO ×2 (08:12→20:42)
[2024-08-14] MEDS: OPTI-GEN TAB 2 TABLET PO (08:12)
[2024-08-14] MEDS: LOSARTAN POTASSIUM 100 MG TABLET PO (08:12)
[2024-08-14] MEDS: PANTOPRAZOLE 40 MG TABLET PO (08:12)
[2024-08-14] MEDS: CLOPIDOGREL BISULFATE 75 MG TABLET PO (08:12)
[2024-08-14] MEDS: FOLIC ACID 1 MG TABLET PO (08:12)
[2024-08-14] MEDS: THIAMINE HCL 100 MG TABLET PO (08:12)
[2024-08-14] MEDS: POTASSIUM CHLORIDE 20 MEQ ER TABLET 40 MEQ PO (08:19)
[2024-08-14 08:55] LABS: Glucose Point of Care 138 mg/dl (65-105)
[2024-08-14 10:39] VITALS: BMI 31.2
--- NOTE | 2024-08-14 10:40 | PC.NURSE ---
Patient returned from MRI and CT per stretcher.
[2024-08-14 12:30] LABS: Glucose Point of Care 122 mg/dl (65-105)
[2024-08-14 14:00] VITALS: BP 129/65; PULSE 68; RESP 18; TEMP 36.5; O2SAT 98
[2024-08-14] MEDS: levoFLOXacin 750 MG/D5W 150 ML 750 MG/150 ML BAG 100 MG IVPB (14:53)
[2024-08-14] MEDS: ACETAMINOPHEN 500 MG TABLET PO (16:29)
[2024-08-14 17:44] LABS: Glucose Point of Care 112 mg/dl (65-105)
[2024-08-14] MEDS: amLODIPine BESYLATE 10 MG TABLET PO (20:42)
[2024-08-14 21:28] LABS: Glucose Point of Care 90 mg/dl (65-105)
[2024-08-14 22:00] VITALS: BP 154/56; PULSE 72; RESP 18; TEMP 36.2; O2SAT 96
[2024-08-15 06:00] VITALS: BP 174/68; PULSE 73; RESP 20; TEMP 36.2; O2SAT 98
[2024-08-15 06:01] LABS: Basophils Percent Auto 0.2 % (0.2-1.2); Eosinophils Absolute Auto 0.2 K/mm3 (0-0.3); Eosinophils Percent Auto 4.1 % (0-4.4); Hemoglobin 8.5 g/dL (12.0-15.0); Immature Granulocyte Absolute 0.01 K/mm3 (0.00-0.031); Immature Granulocyte Percent A 0.2 % (0-0.5); Lymphocytes Absolute Auto 0.94 K/mm3 (0.9-3.2); Lymphocytes Percent Auto 22.9 % (18.3-44.2); Mean Corpuscular HGB Conc 31.5 g/dl (32-36); Mean Corpuscular Hemoglobin 26.3 pg (26-34); Mean Corpuscular Volume 83.6 fl (80-100); Mean Platelet Volume 9.5 fl (7.4-10.4); Monocytes Absolute Auto 0.4 K/mm3 (0.1-0.6); Monocytes Percent Auto 10.7 % (2.6-8.5); Neutrophils Absolute Auto 2.5 K/mm3 (1.3-6.7); Neutrophils Percent Auto 61.9 % (45.5-73.1); Platelet Count Result 303 k/mm3 (150-375); Red Blood Count 3.23 M/mm3 (4.2-5.4); Red Cell Distribution Width 15.1 % (11.5-14.5); White Blood Count 4.1 K/mm3 (4.5-10.0)
[2024-08-15 06:18] LABS: Alanine Aminotransferase 10 U/L (6-35); Albumin Level 3.2 g/dL (3.5-5.1); Alkaline Phosphatase 98 U/L (38-126); Anion Gap 4 mmol/L (4-12); Aspartate Amino Transferase 22 U/L (14-36); Bilirubin,Total 0.4 mg/dL (0.2-1.3); Blood Urea Nitrogen 4 mg/dL (7-17); Calcium 8.8 mg/dL (8.4-10.2); Carbon Dioxide 31 mmol/L (22-30); Chloride 101 mmol/L (98-107); Estimated CRCL calculation 61 ml/min; Estimated Glomerular Filt Rate > 60; Glucose 128 mg/dL (65-110); Potassium 3.4 mmol/L (3.4-5.0); Sodium 136 mmol/L (137-145)
[2024-08-15] MEDS: LACTATED RINGERS 1,000 ML 125 ML IV CONT ×3 (06:19→21:22)
[2024-08-15] MEDS: metroNIDAZOLE 500 MG/ISO 100ML 500 MG/100 ML BAG 100 MG IVPB (06:20)
[2024-08-15] MEDS: hydrALAZINE HCL 25 MG TABLET PO ×3 (06:21→21:22)
--- NOTE | 2024-08-15 08:06 | PCPTNOTE ---
Patient refused therapy at this time stating she is hurting 6 and freezing. Patient was given an additional blanket and pain rating was relayed to nursing staff.
[2024-08-15 08:36] LABS: Glucose Point of Care 123 mg/dl (65-105)
--- NOTE | 2024-08-15 09:21 | P.PNIM_ITS ---
Progress Note: A&P Assessment and Plan (1) Altered mental status: Qualifiers: Altered mental status type: disorientation Qualified Code(s): R41.0 - Disorientation, unspecified Code(s): R41.82 - Altered mental status, unspecified Status: Acute Assessment and Plan: Spoke with patients RN at [facility] who states that patient did not have any seizure like activity, rather she was lethargic and not wanting to get up which prompted them to send her to the ED. She states that the patients Lamictal dose was incorrect at initial admission to the facility. She was only receiving 25 mg BID at first, however the mistake was corrected on 08/10 and her dose was increased to 75 mg BID which is her home dose. Possible seizure due to dose being decreased for a few days vs acute metabolic encephalopathy given fever, however no clear infectious source. - viral PCR and MRSA PCR negative - troponin <0.012 x2 - UA appears contaminated, UC negative - Blood culture NGTD - Hgb stable - CT chest/abd/pelvis: Stool distends the rectum. - Head CT: No acute intracranial findings - MRI 1. No acute intracranial process. 2. 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 3. Age-related changes including mild diffuse volume loss and cerebral and moderate scattered cerebral and pontine white matter T2 hyperintensity likely related to chronic small vessel ischemic disease. - Possible postictal state given that patient had been on an incorrect dose of her lamictal - Apnea link ordered to rule out KIANNA AOx4 during assessment. (2) Fever of unknown origin: Code(s): R50.9 - Fever, unspecified Status: Acute Assessment and Plan: Lactic 0.8, CRP 8.7, WBC 7.1. on admission. Fevers as high as 100.7 on 08/12. Patient has been afebrile since 08/13. 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 No acute osseous abnormality. * reporting significant right wrist pain. Possibility of septic joint. ED provider ultrasounded wrist, no fluid collection significant enough for tap. - Elbow XR: No acute osseous abnormality of the right elbow. - Shoulder XR: Lucency in the area of the greater tuberosity of the humerus is most likely degenerative. Fracture is less likely. CT is better for evaluation. Severe osteoarthritic changes of the glenohumeral joint. - Right UE CT 1. Moderate right acromioclavicular and glenohumeral osteoarthritis. No acute osseous abnormality. 2. Erosive and hypertrophic change along the middle and superior facets of the right greater tuberosity consistent with rotator cuff disease with minimal calcific density in the distal infraspinatus tendon consistent with calcific tendinitis. - CT abd/pelvis unrevealing - CTA chest ordered as PE can occasionally cause fever No pulmonary embolism or other acute cardiopulmonary disease. - MRI 1. No acute intracranial process. 2. 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 3. Age-related changes including mild diffuse volume loss and cerebral and moderate scattered cerebral and pontine white matter T2 hyperintensity likely related to chronic small vessel ischemic disease. - IV fluids at 125 mL/hour - antipyretics prn - started on broad spectrum abx (allergy to Keflex): Started on Vancomycin, Flagyl, Levaquin given concern for bacteremia given no other clear source. Vancomycin discontinued on 08/13 as MRSA negative. All antibiotics discontinued as there is no leukocytosis, she is afebrile, and no clear infectious source. 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 use Qualified Code(s): E11.9 - Type 2 diabetes mellitus without complications Code(s): E11.9 - Type 2 diabetes mellitus without complications Status: Chronic Assessment and Plan: - hypoglycemia protocol - POC blood glucose ACHS - not currently on home medications - correct regimen ordered - high dose TIDWM, based off BMI - A1C 9.3% on 06/30/2024 (5) Hypertension: Qualifiers: Hypertension type: essential hypertension Qualified Code(s): I10 - Essential (primary) hypertension Code(s): I10 - Essential (primary) hypertension Status: Chronic Assessment and Plan: Chronic, continue home medications - Metoprolol ER 50 mg daily - Losartan 100 mg daily - Imdur 15 mg daily - Hydralazine 25 mg t.i.d. - Amlodipine 10 mg HS - Renal US in the past was unremarkable - Apnea link ordered to rule out KIANNA as possible cause - monitor (6) Frequent falls: Code(s): R29.6 - Repeated falls Status: Acute Assessment and Plan: - fall precautions - PT/OT Time Spent With Patient Time with patient: 25 - 35 minutes Subjective Date/time seen: 08/15/24 09:21 Interval history: 78 y/o F presents to the hospital from [facility] with altered mental status with PMH of anemia, chronic pain, depression/anxiety, emphysema, GERD, fatty liver, basal cell carcinoma, HTN, HLD, KIANNA (not on CPAP), psoriasis, seizures, and diabetes. Patient is pleasant sitting up in bed with at bedside. Patient remains afebrile and again there has been no infectious source found for the prior fever. Antibiotics have been discontinued. Possible that this was a postictal fever as patient was not on the correct dose of Lamictal prior to the symptom development and had associated altered mental status that later resolved. Also possible that patient has untreated sleep apnea. Per patient was on BiPAP in the past however she has not used this for many years. ApneaLink ordered for tonight. Sleep apnea could be another reason for patient's poorly- controlled hypertension. Patient endorsing leg pain. She has no other complaints denying chest pain, shortness of breath, palpitations, nausea/vomiting and abdominal pain. Review of Systems Review of Systems: All systems reviewed & are unremarkable except as noted in HPI and below Exam Narrative: AF HR 73 RR 20 SpO2 98 BP 174/68 General: female in no acute respiratory distress who is nontoxic appearing, sitting up in bed. HEENT: Normocephalic. Atraumatic. Extraocular movement intact. Sclera clear and anicteric. No facial asymmetry. Chest: Lungs are clear to auscultation bilaterally. No wheezes or crackles. CV: Heart was regular rate and rhythm. S1-S2. No murmurs, gallops, or rubs. Abd: Abdomen was soft. Nontender. Nondistended. Positive bowel sounds. No organomegaly or masses. Ext: No clubbing, cyanosis, or edema. 2+ DP pulses bilaterally. Neuro: Patient is alert and oriented x4. Strength is symmetrical. Swelling to the right wrist has improved continues to have pain to palpation along the radial side and into the dorsum of the hand. ROM intact. Speech is clear. Objective Data Vital Signs Vital Signs: Vital Signs - 24 hr 08/14/24 13:53 08/14/24 14:00 08/14/24 20:00 Temperature 97.7 F Pulse Rate 68 Respiratory Rate 18 Blood Pressure 129/65 Pulse Oximetry 98 Oxygen Delivery Room Air Room Air 08/14/24 22:00 08/15/24 06:00 Temperature 97.1 F L 97.1 F L Pulse Rate 72 73 Respiratory Rate 18 20 Blood Pressure 154/56 H 174/68 H Pulse Oximetry 96 98 Oxygen Delivery Intake/Output Intake/Output: Intake & Output 08/12/24 08/13/24 08/14/24 08/15/24 23:59 23:59 23:59 23:59 Intake Total 1850 3170 5280 1700 Output Total 50 2009 1915 2100 Balance 1800 1160 3365 -400 Meds/Results Medications: Active Medications Generic Name Dose Route Start Last Admin Trade Name Nikhilq PRN Reason Stop Dose Admin Acetaminophen 650 mg 08/12/24 16:33 08/12/24 16:40 Acetaminophen 650 Mg Suppository RECTAL 650 mg Q6H PRN Administration Mild Pain (1-3) or Fever Acetaminophen 500 mg 08/12/24 23:24 08/14/24 16:29 Acetaminophen 500 Mg Tablet PO 500 mg BID PRN Administration pain Amlodipine Besylate 10 mg 08/12/24 21:00 08/14/24 20:42 Amlodipine Besylate 10 Mg Tablet PO 10 mg HS DORYS Administration Aspirin 81 mg 08/13/24 09:00 08/14/24 08:11 Aspirin 81 Mg Enteric Tablet PO 81 mg DAILY DORYS Administration Atorvastatin Calcium 40 mg 08/13/24 09:00 08/14/24 08:11 Atorvastatin 40 Mg Tablet PO 40 mg DAILY DORYS Administration Clopidogrel Bisulfate 75 mg 08/13/24 09:00 08/14/24 08:12 Clopidogrel Bisulfate 75 Mg Tablet PO 75 mg DAILY DORYS Administration Dextrose 12.5 gm 08/12/24 19:23 Dextrose 50% 25 Gm/50 Ml Syringe IV PUSH PRN PRN Hypoglycemia Protocol Docusate Sodium 100 mg 08/13/24 09:00 08/14/24 20:42 Docusate Sodium 100 Mg Capsule PO 100 mg Q12HR DORYS Administration Duloxetine HCl 120 mg 08/13/24 09:00 08/14/24 08:11 Duloxetine Hcl 60 Mg Capsule.Dr PO 120 mg DAILY DORYS Administration Folic Acid 1 mg 08/13/24 09:00 08/14/24 08:12 Folic Acid 1 Mg Tablet PO 1 mg DAILY DORYS Administration Gabapentin 600 mg 08/13/24 09:00 08/14/24 16:29 Gabapentin 300 Mg Capsule PO 600 mg BID DORYS Administration Glucagon 1 mg 08/12/24 19:23 Glucagon For Inj 1 Mg Vial IM PRN PRN Hypoglycemia Protocol Glucose 15 gm 08/12/24 19:23 Glucose Oral Gel 15 Gm Of Glucse In 37.5 Gm Tube PO PRN PRN Hypoglycemia Protocol Hydralazine HCl 25 mg 08/13/24 06:00 08/15/24 06:21 Hydralazine Hcl 25 Mg Tablet PO 25 mg Q8HR DORYS Administration Hydrocortisone 1 applic 08/12/24 23:55 Hydrocortisone 2.5% Cream 30 Gm Tube RECTAL DAILY PRN hemorrhoids Hydroxyzine HCl 25 mg 08/13/24 09:00 Hydroxyzine Hcl 25 Mg Tablet PO DAILY DORYS Lactated Ringer's 1,000 mls @ 125 mls/hr 08/12/24 18:10 08/15/24 06:19 Lr - Lactated Ringers Iv IV CONT 125 mls/hr .Q8H DORYS Administration Dextrose 1,000 mls @ 100 mls/hr 08/12/24 19:23 Dextrose 5% 1,000 Ml IVPB PRN PRN Hypoglycemia Protocol Insulin Aspart 4 - 8 units 08/13/24 08:00 08/15/24 08:38 Insulin Aspart (*Bkc) 100 Units/Ml SUB-Q Not Given TIDWM DORYS Protocol Isosorbide Mononitrate 15 mg 08/13/24 09:00 08/14/24 08:11 Isosorbide Mononitrate 15 Mg Tab.Er.24h PO 15 mg DAILY DORYS Administration Lamotrigine 75 mg 08/13/24 09:00 08/14/24 20:42 Lamotrigine 25 Mg Tablet PO 75 mg Q12HR DORYS Administration Losartan Potassium 100 mg 08/13/24 09:00 08/14/24 08:12 Losartan Potassium 100 Mg Tablet PO 100 mg DAILY DORYS Administration Metoprolol Succinate 50 mg 08/13/24 09:00 08/14/24 08:11 Metoprolol Succinate Ext Rel 50 Mg Tabcr PO 50 mg DAILY DORYS Administration Multivitamins/Minerals 2 tablet 08/13/24 09:00 08/14/24 08:12 Opti-Gen Tab PO 2 tablet DAILY DORYS Administration Nicotine 1 patch 08/13/24 09:00 08/14/24 08:13 Nicotine (*Pbkc) 21 Mg Patch TRANSDERM Not Given DAILY DORYS Ondansetron HCl 4 mg 08/12/24 22:41 Ondansetron Inj 4 Mg/2 Ml Vial IV PUSH Q6H PRN Nausea And Vomiting Pantoprazole Sodium 40 mg 08/13/24 09:00 08/14/24 08:12 Pantoprazole 40 Mg Tablet PO 40 mg DAILY DORYS Administration Primidone 50 mg 08/13/24 09:00 08/14/24 08:11 Primidone 50 Mg Tablet PO 50 mg DAILY DORYS Administration Thiamine HCl 100 mg 08/13/24 09:00 08/14/24 08:12 Thiamine Hcl 100 Mg Tablet PO 100 mg DAILY DORYS Administration Radiology Results: ITS Impressions Head CT 08/12/24 13:14 IMPRESSION: No acute intracranial findings. Chest X-Ray 08/12/24 13:26 IMPRESSION: No acute cardiopulmonary pathology. Chest/Abdomen/Pelvis CT 08/12/24 14:03 IMPRESSION: 1. Stool distends the rectum. Elbow X-Ray 08/12/24 17:11 IMPRESSION: No acute osseous abnormality of the right elbow. Shoulder X-Ray 08/12/24 17:12 IMPRESSION: Lucency in the area of the greater tuberosity of the humerus is most likely degenerative. Fracture is less likely. CT is better for evaluation. Severe osteoarthritic changes of the glenohumeral joint. Wrist X-Ray 08/12/24 17:12 IMPRESSION: 1. 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 No acute osseous abnormality. Brain MRI 08/14/24 10:24 IMPRESSION: 1. No acute intracranial process. 2. 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 3. Age-related changes including mild diffuse volume loss and cerebral and moderate scattered cerebral and pontine white matter T2 hyperintensity likely related to chronic small vessel ischemic disease. Chest CTA 08/14/24 11:11 IMPRESSION: 1. No pulmonary embolism or other acute cardiopulmonary disease. Shoulder CT 08/14/24 11:16 IMPRESSION: 1. Moderate right acromioclavicular and glenohumeral osteoarthritis. No acute osseous abnormality. 2. Erosive and hypertrophic change along the middle and superior facets of the right greater tuberosity consistent with rotator cuff disease with minimal calcific density in the distal infraspinatus tendon consistent with calcific tendinitis. Labs Labs: Laboratory Results - last 24 hr 08/14/24 08/14/24 08/14/24 12:22 17:40 21:15 WBC RBC Hgb Hct MCV MCH MCHC RDW Plt Count MPV Immature Gran % (Auto) Neut % (Auto) Lymph % (Auto) [place] % (Auto) Eos % (Auto) Baso % (Auto) Lymph # (Auto) [place] # (Auto) Eos # (Auto) Baso # (Auto) Abs Immat Gran (auto) Absolute Neuts (auto) Absolute Nucleated RBC Nucleated RBC % Sodium Potassium Chloride Carbon Dioxide Anion Gap BUN Creatinine Estim Creat Clear Calc Estimated GFR Glucose POC Capillary Glucose 122 H 112 H 90 Calcium Total Bilirubin AST ALT Alkaline Phosphatase Total Protein Albumin 08/15/24 08/15/24 05:34 08:33 WBC 4.1 L RBC 3.23 L Hgb 8.5 L Hct 27.0 L MCV 83.6 MCH 26.3 MCHC 31.5 L RDW 15.1 H Plt Count 303 MPV 9.5 Immature Gran % (Auto) 0.2 Neut % (Auto) 61.9 Lymph % (Auto) 22.9 Glasscock % (Auto) 10.7 H Eos % (Auto) 4.1 Baso % (Auto) 0.2 Lymph # (Auto) 0.94 Glasscock # (Auto) 0.4 Eos # (Auto) 0.2 Baso # (Auto) 0.0 Abs Immat Gran (auto) 0.01 Absolute Neuts (auto) 2.5 Absolute Nucleated RBC 0.000 Nucleated RBC % 0.0 Sodium 136 L Potassium 3.4 Chloride 101 Carbon Dioxide 31 H Anion Gap 4 BUN 4 L Creatinine 0.60 L Estim Creat Clear Calc 61 Estimated GFR > 60 Glucose 128 H POC Capillary Glucose 123 H Calcium 8.8 Total Bilirubin 0.4 AST 22 ALT 10 Alkaline Phosphatase 98 Total Protein 7.0 Albumin 3.2 L Quality VTE Prophylaxis VTE prophylaxis: pharmacologic ordered
[2024-08-15] MEDS: LOSARTAN POTASSIUM 100 MG TABLET PO (11:28)
[2024-08-15 11:29] VITALS: PULSE 76
[2024-08-15] MEDS: METOPROLOL SUCCINATE EXT REL 50 MG TABCR PO (11:29)
[2024-08-15] MEDS: traMADol HCL (*CRX) 50 MG TABLET PO ×2 (11:30→21:23)
[2024-08-15 12:08] LABS: Glucose Point of Care 105 mg/dl (65-105)
--- NOTE | 2024-08-15 12:25 | PCPTNOTE ---
Patient refused therapy services for a second time this date.
[2024-08-15 14:00] VITALS: BP 159/59; PULSE 73; RESP 16; TEMP 36.4; O2SAT 73
--- NOTE | 2024-08-15 17:16 | PC.NURSE ---
I have reviewed Maria Isabel BENITEZ's charting and agree with all assessments and charting
[2024-08-15] MEDS: GABAPENTIN 300 MG CAPSULE 600 MG PO (17:27)
[2024-08-15 18:30] LABS: Glucose Point of Care 112 mg/dl (65-105)
[2024-08-15 20:30] VITALS: O2SAT 94
[2024-08-15 20:56] VITALS: BP 159/56; PULSE 75; RESP 16; TEMP 37.2; O2SAT 98
[2024-08-15 21:08] LABS: Glucose Point of Care 98 mg/dl (65-105)
[2024-08-15] MEDS: lamoTRIgine 25 MG TABLET 75 MG PO (21:22)
[2024-08-15] MEDS: DOCUSATE SODIUM 100 MG CAPSULE PO (21:22)
[2024-08-15] MEDS: amLODIPine BESYLATE 10 MG TABLET PO (21:22)
[2024-08-16 05:20] VITALS: BP 152/55; PULSE 69; RESP 18; TEMP 36.7; O2SAT 95
[2024-08-16] MEDS: LACTATED RINGERS 1,000 ML 125 ML IV CONT (05:20)
[2024-08-16] MEDS: hydrALAZINE HCL 25 MG TABLET PO (05:21)
[2024-08-16 05:44] LABS: Basophils Percent Auto 0.2 % (0.2-1.2); Eosinophils Absolute Auto 0.2 K/mm3 (0-0.3); Eosinophils Percent Auto 4.5 % (0-4.4); Hematocrit 26.6 % (37.0-47.0); Hemoglobin 8.4 g/dL (12.0-15.0); Immature Granulocyte Absolute 0.02 K/mm3 (0.00-0.031); Immature Granulocyte Percent A 0.4 % (0-0.5); Lymphocytes Absolute Auto 1.47 K/mm3 (0.9-3.2); Lymphocytes Percent Auto 30.4 % (18.3-44.2); Mean Corpuscular HGB Conc 31.6 g/dl (32-36); Mean Corpuscular Hemoglobin 26.6 pg (26-34); Mean Corpuscular Volume 84.2 fl (80-100); Mean Platelet Volume 9.4 fl (7.4-10.4); Monocytes Absolute Auto 0.5 K/mm3 (0.1-0.6); Monocytes Percent Auto 9.9 % (2.6-8.5); Neutrophils Absolute Auto 2.6 K/mm3 (1.3-6.7); Neutrophils Percent Auto 54.6 % (45.5-73.1); Platelet Count Result 310 k/mm3 (150-375); Red Blood Count 3.16 M/mm3 (4.2-5.4); Red Cell Distribution Width 15.3 % (11.5-14.5); White Blood Count 4.8 K/mm3 (4.5-10.0)
[2024-08-16 05:56] LABS: Alanine Aminotransferase 11 U/L (6-35); Albumin Level 3.2 g/dL (3.5-5.1); Alkaline Phosphatase 87 U/L (38-126); Anion Gap 3 mmol/L (4-12); Aspartate Amino Transferase 27 U/L (14-36); Bilirubin,Total 0.4 mg/dL (0.2-1.3); Blood Urea Nitrogen 3 mg/dL (7-17); Calcium 8.6 mg/dL (8.4-10.2); Carbon Dioxide 33 mmol/L (22-30); Chloride 103 mmol/L (98-107); Estimated CRCL calculation 61 ml/min; Estimated Glomerular Filt Rate > 60; Glucose 115 mg/dL (65-110); Sodium 139 mmol/L (137-145)
[2024-08-16] MEDS: LOSARTAN POTASSIUM 100 MG TABLET PO (08:33)
[2024-08-16] MEDS: PANTOPRAZOLE 40 MG TABLET PO (08:33)
[2024-08-16] MEDS: CLOPIDOGREL BISULFATE 75 MG TABLET PO (08:33)
[2024-08-16] MEDS: ISOSORBIDE MONONITRATE 15 MG TAB.ER.24H PO (08:33)
[2024-08-16] MEDS: lamoTRIgine 25 MG TABLET 75 MG PO (08:33)
[2024-08-16] MEDS: OPTI-GEN TAB 2 TABLET PO (08:33)
[2024-08-16] MEDS: THIAMINE HCL 100 MG TABLET PO (08:33)
[2024-08-16] MEDS: GABAPENTIN 300 MG CAPSULE 600 MG PO (08:33)
[2024-08-16] MEDS: PRIMIDONE 50 MG TABLET PO (08:33)
[2024-08-16] MEDS: ATORVASTATIN 40 MG TABLET PO (08:33)
[2024-08-16 08:34] VITALS: PULSE 72
[2024-08-16] MEDS: FOLIC ACID 1 MG TABLET PO (08:34)
[2024-08-16] MEDS: ASPIRIN 81 MG ENTERIC TABLET PO (08:34)
[2024-08-16] MEDS: METOPROLOL SUCCINATE EXT REL 50 MG TABCR PO (08:34)
[2024-08-16] MEDS: DOCUSATE SODIUM 100 MG CAPSULE PO (08:34)
[2024-08-16] MEDS: DULoxetine HCL 60 MG CAPSULE.DR 120 MG PO (08:34)
[2024-08-16 08:52] LABS: Glucose Point of Care 115 mg/dl (65-105)
--- NOTE | 2024-08-16 09:47 | P.PNIM_ITS ---
Progress Note: A&P Assessment and Plan (1) Altered mental status: Qualifiers: Altered mental status type: disorientation Qualified Code(s): R41.0 - Disorientation, unspecified Code(s): R41.82 - Altered mental status, unspecified Status: Acute Assessment and Plan: Spoke with patients RN at [facility] who states that patient did not have any seizure like activity, rather she was lethargic and not wanting to get up which prompted them to send her to the ED. She states that the patients Lamictal dose was incorrect at initial admission to the facility. She was only receiving 25 mg BID at first, however the mistake was corrected on 08/10 and her dose was increased to 75 mg BID which is her home dose. Possible seizure due to dose being decreased for a few days vs acute metabolic encephalopathy given fever, however no clear infectious source. - viral PCR and MRSA PCR negative - troponin <0.012 x2 - UA appears contaminated, UC negative - Blood culture NGTD - Hgb stable - CT chest/abd/pelvis: Stool distends the rectum. - Head CT: No acute intracranial findings - MRI 1. No acute intracranial process. 2. 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 3. Age-related changes including mild diffuse volume loss and cerebral and moderate scattered cerebral and pontine white matter T2 hyperintensity likely related to chronic small vessel ischemic disease. - Possible postictal state given that patient had been on an incorrect dose of her lamictal - Apnea link ordered to rule out KIANNA AOx4 during assessment. (2) Fever of unknown origin: Code(s): R50.9 - Fever, unspecified Status: Acute Assessment and Plan: Lactic 0.8, CRP 8.7, WBC 7.1. on admission. Fevers as high as 100.7 on 08/12. Patient has been afebrile since 08/13. 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 No acute osseous abnormality. * reporting significant right wrist pain. Possibility of septic joint. ED provider ultrasounded wrist, no fluid collection significant enough for tap. - Elbow XR: No acute osseous abnormality of the right elbow. - Shoulder XR: Lucency in the area of the greater tuberosity of the humerus is most likely degenerative. Fracture is less likely. CT is better for evaluation. Severe osteoarthritic changes of the glenohumeral joint. - Right UE CT 1. Moderate right acromioclavicular and glenohumeral osteoarthritis. No acute osseous abnormality. 2. Erosive and hypertrophic change along the middle and superior facets of the right greater tuberosity consistent with rotator cuff disease with minimal calcific density in the distal infraspinatus tendon consistent with calcific tendinitis. - CT abd/pelvis unrevealing - CTA chest ordered as PE can occasionally cause fever No pulmonary embolism or other acute cardiopulmonary disease. - MRI 1. No acute intracranial process. 2. 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 3. Age-related changes including mild diffuse volume loss and cerebral and moderate scattered cerebral and pontine white matter T2 hyperintensity likely related to chronic small vessel ischemic disease. - IV fluids at 125 mL/hour - antipyretics prn - started on broad spectrum abx (allergy to Keflex): Started on Vancomycin, Flagyl, Levaquin given concern for bacteremia given no other clear source. Vancomycin discontinued on 08/13 as MRSA negative. All antibiotics discontinued as there is no leukocytosis, she is afebrile, and no clear infectious source. (3) Anemia: Qualifiers: Anemia type: unspecified type Qualified Code(s): D64.9 - Anemia, unspecified Code(s): D64.9 - Anemia, unspecified Status: Chronic Assessment and Plan: Hgb 9.4 on admission, previously 9.3 on 08/07/2024 - H/H 8.5/27.0 on am labs - No signs of obvious bleeding - monitor (4) Type 2 diabetes mellitus: Qualifiers: Diabetes mellitus complication status: without complication Diabetes mellitus moth exterminator insulin use: without custodial use Qualified Code(s): E11.9 - Type 2 diabetes mellitus without complications Code(s): E11.9 - Type 2 diabetes mellitus without complications Status: Chronic Assessment and Plan: - hypoglycemia protocol - POC blood glucose ACHS - not currently on home medications - correct regimen ordered - high dose TIDWM, based off BMI - A1C 9.3% on 06/30/2024 (5) Hypertension: Qualifiers: Hypertension type: essential hypertension Qualified Code(s): I10 - Essential (primary) hypertension Code(s): I10 - Essential (primary) hypertension Status: Chronic Assessment and Plan: Chronic, continue home medications - Metoprolol ER 50 mg daily - Losartan 100 mg daily - Imdur 15 mg daily - Hydralazine 25 mg t.i.d. - Amlodipine 10 mg HS - Renal US in the past was unremarkable - Apnea link ordered to rule out KIANNA as possible cause - monitor (6) Frequent falls: Code(s): R29.6 - Repeated falls Status: Acute Assessment and Plan: - fall precautions - PT/OT Plan pt will need an outpt follow up for sleep studies. Apnea link is abnormal: suspected pathol. breathing disorder . Subjective Date/time seen: 08/16/24 09:47 Interval history: 78 y/o F presents to the hospital from [facility] with altered mental status with PMH of anemia, chronic pain, depression/anxiety, emphysema, GERD, fatty liver, basal cell carcinoma, HTN, HLD, KIANNA (not on CPAP), psoriasis, seizures, and diabetes. Patient is pleasant sitting up in bed with at bedside. Patient remains afebrile and again there has been no infectious source found for the prior fever. Antibiotics have been discontinued. Possible that this was a postictal fever as patient was not on the correct dose of Lamictal prior to the symptom development and had associated altered mental status that later resolved. Also possible that patient has untreated sleep apnea. Per patient was on BiPAP in the past however she has not used this for many years. ApneaLink ordered for tonight. Sleep apnea could be another reason for patient's poorly- controlled hypertension. Patient endorsing leg pain. Denying chest pain, shortness of breath, palpitations, nausea/vomiting and abdominal pain. Review of Systems Review of Systems: All systems reviewed & are unremarkable except as noted in HPI and below ROS unobtainable: Yes unobtainable due to mental status (Limited, A&O 1) Exam Narrative: AF HR 73 RR 20 SpO2 98 BP 174/68 General: female in no acute respiratory distress who is nontoxic appearing, sitting up in bed. HEENT: Normocephalic. Atraumatic. Extraocular movement intact. Sclera clear and anicteric. No facial asymmetry. Chest: Lungs are clear to auscultation bilaterally. No wheezes or crackles. CV: Heart was regular rate and rhythm. S1-S2. No murmurs, gallops, or rubs. Abd: Abdomen was soft. Nontender. Nondistended. Positive bowel sounds. No organomegaly or masses. Ext: No clubbing, cyanosis, or edema. 2+ DP pulses bilaterally. Neuro: Patient is alert and oriented x4. Strength is symmetrical. Swelling to the right wrist has improved continues to have pain to palpation along the radial side and into the dorsum of the hand. ROM intact. Speech is clear. Const: General: comfortable and no acute distress Other: , female, elderly, mildly ill-appearing HENMT: Face/Nose/Sinus: Normal nares present Mouth: Yes dry mucous m embranes Eyes: General: appearance normal, both eyes and all related structures Sclera: sclerae normal Pupils: Equal, round and reactive pupils present EOM: EOMs intact bilaterally Resp: Effort & Inspection: normal respiratory effort Auscultation: clear to auscultation bilaterally Cardio: Rate: regular rate Rhythm: regular rhythm Other: S1-S2 present without murmur, rub, ectopy GI: Other: Abdomen soft, nondistended, nontender Skin: General skin exam: normal color and no rashes or lesions noted Wounds: no wounds Neuro: Cranial nerves: Yes Equal, round and reactive pupils present Other: Generalized weakness. A&O x1. Some intermittent word-finding difficulty, appears more so to be difficulty recalling situational facts versus specific words. Rivet Sticker and plantar flexion are 4+ and equal bilaterally. Patient too weak to observe drift. No facial droop. Extrem: General: normal exam except as noted Other: Mild erythema to right wrist. Very tender. Psych: Other: Poor insight and judgment at present, pleasant Objective Data Vital Signs Vital Signs: Vital Signs - 24 hr 08/15/24 11:29 08/15/24 14:00 08/15/24 20:56 Temperature 97.5 F L 98.9 F Pulse Rate 76 73 75 Respiratory Rate 16 16 Blood Pressure 159/59 H 159/56 H Pulse Oximetry 73 L 98 Oxygen Delivery 08/15/24 20:00 08/15/24 20:30 08/16/24 05:20 Temperature 98.0 F Pulse Rate 69 Respiratory Rate 18 Blood Pressure 152/55 H Pulse Oximetry 94 95 Oxygen Delivery Room Air Room Air 08/16/24 08:34 08/16/24 08:00 Temperature Pulse Rate 72 Respiratory Rate Blood Pressure Pulse Oximetry Oxygen Delivery Room Air Intake/Output Intake/Output: Intake & Output 08/13/24 08/14/24 08/15/24 08/16/24 23:59 23:59 23:59 23:59 Intake Total 3170 5280 4826.3 1785.8 Output Total 2009 1914 2800 1750 Balance 1160 3365 2026.3 35.8 Meds/Results Medications: Active Medications Generic Name Dose Route Start Last Admin Trade Name Freq PRN Reason Stop Dose Admin Acetaminophen 650 mg 08/12/24 16:33 08/12/24 16:40 Acetaminophen 650 Mg Suppository RECTAL 650 mg Q6H PRN Administration Mild Pain (1-3) or Fever Acetaminophen 500 mg 08/12/24 23:24 08/14/24 16:29 Acetaminophen 500 Mg Tablet PO 500 mg BID PRN Administration pain Amlodipine Besylate 10 mg 08/12/24 21:00 08/15/24 21:22 Amlodipine Besylate 10 Mg Tablet PO 10 mg HS DORYS Administration Aspirin 81 mg 08/13/24 09:00 08/16/24 08:34 Aspirin 81 Mg Enteric Tablet PO 81 mg DAILY DORYS Administration Atorvastatin Calcium 40 mg 08/13/24 09:00 08/16/24 08:33 Atorvastatin 40 Mg Tablet PO 40 mg DAILY DORYS Administration Clopidogrel Bisulfate 75 mg 08/13/24 09:00 08/16/24 08:33 Clopidogrel Bisulfate 75 Mg Tablet PO 75 mg DAILY DORYS Administration Dextrose 12.5 gm 08/12/24 19:23 Dextrose 50% 25 Gm/50 Ml Syringe IV PUSH PRN PRN Hypoglycemia Protocol Docusate Sodium 100 mg 08/13/24 09:00 08/16/24 08:34 Docusate Sodium 100 Mg Capsule PO 100 mg Q12HR DORYS Administration Duloxetine HCl 120 mg 08/13/24 09:00 08/16/24 08:34 Duloxetine Hcl 60 Mg Capsule.Dr PO 120 mg DAILY DORYS Administration Folic Acid 1 mg 08/13/24 09:00 08/16/24 08:34 Folic Acid 1 Mg Tablet PO 1 mg DAILY DORYS Administration Gabapentin 600 mg 08/13/24 09:00 08/16/24 08:33 Gabapentin 300 Mg Capsule PO 600 mg BID DORYS Administration Glucagon 1 mg 08/12/24 19:23 Glucagon For Inj 1 Mg Vial IM PRN PRN Hypoglycemia Protocol Glucose 15 gm 08/12/24 19:23 Glucose Oral Gel 15 Gm Of Glucse In 37.5 Gm Tube PO PRN PRN Hypoglycemia Protocol Hydralazine HCl 25 mg 08/13/24 06:00 08/16/24 05:21 Hydralazine Hcl 25 Mg Tablet PO 25 mg Q8HR DORYS Administration Hydrocortisone 1 applic 08/12/24 23:55 Hydrocortisone 2.5% Cream 30 Gm Tube RECTAL DAILY PRN hemorrhoids Hydroxyzine HCl 25 mg 08/13/24 09:00 Hydroxyzine Hcl 25 Mg Tablet PO DAILY DORYS Lactated Ringer's 1,000 mls @ 125 mls/hr 08/12/24 18:10 08/16/24 05:20 Lr - Lactated Ringers Iv IV CONT 125 mls/hr .Q8H DORYS Administration Dextrose 1,000 mls @ 100 mls/hr 08/12/24 19:23 Dextrose 5% 1,000 Ml IVPB PRN PRN Hypoglycemia Protocol Insulin Aspart 4 - 8 units 08/13/24 08:00 08/16/24 09:30 Insulin Aspart (*Bkc) 100 Units/Ml SUB-Q Not Given TIDWM DORYS Protocol Isosorbide Mononitrate 15 mg 08/13/24 09:00 08/16/24 08:33 Isosorbide Mononitrate 15 Mg Tab.Er.24h PO 15 mg DAILY DORYS Administration Lamotrigine 75 mg 08/13/24 09:00 08/16/24 08:33 Lamotrigine 25 Mg Tablet PO 75 mg Q12HR DORYS Administration Lorazepam 0.5 mg 08/15/24 10:07 Lorazepam (*Crx) 0.5 Mg Tablet PO Q8H PRN Anxiety Losartan Potassium 100 mg 08/13/24 09:00 08/16/24 08:33 Losartan Potassium 100 Mg Tablet PO 100 mg DAILY DORYS Administration Metoprolol Succinate 50 mg 08/13/24 09:00 08/16/24 08:34 Metoprolol Succinate Ext Rel 50 Mg Tabcr PO 50 mg DAILY DORYS Administration Multivitamins/Minerals 2 tablet 08/13/24 09:00 08/16/24 08:33 Opti-Gen Tab PO 2 tablet DAILY DORYS Administration Nicotine 1 patch 08/13/24 09:00 08/16/24 08:36 Nicotine (*Pbkc) 21 Mg Patch TRANSDERM Not Given DAILY [facility] Ondansetron HCl 4 mg 08/12/24 22:41 Ondansetron Inj 4 Mg/2 Ml Vial IV PUSH Q6H PRN Nausea And Vomiting Pantoprazole Sodium 40 mg 08/13/24 09:00 08/16/24 08:33 Pantoprazole 40 Mg Tablet PO 40 mg DAILY DORYS Administration Primidone 50 mg 08/13/24 09:00 08/16/24 08:33 Primidone 50 Mg Tablet PO 50 mg DAILY DORYS Administration Thiamine HCl 100 mg 08/13/24 09:00 08/16/24 08:33 Thiamine Hcl 100 Mg Tablet PO 100 mg DAILY DORYS Administration Tramadol HCl 50 mg 08/15/24 11:05 08/15/24 21:23 Tramadol Hcl (*Crx) 50 Mg Tablet PO 50 mg Q6H PRN Administration pain level greater than 6 Radiology Results: ITS Impressions Head CT 08/12/24 13:14 IMPRESSION: No acute intracranial findings. Chest X-Ray 08/12/24 13:26 IMPRESSION: No acute cardiopulmonary pathology. Chest/Abdomen/Pelvis CT 08/12/24 14:03 IMPRESSION: 1. Stool distends the rectum. Elbow X-Ray 08/12/24 17:11 IMPRESSION: No acute osseous abnormality of the right elbow. Shoulder X-Ray 08/12/24 17:12 IMPRESSION: Lucency in the area of the greater tuberosity of the humerus is most likely degenerative. Fracture is less likely. CT is better for evaluation. Severe osteoarthritic changes of the glenohumeral joint. Wrist X-Ray 08/12/24 17:12 IMPRESSION: 1. 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 No acute osseous abnormality. Brain MRI 08/14/24 10:24 IMPRESSION: 1. No acute intracranial process. 2. 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 3. Age-related changes including mild diffuse volume loss and cerebral and moderate scattered cerebral and pontine white matter T2 hyperintensity likely related to chronic small vessel ischemic disease. Chest CTA 08/14/24 11:11 IMPRESSION: 1. No pulmonary embolism or other acute cardiopulmonary disease. Shoulder CT 08/14/24 11:16 IMPRESSION: 1. Moderate right acromioclavicular and glenohumeral osteoarthritis. No acute osseous abnormality. 2. Erosive and hypertrophic change along the middle and superior facets of the right greater tuberosity consistent with rotator cuff disease with minimal calcific density in the distal infraspinatus tendon consistent with calcific tendinitis. Labs Labs: Laboratory Results - last 24 hr 08/15/24 08/15/24 08/15/24 12:03 17:19 20:59 WBC RBC Hgb Hct MCV MCH MCHC RDW Plt Count MPV Immature Gran % (Auto) Neut % (Auto) Lymph % (Auto) [place] % (Auto) Eos % (Auto) Baso % (Auto) Lymph # (Auto) [place] # (Auto) Eos # (Auto) Baso # (Auto) Abs Immat Gran (auto) Absolute Neuts (auto) Absolute Nucleated RBC Nucleated RBC % Sodium Potassium Chloride Carbon Dioxide Anion Gap BUN Creatinine Estim Creat Clear Calc Estimated GFR Glucose POC Capillary Glucose 105 112 H 98 Calcium Total Bilirubin AST ALT Alkaline Phosphatase Total Protein Albumin 08/16/24 08/16/24 05:29 08:48 WBC 4.8 RBC 3.16 L Hgb 8.4 L Hct 26.6 L MCV 84.2 MCH 26.6 MCHC 31.6 L RDW 15.3 H Plt Count 310 MPV 9.4 Immature Gran % (Auto) 0.4 Neut % (Auto) 54.6 Lymph % (Auto) 30.4 [place] % (Auto) 9.9 H Eos % (Auto) 4.5 H Baso % (Auto) 0.2 Lymph # (Auto) 1.47 [place] # (Auto) 0.5 Eos # (Auto) 0.2 Baso # (Auto) 0.0 Abs Immat Gran (auto) 0.02 Absolute Neuts (auto) 2.6 Absolute Nucleated RBC 0.000 Nucleated RBC % 0.0 Sodium 139 Potassium 3.0 L Chloride 103 Carbon Dioxide 33 H Anion Gap 3 L BUN 3 L Creatinine 0.60 L Estim Creat Clear Calc 61 Estimated GFR > 60 Glucose 115 H POC Capillary Glucose 115 H Calcium 8.6 Total Bilirubin 0.4 AST 27 ALT 11 Alkaline Phosphatase 87 Total Protein 6.0 L Albumin 3.2 L Quality VTE Prophylaxis VTE prophylaxis: pharmacologic ordered
[2024-08-16] MEDS: traMADol HCL (*CRX) 50 MG TABLET PO (11:30)
[2024-08-16] MEDS: POTASSIUM CHLORIDE 20 MEQ PACKET (FOR LIQUID) 40 MEQ PO (11:30)
--- NOTE | 2024-08-16 11:57 | PM.DS ---
DS: Admitting Diagnosis Discharge Date 08/16 Admitting Diagnosis ams DS: Discharge Diagnosis Discharge Diagnosis (1) Altered mental status: Qualifiers: Altered mental status type: disorientation Qualified Code(s): R41.0 - Disorientation, unspecified Code(s): R41.82 - Altered mental status, unspecified Status: Acute (2) Fever of unknown origin: Code(s): R50.9 - Fever, unspecified Status: Acute (3) Anemia: Qualifiers: Anemia type: unspecified type Qualified Code(s): D64.9 - Anemia, unspecified Code(s): D64.9 - Anemia, unspecified Status: Chronic (4) Type 2 diabetes mellitus: Qualifiers: Diabetes mellitus complication status: without complication Diabetes mellitus tank terminal gauger insulin use: without senior living use Qualified Code(s): E11.9 - Type 2 diabetes mellitus without complications Code(s): E11.9 - Type 2 diabetes mellitus without complications Status: Chronic (5) Hypertension: Qualifiers: Hypertension type: essential hypertension Qualified Code(s): I10 - Essential (primary) hypertension Code(s): I10 - Essential (primary) hypertension Status: Chronic (6) Frequent falls: Code(s): R29.6 - Repeated falls Status: Acute Assessment and Plan: - fall precautions - PT/OT DS: Summary Hospital Course Hospital Course: Interval history: 78 y/o F presents to the hospital from [facility] with altered mental status with PMH of anemia, chronic pain, depression/anxiety, emphysema, GERD, fatty liver, basal cell carcinoma, HTN, HLD, KIANNA (not on CPAP), psoriasis, seizures, and diabetes. following issues were addressed: # AMS Possible seizure due to dose being decreased for a few days vs acute metabolic encephalopathy given fever, however no clear infectious source. -lamictal 75 mg bid viral PCR and MRSA PCR negative - troponin <0.012 x2 - UA appears contaminated, UC negative - Blood culture NGTD - Hgb stable - CT chest/abd/pelvis: Stool distends the rectum. - Head CT: No acute intracranial findings - MRI 1. No acute intracranial process. 2. 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 3. Age-related changes including mild diffuse volume loss and cerebral and moderate scattered cerebral and pontine white matter T2 hyperintensity likely related to chronic small vessel ischemic disease. - Possible postictal state given that patient had been on an incorrect dose of her lamictal - Apnea link ordered to rule out KIANNA- needs f/u with pcp for sleep studies. Apnea link is abnormal: suspected pathol. breathing disorder . - she is alert/oriented during exam on 08/16 resolved # FUO fever of unknown origin Lactic 0.8, CRP 8.7, WBC 7.1. on admission. Fevers as high as 100.7 on 08/12. Patient has been afebrile since 08/13. 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 No acute osseous abnormality. - Shoulder XR: Lucency in the area of the greater tuberosity of the humerus is most likely degenerative. Fracture is less likely. CT is better for evaluation. Severe osteoarthritic changes of the glenohumeral joint. - Right UE CT 1. Moderate right acromioclavicular and glenohumeral osteoarthritis. No acute osseous abnormality. 2. Erosive and hypertrophic change along the middle and superior facets of the right greater tuberosity consistent with rotator cuff disease with minimal calcific density in the distal infraspinatus tendon consistent with calcific tendinitis. - CT abd/pelvis unrevealing - CTA chest ordered as PE can occasionally cause fever No pulmonary embolism or other acute cardiopulmonary disease. - MRI 1. No acute intracranial process. -received IV fluids - antipyretics prn - started on broad spectrum abx (allergy to Keflex): was on Vancomycin, Flagyl, Levaquin given concern for bacteremia given no other clear source. Vancomycin discontinued on 08/13 as MRSA negative. All antibiotics discontinued as there is no leukocytosis, she is afebrile, and no clear infectious source. -resolved # t2dm - hypoglycemia protocol - POC blood glucose ACHS - not currently on home medications - used to take metfromin but stopped due to side effects- diarrhea - correct regimen ordered - high dose TIDWM, based off BMI - A1C 9.3% on 06/30/2024 - since hga1c high and not on any meds- will start jardiance 10 mg daily- rx sent -will need repeat hg1AC and cmp in 3 months- goal under 7 # HTN -Metoprolol ER 50 mg daily - Losartan 100 mg daily - Imdur 15 mg daily - Hydralazine 25 mg t.i.d. - Amlodipine 10 mg HS - Renal US in the past was unremarkable - Apnea link ordered to rule out KIANNA as possible cause # hypokalemia k 3 replacement ordered will send rx for 1 week- will need to have level rechecked with PCP Status at Discharge Functional status at discharge: uses cane/walker Time Spent with Patient Time attestation: Total time spent providing and/or coordinating discharge services: Time spent: Greater than 30 minutes Exam Narrative: General: female in no acute respiratory distress who is nontoxic appearing, sitting up in bed. HEENT: Normocephalic. Atraumatic. Extraocular movement intact. Sclera clear and anicteric. No facial asymmetry. Chest: Lungs are clear to auscultation bilaterally. No wheezes or crackles. CV: Heart was regular rate and rhythm. S1-S2. No murmurs, gallops, or rubs. Abd: Abdomen was soft. Nontender. Nondistended. Positive bowel sounds. No organomegaly or masses. Ext: No clubbing, cyanosis, or edema. 2+ DP pulses bilaterally. Neuro: Patient is alert and oriented x4. Strength is symmetrical. Swelling to the right wrist has improved continues to have pain to palpation along the radial side and into the dorsum of the hand. ROM intact. Speech is clear. Const: General: comfortable and no acute distress Other: , female, elderly, mildly ill-appearing HENMT: Face/Nose/Sinus: Normal nares present Mouth: Yes dry mucous membranes Eyes: General: appearance normal, both eyes and all related structures Sclera: sclerae normal Pupils: Equal, round and reactive pupils present EOM: EOMs intact bilaterally Resp: Effort & Inspection: normal respiratory effort Auscultation: clear to auscultation bilaterally Cardio: Rate: regular rate Rhythm: regular rhythm Other: S1-S2 present without murmur, rub, ectopy GI: Other: Abdomen soft, nondistended, nontender Skin: General skin exam: normal color and no rashes or lesions noted Wounds: no wounds Neuro: Cranial nerves: Yes Equal, round and reactive pupils present Other: Generalized weakness. A&O x1. Some intermittent word-finding difficulty, appears more so to be difficulty recalling situational facts versus specific words. 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 Patient too weak to observe drift. No facial droop. Extrem: General: normal exam except as noted Other: Mild erythema to right wrist. Very tender. Psych: Other: Poor insight and judgment at present, pleasant DS: Data Data Completed and Pending Completed studies during hospitalization: shoukder ct, chest ct, brain mri, wrist xray, shoulder xray, elbow xray, chest/abd.pelvis ct, head ct Labs on day of discharge: Labs from last 24 hours 08/16/24 08/16/24 08/15/24 08:48 05:29 20:59 WBC 4.8 RBC 3.16 L Hgb 8.4 L Hct 26.6 L MCV 84.2 MCH 26.6 MCHC 31.6 L RDW 15.3 H Plt Count 310 MPV 9.4 Immature Gran % (Auto) 0.4 Neut % (Auto) 54.6 Lymph % (Auto) 30.4 [place] % (Auto) 9.9 H Eos % (Auto) 4.5 H Baso % (Auto) 0.2 Lymph # (Auto) 1.47 [place] # (Auto) 0.5 Eos # (Auto) 0.2 Baso # (Auto) 0.0 Abs Immat Gran (auto) 0.02 Absolute Neuts (auto) 2.6 Absolute Nucleated RBC 0.000 Nucleated RBC % 0.0 Sodium 139 Potassium 3.0 L Chloride 103 Carbon Dioxide 33 H Anion Gap 3 L BUN 3 L Creatinine 0.60 L Estim Creat Clear Calc 61 Estimated GFR > 60 Glucose 115 H POC Capillary Glucose 115 H 98 Calcium 8.6 Total Bilirubin 0.4 AST 27 ALT 11 Alkaline Phosphatase 87 Total Protein 6.0 L Albumin 3.2 L 08/15/24 08/15/24 17:19 12:03 WBC RBC Hgb Hct MCV MCH MCHC RDW Plt Count MPV Immature Gran % (Auto) Neut % (Auto) Lymph % (Auto) [place] % (Auto) Eos % (Auto) Baso % (Auto) Lymph # (Auto) [place] # (Auto) Eos # (Auto) Baso # (Auto) Abs Immat Gran (auto) Absolute Neuts (auto) Absolute Nucleated RBC Nucleated RBC % Sodium Potassium Chloride Carbon Dioxide Anion Gap BUN Creatinine Estim Creat Clear Calc Estimated GFR Glucose POC Capillary Glucose 112 H 105 Calcium Total Bilirubin AST ALT Alkaline Phosphatase Total Protein Albumin Preliminary micro results at discharge 08/12/24 13:49 Blood Culture - Preliminary Blood 08/12/24 13:49 Blood Culture - Preliminary Blood Discharge Plan Discharge Attending physician on discharge: Brittany Gregg Discharging Clinician: Smiley Naranjo Patient Disposition: [facility] Long Term/Asst Living Activity: january shower Diet: as tolerated and diabetic Discharge Instructions: you were admitted for fever and altered mental status. NO obvious source for that was found. You were treated WITH ANTIBIOTICS and received IV fluids. You improved and was determined stable for discharge on 08/16. Your hga1c was 9.3%- the goal for your age is to be under 7. Since metformin gave you side effects, we can try Jardiance. It is daily pill. It works by removing sugar out of your body- you basically peeing it out. So some side effects may include UTI and yeast infection. Please drink lots if water and clean up your diet a little bit- avoid sugary drinks, limit carbs and prioritize lean protein, fruits and veggies. Please remember that corn and potatoes are carbs and not veggies. your potassium was slightly low- so i will send you 1 week daily replacement. make sure you f/u with PCP for recheck Please f/u with PCP for sleep studies to ting. KIANNA (obstructive sleep apnea) Patient Instructions: Antibiotic Form Stand Alone Forms: General Discharge Information Discharge Medications: New Jardiance 10 mg tablet 10 mg PO DAILY Qty: 90 0RF potassium chloride 20 mEq Packet 40 meq PO DAILY Qty: 7 0RF Continued Cosentyx Pen 150 mg/mL Pen Injector 300 mg SUBCUT [id number] Patient Comments: DOSE DUE 07/30 Rx Instructions: Saturday nicotine [Nicoderm CQ] 21 mg/24 hr Patch 24 Hour 1 patch transdermal DAILY Qty: 10 0RF trazodone 50 mg tablet 100 mg PO HS Qty: 60 1RF tramadol 50 mg tablet 50 mg PO Q6H PRN (Reason: pain) Qty: 20 0RF pantoprazole 40 mg tablet,delayed release (DR/EC) 40 mg PO DAILY Atorvastatin [Lipitor] 40 mg PO DAILY Qty: 30 0RF isosorbide mononitrate 30 mg tablet extended release 24 hr 15 mg PO DAILY Qty: 30 0RF primidone 50 mg tablet 50 mg PO DAILY aspirin 81 mg Tablet,Delayed Release (Dr/Ec) 81 mg PO DAILY lamotrigine 25 mg tablet 75 mg PO BID metoprolol succinate 50 mg tablet extended release 24 hr 50 mg PO DAILY thiamine HCl (vitamin B1) [Vitamin B-1] 100 mg tablet 100 mg PO DAILY clopidogrel 75 mg tablet 75 mg PO DAILY hydroxyzine HCl 25 mg tablet 25 mg PO DAILY duloxetine 60 mg capsule,delayed release(DR/EC) 120 mg PO DAILY Ocuvite with Lutein 300 mcg-200 mg-27 mg-2 mg tablet 2 tablet PO DAILY amlodipine [Norvasc] 5 mg tablet 10 mg PO HS Qty: 180 3RF hydrocortisone [Anusol-HC] 2.5 % cream with perineal applicator 1 applic RECTAL DAILY PRN (Reason: hemorrhoids) Qty: 30 0RF Rx Instructions: Daily, every other day losartan 100 mg tablet 100 mg PO DAILY Qty: 90 3RF hydralazine 25 mg Tablet 25 mg PO TID Qty: 90 0RF docusate sodium 100 mg Capsule 100 mg PO BID Qty: 60 0RF folic acid 1 mg Tablet 1 mg PO DAILY Qty: 30 0RF acetaminophen 500 mg Tablet 500 mg PO BID PRN (Reason: pain) Qty: 30 0RF gabapentin 300 mg capsule 600 mg PO BID Qty: 270 1RF Date of admission: 08/12/24 18:11 Primary Care Provider: Hugh Mendez Admitting Provider: Geoffrey Cook Attending physician on admission: Tana Gonzalez Condition: Stable Quality VTE Prophylaxis VTE prophylaxis: pharmacologic ordered Hospitalist MIPS Heart Failure (Exclusion) Patient has history of Heart Transplant or Left Ventricular Assistive Device?: No IF YES, STOP HERE Heart Failure (Qualifier) Patient has current or prior documentation of LVEF less than or equal to 40%, or mod/servere depressed LVSF?: No IF NO, STOP HERE
[2024-08-16 12:07] LABS: Glucose Point of Care 164 mg/dl (65-105)
== END 2024-08-16 13:38 | DRG 72 ==
LOC: ANHED 18:10 → ANH3MED 08-13 06:55
PROVIDERS: Student in an Organized Health Care Education/Training Program; Admitting Provider Internal Medicine; Emergency Provider Emergency Medicine; PCP Emergency Medicine; Visit Provider Student in an Organized Health Care Education/Training Program
DX: G93.41 Metabolic encephalopathy (principal); R56.9 Unspecified convulsions; T42.75XA Adverse effect of unspecified antiepileptic and sedative-hypnotic drugs, initial encounter; R50.9 Fever, unspecified; Z86.73 Personal history of transient ischemic attack (TIA), and cerebral infarction without residual deficits; D64.9 Anemia, unspecified; E78.2 Mixed hyperlipidemia; E11.9 Type 2 diabetes mellitus without complications; E87.6 Hypokalemia; F17.210 Nicotine dependence, cigarettes, uncomplicated; F41.9 Anxiety disorder, unspecified; F32.A Depression, unspecified; G89.29 Other chronic pain; G47.33 Obstructive sleep apnea (adult) (pediatric); I10 Essential (primary) hypertension; J43.9 Emphysema, unspecified; K21.9 Gastro-esophageal reflux disease without esophagitis; K76.0 Fatty (change of) liver, not elsewhere classified; L40.9 Psoriasis, unspecified; M15.9 Polyosteoarthritis, unspecified; R29.6 Repeated falls; Z66 Do not resuscitate; Z90.49 Acquired absence of other specified parts of digestive tract; Z85.828 Personal history of other malignant neoplasm of skin; Z79.82 Long term (current) use of aspirin; Z79.02 Long term (current) use of antithrombotics/antiplatelets; Z20.822 Contact with and (suspected) exposure to COVID-19
CPT/HCPCS: 36415; 70450; 70551; 71045; 71260; 71275; 73030; 73070; 73100; 73200; 74177; 80053; 81001; 82948; 83605; 83690; 83735; 83880; 84100; 84145; 84484; 85025; 85610; 85652; 85730; 86140; 87040; 87086; 87637; 87641; 93005; 94762; 96365; 96366; 96367; 97110; 97161; 97166; 99285; A9270; J1836; J1956; J3370; J3480; J7030; J7040; J7120; Q9967

== ENCOUNTER 2024-09-14 23:13 | Emergency (ER) | payer MEDICARE, OTHER, SELFPAY ==
--- NOTE | ~2024-09-14 | CT_ITS ---
CT head without contrast Indication: Status post fall COMPARISON: 08/12/2024 Technique: Serial scans were obtained through the brain without the administration of contrast. Dose reduction technique was used on this scan by utilizing automated exposure control and iterative recon struction technique. The dose-length product (DLP) was 681.00 mGy-cm. Findings: There is no evidence of intracranial hemorrhage, mass lesion, or acute infarct. The ventri cles and subarachnoid spaces are dilated, consistent with mild to moderate atrophy. Low attenuation regions are seen within the periventricular white matter bilaterally, likely representing changes fro m chronic microvascular ischemic disease. There is no evidence of edema, mass effect or midline shif t. The visualized paranasal sinuses and mastoid air cells are clear. Impression: No intracranial hemorrhage, mass, or acute infarct. Atrophy and chronic white matter changes, as above. Reviewed, dictated and finalized at location M. CONTROLLED MACHINE STITCHER Impression: No intracranial hemorrhage, mass, or acute infarct. Atrophy and chronic white matter changes, as above.
--- NOTE | ~2024-09-14 | CT_ITS ---
Noncontrast CT scan of the cervical spine Technique: Multiple contiguous axial [address] images of the cervical spine were obtained and rec onstructed in 2D sagittal and coronal planes on the acquisition scanner. Dose reduction technique was used on this scan by utilizing automated exposure control, adjustment of the mA and/or kV according to patient size. The dose-length product (DLP) was 362.93 mGy-cm. Clinical History: Pain COMPARISON: 2023 Findings: No fractures or dislocations. Stable degenerative disc narrowing, especially C5-C6 and C6- C7. Stable scattered facet joint degenerative changes. Probable right neural foraminal narrowing C3-C 4. Stable mild bilateral neural foraminal narrowing at C5-C6. Stable left neural foraminal narrowing at C6-C7. No prevertebral soft tissue swelling. Impression: No fracture or subluxation of the cervical spine. Stable degenerative spondylosis. Reviewed, dictated and finalized at [facility]. PATIONAL THERAPY TECHNICIAN Impression: No fracture or subluxation of the cervical spine. Stable degenerative spondylosis.
[2024-09-14 23:13] VITALS: BP 149/128; PULSE 96; RESP 18; TEMP 36.8; O2SAT 96
--- NOTE | 2024-09-14 23:33 | ED.GENADULT ---
HPI - General Adult General Chief complaint: Fall Stated complaint: GLF, + THINNERS History of Present Illness HPI narrative: This is a pleasant 78-year-old female presenting after a ground level fall. Patient is trying to use the restroom when she slipped on some water on the floor. She fell onto her back and struck the back of her head. She did not lose consciousness. She is on Plavix. Patient is able to get up off the floor and go back to bed. However she was advised to come hospital due to his blood thinners. Patient has no other complaints at this time. Related Data Home Medications ?Medication ?Instructions ?Recorded ?Confirmed ?Last Taken ?Type aspirin 81 mg tablet,delayed 81 mg PO DAILY 10/10/23 08/12/24 07/20/24 08:32 History release lamotrigine 25 mg tablet 75 mg PO BID 10/10/23 08/12/24 07/20/24 08:34 History metoprolol succinate 50 mg 50 mg PO DAILY 10/10/23 08/12/24 07/20/24 08:33 History tablet,extended release 24 hr primidone 50 mg tablet 50 mg PO DAILY 10/10/23 08/12/24 07/20/24 08:34 History pantoprazole 40 mg tablet,delayed 40 mg PO DAILY 06/30/24 08/12/24 07/20/24 08:34 History release secukinumab 150 mg/mL subcutaneous 300 mg subcut [id number] 07/30/24 08/12/24 Unknown History pen injector (Cosentyx Pen) clopidogrel 75 mg tablet 75 mg PO DAILY 08/12/24 08/12/24 Unknown History duloxetine 60 mg capsule,delayed 120 mg PO DAILY 08/12/24 08/12/24 Unknown History release hydroxyzine HCl 25 mg tablet 25 mg PO DAILY 08/12/24 08/12/24 Unknown History thiamine HCl (vitamin B1) 100 mg 100 mg PO DAILY 08/12/24 08/12/24 Unknown History tablet (Vitamin B-1) vit A 300 mcg-C 200 mg-E 27 2 tablet PO DAILY 08/12/24 08/12/24 Unknown History mg-lutein 2 mg and minerals tablet (Ocuvite with Lutein) Allergies Allergy/AdvReac Type Severity Reaction Status Date / Time cephalexin Allergy Severe Anaphylaxis Verified 08/12/24 14:26 [facility] Past Medical History Medical History Hallucinations Chronic pain Osteoporosis Ankylosing spondylitis of multiple sites in spine Seronegative rheumatoid arthritis of multiple sites patient of Dr. Shahriar Cook Type 2 diabetes mellitus Tobacco abuse Macular degeneration Obstructive sleep apnea History of basal cell carcinoma (BCC) Hypertension Sleep apnea in adult does not use CPAP Anemia Shingles Anxiety Depression Fatty liver Bronchitis Emphysema of lung Anal fissure Peripheral neuropathy Seizures (1973) B12 deficiency Gastro-esophageal reflux disease without esophagitis Mixed hyperlipidemia Psoriasis Diverticulitis Surgical History Surgical History History of benign breast biopsy History of appendectomy History of cataract extraction with lens replacement History of tubal ligation History of dilatation and curettage History of section History of sinus surgery History of lumbar laminectomy Status post anal fissurectomy History of colonoscopy History of carpal tunnel release Family History Family History Mother Hypertension, Onset Age: 97 Father Family history of malignant neoplasm Family history of lung cancer, Onset Age: 94 Colon cancer Sibling Family history of blood dyscrasia Other Family history of arthritis Family history of seizure disorder No family history of cardiovascular disease No family history of diabetes mellitus No family history of hypertension Prediabetes Social History Social History Social History: Surrogate medical decision maker: Misha Nam, spouse. Code status: Long discussion about options and the patient wishes to be DNR Smoking packs per day: 0.5 Smoking cigarettes per day: 10.0 Years smoked: 64 Smoking pack-years: 32.00 Smoking status: Smoker, status unknown Tobacco type: cigarettes Second hand tobacco smoke exposure: Yes Additional smoking assessment comments: 1-1.5 ppd for 59 years Alcohol intake: never Drinks per week: 14 Alcohol use details: beer-occasionally Substance use: never Do You Feel Safe in your Home?: Yes Lack of Transportation: No Lack of Food: Never True Current Housing: I Have Housing Concerned About Future Housing: No Difficulty Paying Gas/Electric Bills: No Difficulty Paying for Meds: No Currently Unemployed: No Education: Master's Degree or Higher Difficulty w/ Childcare or Family Care: No Living arrangements: with family Additional living arrangements comments: Lives with in [place]. Gender identity (if verbalized by the patient): Female Sexual Orientation (if Verbalized by the Patient): Straight or Heterosexual Spiritual care concerns: No Exam Narrative: APPEARANCE: No apparent distress. Head: atraumatic. EYES: EOMI, NOSE: Atraumatic NECK: No midline cervical tenderness RESPIRATORY: No increased rate of breathing CARDIOVASCULAR: RRR, ABDOMINAL: Non-distended MUSCULOSKELETAl: head to toe trauma exam revealed no areas pain or deformity NEURO: Alert. Cranial nerves 2-12 grossly intact. Sensation light touch, motor function cerebellar function intact for 4 extremities. Gait exam was normal. SKIN:: Warm, dry. Normal color PSYCHIATRIC: Normal affect Course Vital Signs Vital signs: Vital Signs Temperature 98.2 F 09/14/24 23:13 Pulse Rate 96 09/14/24 23:13 Respiratory Rate 18 09/14/24 23:13 Blood Pressure 149/128 H 09/14/24 23:13 Pulse Oximetry 96 09/14/24 23:13 Temperature 98.2 F 09/14/24 23:13 Pulse Rate 92 09/15/24 00:23 Respiratory Rate 13 09/15/24 00:23 Blood Pressure 153/67 H 09/15/24 00:23 Pulse Oximetry 93 09/15/24 00:23 Medical Decision Making MDM Narrative Medical decision making narrative: -Course: 70-year-old female presenting mechanical fall. CT head and C-spine negative for traumatic injury. Vital signs stable ad well appearing. No other findings on history physical. Patient discharged. Vital Signs Vital Signs: Vital Signs Temperature 98.2 F 09/14/24 23:13 Pulse Rate 96 09/14/24 23:13 Respiratory Rate 18 09/14/24 23:13 Blood Pressure 149/128 H 09/14/24 23:13 Pulse Oximetry 96 09/14/24 23:13 Temperature 98.2 F 09/14/24 23:13 Pulse Rate 92 09/15/24 00:23 Respiratory Rate 13 09/15/24 00:23 Blood Pressure 153/67 H 09/15/24 00:23 Pulse Oximetry 93 09/15/24 00:23 Discharge Plan Discharge Clinical Impression: Fall Patient Disposition: Home, Self-Care Condition: Stable Instructions: Antibiotic Form, Fall Prevention for Older Adults (ED) Additional Instructions: Please practice fall safety. Review your head please come back to the ED. You can return if you develop any numbness/tingling/weakness, persistent vomiting or or would like re-evaluation. Patient Language: Lithuanian Prescriptions: No Action Cosentyx Pen 150 mg/mL Pen Injector 300 mg SUBCUT [id number] Patient Comments: DOSE DUE 07/30 Rx Instructions: Saturday nicotine [Nicoderm CQ] 21 mg/24 hr Patch 24 Hour 1 patch transdermal DAILY Qty: 10 0RF trazodone 50 mg tablet 100 mg PO HS Qty: 60 1RF tramadol 50 mg tablet 50 mg PO Q6H PRN (Reason: pain) Qty: 20 0RF pantoprazole 40 mg tablet,delayed release (DR/EC) 40 mg PO DAILY Atorvastatin [Lipitor] 40 mg PO DAILY Qty: 30 0RF isosorbide mononitrate 30 mg tablet extended release 24 hr 15 mg PO DAILY Qty: 30 0RF primidone 50 mg tablet 50 mg PO DAILY aspirin 81 mg Tablet,Delayed Release (Dr/Ec) 81 mg PO DAILY lamotrigine 25 mg tablet 75 mg PO BID metoprolol succinate 50 mg tablet extended release 24 hr 50 mg PO DAILY thiamine HCl (vitamin B1) [Vitamin B-1] 100 mg tablet 100 mg PO DAILY clopidogrel 75 mg tablet 75 mg PO DAILY hydroxyzine HCl 25 mg tablet 25 mg PO DAILY duloxetine 60 mg capsule,delayed release(DR/EC) 120 mg PO DAILY Ocuvite with Lutein 300 mcg-200 mg-27 mg-2 mg tablet 2 tablet PO DAILY potassium chloride 20 mEq Packet 40 meq PO DAILY Qty: 7 0RF Jardiance 10 mg tablet 10 mg PO DAILY Qty: 90 0RF amlodipine [Norvasc] 5 mg tablet 10 mg PO HS Qty: 180 3RF hydrocortisone [Anusol-HC] 2.5 % cream with perineal applicator 1 applic RECTAL DAILY PRN (Reason: hemorrhoids) Qty: 30 0RF Rx Instructions: Daily, every other day losartan 100 mg tablet 100 mg PO DAILY Qty: 90 3RF hydralazine 25 mg Tablet 25 mg PO TID Qty: 90 0RF docusate sodium 100 mg Capsule 100 mg PO BID Qty: 60 0RF folic acid 1 mg Tablet 1 mg PO DAILY Qty: 30 0RF acetaminophen 500 mg Tablet 500 mg PO BID PRN (Reason: pain) Qty: 30 0RF gabapentin 300 mg capsule 600 mg PO BID Qty: 270 1RF Follow-up/Referrals: Hugh Mendez MD [Primary Care Provider] -
[2024-09-15 00:23] VITALS: BP 153/67; PULSE 92; RESP 13; O2SAT 93
[2024-09-15 04:30] VITALS: BP 142/67; PULSE 90; RESP 14; O2SAT 97
--- OUTSIDE RECORDS SUMMARY | 2024-09-22 02:08 | XMS_ITS | Clinical Summary ---
Author Organization [facility] [employer] Address [address] [place] [address] Care Team Providers Care Aluminum Pool Installer Name Role Phone Akin Coyne MD Primary Care Provider [phone] Adan Umana MD Unavailable [phone] Source Comments [facility] [employer],non-owned Affiliates and Associated Physician Practices is amultiple site organization consisting of ambulatory clinics and hospital sitesin [place] and [place]. This disclosure is being madepursuant to the Care Everywhere program and may not contain all information available regarding this patient. Last updated 18.[facility] [employer] Allergies Active Allergy Reactions Criticality Noted Date Comments Cephalexin Swelling 09/27/2015 Pseudoephedrine-Ibuprofen Unknown 01/17/2011 Medications * Be aware that medications may not be up to date on this document. Alwaysverify current medications with the patient. Medication Sig Dispensed Refills Start Date End Date Status DULoxetine (CYMBALTA) 60 MG capsule Take 2 (two) capsules by mouth once daily Active traZODone (DESYREL) 50 MG tablet Take 1 (one) tablet by mouth at bedtime Taking 2 tablets at bedtime Active gabapentin (NEURONTIN) 300 MG capsule Take 1 (one) capsule by mouth 3 times daily Activ e Cholecalciferol (VITAMIN D-3 PO) Take 25 mg by mouth once daily Active amLODIPine (NORVASC) 10 MG tablet 0.5 (one-half) tablet 3 01/13/2018 Act doe fluticasone propionate (FLONASE) 50 MCG/ACT nasal spray SHAKE LQ AND U 1 TO 2 SPRAYS IEN QD PRN 0 11/01/2017 Active ASPIRIN LOW DOSE 81 MG chew tablet Take 1 (one) tablet by mouth once daily 07/16/2021 Active acetaminophen (TYLENOL) 500 MG tablet Take 1 (one) tablet by mouth every 6 hours as needed Active albuterol HFA (PROVENTIL; VENTOLIN; PROAIR) 108 (90 Base) MCG/ACT inhaler Inhale 2 (two) puffs by mouth every 6 hours as needed 09/22/2021 Active amLODIPine (NORVASC) 5 MG tablet Take 1 (one) tablet by mouth 2 times daily 12/24/2021 Active ascorbic acid (VITAMIN C) 500 MG tablet Take 500 mg by mouth once daily 01/12/2022 Active azithromycin (ZITHROMAX) 250 MG tablet Take 1 tablet by mouth once daily 09/29/2021 Active lamoTRIgine (LAMICTAL) 100 MG tablet Take 25 mg by mouth once daily 12/19/2021 Active LORazepam (ATIVAN) 0.5 MG tablet Take 1 (one) tablet by mouth once daily as needed FOR ANXIETY 01/12/2022 Active pantoprazole EC (PROTONIX) 40 MG tablet Take 40 mg by mouth every morning 12/18/2021 Active traMADol (ULTRAM) 50 MG tablet Take 1 (one) tablet by mouth 3 times daily With OTC Tylenol 01/19/2022 Active metoprolol succinate XL 24hr (TOPROL XL) 100 MG tablet Take 1 (one) tablet by mouth once daily 12/26/2021 Active secukinumab (COSENTYX) 150 MG/ML prefilled syringe Inject 300 (three hundred) mg subcutaneously every 14 days Active thiamine (Vitamin B1) 100 MG tablet Take 1 tablet by mouth every morning 03/24/2022 Active omeprazole (PriLOSEC) 40 MG capsule Take 1 (one) capsule by mouth daily before breakfast Active sulfaSALAzine (Azulfidine) 500 MG tablet Take 1 (one) tablet by mouth 3 times daily Active primidone (Mysoline) 50 MG tablet Take 1 (one) tablet by mouth once daily Active diclofenac sodium EC (Voltaren) 75 MG tablet Take 1 (one) tablet by mouth once daily Active lamoTRIgine (LaMICtal) 25 MG tablet Take 1 (one) tablet by mouth once daily 02/13/2023 Active ciprofloxacin (Cipro) 500 MG tablet Take 1 (one) tablet by mouth every 12 hours 08/12/2023 Active losartan (Cozaar) 50 MG tablet Take 1 (one) tablet by mouth once daily 06/23/2023 Active methylPREDNISolone (Medrol Dosepak) 4 MG tablet TAKE 6 TABLETS ON DAY 1 DIRECTED ON PACKAGE AND DECREASE BY 1 TAB EACH DAY FOR A TOTAL OF 6 DAYS 05/22/2023 Active metroNIDAZOLE (Flagyl) 500 MG tablet Take 1 (one) tablet by mouth every 12 hours 08/12/2023 Active HYDROcodone-acetam inophen ([place]) 5-325 MG tablet Take 1 (one) tablet by mouth every 4 hours as needed pain 10/18/2023 Active levoFLOXacin (Levaquin) 750 MG tablet Take 1 (one) tablet by mouth once daily 08/30/2023 Active meloxicam (Mobic) 7.5 MG tablet Take 1 (one) tablet by mouth once daily 10/31/2023 Active docusate sodium (Colace) 100 MG capsule Take 1 (one) capsule by mouth 04/27/2024 Active hydrocortisone, rectal, (Anusol-HC) 2.5 % cream APPLY RECTALLY DAILY AT BEDTIME NEEDED FOR HEMORRHOIDS 02/21/2024 Active hydrOXYzine HCl (Atarax) 25 MG tablet TAKE 1 TABLET BY MOUTH TWICE A DAY NEEDED FOR ITCHING 11/28/2023 Active predniSONE (Deltasone) 5 MG tablet PLEASE SEE ATTACHED FOR DETAILED DIRECTIONS 03/23/2024 Active pregabalin (Lyrica) 50 MG capsule TAKE 1 CAPSULE (50 MG) BY ORAL ROUTE 3 TIMES PER DAY NEEDED FOR NEUROPATHY 03/23/2024 Active Active Problems Problem Noted Date Diagnosed Date Osteoporosis 11/23/2022 Primary osteoarthritis of left knee 05/30/2022 Postmenopausal 12/23/2018 Disorder of bone density and structure, unspecif ied 12/23/2018 KIANNA (obstructive sleep apnea) 12/22/2018 Other specified rheumatoid arthritis, multiple s ites 09/20/2015 Overview (09/20/2015): RICCARDO CCP rheumatoid factor negative, chronic inflammatory polyarthritis with prolonged morning stiffness and symmetric polyarticular distribution involving the small joints of the hands and feet Social History Tobacco Use Types Packs/Day Years Used Date Smoking Tobacco: Former Cigarettes Q uit: 11/16/2018 Smokeless Tobacco: Never Tobacco Cessation:Counseling Given: Not Answered PHQ-2 Answer Date Recorded Patient Health Questionnaire-2 Score 3 08/27/2023 Sex and Gender Information Value Date Recorded Sex Assigned at Not on file Gender Identity Not on file Sexual Orientation Not on file Last Filed Vital Signs Vital Sign Reading Time Taken Comments Blood Pressure 164/67 07/10/2023 2:40 PM CDT Pulse 68 07/10/2023 2:40 PM CDT Temperature 36.8 ??C (98.3 ??F) 07/10/2023 2:40 PM CD T Respiratory Rate 20 07/10/2023 2:40 PM CDT Oxygen Saturation 96% 07/10/2023 2:40 PM CDT Inhaled Oxygen Concentration - - Weight 86.2 kg (190 lb) 11/26/2023 12:58 PM CDT Height 157.5 cm (5' 2 ) 11/26/2023 12:58 PM CDT Body Mass Index 34.75 11/26/2023 12:58 PM CDT Plan of Treatment Health Maintenance Due Date Last Done Comments BONE DENSITY TESTING 1945 MEDICARE AWV ? 12 MONTHS 1945 HEPATITIS C SCREENING 11/11/1963 DTAP/TDAP/TD VACCINES (1 - Tdap) 1964 ZOSTER VACCINE (1 of 2) 11/16/1995 PNEUMOCOCCAL VACCINE 65+ (1 of 1 - PCV) 2010 Respiratory Syncytial Virus (RSV) Vaccine Pt: or over 60 yrs (1 - 1-dose 75+ series) 2020 DEPRESSION SCREENING 09/16/2023 12/11/2022 COVID-19 VACCINE (1 - 2023-2 5 season) 2024 INFLUENZA VACCINE (#1) 2024 HEPATITIS B VACCINE Aged Out No longe r eligible based on patient's age to complete this topic HIB VACCINE Aged Out No longer eligi ble based on patient's age to complete this topic HPV VACCINE Aged Out No longer eligi ble based on patient's age to complete this topic MENINGOCOCCAL VACCINE Aged Out No sita nathaly eligible based on patient's age to complete this topic Care Teams Aluminum Pool Installer Relationship Specialty Start Date End Date Akin Coyne MD [address] [place] [id number] PCP - General Family Medicine 07/19/15 [place] [id number] [address] Physical Medicine and Rehabilitation 01/23/18
--- OUTSIDE RECORDS SUMMARY | 2024-09-22 02:08 | XMS_ITS | Referral Summary ---
Author Organization [facility] [employer] Address [address] [place] [address] Care Team Providers Care Cafeteria Counter Attendant Name Role Phone Akin Coyne MD Primary Care Provider [phone] Adan Umana MD Unavailable [phone] Source Comments [facility] [employer],non-owned Affiliates and Associated Physician Practices is amultiple site organization consisting of ambulatory clinics and hospital sitesin [place], [place], [place] and [place]. This disclosure is being madepursuant to the Care Everywhere program and may not contain all information available regarding this patient. Last updated 18.[facility] [employer] Allergies Active Allergy Reactions Criticality Noted Date [...] every 12 hours 08/12/2023 Active HYDROcodone-acetam inophen ([place]) 5-325 MG tablet Take 1 (one) tablet [...] 11/26/2023 12:58 PM CDT Plan of Treatment Not on file Care Teams Cafeteria Counter Attendant Relationship Specialty Start Date End Date Akin Coyne MD [address] [place] [id number] PCP - General Family Medicine 07/19/15 [place] [id number] [address] Physical Medicine and Rehabilitation 01/23/18
--- OUTSIDE RECORDS SUMMARY | 2024-09-22 02:09 | XMS_ITS | Encounter Summary ---
Author Organization [facility] Address [address] [place] [address] Care Team Providers Care Child Support Case Officer Name Role Phone Akin Coyne MD Primary Care Provider [phone] Reason for Visit * Oncology Prior Authorization - Closed Specialty Diagnoses / Procedures Referred By Contac t Referred To Contact Infusion Therapy Nurse Diagnoses Other specified rheumatoid arthritis, multiple sites (HCC) Procedures UT INFLIXIMAB INJECTION Shahriar Cook MD [facility] [id number] [place] [phone] Referral ID Status Reason Start Date Expiration Date Visits Re quested Visits Authorized [id number] Closed 09/20/2015 09/15/2016 1 12 Encounter Details Date Type Department Care Team (Latest Contact Info) Description 01/04/2016 9:02 AM CDT - 01/04/2016 11:59 PM CDT Hospital Encounter Infusion Services at [facility] [address] [place] [address] Shahriar Cook MD Discharge Disposition: Home or Self Care Social History Tobacco Use Types Packs/Day Years Used Date Smoking Tobacco: Never Assessed Sex and Gender Information Value Date Recorded Sex Assigned at Not on file Gender Identity Not on file Sexual Orientation Not on file documented as of this encounter Last Filed Vital Signs Vital Sign Reading Time Taken Comments Blood Pressure 153/78 01/04/2016 11:20 AM CDT Pulse 88 01/04/2016 11:20 AM CDT Temperature 36.4 ??C (97.6 ??F) 01/04/2016 11:20 AM C DT Respiratory Rate 18 01/04/2016 11:20 AM CDT Oxygen Saturation - - Inhaled Oxygen Concentration - - Weight 78.5 kg (173 lb) 01/04/2016 11:20 AM CDT Height 157.5 cm (5' 2 ) 01/04/2016 11:20 AM CDT Body Mass Index 31.64 01/04/2016 11:20 AM CDT documented in this encounter Progress Notes * Hanny Rodriguez, RN - 01/04/2016 11:17 AM CDT SHWETA Blanca [place] Cyril [id number] 01/04/2016 Diagnosis: There are no admission diagnoses documented for this encounter.. BP 153/78 mmHg Pulse 88 Temp(Src) 97.6 ??F Resp 18 Wt 78.472 kg (173 lb) BMI 31.63 kg/m2 @ MEDICATIONS FOR CURRENT ENCOUNTER: ?? SCHEDULED MEDICATIONS: ?? CONTINUOUS MEDICATIONS: ?? inFLIXimab (REMICADE) 300 mg in 0.9% NaCl infusion, Intravenous, Continuous PRN MEDICATIONS: ?? Number of 24 gauge 3/4 inch placed in Left antecubital ?? 1 attempt(s). ?? Pt had will have blood work done today at her apt 01/04/16 Patient monitored throughout procedure. Tolerated well? Yes Next treatment? 8 weeks Hanny Rodriguez RN documented in this encounter Plan of Treatment Not on file documented as of this encounter Visit Diagnoses Diagnosis Other specified rheumatoid arthritis, multiple sites (HCC) documented in this encounter Administered Medications Inactive Administered Medications - up to 3 most recent administrations Medication Order MAR Action Action Date Dose Rate Site inFLIXimab (REMICADE) 300 mg in 0.9% NaCl infusion 300 mg, at 10-250 mL/hr, Intravenous, CONTINUOUS, Starting on Sat01/04/16 at 0945, Until Sat01/04/16 at 1144, Refrigerate. Use with in-line filter. $ New Bag/Syringe 01/04/2016 9:48 AM CDT 300 mg 125 mL/hr documented in this encounter Care Teams Child Support Case Officer Relationship Specialty Start Date End Date Akin Coyne MD [address] [place] [id number] PCP - General Family Medicine 11/3/15 documented as of this encounter
--- OUTSIDE RECORDS SUMMARY | 2024-09-22 02:09 | XMS_ITS | Encounter Summary ---
Author Organization [facility] Address [address] [facility] [place] [address] Care Team Providers Care Numerical Control Tool Programmer Name Role Phone Akin Coyne MD Primary Care Provider [phone] Adan Umana MD Unavailable [phone] Reason for Referral * Evaluate & Treat - Closed Specialty Diagnoses / Procedures Referred By Lavell peralta Referred To Contact Diagnoses Chronic pain of both shoulders Personal history of fall Bilateral rotator cuff dysfunction 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 Amy Simmons PA-C [id number] [place] [address] Referral ID Status Reason Start Date Expiration Date V isits Requested Visits Authorized [id number] Closed Specialty Services Required 02/20/2023 02/20/2024 12 12 Scheduling Instructions Treat and treat Gait training and fall precautions Modalities p.r.n. Rotator Cuff Tendonitis Rehabilitation Evaluate and Treat, Modalities as indicated Pendulum motion as needed Progression of ROM then strengthening Neuromuscular control of scapulothoracic joint Isometric strengthening Strengthening of cuff ER with arm at side, then progress Theraband tubing for IR and ER Endurance strengthening and functional training * OP/Amb RFL Auth (Routine) - Closed Specialty Diagnoses / Procedures Referred By Lavell peralta Referred To Contact Diagnoses Bilateral rotator cuff dysfunction 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 Procedures WA DRAIN/INJECT LARGE JOINT/BURSA Amy Simmons PA-C [id number] [place] [address] Referral ID Status Reason Start Date Expiration Date Visits Re quested Visits Authorized [id number] Closed 02/20/2023 02/20/2024 1 1 Reason for Visit * Reason Comments Upper Extremity Problem Bilateral should ers Encounter Details Date Type Department Care Team (Late st Contact Info) Description 02/20/2023 1:40 PM CDT Office Visit [facility] Orthoped[facility] [id number] [id number] [place] [id number] [facility] [address] [place] [address] Primary osteoarthritis of left shoulder (Primary Dx); Chronic pain of both shoulders; Personal history of fall; Bilateral rotator cuff dysfunction; Primary osteoarthritis of right shoulder, mild Social History Tobacco Use Types Packs/Day Years Used Date Smoking Tobacco: Former Cigarettes Q uit: 11/16/2018 Smokeless Tobacco: Never Tobacco Cessation:Counseling Given: Not Answered PHQ-2 Answer Date Recorded PHQ2 TOTAL SCORE 0 12/11/2022 Sex and Gender Information Value Date Recorded Sex Assigned at Not on file Gender Identity Not on file Sexual Orientation Not on file documented as of this encounter Last Filed Vital Signs Vital Sign Reading Time Taken Comments Blood Pressure - - Pulse - - Temperature - - Respiratory Rate - - Oxygen Saturation - - Inhaled Oxygen Concentration - - Weight 86.2 kg (190 lb) 02/20/2023 1:30 PM CDT Height 157.5 cm (5' 2 ) 02/20/2023 1:30 PM CDT Body Mass Index 34.75 02/20/2023 1:30 PM CDT documented in this encounter Progress Notes * Amy Simmons PA - 02/20/2023 1:37 PM CDT CHIEF COMPLAINT: 1. Bilateral shoulder pain. HISTORY OF PRESENT ILLNESS: Blanca Nam is a 77 year old female who is here for evaluation of thebilateral shoulder(s). This patient has had multiple years of symtoms. She denies any specific injury or inciting event that caused the bilateral shoulder pain. However she does note she does have repetitive falls in often braces herself with her bilateral shoulders. She does use a rolling walker. She reports pain with above shoulder level activity, deltoid pain, night pain. She has use tramadol and Tylenol. She presents today further evaluation management for bilateral shoulder pain. Of note, she does report a history of rheumatoid arthritis, psoriatic arthritis, and ankylosing spondylitis. Her college service officer is Dr. Cook. PAST MEDICAL HISTORY: Obstructive sleep apnea, rheumatoid arthritis, disorder of bone density, osteoporosis, psoriatic arthritis, ankylosing spondylitis, knee DJD PAST SURGICAL HISTORY: No past surgical history on file. MEDICATIONS: Current Medications acetaminophen (TYLENOL) 500 MG tablet Take 500 mg by mouth every 6 hours as needed albuterol HFA (PROVENTIL; VENTOLIN; PROAIR) 108 (90 Base) MCG/ACT inhaler Inhale 2 puffs by mouth every 6 hours as needed amLODIPine (NORVASC) 10 MG tablet 5 mg amLODIPine (NORVASC) 5 MG tablet Take 1 (one) tablet by mouth 2 times daily ascorbic acid (VITAMIN C) 500 MG tablet Take 500 mg by mouth once daily ASPIRIN LOW DOSE 81 MG chew tablet Take 81 mg by mouth once daily azithromycin (ZITHROMAX) 250 MG tablet Take 1 tablet by mouth once daily Cholecalciferol (VITAMIN D-3 PO) Take 25 mg by mouth once daily diclofenac sodium EC (Voltaren) 75 MG tablet Take 1 (one) tablet by mouth once daily DULoxetine (CYMBALTA) 60 MG capsule Take 60 mg by mouth once daily fluticasone propionate (FLONASE) 50 MCG/ACT nasal spray SHAKE LQ AND U 1 TO 2 SPRAYS IEN QD PRN folic acid (Folvite) 1 MG tablet Take 1 mg by mouth once daily gabapentin (NEURONTIN) 300 MG capsule Take 300 mg by mouth 3 times daily Two tablets three times per day lamoTRIgine (LAMICTAL) 100 MG tablet Take 25 mg by mouth 2 times daily lamoTRIgine (LaMICtal) 25 MG tablet LORazepam (ATIVAN) 0.5 MG tablet Take 0.5 mg by mouth once daily as needed FOR ANXIETY metFORMIN (GLUCOPHAGE) 500 MG tablet Take 2 tablets by mouth at bedtime metFORMIN ER 24hr (Glucophage XR) 500 MG tablet metoprolol succinate XL 24hr (TOPROL XL) 100 MG tablet Take 100 mg by mouth once daily omeprazole (PriLOSEC) 40 MG capsule Take 1 (one) capsule by mouth daily before breakfast pantoprazole EC (PROTONIX) 40 MG tablet Take 40 mg by mouth every morning primidone (Mysoline) 50 MG tablet Take 1 (one) tablet by mouth once daily secukinumab (COSENTYX) 150 MG/ML prefilled syringe Inject 300 mg subcutaneously every 28 days sucralfate (Carafate) 1 GM tablet TAKE 1 TABLET BY MOUTH FOUR TIMES A DAY sulfaSALAzine (Azulfidine) 500 MG tablet Take 1 (one) tablet by mouth 3 times daily thiamine (Vitamin B1) 100 MG tablet Take 1 tablet by mouth every morning traMADol (ULTRAM) 50 MG tablet Take 1 tablet by mouth 3 times daily With OTC Tylenol traZODone (DESYREL) 50 MG tablet Take 50 mg by mouth at bedtime ALLERGIES: Allergies Allergen Reactions ??? Keflex [Cephalexin] Swelling ??? Pseudoephedrine-Ibuprofen Unknown SOCIAL HISTORY: This patient has a history of smoking. This patient is left handed. Occupation: Retired REVIEW OF SYSTEMS: Negative with the exception of what has been noted in the HPI. PHYSICAL EXAM: This is a healthy appearing female who is alert and oriented and in no distress. Head is atraumatic and normocephalic. Body mass index is 34.75 kg/m??. Height: 157.5 cm (5' 2 ). Patient has good cervical spine ROM and is able to ambulate with a normal gait with the use of a rolling walker. Examination reveals that the bilateral shoulders are symmetric bilaterally. The bilateral shouldersare grossly stable. The bilateral shoulder has anterior and subacromial tenderness. Range of motionis as follows: RANGE OF MOTION: INVOLVED /INVOLVED: Forward Elevation: 150 / 150 Abduction: 150 / 150 External Rotation: 50 / 50 Internal Rotation: L5 / L5 Shoulder strength is 5/5 for FF, 5/5 for SS and 5/5 for ER. Special testing: Discomfort with strength testing Pain with range of motion Positive Viramontes bilaterally Positive empty can bilaterally Negative belly press Negative Villalba's Sane Score (0-100): SANE Score 02/20/2023 Left Shoulder Score 60 Right Shoulder Score 50 ASES Score 02/20/2023 ASES (Left) 48.3 ASES (Right) 41.6 Simple Shoulder Test (SST) Score 02/20/2023 SST Score (Left) 8 SST Score (Right) 6 X-RAY: AP, axillary lateral and outlet radiographs of the left shoulder(s) obtained on 02/20/2023 reveal glenohumeral joint space narrowing with 3mm joint space remaining and and inferior humeral osteophyte that is approximately 4x20 mm in length consistent with osteoarthritis. Acromiohumeral distance is relatively preserved. There is no glenoid retroversion, and no posterior subluxation. Hypertrophic andcystic changes noted at the greater tuberosity. X Ray: Three views of the right shoulder(s) including AP, axillary lateral and outlet radiographs obtained on 02/20/2023 relatively preserved glenohumeral distance with 3-4 mm and preserved acromiohumeral distance with a Type 2 acromion. There is a small inferior glenoid osteophyte consistent with mild glenohumeral degenerative changes. Hypertrophic and cystic changes noted at the greater tuberosity. No bony abnormalities are otherwise noted. IMPRESSION: 1. Left shoulder DJD. 2. Right shoulder mild glenohumeral degenerative changes 3. Bilateral shoulder rotator cuff dysfunction PLAN: I reviewed the findings with the patient and Dr. Dimas. After reviewing the options with the patient, we proceeded with injection of 40 mg triamcinolone and 3 cc local anesthetic under sterile conditions into the bilateral subacromial space and glenohumeral joint from anteriorly. The risks and potential complications of injection have been discussed at length and in detail with the patient.These include bleeding, infection, nerve/tendon/vessel injury, vaso vagal response. Informed consent obtained, the patient wishes to proceed with the procedure as described. The patient tolerated theprocedure well and there were no complications. She also begin physical therapy for the bilateral shoulders and for gait imbalance training. She isalso provided with home exercise program. She may return to clinic as needed. * Margoth Ware, Licensed Plasma Cutting Machine Operator - 02/20/2023 1:27 PM CDT Bilateral shoulders documented in this encounter Procedure Notes * Sabrina Delgadillo RT(R) - 02/20/2023 1:48 PM CDTAssociated Order(s): XR SHOULDER BILAT 2VW AP, axillary lateral and outlet radiographs of the left shoulder(s) obtained on 02/20/2023 reveal glenohumeral joint space narrowing with 3mm joint space remaining and and inferior humeral osteophyte that is approximately 4x20 mm in length consistent with osteoarthritis. Acromiohumeral distance is relatively preserved. There is no glenoid retroversion, and no posterior subluxation. Hypertrophic andcystic changes noted at the greater tuberosity. ?? X Ray: Three views of the right shoulder(s) including AP, axillary lateral and outlet radiographs obtained on 02/20/2023 relatively preserved glenohumeral distance with 3-4 mm and preserved acromiohumeral distance with a Type 2 acromion. There is a small inferior glenoid osteophyte consistent with mild glenohumeral degenerative changes. Hypertrophic and cystic changes noted at the greater tuberosity. No bony abnormalities are otherwise noted. ?? 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 02/21/2023 ??8:39 AM AP, axillary lateral and outlet radiographs of the left shoulder(s) obtained on 02/20/2023 reveal glenohumeral joint space narrowing with 3mm joint space remaining and and inferior humeral osteophyte that is approximately 4x20 mm in length consistent with osteoarthritis. ??Acromiohumeral distance is relatively preserved. ??There is no glenoid retroversion, and no posterior subluxation. ??Hypertrophic and cystic changes noted at the greater tuberosity. ?? X Ray: Three views of the right shoulder(s) including AP, axillary lateral and outlet radiographs obtained on 02/20/2023 relatively preserved glenohumeral distance with 3-4 mm and preserved acromiohumeral distance with a Type 2 acromion. ??There is a small inferior glenoid osteophyte consistent with mild glenohumeral degenerative changes. ??Hypertrophic and cystic changes noted at the greater tuberosity. ??No bony abnormalities are otherwise noted. ?? Nita Dimas MD DIAGNOSTIC IMAGING ORDERABLES documented in this encounter Visit Diagnoses Diagnosis Primary osteoarthritis of left shoulder- Primary Primary localized osteoarthrosis, shoulder region Chronic pain of both shoulders Pain in joint, shoulder region Personal history of fall Bilateral rotator cuff dysfunction Primary osteoarthritis of right shoulder, mild Primary localized osteoarthrosis, shoulder region Chronic pain of both shoulders Pain in joint, shoulder region documented in this encounter Administered Medications Inactive Administered Medications - up to 3 most recent administrations Medication Order MAR Action Action Date Dose Rate Site lidocaine PF (Xylocaine MPF) 1 % injection 6 mL 6 mL, Intra-articular, ONCE, 1 dose, On Sat02/20/23 at 1445 $ Given 02/20/2023 2:44 PM CDT 6 mL Other see comments triamcinolone acetonide (Kenalog-40) injection 80 mg 80 mg, Intra-articular, ONCE, 1 dose, On Sat02/20/23 at 1445, Shake well before using. $ Given 02/20/2023 2:44 PM CDT 80 mg Other see comments documented in this encounter Care Teams Numerical Control Tool Programmer Relationship Specialty Start Date End Date Akin Coyne MD [address] [place], [place] [id number] PCP - General Family Medicine 07/19/15 [place] [address] [address] Physical Medicine and Rehabilitation 01/23/18 documented as of this encounter
--- OUTSIDE RECORDS SUMMARY | 2024-09-22 02:09 | XMS_ITS | Encounter Summary ---
Author Organization [facility] Address [address] [place] [address] Care Team Providers Care Maintenance Engineer Name Role Phone Akin Coyne MD Primary Care Provider [phone] Adan Umana MD Unavailable [phone] Reason for Visit * Reason Onset Date Comments Appointment 12/03/2022 Encounter Details Date Type Department Care Team (Late st Contact Info) Description 12/03/2022 Telephone [facility] Cancer Care [address] [place] [phone] Shahriar Cook MD Appointment Social History Tobacco Use Types Packs/Day Years Used Date Smoking Tobacco: Former Cigarettes Q uit: 11/16/2018 Smokeless Tobacco: Never PHQ-2 Answer Date Recorded PHQ2 TOTAL SCORE 0 12/11/2022 Sex and Gender Information Value Date Recorded Sex Assigned at Not on file Gender Identity Not on file Sexual Orientation Not on file documented as of this encounter Miscellaneous Notes * Telephone Encounter - Blanche Sky RN - 12/03/2022 4:22 PM CDT Pt rescheduled for Prolia on 12/11. * Telephone Encounter - Lola Nelson - 12/03/2022 9:32 AM CDT Blanca's called his was sick all weekend needs to reschedule her prolia shot tomorrow to a different day. You can call Sánchez at [phone] documented in this encounter Plan of Treatment Not on file documented as of this encounter Visit Diagnoses Not on filedocumented in this encounter Care Teams Maintenance Engineer Relationship Specialty Start Date End Date Akin Coyne MD [address] [place] [id number] PCP - General Family Medicine 07/19/15 [place] [id number] [address] Physical Medicine and Rehabilitation 01/23/18 documented as of this encounter
--- OUTSIDE RECORDS SUMMARY | 2024-09-22 02:09 | XMS_ITS | Encounter Summary ---
Author Organization [facility] Address [address] [facility] [place] [address] Care Team Providers Care Pattern Keeper Name Role Phone Akin Coyne MD Primary Care Provider [phone] Adan Umana MD Unavailable [phone] Encounter Details Date Type Department Care Team (Latest Contact Info) Description 02/10/2020 10:50 AM CDT - 02/10/2020 11:59 PM CDT Hospital Encounter [facility] Imaging Services - Radiology [address] [place], [place] [id number] Shahriar Cook MD Discharge Disposition: Home or Self Care Social History Tobacco Use Types Packs/Day Years Used Date Smoking Tobacco: Every Day Smokeless Tobacco: Never Sex and Gender Information Value Date Recorded Sex Assigned at Not on file Gender Identity Not on file Sexual Orientation Not on file documented as of this encounter Medications at Time of Discharge Medication Sig Dispensed Refills Start Date End Date amLODIPine (NORVASC) 10 MG tablet 0.5 (one-half) tablet 3 01/13/2018 Cholecalciferol (VITAMIN D-3 PO) Take 25 mg by mouth once daily DULoxetine (CYMBALTA) 60 MG capsule Take 2 (two) capsules by mouth once daily fluticasone propionate (FLONASE) 50 MCG/ACT nasal spray SHAKE LQ AND U 1 TO 2 SPRAYS IEN QD PRN 0 11/01/2017 gabapentin (NEURONTIN) 300 MG capsule Take 1 (one) capsule by mouth 3 times daily traZODone (DESYREL) 50 MG tablet Take 1 (one) tablet by mouth at bedtime Taking 2 tablets at bedtime AMLODIPINE BESYLATE PO Take 100 mg by mouth once daily 01/30/2022 celecoxib (CELEBREX) 200 MG capsule Take 200 mg by mouth once daily 01/25/2022 clotrimazole (MYCELEX) 10 MG lozenge DIS 1 HERBERT PO FID 0 12/16/2017 01/30/2022 cyclobenzaprine (FLEXERIL) 10 MG tablet TK 1 T PO TID 3 01/13/2018 01/30/2022 fluconazole (DIFLUCAN) 150 MG tablet 0 11/18/2017 01/30/2022 fluocinonide (LIDEX) 0.05 % solution 2 11/30/2017 01/30/2022 folic acid (FOLVITE) 1 MG tablet Take 1 mg by mouth once daily 01/30/2022 HYDROcodone-acetamino phen (NORCO) 5-325 MG tablet Take 1 tablet by mouth every 4 hours as needed 01/26/20 ibuprofen (MOTRIN) 800 MG tablet TK 1 T PO Q 8 H 0 10/09/2017 01/25/2022 lamoTRIgine (LAMICTAL) 150 MG tablet Take 150 mg by mouth 2 times daily 01/30/2022 metFORMIN ER 24hr (GLUCOPHAGE XR) 500 MG tablet TK 1 T PO QD WITH THE GUDELIA MEAL FOR 7 DAYS. INCREASE TO 2 T PO QPM 0 12/18/2017 methotrexate, PF, (OTREXUP) 25 MG/0.4ML auto-injector Inject 25 mg subcutaneously every 7 days 01/25/2022 METOPROLOL SUCCINATE ER PO Take 100 mg by mouth once daily 01/30/2022 metoprolol succinate XL 24hr (TOPROL XL) 50 MG tablet TK 1 T PO QD 2 12/09/2017 01/30/2022 niacin, Immediate Release, 500 MG tablet Take 500 mg by mouth at bedtime 01/30/2022 nystatin (MYCOSTATIN) 759346 UNIT/ML suspension SHAKE LQ AND TK 5 ML PO QID FOR 14 DAYS PRN 0 10/07/2017 01/30/2022 ondansetron, disintegrating, (ZOFRAN ODT) 4 MG tablet Take 4 mg by mouth every 6 hours as needed Allow tablet to dissolve on the tongue 01/30/2022 triamterene-hydroCHLO ROthiazide (DYAZIDE) 37.5-25 MG capsule Take 1 capsule by mouth once daily 01/30/2022 documented as of this encounter Plan of Treatment Not on file documented as of this encounter Procedures Procedure Name Priority Date/Time Associated Diagnosis Comments XR CHEST 2VW Routine 02/10/2020 11:22 AM CDT Fall, initial encounter documented in this encounter Results * XR CHEST 2VW (02/10/2020 11:22 AM CDT) Anatomical Region Laterality Modality Chest Radiographic Kourtney ging 02/10/2020 11:5 9 AM CDT Impressions 02/10/2020 12:00 PM CDT No acute disease in the chest. *[place] Radiologist: Angela Osorio on 02/10/2020 at 12:00 PM Narrative 02/10/2020 12:00 PM CDT PA AND LATERAL CHEST INDICATION: Cough FINDINGS: The lungs are clear. The mediastinal contour and heart size are within normal limits. The pulmonary vascularity is normal. Aorta is tortuous. The osseous structures are unremarkable. There is degenerative change of the thoracic spine. Procedure Note Angela Osorio MD - 02/10/2020 PA AND LATERAL CHEST INDICATION: Cough FINDINGS: The lungs are clear. The mediastinal contour and heart size are within normal limits. The pulmonary vascularity is normal. Aorta is tortuous. The osseous structures are unremarkable. There is degenerative change of the thoracic spine. IMPRESSION No acute disease in the chest. *[place] Radiologist: Angela Osorio on 02/10/2020 at 12:00 PM Shahriar Cook MD DIAGNOSTIC IMAGING O RDERABLES documented in this encounter Visit Diagnoses Diagnosis Fall initial encounter documented in this encounter Care Teams Pattern Keeper Relationship Specialty Start Date End Date Akin Coyne MD [address] [place] [id number] PCP - General Family Medicine 07/19/15 [place] [address] [address] Physical Medicine and Rehabilitation 01/23/18 documented as of this encounter
--- OUTSIDE RECORDS SUMMARY | 2024-09-22 02:09 | XMS_ITS | Encounter Summary ---
Author Organization [facility] Address [address] [facility] [place] [address] Care Team Providers Care Fit Model Name Role Phone Akin Coyne MD Primary Care Provider [phone] Adan Umana MD Unavailable [phone] Reason for Visit * Oncology Prior Authorization (Routine) - Pending Review Specialty Diagnoses / Procedures Referred By Contac t Referred To Contact Diagnoses Osteoporosis, unspecified osteoporosis type, unspecified pathological fracture presence Procedures SD INJECTION DENOSUMAB 1 MG Shahriar Cook MD [facility] [address] [place] [address] [place] [address] Referral ID Status Reason Start Date Expiration Date V isits Requested Visits Authorized [id number] Pending Review 11/23/2022 09/15/2023 2 2 Encounter Details Date Type Department Care Team (Latest Contact Info) Description 12/11/2022 2:00 PM CDT - 12/11/2022 11:59 PM CDT Hospital Encounter Infusion Services at [address] [place] [id number] Shahriar Cook MD Discharge Disposition: Home or [...] Sign Reading Time Taken Comments Blood Pressure 144/105 12/11/2022 3:00 PM CDT Pulse 80 12/11/2022 2:33 PM CDT Temperature 36.9 ??C (98.5 ??F) 12/11/2022 2:33 PM CD T Respiratory Rate 20 12/11/2022 2:33 PM CDT Oxygen Saturation 95% 12/11/2022 2:33 PM CDT Inhaled Oxygen Concentration - - Weight - - Height - - Body Mass Index - - documented in this encounter Medications at Time of Discharge Medication Sig Dispensed Refills Start Date End Date acetaminophen (TYLENOL) 500 MG tablet Take 1 (one) tablet by mouth every 6 hours as needed albuterol HFA (PROVENTIL; VENTOLIN; PROAIR) 108 (90 Base) MCG/ACT inhaler Inhale 2 (two) puffs by mouth every 6 hours as needed 09/22/2021 amLODIPine (NORVASC) 10 MG tablet 0.5 (one-half) tablet 3 01/13/2018 amLODIPine (NORVASC) 5 MG tablet Take 1 (one) tablet by mouth 2 times daily 12/24/2021 ascorbic acid (VITAMIN C) 500 MG tablet Take 500 mg by mouth once daily 01/12/2022 ASPIRIN LOW DOSE 81 MG chew tablet Take 1 (one) tablet by mouth once daily 07/16/2021 azithromycin (ZITHROMAX) 250 MG tablet Take 1 tablet by mouth once daily 09/29/2021 Cholecalciferol (VITAMIN D-3 PO) Take 25 mg [...] (one) capsule by mouth 3 times daily lamoTRIgine (LAMICTAL) 100 MG tablet Take 25 mg by mouth once daily 12/19/2021 LORazepam (ATIVAN) 0.5 MG tablet Take 1 (one) tablet by mouth once daily as needed FOR ANXIETY 01/12/2022 metoprolol succinate XL 24hr (TOPROL XL) 100 MG tablet Take 1 (one) tablet by mouth once daily 12/26/2021 omeprazole (PriLOSEC) 40 MG capsule Take 1 (one) capsule by mouth daily before breakfast pantoprazole EC (PROTONIX) 40 MG tablet Take 40 mg by mouth every morning 12/18/2021 primidone (Mysoline) 50 MG tablet Take 1 (one) tablet by mouth once daily secukinumab (COSENTYX) 150 MG/ML prefilled syringe Inject 300 (three hundred) mg subcutaneously every 14 days sulfaSALAzine (Azulfidine) 500 MG tablet Take 1 (one) tablet by mouth 3 times daily thiamine (Vitamin B1) 100 MG tablet Take 1 tablet by mouth every morning 03/24/2022 traMADol (ULTRAM) 50 MG tablet Take 1 (one) tablet by mouth 3 times daily With OTC Tylenol 01/19/2022 traZODone (DESYREL) 50 MG tablet Take 1 (one) tablet by mouth at bedtime Taking 2 tablets at bedtime folic acid (Folvite) 1 MG tablet Take 1 mg by mouth once daily 04/16/2022 07/10/2023 metFORMIN (GLUCOPHAGE) 500 MG tablet Take 2 tablets by mouth at bedtime 07/10/2023 sucralfate (Carafate) 1 GM tablet TAKE 1 TABLET BY MOUTH FOUR TIMES A DAY 04/17/2022 07/10/2023 documented as of this encounter Progress Notes * Tamiko Da Silva RN - 12/11/2022 3:03 PM CDT Blancakelli Nam 1945 12/11/2022 Patient completed scheduled Prolia at [facility]. Pt tolerated well and left in stable ambulatory condition. Please call with any questions at [phone]. BP (!) 144/105 Pulse 80 Temp 98.5 ??F Resp 20 SpO2 95% Medications given on 12/11/2022 MEDICATIONS FOR CURRENT ENCOUNTER: ?? SCHEDULED MEDICATIONS: ?? [COMPLETED] denosumab (Prolia) SC injection SOSY 60 mg, Subcutaneous, Once ?? CONTINUOUS MEDICATIONS: ?? No current facility-administered medications for this encounter. ?? PRN MEDICATIONS: ?? No current facility-administered medications for this encounter. documented in this encounter Plan of Treatment Not on file documented as of this encounter Visit Diagnoses Diagnosis Osteoporosis, unspecified osteoporosis type, unspecified pathological fracture presence- Primary documented in this encounter Administered Medications Inactive Administered Medications - up to 3 most recent administrations Medication Order MAR Action Action Date Dose Rate Site denosumab (Prolia) SC injection SOSY 60 mg 60 mg, Subcutaneous, ONCE, 1 dose, On Tu12/11/22 at 1445, Repeat in 6 months for a max of 2 doses in one year each 6 months apart. $ Given 12/11/2022 3:00 PM CDT 60 mg Abdominal Tissue documented in this encounter Care Teams Fit Model Relationship Specialty Start Date End Date Akin Coyne MD [address] [place] [id number] PCP - General Family Medicine 07/19/15 [place] [id number] [address] Physical Medicine and Rehabilitation 01/23/18 documented as of this encounter
--- OUTSIDE RECORDS SUMMARY | 2024-09-22 02:09 | XMS_ITS | Encounter Summary ---
Author Organization [facility] Address [address] [facility] [place] [address] Care Team Providers Care Asset Protection Manager Name Role Phone Akin Coyne MD Primary Care Provider [phone] Adan Umana MD Unavailable [phone] Reason for Referral * OP/Amb RFL Auth (Routine) - Closed Specialty Diagnoses / Procedures Referred By Contac t Referred To Contact Diagnoses Primary osteoarthritis of left knee Procedures DC DRAIN/INJECT LARGE JOINT/BURSA Destiny Lazcano PA-C [address] [address] [place] [phone] Referral ID Status Reason Start Date Expiration Date Visits Re quested Visits Authorized [id number] Closed 01/30/2022 01/30/2023 1 1 Reason for Visit * Reason Comments Establish Care Left Knee Pain Encounter Details Date Type Department Care Team (Latest Contact Info) Description 01/30/2022 12:10 PM CDT Office Visit [facility] Orthopedics [id number] [place] [address], [address] [phone] [place] [address] [address] [place] [address] Primary osteoarthritis of left knee (Primary Dx); Left knee pain, unspecified chronicity Social History Tobacco Use Types Packs/Day Years Used Date Smoking Tobacco: Former Cigarettes Q uit: 11/16/2018 Smokeless Tobacco: Never Sex and Gender Information [...] - - Weight 86.2 kg (190 lb) 01/30/2022 11:56 AM CDT Height 157.5 cm (5' 2 ) 01/30/2022 11:56 AM CDT Body Mass Index 34.75 01/30/2022 11:56 AM CDT documented in this encounter Progress Notes * Destiny Lazcano PA-C - 01/30/2022 12:30 PM CDT Subjective: Blanca Nam is a 76 year old female who presents with left knee pain. She has had pain in her knee for several months. She states she has arthritis all over her body. She sees Dr. Cook for this. She can walk using the assistance of a walker, but also uses an electric wheelchair at times. She has not had injections in her left knee. She was taken NSAIDs, but now avoids these due to a stomach ulcer. Current Outpatient Medications Medication Sig Dispense Refill ??? acetaminophen (TYLENOL) 500 MG tablet Take 500 mg by mouth every 6 hours as needed ??? albuterol HFA (PROVENTIL; VENTOLIN; PROAIR) 108 (90 Base) MCG/ACT inhaler Inhale 2 puffs by mouth every 6 hours as needed ??? amLODIPine (NORVASC) 10 MG tablet TK 1 T PO QD 3 ??? amLODIPine (NORVASC) 5 MG tablet Take 5 mg by mouth once daily ??? ascorbic acid (VITAMIN C) 500 MG tablet Take 500 mg by mouth once daily ??? ASPIRIN LOW DOSE 81 MG chew tablet Take 81 mg by mouth once daily ??? azithromycin (ZITHROMAX) 250 MG tablet Take 1 tablet by mouth once daily ??? Cholecalciferol (VITAMIN D-3 PO) Take 25 mg by mouth once daily ??? DULoxetine (CYMBALTA) 60 MG capsule Take 60 mg by mouth once daily ??? fluticasone propionate (FLONASE) 50 MCG/ACT nasal spray SHAKE LQ AND U 1 TO 2 SPRAYS IEN QD PRN0 ??? gabapentin (NEURONTIN) 300 MG capsule Take 300 mg by mouth 3 times daily Two tablets three times per day ??? lamoTRIgine (LAMICTAL) 100 MG tablet Take 100 mg by mouth 2 times daily ??? LORazepam (ATIVAN) 0.5 MG tablet Take 0.5 mg by mouth once daily as needed FOR ANXIETY ??? metFORMIN (GLUCOPHAGE) 500 MG tablet Take 2 tablets by mouth at bedtime ??? metoprolol succinate XL 24hr (TOPROL XL) 100 MG tablet Take 100 mg by mouth once daily ??? pantoprazole EC (PROTONIX) 40 MG tablet Take 40 mg by mouth every morning ??? secukinumab (COSENTYX) 150 MG/ML prefilled syringe Inject 300 mg subcutaneously every 28 days ??? traMADol (ULTRAM) 50 MG tablet Take 1 tablet by mouth 3 times daily With OTC Tylenol ??? traZODone (DESYREL) 50 MG tablet Take 50 mg by mouth at bedtime No current facility-administered medications for this visit. Allergies Allergen Reactions ??? Keflex [Cephalexin] Swelling ??? Pseudoephedrine-Ibuprofen Unknown Social history: reports that she quit smoking about 3 years ago. She has never used smokeless tobacco. has no history on file for alcohol use. The family history is not pertinent to the HPI. Objective: General inspection: she is a pleasant 5'2 , 190 lb female with normal mood and affect. She is seated in a wheelchair. MS: she has pain-free log roll. SLR is negative, bilaterally. Right knee: The right knee is non-tender to palpation with no effusion and normal alignment. Range of motion is 0 to 130. Left knee: The left knee is tender to palpation along the medial joint line and with varus alignment and instability. Range of motion is 0 to 125. Skin and Extremities: The skin of the lower extremities is without rashes, lesions, or ulcerations.She has no edema in lower extremities. Tibialis posterior pulses are palpable. There is no evidenceof chronic venous stasis and she is neurovascularly intact distally,bilaterally. RADIOGRAPHS: Weightbearing x-rays show severe degenerative changes in the medial joint line of the left knee. Impression: DJD left knee, symptomatic Plan: I educated the patient on osteoarthritis and we discussed treatment options. During this visit, I suggested conservative management with a corticosteroid injection. She was counseled on possible treatment options, benefits, and risks of each treatment were discussed. Patient elected for injection in the office today. I injected patient left knee, using sterile technique. The patient was prepped with betadine and injected with 3 mls of lidocaine and 2 ml of kenalog. Injection was tolerated well by the patient. Patient was educated that the next available steroid injection is 3-4 months from today. She is to call the office with any concerns or questions and is to follow up as needed. She demonstrated understanding of this plan and has no other questions or concerns at this time. Dr. Brandon agrees with this examination, evaluation, and treatment plan. Orders Placed This Encounter ??? XR KNEE LEFT 3VW ??? DC DRAIN/INJECT LARGE JOINT/BURSA ??? triamcinolone acetonide (Kenalog-40) injection 80 mg ??? lidocaine PF (Xylocaine MPF) 1 % injection 3 mL Destiny Lazcano PA-C * Jaleesa Dye MA - 01/30/2022 11:53 AM CDT Pt of Dr. Chavez here for evaluation of left knee pain documented in this encounter Procedure Notes * James Laurent - 01/30/2022 11:51 AM CDTAssociated Order(s): XR KNEE LEFT 3VW See progress notes for patient results. documented in this encounter Plan of Treatment Not on file documented as of this encounter Procedures Procedure Name Priority Date/Time Associated Diagnosis Comments XR KNEE LEFT 3VW Routine 01/30/2022 11:5 2 AM CDT Left knee pain, unspecified chronicity documented in this encounter Results * XR KNEE LEFT 3VW (01/30/2022 11:52 AM CDT) Anatomical Region Laterality Modality Lower Extremity Computed Radiogr aphy Narrative 01/30/2022 11:51 AM CDT James Laurent Jenise ? 01/31/2022 ??3:58 PM See progress notes for patient results. Destiny Lazcano PA-C DIAGNOSTIC IM AGING ORDERABLES documented in this encounter Visit Diagnoses Diagnosis Primary osteoarthritis of left knee- Primary Primary localized osteoarthrosis, lower leg Left knee pain, unspecified chronicity Left knee pain, unspecified chronicity documented in this encounter Administered Medications Inactive Administered Medications - up to 3 most recent administrations Medication Order MAR Action Action Date Dose Rate Site lidocaine PF (Xylocaine MPF) 1 % injection 3 mL 3 mL, Intra-articular, ONCE, 1 dose, On Sat01/30/22 at 1300 $ Given 01/30/2022 12:50 PM CDT 3 mL Left Knee triamcinolone acetonide (Kenalog-40) injection 80 mg 80 mg, Intra-articular, ONCE, 1 dose, On Sat01/30/22 at 1300, Shake well before using. $ Given 01/30/2022 12:51 PM CDT 80 mg Left Knee documented in this encounter Care Teams Asset Protection Manager Relationship Specialty Start Date End Date Akin Coyne MD [address] [place] [phone] PCP - General Family Medicine 07/19/15 [place] [address] [address] [place] [id number] Physical Medicine and Rehabilitation 01/23/18 documented as of this encounter
--- OUTSIDE RECORDS SUMMARY | 2024-09-22 02:09 | XMS_ITS | Encounter Summary ---
Author Organization [facility] Address [address] [place] [address] Care Team Providers Care Auto Damage Trainee Name Role Phone Akin Coyne MD Primary Care Provider [phone] Adan Umana MD Unavailable [phone] Reason for Referral * OP/Amb RFL Auth (Routine) - Open Specialty Diagnoses / Procedures Referred By Contac t Referred To Contact Diagnoses Primary osteoarthritis of left knee Procedures [place] DRAIN/INJECT LARGE JOINT/BURSA Trinity Chao PA-C [address] [address] [place] [address] Referral ID Status Reason Start Date Expiration Date Visits Re quested Visits Authorized [id number] Open 11/26/2023 11/25/2024 1 1 * OP/Amb RFL Auth (Routine) - Open Specialty Diagnoses / Procedures Referred By Contac t Referred To Contact Diagnoses 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 Procedures NC DRAIN/INJECT LARGE JOINT/BURSA Trinity Chao PA-C [address] [employer] [address] [place] [address] Referral ID Status Reason Start Date Expiration Date Visits Re quested Visits Authorized [id number] Open 11/26/2023 11/25/2024 1 1 Reason for Visit * Reason Comments Follow-up Bilateral knees, lef t shoulder injections Encounter Details Date Type Department Care Team (Latest Contact Info) Description 11/26/2023 1:00 PM CDT Office Visit [facility] [address] [facility], [address] [place] [phone] Trinity Chao PA-C [id number] [facility] [address] [place] [address] Chronic pain of both shoulders (Primary Dx); Primary osteoarthritis of left knee; Primary osteoarthritis of left shoulder; Primary osteoarthritis of right shoulder Social History Tobacco Use Types Packs/Day Years Used Date Smoking Tobacco: Former Cigarettes Q uit: 11/16/2018 Smokeless Tobacco: Never PHQ-2 Answer Date Recorded Patient Health Questionnaire-2 [...] Mass Index 34.75 11/26/2023 12:58 PM CDT documented in this encounter Progress Notes * Trinity Chao PA-C - 11/26/2023 1:04 PM CDT CHIEF COMPLAINT: 1. Bilateral shoulder pain. 2. Left knee pain HISTORY OF PRESENT ILLNESS: Blanca Nam is a 78 year old female who is here for evaluation of thebilateral shoulder(s). This patient has had multiple years of symtoms. She denies any specific injury or inciting event that caused the bilateral shoulder pain. However she does note she does have repetitive falls in often braces herself with her bilateral shoulders. She does use a rolling walker or wheelchair. She reports pain with above shoulder level activity, deltoid pain, night pain. She hasuse tramadol and Tylenol. She presents today further evaluation management for bilateral shoulder pain. She also has left knee DJD. Of note, she does report a history of rheumatoid arthritis, psoriatic arthritis, and ankylosing spondylitis. Her clinical services consultant is Dr. Cook. PHYSICAL EXAM: This is a healthy appearing female who is alert and oriented and in no distress. Head is atraumatic and normocephalic. Body mass index is 34.75 kg/m??. Height: 157.5 cm (5' 2 ). Patient is in a wheelchair today. Examination reveals that the bilateral shoulders are [...] empty can bilaterally Negative belly press Negative Scioto's Examination of the left knee reveals that there is mild effusion. Range of motion is 0 to 110 degrees. There is medial joint line tenderness. The knee is stable to varus and valgus stress. There is postive patellar crepitation and no pain with grind. Win maneuver is negative. Kurtis maneuver is negative. There is 5/5 motor strength. Sane Score (0-100): 02/20/2023 2:00 PM SANE Score Left Shoulder Score 60 Right Shoulder Score 50 02/20/2023 2:00 PM ASES Score ASES (Left) 48.3 ASES (Right) 41.6 02/20/2023 2:00 PM Simple Shoulder Test (SST) Score SST Score (Left) 8 SST Score (Right) [...] andcystic changes noted at the greater tuberosity. Xray: AP weightbearing, patellofemoral, and lateral views of the left knees obtained on 05/22/2023 reveal medial compartment narrowing consistent with DJD X Ray: Three views of the right [...] 1. Left shoulder DJD. 2. Right shoulder DJD 3. Left knee DJD PLAN: I reviewed the findings with the patient. After reviewing the options with the patient, we proceeded with injection of 40 mg triamcinolone and 3 cc local anesthetic under sterile conditions into the bilateral subacromial space and glenohumeral joint from anteriorly. We then proceeded with injection of 40 mg triamcinolone and 3 cc local anesthetic under sterile conditions into the left knee joint from anterior laterally. The risks and potential complications of injection have been discussed at length and in detail withthe patient. These include bleeding, infection, nerve/tendon/vessel injury, vaso vagal response. Informed consent obtained, the patient wishes to proceed with the procedure as described. The patient tolerated the procedure well and there were no complications. The following Time-Out protocol was followed: ? Patient name and were confirmed ? Procedure was confirmed with patient ? Informed consent was obtained ? The appropriate site was identified and confirmed ? Medication order/Injectable was verified Using sterile technique documented in this encounter Plan of Treatment Not on file documented as of this encounter Visit Diagnoses Diagnosis Chronic pain of both shoulders- Primary Pain in joint, shoulder region Primary osteoarthritis of left knee Primary localized osteoarthrosis, lower leg Primary osteoarthritis of left shoulder Primary localized osteoarthrosis, shoulder region Primary osteoarthritis of right shoulder Primary localized osteoarthrosis, shoulder region documented in this encounter Administered Medications Inactive Administered Medications - up to 3 most recent administrations Medication Order MAR Action Action Date Dose Rate Site lidocaine PF (Xylocaine MPF) 1 % injection 3 mL 3 mL, Intra-articular, ONCE, 1 dose, On 11/26/23 at 1345 $ Given 11/26/2023 1:32 PM CDT 3 mL Left Knee lidocaine PF (Xylocaine MPF) 1 % injection 6 mL 6 mL, Intra-articular, ONCE, 1 dose, On Sat11/26/23 at 1345 $ Given 11/26/2023 1:34 PM CDT 6 mL Other see comments triamcinolone acetonide (Kenalog-40) injection 40 mg 40 mg, Intra-articular, ONCE, 1 dose, On Sat11/26/23 at 1345, Shake well before using. $ Given 11/26/2023 1:33 PM CDT 40 mg Left Knee triamcinolone acetonide (Kenalog-40) injection 80 mg 80 mg, Intra-articular, ONCE, 1 dose, On Sat11/26/23 at 1345, Shake well before using. $ Given 11/26/2023 1:34 PM CDT 80 mg Other see comments documented in this encounter Care Teams Auto Damage Trainee Relationship Specialty Start Date End Date Akin Coyne MD [address] [place] [phone] PCP - General Family Medicine 07/19/15 [place] [address] [address] Physical Medicine and Rehabilitation 01/23/18 documented as of this encounter
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
--- OUTSIDE RECORDS SUMMARY | 2024-09-22 02:09 | XMS_ITS | Encounter Summary ---
Author Organization [facility] Address [address] [place] [address] Care Team Providers Care Packing Room Inspector Name Role Phone Akin Coyne MD Primary Care Provider [phone] Reason for Visit * Oncology Prior Authorization - Closed Specialty Diagnoses / Procedures Referred By Contac t Referred To Contact Infusion Therapy Nurse Diagnoses Other specified rheumatoid arthritis, multiple sites (HCC) Procedures [place] INFLIXIMAB INJECTION Shahriar Cook MD [facility] [id number] [place] [phone] Referral ID Status Reason Start Date Expiration Date Visits Re quested Visits Authorized [id number] Closed 09/20/2015 09/15/2016 1 12 Encounter Details Date Type Department Care Team (Latest Contact Info) Description 11/08/2015 8:47 AM INSURANCE RATER - 11/08/2015 11:59 PM INSURANCE RATER Hospital Encounter Infusion Services at [facility] [address] [address] [facility] [address] [place], [place] [id number] Shahriar Cook MD Discharge Disposition: Home or Self Care Social History Tobacco Use Types Packs/Day Years Used Date Smoking Tobacco: Never Assessed Sex and Gender Information Value Date Recorded Sex Assigned at Not on file Gender Identity Not on file Sexual Orientation Not on file documented as of this encounter Last Filed Vital Signs Vital Sign Reading Time Taken Comments Blood Pressure 130/81 11/08/2015 8:53 AM INSURANCE RATER Pulse 71 11/08/2015 8:53 AM INSURANCE RATER Temperature 36.2 ??C (97.1 ??F) 11/08/2015 8:53 AM CS T Respiratory Rate 18 11/08/2015 8:53 AM INSURANCE RATER Oxygen Saturation - - Inhaled Oxygen Concentration - - Weight 78.5 kg (173 lb) 11/08/2015 8:53 AM INSURANCE RATER Height - - Body Mass Index 31.64 09/27/2015 9:07 AM INSURANCE RATER documented in this encounter Progress Notes * Lamar Orozco RN - 11/08/2015 9:04 AM CST INFUSIONS Blanca Nam [id number] 11/08/2015 Pt denies symptoms of infection or antibiotic use, no open wounds, or recent surgery, or plans for surgery in the next couple of weeks. Pt is aware that we use the 0-10 pain scale to assess discomfort. Upon registering pt signs consent for treatment for this infusion. BP 130/81 mmHg Pulse 71 Temp(Src) 97.1 ??F Resp 18 Wt 78.472 kg (173 lb) @ MEDICATIONS FOR CURRENT ENCOUNTER: ?? SCHEDULED MEDICATIONS: ?? CONTINUOUS MEDICATIONS: ?? inFLIXimab (REMICADE) 300 mg in 0.9% NaCl infusion, Intravenous, Continuous ?? Number of 24 gauge 3/4 inch placed in Right antecubital ?? 1 attempt(s). IMELDA- 07/2015 ( Dr Cook @ [facility]) Next OV- 11/08/2015 ( today @ [facility]) Last routine labs drawn at [facility]. This is patients 3rd Remicade infusion. Tolerated well and monitored throughout infusion. Patient monitored throughout procedure. Tolerated well? Yes Next treatment? 8 weeks Lamar Orozco RN RANCE RATER documented in this encounter Plan of Treatment [...] at 10-250 mL/hr, Intravenous, CONTINUOUS, Starting on Sat11/08/15 at 0900, Until Sat11/08/15 at 1059, Refrigerate. Use with in-line filter. $ New Bag/Syringe 11/08/2015 9:30 AM INSURANCE RATER 300 mg 125 mL/hr documented in this encounter Care Teams Packing Room Inspector Relationship Specialty Start Date End Date Akin Coyne MD [address] [place] [address] PCP - General Family Medicine 07/19/15 documented as of this encounter
--- OUTSIDE RECORDS SUMMARY | 2024-09-22 02:09 | XMS_ITS | Encounter Summary ---
Author Organization [facility] Address [address] [place] [address] Care Team Providers Care Baller Tender Name Role Phone Akin Coyne MD Primary Care Provider [phone] Reason for Visit * Reason Onset Date Comments Scheduling 09/22/2015 Encounter Details Date Type Department Care Team (Late st Contact Info) Description 09/22/2015 Telephone Infusion Services at [address] [address] Shahriar Cook MD Scheduling Social History Tobacco Use Types Packs/Day Years Used Date Smoking Tobacco: Never Assessed Sex and Gender Information Value Date Recorded Sex Assigned at Not on file Gender Identity Not on file Sexual Orientation Not on file documented as of this encounter Miscellaneous Notes * Telephone Encounter - Lamar Orozco, RN - 09/22/2015 1:04 PM CST LMOR: regarding scheduling Patients 1st Remicade infusion. Tentatively scheduled patient for Saturday10/04/14 @ 9:00 am, pending call back from patient and benefits verification from Lidia. H MOLDER documented in this encounter Plan of Treatment Not on file documented as of this encounter Visit Diagnoses Not on filedocumented in this encounter Care Teams Baller Tender Relationship Specialty Start Date End Date Akin Coyne MD [address] [place] [id number] PCP - General Family Medicine 07/19/15 documented as of this encounter
--- OUTSIDE RECORDS SUMMARY | 2024-09-22 02:09 | XMS_ITS | Encounter Summary ---
Author Organization [facility] Address [address] [place] [address] Care Team Providers Care Telephone Sales Representative Name Role Phone Akin Coyne MD Primary Care Provider [phone] Reason for Visit * Oncology Prior Authorization - Closed Specialty Diagnoses / Procedures Referred By Contac t Referred To Contact Infusion Therapy Nurse Diagnoses Other specified rheumatoid arthritis, multiple sites (HCC) Procedures [place] INFLIXIMAB INJECTION Shahriar Cook MD [facility] [id number] [place] [phone] Referral ID Status Reason Start Date Expiration Date Visits Re quested Visits Authorized [id number] Closed 09/20/2015 09/15/2016 1 12 Encounter Details Date Type Department Care Team (Latest Contact Info) Description 09/27/2015 9:00 AM TOWN CLERK - 09/27/2015 11:59 PM TOWN CLERK Hospital Encounter Infusion Services at [facility] [address] [address] [facility] [address] [place] [address] Shahriar Cook MD Discharge Disposition: Home or Self Care Social History Tobacco Use Types Packs/Day Years Used Date Smoking Tobacco: Never Assessed Sex and Gender Information Value Date Recorded Sex Assigned at Not on file Gender Identity Not on file Sexual Orientation Not on file documented as of this encounter Last Filed Vital Signs Vital Sign Reading Time Taken Comments Blood Pressure 135/79 09/27/2015 12:07 PM TOWN CLERK Pulse 71 09/27/2015 12:07 PM TOWN CLERK Temperature 36.3 ??C (97.3 ??F) 09/27/2015 9:07 AM CS T Respiratory Rate 18 09/27/2015 12:07 PM TOWN CLERK Oxygen Saturation - - Inhaled Oxygen Concentration - - Weight 79.4 kg (175 lb) 09/27/2015 9:07 AM TOWN CLERK Height 157.5 cm (5' 2 ) 09/27/2015 9:07 AM TOWN CLERK Body Mass Index 32.01 09/27/2015 9:07 AM TOWN CLERK documented in this encounter Progress Notes * Lamar Orozco, RN - 09/27/2015 9:53 AM CST INFUSIONS Blanca Nam [id number] 09/27/2015 BP 154/88 mmHg Pulse 75 Temp(Src) 97.3 ??F Resp 18 Wt 79.379 kg (175 lb) BMI 32.00 kg/m2 @ MEDICATIONS FOR CURRENT ENCOUNTER: ?? SCHEDULED MEDICATIONS: ?? CONTINUOUS MEDICATIONS: ?? inFLIXimab (REMICADE) 300 mg in 0.9% NaCl infusion, Intravenous, Continuous ?? Number of 24 gauge 1 inch placed in Right antecubital ?? 1 attempt(s). 1st Remicade infusion, patient tolerated well and Patient educated regarding Remicade infusion andpossible side effects. Last OV:July 2015 @ [facility] Next Office Visit:11/08/2015 Routine labs done at [facility]. Patient monitored throughout procedure. Tolerated well? Yes Next treatment? 0, 2,4,8 weeks Lamar Orozco RN CLERK documented in this encounter Plan of Treatment [...] at 10-250 mL/hr, Intravenous, CONTINUOUS, Starting on Sat09/27/15 at 0915, Until Sat09/27/15 at 1114, Refrigerate. Use with in-line filter. Start infusion rate at 10 ml/hr and slowly increase infusion rate by doubling rate every 15 minutes. After 1 hour, increase rate to 150 ml/hr for 30 minutes, then increase rate to 250 ml/hr until infusion complete, unless physician orders a different rate. Refrigerate. Use with in-line filter. $ New Bag/Syringe 09/27/2015 9:30 AM TOWN CLERK 300 mg 125 mL/hr documented in this encounter Care Teams Telephone Sales Representative Relationship Specialty Start Date End Date Akin Coyne MD [address] [place] [address] PCP - General Family Medicine 07/19/15 documented as of this encounter
--- OUTSIDE RECORDS SUMMARY | 2024-09-22 02:09 | XMS_ITS | Clinical Summary ---
Author Organization [facility] Address [address] [place] [address] Phone Care Team Providers Care Reservations Clerk Name Role Phone Gagan Coyne MD Primary Care Provider [phone] Allergies Active Allergy Reactions Criticality Noted Date Comments Cephalexin Swelling High 01/16/2020 Tongue and throat swell Medications celecoxib (CELEBREX) 200 MG Capsule 0 Active amLODIPine (NORVASC) 5 MG Tablet 0 Active LORazepam (ATIVAN) 0.5 MG Tablet 0 Active metFORMIN (GLUCOPHAGE-XR) 500 MG TABLET SR 24 HR 0 Active metoprolol Succinate (TOPROL-XL) 100 MG TABLET SR 24 HR 0 Active traZODone (DESYREL) 50 MG Tablet 0 Active gabapentin (NEURONTIN) 300 MG Capsule 0 Active folic acid (FOLVITE) 1 MG Tablet Take 1 mg by mouth daily. Active DULoxetine (CYMBALTA) [address] Zhane 0 Active lamoTRIgine (LAMICTAL) 100 MG Tablet 0 Active Methotrexate Sodium (METHOTREXATE, PF,) 50 MG/2ML Solution 0 Active Abatacept (ORENCIA IV) by Intravenous route. Active amphetamine-dex troamphetamine (ADDERALL) 5 MG Tablet 0 Active albuterol 108 (90 Base) MCG/ACT Aerosol SolutionIndicat ions:Cough,SOB (shortness of breath) take 2 Puffs by inhalation every 4 hours as needed for Wheezing or Cough. 8.5 g 0 Active Active Problems Problem Noted Date Diagnosed Date Bipolar disorder with depression 03/25/2023 Social History Tobacco Use Types Packs/Day Years [...] on file Sexual Orientation Not on file Plan of Treatment Health Maintenance Due Date Last Done Comments DEXA Bone Density 1945 Hepatitis C Virus (HCV) Screening 1945 TdaP Immunization 1945 Zoster Immunization (1 of 2) 1964 Pneumococcal Immunization (50+ years) (1 of 1 - PCV) 11/16/1995 Respiratory Syncytial Virus (RSV) Immunization (Adult) (1 - 1-dose 75+ series) 2020 SARS-COV-2 Immunization (3 - Moderna risk series) 06/21/2021 05/24/2021, 04/26/2021 Influenza Immunization (#1) 05/17/202407/17, 07/25/2021, 09/21/2020, Additional history exists Hepatitis B Immunization Aged Out No longer eligible based on patient's age to complete this topic Meningococcal Immunization (ACWY) Aged Out No longer eligible based on patient's age to complete this topic Rotavirus Immunization Aged Out No lo nger eligible based on patient's age to complete this topic Goals Goal Patient Goal Type Associated Problems Recent Progress Patient-Stated? Author Behavioral Health Behavioral Health Yes Carmina Gao, ANIMAL LABORATORY TECHNICIAN Note: I want to be happier, want to live more, don't want my depression to wor[place] [address] MEDICARE [facility] Care Teams Reservations Clerk Relationship Specialty Start Date End Date Gagan Coyne MD [address] [place] [address] PCP - General Family Medicine 01/16/20
--- OUTSIDE RECORDS SUMMARY | 2024-09-22 02:09 | XMS_ITS | Encounter Summary ---
Author Organization [facility] Address [address] [facility] [place] [address] Care Team Providers Care Multi Punch Operator Name Role Phone Akin Coyne MD Primary Care Provider [phone] Adan Umana MD Unavailable [phone] Reason for Visit * Reason Onset Date Comments Surgery Cancellation 08/21/2022 Encounter Details Date Type Department Care Team (Late st Contact Info) Description 08/21/2022 Telephone [facility] Orthopedics [id number] [place] [address] [place] [address] [address] Surgery Cancellation Social History Tobacco Use Types Packs/Day Years Used Date Smoking Tobacco: Former Cigarettes Q uit: 11/16/2018 Smokeless Tobacco: Never Sex and Gender Information Value Date Recorded Sex Assigned at Not on file Gender Identity Not on file Sexual Orientation Not on file documented as of this encounter Miscellaneous Notes * Telephone Encounter - Raquel Mera - 08/21/2022 10:05 AM CST I will cancel her surgery at this time ANIC/WELDER * Telephone Encounter - Hanny Contreras - 08/21/2022 9:10 AM CST Who is calling? Misha, What is the reason for call? The patient is needing to cancel surgery for now and will call back when ready to get back on the schedule. The patient is having some problems right now and is not in shape to have surgery. Expected Response from the Clinic? He can be reached at [phone]. ANIC/WELDER documented in this encounter Plan of Treatment Not on file documented as of this encounter Visit Diagnoses Not on filedocumented in this encounter Care Teams Multi Punch Operator Relationship Specialty Start Date End Date Akin Coyne MD [address] [place] [address] PCP - General Family Medicine 07/19/15 [place] [address] [address] Physical Medicine and Rehabilitation 01/23/18 documented as of this encounter
--- OUTSIDE RECORDS SUMMARY | 2024-09-22 02:09 | XMS_ITS | Encounter Summary ---
Author Organization [facility] Address [address] [place] [address] Care Team Providers Care Central Supply Manager Name Role Phone Akin Coyne MD Primary Care Provider [phone] Reason for Visit * Reason Onset Date Comments Scheduling 02/29/2016 Encounter Details Date Type Department Care Team (Late st Contact Info) Description 02/29/2016 Telephone Infusion Services at [address] [address] Shahriar Cook MD Scheduling Social History Tobacco Use Types Packs/Day Years Used Date Smoking Tobacco: Never Assessed Sex and Gender Information Value Date Recorded Sex Assigned at Not on file Gender Identity Not on file Sexual Orientation Not on file documented as of this encounter Miscellaneous Notes * Telephone Encounter - Hanny Rodriguez RN - 02/29/2016 1:01 PM CDT Patient expressed she will have future infusions at the [facility] documented in this encounter Plan of Treatment Not on file documented as of this encounter Visit Diagnoses Not on filedocumented in this encounter Care Teams Central Supply Manager Relationship Specialty Start Date End Date Akin Coyne MD [address] [place] [address] PCP - General Family Medicine 07/19/15 documented as of this encounter
--- OUTSIDE RECORDS SUMMARY | 2024-09-22 02:09 | XMS_ITS | Encounter Summary ---
Author Organization [facility] Address [address] [facility] [place] [address] Care Team Providers Care Senior Analyst Programmer Name Role Phone Akin Coyne MD Primary Care Provider [phone] Adan Umana MD Unavailable [phone] Encounter Details Date Type Department Care Team (Late st Contact Info) Description 01/16/2020 Lab Requisition [facility] MICROBIOLOGY [address] [place] [address] Dg Soares MD Social History Tobacco Use Types Packs/Day Years Used Date Smoking Tobacco: Every Day Smokeless Tobacco: Never Sex and Gender Information Value Date Recorded Sex Assigned at Not on file Gender Identity Not on file Sexual Orientation Not on file documented as of this encounter Plan of Treatment Not on file documented as of this encounter Procedures Procedure Name Priority Date/Time Associated Diagnosis Comments SARS-COV-2 (COVID-19) IN HOUSE Routine 01/16/2020 11:20 AM CDT documented in this encounter Results * SARS-COV-2 (COVID-19) IN HOUSE (01/16/2020 11:20 AM CDT) COVID-19 PCR Not detected Not detected, Invalid 01/17/2020 1:49 PM CDT [facility] Microbiology SPECIMEN FROM NASOPHARYNGEAL STRUCTURE / Unknown Collection / Unknown 01/16/2020 11:20 AM CDT 01/16/2020 8:06 PM CDT Narrative [facility] - 01/17/2020 1:49 PM CDT This Real Time RT-PCR assay was developed and its performance characteristics determined by [facility]. This test has been authorized by the Food and Drug administration (FDA)under an Emergency Use Authorization (EUA). This test has been validated in accordance with the FDA's guidance document Policy for Diagnostic Testing in Laboratories Certified to perform High Complexity Testing under CLIA prior to Emergency Use Authorization for Coronavirus Disease-2019 during the Public Health Emergency issued on November 14, 2019. FDA independent review of this validation is pending. This test is only authorized for the duration of time the declaration that circumstances exist justifying the authorization of emergency use of in vitro diagnostic tests for detection of SARS-CoV-2 virus and/or diagnosis of COVID-19 infection under section 564(b)(1) of the Act, 21 U.S.C 360bbb-3 (b)(1), unless the authorization is terminated or revoked sooner. Dg Soares MD LAB - MICROBIOLOGY ORDERABLES [facility] [address] [place], [place] [address] [phone] documented in this encounter Visit Diagnoses Not on filedocumented in this encounter Care Teams Senior Analyst Programmer Relationship Specialty Start Date End Date Akin Coyne MD [address] [place] [address] PCP - General Family Medicine 07/19/15 [place] [address] [address] Physical Medicine and Rehabilitation 01/23/18 documented as of this encounter
--- OUTSIDE RECORDS SUMMARY | 2024-09-22 02:09 | XMS_ITS | Encounter Summary ---
Author Organization [facility] Address [address] [place] [address] Care Team Providers Care Lean Coach Name Role Phone Akin Coyne MD Primary Care Provider [phone] Adan Umana MD Unavailable [phone] Encounter Details Date Type Department Care Team (Late st Contact Info) Description 01/30/2022 11:50 AM CDT Ancillary Procedure [facility] Orthopedics - Radiology [id number] [place] [address] Destiny Lazcano PA-C [address] [facility] [address] [place] [address] Left knee pain, unspecified chronicity Social History [...] Narrative 01/30/2022 11:51 AM CDT James Laurent ? 01/31/2022 ??3:58 PM See progress notes for patient results. Destiny Lazcano PA-C DIAGNOSTIC IM AGING ORDERABLES documented in this encounter Visit Diagnoses Diagnosis Left knee pain, unspecified chronicity documented in this encounter Care Teams Lean Coach Relationship Specialty Start Date End Date Akin Coyne MD [address] [place] [address] PCP - General Family Medicine 07/19/15 [place] [address] [address] Physical Medicine and Rehabilitation 01/23/18 documented as of this encounter
--- OUTSIDE RECORDS SUMMARY | 2024-09-22 02:09 | XMS_ITS | Encounter Summary ---
Author Organization [facility] Address [address] [facility] [place] [address] Care Team Providers Care Real Estate Transaction Coordinator Name Role Phone Akin Coyne MD Primary Care Provider [phone] Adan Umana MD Unavailable [phone] Reason for Visit * Reason Onset Date Comments Pain Knee 04/25/2022 Encounter Details Date Type Department Care Team (Late st Contact Info) Description 04/25/2022 Telephone [facility] Orthopedics [address] [address] [place] [address] [address] Pain Knee Social History Tobacco Use Types Packs/Day Years Used Date Smoking Tobacco: Former Cigarettes Q uit: 11/16/2018 Smokeless Tobacco: Never Sex and Gender Information Value Date Recorded Sex Assigned at Not on file Gender Identity Not on file Sexual Orientation Not on file documented as of this encounter Miscellaneous Notes * Telephone Encounter - Jaleesa Dye MA - 05/01/2022 12:22 PM CDT Called to let Misha know that we don't really carry any type of brace in our office that would be helpful to her. She has tried the over the counter ones from the stores, but none of them seem to be of any benefit to her. * Telephone Encounter - Karon Joshi - 04/25/2022 2:16 PM CDT Who is calling? Misha If other than self is caller listed on the HIPAA? yes What is the reason for call? Patient's Misha called regarding Blanca. The patient is having increased pain in the left knee and is having difficultly walking with her walker and wanted to know if she would be fitted with a knee brace. She is scheduled to have an injection on 05-29-2022. She would like to come in early for the brace and then come back for the injection. Expected Response from the Clinic? ( ex. Call back, etc..) please call Misha at [phone] can leave a message. documented in this encounter Plan of Treatment Not on file documented as of this encounter Visit Diagnoses Not on filedocumented in this encounter Care Teams Real Estate Transaction Coordinator Relationship Specialty Start Date End Date Akin Coyne MD [address] [place] [address] PCP - General Family Medicine 07/19/15 [place] [address] [address] [address] Physical Medicine and Rehabilitation 01/23/18 documented as of this encounter
--- OUTSIDE RECORDS SUMMARY | 2024-09-22 02:09 | XMS_ITS | Encounter Summary ---
Author Organization [facility] Address [address] [place] [address] Care Team Providers Care Filter Tip Inspector Name Role Phone Akin Coyne MD Primary Care Provider [phone] Adan Umana MD Unavailable [phone] Reason for Visit * Reason Comments Pain Back Pain Leg bilateral Encounter Details Date Type Department Care Team (Late st Contact Info) Description 01/23/2018 1:00 PM CDT Office Visit [facility] Pain Care [address] [place] [address]. [place] [address] [place] [address] [address] Lumbosacral radiculitis (Primary Dx) Social History Tobacco Use Types Packs/Day Years Used Date Smoking Tobacco: Never Assessed Sex and Gender Information Value Date Recorded Sex Assigned at Not on file Gender Identity Not on file Sexual Orientation Not on file documented as of this encounter Last Filed Vital Signs Vital Sign Reading Time Taken Comments Blood Pressure 139/79 01/23/2018 1:15 PM CDT Pulse 76 01/23/2018 1:15 PM CDT Temperature - - Respiratory Rate - - Oxygen Saturation - - Inhaled Oxygen Concentration - - Weight 84.4 kg (186 lb) 01/23/2018 1:15 PM CDT Height 157.5 cm (5' 2 ) 01/23/2018 1:15 PM CDT Body Mass Index 34.02 01/23/2018 1:15 PM CDT documented in this encounter H&P Notes * Adan Umana MD - 01/24/2018 6:17 AM CDT DATE OF SERVICE: 01/23/2018 HISTORY: Ms. Nam is seen in our office today with complaints of low back pain, bilateral gluteal region and posterior thigh pain, and lateral leg pain. She has also noticed weakness in lower extremities. These symptoms have been present for many years. Symptoms are worse with increased activity. She has also noticed some pain at rest. She has also noticed nocturnal pain. Treatment for the symptoms in the past has included physical therapy sessions and injections. PAST MEDICAL/SURGICAL HISTORY: High blood pressure, diabetes, osteoarthritis, ankylosing spondylitis, psoriatic arthritis, section, lumbar spine surgery carpal tunnel release, and rectal surgery. FAMILY HISTORY: Noncontributory. MEDICATIONS: Current medications reviewed. ALLERGIES: Keflex. REVIEW OF SYSTEMS: Chest pains secondary to shingles, weight gain, and fatigue. Patient denies any fever, chills, calf cramps with walking, diarrhea, dysuria, hot or cold spells, nausea or vomiting, nosebleeds, hoarseness, loss of hearing, ear pain, change of vision, stomach pain or ulcers, bowel or bladder dysfunction, shortness of breath, loss of appetite, difficulty swallowing, abnormal heartbeat, swollen ankles, cough, headaches, blackouts, seizures, rash or nervous exhaustion. SOCIAL HISTORY: She is retired and lives with her . She denies the use of alcohol or drugs. She has smoked in the past on and off for about 48 years. PHYSICAL EXAM: Ms. Nam is a 72-year-old female who is 5 feet 2 inches in height and weighs 186 pounds. Ankle edema is noted bilaterally. No calf tenderness is noted. She rates her pain to be 6/10. EXAMINATION OF GAIT: She is able to ambulate with decrease stride length bilaterally. CERVICAL SPINE EXAM: No paravertebral muscle spasm or tenderness is noted. Range of motion is decreased in extension, lateral flexion, and lateral rotation without pain. Spurling's is negative. THORACOLUMBAR SPINE EXAM: Scar is noted in the lumbar region. No midline tenderness is noted. Range of motion is limited in all planes with pain on extension and lateral flexion in either direction. Radicular signs are positive bilaterally on straight leg raise and sit/slump tests. BILATERAL SACROILIAC JOINT EXAM: Tenderness is elicited in bilateral sacroiliac joint region. Winston's test is negative for SI joint pain. BILATERAL HIP EXAM: No groin pain is noted on movement. Trochanteric regions and piriformis are nontender. Hamstring tightness noted bilaterally. NEUROLOGICAL EXAM: Motor, bulk and tone are normal in both upper and lower extremities. Motor strength testing reveals 5/5 in all muscle groups in both upper and lower extremities. Deep tendon reflexes were absent throughout and symmetrical. Plantar response was flexor bilaterally. No focal sensory deficit was noted. Cruz's sign was negative bilaterally. Give-way weakness is noted in bilateral ankle dorsiflexion and plantar flexion, which is not consistently reproduced. Plantar response was flexor bilaterally. RADIOGRAPHS: MRI of the lumbar spine done on 01/14/2018 revealed evidence of central canal stenosis at L3-4 and L4-5 levels. Bilateral foraminal stenosis is noted at multiple levels. Central canal stenosis is also noted at the L3-4 level. A large diffuse disk bulge is noted. Eesa-iq-pagcaolm a canal stenosis at L2-3 level, mild canal stenosis at L1-2 level secondary to disk bulge, and facet arthropathy. Bilateral foraminal stenosis was noted at L2-3 level and towards the right at the L1-2 levels. IMPRESSION: 1. Bilateral sacroiliac joint dysfunction. 2. Lumbar stenosis. 3. Neurogenic claudication. 4. Lumbosacral radiculitis. 5. Gait difficulty. PLAN: I discussed the clinical findings with the patient and her . Further treatment options including an exercise program, use of NSAIDs, cortisone injections, and surgical intervention were discussed. She would like to continue with the exercise program. She would also consider doing the cortisone injection, but however, would like to set it up in the clinic setting (in view of high co-pay). Names were provided to the patient of physicians were Pain Management physicians who do the procedures in the clinic setting. She would also continue with the home exercise program and she was provided illustrations. She would follow up with me on an as-needed basis. supply chain assistant was present during the examination and discussion. The patient's was also present on the examination and discussion. Adan Trent M.D. HAYEDE/Dara #: [id number] documented in this encounter Plan of Treatment Not on file documented as of this encounter Visit Diagnoses Diagnosis Lumbosacral radiculitis- Primary Thoracic or lumbosacral neuritis or radiculitis, unspecified documented in this encounter Care Teams Filter Tip Inspector Relationship Specialty Start Date End Date Akin Coyne MD [address] [place] [address] PCP - General Family Medicine 07/19/15 [place] [address] [address] Physical Medicine and Rehabilitation 01/23/18 documented as of this encounter
--- OUTSIDE RECORDS SUMMARY | 2024-09-22 02:09 | XMS_ITS | Encounter Summary ---
Author Organization [facility] Address [address] [place] [address] Care Team Providers Care Pc Maintenance Technician Name Role Phone Akin Coyne MD Primary Care Provider [phone] Adan Umana MD Unavailable [phone] Reason for Referral * Radiology Services (Routine) - Closed Specialty Diagnoses / Procedures Referred By Contac t Referred To Contact Diagnoses Abdominal pain, right upper quadrant Procedures US ABDOMEN LIMITED Shahriar Cook MD Referral ID Status Reason Start Date Expiration Date Visits Re quested Visits Authorized [id number] Closed 10/09/2017 04/07/2018 1 1 Reason for Visit * Radiology Services (Routine) - Closed Specialty Diagnoses / Procedures Referred By Contac t Referred To Contact Diagnoses Abdominal pain, right upper quadrant Procedures US ABDOMEN LIMITED Shahriar Cook MD Referral ID Status Reason Start Date Expiration Date Visits Re quested Visits Authorized [id number] Closed 10/09/2017 04/07/2018 1 1 Encounter Details Date Type Department Care Team (Latest Contact Info) Description 05/13/2018 8:40 AM CDT - 05/13/2018 8:50 AM CDT Hospital Encounter [facility] Imaging Services - Ultrasound [address] [place] [address] Shahriar Cook MD Discharge Disposition: Home or [...] mouth every 4 hours as needed 01/26/20 22 ibuprofen (MOTRIN) 800 MG tablet TK 1 T PO Q 8 H 0 10/09/2017 01/25/2022 lamoTRIgine (LAMICTAL) 150 MG tablet Take 150 mg by mouth 2 times daily 01/30/2022 metFORMIN ER 24hr (GLUCOPHAGE XR) 500 MG tablet TK 1 T PO QD WITH THE GUDELIA MEAL FOR 7 DAYS. INCREASE TO 2 T PO QPM 0 12/18/2017 2 methotrexate, PF, (OTREXUP) 25 MG/0.4ML auto-injector Inject 25 mg subcutaneously every 7 days 01/25/2022 METOPROLOL SUCCINATE ER PO Take 100 mg by mouth once daily 01/30/2022 metoprolol succinate XL 24hr (TOPROL XL) 50 MG tablet TK 1 T PO QD 2 12/09/2017 01/30/2022 niacin, Immediate Release, 500 MG tablet Take 500 mg by mouth at bedtime 01/30/2022 nystatin (MYCOSTATIN) [id number] UNIT/ML suspension SHAKE LQ AND TK 5 [...] Procedure Name Priority Date/Time Associated Diagnosis Comments US ABDOMEN LIMITED Routine 05/13/2018 9: 15 AM CDT Abdominal pain, right upper quadrant documented in this encounter Results * US ABDOMEN LIMITED (05/13/2018 9:15 AM CDT) Anatomical Region Laterality Modality Abdomen Ultrasound 05/13/2018 11:4 8 AM CDT Impressions 05/13/2018 1:09 PM CDT Fatty infiltration to the liver. Edited by Leila Canales on 05/13/2018 11:53 AM Reading Radiologist: Maximo Shah MD on 05/13/2018 at 1:09 PM Narrative 05/13/2018 1:09 PM CDT ULTRASOUND ABDOMEN LIMITED Indication: Right upper quadrant abdominal pain. Findings: Ultrasound without prior shows increased echotexture to the liver consistent with fatty infiltration. The pancreas is unremarkable. The gallbladder is normal. Common bile duct measures 0.51 cm. The right kidney measures 10.93 x 4.45 x 4.59 cm. There is no hydronephrosis. There is normal color flow and Doppler waveform to the portal vein and hepatic vein. Procedure Note Maximo Shah MD - 05/13/2018 ULTRASOUND ABDOMEN LIMITED Indication: Right upper quadrant abdominal pain. Findings: Ultrasound without prior shows increased echotexture to the liver consistent with fatty infiltration. The pancreas is unremarkable. The gallbladder is normal. Common bile duct measures 0.51 cm. The right kidney measures 10.93 x 4.45 x 4.59 cm. There is no hydronephrosis. There is normal color flow and Doppler waveform to the portal vein and hepatic vein. IMPRESSION Fatty infiltration to the liver. Edited by Leila Canales on 05/13/2018 11:53 AM Reading Radiologist: Maximo Shah MD on 05/13/2018 at 1:09 PM Shahriar Cook MD US ORDERABLES documented in this encounter Visit Diagnoses Diagnosis Abdominal pain, right upper quadrant documented in this encounter Care Teams Pc Maintenance Technician Relationship Specialty Start Date End Date Akin Coyne MD [address] [place] [address] PCP - General Family Medicine 07/19/15 [place] [address] [address] Physical Medicine and Rehabilitation 01/23/18 documented as of this encounter
--- OUTSIDE RECORDS SUMMARY | 2024-09-22 02:09 | XMS_ITS | Encounter Summary ---
Author Organization [facility] Address [address] [facility] [place] [address] Care Team Providers Care Scientific Photographer Name Role Phone Akin Coyne MD Primary Care Provider [phone] Adan Umana MD Unavailable [phone] Reason for Referral * OP/Amb RFL Auth (Routine) - Closed Specialty Diagnoses / Procedures Referred By Contac t Referred To Contact Diagnoses Chronic pain of both shoulders Primary osteoarthritis of left knee 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 Procedures [place] DRAIN/INJECT LARGE JOINT/BURSA Trinity Chao PA-C [address] [employer] [address] [place] [id number] Referral ID Status Reason Start Date Expiration Date Visits Re quested Visits Authorized [id number] Closed 08/27/2023 08/26/2024 1 1 DIALYSIS * OP/Amb RFL Auth (Routine) - Closed Specialty Diagnoses / Procedures Referred By Contac t Referred To Contact Diagnoses Chronic pain of both shoulders Primary osteoarthritis of left knee 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 Procedures [place] DRAIN/INJECT LARGE JOINT/BURSA Trinity Chao PA-C [address] [employer] [address] [place] [phone] Referral ID Status Reason Start Date Expiration Date Visits Re quested Visits Authorized [id number] Closed 08/27/2023 08/26/2024 1 1 DIALYSIS Reason for Visit * Reason Comments Follow-up DANIS SHOULDERS- LEFT KNEE Encounter Details Date Type Department Care Team (Latest Contact Info) Description 08/27/2023 1:45 PM RN DIALYSIS Office Visit [facility] Orthopedics [address] [facility], [address] [place] [phone] Trinity Chao PA-C [address] [facility] [address] [place] [address] [phone] Chronic pain of both shoulders (Primary Dx); [...] on file documented as of this encounter Progress Notes * Trinity Chao PA-C - 08/27/2023 1:24 PM CST CHIEF COMPLAINT: 1. Bilateral shoulder pain. 2. [...] arthritis, psoriatic arthritis, and ankylosing spondylitis. Her freelance copywriter is Dr. Cook. PHYSICAL EXAM: This is a healthy appearing female who is alert and oriented and in no distress. Head is atraumatic and normocephalic. There is no height or weight on file to calculate BMI. . Patient is in a wheelchair today. Examination [...] empty can bilaterally Negative belly press Negative [place]'s Examination of the left knee reveals that [...] Score (Left) 8 SST Score (Right) 6 05/29/2022 01/21/2023 05/22/2023 08/27/2023 Patient-Reported Satisfaction Current state satisfactory? No No No No Prior treatment? No No Yes - non-surgical treatment Yes - non-surgical treatment Function since treatment Slightly Improved Improved Currently taking narcotics? No No No No 05/22/2023 08/27/2023 PROMIS Upper Extremity PROMIS UE Function Score 22 (severe dysfunction) 23 (severe dysfunction) 05/29/2022 01/21/2023 05/22/2023 08/27/2023 PROMIS Pain Interference PROMIS PI Score 72 (severe) 72 (severe) 72 (severe) 72 (severe) 05/29/2022 08/27/2023 Depression Screening PHQ-2 Score 3 (Further screening recommended) Incomplete Patient Health Questionnaire-2 Score 3 X-RAY: AP, axillary lateral and outlet radiographs [...] procedure well and there were no complications. DIALYSIS * Jay Carroll MA - 08/27/2023 1:17 PM CST Chief Complaint Patient presents with ??? Follow-up DANIS SHOULDERS- LEFT KNEE DIALYSIS documented in this encounter Plan of Treatment [...] 3 mL, Intra-articular, ONCE, 1 dose, On Sat08/27/23 at 1345 $ Given 08/27/2023 1:31 PM RN DIALYSIS 3 mL Other see comments lidocaine PF (Xylocaine MPF) 1 % injection 6 mL 6 mL, Intra-articular, ONCE, 1 dose, On Sat08/27/23 at 1345 $ Given 08/27/2023 1:32 PM RN DIALYSIS 6 mL Left Knee triamcinolone acetonide (Kenalog-40) injection 160 mg 160 mg, Intra-articular, ONCE, 1 dose, On Sat08/27/23 at 1345, Shake well before using. $ Given 08/27/2023 1:32 PM RN DIALYSIS 160 mg Other see comments triamcinolone acetonide (Kenalog-40) injection 80 mg 80 mg, Intra-articular, ONCE, 1 dose, On Sat08/27/23 at 1345, Shake well before using. $ Given 08/27/2023 1:33 PM RN DIALYSIS 80 mg Left Knee documented in this encounter Care Teams Scientific Photographer Relationship Specialty Start Date End Date Akin Coyne MD [address] [place] [address] PCP - General Family Medicine 07/19/15 [place] [address] [address] Physical Medicine and Rehabilitation 01/23/18 documented as of this encounter
--- OUTSIDE RECORDS SUMMARY | 2024-09-22 02:09 | XMS_ITS | Encounter Summary ---
Author Organization [facility] Address [address] [facility] [place] [address] Care Team Providers Care Confectionery Maker Name Role Phone Akin Coyne MD Primary Care Provider [phone] Encounter Details Date Type Department Care Team (Latest Contact Info) Description 07/19/2015 3:05 PM TREE SPECIALIST Hospital Encounter [facility] Imaging Services - Radiology [address] [place], [place] [id number] Shahriar Cook MD Discharge Disposition: Home or [...] Name Priority Date/Time Associated Diagnosis Comments XR HAND BILAT 2VW Routine 07/19/2015 3:4 6 PM TREE SPECIALIST Back pain, unspecified location Polyarthritis documented in this encounter Results * XR HANDS BILATERAL 2 VIEWS (07/19/2015 3:46 PM TREE SPECIALIST) Anatomical Region Laterality Modality Wrist / Hand, Upper Extremity Ra diographic Imaging 07/19/2015 3:52 PM TREE SPECIALIST Narrative 07/19/2015 4:28 PM TREE SPECIALIST 3 VIEWS SACROILIAC JOINTS AP PELVIS SINGLE AP VIEW OF THE RIGHT KNEE SINGLE AP VIEW OF THE LEFT HAND 4 VIEWS RIGHT KNEE 4 VIEWS LEFT KNEE INDICATION: Bilateral sacroiliac joint pain, pelvic pain, right hand pain, left hand pain, right knee pain and left knee pain. FINDINGS: SACROILIAC JOINTS: Minor degenerative change along the left sacroiliac joint. No erosive changes. No abnormal sclerosis or lucency. No acute findings. AP PELVIS: Pubic symphysis and hip joints are symmetric. There is bony demineralization. No acute findings. RIGHT HAND: There is moderate to severe hypertrophic arthritic change at the first carpal metacarpal joint. No erosions or subluxations. LEFT HAND: No erosions or subluxations. No significant degenerative disease. RIGHT KNEE: Bony demineralization. No acute fracture, malalignment, or degenerative disease. LEFT KNEE: Mild degenerative changes in the medial compartment. Bony demineralization. Small joint effusion. Edited by Earlene Bruce on 07/19/2015 4:23 PM Procedure Note Rogelio Alas MD - 07/19/2015 3 VIEWS SACROILIAC JOINTS AP PELVIS SINGLE AP VIEW OF THE RIGHT KNEE SINGLE AP VIEW OF THE LEFT HAND 4 VIEWS RIGHT KNEE 4 VIEWS LEFT KNEE INDICATION: Bilateral sacroiliac joint pain, pelvic pain, right hand pain, left hand pain, right knee pain and left knee pain. FINDINGS: SACROILIAC JOINTS: Minor degenerative change along the left sacroiliac joint. No erosive changes. No abnormal sclerosis or lucency. No acute findings. AP PELVIS: Pubic symphysis and hip joints are symmetric. There is bony demineralization. No acute findings. RIGHT HAND: There is moderate to severe hypertrophic arthritic change at the first carpal metacarpal joint. No erosions or subluxations. LEFT HAND: No erosions or subluxations. No significant degenerative disease. RIGHT KNEE: Bony demineralization. No acute fracture, malalignment, or degenerative disease. LEFT KNEE: Mild degenerative changes in the medial compartment. Bony demineralization. Small joint effusion. Edited by Earlene Bruce on 07/19/2015 4:23 PM Shahriar Cook MD DIAGNOSTIC IMAGING O RDERABLES documented in this encounter Visit Diagnoses Diagnosis Back pain, unspecified location Polyarthritis Unspecified polyarthropathy or polyarthritis, site unspecified documented in this encounter Care Teams Confectionery Maker Relationship Specialty Start Date End Date Akin Coyne MD [address] [place] [address] PCP - General Family Medicine 11/3/15 documented as of this encounter
--- OUTSIDE RECORDS SUMMARY | 2024-09-22 02:09 | XMS_ITS | Encounter Summary ---
Author Organization [facility] Address [address] [facility] [place] [address] Care Team Providers Care Inverted Block Operator Name Role Phone Akin Coyne MD Primary Care Provider [phone] Adan Umana MD Unavailable [phone] Reason for Visit * Reason Onset Date Comments Pain Back Pain Knee left Encounter Opened In Error 02/03/2018 Encounter Details Date Type Department Care Team (Late st Contact Info) Description 01/27/2018 8:20 AM CDT Office Visit [facility] Pain Care [address] [place] [address]. [place] [address] Adan Umana MD [address] [place] [id number] ERRONEOUS ENCOUNTER--DISREGARD (Primary Dx) Social History Tobacco Use Types [...] - - Weight 84.4 kg (186 lb) 01/27/2018 7:49 AM CDT Height 157.5 cm (5' 2 ) 01/27/2018 7:49 AM CDT Body Mass Index 34.02 01/27/2018 7:49 AM CDT documented in this encounter Progress Notes * Laura Nobles - 02/03/2018 10:24 AM CDT Blanca Nam encounter was opened in error. Please disregard any activity associated with this encounter. documented in this encounter Plan of Treatment Not on file documented as of this encounter Visit Diagnoses Diagnosis ERRONEOUS ENCOUNTER--DISREGARD- Primary documented in this encounter Care Teams Inverted Block Operator Relationship Specialty Start Date End Date Akin Coyne MD [address] [place] [id number] PCP - General Family Medicine 07/19/15 [place] [address] [address] Physical Medicine and Rehabilitation 01/23/18 documented as of this encounter
--- OUTSIDE RECORDS SUMMARY | 2024-09-22 02:09 | XMS_ITS | Encounter Summary ---
Author Organization [facility] Address [address] [place] [address] Phone Care Team Providers Care Floor Broker Name Role Phone Gagan Coyne MD Primary Care Provider [phone] Reason for Visit * Reason Onset Date Comments Appointment 07/18/2022 Encounter Details Date Type Department Care Team (Late st Contact Info) Description 07/18/2022 Telephone [facility] [address] [place] [address] Devang Hurt, MARGARITA PR Appointment Social History Tobacco Use Types Packs/Day Years Used Date Smoking Tobacco: Never Assessed Comments Unknown Sex and Gender Information Value Date Recorded Sex Assigned at Not on file Legal Sex Female 7:08 PM CDT Gender Identity Not on file Sexual Orientation Not on file COVID-19 Exposure Response Date Recorded In the last 10 days, have yo u been in contact with someone who was confirmed or suspected to have Coronavirus/COVID-19? No / Unsure 07/13/2022 12:47 PM CDT documented as of this encounter Miscellaneous Notes * Telephone Encounter - Devang Hurt PTA - 07/18/2022 1:28 PM CDT Pt's called to cancel session due to pt having increased shoulder pain. Pt's asked me to call him back concerning pt. I returned his phone call. reported pt was doing her exercises on Saturday and she hurt her shoulder. He was not in the room when it happened so he doesn't know how. Pt's states she has severe OA in her shoulders and this happens from time to time. One time she was put into a sling. I advised him that if the pain remains severe, he should follow up with her MD since this happened on Saturday and the pain level remained high. Pt's was advisedif she feels well enough to tolerate therapy Saturday, they were encouraged to come but if not, be sure to call and cancel. Pt's stated they are hoping to attend as long as she feels well. documented in this encounter Plan of Treatment Not on file documented as of this encounter Visit Diagnoses Not on filedocumented in this encounter Care Teams Floor Broker Relationship Specialty Start Date End Date Gagan Coyne MD [address] [place] [address] PCP - General Family Medicine 01/16/20 documented as of this encounter
--- OUTSIDE RECORDS SUMMARY | 2024-09-22 02:09 | XMS_ITS | Encounter Summary ---
Author Organization [facility] Address [address] [facility] [place] [address] Care Team Providers Care Grinding And Polishing Laborer Name Role Phone Akin Coyne MD Primary Care Provider [phone] Encounter Details Date Type Department Care Team (Latest Contact Info) Description 07/19/2015 3:00 PM CHIEF ARCHITECT - 07/19/2015 3:04 PM CHIEF ARCHITECT Hospital Encounter [facility] Imaging Services - Radiology [address] [place], [place] [phone] Shahriar Cook MD Discharge Disposition: Home or [...] Name Priority Date/Time Associated Diagnosis Comments XR SI JOINTS 3VW OR MORE Routine 07/19/2015 3:46 PM CHIEF ARCHITECT Back pain, unspecified location Polyarthritis documented in this encounter Results * XR SACROILIAC JOINTS 3+ VW (07/19/2015 3:46 PM CHIEF ARCHITECT) Anatomical Region Laterality Modality Pelvis, Lower Extremity [facility] 07/19/2015 3:52 PM CHIEF ARCHITECT Narrative 07/19/2015 4:28 PM CHIEF ARCHITECT 3 VIEWS SACROILIAC JOINTS AP PELVIS SINGLE [...] unspecified documented in this encounter Care Teams Grinding And Polishing Laborer Relationship Specialty Start Date End Date Akin Coyne MD [address] [place], [place] [phone] PCP - General Family Medicine 07/19/15 documented as of this encounter
--- OUTSIDE RECORDS SUMMARY | 2024-09-22 02:09 | XMS_ITS | Encounter Summary ---
Author Organization [employer] Care Team Providers Care Hotel Engineer Name Role Phone Gagan Coyne MD Primary Care Provider [phone] Encounter Details Date Type Department Care Team (Latest Contact Info) Description 02/25/2023 Travel Social History Tobacco Use Types Packs/Day Years [...] suspected to have Coronavirus/COVID-19? No / Unsure 02/25/2023 10:03 AM CDT documented as of this encounter Plan of Treatment Not on file documented as of this encounter Visit Diagnoses Not on filedocumented in this encounter Care Teams Hotel Engineer Relationship Specialty Start Date End Date Gagan Coyne MD [address] [place] [address] PCP - General Family Medicine 01/16/20 documented as of this encounter
--- OUTSIDE RECORDS SUMMARY | 2024-09-22 02:09 | XMS_ITS | Encounter Summary ---
Author Organization [facility] Address [address] [facility] [place] [address] Care Team Providers Care Utility Service Worker Name Role Phone Akin Coyne MD Primary Care Provider Adan Umana MD Unavailable [phone] Encounter Details Date Type Department Care Team (Latest Contact Info) Description 12/27/2021 Travel Social History Tobacco Use Types Packs/Day [...] on filedocumented in this encounter Care Teams Utility Service Worker Relationship Specialty Start Date End Date Akin Coyne MD [address] [place] [address] PCP - General Family Medicine 07/19/15 [place] [address] [address] Physical Medicine and Rehabilitation 01/23/18 documented as of this encounter
--- OUTSIDE RECORDS SUMMARY | 2024-09-22 02:09 | XMS_ITS | Encounter Summary ---
Author Organization [facility] Address [address] [place] [address] Care Team Providers Care Retail Personal Banker Name Role Phone Akin Coyne MD Primary Care Provider [phone] Adan Umana MD Unavailable [phone] Reason for Referral * OP/Amb RFL Auth (Routine) - Open Specialty Diagnoses / Procedures Referred By Contac t Referred To Contact Diagnoses Primary osteoarthritis of left knee Procedures [place] DRAIN/INJECT LARGE JOINT/BURSA Trinity Chao PA-C [address] [employer] [address] [place] [id number] Referral ID Status Reason Start Date Expiration Date Visits Re quested Visits Authorized [id number] Open 02/25/2024 02/24/2025 1 1 * OP/Amb RFL Auth (Routine) - Open Specialty Diagnoses / Procedures Referred By Contac t Referred To Contact Diagnoses 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, [address] [place] [phone] Trinity Chao PA-C [address] [facility] [address] [place] [address] Primary osteoarthritis of left shoulder (Primary Dx); Primary osteoarthritis of right shoulder; Primary osteoarthritis of left knee Social History Tobacco Use Types Packs/Day Years [...] Progress Notes * Trinity Chao PA-C - 02/25/2024 1:04 PM CDT CHIEF COMPLAINT: Bilateral shoulder pain. Left knee pain HISTORY OF PRESENT ILLNESS: [...] pain. She also has left knee DJD. She just returned from a trip visiting family in [place]. Of note, she does report a history of rheumatoid arthritis, psoriatic arthritis, and ankylosing spondylitis. Her content administrator is Dr. Cook. PHYSICAL EXAM: This is [...] empty can bilaterally Negative belly press Negative [place]'s Examination of the left knee reveals that [...] No bony abnormalities are otherwise noted. IMPRESSION: Left shoulder DJD. Right shoulder DJD Left knee DJD PLAN: I reviewed the [...] the left knee joint from anterior laterally. Patient name and were confirmed Procedure was confirmed with patient Informed consent was obtained The appropriate site was identified and confirmed Medication order/Injectable was verified documented in this encounter Plan of Treatment Not on file documented as of this encounter Visit Diagnoses Diagnosis Primary osteoarthritis of left shoulder- Primary Primary localized osteoarthrosis, shoulder region Primary osteoarthritis of right shoulder Primary localized osteoarthrosis, shoulder region Primary osteoarthritis of left knee Primary localized osteoarthrosis, lower leg documented in this encounter Administered Medications Inactive Administered Medications - up to 3 most recent administrations Medication Order MAR Action Action Date Dose Rate Site lidocaine PF (Xylocaine MPF) 1 % injection 3 mL 3 mL, Intra-articular, ONCE, 1 dose, On Sat02/25/24 at 1330 $ Given 02/25/2024 1:36 PM CDT 3 mL Left Knee lidocaine PF (Xylocaine MPF) 1 % injection 6 mL 6 mL, Intra-articular, ONCE, 1 dose, On Sat02/25/24 at 1330 $ Given 02/25/2024 1:35 PM CDT 6 mL Other see comments triamcinolone acetonide (Kenalog-40) injection 40 mg 40 mg, Intra-articular, ONCE, 1 dose, On Sat02/25/24 at 1330, Shake well before using. $ Given 02/25/2024 1:36 PM CDT 40 mg Left Knee triamcinolone acetonide (Kenalog-40) injection 80 mg 80 mg, Intra-articular, ONCE, 1 dose, On Sat02/25/24 at 1330, Shake well before using. $ Given 02/25/2024 1:35 PM CDT 80 mg Other see comments documented in this encounter Care Teams Retail Personal Banker Relationship Specialty Start Date End Date Akin Coyne MD [address] [place] [address] PCP - General Family Medicine 07/19/15 [place] [address] [address] Physical Medicine and Rehabilitation 01/23/18 documented as of this encounter
--- OUTSIDE RECORDS SUMMARY | 2024-09-22 02:09 | XMS_ITS | Patient Health Summary ---
Author Organization [facility] Address [address] [place] [address] Care Team Providers [facility] Office Supervisor Name Role Phone Akin Coyne MD Primary Care Provider Adan Umana MD Unavailable [phone] Note from [facility],non-owned Affiliates and Associated Physician Practices is amultiple site organization consisting of ambulatory clinics and hospital sitesin [place], [place], [place] and [place]. This disclosure is being madepursuant to the Care Everywhere program and may not contain all information available regarding this patient. Last updated 18.[facility] Allergies * Cephalexin(Swelling) * Pseudoephedrine-Ibuprofen(Unknown) Medications * Be aware that medications may not be up to date on this document. Alwaysverify current medications with the patient. * DULoxetine (CYMBALTA) 60 MG capsule Take 2 (two) capsules by mouth once daily * traZODone (DESYREL) 50 MG tablet Take 1 (one) tablet by mouth at bedtime Taking 2 tablets at bedtime * gabapentin (NEURONTIN) 300 MG capsule Take 1 (one) capsule by mouth 3 times daily * Cholecalciferol (VITAMIN D-3 PO) Take 25 mg by mouth once daily * amLODIPine (NORVASC) 10 MG tablet(Started 01/13/2018) 0.5 (one-half) tablet 3 refills left * fluticasone propionate (FLONASE) 50 MCG/ACT nasal spray(Started 11/01/2017) SHAKE LQ AND U 1 TO 2 SPRAYS IEN QD PRN * ASPIRIN LOW DOSE 81 MG chew tablet(Started 07/16/2021) Take 1 (one) tablet by mouth once daily * acetaminophen (TYLENOL) 500 MG tablet Take 1 (one) tablet by mouth every 6 hours as needed * albuterol HFA (PROVENTIL; VENTOLIN; PROAIR) 108 (90 Base) MCG/ACT inhaler (Started 09/22/2021) Inhale 2 (two) puffs by mouth every 6 hours as needed * amLODIPine (NORVASC) 5 MG tablet(Started 12/24/2021) Take 1 (one) tablet by mouth 2 times daily * ascorbic acid (VITAMIN C) 500 MG tablet(Started 01/12/2022) Take 500 mg by mouth once daily * azithromycin (ZITHROMAX) 250 MG tablet(Started 09/29/2021) Take 1 tablet by mouth once daily * lamoTRIgine (LAMICTAL) 100 MG tablet(Started 12/19/2021) Take 25 mg by mouth once daily * LORazepam (ATIVAN) 0.5 MG tablet(Started 01/12/2022) Take 1 (one) tablet by mouth once daily as needed FOR ANXIETY * pantoprazole EC (PROTONIX) 40 MG tablet(Started 12/18/2021) Take 40 mg by mouth every morning * traMADol (ULTRAM) 50 MG tablet(Started 01/19/2022) Take 1 (one) tablet by mouth 3 times daily With OTC Tylenol * metoprolol succinate XL 24hr (TOPROL XL) 100 MG tablet(Started 12/26/2021) Take 1 (one) tablet by mouth once daily * secukinumab (COSENTYX) 150 MG/ML prefilled syringe Inject 300 (three hundred) mg subcutaneously every 14 days * thiamine (Vitamin B1) 100 MG tablet(Started 03/24/2022) Take 1 tablet by mouth every morning * omeprazole (PriLOSEC) 40 MG capsule Take 1 (one) capsule by mouth daily before breakfast * sulfaSALAzine (Azulfidine) 500 MG tablet Take 1 (one) tablet by mouth 3 times daily * primidone (Mysoline) 50 MG tablet Take 1 (one) tablet by mouth once daily * diclofenac sodium EC (Voltaren) 75 MG tablet Take 1 (one) tablet by mouth once daily * lamoTRIgine (LaMICtal) 25 MG tablet(Started 02/13/2023) Take 1 (one) tablet by mouth once daily * ciprofloxacin (Cipro) 500 MG tablet(Started 08/12/2023) Take 1 (one) tablet by mouth every 12 hours * losartan (Cozaar) 50 MG tablet(Started 06/23/2023) Take 1 (one) tablet by mouth once daily * methylPREDNISolone (Medrol Dosepak) 4 MG tablet(Started 05/22/2023) TAKE 6 TABLETS ON DAY 1 DIRECTED ON PACKAGE AND DECREASE BY 1 TAB EACH DAY FOR A TOTAL OF 6 DAYS * metroNIDAZOLE (Flagyl) 500 MG tablet(Started 08/12/2023) Take 1 (one) tablet by mouth every 12 hours * HYDROcodone-acetaminophen (Martelle) 5-325 MG tablet(Started 10/18/2023) Take 1 (one) tablet by mouth every 4 hours as needed pain * levoFLOXacin (Levaquin) 750 MG tablet(Started 08/30/2023) Take 1 (one) tablet by mouth once daily * meloxicam (Mobic) 7.5 MG tablet(Started 10/31/2023) Take 1 (one) tablet by mouth once daily * docusate sodium (Colace) 100 MG capsule(Started 04/27/2024) Take 1 (one) capsule by mouth * hydrocortisone, rectal, (Anusol-HC) 2.5 % cream(Started 02/21/2024) APPLY RECTALLY DAILY AT BEDTIME NEEDED FOR HEMORRHOIDS * hydrOXYzine HCl (Atarax) 25 MG tablet(Started 11/28/2023) TAKE 1 TABLET BY MOUTH TWICE A DAY NEEDED FOR ITCHING * predniSONE (Deltasone) 5 MG tablet(Started 03/23/2024) PLEASE SEE ATTACHED FOR DETAILED DIRECTIONS * pregabalin (Lyrica) 50 MG capsule(Started 03/23/2024) TAKE 1 CAPSULE (50 MG) BY ORAL ROUTE 3 TIMES PER DAY NEEDED FOR NEUROPATHY Active Problems Problem Noted Date Diagnosed Date Osteoporosis 11/23/2022 Primary osteoarthritis of left knee 05/30/2022 Postmenopausal 12/23/2018 Disorder of bone density and structure, unspecif ied 12/23/2018 KIANNA (obstructive sleep apnea) 12/22/2018 Other specified rheumatoid arthritis, multiple s ites 09/20/2015 Social History Tobacco Use Types Packs/Day Years [...] Mass Index 34.75 11/26/2023 12:58 PM CDT Procedures * XR SHOULDER BILAT 2VW OR MORE(Performed 02/20/2023) Performed for Chronic pain of both shoulders * XR KNEE LEFT 3VW(Performed 01/30/2022) Performed for Left knee pain, unspecified chronicity * XR SHOULDER BILAT 2VW OR MORE(Performed 01/25/2022) Performed for Chronic pain of both shoulders * XR SHOULDER LEFT 2VW OR MORE(Performed 02/23/2020) Performed for Fall, initial encounter * XR CLAVICLE LEFT 2VW(Performed 02/23/2020) Performed for Fall, initial encounter * XR CHEST 2VW(Performed 02/10/2020) Performed for Fall, initial encounter * SARS-COV-2 (COVID-19) IN HOUSE(Performed 01/16/2020) * US ABDOMEN LIMITED(Performed 05/13/2018) Performed for Abdominal pain, right upper quadrant * XR PELVIS W BILAT HIP 2VW(Performed 05/13/2018) Performed for Ankylosing spondylitis of multiple sites in spine (HCC), Tobacco use disorder, Pain of upper abdomen * PAIN MANAGEMENT PROCEDURE TIME(Performed 01/27/2018) Performed for Chronic SI joint pain * XR SI JOINTS 3VW OR MORE(Performed 07/19/2015) Performed for Back pain, unspecified location, Polyarthritis * XR HAND BILAT 2VW(Performed 07/19/2015) Performed for Back pain, unspecified location, Polyarthritis * XR PELVIS 1 OR 2VW(Performed 07/19/2015) Performed for Back pain, unspecified location, Polyarthritis Results * XR SHOULDER BILAT 2VW (02/20/2023 1:47 PM CDT) Only the most recent of2 resultswithin the time period is included. Anatomical Region Laterality Modality Upper Extremity Computed [...] ?? Nita Dimas MD DIAGNOSTIC IMAGING ORDERABLES * XR KNEE LEFT 3VW (01/30/2022 11:52 AM CDT) Anatomical Region Laterality Modality Lower Extremity Computed Radiogr aphy Narrative 01/30/2022 11:51 AM CDT James Laurent ? 01/31/2022 ??3:58 PM See progress notes for patient results. Destiny Lazcano PA-C DIAGNOSTIC IM AGING ORDERABLES * XR SHOULDER 2+ VW LEFT (02/23/2020 11:35 AM CDT) Anatomical Region Laterality Modality Upper Extremity Radiographic Kourtney ging 02/23/2020 2:20 PM CDT Impressions 02/23/2020 2:21 PM CDT Grade 2 glenohumeral joint osteoarthrosis. *Reading Radiologist: Misha Martinez on 02/23/2020 at 2:21 PM Narrative 02/23/2020 2:21 PM CDT Left Shoulder 3 Views INDICATION: Shoulder pain from recent fall FINDINGS: ??The acromioclavicular alignment is normal. The glenohumeral alignment is normal. The adjacent ribs and scapula are intact. Spurring off not only the inferior glenoid but also the adjacent humeral head subchondral cystic changes the inferior bony glenoid consistent with grade 2 osteoarthrosis. Procedure Note Mihsa Martinez MD - 02/23/2020 Left Shoulder 3 Views INDICATION: Shoulder pain from recent fall FINDINGS: The acromioclavicular alignment is normal. The glenohumeral alignment is normal. The adjacent ribs and scapula are intact. Spurring off not only the inferior glenoid but also the adjacent humeral head subchondral cystic changes the inferior bony glenoid consistent with grade 2 osteoarthrosis. IMPRESSION Grade 2 glenohumeral joint osteoarthrosis. *Reading Radiologist: Misha Martinez on 02/23/2020 at 2:21 PM Shahriar Cook MD DIAGNOSTIC IMAGING O RDERABLES * XR CLAVICLE LEFT (02/23/2020 11:35 AM CDT) Anatomical Region Laterality Modality Upper Extremity, Chest Radiograp hic Imaging 02/23/2020 2:14 PM CDT Impressions 02/23/2020 2:14 PM CDT No fracture. *Reading Radiologist: Angela Osorio on 02/23/2020 at 2:14 PM Narrative 02/23/2020 2:14 PM CDT Left clavicle 2 views unilateral INDICATION: Shoulder pain, fall 2 views of the left clavicle are provided. There is no acute fracture. There is osteopenia. Degenerative changes noted at the acromioclavicular joint. Procedure Note Angela Osorio MD - 02/23/2020 Left clavicle 2 views unilateral INDICATION: Shoulder pain, fall 2 views of the left clavicle are provided. There is no acute fracture. There is osteopenia. Degenerative changes noted at the acromioclavicular joint. IMPRESSION No fracture. *Reading Radiologist: Angela Osorio on 02/23/2020 at 2:14 PM Shahriar Cook MD DIAGNOSTIC IMAGING O RDERABLES * XR CHEST 2VW (02/10/2020 11:22 AM [...] Shahriar Cook MD DIAGNOSTIC IMAGING O RDERABLES * SARS-COV-2 (COVID-19) IN HOUSE (01/16/2020 11:20 AM CDT) COVID-19 PCR Not detected Not detected, Invalid 01/17/2020 1:49 PM CDT [facility] MICRO[facility] Microbiology SPECIMEN FROM NASOPHARYNGEAL STRUCTURE / Unknown Collection / Unknown 01/16/2020 11:20 AM CDT 01/16/2020 8:06 PM CDT Narrative [facility] - 01/17/2020 1:49 PM CDT This Real Time RT-PCR assay was developed and its performance characteristics determined by [facility]. This test has been [...] Dg Soares MD LAB - MICROBIOLOGY ORDERABLES [facility]CROBIOLOGY [address] [place] [address], [facility] [phone] * US ABDOMEN LIMITED (05/13/2018 9:15 AM [...] 1:09 PM Shahriar Cook MD US ORDERABLES * XR HIPS BILATERAL 2 VW W AP PELVIS (05/13/2018 9:00 AM CDT) Anatomical Region Laterality Modality Pelvis, Lower Extremity Radiogra phic Imaging 05/13/2018 9:33 AM CDT Impressions 05/13/2018 9:34 AM CDT Bilateral hip osteoarthritis. No acute fracture. Reading Radiologist: Karlos Khalil MD on 05/13/2018 at 9:34 AM Narrative 05/13/2018 9:34 AM CDT Pelvis AP Left hip 2 views Right hip 2 views History: Ankylosing spondylitis. Hip pain. FINDINGS: No acute pelvic or proximal femur fracture. The hips are located and pelvic ring is intact. No osseous lesion identified. There is joint space loss medially at the hips with osteophytic spurring at the femoral head neck junction bilaterally. No osseous lesion is seen. Procedure Note Karlos Khalil MD - 05/13/2018 Pelvis AP Left hip 2 views Right hip 2 views History: Ankylosing spondylitis. Hip pain. FINDINGS: No acute pelvic or proximal femur fracture. The hips are located and pelvic ring is intact. No osseous lesion identified. There is joint space loss medially at the hips with osteophytic spurring at the femoral head neck junction bilaterally. No osseous lesion is seen. IMPRESSION Bilateral hip osteoarthritis. No acute fracture. Reading Radiologist: Karlos Khalil MD on 05/13/2018 at 9:34 AM Shahriar Cook MD DIAGNOSTIC IMAGING O [facility] * PAIN MANAGEMENT PROCEDURE TIME (01/27/2018 8:53 AM CDT) Anatomical Region Laterality Modality X-Ray Angiograph y Narrative 01/27/2018 9:14 AM CDT Adan Umana MD ? 01/27/2018 ??9:14 AM Bilateral Sacroiliac Joint Injection Under Fluoroscopy Blnaca Nam [id number] 01/27/2018 Allergies Allergen Reactions ? ? Keflex [Cephalexin] Swelling Procedure: Bilateral Sacroiliac Joint Injection Under Fluoroscopy Indication for Procedure:SI Joint pain/DJD of SI Joint/ SI Joint Dysfunction ??M46.1, M53.3 Informed Consent: After the patient, Blanca Nam, was informed of the risks and benefits of the procedure and all questions were answered, the consent was signed. Prep:Patient identified, proper procedure and site verified, marked by Dr. Trent. ??In the ??prone position,left sacroiliac joint was identified under fluoroscopy and ??marked on the patient's skin. The skin was prepped in a routine sterile fashion using chloroprep. Under pulsed ??fluoroscopy, a 25 gauge, 3 1/2 inch spinal needle was slowly inserted towards the left ??sacroiliac joint after 1 % lidocaine MPF was used to anesthetize the skin, subcutaneous tissue and the muscle overlying the area. Once the tip of the needle was in proper position, ??1 ml of Kenalog 40 mg per ml ??and 1.0 ml of 1 % lidocaine was injected in a slow, incremental fashion after aspiration revealed no blood ??return. The needle was removed, the skin was cleaned, and ensured no bleeding was noted. The procedure was repeated on the right side. Total Lidocaine : 4.0ml Total Kenalomg The patient tolerated the procedure well without complications. ?? Vital signs stable. Injection site clean, dry, and intact. Post procedure instructions were given to the patient and follow up appointment was confirmed. The patient was discharged with information on how to reach the clinic at any time for questions or concerns. Patient ambulatory, denies complaints, DC to home. Procedure codes: 36082 Adan Umana MD ?? Adan Umana MD DIAGNOSTIC IMAGING O RDERABLES * XR SACROILIAC JOINTS 3+ VW (07/19/2015 3:46 PM TRACTOR DISTRIBUTOR) Anatomical Region Laterality Modality Pelvis, Lower Extremity [facility] 07/19/2015 3:52 PM TRACTOR DISTRIBUTOR Narrative 07/19/2015 4:28 PM TRACTOR DISTRIBUTOR 3 VIEWS SACROILIAC JOINTS AP PELVIS SINGLE [...] Shahriar Cook MD DIAGNOSTIC IMAGING O RDERABLES * XR HANDS BILATERAL 2 VIEWS (07/19/2015 3:46 PM TRACTOR DISTRIBUTOR) Anatomical Region Laterality Modality Wrist / Hand, Upper Extremity Ra diographic Imaging 07/19/2015 3:52 PM TRACTOR DISTRIBUTOR Narrative 07/19/2015 4:28 PM TRACTOR DISTRIBUTOR 3 VIEWS SACROILIAC JOINTS AP PELVIS SINGLE [...] Shahriar Cook MD DIAGNOSTIC IMAGING O RDERABLES * XR PELVIS 1 OR 2 VW (07/19/2015 3:45 PM TRACTOR DISTRIBUTOR) Anatomical Region Laterality Modality Pelvis Radiographic Kourtney ging 07/19/2015 3:52 PM TRACTOR DISTRIBUTOR Narrative 07/19/2015 4:28 PM TRACTOR DISTRIBUTOR 3 VIEWS SACROILIAC JOINTS AP PELVIS SINGLE [...] PM Shahriar Cook MD DIAGNOSTIC IMAGING O [facility] Care Teams [facility] Office Supervisor Relationship Specialty Start Date End Date Akin Coyne MD [address] [place] [id number] PCP - General Family Medicine 07/19/15 [place] [id number] [address] Physical Medicine and Rehabilitation 01/23/18
--- OUTSIDE RECORDS SUMMARY | 2024-09-22 02:09 | XMS_ITS | Encounter Summary ---
Author Organization [facility] Address [address] [place] [address] Care Team Providers Care Byproducts Extractor Name Role Phone Akin Coyne MD Primary Care Provider [phone] Adan Umana MD Unavailable [phone] Encounter Details Date Type Department Care Team (Latest Contact Info) Description 02/23/2020 11:13 AM CDT - 02/23/2020 11:14 AM CDT Hospital Encounter [facility] Imaging Services - Radiology [address] [place], [place] [id number] Shahriar Cook MD Discharge Disposition: Home or [...] by mouth at bedtime 01/30/2022 nystatin (MYCOSTATIN) 696643 UNIT/ML suspension SHAKE LQ AND TK 5 [...] Name Priority Date/Time Associated Diagnosis Comments XR CLAVICLE LEFT 2VW Routine 02/23/2020 11:35 AM CDT Fall, initial encounter documented in this encounter Results * XR CLAVICLE LEFT (02/23/2020 11:35 AM [...] documented in this encounter Visit Diagnoses Diagnosis Fall, initial encounter documented in this encounter Care Teams Byproducts Extractor Relationship Specialty Start Date End Date Akin Coyne MD [address] [place] [id number] PCP - General Family Medicine 07/19/15 [place] [id number] [address] Physical Medicine and Rehabilitation 01/23/18 documented as of this encounter
--- OUTSIDE RECORDS SUMMARY | 2024-09-22 02:09 | XMS_ITS | Encounter Summary ---
Author Organization [facility] Care Team Providers Care Intermission Coordinator Name Role Phone Gagan Coyne MD Primary Care Provider [phone] Encounter Details Date Type Department Care Team (Latest Contact Info) Description 03/25/2023 Travel Social History Tobacco Use Types Packs/Day Years Used Date Smoking Tobacco: Former Cigarettes Smokeless Tobacco: Never Alcohol Use Standard Drinks/Week Comments Not Asked [...] Gao LCSW documented as of this encounter Plan of [...] Diagnoses Not on filedocumented in this encounter Additional Health Concerns Assessment Noted Time PHQ-9 Depression Total Score: 10 023 12:00 PM CDT documented as of this encounter Care Teams Intermission Coordinator Relationship Specialty Start Date End Date Gagan Coyne MD [address] [place] [address] PCP - General Family Medicine 01/16/20 documented as of this encounter
--- OUTSIDE RECORDS SUMMARY | 2024-09-22 02:09 | XMS_ITS | Encounter Summary ---
Author Organization [facility] Address [address] [place] [address] Care Team Providers Care Wire Wrapping Machine Operator Name Role Phone Akin Coyne MD Primary Care Provider [phone] Adan Umana MD Unavailable [phone] Reason for Visit * Oncology Prior Authorization (Routine) - Pending Review Specialty Diagnoses / Procedures Referred By Contac t Referred To Contact Diagnoses Osteoporosis, unspecified osteoporosis type, unspecified pathological fracture presence Procedures DC INJECTION DENOSUMAB 1 MG Shahriar Cook MD [facility] [address] [place] [address] [place] [id number] Referral ID Status Reason Start Date Expiration Date V isits Requested Visits Authorized [id number] Pending Review 11/23/2022 09/15/2023 2 2 Encounter Details Date Type Department Care Team (Latest Contact Info) Description 07/10/2023 2:00 PM CDT - 07/10/2023 11:59 PM CDT Hospital Encounter Infusion Services at [address] [place] [id number] Shahriar Cook MD Discharge Disposition: Home [...] 25 mg by mouth once daily 12/19/2021 lamoTRIgine (LaMICtal) 25 MG tablet Take 1 (one) tablet by mouth once daily 02/13/2023 LORazepam (ATIVAN) 0.5 MG tablet Take 1 (one) tablet by mouth once daily as needed FOR ANXIETY 01/12/2022 losartan (Cozaar) 50 MG tablet Take 1 (one) tablet by mouth once daily 06/23/2023 methylPREDNISolone (Medrol Dosepak) 4 MG tablet TAKE 6 TABLETS ON DAY 1 DIRECTED ON PACKAGE AND DECREASE BY 1 TAB EACH DAY FOR A TOTAL OF 6 DAYS 05/22/2023 metoprolol succinate XL 24hr (TOPROL XL) 100 [...] at bedtime Taking 2 tablets at bedtime documented as of this encounter Progress Notes * Blanche Sky RN - 07/10/2023 3:13 PM CDT Pt seen in the outpt infusion center at [facility] for Prolia. Pt tolerated all medication and procedureswell. BP 164/67 Pulse 68 Temp 98.3 ??F Resp 20 SpO2 96% documented in this encounter Plan of Treatment [...] 60 mg, Subcutaneous, ONCE, 1 dose, On Sat07/10/23 at 1445, Repeat in 6 months for a max of 2 doses in one year each 6 months apart. $ Given 07/10/2023 2:51 PM CDT 60 mg Righ t Arm documented in this encounter Care Teams Wire Wrapping Machine Operator Relationship Specialty Start Date End Date Akin Coyne MD [address] [place] [id number] PCP - General Family Medicine 07/19/15 [place] [address] [address] Physical Medicine and Rehabilitation 01/23/18 documented as of this encounter
--- OUTSIDE RECORDS SUMMARY | 2024-09-22 02:09 | XMS_ITS | Encounter Summary ---
Author Organization [facility] Address [address] [place] [address] Care Team Providers Care Staff Training And Development Manager Name Role Phone Akin Coyne MD Primary Care Provider [phone] Adan Umana MD Unavailable [phone] Reason for Referral * OP/Amb RFL Auth (Routine) - Closed Specialty Diagnoses / Procedures Referred By Contac t Referred To Contact Diagnoses Chronic pain of both shoulders Procedures TX DRAIN/INJECT LARGE JOINT/BURSA López Chavez MD [address] [place] [phone] Referral ID Status Reason Start Date Expiration Date Visits Re quested Visits Authorized [id number] Closed 01/25/2022 01/25/2023 1 1 Reason for Visit * Reason Comments Establish Care Bilat. Shoulder Pain Encounter Details Date Type Department Care Team (Late st Contact Info) Description 01/25/2022 1:30 PM CDT Office Visit [facility] Orthoped[facility] [id number] [place] [address], [address] [address] López Chavez MD [address] [place] [phone] Complete tear of left rotator cuff, unspecified whether traumatic (Primary Dx); Chronic pain of both shoulders Social History Tobacco Use Types Packs/Day Years [...] - - Weight 84.4 kg (186 lb) 01/25/2022 1:35 PM CDT Height 157.5 cm (5' 2 ) 01/25/2022 1:35 PM CDT Body Mass Index 34.02 01/25/2022 1:35 PM CDT documented in this encounter Progress Notes * López Chavez MD - 01/25/2022 11:10 PM CDT PATIENT NAME: Blanca Nam CHIEF COMPLAINT: Chief Complaint Patient presents with ??? Establish Care Bilat. Shoulder Pain HISTORY OF PRESENT ILLNESS: This is a pleasant 76 year old female who complains of left shoulder pain. The patient notes pain in the deltoid region, difficulty using arm at shoulder level and overhead and deep aching pain without loss of motion. The onset of these symptoms was associated with trauma. She fell out of bed and tried to pull herself up by the railing. Symptoms began 4 weeks ago. Symptoms improve with rest, but are worse with activity. The patient presents today for evaluation and management of this problem. PAST MEDICAL HISTORY: No past medical history on file. PAST SURGICAL HISTORY: No past surgical history on file. ALLERGIES: Allergies Allergen Reactions ??? Keflex [Cephalexin] Swelling ??? Pseudoephedrine-Ibuprofen Unknown SOCIAL HISTORY: She reports that she has been smoking. She has never used smokeless tobacco. Review of Systems A 10 point review of systems was performed via the patient questionnaire. The patient's responses were reviewed and signed by both the patient and myself. The questionnaire was scanned and entered into the clinical chart. Physical Exam: Examination reveals a healthy appearing female in no distress. The patient is alert and oriented with normal mood and affect. The patient can ambulate with a normal gait. Vital Signs: Ht 1.575 m (5' 2 ) Wt 84.4 kg (186 lb) BMI 34.02 kg/m2 Body mass index is 34.02 kg/m??. Examination reveals that the bilateral shoulders are symmetric bilaterally. The bilateral shouldersare grossly stable. The left shoulder has no tenderness. Range of motion is as follows: RANGE OF MOTION: RIGHT / LEFT: Forward Elevation: 160 / 150 Abduction: 90 / 90 External Rotation: 45 / 45 Internal Rotation: - / - Abduction with ER: 90 / 90 Sensation to light touch is intact in the bilateral upper extremities and pulses are palpable. Motor strength is 5/5 for forward flexion, 4/5 for supraspinatus, 4/5 for infraspinatus,and 5/5 for subscapularis. Patient has Positive Neers, Positive Viramontes; patient has pain with resisted supraspinatus. Patientdoes not have pain with passive external rotation. Belly press was Negative, bear hug was Not Tested, lift off test was Not Tested. Patient has full range of motion of the cervical spine. Spurlings maneuver is Negative. X Ray: Three views of the left shoulder(s) including AP, axillary lateral and outlet radiographs reveal preserved glenohumeral joint space and preserved acromiohumeral distance with a Type 2 acromion. No bony abnormalities are otherwise noted. Impression: Left rotator cuff tear Plan: Based on the patient's history, physical exam, and imaging the leading diagnosis is rotator cuff syndrome. Due to the patient's age and activity level, we will proceed with conservative management. We discussed the use of NSAIDs and any associated GI prophylaxis. We will also incorporate a course of physical therapy focused on rotator cuff strengthening and scapular stabilization. We will performa cortisone injection at this time. I would like the patient to return to clinic in 6-8 weeks for re-evaluation if symptoms do not resolve completely. Otherwise, the patient can return to clinic early with persistent or worsening pain. Procedure: After the risks and benefits of injection and aspiration were discussed and questions answered, the proposed injection site over the Left Shoulder SA space was prepared in a sterile fashion. Ethyl chloride spray was used to anesthetize the injection site and a hypodermic needle was used to introduce 40 mg of kenalog and 4 cc of sterile 1% lidocaine. Minimal resistance was encountered. The injection site was dressed with a band aid bandage. The patient tolerated the procedure without complication. López Chavez MD * Brina Mckeon MA - 01/25/2022 1:34 PM CDT 11/2021 Pt fell out of bed and pulled herself up w/ a bed rail. documented in this encounter Procedure Notes * Sabrina Delgadillo RT(R) - 01/25/2022 1:25 PM CDTAssociated Order(s): XR SHOULDER BILAT 2VW See progress notes for results documented in this encounter Plan of Treatment Not on file documented as of this encounter Procedures Procedure Name Priority Date/Time Associated Diagnosis Comments XR SHOULDER BILAT 2VW OR MORE Routine 01/25/2022 1:24 PM CDT Chronic pain of both shoulders documented in this encounter Results * XR SHOULDER BILAT 2VW (01/25/2022 1:24 PM CDT) Anatomical Region Laterality Modality Upper Extremity Computed Radiogr aphy Narrative 01/25/2022 1:25 PM CDT Sabirna Delgadillo RT(R) ? 01/25/2022 11:13 PM See progress notes for results López Chavez MD DIAGNOSTIC IMAGING O RDERABLES documented in this encounter Visit Diagnoses Diagnosis Complete tear of left rotator cuff, unspecified whether traumatic- Primary Chronic pain of both shoulders Pain in joint, shoulder region Chronic pain of both shoulders Pain in joint, shoulder region documented in this encounter Administered Medications Inactive Administered Medications - up to 3 most recent administrations Medication Order MAR Action Action Date Dose Rate Site lidocaine PF (Xylocaine MPF) 1 % injection 2 mL 2 mL, Intra-articular, ONCE, 1 dose, On Laura 01/25/22 at 1415 $ Given 01/25/2022 1:53 PM CDT 2 mL Le ft Shoulder triamcinolone acetonide (Kenalog-40) injection 80 mg 80 mg, Intra-articular, ONCE, 1 dose, On Laura 01/25/22 at 1415, Shake well before using. $ Given 01/25/2022 1:54 PM CDT 80 mg Left Shoulder documented in this encounter Care Teams Staff Training And Development Manager Relationship Specialty Start Date End Date Akin Coyne MD [address] [place] [address] PCP - General Family Medicine 07/19/15 [place] [id number] [address] Physical Medicine and Rehabilitation 01/23/18 documented as of this encounter
--- OUTSIDE RECORDS SUMMARY | 2024-09-22 02:09 | XMS_ITS | Encounter Summary ---
Author Organization [facility] Address [address] [place] [address] Care Team Providers Care Housing Case Manager Name Role Phone Akin Coyne MD Primary Care Provider [phone] Reason for Visit * Reason Onset Date Comments Infusion 09/20/2015 Appointment 09/20/2015 Encounter Details Date Type Department Care Team (Late st Contact Info) Description 09/20/2015 Telephone Infusion Services at [address] [address] Shahriar Cook MD Infusion; Appointment Social History Tobacco Use Types Packs/Day Years Used Date Smoking Tobacco: Never Assessed Sex and Gender Information Value Date Recorded Sex Assigned at Not on file Gender Identity Not on file Sexual Orientation Not on file documented as of this encounter Miscellaneous Notes * Telephone Encounter - Lamar Orozco RN - 09/20/2015 9:15 AM CST Spoke with patient and explained that I am waiting for treatment therapy plan from Dr. Cook and benefits verification from Lidia Gaspar. Once this has been verified I will call her back and scheduleinfusion. ER MACHINE OPERATOR documented in this encounter Plan of Treatment Not on file documented as of this encounter Visit Diagnoses Not on filedocumented in this encounter Care Teams Housing Case Manager Relationship Specialty Start Date End Date Akin Coyne MD [address] [place] [address] PCP - General Family Medicine 07/19/15 documented as of this encounter
--- OUTSIDE RECORDS SUMMARY | 2024-09-22 02:09 | XMS_ITS | Encounter Summary ---
Author Organization [facility] Address [address] [facility] [place] [address] Care Team Providers Care Bird Tender Name Role Phone Akin Coyne MD Primary Care Provider [phone] Adan Umana MD Unavailable [phone] Encounter Details Date Type Department Care Team (Latest Contact Info) Description 01/25/2022 1:25 PM CDT Ancillary Procedure [facility] Orthopedics - Radiology [address] [place] [address] López [place] [address] [facility] [address] [place] [address] Chronic pain of both shoulders Social History [...] Radiogr aphy Narrative 01/25/2022 1:25 PM CDT Sabrina Delgadillo, RT(R) ? 01/25/2022 11:13 PM See progress notes for results López Chavez MD DIAGNOSTIC IMAGING O CHRISTOPH documented in this encounter Visit Diagnoses Diagnosis Chronic pain of both shoulders Pain in joint, shoulder region documented in this encounter Care Teams Bird Tender Relationship Specialty Start Date End Date Akin Coyne MD [address] [place] [address] PCP - General Family Medicine 07/19/15 [place] [address] [address] Physical Medicine and Rehabilitation 01/23/18 documented as of this encounter
--- OUTSIDE RECORDS SUMMARY | 2024-09-22 02:09 | XMS_ITS | Encounter Summary ---
Author Organization [facility] Address [address] [place] [address] Care Team Providers Care Body Wirer Name Role Phone Akin Coyne MD Primary Care Provider [phone] Adan Umana MD Unavailable [phone] Encounter Details Date Type Department Care Team (Latest Contact Info) Description 01/11/2022 Travel Social History Tobacco Use Types Packs/Day [...] on filedocumented in this encounter Care Teams Body Wirer Relationship Specialty Start Date End Date Akin Coyne MD [address] [place] [address] PCP - General Family Medicine 07/19/15 [place] [address] [address] Physical Medicine and Rehabilitation 01/23/18 documented as of this encounter
--- OUTSIDE RECORDS SUMMARY | 2024-09-22 02:09 | XMS_ITS | Encounter Summary ---
Author Organization [facility] Address [address] [facility] [place] [address] Care Team Providers Care Newspaper Carrier Name Role Phone Akin Coyne MD Primary Care Provider [phone] Reason for Visit * Oncology Prior Authorization - Closed Specialty Diagnoses / Procedures Referred By Contac t Referred To Contact Infusion Therapy Nurse Diagnoses Other specified rheumatoid arthritis, multiple sites (HCC) Procedures DC INFLIXIMAB INJECTION Shahriar Cook MD [facility] [address] [place] [phone] Referral ID Status Reason Start Date Expiration Date Visits Re quested Visits Authorized [id number] Closed 09/20/2015 09/15/2016 1 12 Encounter Details Date Type Department Care Team (Latest Contact Info) Description 10/11/2015 8:56 AM CLINICAL IMMUNOLOGIST - 10/11/2015 11:59 PM CLINICAL IMMUNOLOGIST Hospital Encounter Infusion Services at [facility] [address] [facility] [address] [place], [place] [id number] Shahriar Cook MD Discharge Disposition: Home or Self Care Social History Tobacco Use Types Packs/Day Years Used Date Smoking Tobacco: Never Assessed Sex and Gender Information Value Date Recorded Sex Assigned at Not on file Gender Identity Not on file Sexual Orientation Not on file documented as of this encounter Last Filed Vital Signs Vital Sign Reading Time Taken Comments Blood Pressure 134/73 10/11/2015 1:10 PM CLINICAL IMMUNOLOGIST Pulse 64 10/11/2015 1:10 PM CLINICAL IMMUNOLOGIST Temperature 36.4 ??C (97.6 ??F) 10/11/2015 9:05 AM CS T Respiratory Rate 18 10/11/2015 1:10 PM CLINICAL IMMUNOLOGIST Oxygen Saturation - - Inhaled Oxygen Concentration - - Weight 79.4 kg (175 lb) 10/11/2015 9:05 AM CLINICAL IMMUNOLOGIST Height - - Body Mass Index 32.01 09/27/2015 9:07 AM CLINICAL IMMUNOLOGIST documented in this encounter Progress Notes * Lamar Orozco RN - 10/11/2015 1:02 PM CST INFUSIONS Blanca Nam [id number] 10/11/2015 BP 146/76 mmHg Pulse 69 Temp(Src) 97.6 ??F Resp 18 Wt 79.379 kg (175 lb) @ MEDICATIONS FOR CURRENT ENCOUNTER: 300 mg Remicade in 250 CC Normal Saline x 3 hours ?? Number of 24 gauge 1 inch placed in Right antecubital ?? 1 attempt(s). This is patients 2nd Remicade infusion. Tolerated well and monitored throughout. Last OV:July 2015 @ [facility] Next Office Visit:11/08/2015 Routine labs done at [facility]. Patient monitored throughout procedure. Tolerated well? Yes Next treatment? 4 weeks Lamar Orozco RN ICAL IMMUNOLOGIST documented in this encounter Plan of Treatment [...] at 10-250 mL/hr, Intravenous, CONTINUOUS, Starting on Sat10/11/15 at 0945, Until Sat10/11/15 at 1144, Refrigerate. Use with in-line filter. $ New Bag/Syringe 10/11/2015 10:06 AM CLINICAL IMMUNOLOGIST 300 mg 125 mL/hr documented in this encounter Care Teams Newspaper Carrier Relationship Specialty Start Date End Date Akin Coyne MD [address] [place] [address] PCP - General Family Medicine 07/19/15 documented as of this encounter
--- OUTSIDE RECORDS SUMMARY | 2024-09-22 02:09 | XMS_ITS | Encounter Summary ---
Author Organization [facility] Address [address] [facility] [place] [address] Care Team Providers Care Therapist Occupational Name Role Phone Akin Coyne MD Primary Care Provider [phone] Encounter Details Date Type Department Care Team (Latest Contact Info) Description 07/19/2015 3:05 PM UX DESIGN MANAGER Hospital Encounter [facility] Imaging Services - Radiology [address] [place] [address] Shahriar Cook MD Discharge Disposition: Home [...] Name Priority Date/Time Associated Diagnosis Comments XR PELVIS 1 OR 2VW Routine 07/19/2015 3: 45 PM UX DESIGN MANAGER Back pain, unspecified location Polyarthritis documented in this encounter Results * XR PELVIS 1 OR 2 VW (07/19/2015 3:45 PM UX DESIGN MANAGER) Anatomical Region Laterality Modality Pelvis Radiographic Kourtney ging 07/19/2015 3:52 PM UX DESIGN MANAGER Narrative 07/19/2015 4:28 PM UX DESIGN MANAGER 3 VIEWS SACROILIAC JOINTS AP PELVIS SINGLE [...] unspecified documented in this encounter Care Teams Therapist Occupational Relationship Specialty Start Date End Date Akin Coyne MD [address] [place] [address] PCP - General Family Medicine 07/19/15 documented as of this encounter
--- OUTSIDE RECORDS SUMMARY | 2024-09-22 02:09 | XMS_ITS | Encounter Summary ---
Author Organization [facility] Address [address] [facility] [place] [address] Care Team Providers Care Automotive Fuel Systems Converter Name Role Phone Akin Coyne MD Primary Care Provider [phone] Adan Umana MD Unavailable [phone] Encounter Details Date Type Department Care Team (Latest Contact Info) Description 07/10/2022 Travel Social History Tobacco Use Types Packs/Day [...] on filedocumented in this encounter Care Teams Automotive Fuel Systems Converter Relationship Specialty Start Date End Date Akin Coyne MD [address] [place] [address] PCP - General Family Medicine 07/19/15 [place] [address] [address] Physical Medicine and Rehabilitation 01/23/18 documented as of this encounter
--- OUTSIDE RECORDS SUMMARY | 2024-09-22 02:09 | XMS_ITS | Encounter Summary ---
Author Organization [facility] Address [address] [facility] [place] [address] Care Team Providers Care Fruit Packer Name Role Phone Akin Coyne MD Primary Care Provider [phone] Adan Umana MD Unavailable [phone] Encounter Details Date Type Department Care Team (Latest Contact Info) Description 01/27/2018 8:03 AM CDT - 01/27/2018 11:59 PM CDT Hospital Encounter [facility] Pain Care [id number] [place] [address] [place] [address] [address] Discharge Disposition: Home or Self Care Social History Tobacco Use Types Packs/Day Years Used Date Smoking Tobacco: Every Day Smokeless Tobacco: Never Sex and Gender Information Value Date Recorded Sex Assigned at Not on file Gender Identity Not on file Sexual Orientation Not on file documented as of this encounter Last Filed Vital Signs Vital Sign Reading Time Taken Comments Blood Pressure 131/73 01/27/2018 8:56 AM CDT Pulse 86 01/27/2018 8:56 AM CDT Temperature - - Respiratory Rate 16 01/27/2018 8:56 AM CDT Oxygen Saturation 95% 01/27/2018 8:56 AM CDT Inhaled Oxygen Concentration - - Weight - - Height - - Body Mass Index - - documented in this encounter Discharge Instructions * Patient Instructions* Josy Khan RN - 01/27/2018 8:14 AM CDT [facility] Pain Discharge Instructions Selective Epidural Caudal Epidural Facet Joint Sacroiliac Joint Epidural Steroid Steroid Injection Steroid Injection Injection Injection Injection Special Instructions: No soaking in water for 48 hours. Use ice pack today, 15 minutes out of everyhour until bedtime as needed. In the morning use a heating pad on low or warm shower, as needed. Then use ice or heat whichever works best for you. Your pain may become worse the first 24 to 48 hours. The injection will not take effect for 1 to 7 days with the average of about 72 hours. If you have fever, chills, severe headache, or any other problems, please call [phone] or after hours callDr. Trent at [phone] and tell them your physician's name. The exchange will alert the physician clinical consultant. If sedation is given: No sedation given. For Your Next Visit: No additional instructions. Other Instructions: May remove band-aid in 12 Hours. Return in 2 weeks or as directed for follow up. Complete and return pain log in One week. documented in this encounter Medications at Time [...] by mouth at bedtime 01/30/2022 nystatin (MYCOSTATIN) 249266 UNIT/ML suspension SHAKE LQ AND TK 5 ML PO QID FOR 14 DAYS PRN 0 10/07/2017 01/30/2022 ondansetron, disintegrating, (ZOFRAN ODT) 4 MG tablet Take 4 mg by mouth every 6 hours as needed Allow tablet to dissolve on the tongue 01/30/2022 triamterene-hydroCHLO ROthiazide (DYAZIDE) 37.5-25 MG capsule Take 1 capsule by mouth once daily 01/30/2022 documented as of this encounter H&P Notes * Adan Umana MD - 01/27/2018 8:11 AM CDT Short Stay History and Physical Blanca Nam 1945 Diagnosis/Impression Bilateral sacroiliac joint dysfunction Indications for Surgical Procedure/Present Complaint Bilateral sacroiliac joint pain No past medical history on file. No past surgical history on file. Social History Social History ??? Marital status: Spouse name: N/A ??? Number of children: N/A ??? Years of education: N/A Occupational History ??? Not on file. Social History Main Topics ??? Smoking status: Not on file ??? Smokeless tobacco: Not on file ??? Alcohol use Not on file ??? Drug use: Not on file ??? Sexual activity: Not on file Other Topics Concern ??? Not on file Social History Narrative No family history on file. Allergies Allergen Reactions ??? Keflex [Cephalexin] Swelling (Not in a hospital admission) Review of Systems Negative except for: Back pain Exam of Affected Body Area As per note. documented in this encounter Procedure Notes * Adan Umana MD - 01/27/2018 9:12 AM CDTAssociated Order(s): PAIN MANAGEMENT PROCEDURE TIME Bilateral Sacroiliac Joint Injection Under Fluoroscopy Blanca Nam [id number] 01/27/2018 Allergies Allergen Reactions ??? Keflex [Cephalexin] Swelling Procedure: Bilateral Sacroiliac Joint Injection Under Fluoroscopy Indication for Procedure:SI Joint pain/DJD of SI Joint/ SI Joint Dysfunction M46.1, M53.3 Informed Consent: After the patient, Blanca Nam, was informed of the risks and benefits of the procedure and all questions were answered, the consent was signed. Prep:Patient identified, proper procedure and site verified, marked by Dr. Trent. In the prone position,left sacroiliac joint was identified under fluoroscopy and marked on the patient's skin. The skin was prepped in a routine sterile fashion using chloroprep. Under pulsed fluoroscopy, a 25 gauge, 3 1/2 inch spinal needle was slowly inserted towards the leftsacroiliac joint after 1 % lidocaine MPF was used to anesthetize the skin, subcutaneous tissue and the muscle overlying the area. Once the tip of the needle was in proper position, 1 ml of Kenalog 40mg per ml and 1.0 ml of 1 % lidocaine was injected in a slow, incremental fashion after aspiration revealed no blood return. The needle was removed, the skin was cleaned, and ensured no bleeding was noted. The procedure was repeated on the right side. Total Lidocaine : 4.0ml Total Kenalomg The patient tolerated the procedure well without complications. Vital signs stable. Injection site clean, dry, and intact. Post procedure instructions were given to the patient and follow up appointment was confirmed. The patient was discharged with information on how to reach the clinic at any time for questions or concerns. Patient ambulatory, denies complaints, DC to home. Procedure codes: 47854 Adan Umana MD documented in this encounter Plan of Treatment Not on file documented as of this encounter Procedures Procedure Name Priority Date/Time Associated Diagnosis Comments PAIN MANAGEMENT PROCEDURE TIME Routine 01/27/2018 8:53 AM CDT Chronic SI joint pain documented in this encounter Results * PAIN MANAGEMENT PROCEDURE TIME (01/27/2018 8:53 AM CDT) Anatomical Region Laterality Modality X-Ray Angiograph y Narrative 01/27/2018 9:14 AM CDT Adan Umana MD ? 01/27/2018 ??9:14 AM Bilateral Sacroiliac Joint Injection Under Fluoroscopy Blanca Denton Cyril [id number] 01/27/2018 Allergies Allergen Reactions ? ? Keflex [...] denies complaints, DC to home. Procedure codes: 91147 Adan Umana MD ?? Adan Umana MD DIAGNOSTIC IMAGING O RDERABLES documented in this encounter Visit Diagnoses Diagnosis Chronic SI joint pain Disorders of sacrum documented in this encounter Administered Medications Inactive Administered Medications - up to 3 most recent administrations Medication Order MAR Action Action Date Dose Rate Site lidocaine (XYLOCAINE MPF) 1 % injection Infiltration, ONCE, 1 dose, On Sat01/27/18 at 0845 $ Admin. by Other Provider 01/27/2018 8:35 AM CDT 100 mg triamcinolone acetonide (KENALOG-40) injection 40 mg 40 mg, Intramuscular, ONCE, 1 dose, On Sat01/27/18 at 0845, Shake well before using. $ Admin. by Other Provider 01/27/2018 8:34 AM CDT 80 mg SI Joint documented in this encounter Care Teams Fruit Packer Relationship Specialty Start Date End Date Akin Coyne MD [address] [place] [address] PCP - General Family Medicine 07/19/15 [place] [address] [address] Physical Medicine and Rehabilitation 01/23/18 documented as of this encounter
--- OUTSIDE RECORDS SUMMARY | 2024-09-22 02:09 | XMS_ITS | Encounter Summary ---
Author Organization [facility] Health Address [address] [facility] [place] [address] Care Team Providers Care Dental Technician Instructor Name Role Phone Akin Coyne MD Primary Care Provider [phone] Adan Umana MD Unavailable [phone] Encounter Details Date Type Department Care Team (Latest Contact Info) Description 01/27/2018 8:00 AM CDT - 01/27/2018 8:02 AM T Hospital Encounter [facility] Pain Care [address] [place] [address] [place] [address] [address] Discharge Disposition: Home or Self [...] by mouth at bedtime 01/30/2022 nystatin (MYCOSTATIN) [id number] UNIT/ML suspension SHAKE LQ AND TK 5 [...] on filedocumented in this encounter Care Teams Dental Technician Instructor Relationship Specialty Start Date End Date Akin Coyne MD [address] [place], [place] [id number] PCP - General Family Medicine 07/19/15 [place] [address] [address] [address] Physical Medicine and Rehabilitation 01/23/18 documented as of this encounter
--- OUTSIDE RECORDS SUMMARY | 2024-09-22 02:09 | XMS_ITS | Encounter Summary ---
Author Organization [facility] Health Address [address] [place] [address] Care Team Providers Care Wastewater Operator Name Role Phone Akin Coyne MD Primary Care Provider [phone] Adan Umana MD Unavailable Reason for Referral * Radiology Services (Routine) - Closed Specialty Diagnoses / Procedures Referred By Contac t Referred To Contact Diagnoses Ankylosing spondylitis of multiple sites in spine (HCC) Tobacco use disorder Pain of upper abdomen Procedures XR HIPS BILATERAL 2 VW W AP PELVIS Shahriar Cook MD Referral ID Status Reason Start Date Expiration Date Visits Re quested Visits Authorized [id number] Closed 05/13/2018 11/09/2018 1 1 Reason for Visit * Radiology Services (Routine) - Closed Specialty Diagnoses / Procedures Referred By Contac t Referred To Contact Diagnoses Ankylosing spondylitis of multiple sites in spine (HCC) Tobacco use disorder Pain of upper abdomen Procedures XR HIPS BILATERAL 2 VW W AP PELVIS Shahriar Cook MD Referral ID Status Reason Start Date Expiration Date Visits Re quested Visits Authorized [id number] Closed 05/13/2018 11/09/2018 1 1 Encounter Details Date Type Department Care Team (Latest Contact Info) Description 05/13/2018 8:51 AM CDT - 05/13/2018 11:59 PM CDT Hospital Encounter [facility] Health Imaging Services - Radiology [address] [place], [place] [id number] Shahriar Cook MD Discharge Disposition: Home or [...] by mouth at bedtime 01/30/2022 nystatin (MYCOSTATIN) [id number] UNIT/ML suspension SHAKE LQ AND TK 5 [...] Priority Date/Time Associated Diagnosis Comments XR PELVIS W BILAT HIP 2VW Routine 05/13/2018 9:00 AM CDT Ankylosing spondylitis of multiple sites in spine (HCC) Tobacco use disorder Pain of upper abdomen documented in this encounter Results * XR HIPS BILATERAL 2 VW W AP PELVIS (05/13/2018 9:00 AM CDT) Anatomical Region Laterality Modality Pelvis, Lower Extremity Radiogra [facility] Imaging 05/13/2018 9:33 AM CDT Impressions 05/13/2018 [...] AM Shahriar Cook MD DIAGNOSTIC IMAGING O RDERABLES documented in this encounter Visit Diagnoses Diagnosis Ankylosing spondylitis of multiple sites in spine (HCC) Ankylosing spondylitis Tobacco use disorder Pain of upper abdomen Abdominal pain, other specified site documented in this encounter Care Teams Wastewater Operator Relationship Specialty Start Date End Date Akin Coyne MD [address] [place] [address] PCP - General Family Medicine 07/19/15 [place] [address] [address] Physical Medicine and Rehabilitation 01/23/18 documented as of this encounter
--- OUTSIDE RECORDS SUMMARY | 2024-09-22 02:09 | XMS_ITS | Encounter Summary ---
Author Organization [facility] Address [address] [place] [address] Care Team Providers Care Manager Salt Name Role Phone Akin Coyne MD Primary Care Provider [phone] Adan Umana MD Unavailable [phone] Reason for Referral * OP/Amb RFL Auth (Routine) - Closed Specialty Diagnoses / Procedures Referred By Contac t Referred To Contact Diagnoses Primary osteoarthritis of left knee Procedures ND DRAIN/INJECT LARGE [place] [address] [address] Referral ID Status Reason Start Date Expiration Date Visits Re quested Visits Authorized [id number] Closed 05/29/2022 05/29/2023 1 1 Reason for Visit * Reason Comments Pain Knee Revisit. Left knee p ain. Patient would like an injection today. Last inj. 01/30/22. Encounter Details Date Type Department Care Team (Latest Contact Info) Description 05/29/2022 11:00 AM CDT Office Visit [facility] Orthopedics [address] [place] [address], [facility] [address] [place] [id number] [place] [address] [address] [address] Primary osteoarthritis of left knee (Primary Dx) Social History Tobacco Use Types Packs/Day Years Used Date Smoking Tobacco: Former Cigarettes Q uit: 11/16/2018 Smokeless Tobacco: Never Sex and Gender Information Value Date Recorded Sex Assigned at Not on file Gender Identity Not on file Sexual Orientation Not on file documented as of this encounter Progress Notes * Kamaljit Alfredo PA-C - 05/29/2022 11:52 AM CDT Ankylosis spondylitis b-b mjl left cs inj * Marely Craig MA - 05/29/2022 11:11 AM CDT Revisit. Left knee pain. Patient would like an injection today. Last inj. 01/30/22. documented in this encounter H&P Notes * Kamaljit Alfredo PA-C - 06/03/2022 9:42 PM CDT DATE OF SERVICE: 05/29/2022 SUBJECTIVE: Patient is here at the office for left knee. She would like to get the left knee injected today. She does have an underlying history of ankylosis spondylitis. The injections are only lasting short-term. We are going to inject her knee today and see how she improves with her function and re-evaluate this. CLINICAL EXAMINATION: Good range of motion of the hips. The left knee varus knee with medial and lateral joint line crepitation, clicking, mid flexion instability. IMPRESSION: Degenerative joint disease, left knee with an underlying history of ankylosing spondylitis. PLAN: Under sterile preparation, injected the left knee today with 3 cc Lidocaine and 1 cc of 80 mg Depo-Medrol. Patient tolerated the procedure well. We will see her back in the office in about 6 weeks and re-evaluate this. DEVEN Jewell M.D. PARAMJIT/Dara #: [id number] cc: Alex Coyne documented in this encounter Miscellaneous Notes * Addendum Note - Liza Rowley CPC - 06/07/2022 4:13 AM CDTAddended by: LIZA ROWLEY on: 06/07/2022 04:13 AM Modules accepted: Level of Service documented in this encounter Plan of Treatment Not on file documented as of this encounter Visit Diagnoses Diagnosis Primary osteoarthritis of left knee- Primary Primary localized osteoarthrosis, lower leg documented in this encounter Administered Medications Inactive Administered Medications - up to 3 most recent administrations Medication Order MAR Action Action Date Dose Rate Site lidocaine PF (Xylocaine MPF) 1 % injection 3 mL 3 mL, Intra-articular, ONCE, 1 dose, On Sat05/29/22 at 1130 $ Given 05/29/2022 2:53 PM CDT 3 mL Left Knee methylPREDNISolone acetate (DEPO-Medrol) injection 80 mg 80 mg, Intra-articular, ONCE, 1 dose, On Sat05/29/22 at 1130 $ Given 05/29/2022 2:54 PM CDT 80 mg Left Knee documented in this encounter Care Teams Manager Salt Relationship Specialty Start Date End Date Akin Coyne MD [address] [place] [address] PCP - General Family Medicine 07/19/15 [place] [address] [address] Physical Medicine and Rehabilitation 01/23/18 documented as of this encounter
--- OUTSIDE RECORDS SUMMARY | 2024-09-22 02:09 | XMS_ITS | Encounter Summary ---
Author Organization [facility] Address [address] [place] [address] Phone Care Team Providers Care Geology Scientist Name Role Phone Gagan Coyne MD Primary Care Provider [phone] Reason for Visit * Reason Onset Date Comments Appointment 07/20/2022 Encounter Details Date Type Department Care Team (Late st Contact Info) Description 07/20/2022 Telephone [facility] at [facility] [address] [place] [address] Renea Weber, PT [place] Appointment Social History Tobacco Use Types Packs/Day [...] encounter Miscellaneous Notes * Telephone Encounter - Renea Weber, PT - 07/20/2022 4:10 PM CDT Patient called and cancelled appointment due to shoulder pain limiting her mobility. requested that we call back, so returned call and spoke to patient. She reports that on she was doing her exercises and hurt her shoulder. Not sure which exercise bothered her but her knee also bothered her as well. Reports she has not called her doctor yet because this is something that has been treated in the past and they told her she needs a total shoulder. Reports she plans on wearing a sling for a while to see if it calms down. Discussed the limited use of her arm and how it is impacting her mobility and ability to walk with a walker. Patient reports she is not able to sarah a walker right now. Discussed the importance of keeping up her mobility and addressing her shoulder pain prior to having her scheduled TKR in September and encouraged patient to call the doctor sooner rather than wait to see if there is anything they can do to help her maintain her mobility. Patient reported she is going to wear the sling over the weekend and see if she is able to toleratewt bearing on the walker by Saturday therapy. If not she will cancel her therapy and call the doctor. . documented in this encounter Plan of Treatment Not on file documented as of this encounter Visit Diagnoses Not on filedocumented in this encounter Care Teams Geology Scientist Relationship Specialty Start Date End Date Gagan Coyne MD [address] [place] [address] PCP - General Family Medicine 01/16/20 documented as of this encounter
--- OUTSIDE RECORDS SUMMARY | 2024-09-22 02:09 | XMS_ITS | Encounter Summary ---
Author Organization [facility] Address [address] [facility] [place] [address] Care Team Providers Care Cold Mill Supervisor Name Role Phone Akin Coyne MD Primary Care Provider [phone] Adan Umana MD Unavailable [phone] Reason for Referral * OP/Amb RFL Auth (Routine) - Closed Specialty Diagnoses / Procedures Referred By Contac t Referred To Contact Diagnoses Primary osteoarthritis of left knee Procedures NE DRAIN/INJECT LARGE JOINT/BURSA Amy Simmons PA-C [address] [address] [place] [address] Referral ID Status Reason Start Date Expiration Date Visits Re quested Visits Authorized [id number] Closed 05/22/2023 05/21/2024 1 1 * OP/Amb RFL Auth (Routine) - Closed Specialty Diagnoses / Procedures Referred By Contac t Referred To Contact Diagnoses 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, [address] [place] [address] Amy Simmons PA-C [address] [place] [address] Primary osteoarthritis of left knee (Primary Dx); Primary osteoarthritis of left shoulder; Primary osteoarthritis of right shoulder; Bilateral rotator cuff dysfunction Social History Tobacco Use Types Packs/Day Years [...] - - Weight 86.2 kg (190 lb) 05/22/2023 1:13 PM CDT Height 157.5 cm (5' 2 ) 05/22/2023 1:13 PM CDT Body Mass Index 34.75 05/22/2023 1:13 PM CDT documented in this encounter Progress Notes * Amy Simmons PA-C - 05/22/2023 1:27 PM CDT CHIEF COMPLAINT: 1. Bilateral shoulder [...] arthritis, psoriatic arthritis, and ankylosing spondylitis. Her academic support assistant is Dr. Cook. She also presents today for left knee pain. She has known DJD of the left knee. She reports pain with ambulation. She does receive intermittent steroid injections for her left knee as they provide pain relief. Last injection was over 3 months ago. Presents today discussed the option of repeat steroid injection. PAST MEDICAL HISTORY: Obstructive sleep apnea, rheumatoid [...] empty can bilaterally Negative belly press Negative [place]'s Examination of the left knee reveals that there is mild effusion. Range of motion is 0 to 110 degrees. There is medial joint line tenderness. The knee is stable to varus and valgus stress. There is postive patellar crepitation and no pain with grind. Win maneuver is negative. Kurtis maneuver is negative. There is 5/5 motor strength. Examination of the opposite knee reveals no effusion, symmetric range of motion and no areas of pain or tenderness. The opposite knee is ligamentously stable anteriorly, posteriorly, and to varus andvalgus stress. There is 5/5 motor strength. Sane Score (0-100): 02/20/2023 2:00 PM SANE Score Left Shoulder Score 60 Right Shoulder Score 50 02/20/2023 2:00 PM ASES Score ASES (Left) 48.3 ASES (Right) 41.6 02/20/2023 2:00 PM Simple Shoulder Test (SST) Score SST Score (Left) 8 SST Score (Right) 6 05/22/2023 1:10 PM Patient-Reported Satisfaction Current state satisfactory? No Prior treatment? Yes - non-surgical treatment Function since treatment Slightly Improved Currently taking narcotics? No 05/22/2023 1:11 PM PROMIS Upper Extremity PROMIS UE Function Score 22 (severe dysfunction) 05/22/2023 1:11 PM 01/21/2023 10:46 AM 05/29/2022 11:03 AM PROMIS Pain Interference PROMIS PI Score 72 (severe) 72 (severe) 72 (severe) X-RAY: AP, axillary lateral and outlet radiographs [...] changes 3. Bilateral shoulder rotator cuff dysfunction 4. Left knee DJD PLAN: I reviewed the [...] procedure well and there were no complications. She will continue with HEP. She may return to clinic as needed. * Margoth Ware, Licensed Technical Communication Teacher - 05/22/2023 1:13 PM CDT Bilateral shoulders, last injected 02/20/23 documented in this encounter Plan of Treatment Not on file documented as of this encounter Visit Diagnoses Diagnosis Primary osteoarthritis of left knee- Primary Primary localized osteoarthrosis, lower leg Primary osteoarthritis of left shoulder Primary localized osteoarthrosis, shoulder region Primary osteoarthritis of right shoulder Primary localized osteoarthrosis, shoulder region Bilateral rotator cuff dysfunction documented in this encounter Administered Medications Inactive Administered Medications - up to 3 most recent administrations Medication Order MAR Action Action Date Dose Rate Site lidocaine PF (Xylocaine MPF) 1 % injection 3 mL 3 mL, Intra-articular, ONCE, 1 dose, On Sat05/22/23 at 1415 $ Given 05/22/2023 2:09 PM CDT 3 mL Left Knee lidocaine PF (Xylocaine MPF) 1 % injection 6 mL 6 mL, Intra-articular, ONCE, 1 dose, On Sat05/22/23 at 1415 $ Given 05/22/2023 2:09 PM CDT 6 mL Other see comments triamcinolone acetonide (Kenalog-40) injection 40 mg 40 mg, Intra-articular, ONCE, 1 dose, On Sat05/22/23 at 1415, Shake well before using. $ Given 05/22/2023 2:10 PM CDT 40 mg Left Knee triamcinolone acetonide (Kenalog-40) injection 80 mg 80 mg, Intra-articular, ONCE, 1 dose, On Sat05/22/23 at 1415, Shake well before using. $ Given 05/22/2023 2:10 PM CDT 80 mg Other see comments documented in this encounter Care Teams Cold Mill Supervisor Relationship Specialty Start Date End Date Akin Coyne MD [address] [place] [address] PCP - General Family Medicine 07/19/15 [place] [address] [address] Physical Medicine and Rehabilitation 01/23/18 documented as of this encounter
--- OUTSIDE RECORDS SUMMARY | 2024-09-22 02:09 | XMS_ITS | Encounter Summary ---
Author Organization [facility] Address [address] [facility] [place] [address] Care Team Providers Care Diabetes Specialist Name Role Phone Akin Coyne MD Primary Care Provider [phone] Reason for Visit * Reason Onset Date Comments Reschedule Appointment 09/26/2015 Encounter Details Date Type Department Care Team (Late st Contact Info) Description 09/26/2015 Telephone Infusion Services at [address] [address] Shahriar Cook MD Reschedule Appointment Social History Tobacco Use Types Packs/Day Years Used Date Smoking Tobacco: Never Assessed Sex and Gender Information Value Date Recorded Sex Assigned at Not on file Gender Identity Not on file Sexual Orientation Not on file documented as of this encounter Miscellaneous Notes * Telephone Encounter - Lamar Orozco, RN - 09/26/2015 10:50 AM CST Patient called regarding r/s infusion appointment from 10/04/15 to 09/27/15. Waiting from response from Lidia or Bee to make sure benefits will be OK. CREAM FREEZER documented in this encounter Plan of Treatment Not on file documented as of this encounter Visit Diagnoses Not on filedocumented in this encounter Care Teams Diabetes Specialist Relationship Specialty Start Date End Date Akin Coyne MD [address] [place] [address] PCP - General Family Medicine 07/19/15 documented as of this encounter
--- OUTSIDE RECORDS SUMMARY | 2024-09-22 02:09 | XMS_ITS | Encounter Summary ---
Author Organization [facility] Health Address [address] [facility] [place] [address] Care Team Providers Care Bad Cloth Checker Name Role Phone Akin Coyne MD Primary Care Provider [phone] Encounter Details Date Type Department Care Team (Latest Contact Info) Description 07/19/2015 3:06 PM SENIOR FINANCE MANAGER - 07/19/2015 11:59 PM SENIOR FINANCE MANAGER Hospital Encounter [facility] Imaging Services - Radiology [address] [place], [place] [id number] Shahriar Cook MD Discharge Disposition: Home or Self Care Social History Tobacco Use Types Packs/Day Years Used Date Smoking Tobacco: Never Assessed Sex and Gender Information Value Date Recorded Sex Assigned at Not on file Gender Identity Not on file Sexual Orientation Not on file documented as of this encounter Plan of Treatment Pending Results Name Type Priority Associated Diagnoses Date /Time XR KNEE BILAT MIN 4 VIEWS Imaging Routine Back pain, unspecified location Polyarthritis 07/19/2015 3:49 PM SENIOR FINANCE MANAGER documented as of this encounter Visit Diagnoses Diagnosis Back pain, unspecified location Polyarthritis Unspecified polyarthropathy or polyarthritis, site unspecified documented in this encounter Care Teams Bad Cloth Checker Relationship Specialty Start Date End Date Akin Coyne MD [address] [place] [address] PCP - General Family Medicine 07/19/15 documented as of this encounter
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
--- OUTSIDE RECORDS SUMMARY | 2024-09-22 02:09 | XMS_ITS | Encounter Summary ---
Author Organization [facility] Address [address] [facility] [place] [address] Care Team Providers Care Camp Coordinator Name Role Phone Akin Coyne MD Primary Care Provider [phone] Adan Umana MD Unavailable [phone] Encounter Details Date Type Department Care Team (Late st Contact Info) Description 02/20/2023 1:35 PM CDT Ancillary Procedure [facility] Orthopedics - Radiology [address] [place] [address] [place] [address] [facility] [address] [place] [address] Chronic pain of both shoulders Social History [...] region documented in this encounter Care Teams Camp Coordinator Relationship Specialty Start Date End Date Akin Coyne MD [address] [place] [address] PCP - General Family Medicine 07/19/15 [place] [address] [address] Physical Medicine and Rehabilitation 01/23/18 documented as of this encounter
--- OUTSIDE RECORDS SUMMARY | 2024-09-22 02:09 | XMS_ITS | Encounter Summary ---
Author Organization [facility] Address [address] [place] [address] Care Team Providers Care Radiation Protection Specialist Name Role Phone Akin Coyne MD Primary Care Provider [phone] Adan Umana MD Unavailable [phone] Encounter Details Date Type Department Care Team (Latest Contact Info) Description 02/23/2020 11:15 AM CDT - 02/23/2020 11:59 PM T Hospital Encounter [facility] Imaging Services - Radiology [address] [place], [place] [id number] Shahriar Cook MD Discharge Disposition: Home or [...] by mouth at bedtime 01/30/2022 nystatin (MYCOSTATIN) [id number] UNIT/ML suspension SHAKE LQ AND TK 5 [...] Priority Date/Time Associated Diagnosis Comments XR SHOULDER LEFT 2VW OR MORE Routine 02/23/2020 11:35 AM CDT Fall, initial encounter documented in this encounter Results * XR SHOULDER 2+ VW LEFT (02/23/2020 [...] consistent with grade 2 osteoarthrosis. Procedure Note Misha Martinez MD - 02/23/2020 Left Shoulder 3 [...] encounter documented in this encounter Care Teams Radiation Protection Specialist Relationship Specialty Start Date End Date Akin Coyne MD [address] [place] [address] PCP - General Family Medicine 07/19/15 [place] [address] [place] [address] Physical Medicine and Rehabilitation 01/23/18 documented as of this encounter
--- OUTSIDE RECORDS SUMMARY | 2024-09-22 02:09 | XMS_ITS | Encounter Summary ---
Author Organization [facility] Address [address] [place] [address] Care Team Providers Care Central Sterilization Technician Name Role Phone Akin Coyne MD Primary Care Provider [phone] Adan Umana MD Unavailable Reason for Referral * OP/Amb RFL Auth (Routine) - Closed Specialty Diagnoses / Procedures Referred By Contac t Referred To Contact Diagnoses Primary osteoarthritis of left knee Procedures ID DRAIN/INJECT LARGE JOINT/BURSA Maximo Marina, MAINSPRING TORQUE TESTER-SR. DIRECTOR PRODUCT MANAGEMENT [id number] [facility] [address] [place] [id number] Referral ID Status Reason Start Date Expiration Date Visits Re quested Visits Authorized [id number] Closed 01/21/2023 01/21/2024 1 1 Electronically signed by Maximo Marina MAINSPRING TORQUE TESTER-SR. DIRECTOR PRODUCT MANAGEMENT at 01/21/2023 11:16 AM CDT Reason for Visit * Reason Comments Pain Knee Left knee pain, want s injection Encounter Details Date Type Department Care Team (Latest Contact Info) Description 01/21/2023 11:00 AM CDT Office Visit [facility] [address] [facility], [address] [place] [address] Maximo Marina, MAINSPRING TORQUE TESTER-SR. DIRECTOR PRODUCT MANAGEMENT [id number] [facility] [address] [place] [address] Primary osteoarthritis of left knee (Primary Dx) [...] as of this encounter Progress Notes * Maximo Marina APRN-CNP - 01/21/2023 12:41 PM CDT Steroid Injections Blanca Nam [id number] 01/21/2023 Location: [facility] History: Blanca Nam presents to the office today with pain in left knee(s). Patient has been injected in our office previously. Patient was previously on the surgery schedule but cancelled her surgery. Patient states her shoulders have been giving her increased discomfort and she does not know if she should have her shoulders addressed before TKA. Physical Examination: Patient has varus knee with mid flexion instability. Medial joint line tenderto palpation with crepitation,clicking on range of motion. Radiographs: Weight bearing AP, lateral, and merchant views demonstrate left knee (s) DJD. Impression: left knee(s) degenerative joint disease. Plan: Patient was counseled on possible treatment options, benefits, and risks of each treatment were discussed. Patient elected for injection in the office today. I injected patient left knee(s) medial compartment, using sterile technique. The patient was prepped with betadine and injected with 3 mls of lidocaine and 1 mls (80mg) of Depo-Medrol. Injection was tolerated well by the patient. We will see patient back PRN. Patient was educated that the next available steroid injection is 3-4 months from today. Patient encouraged to get her shoulders evaluated. I educated the patient on knee rehabilitation and the use of a walker post TKA. JORDYN Roy * Raquel Mera - 01/21/2023 11:02 AM CDT Left knee pain, wants injection documented in this encounter Plan of Treatment [...] 3 mL, Intra-articular, ONCE, 1 dose, On Sat01/21/23 at 1130 $ Given 01/21/2023 12:20 PM CDT 3 mL Left Knee methylPREDNISolone acetate (DEPO-Medrol) injection 80 mg 80 mg, Intra-articular, ONCE, 1 dose, On Sat01/21/23 at 1130 $ Given 01/21/2023 12:20 PM CDT 80 mg Left Knee documented in this encounter Care Teams Central Sterilization Technician Relationship Specialty Start Date End Date Akin Coyne MD [address] [place] [address] PCP - General Family Medicine 07/19/15 [place] [address] [address] Physical Medicine and Rehabilitation 01/23/18 documented as of this encounter
--- OUTSIDE RECORDS SUMMARY | 2024-09-22 02:10 | XMS_ITS | Encounter Summary ---
Author Organization [facility] Address [address] [place] [address] Care Team Providers Care Adapted Physical Education Teacher Name Role Phone Unavailable Primary Care Provider Unavailabl e Encounter Details Date Type Department Care Team (Late st Contact Info) Description 10/20/2001 Outpatient Historical [facility] AUDIOLOGY Fadia Peralta MD [address] [facility] [address] [place] [address] MYOPATHY NOS (Primary Dx) Social History Tobacco Use Types Packs/Day Years Used Date Smoking Tobacco: Never Assessed Sex and Gender Information Value Date Recorded Sex Assigned at Not on file Gender Identity Not on file Sexual Orientation Not on file documented as of this encounter Plan of Treatment Not on file documented as of this encounter Visit Diagnoses Diagnosis Myopathy, unspecified- Primary documented in this encounter
--- OUTSIDE RECORDS SUMMARY | 2024-09-22 02:10 | XMS_ITS | Encounter Summary ---
Author Organization [facility] Address [address] [place] [address] Phone Care Team Providers Care Green Chain Operator Name Role Phone Gagan Coyne MD Primary Care Provider [phone] Reason for Visit * Reason Comments COVID-19 Encounter Details Date Type Department Care Team (Latest Contact Info) Description 01/16/2020 10:20 AM CDT Clinical Support [facility] [address] [place] [address] Nurse, Adria Dyer [facility] [place] Cough (Primary Dx); Shortness of breath Discharge Disposition: Discharged to home or Selfcare Social History Tobacco Use Types Packs/Day Years Used Date Smoking Tobacco: Never Assessed Comments Unknown Sex and Gender Information Value Date Recorded Sex Assigned at Not on file Legal Sex Female 7:08 PM CDT Gender Identity Not on file Sexual Orientation Not on file COVID-19 Exposure Response Date Recorded In the last month, have you been in contact with someone who was confirmed or suspected to have Coronavirus / COVID-19? No / Unsure 01/16/2020 8:26 AM CDT documented as of this encounter Progress Notes * Amy Marks RN - 01/16/2020 10:20 AM CDT Patient presents to prompt care in her car for drive up nasopharyngeal COVID 19 swab. right nare swabbed with no difficulty and patient tolerated well. Written instruction given on care at home, home isolation, and symptoms that would require an ER visit. Assistance with COVID 19 swab done by Destiny Storey APN, TYPING CHECKER COVID specimen sent to [facility] documented in this encounter Plan of Treatment Not on file documented as of this encounter Visit Diagnoses Diagnosis Cough- Primary Shortness of breath documented in this encounter Additional Health Concerns Infection Onset Date Last Indicated Resolved Time COVID - 19 01/16/2020 01/16/2020 01/18/2020 1:27 PM CDT documented as of this encounter Care Teams Green Chain Operator Relationship Specialty Start Date End Date Gagan Coyne MD [address] [place] [address] PCP - General Family Medicine 01/16/20 documented as of this encounter
--- OUTSIDE RECORDS SUMMARY | 2024-09-22 02:10 | XMS_ITS | Clinical Summary ---
Author Organization [facility] Address [address] [facility] Attn: Epic Prelude ADT [place] [address] Care Team Providers Care Senior Insight Manager International Name Role Phone Unavailable Primary Care Provider Unavailabl e Social History Tobacco Use Types Packs/Day Years Used Date Smoking Tobacco: Never Assessed Sex and Gender Information Value Date Recorded Sex Assigned at Not on file Gender Identity Not on file Sexual Orientation Not on file Plan of Treatment Health Maintenance Due Date Last Done Comments DTAP/TDAP/TD VACCINES (1 - Tdap) 1964 ZOSTER VACCINE (1 of 2) 11/16/1995 OSTEOPOROSIS SCREENING 2010 PNEUMOCOCCAL VACCINE 65+ YEARS (1 of 1 - PCV) 11/16/19 11 RSV VACCINE (60+ or ) (1 - 1-dose 75+ series) 2020 INFLUENZA VACCINE (#1) 2024
--- OUTSIDE RECORDS SUMMARY | 2024-09-22 02:10 | XMS_ITS | Encounter Summary ---
Author Organization [facility] Address [address] [place] [address] Care Team Providers Care Ordinary Seaman Name Role Phone Unavailable Primary Care Provider Unavailabl e Encounter Details Date Type Department Care Team (Late st Contact Info) Description 11/03/2001 Outpatient Historical HIS MRI DEPT (Excluded Provider) [place] [address] [facility] [address] [place] [address] LUMB/LUMBOSAC DISC DEGEN (Primary Dx) Social History Tobacco Use Types Packs/Day Years Used Date Smoking Tobacco: Never Assessed Sex and Gender Information Value Date Recorded Sex Assigned at Not on file Gender Identity Not on file Sexual Orientation Not on file documented as of this encounter Plan of Treatment Not on file documented as of this encounter Visit Diagnoses Diagnosis Degeneration of lumbar or lumbosacral intervertebral disc- Primary documented in this encounter
--- OUTSIDE RECORDS SUMMARY | 2024-09-22 02:10 | XMS_ITS | Encounter Summary ---
Author Organization [facility] Address [address] [place] [address] Phone Care Team Providers Care Jingle Writer Name Role Phone Gagan Coyne MD Primary Care Provider [phone] Reason for Visit * Reason Onset Date Comments Appointment 07/04/2022 Encounter Details Date Type Department Care Team (Late st Contact Info) Description 07/04/2022 Telephone [facility] at [facility] [address] [place] [address] Devang Hurt, MARGAR[place] Appointment Social History Tobacco Use Types Packs/Day [...] suspected to have Coronavirus/COVID-19? No / Unsure 07/02/2022 2:30 PM CDT documented as of this encounter Miscellaneous Notes * Telephone Encounter - Devang Hurt PTA - 07/04/2022 1:05 PM CDT ----- Message from Jesusita Chicas sent at 07/04/2022 11:36 AM CDT ----- Regarding: Cancellation Blanca cancelled her 2pm appointment with you today due to illness. Thanks! documented in this encounter Plan of Treatment Not on file documented as of this encounter Visit Diagnoses Not on filedocumented in this encounter Care Teams Jingle Writer Relationship Specialty Start Date End Date Gagan Coyne MD [address] [place] [address] PCP - General Family Medicine 01/16/20 documented as of this encounter
--- OUTSIDE RECORDS SUMMARY | 2024-09-22 02:10 | XMS_ITS | Encounter Summary ---
Author Organization [facility] Address [address] [place] [address] Phone Care Team Providers Care Veneer Clipper Name Role Phone Gagan Coyne MD Primary Care Provider [phone] Encounter Details Date Type Department Care Team (Late st Contact Info) Description 07/13/2022 1:00 PM CDT Physical Therapy [facility] at [facility] [address] [facility], [address] [place] [phone] Provider, Not On File Hugh Rosales MD [address] [facility] [address] [facility] [address] [place] [address] Nayely Dillard PTA [place] Discharge Disposition: Discharged to home or Selfcare [...] as of this encounter Miscellaneous Notes * Plan of Care - Nayely Dillard PTA - 07/13/2022 1:00 PM CDT Treatment Note - Electronically signed by: NAYELY DILLARD, CORE CUTTER AND REAMER July 15, 2022 SUBJECTIVE: There have not been any medication changesPt reports she has been tryingf to use her wheeled walkerat home but is not comfortable with it yet. Pt reports she has been doing her exercises at home. Objective TREATMENT: Refer to PT OP Rehab Therapy Treatment flowsheet for details/minutes. Home Exercises distributed via handout. [employer] information: Access Code: [email or web address] URL: [email or web address] Date: 06/27/2022 Prepared by: Nayely Dillard Exercises Seated Ankle Dorsiflexion AROM - 3 x daily - 7 x weekly - 2 sets - 10 reps Seated Heel Raise - 1 x daily - 7 x weekly - 15 reps - 2 sets Seated March - 3 x daily - 7 x weekly - 2 sets - 10 reps Seated Long Arc Quad - 3 x daily - 7 x weekly - 2 sets - 10 reps Seated Isometric Hip Adduction with Ball - 3 x daily - 7 x weekly - 2 sets - 10 reps Seated Hip Abduction with Resistance - 3 x daily - 7 x weekly - 2 sets - 10 reps Seated Single Leg Hip Abduction with Resistance - 3 x daily - 7 x weekly - 2 sets - 10 reps Gait: Pt ambulated around the gym using her front wheeled walker. Pt had difficulty making turns and kept picking her walker off of the ground. Pt was advised to keep all four points on the ground when going around corners. Pt needed verbal cues to stay closer to her walker when walking and especially when turning to sit. Pt needed verbal cues to stay between the walker uprights and not walk outsides of it when going to sit. Patient response to new home exercises provided today: no increase in pain Interventions provided this session: therex Therapist provided Education and Skilled therapy by instructed pt on how to use a 2 wheeled walker.Pt brought in all of her previous HEPs she had been given at her different therapies. Consolidated exercises and advised pt to perform HEP 2x a day. ASSESSMENT: Other Details: Patient demonstrates limited progress as evidenced by having difficulty walking in her home. Reviewed walker safety with pt and consolidated HEP Patient would benefit from continued skilled interventions, as stated in the plan of care, due to the following functional limitations:pain and decreased safety with transfers, walking to get to the bathroom and around in her home and community, difficulty getting in and out of the car, difficulty with getting dressed and bathing, and frequent falls making it difficult for her to leave her alone in the home for extended amounts of time. ?? All charges entered today are appropriate and separate from each other. PLAN Goals to be achieved by discharge. Patient will demonstrate the followin. Patient to ambulated 250 feet with least restrictive device modified independent with good safety to be able to navigate her home and get out to the car to go out in the community. 2. Patient to ascend and descend 4 steps mod ind to safely get into her home. 3. Patient to demonstrate improved glut med and glut max strength to 3+/5 to improve ability to go up and down steps and to get up out of a chair without assist. 4. Patient to perform 7 sit to stands in the 30 sec sit to stand test to improve mobility and strength 5. Patient to score 22 sec or less on the timed up and go to demonstrate decrease fall risk with ambulation. 6. Patient to be independent with home program to maintain gains made in therapy. Planned Interventions This patient will likely be seen 3x/week for 17 visits from the date of initial evaluation for the following interventions: - Manual techniques including joint mobilizations, MFR, soft tissue massage, IASTM and others as needed for pain relief, soft tissue extensibility and joint mobility (20251) - Therapeutic exercise program for: motion/mobility, strengthening, flexibility, and functional limitations (14685) - Therapeutic activities for functional activity education/training and in home safety recommendations as appropriate (02010) - Neuro Muscular Re-education for body mechanics education and postural re- education as appropriate(13660) - Patient education regarding posture, ergonomics, body mechanics, HEP progression and exercise performance - Individualized home exercise program - Modalities as needed for pain relief, anti-inflammatory effect and soft tissue extensibility - Gait training (87124) - Trigger point dry needling for pain relief and reducing tension in associated musculature (73637 or [address]) Precautions: Ankylosing spondylitis, fall risk Treatment may be altered based on patient progression and symptoms. The plan of care, as well as the benefits and risks of therapy were reviewed with the patient and the patient consented to treatment. . documented in this encounter Plan of Treatment Not on file documented as of this encounter Visit Diagnoses Not on filedocumented in this encounter Care Teams Veneer Clipper Relationship Specialty Start Date End Date Gagan Coyne MD [address] [place] [address] PCP - General Family Medicine 01/16/20 documented as of this encounter
--- OUTSIDE RECORDS SUMMARY | 2024-09-22 02:10 | XMS_ITS | Clinical Summary ---
Author Organization Unknown Care Team Providers Care Extrusion Engineer Name Role Phone IGGY BOOKER, ASHLEY Unavailable Unavailabl e JOSHUA PT, BETSY Unavailable Unavailable MARCELO OT, ABNER Unavailable Unavailable CHELA .NET ARCHITECT, DENVER Unavailable Unavailabl e Payers Payer Name Policy Type Policy Number Effective Date Expira tion Date MEDICARE.[facility] [id number] Problems Condition Name Condition Details Condition Category Status Onset Date Resolution Date Last Treatment Date Treating Clinician Comments URINARY TRACT INFECTION, SITE NOT SPECIFIED Active 2023-09 00:00: 00 ESSENTIAL (PRIMARY) HYPERTENSION Active 09-16 00:00: 00 TYPE 2 DIABETES MELLITUS WITHOUT COMPLICATION S Active - 00:00: 00 CHRONIC OBSTRUCTIVE PULMONARY DISEASE, UNSPECIFIED Active - 00:00: 00 OTHER SEIZURES Active - 00:00: 00 OTHER IDIOPATHIC PERIPHERAL AUTONOMIC NEUROPATHY Active - 00:00: 00 OTHER CHRONIC PAIN Active - 00:00: 00 SPONDYLOSIS W/O MYELOPATHY OR RADICULOPATH Y, CERVICAL REGION Active - 00:00: 00 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 Active - 00:00: 00 AGE-RELATED OSTEOPOROSIS W/O CURRENT PATHOLOGICAL FRACTURE Active - 00:00: 00 RHEUMATOID ARTHRITIS, UNSPECIFIED Active - 00:00: 00 DEFICIENCY OF OTHER SPECIFIED B GROUP VITAMINS Active - 00:00: 00 ANEMIA, UNSPECIFIED Active - 00:00: 00 OBSTRUCTIVE SLEEP APNEA (ADULT) (PEDIATRIC) Active - 00:00: 00 ANXIETY DISORDER, UNSPECIFIED Active - 00:00: 00 FATTY (CHANGE OF) LIVER, NOT ELSEWHERE CLASSIFIED Active 00:00: 00 NICOTINE DEPENDENCE, CIGARETTES, UNCOMPLICATE D Active 09-16 00:00: 00 CONSTIPATION , UNSPECIFIED Active 09-16 00:00: 00 UNSPECIFIED MACULAR DEGENERATION Active 09-16 00:00: 00 GASTRO-ESOPH AGEAL REFLUX DISEASE WITHOUT ESOPHAGITIS Active 09-16 00:00: 00 MIXED HYPERLIPIDEM IA Active 09-16 00:00: 00 VENDOR SPECIALIST (CURRENT) USE OF ANTITHROMBOT ICS/ANTIPLAT ELETS Active 09-16 00:00: 00 VENDOR SPECIALIST (CURRENT) USE OF ASPIRIN Active 09-16 00:00: 00 PRSNL HX OF TIA (TIA), 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 09-16 00:00: 00 HISTORY OF FALLING Active 09-16 00:00: 00 Allergies, Adverse Reactions, Alerts Allergy Name Allergy Type Status Severity Reaction(s) Onset Date Inactive Date Treating Clinician Comments KEFLEX Propensity to adverse reactions Active 2024-09 08:56:4 0 Medications Ordered Medication Name Filled Medication Name Start Date Stop Date Current Medication? Ordering Clinician Indication Dosage Frequency Signature (SIG) Comments Components lorazepam 0.5 mg tablet 2020-09 0-11 00:00: 00 09-14 23:59 :00 No [id number] NEEDED FOR ANXIETY 1 tablet DAILY 1 tablet DAILY (route: oral) Med Classific ation: Central Nervous System Agents pantoprazol e 40 mg tablet,michael yed release 8-02 00:00: 00 09-14 23:59 :00 No [id number] STOMACH 1 tablet DAILY 1 tablet DAILY (route: oral) Med Classific ation: Gastroint estinal Therapy Agents azathioprin e 50 mg tablet 2020-09 0-07 00:00: 00 09-14 23:59 :00 No [id number] ORGAN REJECTION, PAIN 2 tablet DAILY 2 tablet DAILY (route: oral) Med Classific ation: Immunosup pressive Agents amlodipine 5 mg tablet 9-21 00:00: 00 09-14 23:59 :00 No [id number] HTN 1 tablet DAILY 1 tablet DAILY (route: oral) Med Classific ation: Cardiovas cular Therapy Agents trazodone 50 mg tablet 1-14 00:00: 00 09-14 23:59 :00 No [id number] DEPRESSION 2 tablet BEDTIME 2 tablet BEDTIME (route: oral) Med Classific ation: Central Nervous System Agents metoprolol succinate ER 100 mg tablet,exte nded release 24 hr 8-11 00:00: 00 09-14 23:59 :00 No [id number] HTN 1 tablet DAILY 1 tablet DAILY (route: oral) Med Classific ation: Cardiovas cular Therapy Agents gabapentin 300 mg capsule 05-20 00:00: 00 09-14 23:59 :00 No [id number] PAIN 1 capsule 3 TIMES DAILY 1 capsule 3 TIMES DAILY (route: oral) Med Classific ation: Central Nervous System Agents tizanidine 2 mg tablet 15 00:00: 00 09-14 23:59 :00 No [id number] MUSCLE SPASM 1 tablet BEDTIME 1 tablet BEDTIME (route: oral) Med Classific ation: Locomotor System gabapentin 300 mg capsule 2020-09 006 00:00: 00 07-18 00:00 :00 No [id number] Per instruc tions Per instructio ns (route: oral) Med Classific ation: Central Nervous System Agents lamotrigine 100 mg tablet 05-20 00:00: 00 09-14 23:59 :00 No [id number] SEIZURE 1 tablet 2 TIMES DAILY 1 tablet 2 TIMES DAILY (route: oral) Med Classific ation: Central Nervous System Agents duloxetine 60 mg capsule,del ayed release 05-20 00:00: 00 09-14 23:59 :00 No [id number] MOOD, DEPRESSION 2 capsule DAILY 2 capsule DAILY (route: oral) Med Classific ation: Central Nervous System Agents methylpredn isolone 4 mg tablets in a dose pack 2020-09 0-31 00:00: 00 07-18 00:00 :00 No [id number] Per instruc tions Per instructio ns (route: oral) Med Classific ation: Endocrine BD Tuberculin Syringe 1 mL 25 gauge x 5/8 - 00:00: 00 07-18 00:00 :00 No [id number] Per instruc tions Per instructio ns (route: miscellane ous) Med Classific ation: Medical Supplies and Durable Medical Equipment (DME) albuterol sulfate 1.25 mg/3 mL solution for nebulizatio n 2020-09 00:00: 00 09-29 23:59 :00 No [id number] NEEDED FOR SOB 3 mL DAILY 3 mL DAILY (route: inhalation ) Med Classific ation: Respirato ry Therapy Agents Aspirin Low Dose 81 mg tablet,michael yed release 2020-09 00:00: 00 09-14 23:59 :00 No [id number] BLOOD THINNER 1 tablet DAILY 1 tablet DAILY (route: oral) Med Classific ation: Hematolog ical Agents biotin 5,000 mcg disintegrat ing tablet 2020-09 00:00: 00 09-14 23:59 :00 No [id number] SUPPLEMENT 1 tablet DAILY 1 tablet DAILY (route: oral) Med Classific ation: Electroly te Balance-N utritiona l Products Centrum Silver 0.4 mg-300 mcg-250 mcg tablet 2020-09 00:00: 00 09-14 23:59 :00 No [id number] SUPPLEMENT 1 tablet DAILY 1 tablet DAILY (route: oral) Med Classific ation: Electroly te Balance-N utritiona l Products Cosentyx 150 mg/mL subcutaneou s syringe 2020-09 00:00: 00 09-14 23:59 :00 No [id number] ARTHRITIS 150 mg DIRECTED 150 mg DIRECTED (route: subcutaneo us) Med Classific ation: Dermatolo gical metformin 500 mg tablet 2020-09 00:00: 00 09-14 23:59 :00 No [id number] DIABETES MELLITUS 1 tablet DAILY 1 tablet DAILY (route: oral) Med Classific ation: Endocrine methylpredn isolone 4 mg tablets in a dose pack 2020-09 00:00: 00 07-22 23:59 :00 No [id number] ARTHRITIS Per instruc tions DIRECTED Per instructio ns DIRECTED (route: oral) Med Classific ation: Endocrine PreserVisio n AREDS-2 250 mg-90 mg-40 mg-1 mg capsule 2020-09 00:00: 00 09-14 23:59 :00 No [id number] SUPPLEMENT 1 capsule DAILY 1 capsule DAILY (route: oral) Med Classific ation: Alternati ve Therapy Tylenol Extra Strength 500 mg tablet 2020-09 00:00: 00 09-14 23:59 :00 No [id number] PAIN 2 tablet 3 TIMES DAILY 2 tablet 3 TIMES DAILY (route: oral) Med Classific ation: Analgesic , Anti-infl ammatory or Antipyret ic Vitamin D3 50 mcg (2,000 unit) capsule 2020-09 00:00: 00 09-14 23:59 :00 No [id number] SUPPLEMENT 1 capsule DAILY 1 capsule DAILY (route: oral) Med Classific ation: Electroly te Balance-N utritiona l Products Methylpred DP 4 mg tablets in a dose pack 2020-09 00:00: 00 09-29 23:59 :00 No [id number] TO REDUCE SYMPTOMS SUCH PAIN AND SWELLING 4 mg BEFORE MEALS 4 mg BEFORE MEALS (route: oral) Med Classific ation: Endocrine docusate sodium 100 mg capsule 09-22 00:00: 00 09-14 23:59 :00 No [id number] CONSTIPATIO N 1 capsule 2 TIMES DAILY 1 capsule 2 TIMES DAILY (route: oral) Med Classific ation: Gastroint estinal Therapy Agents Flonase Allergy Relief 50 mcg/actuati on nasal spray,suspe nsion 09-22 00:00: 00 09-14 23:59 :00 No [id number] NASAL CONGESTION, ALLERGIES 2 spray 2 TIMES DAILY 2 spray 2 TIMES DAILY (route: nasal) Med Classific ation: Respirato ry Therapy Agents prednisone 10 mg tablet 09-22 00:00: 00 10-04 23:59 :00 No [id number] STEROID 2 tablet DAILY 2 tablet DAILY (route: oral) Med Classific ation: Endocrine Vitamin C 500 mg tablet 09-22 00:00: 00 09-14 23:59 :00 No [id number] VITAMIN C 1 tablet DAILY 1 tablet DAILY (route: oral) Med Classific ation: Electroly te Balance-N utritiona l Products albuterol sulfate HFA 90 mcg/actuati on aerosol inhaler 09-22 00:00: 00 09-14 23:59 :00 No [id number] SHORTNESS OF BREATH. 2 puff EVERY 4 HOURS 2 puff EVERY 4 HOURS (route: inhalation ) Med Classific ation: Respirato ry Therapy Agents Vital Signs Vital Name Observation Time Observation Value Commen ts Temperature 2024-09-18 09:29:00.000 97.8 [degF] BMI (%) 2024-09-18 09:22:45.000 28 kg/m2 Height 2024-09-18 09:22:29.000 61 [in_us] Pulse 2024-09-18 09:29:00.000 60 /min O2 Saturation (%) 2024-09-18 09:29:00.000 98 % Respirations 2024-09-18 09:29:00.000 19 /min Weight (lbs) 2024-09-18 09:22:45.000 150 [lb_av] Systolic Blood Pressure 2024-09-18 09:29:00.000 132 mm [Hg] Diastolic Blood Pressure 2024-09-18 09:29:00.000 66 mm [Hg] Plan of Treatment Planned Activity Planned Date Details Comments Future Scheduled Test AGENCY MAY PERFORM A RESUMPTION OF CARE VISIT FOLLOWING ANY HOSPITAL ADMISSION. PT TO EVALUATE, OBSERVE / ASSESS, AND MONITOR, .NET ARCHITECT TO OBSERVE AND MONITOR, PROVIDE SKILLED THERAPEUTIC INTERVENTION, ACTIVITY, EDUCATION, AND TRAINING TO ADDRESS; [code = AGENCY MAY PERFORM A RESUMPTION OF CARE VISIT FOLLOWING ANY HOSPITAL ADMISSION. PT TO EVALUATE, OBSERVE / ASSESS, AND MONITOR, .NET ARCHITECT TO OBSERVE AND MONITOR, PROVIDE SKILLED THERAPEUTIC INTERVENTION, ACTIVITY, EDUCATION, AND TRAINING TO ADDRESS;] Future Scheduled Test PT / .NET ARCHITECT T O EDUCATE ON HYPERTENSION SELF-MANAGEMENT [code = PT / .NET ARCHITECT TO EDUCATE ON HYPERTENSION SELF-MANAGEMENT] Future Scheduled Test PT / .NET ARCHITECT T O EDUCATE ON COPD SELF-MANAGEMENT [code = PT / .NET ARCHITECT TO EDUCATE ON COPD SELF-MANAGEMENT] Future Scheduled Test PT / .NET ARCHITECT T O EDUCATE ON DIABETES SELF- MANAGEMENT [code = PT / .NET ARCHITECT TO EDUCATE ON DIABETES SELF- MANAGEMENT] Future Scheduled Test PT TO ASSE SS / .NET ARCHITECT TO MONITOR FOR AND REPORT EARLY SIGNS OF ANTICOAGULANT TOXICITY TO THE PHYSICIAN AND/OR THE RN CLINICAL EXTRUDER OPERATOR FOR PHYSICIAN NOTIFICATION AND TO PROVIDE PATIENT/CAREGIVER EDUCATION ON ANTICOAGULANT THERAPY [code = PT TO ASSESS / .NET ARCHITECT TO MONITOR FOR AND REPORT EARLY SIGNS OF ANTICOAGULANT TOXICITY TO THE PHYSICIAN AND/OR THE RN CLINICAL EXTRUDER OPERATOR FOR PHYSICIAN NOTIFICATION AND TO PROVIDE PATIENT/CAREGIVER EDUCATION ON ANTICOAGULANT THERAPY] Future Scheduled Test PT TO ASSE SS / .NET ARCHITECT TO MONITOR CARDIO/RESPIRATORY SYSTEM; AND NOTIFY THE PHYSICIAN AND/OR THE RN CLINICAL EXTRUDER OPERATOR FOR PHYSICIAN NOTIFICATION FOR EARLY SIGNS AND SYMPTOMS OF EXACERBATION OR DETERIORATION. [code = PT TO ASSESS / .NET ARCHITECT TO MONITOR CARDIO/RESPIRATORY SYSTEM; AND NOTIFY THE PHYSICIAN AND/OR THE RN CLINICAL EXTRUDER OPERATOR FOR PHYSICIAN NOTIFICATION FOR EARLY SIGNS AND SYMPTOMS OF EXACERBATION OR DETERIORATION.] Future Scheduled Test PT / .NET ARCHITECT T O MONITOR AND EDUCATE ON OXYGEN SATURATION DURING ADLS/IADLS, NOTIFY PHYSICIAN AND/OR THE RN CLINICAL EXTRUDER OPERATOR FOR PHYSICIAN NOTIFICATION AND IF O2 SATS BELOW PHYSICIAN ORDERED PARAMETERS AFTER 10 MIN OF REST [code = PT / .NET ARCHITECT TO MONITOR AND EDUCATE ON OXYGEN SATURATION DURING ADLS/IADLS, NOTIFY PHYSICIAN AND/OR THE RN CLINICAL EXTRUDER OPERATOR FOR PHYSICIAN NOTIFICATION AND IF O2 SATS BELOW PHYSICIAN ORDERED PARAMETERS AFTER 10 MIN OF REST] Future Scheduled Test PT / .NET ARCHITECT T O MONITOR FOR HYPO/HYPERGLYCEMIA AND CONDUCT ROUTINE FOOT INSPECTIONS. RECORD PATIENT REPORTED BLOOD SUGAR LEVELS AND NOTIFY PHYSICIAN AND/OR THE RN CLINICAL EXTRUDER OPERATOR FOR PHYSICIAN NOTIFICATION IF BLOOD SUGAR LEVELS ARE OUTSIDE ORDERED PARAMETERS. TEACH PATIENT/CAREGIVER ON DAILY FOOT INSPECTIONS [code = PT / .NET ARCHITECT TO MONITOR FOR HYPO/HYPERGLYCEMIA AND CONDUCT ROUTINE FOOT INSPECTIONS. RECORD PATIENT REPORTED BLOOD SUGAR LEVELS AND NOTIFY PHYSICIAN AND/OR THE RN CLINICAL EXTRUDER OPERATOR FOR PHYSICIAN NOTIFICATION IF BLOOD SUGAR LEVELS ARE OUTSIDE ORDERED PARAMETERS. TEACH PATIENT/CAREGIVER ON DAILY FOOT INSPECTIONS] Future Scheduled Test PT / .NET ARCHITECT T O INSTRUCT PATIENT/CAREGIVER ON RISK FOR HOSPITALIZATION/EMERGENCY ROOM VISITS, TEACH SIGNS AND SYMPTOMS THAT PUT PATIENT AT RISK, WHEN TO NOTIFY NURSE/PHYSICIAN OF COMPLICATIONS/DECLINE, AND WHEN TO CALL 911. [code = PT / .NET ARCHITECT TO INSTRUCT PATIENT/CAREGIVER ON RISK FOR HOSPITALIZATION/EMERGENCY ROOM VISITS, TEACH SIGNS AND SYMPTOMS THAT PUT PATIENT AT RISK, WHEN TO NOTIFY NURSE/PHYSICIAN OF COMPLICATIONS/DECLINE, AND WHEN TO CALL 911.] Future Scheduled Test OCCUPATION AL THERAPIST TO EVALUATE FOR ADL RETRAINING [code = OCCUPATIONAL THERAPIST TO EVALUATE FOR ADL RETRAINING ] Future Scheduled Test PT/.NET ARCHITECT TO IDENTIFY FALL RISK FACTORS; EDUCATE THE PATIENT/CAREGIVER ON WAYS TO REDUCE FALL RISK FACTORS AND ESTABLISH HOME EXERCISE PROGRAM TO MINIMIZE FALL RISK. MAY TEACH THE PATIENT FLOOR RECOVERY WHEN CLINICALLY APPROPRIATE [code = PT/.NET ARCHITECT TO IDENTIFY FALL RISK FACTORS; EDUCATE THE PATIENT/CAREGIVER ON WAYS TO REDUCE FALL RISK FACTORS AND ESTABLISH HOME EXERCISE PROGRAM TO MINIMIZE FALL RISK. MAY TEACH THE PATIENT FLOOR RECOVERY WHEN CLINICALLY APPROPRIATE] Future Scheduled Test PT / .NET ARCHITECT M AY EDUCATE ON PAIN MANAGEMENT CLINICALLY INDICATED, INCLUDING NON-PHARMACOLOGICAL PAIN REDUCTION TECHNIQUES. [code = PT / .NET ARCHITECT MAY EDUCATE ON PAIN MANAGEMENT CLINICALLY INDICATED, INCLUDING NON-PHARMACOLOGICAL PAIN REDUCTION TECHNIQUES. ] Future Scheduled Test SIT TO/FRO M STAND TRANSFERS (PT/.NET ARCHITECT) [code = SIT TO/FROM STAND TRANSFERS (PT/.NET ARCHITECT)] Future Scheduled Test PT/.NET ARCHITECT TO PROVIDE GAIT TRAINING FOR IMPROVED MOBILITY AND /OR TO NORMALIZE GAIT PATTERN [code = PT/.NET ARCHITECT TO PROVIDE GAIT TRAINING FOR IMPROVED MOBILITY AND /OR TO NORMALIZE GAIT PATTERN] Future Scheduled Test NEUROMUSCU LAR RE-EDUCATION / BALANCE / POSTURAL CONTROL (PT) [code = NEUROMUSCULAR RE-EDUCATION / BALANCE / POSTURAL CONTROL (PT)] Future Scheduled Test THERAPEUTI C EXERCISES AND ESTABLISHING A HOME EXERCISE PROGRAM (PT/.NET ARCHITECT) [code = THERAPEUTIC EXERCISES AND ESTABLISHING A HOME EXERCISE PROGRAM (PT/.NET ARCHITECT)] Goal Patient Goal - TO WALK Goal Provider Goal - Goal Provider Goal - PT GOAL: PATIENT/CAREGIVER WILL BE ABLE TO IDENTIFY SIGNS OF EXACERBATION OF HYPERTENSION AND WILL VERBALIZE/DEMONSTRATE AN ABILITY TO ADHERE TO HYPERTENSION SELF-MANAGEMENT AND LIFE-STYLE CHANGES BY END OF EPISODE Goal Provider Goal - PT GOAL: THE PATIENT / CAREGIVER WILL DEMONSTRATE ADHERENCE TO COPD SELF-MANAGEMENT BY END OF EPISODE. Goal Provider Goal - PATIENT/CAREGIVER WILL BE ABLE TO IDENTIFY SIGNS OF HYPER- AND HYPOGLYCEMIA AND VERBALIZE HOW TO MANAGE SYMPTOMS. Goal Provider Goal - PT LTG: PATIENT WILL NOT EXHIBIT SIGNS AND SYMPTOMS OF ANTICOAGULANT TOXICITY THROUGHOUT EPISODE OF CARE. Goal Provider Goal - PT LTG: PATIENT WILL NOT EXPERIENCE CARDIAC OR RESPIRATORY COMPLICATIONS THROUGHOUT THE EPISODE OF CARE. Goal Provider Goal - PT LTG: PATIENT WILL MAINTAIN OXYGEN SATURATION WITHIN PHYSICIAN ORDERED PARAMETERS THROUGHOUT EPISODE OF CARE. Goal Provider Goal - PATIENTS BLOOD SUGAR WILL REMAIN WELL CONTROLLED WITH SELF-MANAGEMENT THROUGHOUT EPISODE OF CARE. Goal Provider Goal - PT GOAL: PATIENT/CAREGIVER WILL VERBALIZE UNDERSTANDING OF SIGNS AND SYMPTOMS THAT PUT THE PATIENT AT RISK FOR HOSPITALIZATION /EMERGENCY ROOM VISITS, WHEN TO NOTIFY NURSE/PHYSICIAN OF COMPLICATIONS/DECLINE AND WHEN TO CALL 911. Goal Provider Goal - Goal Provider Goal - PT LTG: PATIENT/CAREGIVER WILL DEMONSTRATE ADHERENCE TO FALL REDUCTION SELF-MANAGEMENT AND REDUCING FALL RISK FACTORS TO MINIMIZE FALL RISK BY END OF EPISODE. PT LTG: PATIENT WILL BE INDEPENDENT WITH IMPLEMENTATION OF HEP WITHIN 9 WEEKS. Goal Provider Goal - PT GOAL: PATIENT WILL DEMONSTRATE UNDERSTANDING OF PAIN MANAGEMENT TECHNIQUES EVIDENCED BY REDUCED GENERALIZED PAIN FROM >7/10 TO 3/10 WITHIN 9 WEEKS. Goal Provider Goal - PT STG: PATIENT WILL DEMONSTRATE IMPROVED ABILITY TO PERFORM SIT TO/FROM STAND TRANSFERS TO REDUCE THE RISK OF SKIN BREAKDOWN AND REDUCE FALL RISK FROM CGA TO INDEPENDENT WITHIN 4 WEEKS. Goal Provider Goal - PT LTG: PATIENT WILL DEMONSTRATE REDUCED GAIT DEVIATIONS TO REDUCE THE RISK FOR FALLING AND MINIMIZE STRAIN ON KNEES/HIPS AND BACK EVIDENCED BY IMPROVED HEEL STRIKE AND STANCE PHASE USING FRONT WHEELED WALKER TO WALK 150 FT OF LEVEL SURFACE INDEPENDENTLY FROM MIN ASSIST IN ORDER TO ACCESS MD OFFICE WITHIN 9 WEEKS. Goal Provider Goal - PT LTG: PATIENT WILL DEMONSTRATE REDUCED FALL RISK EVIDENCED BY TINETTI TEST IMPROVING FROM 7 TO 21 WITHIN 9 WEEKS. PT LTG: PATIENT WILL DEMONSTRATE IMPROVED POSTURAL CONTROL AND SENSORY INTEGRATION OF THEIR BALANCE SYSTEMS EVIDENCED BY MCTSIB IMPROVING FROM 0 TO 2 WITHIN 9 WEEKS. Goal Provider Goal - PT STG: PATIENT WILL SAFELY PERFORM HEP WITH SUPERVISION WITHIN 3WEEKS. PT LTG: PATIENT WILL DEMONSTRATE INCREASED STRENGTH OF B LE FROM 3+/5 TO 4+/5 WITHIN 9 WEEKS IN ORDER TO AMBULATE INDEPENDENTLY. Encounters Start Date/Time End Date/Time Encounter Type Admission Type Attending [facility] Care [facility] Care Department Encounter ID Discharge Date Discharge Status Discharge Condition Discharge Reason Percent Goals Met 2024-09-18 00:00:00 2024-11-16 00:00:00 Outpatient BETSY REID [facility] [id number]
--- OUTSIDE RECORDS SUMMARY | 2024-09-22 02:10 | XMS_ITS | Encounter Summary ---
Author Organization [employer] Care Team Providers Care Drawing In Machine Tender Helper Name Role Phone Gagan Coyne MD Primary Care Provider [phone] Encounter Details Date Type Department Care Team (Latest Contact Info) Description 07/11/2022 Travel Social History Tobacco Use Types Packs/Day [...] suspected to have Coronavirus/COVID-19? No / Unsure 07/11/2022 12:50 PM CDT documented as of this encounter Plan of Treatment Not on file documented as of this encounter Visit Diagnoses Not on filedocumented in this encounter Care Teams Drawing In Machine Tender Helper Relationship Specialty Start Date End Date Gagan Coyne MD [address] [place] [address] PCP - General Family Medicine 01/16/20 documented as of this encounter
--- OUTSIDE RECORDS SUMMARY | 2024-09-22 02:10 | XMS_ITS | Encounter Summary ---
Author Organization [facility] Address [address] [place] [address] Phone Care Team Providers Care Government Documents Librarian Name Role Phone Gagan Coyne MD Primary Care Provider [phone] Encounter Details Date Type Department Care Team (Late st Contact Info) Description 06/27/2022 2:00 PM CDT Physical Therapy [facility] [address] [place] [id number] Provider, Not On File Hugh Rosales MD [address] [facility] [address] [place] [address] Nayely Dillard PTA [place] Discharge Disposition: Discharged to home or Selfcare [...] suspected to have Coronavirus/COVID-19? No / Unsure 06/27/2022 1:36 PM CDT documented as of this encounter Miscellaneous Notes * Plan of Care - Nayely Dillard PTA - 06/27/2022 2:00 PM CDT Treatment Note - Electronically signed by: NAYELY DILLARD, SUPERVISOR COOK ROOM June 27, 2022 SUBJECTIVE: Pt states she is feeling ok today. Pt reports she is ready for therapy. Objective TREATMENT: Refer to PT OP Rehab Therapy Treatment flowsheet for details/minutes. Home Exercises distributed via handout. [employer] information: Access Code: [email or web address] URL: [email or web address] Date: 06/27/2022 Prepared by: Nayely Dillard Exercises [...] weekly - 2 sets - 10 reps Patient response to new home exercises provided today: no increase in pain Interventions provided this session: therex Therapist provided Education and Skilled therapy by instructing pt in exercises and issuing a written HEP ASSESSMENT: Other Details: Patient demonstrates limited progress as evidenced by First session of therapy. Pt appeared challenged by exercises.?? Patient would benefit from continued skilled interventions, [...] relief, soft tissue extensibility and joint mobility (57100) - Therapeutic exercise program for: motion/mobility, strengthening, flexibility, and functional limitations (27953) - Therapeutic activities for functional activity education/training and in home safety recommendations as appropriate (06746) - Neuro Muscular Re-education for body mechanics education and postural re- education as appropriate(96500) - Patient education regarding posture, ergonomics, body mechanics, HEP progression and exercise performance - Individualized home exercise program - Modalities as needed for pain relief, anti-inflammatory effect and soft tissue extensibility - Gait training (81942) - Trigger point dry needling for pain relief and reducing tension in associated musculature (77543 or 44197) Precautions: Ankylosing spondylitis, fall risk Treatment may [...] on filedocumented in this encounter Care Teams Government Documents Librarian Relationship Specialty Start Date End Date Gagan Coyne MD [address] [place] [address] PCP - General Family Medicine 01/16/20 documented as of this encounter
--- OUTSIDE RECORDS SUMMARY | 2024-09-22 02:10 | XMS_ITS | Encounter Summary ---
Author Organization [facility] Address [address] [place] [address] Phone Care Team Providers Care Spray Machine Operator Name Role Phone Gagan Coyne MD Primary Care Provider [phone] Reason for Visit * Reason Comments COVID-19 Exposure Sore Throat Cough Encounter Details Date Type Department Care Team (Latest Contact Info) Description 09/14/2021 12:55 PM DUMPER BULK SYSTEM Clinical Support [facility] [place] [address] [place] [address] Nurse, [facility] Exposure to COVID-19 virus (Primary Dx); Cough; Sore throat Discharge Disposition: Discharged to home or Selfcare [...] or suspected to have Coronavirus / COVID-19? Yes 09/14/2021 12:51 PM DUMPER BULK SYSTEM documented as of this encounter Progress Notes * Jarrod Castro RMA - 09/14/2021 12:55 PM CST Patient presents to prompt care for COVID 19 swab. Bilateral nares swabbed with no difficulty and patient tolerated well. ER BULK SYSTEM documented in this encounter Plan of Treatment Not on file documented as of this encounter Procedures Procedure Name Priority Date/Time Associated Diagnosis Comments POCT SARS ANTIGEN ALMAS Routine 09/14/2021 1:03 PM [facility] SYSTEM Exposure to COVID-19 virus Cough Sore throat documented in this encounter Results * POCT SARS ANTIGEN ALMAS (09/14/2021 1:03 PM DUMPER BULK SYSTEM) POC SARS ANTIGEN ALMAS Negative Negative POC SARS ANTIGEN ALMAS CONTROL Transition Teacher Pass Swab NASAL STRUCTURE / Unknown 09/14/2021 1:03 PM [facility]MP[facility]K SYSTEM Vivek Collado MD POINT OF CARE TESTING (MANUAL) F inal Result documented in this encounter Visit Diagnoses Diagnosis Exposure to COVID-19 virus- Primary Cough Sore throat Acute pharyngitis documented in this encounter Additional Health Concerns Infection Onset Date Last Indicated Resolved Time COVID - 19 09/14/2021 09/14/2021 10/04/2021 12:1 6 AM DUMPER BULK SYSTEM documented as of this encounter Care Teams Spray Machine Operator Relationship Specialty Start Date End Date Gagan Coyne MD [address] [place] [address] PCP - General Family Medicine 01/16/20 documented as of this encounter
--- OUTSIDE RECORDS SUMMARY | 2024-09-22 02:10 | XMS_ITS | Encounter Summary ---
Author Organization [employer] Care Team Providers Care Nurse Anesthesia Program Director Name Role Phone Gagan Coyne MD Primary Care Provider [phone] Encounter Details Date Type Department Care Team (Latest Contact Info) Description 06/27/2022 Travel Social History Tobacco Use Types Packs/Day [...] on filedocumented in this encounter Care Teams Nurse Anesthesia Program Director Relationship Specialty Start Date End Date Gagan Coyne MD [address] [place] [address] PCP - General Family Medicine 01/16/20 documented as of this encounter
--- OUTSIDE RECORDS SUMMARY | 2024-09-22 02:10 | XMS_ITS | Encounter Summary ---
Author Organization [employer] Address [address] [place] [address] Care Team Providers Care Cyber Reverse Engineer Name Role Phone Unavailable Primary Care Provider Unavailabl e Encounter Details Date Type Department Care Team (Latest Contact Info) Description 10/19/1998 Outpatient Historical HIS OBSERVATION BED Michael Harris MD [address] [place] [address] [place] [address] BackerKarlos MD NO ADDRESS ON FILE Lumbago (Primary Dx) Social History Tobacco Use Types Packs/Day Years Used Date Smoking Tobacco: Never Assessed Sex and Gender Information Value Date Recorded Sex Assigned at Not on file Gender Identity Not on file Sexual Orientation Not on file documented as of this encounter Plan of Treatment Not on file documented as of this encounter Visit Diagnoses Diagnosis Lumbago- Primary documented in this encounter
--- OUTSIDE RECORDS SUMMARY | 2024-09-22 02:10 | XMS_ITS | Encounter Summary ---
Author Organization [employer] Address [address] [place] [address] Care Team Providers Care Complaints Coordinator Name Role Phone Unavailable Primary Care Provider Unavailabl e Encounter Details Date Type Department Care Team (Late st Contact Info) Description 10/03/2001 Outpatient Historical Division of Neurology [address] [address] (Excluded Provider) [place] [address] [facility] [address] [place] [address] Social History Tobacco Use Types Packs/Day Years [...]
--- OUTSIDE RECORDS SUMMARY | 2024-09-22 02:10 | XMS_ITS | Encounter Summary ---
Author Organization [facility] Address [address] [place] [address] Phone Care Team Providers Care Movie Shot Cameraman Name Role Phone Gagan Coyne MD Primary Care Provider [phone] Reason for Visit * Reason Onset Date Comments Appointment 07/16/2022 Encounter Details Date Type Department Care Team (Late st Contact Info) Description 07/16/2022 Telephone [facility] [address] [place] [address] Devang uHrt, MARGARITA CT Appointment Social History Tobacco Use Types Packs/Day Years Used Date Smoking Tobacco: Never Assessed Comments Unknown Sex and Gender Information Value Date Recorded Sex Assigned at Not on file Legal Sex Female 7:08 PM CDT Gender Identity Not on file Sexual Orientation Not on file COVID-19 Exposure Response Date Recorded In the last 10 days, have paige u been in contact with someone who was confirmed or suspected to have Coronavirus/COVID-19? No / Unsure 07/13/2022 12:47 PM CDT documented as of this encounter Miscellaneous Notes * Telephone Encounter - Devang Hurt PTA - 07/16/2022 10:58 AM CDT ----- Message from Jesusita Chicas sent at 07/16/2022 10:53 AM CDT ----- Regarding: cancellation Blanca is cancelling today's apt, pt states she hurts too bad to come to therapy today, that she is on extra medicine that she usually doesnt take because she is in pain. documented in this encounter Plan of Treatment Not on file documented as of this encounter Visit Diagnoses Not on filedocumented in this encounter Care Teams Movie Shot Cameraman Relationship Specialty Start Date End Date Gagan Coyne MD [address] [place] [address] PCP - General Family Medicine 01/16/20 documented as of this encounter
--- OUTSIDE RECORDS SUMMARY | 2024-09-22 02:10 | XMS_ITS | Encounter Summary ---
Author Organization [employer] Care Team Providers Care Auto Tech Name Role Phone Gagan Coyne MD Primary Care Provider [phone] Encounter Details Date Type Department Care Team (Latest Contact Info) Description 09/14/2021 Travel Social History Tobacco Use Types Packs/Day [...] Coronavirus / COVID-19? Yes 09/14/2021 12:[address] [facility] [address] [address] documented as of this encounter Plan of Treatment Not on file documented as of this encounter Visit Diagnoses Not on filedocumented in this encounter Additional Health Concerns Infection Onset Date Last Indicated Resolved Time COVID - 19 09/14/2021 09/14/2021 10/04/2021 12:1 6 [address] [facility] [address] documented as of this encounter Care Teams Auto Tech Relationship Specialty Start Date End Date Gagan Coyne MD [address] [place] [address] PCP - General Family Medicine 01/16/20 documented as of this encounter
--- OUTSIDE RECORDS SUMMARY | 2024-09-22 02:10 | XMS_ITS | Encounter Summary ---
Author Organization [facility] Address [address] [facility] [place] [address] Phone Care Team Providers Care Entry Level Account Manager Name Role Phone Gagan Coyne MD Primary Care Provider [phone] Reason for Visit * Reason Onset Date Comments COVID-19 01/16/2020 Encounter Details Date Type Department Care Team (Late st Contact Info) Description 01/16/2020 Nurse Triage [facility] [address] [place] [id number] Gagan Coyne MD [address] [place] [address] COVID-19 Social History Tobacco Use Types Packs/Day Years [...] AM CDT documented as of this encounter Miscellaneous Notes * Telephone Encounter - Ponce Dowd RN - 01/16/2020 9:27 AM CDT Reason for Disposition ? ? HIGH RISK patient (e.g., age > 64 years, diabetes, heart or lung disease, weak immune system) Answer Assessment - Initial Assessment Questions 1. COVID-19 DIAGNOSIS: Who made your Coronavirus (COVID-19) diagnosis? Was it confirmed by a positive lab test? If not diagnosed by a HCP, ask Are there lots of cases (community spread) where you live? (See public health department website, if unsure) * MAJOR community spread: high number of cases; numbers of cases are increasing; many people hospitalized. * MINOR community spread: low number of cases; not increasing; few or no people hospitalized States does not think there is a lot of cases 2. ONSET: When did the COVID-19 symptoms start? A couple of days to a week ago 3. WORST SYMPTOM: What is your worst symptom? (e.g., cough, fever, shortness of breath, muscle aches) States chills / fever, body aches 4. COUGH: How bad is the cough? mild 5. FEVER: Do you have a fever? If so, ask: What is your temperature, how was it measured, and when did it start? Feels warm right now - does not have a thermometer 6. RESPIRATORY STATUS: Describe your breathing? (e.g., shortness of breath, wheezing, unable to speak) States breathing ok right now, has not gotten out of bed yet 7. [id number]: Are you getting better, staying the same or getting worse compared to yesterday? If getting worse, ask, In what way? States worse than yesterday - cough kept her up last night, body aches 8. HIGH RISK DISEASE: Do you have any chronic medical problems? (e.g., asthma, heart or lung disease, weak immune system, etc.) Diabetes and COPD 9. : Is there any chance you are ? When was your last menstrual period? NA 10. OTHER SYMPTOMS: Do you have any other symptoms? (e.g., runny nose, headache, sore throat, loss of smell) Dry cough, shortness of breath, fever / chills, muscle pain Protocols used: CORONAVIRUS (COVID-19) DIAGNOSED OR [id number] * Telephone Encounter - Ponce Dowd RN - 01/16/2020 8:56 AM CDT Nurse to triage according to symptoms. SITUATION: Spoke with Mejia, per request of the patient. calling with symptoms of drycough, intermittent shortness of breath when patient walks to much (from one end of house to the other) for at least a week, fever / chils - feels warm for 2-3 days, and muscle pain. States dry coughkept her up last night and had dry heaves. States flash of pain in head for a week or so. BACKGROUND: and only in household - both retired. States she wears a mask when out andstays indoors 90% of the time. States one indoor cat. States has not been around anyone COVID 19 positive. History of COPD and diabetes. ASSESSMENT: Symptom Description / Location: see note above Pain (0-10): 4/10 - arthritis pain Temp: feels warm, no thermometer Treatment / Response: rest, acetaminophen for pain RECOMMENDATION: See care advice and disposition for Guideline Telephone visit scheduled for patient to speak with provider on duty at [facility] center. Advised patient of [facility] Coronavirus Care at Home instructions. Advised if patient symptoms worsen to seek medical attention promptly. verbalized understanding. First positive answer recorded, all responses to prior questions were negative. If symptoms increase, change, or if new symptoms develop, call your HCP or call back. Recommendations were based on caller information and are not a diagnosis. Verified and reviewed all triage information with caller. Direct patient disposition to appropriate level of care including giving care advice. Patients whose symptoms require immediate emergency assistance should be directed to contact 911 for emergency assistance. If the triage nurse is calling 911, notify them of the positive screening. For disposition of being seen by a provider in 24 hours or less or discuss with PCP: Schedule VIDEO or TELEPHONE appt. with [facility] provider. For Home Care advice: Patient counseled to remain at home. If symptoms worsen, the patient counseled to call back. If symptoms are severe, the patient instructed to call 911 or go to ED immediately. ??? Patient to push fluid intake and take Tylenol PRN for fever, body aches. ??? If you do not live alone: segregate yourself, use a separate bathroom if possible, sleep in a separate area, have no/limited family time, and the person with symptoms is not to prepare food for others. ??? Patient advised to contact employer now to report positive screen and symptoms. ??? Patient request for an excuse note: Instruct them to send request for note through [facility] or call PCP office. (Per CDC: Employers should not require a positive COVID-19 test result or a healthcare provider's note for employees who are sick to validate their illness, qualify for sick leave,or to return to work. [facility] is not providing excuse for work notes or return to work notesat this time per CDC recommendations). How to Discontinue Home Isolation People with COVID-19 (or have had COVID-19 type symptoms) who have stayed home (home isolated) can stop home isolation under the following conditions: 1. No fever (100.0 for HCW, 100.4 for lay people) for 3 days (without the use of fever reducing medicine) AND 2. Other symptoms have improved (i.e. cough, SOB) AND 3. At least 7 days have passed since your symptoms first appeared Caller verbalizes understanding of the above information. * Telephone Encounter - Juli Zafar ATC - 01/16/2020 8:25 AM CDT Images from the original note were not included. Travel Screening Question Response Do you have any of the following symptoms? Cough;Shortness of breath;Fever;Muscle pain (Chills, unable to take temperature but feels warm, loss of taste, symptom onset 01/13/20) In the last month, have you been in contact with someone who was confirmed or suspected to have Coronavirus / COVID-19? No / Unsure Have you traveled internationally in the last month? No Travel History Travel since 12/17/19 No documented travel since 12/17/19 Patients whose symptoms require immediate emergency assistance should be directed to contact 911 for emergency assistance. If the triage nurse is calling 911, notify them of the negative screening. Screening Positive/Negative? NEGATIVE Patient is experiencing COVID-19 type symptoms but has not been exposed or travelled - Educate patient using CDC care guidelines and ask patient/caller if they would like to speak to diet counselor. Did patient request diet counselor? yes ??? Patient counseled to remain at home unless symptoms get worse and to quarantine for 14 days from symptom onset. ??? Patient to push fluid intake and take medication for fever if needed. ??? If you do not live alone: segregate yourself, use a separate bathroom if possible, sleep in a separate area, have no family time, and the person with symptoms is not to prepare food for others. ??? If symptoms worsen the patient was counseled to call back to their primary care provider office. ??? Seek emergency care only if symptoms warrant. Caller verbalizes understanding of the above information. Patient hx of borderline diabetes. JULI ZAFAR ATC documented in this encounter Plan of Treatment Not on file documented as of this encounter Visit Diagnoses Not on filedocumented in this encounter Care Teams Entry Level Account Manager Relationship Specialty Start Date End Date Gagan Coyne MD [address] [place] [address] PCP - General Family Medicine 01/16/20 documented as of this encounter
--- OUTSIDE RECORDS SUMMARY | 2024-09-22 02:10 | XMS_ITS | Encounter Summary ---
Author Organization [facility] Address [address] [place] [address] Phone Care Team Providers Care Diversity Specialist Name Role Phone Gagan Coyne MD Primary Care Provider [phone] Encounter Details Date Type Department Care Team (Late st Contact Info) Description 07/11/2022 1:15 PM CDT Physical Therapy [facility] at [facility] [address] [facility] [place] [phone] Provider, Not On File Hguh Rosales MD [address] [facility] [facility] [address] [place] [address] Nayely Dillard PTA [place] Discharge [...] of Care - Nayely Dillard PTA - 07/11/2022 1:15 PM CDT Treatment Note - Electronically signed by: NAYELY DILLARD, LINE ASSEMBLER July 11, 2022 SUBJECTIVE: Pt reports she has a lot of pain toddya. Pt states her pain has beeen really high lastely. She has not felt like doing her exercises because she is hurting so much. Pt states the exercises do not make her pain worse. Objective TREATMENT: Refer to PT OP Rehab Therapy Treatment flowsheet for details/minutes. Home Exercises distributed via handout. [employer] information: Access Code: [email or web address] URL: [email or web address] Date: 06/27/2022 Prepared by: Nayely Dillard Exercises [...] and Skilled therapy by instructing pt in exercises. Discussed the importance of doing her exercises everyday as long as it is not increasing her pain. ASSESSMENT: Other Details: Patient demonstrates limited progress as evidenced by having difficulty walking in her home. Pt has difficulty staying close to her rollator. Pt was instructed to bring in her wheeled walker next visit for proper training and fitting on it. Pt states she is not comfortable and finds it difficult to use at home. Patient would benefit from continued skilled interventions, [...] relief, soft tissue extensibility and joint mobility (84348) - Therapeutic exercise program for: motion/mobility, strengthening, flexibility, and functional limitations (66246) - Therapeutic activities for functional activity education/training and in home safety recommendations as appropriate (52469) - Neuro Muscular Re-education for body mechanics education and postural re- education as appropriate(59954) - Patient education regarding posture, ergonomics, body mechanics, HEP progression and exercise performance - Individualized home exercise program - Modalities as needed for pain relief, anti-inflammatory effect and soft tissue extensibility - Gait training (87358) - Trigger point dry needling for pain relief and reducing tension in associated musculature (30112 or 02845) Precautions: Ankylosing spondylitis, fall risk Treatment may [...] on filedocumented in this encounter Care Teams Diversity Specialist Relationship Specialty Start Date End Date Gagan Coyne MD [address] [place] [address] PCP - General Family Medicine 01/16/20 documented as of this encounter
--- OUTSIDE RECORDS SUMMARY | 2024-09-22 02:10 | XMS_ITS | Encounter Summary ---
Author Organization [facility] Address [address] [place] [address] Phone Care Team Providers Care Supervisor Steno Pool Name Role Phone Gagan Coyne MD Primary Care Provider [phone] Encounter Details Date Type Department Care Team (Late st Contact Info) Description 07/02/2022 2:45 PM CDT Physical Therapy [facility] [address] [facility] [place] [phone] Provider, Not On File Hugh Rosales MD [address] [facility] [address] [place] [address] Renea Weber, PT [place] Abnormal gait (Primary Dx); Abnormal posture; Weakness; Back pain; Knee pain Discharge Disposition: Discharged to home or Selfcare [...] Miscellaneous Notes * Plan of Care - Renea Weber, PT - 07/02/2022 2:45 PM CDT Treatment Note - Electronically signed by: JUAN ALBERTO BIGGS, Student July 02, 2022 SUBJECTIVE: Patient states that her L knee is bothering her. She says that she feels like she is leaning to theright a lot. Patient says that feels like her body does strange things and has split her coffee allover herself when her arm just does what it wants. OBJECTIVE Observation: Gait: Patient demonstrated a trendelenburg gait with R hip drop and R side bending. Patient uses a four wheeled rolling walker and have difficulty keeping base of support within walker. Patient walks with R hip medially rotated and adducted. TREATMENT: Patient was educated that taping knee would stabilize knee but is not a terminal operations manager solution. Patientwas educated on using lower abdominals and breathing when performing therex on trinidadian ball. Patient was educated on how important it is to use glute muscles during STS and clamshells to help stabilizehips and decrease hip drop. Patient was taped before therapy session and kept tape on after session. Patient was educated to check skin for redness, irritation, and itchiness and to take it off immediately if experiencing any abnormal symptoms. Patient was educated on performing clam shells with HEP and to keep hips stacked on top of one another and that she should be felling her glute muscles firing. Taping: rocktape cupping technique to L knee with a decompression strip along patellar tendon ASSESSMENT: Other Details: Patient demonstrates progress with increased endurance when performing therapeutic exercises. Patient still demonstrates postural imbalance and weakness and was challenged during today's therapy session. Patient was able to activate lower abdominals and increase lower extremity strength when performing therex. Patient was able to understand cueing of weight-shifting when asked to perform activities that encouraged her to one lower extremity at a time and reaching outside of her base of support. Patient still lost balance but was able to correct her body mechanics with cueing. Patient still needs reinforcement with wheeled walker safety and to keep base of support within handles. Patient is planned to progress with hip/core strength, body recall instructor awareness, and endurance malia able to perform ADLs with less difficulty. Patient would benefit from continued skilled interventions, [...] up out of a chair without assist. Progressing 07/02/2022 AFM 4. Patient to perform 7 sit to [...] relief, soft tissue extensibility and joint mobility (26662) - Therapeutic exercise program for: motion/mobility, strengthening, flexibility, and functional limitations (99251) - Therapeutic activities for functional activity education/training and in home safety recommendations as appropriate (92170) - Neuro Muscular Re-education for body mechanics education and postural re- education as appropriate(41188) - Patient education regarding posture, ergonomics, body mechanics, HEP progression and exercise performance - Individualized home exercise program - Modalities as needed for pain relief, anti-inflammatory effect and soft tissue extensibility - Gait training (53545) - Trigger point dry needling for pain relief and reducing tension in associated musculature (79902 or 51174) Precautions: Ankylosing spondylitis, fall risk Treatment may be altered based on patient progression and symptoms. The plan of care, as well as the benefits and risks of therapy were reviewed with the patient and the patient consented to treatment. . Treatment provided jointly by Juan Alberto ESCUDERO and Renea Weber PT , with qualified caregiver directing care through skilled judgment and taking responsibility for assessment and treatment. I have read and agree with student documentation by Juan Alberto ESCUDERO on this date. Reviewof documentation includes Note, Doc flow sheet and associated functions to support documentation. Iwas present and actively involved in all aspects of care. documented in this encounter Plan of Treatment Not on file documented as of this encounter Visit Diagnoses Diagnosis Abnormal gait- Primary Abnormality of gait Abnormal posture Weakness Other malaise and fatigue Back pain Backache, unspecified Knee pain Pain in joint, lower leg documented in this encounter Care Teams Supervisor Steno Pool Relationship Specialty Start Date End Date Gagan Coyne MD [address] [place] [address] PCP - General Family Medicine 01/16/20 documented as of this encounter
--- OUTSIDE RECORDS SUMMARY | 2024-09-22 02:10 | XMS_ITS | Encounter Summary ---
Author Organization [employer] Care Team Providers Care Instructor Military Science Name Role Phone Gagan Coyne MD Primary Care Provider [phone] Encounter Details Date Type Department Care Team (Latest Contact Info) Description 06/25/2022 Travel Social History Tobacco Use Types Packs/Day [...] suspected to have Coronavirus/COVID-19? No / Unsure 06/25/2022 2:36 PM CDT documented as of this encounter Plan of Treatment Not on file documented as of this encounter Visit Diagnoses Not on filedocumented in this encounter Care Teams Instructor Military Science Relationship Specialty Start Date End Date Gagan Coyne MD [address] [place] [place] [address] PCP - General Family Medicine 01/16/20 documented as of this encounter
--- OUTSIDE RECORDS SUMMARY | 2024-09-22 02:10 | XMS_ITS | Continuity of Care Document ---
Author Organization [facility] Address [address] [place] [address] Phone Care Team Providers Care Winder Helper Name Role Phone Max Patrick Unavailable Unavailable Advance Directives Directive Yes / No Effective Date File Name No Information Encounters Encounter Description Practice Location Reason(s) For Visit Diagnoses Date Provider Providers Copied on Encounter [facility], [address], [place], [place], [id number], [place] tel:[phone] [address] Estiven HUSAIN Professional No Information Negrito-0 [phone] Darnell Santana. [address], [place], [address], [place]. tel:[phone] Family History Family Member Type Diagnosis Age At Onset No Information Payers Payer name Insurance type Covered democrat ID Authoriza tion(s) No Information Social History Type Description Quantity Date Captured Comments Sex Female Smoking Status No Information Chief Complaint And Reason For Visit No Information Reason For Referral Reason For Referral No Information History Of Present Illness Encounter Date Complaint History Of Prese nt Illness No Information Functional Status Date Functional Assessmen t No Information Instructions Date Instruction Additional Infor mation No Information Assessments Type Assessment Date No Information Patient Care Teams Name Effective Dates (start - stop) Status Members No Information
--- OUTSIDE RECORDS SUMMARY | 2024-09-22 02:10 | XMS_ITS | Encounter Summary ---
Author Organization [employer] Care Team Providers Care Rn Cardiovascular Icu Name Role Phone Gagan Coyne MD Primary Care Provider [phone] Encounter Details Date Type Department Care Team (Latest Contact Info) Description 07/02/2022 Travel Social History Tobacco Use Types Packs/Day [...] on filedocumented in this encounter Care Teams Rn Cardiovascular Icu Relationship Specialty Start Date End Date Gagan Coyne MD [address] [place] [address] PCP - General Family Medicine 01/16/20 documented as of this encounter
--- OUTSIDE RECORDS SUMMARY | 2024-09-22 02:10 | XMS_ITS | Encounter Summary ---
Author Organization [employer] Care Team Providers Care Accounting Practice Manager Name Role Phone Gagan Coyne MD Primary Care Provider [phone] Encounter Details Date Type Department Care Team (Latest Contact Info) Description 07/13/2022 Travel Social History Tobacco Use Types Packs/Day [...] on filedocumented in this encounter Care Teams Accounting Practice Manager Relationship Specialty Start Date End Date Gagan Coyne MD [address] [place] [place] [address] PCP - General Family Medicine 01/16/20 documented as of this encounter
--- OUTSIDE RECORDS SUMMARY | 2024-09-22 02:10 | XMS_ITS | Encounter Summary ---
Author Organization [employer] Address [address] [place] [address] Care Team Providers Care Sprinkler Helper Name Role Phone Unavailable Primary Care Provider Unavailabl e Encounter Details Date Type Department Care Team (Late st Contact Info) Description 10/31/2001 Outpatient Historical Division of Neurology [address] [address] (Excluded Provider) [place] [address] [facility] [address] [place] [address] Social History Tobacco Use Types Packs/Day Years [...]
--- OUTSIDE RECORDS SUMMARY | 2024-09-22 02:10 | XMS_ITS | Encounter Summary ---
Author Organization [employer] Care Team Providers Care Meat Press Operator Name Role Phone Gagan Coyne MD Primary Care Provider [phone] Encounter Details Date Type Department Care Team (Latest Contact Info) Description 01/16/2020 Travel Social History Tobacco Use Types Packs/Day [...] documented as of this encounter Care Teams Meat Press Operator Relationship Specialty Start Date End Date Gagan Coyne MD [address] [place] [address] PCP - General Family Medicine 01/16/20 documented as of this encounter
--- OUTSIDE RECORDS SUMMARY | 2024-09-22 02:10 | XMS_ITS | Encounter Summary ---
Author Organization [facility] Address [address] [place] [address] Phone Care Team Providers Care Machine Carton Marker Name Role Phone Gagan Coyne MD Primary Care Provider [phone] Reason for Visit * Reason Comments COVID-19 Encounter Details Date Type Department Care Team ([facility] Contact Info) Description 01/16/2020 9:45 AM CDT Telemedicine [facility] [address] [place] [address] Baldo Cintron, LOPEZ [address] [place], [place] [id number] Cough (Primary Dx); SOB (shortness of breath); Fever, unspecified fever cause Discharge Disposition: Discharged to home or Selfcare [...] as of this encounter Progress Notes * Baldo Cintron PAC - 01/16/2020 9:45 AM CDT Images from the original note were not included. [facility] SUBJECTIVE Chief Complaint Patient presents with ??? COVID-19 Blanca Nam, 74 y.o. female calls with c/o cough, SOB, body aches, chills and subjective fever (does not have thermometer) x 3 days. Pt states that she feels out of breath if she does to much . She does not feel SOB or with usual activity around her house. Pt has hx of COPD and diabetes. Pt is on immunosuppressants as well for ankylosing spondylitis and arthritis. Patient states that she and her have been trying to stay at home and social distance as much as possible. She denies any sick contacts. Allergies Allergen Reactions ??? Keflex [Cephalexin] Swelling Tongue and throat swell Past Medical History Positives Diagnosis Date ??? Arthritis ??? COPD (chronic obstructive pulmonary disease) (HCC) ??? Diabetes mellitus (HCC) ??? Hypertension Social History Substance and Sexual Activity Alcohol Use Not on file Social History Tobacco Use Smoking Status Not on file Current Outpatient Medications on File Prior to Visit Medication Sig Dispense Refill ??? Abatacept (ORENCIA IV) by Intravenous route. ??? amLODIPine (NORVASC) 5 MG Tablet ??? [...] 50 MG Tablet No current facility-administered medications on file prior to visit. There is no problem list on file for this patient. Review of Systems Constitutional: Positive for chills and fever. Negative for activity change, appetite change and fatigue. HENT: Negative for congestion, ear discharge, ear pain, postnasal drip, rhinorrhea, sinus pain and sore throat. Respiratory: Positive for cough and shortness of breath. Negative for wheezing. Musculoskeletal: Positive for arthralgias and myalgias. Chief complaint and all history documented by ancillary staff were reviewed and verified with additions or corrections as appropriate. OBJECTIVE Instructed patient to take radial pulse over the phone while I timed, pulse: 68. Instructed patientto count respirations with each inhaled breath over the phone while I timed, respirations: 20. Speaking in complete sentences. No distress or coughing noted during dialogue. Physical Exam ASSESSMENT/PLAN Patient was assessed via telephone for a duration of 15 minutes. Patient verbally consented for this service to be performed. Patient offered in person evaluation at Urgent Care or in ER today. She declined Rx for inhaler sent to patient's pharmacy Pt qualifies for testing as Priority 3. She will go to [facility] in [place]. I have notified the facility, warm hand off given. [facility] in [place] will call patient with further instructions for testing Order has been placed Education: - Discussed further in-person evaluation including option of ED visit at this time. Pt declined further evaluation at this time. Pt would like to use conservative management and remain home. Discussed risks associated with this decision and pt voices understanding. - Patient counseled to remain at home unless symptoms get worse. If symptoms worsen, the patient was counseled to call back to their PCP office (or this triage line if no PCP) or go to ED immediatelyfor severe symptoms. - Patient advised stay home until these three things have happened: - No fever for 3 days (without the use of medicine) AND - Other symptoms have improved (ie cough, SOB) AND - at least 7 days have passed since your symptoms first appeared - Patient to push fluid intake and take Tylenol PRN for fever, body aches. - If you do not live alone: segregate yourself, use a separate bathroom if possible, sleep in a separate area, have no/limited family time, and the person with symptoms is not to prepare food for others. Diagnoses and all orders for this visit: Cough - albuterol 108 (90 Base) MCG/ACT Aerosol Solution; take 2 Puffs by inhalation every 4 hours as needed for Wheezing or Cough. - SARS-COV-2 BY PCR SOB (shortness of breath) - albuterol 108 (90 Base) MCG/ACT Aerosol Solution; take 2 Puffs by inhalation every 4 hours as needed for Wheezing or Cough. - SARS-COV-2 BY PCR Fever, unspecified fever cause - SARS-COV-2 BY PCR - LOPEZ MODI documented in this encounter Plan of Treatment Not on file documented as of this encounter Procedures Procedure Name Priority Date/Time Associated Diagnosis Comments SARS-COV-2 BY MOLECULAR Routine 01/16/2020 10:43 AM CDT Cough SOB (shortness of breath) Fever, unspecified fever cause COVID19 BY BUILDING PERFORMANCE SPECIALIST/PCR ([facility]) Routine 01/16/2020 10:43 AM CDT Cough SOB (shortness of breath) Fever, unspecified fever cause documented in this encounter Results * COVID19 BY BUILDING PERFORMANCE SPECIALIST/PCR (ID/[facility]/NON-INTERFACED LAB) (01/16/2020 10:43 AM CDT) COVID-19 vmware architect-PCR (NON INTERFACED) NOT DETECTED - See Scanned Report Not Detected 01/18/2020 11:07 AM CDT [facility] Swab (specimen) NASOPHARYNGEAL SWAB / Unknown Non-Phlebotomy Collection / Unknown 01/16/2020 10:43 AM CDT 01/16/2020 10:43 AM CDT us Baldo Cintron PAC LAB SEND OUTS Paz l Result [facility] [address] [place] [address] * SARS-COV-2 BY PCR (01/16/2020 10:43 AM CDT) SARSCOV2 Sent to [facility]Outsid e Lab for testing. See COVID-19 by vmware architect-PCR, Non-Interfa papito for results. (Reference Range for this test is Not Detected) 01/18/2020 11:06 AM CDT NON-INTERFACED REFERENCE LABORATORIES Swab (specimen) NASOPHARYNGEAL SWAB / Unknown Non-Phlebotomy Collection / Unknown 01/16/2020 10:43 AM CDT 01/16/2020 10:43 AM CDT Baldo Cintron PAC MICROBIOLOGY - GENER AL ORDERABLES Final Result NON-INTERFACED REFERENCE LABORATORIES documented in this encounter Visit Diagnoses Diagnosis Cough- Primary SOB (shortness of breath) Shortness of breath Fever, unspecified fever cause documented in this encounter Additional Health Concerns Infection Onset Date Last Indicated Resolved Time COVID - 19 01/16/2020 01/16/2020 01/18/2020 1:27 PM CDT documented as of this encounter Care Teams Machine Carton Marker Relationship Specialty Start Date End Date Gagan Coyne MD [address] [place] [address] PCP - General Family Medicine 01/16/20 documented as of this encounter
--- OUTSIDE RECORDS SUMMARY | 2024-09-22 02:10 | XMS_ITS | Encounter Summary ---
Author Organization [facility] Address [address] [place] [address] Phone Care Team Providers Care Registration Clerk Name Role Phone Ggaan Coyne MD Primary Care Provider [phone] Reason for Visit * PT/OT/ST (Routine) - Closed Specialty Diagnoses / Procedures Referred By Contac t Referred To Contact Rehabilitation Diagnoses Weakness Unspecified fall, initial encounter Hugh Mendez MD [address] [place] [address] [address] [place] [address] Phone: tel: fax: [facility] at [address], [address] [address] Phone: tel: fax: Referral ID Status Reason Start Date Expiration Date Visits Re quested Visits Authorized [id number] Closed 1 1 Encounter Details Date Type Department Care Team (Late st Contact Info) Description 06/25/2022 2:45 PM CDT Physical Therapy [facility] [address], [place] [address] [address] Provider, Not On File Hugh Rosales MD [address] [place] [address] [address] [place] [address] Weber, Lizbeth C, PT [place] Abnormal gait (Primary Dx); Abnormal [...] Miscellaneous Notes * Plan of Care - Lizbeth Weber, PT - 06/25/2022 2:45 PM CDT Initial Evaluation - Electronically signed by: LIZBETH WEBER, PT June 25, 2022 SUBJECTIVE: Onset Date: progressive Primary complaint: was having falls, about 12 in the past year. Patient Narrative: Patient reports that she was doing well since she was discharged from the hospital to [facility] in [place]. Reports she was hospital for a fall and when she went into the hospital something happened and she got a virus in which she slept for 3 days straight and was out of it and hallucinating for multiple days. Reports that they had to explain to her that it was nother normal. Reports they did all kinds of testing and could not find anything wrong. Reports she was in the hospital and after about 5 days she started to come out of it so they sent her for rehab. She was in rehab for 3-4 weeks and when she got home she was going well. Reports she was much stronger and was walking very well with the walker. Reports that the things she was able to do, she had notdone in months. Reports she was getting, OT, PT and speech and met all of her goals. Reports they discharged her and recommended out patient therapy. Reports they just started with a new doctor because her last doctor retired. Reports she has been home from rehab for about 3 weeks and she was doingher exercises at home that they gave her at discharge. Since she got home she has declined quite a bit. Reports her while she was in the hospital, they reduced her medication for neuropathy and the neuropathy has gotten much worse. Reports that they havenow raised the dosage back up and it is starting to improve some but she notices her walking has been much worse. Prior to going into the hospital she was using a rollator. Somedays she walks well with it and sometimes she uses a power wheelchair but not often. Reports they have 2 steps to get up to the deck and 2 more to get in, but now they have ramps to get in. Reports she lives with her in a one story house with a basement where the laundry is. Reports that her does the laundry. He does cooking and cleaning. Reports he helps her with washing her back and do her hair. Helps with different things in bathing. Reports that when she firstgot home from the rehab she was able to bath herself but she has declined. Reports she is trying to make herself do as much as she can on her own. Reports when she was in rehab she was using a wheelchair all day and was wheeling around. At home she is sitting in a very comfortable chair, in a recliner for most of the day. States in rehab she was mostly in a wheelchair all day and [facility] and felt very safe. Reports part of what they need to know from therapy is what device she should be using to get around. She does not feel safe on the rollator because she feels like she can not control it. Reports that her is home most of the time except when he runs to the grocery store. Reportshe is afraid to go places and leave her for a long period of time. Reports that they have not really been able to go out and about since about 2014 because there inability to walk and go. They also deal with a lot of pain that limits mobility and ability to travel. - Current level of function: Very limited ambulation in the house, difficulty going up and down steps, needs assist with bathing and dressing, difficulty with prolonged standing. - Prior level of function: able to walk in the community safely with a rollator, able to go up and down steps to get in the house, independent with pain Symptom Location: back pain, whole pain 1) Current pain 7/10 - Constant, described as - Range 3/10 to 7/10 - Aggravating factors: standing, walking, sitting. Any activity out of sitting in the recliner - Easing factors: sitting in the recliner. Patient is Right side dominant. 24 hour symptom behavior/sleep: difficulty sleeping due to pain This patient exhibits fear avoidance behavior No Pertinent Past Medical History including: high blood pressure and ankylosing spondylitis, RA, Osteoarthritis in her knees, getting injections, scheduled for a total knee replacement on Sep 19, torn rotator cuff on the left. 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 Coordination of care: Patient reports prior therapy (in [facility] and inpatient) this year for this or any other condition. Patient is not currently seeking other concurrent treatment. Work/Hobbies/Activities: used to travel, participate in community activity, children all live out of state and would like to be able to travel to see them. Patient's goal for Physical Therapy: to get our life back We have a daughter that lives in [place] and they cant go. We want our lives back. Cant really travel because they cant go as she is not safe and it hurts too much. Patient learning style: - Barriers to learning: no barriers - Preferred learning style: listening and pictures/videos - Preferred language: Surinamese - Fiber Design Engineer needed: No Written attendance policy reviewed: Yes Next appointment with referring provider: unknown OBJECTIVE Observation: Gait: Patient ambulated into the department with a rollator with increased trunk flexion, increased terri, poor control of the walker and very unsafe. She required min assist to control the walker and verbal cues to keep walker close to her body. Patient reported that everybody tells her that but she has a hard time doing it. Hip/Knee: Strength: All Strength measurements out of 5 unless otherwise noted. Increased trunk rotation and side bending with attempt to hold test position for lower extremity strength testing indicating poor core stability. Hip Flexion: Left: 3+ Right: 4 Hip Extension: (Unable tolerate test position but functional weakness noted with observation of movement. ) Hip Abduction: Left: unable to get in test position Right: 3- Knee Flexion: Left: 4 Right: 4 Knee Extension: Left: 3+ Right: 4 TREATMENT: Patient was educated in the overall POC, the findings during the evaluation, and the goals for PT. Patient was educated in [facility] attendance policy for therapy and signed agreement to abide by the policy. Patient was in agreement with the overall POC. Patient was educated in the anatomy of the hip and spine and how weakness in the hip and core can lead to back pain as well as difficulty with transfers and gait. Educated on safety with walking and the appropriate use of an assistive device. Educated on the safety concerns with her use of a rollator and the benefits of using a regular wheeled walker instead. Patients asked about using a wheelchair instead of a walker. Educated patient and on the health benefits of standing and walking when compared to sitting in a wheelchair. Patient was educated on the safety concerns and the recommendation to use a wheeled walker instead of a rollator as they give you more stability and are much safer. The patient then ambulated 30 feetwith the wheeled walker with CGA and verbal cues to keep walker close and to slow down. Patient fatigued quickly but was much safer with the wheeled walker. Patient walked about 3 feet from the mat, then lunged for the mat to sit down. Patient was educatedon safety with the walker and instructed to remain in the walker until she gets all the way to the surface she is going to sit on, then sequencing to reach back for the surface for optimal safety. Patient was educated on the different goals of inpatient and outpatient therapy. ASSESSMENT: Other Details: Therapy Diagnosis: weakness, abnormal gait, abnormal posture, balance deficit Medical Diagnosis: Weakness Unspecified fall, initial encounter Blanca Nam is a 76 y.o. patient referred to Physical Therapy with deficits noted including impairments of decreased strength in her hips and core, decreased range of motion in her hips,decreased flexibility in hip flexors, increased pain in her back, knee and shoulder, postural faults and gait de viation which contribute to the following areas of functional restriction or limitation: pain and decreased safety with transfers, walking to get to the bathroom and around in her home and community,difficulty getting in and out of the car, difficulty with getting dressed and bathing, and frequentfalls making it difficult for her to leave her alone in the home for extended amounts of time. Clinical impression at this time: Patient will benefit from ongoing skilled Physical Therapy intervention. Rehab potential: fair. Complexities that are a barrier to service: fluctuating medical status and multiple comorbidities All charges entered today are appropriate and [...] relief, soft tissue extensibility and joint mobility (81116) - Therapeutic exercise program for: motion/mobility, strengthening, flexibility, and functional limitations (43681) - Therapeutic activities for functional activity education/training and in home safety recommendations as appropriate (02718) - Neuro Muscular Re-education for body mechanics education and postural re- education as appropriate(78545) - Patient education regarding posture, ergonomics, body mechanics, HEP progression and exercise performance - Individualized home exercise program - Modalities as needed for pain relief, anti-inflammatory effect and soft tissue extensibility - Gait training (60170) - Trigger point dry needling for pain relief and reducing tension in associated musculature (44710 or 86838) Precautions: Ankylosing spondylitis, fall risk Treatment may [...] leg documented in this encounter Care Teams Registration Clerk Relationship Specialty Start Date End Date Gagan Coyne MD [address] [place] [address] PCP - General Family Medicine 01/16/20 documented as of this encounter
--- OUTSIDE RECORDS SUMMARY | 2024-09-22 02:10 | XMS_ITS | Clinical Summary ---
Author Organization Unknown Care Team Providers Care Manager Green Name Role Phone RISKY DRAWBENCH OPERATOR HELPER, YOLANDA Unavailable Unavailable RONI RN, JULIAN Unavailable Unavailabl e JESSICA DIXONN, NATHALIE Unavailable Unavailable JOSHUA PT, BETSY Unavailable Unavailable MARCELO OT, ABNER Unavailable Unavailable CHELA MEDICATION AIDE, DENVER Unavailable Unavailabl e Payers Payer Name Policy Type Policy Number Effective Date Expira tion Date MEDICARE.[facility] [id number] Problems Condition Name Condition Details Condition Category Status Onset Date Resolution Date Last Treatment Date Treating Clinician Comments 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 Active 2023-09 00:00: 00 OTHER CHRONIC PAIN Active 2023-09 00:00: 00 RHEUMATOID ARTHRITIS W/O RHEUMATOID FACTOR, MULTIPLE SITES Active 2023-09 00:00: 00 TYPE 2 DIABETES MELLITUS WITH DIABETIC POLYNEUROPAT HY Active 2023-09 00:00: 00 URINARY TRACT INFECTION, SITE NOT SPECIFIED Active 2023-09 00:00: 00 ESSENTIAL (PRIMARY) HYPERTENSION Active 2023-09 00:00: 00 EMPHYSEMA, UNSPECIFIED Active 2023-09 00:00: 00 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 Active 2023-09 00:00: 00 PURE HYPERCHOLEST EROLEMIA, UNSPECIFIED Active 2023-09 0- 00:00: 00 OTHER SPECIFIED ANXIETY DISORDERS Active 2023-09 0- 00:00: 00 UNSPECIFIED MACULAR DEGENERATION Active 2023-09 0 00:00: 00 ATRIOVENTRIC ULAR BLOCK, FIRST DEGREE Active 2023-09 00:00: 00 ANEMIA, UNSPECIFIED Active 2023-09 0- 00:00: 00 OBESITY, UNSPECIFIED Active 2023-09- 00:00: 00 OBSTRUCTIVE SLEEP APNEA (ADULT) (PEDIATRIC) Active 2023-09 00:00: 00 ALCOHOL DEPENDENCE, UNCOMPLICATE D Active 2023-09 00:00: 00 FATTY (CHANGE OF) LIVER, NOT ELSEWHERE CLASSIFIED Active 2023-09 00:00: 00 VITAMIN B DEFICIENCY, UNSPECIFIED Active 09-16 00:00: 00 EPILEPSY, UNSP, NOT INTRACTABLE, WITHOUT STATUS EPILEPTICUS Active 09-16 00:00: 00 REPEATED FALLS Active 2023-09 00:00: 00 AGE-RELATED OSTEOPOROSIS W/O CURRENT PATHOLOGICAL FRACTURE Active 09-16 00:00: 00 HISTORY OF FALLING Active 2023-09 00:00: 00 PERSONAL HISTORY OF NICOTINE DEPENDENCE Active 09-16 00:00: 00 PRISON (CURRENT) USE OF ANTITHROMBOT ICS/ANTIPLAT ELETS Active 2023-09 00:00: 00 FLIGHT OPERATIONS MANAGER (CURRENT) USE OF ASPIRIN Active 2023-09 00:00: 00 CNTCT W AND EXPSR TO ENVIRON TOBACCO SMOKE (ACUTE) (CHRONIC) Active 09-16 00:00: 00 INSOMNIA, UNSPECIFIED Active 09-16 00:00: 00 DVRTCLOS OF INTEST, PART UNSP, 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/O BLEED Active 09-16 00:00: 00 GASTRO-ESOPH AGEAL REFLUX DISEASE WITHOUT ESOPHAGITIS Active 09-16 00:00: 00 PERSONAL HISTORY OF OTHER MALIGNANT NEOPLASM OF SKIN Active 09-16 00:00: 00 CATARACT EXTRACTION STATUS, UNSPECIFIED EYE Active 09-16 00:00: 00 PRESENCE OF INTRAOCULAR LENS Active 09-16 00:00: 00 PERSONAL HISTORY OF OTHER INFECTIOUS AND PARASITIC DISEASES Active 03-16 00:00: 00 Allergies, Adverse Reactions, Alerts Allergy Name Allergy Type Status Severity Reaction(s) Onset Date Inactive Date Treating Clinician Comments CEPHALEXIN Propensity to adverse reactions Active 2023-09 12:10: 05 IBUPROFEN Propensity to adverse reactions Active 2023-09 12:10: 14 Medications Ordered Medication Name Filled Medication Name Start Date Stop Date Current Medication? Ordering Clinician Indication Dosage Frequency Signature (SIG) Comments Components metoprolol succinate ER 50 mg tablet,exte nded release 24 hr 2023-09 0-18 00:00: 00 Yes [id number] BP 1 tablet DAILY 1 tablet DAILY (route: oral) Med Classific ation: Cardiovas cular Therapy Agents primidone 50 mg tablet 2023-09 0-18 00:00: 00 Yes [id number] TREMORS 1 tablet DAILY 1 tablet DAILY (route: oral) Med Classific ation: Central Nervous System Agents losartan 100 mg tablet 2023-09 0-16 00:00: 00 Yes [id number] BP 1 tablet DAILY 1 tablet DAILY (route: oral) Med Classific ation: Cardiovas cular Therapy Agents tramadol 50 mg tablet 2023-09 0-11 00:00: 00 Yes [id number] PAIN 1 tablet EVERY 6 HOURS NEEDED 1 tablet EVERY 6 HOURS NEEDED (route: oral) Med Classific ation: Analgesic , Anti-infl ammatory or Antipyret ic docusate sodium 100 mg capsule 2023-09 0-09 00:00: 00 Yes [id number] STOOL SOFTENER 1 capsule TWICE A DAY 1 capsule TWICE A DAY (route: oral) Med Classific ation: Gastroint estinal Therapy Agents hydrocortis one 2.5 % topical cream with perineal applicator 2023-09 0 00:00: 00 Yes [id number] HEMORRHOIDS Per instruc tions 1 APPLICATOR FUL RECTALLY DAILY NEEDED Per instructio ns 1 APPLICATOR FUL RECTALLY DAILY NEEDED (route: topical) Med Classific ation: Anorectal Preparati ons clotrimazol e-betametha sone 1 %-0.05 % topical cream 2023-09 0- 00:00: 00 07-16 00:00 :00 No [id number] Per instruc tions THREE TIMES DAILY NEEDED Per instructio ns THREE TIMES DAILY NEEDED (route: topical) Med Classific ation: Dermatolo gical fluconazole 150 mg tablet 2023-09 0- 00:00: 00 07-16 00:00 :00 No [id number] Per instruc tions ON DAYS Per instructio ns ON DAYS (route: oral) Med Classific ation: Anti-Infe ctive Agents hydroxyzine HCl 25 mg tablet 2023-09 0- 00:00: 00 Yes [id number] ITCHING 1 tablet EVERY DAY 1 tablet EVERY DAY (route: oral) Med Classific ation: Central Nervous System Agents pantoprazol e 40 mg tablet,michael yed release 06-15 00:00: 00 Yes [id number] GERD 1 tablet EVERY DAY 1 tablet EVERY DAY (route: oral) Med Classific ation: Gastroint estinal Therapy Agents amlodipine 5 mg tablet 2023-09 00:00: 00 Yes [id number] BP 2 tablet BEDTIME 2 tablet BEDTIME (route: oral) Med Classific ation: Cardiovas cular Therapy Agents Aspirin Childrens 81 mg chewable tablet 2023-09 00:00: 00 Yes [id number] BLOOD THINNER 1 tablet DAILY 1 tablet DAILY (route: oral) Med Classific ation: Hematolog ical Agents atorvastati n 40 mg tablet 2023-09 00:00: 00 Yes [id number] CHOLESTEROL 1 tablet DAILY 1 tablet DAILY (route: oral) Med Classific ation: Cardiovas cular Therapy Agents clopidogrel 75 mg tablet 2023-09 00:00: 00 Yes [id number] STROKE 1 tablet DAILY 1 tablet DAILY (route: oral) Med Classific ation: Hematolog ical Agents duloxetine 60 mg capsule,del ayed release 2023-09 00:00: 00 Yes [id number] MOOD 2 capsule DAILY 2 capsule DAILY (route: oral) Med Classific ation: Central Nervous System Agents folic acid 1 mg tablet 2023-09 00:00: 00 Yes [id number] SUPPLEMENT 1 tablet DAILY 1 tablet DAILY (route: oral) Med Classific ation: Electroly te Balance-N utritiona l Products hydralazine 25 mg tablet 2023-09 00:00: 00 Yes [id number] BLOOD PRESSURE 1 tablet 3 TIMES DAILY 1 tablet 3 TIMES DAILY (route: oral) Med Classific ation: Cardiovas cular Therapy Agents lamotrigine 25 mg tablet 2023-09 00:00: 00 Yes [id number] SUPPLEMENT 1 tablet EVERY 12 HOURS 1 tablet EVERY 12 HOURS (route: oral) Med Classific ation: Central Nervous System Agents lorazepam 0.5 mg tablet 2023-09 00:00: 00 Yes [id number] ANXIETY 1 tablet 3 TIMES DAILY 1 tablet 3 TIMES DAILY (route: oral) Med Classific ation: Central Nervous System Agents multivitami n tablet 2023-09 00:00: 00 Yes [id number] SUPPLEMENT 2 tablet DAILY 2 tablet DAILY (route: oral) Med Classific ation: Electroly te Balance-N utritiona l Products nitrofurant oin macrocrysta l 100 mg capsule 2023-09 00:00: 00 07-30 23:59 :00 No [id number] UTI 1 capsule EVERY 12 HOURS 1 capsule EVERY 12 HOURS (route: oral) Med Classific ation: Genitouri nary Therapy thiamine HCl (vitamin B1) 100 mg tablet 2023-09 00:00: 00 Yes [id number] SUPPLEMENT 1 tablet DAILY 1 tablet DAILY (route: oral) Med Classific ation: Electroly te Balance-N utritiona l Products trazodone 100 mg tablet 2023-09 00:00: 00 Yes [id number] SLEEP 1 tablet BEDTIME 1 tablet BEDTIME (route: oral) Med Classific ation: Central Nervous System Agents Vital Signs Vital Name Observation Time Observation Value Commen ts Temperature 2024-07-16 12:28:00.000 97.8 [degF] BMI (%) 2024-07-16 12:28:00.000 31 kg/m2 Height 2024-07-16 12:28:00.000 61 [in_us] Pulse 2024-07-16 12:38:00.000 60 /min O2 Saturation (%) 2024-07-16 12:28:00.000 96 % Respirations 2024-07-16 12:28:00.000 18 /min Weight (lbs) 2024-07-16 12:28:00.000 167 [lb_av] Systolic Blood Pressure 2024-07-16 12:28:00.000 146 mm [Hg] Diastolic Blood Pressure 2024-07-16 12:28:00.000 68 mm [Hg] Plan of Treatment Planned Activity Planned Date Details Comments Future Scheduled Test RN TO OBSE RVE, ASSESS, EVALUATE, AND DEVELOP AN INDIVIDUALIZED PLAN OF CARE. AGENCY MAY ACCEPT ORDERS FROM CONSULTING PHYSICIANS DRAWBENCH OPERATOR HELPER RISKY. RN TO OBSERVE AND ASSESS, RADIATOR FITTER/CERTIFIED WELLNESS PROGRAM COORDINATOR TO OBSERVE FOR RISK FOR FALLS AND INSTRUCT IN FALL PREVENTION, HOME SAFETY, MEDICATION MANAGEMENT, INFECTION PREVENTION, AND NUTRITION MANAGEMENT. RN/RADIATOR FITTER/CERTIFIED WELLNESS PROGRAM COORDINATOR NURSE MAY PERFORM O2 SATURATION LEVEL ON ADMISSION AND PRN FOR FOR RN TO ASSESS/RADIATOR FITTER TO OBSERVE PATIENT, WITH NOTIFICATION TO THE PHYSICIAN IF SATURATION IS 90% IN THE ABSENCE OF MORE SPECIFIC PARAMETERS FROM THE PHYSICIAN. AGENCY MAY PERFORM A RESUMPTION OF CARE VISIT FOLLOWING ANY HOSPITAL ADMISSION. RN/RADIATOR FITTER/CERTIFIED WELLNESS PROGRAM COORDINATOR TO MONITOR CO-MORBID CONDITIONS LISTED ON THE PLAN OF CARE AND ANY NEW CONDITIONS THAT PRESENT THEMSELVES DURING THIS EPISODE TO IDENTIFY CHANGES AND INTERVENE TO MINIMIZE COMPLICATIONS. [code = RN TO OBSERVE, ASSESS, EVALUATE, AND DEVELOP AN INDIVIDUALIZED PLAN OF CARE. AGENCY MAY ACCEPT ORDERS FROM CONSULTING PHYSICIANS DRAWBENCH OPERATOR HELPER RISKY. RN TO OBSERVE AND ASSESS, RADIATOR FITTER/CERTIFIED WELLNESS PROGRAM COORDINATOR TO OBSERVE FOR RISK FOR FALLS AND INSTRUCT IN FALL PREVENTION, HOME SAFETY, MEDICATION MANAGEMENT, INFECTION PREVENTION, AND NUTRITION MANAGEMENT. RN/RADIATOR FITTER/CERTIFIED WELLNESS PROGRAM COORDINATOR NURSE MAY PERFORM O2 SATURATION LEVEL ON ADMISSION AND PRN FOR FOR RN TO ASSESS/RADIATOR FITTER TO OBSERVE PATIENT, WITH NOTIFICATION TO THE PHYSICIAN IF SATURATION IS 90% IN THE ABSENCE OF MORE SPECIFIC PARAMETERS FROM THE PHYSICIAN. AGENCY MAY PERFORM A RESUMPTION OF CARE VISIT FOLLOWING ANY HOSPITAL ADMISSION. RN/RADIATOR FITTER/CERTIFIED WELLNESS PROGRAM COORDINATOR TO MONITOR CO-MORBID CONDITIONS LISTED ON THE PLAN OF CARE AND ANY NEW CONDITIONS THAT PRESENT THEMSELVES DURING THIS EPISODE TO IDENTIFY CHANGES AND INTERVENE TO MINIMIZE COMPLICATIONS.] Future Scheduled Test MEDICATION MANAGEMENT; RN/RADIATOR FITTER/CERTIFIED WELLNESS PROGRAM COORDINATOR TO REVIEW MEDICATIONS FOR INTERACTIONS, EFFECTIVENESS OF DRUG THERAPY, AND SIGNS/SYMPTOMS OF ADVERSE REACTIONS. MAY INSTRUCT AND REINFORCE MEDICATION TEACHING RELATED TO THE USE OF MEDICATIONS, DOSAGE, FREQUENCY, PURPOSE, SIDE EFFECTS, AND TO REPORT COMPLICATIONS. [code = MEDICATION MANAGEMENT; RN/RADIATOR FITTER/CERTIFIED WELLNESS PROGRAM COORDINATOR TO REVIEW MEDICATIONS FOR INTERACTIONS, EFFECTIVENESS OF DRUG THERAPY, AND SIGNS/SYMPTOMS OF ADVERSE REACTIONS. MAY INSTRUCT AND REINFORCE MEDICATION TEACHING RELATED TO THE USE OF MEDICATIONS, DOSAGE, FREQUENCY, PURPOSE, SIDE EFFECTS, AND TO REPORT COMPLICATIONS.] Future Scheduled Test RISK FOR H OSPITALIZATION; RN TO ASSESS/TEACH, CERTIFIED WELLNESS PROGRAM COORDINATOR/RADIATOR FITTER TO OBSERVE/TEACH PATIENT/CAREGIVER ON RISK FOR HOSPITALIZATION/EMERGENCY ROOM VISITS, TEACH SIGNS AND SYMPTOMS THAT PUT PATIENT AT RISK, WHEN TO NOTIFY NURSE/PHYSICIAN OF COMPLICATIONS/DECLINE, AND WHEN TO CALL 911. [code = RISK FOR HOSPITALIZATION; RN TO ASSESS/TEACH, CERTIFIED WELLNESS PROGRAM COORDINATOR/RADIATOR FITTER TO OBSERVE/TEACH PATIENT/CAREGIVER ON RISK FOR HOSPITALIZATION/EMERGENCY ROOM VISITS, TEACH SIGNS AND SYMPTOMS THAT PUT PATIENT AT RISK, WHEN TO NOTIFY NURSE/PHYSICIAN OF COMPLICATIONS/DECLINE, AND WHEN TO CALL 911.] Future Scheduled Test CARDIOVASC ULAR SYSTEM; RN TO ASSESS/TEACH, RADIATOR FITTER/CERTIFIED WELLNESS PROGRAM COORDINATOR TO OBSERVE/TEACH RELATED TO ALTERED CARDIOVASCULAR STATUS TO MINIMIZE COMPLICATIONS AND REDUCE HOSPITALIZATION. [code = CARDIOVASCULAR SYSTEM; RN TO ASSESS/TEACH, RADIATOR FITTER/CERTIFIED WELLNESS PROGRAM COORDINATOR TO OBSERVE/TEACH RELATED TO ALTERED CARDIOVASCULAR STATUS TO MINIMIZE COMPLICATIONS AND REDUCE HOSPITALIZATION.] Future Scheduled Test HYPERTENSI ON MANAGEMENT; RN TO ASSESS AND TEACH, RADIATOR FITTER/CERTIFIED WELLNESS PROGRAM COORDINATOR TO OBSERVE AND TEACH WARNING SIGNS AND SYMPTOMS TO AVOID HOSPITALIZATION. [code = HYPERTENSION MANAGEMENT; RN TO ASSESS AND TEACH, RADIATOR FITTER/CERTIFIED WELLNESS PROGRAM COORDINATOR TO OBSERVE AND TEACH WARNING SIGNS AND SYMPTOMS TO AVOID HOSPITALIZATION.] Future Scheduled Test RESPIRATOR Y SYSTEM MANAGEMENT; RN TO ASSESS AND TEACH, RADIATOR FITTER/CERTIFIED WELLNESS PROGRAM COORDINATOR TO OBSERVE AND TEACH RELATED TO ALTERED RESPIRATORY STATUS TO MINIMIZE COMPLICATIONS AND REDUCE HOSPITALIZATION. [code = RESPIRATORY SYSTEM MANAGEMENT; RN TO ASSESS AND TEACH, RADIATOR FITTER/CERTIFIED WELLNESS PROGRAM COORDINATOR TO OBSERVE AND TEACH RELATED TO ALTERED RESPIRATORY STATUS TO MINIMIZE COMPLICATIONS AND REDUCE HOSPITALIZATION.] Future Scheduled Test COPD MANAG EMENT; RN TO ASSESS AND TEACH, RADIATOR FITTER/CERTIFIED WELLNESS PROGRAM COORDINATOR TO OBSERVE AND TEACH SIGNS/SYMPTOMS OF COPD EXACERBATION AND PROVIDE EARLY INTERVENTIONS TO MINIMIZE RISK OF HOSPITALIZATION. RN/RADIATOR FITTER/CERTIFIED WELLNESS PROGRAM COORDINATOR TO INSTRUCT ON SELF-CARE MANAGEMENT INCLUDING BREATHING TECHNIQUES, AIRWAY CLEARANCE, AND PROPER USE OF COPD MEDICATIONS. RN TO ASSESS AND TEACH, RADIATOR FITTER/CERTIFIED WELLNESS PROGRAM COORDINATOR TO OBSERVE AND TEACH PATIENT/CAREGIVER ABILITY TO MONITOR AND RECORD VITAL SIGNS INCLUDING PULSE OXIMETRY AND BLOOD PRESSURE. PULSE OXIMETER AND BP MONITOR TO BE PROVIDED IF NEEDED. [code = COPD MANAGEMENT; RN TO ASSESS AND TEACH, RADIATOR FITTER/CERTIFIED WELLNESS PROGRAM COORDINATOR TO OBSERVE AND TEACH SIGNS/SYMPTOMS OF COPD EXACERBATION AND PROVIDE EARLY INTERVENTIONS TO MINIMIZE RISK OF HOSPITALIZATION. RN/RADIATOR FITTER/CERTIFIED WELLNESS PROGRAM COORDINATOR TO INSTRUCT ON SELF-CARE MANAGEMENT INCLUDING BREATHING TECHNIQUES, AIRWAY CLEARANCE, AND PROPER USE OF COPD MEDICATIONS. RN TO ASSESS AND TEACH, RADIATOR FITTER/CERTIFIED WELLNESS PROGRAM COORDINATOR TO OBSERVE AND TEACH PATIENT/CAREGIVER ABILITY TO MONITOR AND RECORD VITAL SIGNS INCLUDING PULSE OXIMETRY AND BLOOD PRESSURE. PULSE OXIMETER AND BP MONITOR TO BE PROVIDED IF NEEDED.] Future Scheduled Test PAIN MANAG EMENT; RN TO ASSESS AND TEACH, CERTIFIED WELLNESS PROGRAM COORDINATOR/RADIATOR FITTER TO OBSERVE AND TEACH AND PROVIDE EDUCATION ON PAIN MANAGEMENT TECHNIQUES. [code = PAIN MANAGEMENT; RN TO ASSESS AND TEACH, CERTIFIED WELLNESS PROGRAM COORDINATOR/RADIATOR FITTER TO OBSERVE AND TEACH AND PROVIDE EDUCATION ON PAIN MANAGEMENT TECHNIQUES.] Future Scheduled Test GENITOURIN FELICE MANAGEMENT; RN TO ASSESS AND TEACH, RADIATOR FITTER/CERTIFIED WELLNESS PROGRAM COORDINATOR TO OBSERVE AND TEACH RELATED TO ALTERED GENITOURINARY STATUS TO MINIMIZE COMPLICATIONS AND REDUCE HOSPITALIZATION. [code = GENITOURINARY MANAGEMENT; RN TO ASSESS AND TEACH, RADIATOR FITTER/CERTIFIED WELLNESS PROGRAM COORDINATOR TO OBSERVE AND TEACH RELATED TO ALTERED GENITOURINARY STATUS TO MINIMIZE COMPLICATIONS AND REDUCE HOSPITALIZATION.] Future Scheduled Test URINARY IN CONTINENCE MANAGEMENT; RN TO ASSESS AND TEACH, RADIATOR FITTER/LVNTO OBSERVE AND TEACH MANAGEMENT OF URINARY INCONTINENCE. TEACH/INSTRUCT ON PREVENTING INFECTION AND SKIN BREAKDOWN. RN/RADIATOR FITTER/CERTIFIED WELLNESS PROGRAM COORDINATOR MAY INSTRUCT IN BLADDER TRAINING PROGRAM INDICATED. [code = URINARY INCONTINENCE MANAGEMENT; RN TO ASSESS AND TEACH, RADIATOR FITTER/LVNTO OBSERVE AND TEACH MANAGEMENT OF URINARY INCONTINENCE. TEACH/INSTRUCT ON PREVENTING INFECTION AND SKIN BREAKDOWN. RN/RADIATOR FITTER/CERTIFIED WELLNESS PROGRAM COORDINATOR MAY INSTRUCT IN BLADDER TRAINING PROGRAM INDICATED.] Future Scheduled Test URINARY TR ACT INFECTION MANAGEMENT; RN/CERTIFIED WELLNESS PROGRAM COORDINATOR/RADIATOR FITTER TO PROVIDE SKILLED TEACHING AND SELF- CARE MANAGEMENT RELATED TO UTI TO MINIMIZE COMPLICATIONS AND REDUCE THE RISK OF HOSPITALIZATION. [code = URINARY TRACT INFECTION MANAGEMENT; RN/CERTIFIED WELLNESS PROGRAM COORDINATOR/RADIATOR FITTER TO PROVIDE SKILLED TEACHING AND SELF- CARE MANAGEMENT RELATED TO UTI TO MINIMIZE COMPLICATIONS AND REDUCE THE RISK OF HOSPITALIZATION.] Future Scheduled Test NEUROLOGIC AL SYSTEM MANAGEMENT; RN TO ASSESS AND TEACH, CERTIFIED WELLNESS PROGRAM COORDINATOR/RADIATOR FITTER TO OBSERVE AND TEACH RELATED TO ALTERED NEUROLOGICAL STATUS TO MINIMIZE COMPLICATIONS AND REDUCE HOSPITALIZATION. [code = NEUROLOGICAL SYSTEM MANAGEMENT; RN TO ASSESS AND TEACH, CERTIFIED WELLNESS PROGRAM COORDINATOR/RADIATOR FITTER TO OBSERVE AND TEACH RELATED TO ALTERED NEUROLOGICAL STATUS TO MINIMIZE COMPLICATIONS AND REDUCE HOSPITALIZATION.] Future Scheduled Test CEREBRAL V ASCULAR ACCIDENT MANAGEMENT; RN/CERTIFIED WELLNESS PROGRAM COORDINATOR/RADIATOR FITTER TO PROVIDE SKILLED TEACHING AND MANAGEMENT OF POST CEREBRAL VASCULAR ACCIDENT. [code = CEREBRAL VASCULAR ACCIDENT MANAGEMENT; RN/CERTIFIED WELLNESS PROGRAM COORDINATOR/RADIATOR FITTER TO PROVIDE SKILLED TEACHING AND MANAGEMENT OF POST CEREBRAL VASCULAR ACCIDENT.] Future Scheduled Test FALL REDUC TION MANAGEMENT; RN TO ASSESS AND TEACH, RADIATOR FITTER/CERTIFIED WELLNESS PROGRAM COORDINATOR TO OBSERVE AND TEACH ON EDUCATION AND INTERVENTION TO IDENTIFY FALL RISK FACTORS SUCH MEDICATIONS THAT MAY CAUSE DIZZINESS, CHRONIC DISEASES, PSYCHOLOGICAL FACTORS, AND EMPOWER/EDUCATE PATIENT/CAREGIVER TO MINIMIZE FALL RISK. [code = FALL REDUCTION MANAGEMENT; RN TO ASSESS AND TEACH, RADIATOR FITTER/CERTIFIED WELLNESS PROGRAM COORDINATOR TO OBSERVE AND TEACH ON EDUCATION AND INTERVENTION TO IDENTIFY FALL RISK FACTORS SUCH MEDICATIONS THAT MAY CAUSE DIZZINESS, CHRONIC DISEASES, PSYCHOLOGICAL FACTORS, AND EMPOWER/EDUCATE PATIENT/CAREGIVER TO MINIMIZE FALL RISK.] Future Scheduled Test PHYSICAL T HERAPIST TO EVALUATE FOR PAIN AND WEAKNESS [code = PHYSICAL THERAPIST TO EVALUATE FOR PAIN AND WEAKNESS] Future Scheduled Test OCCUPATION AL THERAPIST TO EVALUATE FOR PAIN AND WEAKNESS [code = OCCUPATIONAL THERAPIST TO EVALUATE FOR PAIN AND WEAKNESS] Future Scheduled Test RN/RADIATOR FITTER/CERTIFIED WELLNESS PROGRAM COORDINATOR TO PERFORM/TEACH PATIENT/CAREGIVER WOUND CARE TO 1 SKIN TEAR ON LEFT WILLIAM AND 2 SKIN TEARS ON RIGHT WILLIAM: CLEANSE WITH WOUND CLEANSER, COVER WITH FOAM DRESSING EVERY 3 DAYS, CHANGE DRESSING EVERY 3 DAYS [code = RN/RADIATOR FITTER/CERTIFIED WELLNESS PROGRAM COORDINATOR TO PERFORM/TEACH PATIENT/CAREGIVER WOUND CARE TO 1 SKIN TEAR ON LEFT WILLIAM AND 2 SKIN TEARS ON RIGHT WILLIAM: CLEANSE WITH WOUND CLEANSER, COVER WITH FOAM DRESSING EVERY 3 DAYS, CHANGE DRESSING EVERY 3 DAYS ] Goal 2024-07-17 Patient Goal - I NCREASED STRENGTH AND ENDURANCE. FALL PREVENTION Goal Provider Goal - A PLAN OF CARE WILL BE ESTABLISHED THAT MEETS THE PATIENTS NEEDS. PATIENT WILL DEMONSTRATE OXYGEN SATURATION WITHIN NORMAL LIMITS OR PATIENTS OPTIMAL LEVEL ESTABLISHED BY THE PHYSICIAN THROUGHOUT CARE. CHANGES TO CO-MORBID CONDITIONS AND ANY NEW CONDITIONS WILL BE IDENTIFIED AND REPORTED TO THE PHYSICIAN. Goal Provider Goal - PATIENT/CAREGIVER TO VERBALIZE, AND CONSISTENTLY DEMONSTRATE EFFECTIVE, SAFE MANAGEMENT OF MEDICATION INCLUDING KNOWLEDGE OF EFFECTIVENESS, POTENTIAL SIDE EFFECTS AND DRUG REACTIONS AND WHEN TO CONTACT THE APPROPRIATE CARE PROVIDER. PATIENT/CAREGIVER WILL BE ABLE TO VERBALIZE UNDERSTANDING OF MEDICATION REGIMEN AND ACCURATELY TAKE MEDICATIONS PRESCRIBED WITHOUT ADVERSE EFFECTS BY EOE Goal Provider Goal - PATIENT/CAREGIVER WILL VERBALIZE UNDERSTANDING OF SIGNS AND SYMPTOMS THAT PUT THE PATIENT AT RISK FOR HOSPITALIZATION /EMERGENCY ROOM VISITS, WHEN TO NOTIFY NURSE/PHYSICIAN OF COMPLICATIONS/DECLINE AND WHEN TO CALL 911. Goal Provider Goal - PATIENT / CAREGIVER WILL VERBALIZE/DEMONSTRATE UNDERSTANDING OF MEASURES TO MANAGE ALTERED CARDIOVASCULAR STATUS BY EOE. Goal Provider Goal - PATIENT / CAREGIVER WILL VERBALIZE/DEMONSTRATE AN ABILITY TO ADHERE TO SELF-MANAGEMENT OF HTN TO MINIMIZE COMPLICATIONS AND AVOID HOSPITALIZATION BY END OF EPISODE. Goal Provider Goal - PATIENT / CAREGIVER WILL VERBALIZE/DEMONSTRATE UNDERSTANDING OF MEASURES TO MANAGE ALTERED RESPIRATORY STATUS BY END OF EPISODE. Goal Provider Goal - PATIENT / CAREGIVER WILL VERBALIZE/DEMONSTRATE AN ABILITY TO ADHERE TO SELF-MANAGEMENT OF COPD TO MINIMIZE COMPLICATIONS AND AVOID HOSPITALIZATION BY END OF EPISODE. Goal Provider Goal - PATIENT / CAREGIVER WILL VERBALIZE / DEMONSTRATE UNDERSTANDING OF PAIN CONTROL MEASURES BY EOE Goal Provider Goal - PATIENT / CAREGIVER WILL VERBALIZE/DEMONSTRATE UNDERSTANDING OF MEASURES TO MANAGE ALTERED GENITOURINARY STATUS BY END OF EPISODE. Goal Provider Goal - PATIENT/CAREGIVER WILL VERBALIZE/DEMONSTRATE UNDERSTANDING OF CARE AND MANAGEMENT OF URINARY INCONTINENCE BY EOE. Goal Provider Goal - PATIENT/CAREGIVER WILL VERBALIZE/DEMONSTRATE UNDERSTANDING OF CARE AND MANAGEMENT OF URINARY TRACT INFECTION BY EOE. Goal Provider Goal - PATIENT / CAREGIVER WILL VERBALIZE/DEMONSTRATE UNDERSTANDING OF MEASURES TO MANAGE ALTERED NEUROLOGICAL STATUS BY EOE. Goal Provider Goal - PATIENT / CAREGIVER WILL VERBALIZE/DEMONSTRATE CARE AND SELF-MANAGEMENT OF CVA TO MINIMIZE COMPLICATIONS AND AVOID HOSPITALIZATION BY END OF EPISODE. Goal Provider Goal - PATIENT/CAREGIVER ABLE TO IDENTIFY FALL RISK FACTORS AND IMPLEMENT STRATEGIES TO MINIMIZE FALL RISK. PATIENT/CAREGIVER WILL VERBALIZE/DEMONSTRATE AN ABILITY TO ADHERE TO FALL REDUCTION SELF-MANAGEMENT AND LIFE-STYLE CHANGES AT DISCHARGE. PERSONAL GOAL(S) STATED BY PATIENT/CAREGIVER WILL BE MET BY EOE. Goal Provider Goal - Goal Provider Goal - Goal Provider Goal - PATIENT / CAREGIVER WILL VERBALIZE/DEMONSTRATE ABILITY TO PERFORM WOUND CARE. WOUND STATUS WILL IMPROVE EVIDENCED BY A DECREASE IN SIZE, DRAINAGE, ABSENCE OF INFECTION, AND DECREASED PAIN BY EOE. Reason for Visit PATIENT IN FACILITY AT END OF EPISODE Encounters Start Date/Time End Date/Time Encounter Type Admission Type Attending [facility] Care Facility Care Department Encounter ID Discharge Date Discharge Status Discharge Condition Discharge Reason Percent Goals Met 2024-07-16 00:00:00 2024-07-17 00:00:00 Outpatient NEW ADMISSION JULIAN TAMAYO [facility] [id number] 2024-07-17 00:00:00 DISCHARGED /TRANSFERR ED TO A SHORT-TERM [facility] FOR INPATIENT CARE PATIENT IN FACILITY AT END OF EPISODE [facility] ONLY - TRANSFER TO HOSPITAL 100.00
--- OUTSIDE RECORDS SUMMARY | 2024-09-22 02:11 | XMS_ITS | Continuity of Care Document ---
Author Organization [facility] Address [address] [place] [address] [address] [place] [address] Phone Care Team Providers Care Kettle Cook Name Role Phone Bhavani PT, CMPT, Ant Unavailable Cristine vailable Procedures Procedure Date Therapeutic Exercise Hot or Cold Pack PT Evaluation Moderate Complexity Therapeutic Exercise Hot or Cold Pack Mobility: Walking And Moving Limitations -Curent Mobility: Walking And Moving Limitation- Goal Progress Note THERAPEUTIC EXERCISES NEUROMUSCULAR RE-ED MANUAL THERAPY FUNC ACTIVITY HOT/COLD PACK Mobility: Walking And Moving Limitations -Curent Mobility: Walking And Moving Limitation- Goal Medications Name Dose Freq Route DOC May THERAPEUTIC EXERCISES NEUROMUSCULAR RE-ED MANUAL THERAPY FUNC ACTIVITY HOT/COLD PACK THERAPEUTIC EXERCISES NEUROMUSCULAR RE-ED MANUAL THERAPY FUNC ACTIVITY HOT/COLD PACK THERAPEUTIC EXERCISES NEUROMUSCULAR RE-ED MANUAL THERAPY FUNC ACTIVITY HOT/COLD PACK THERAPEUTIC EXERCISES NEUROMUSCULAR RE-ED MANUAL THERAPY FUNC ACTIVITY HOT/COLD PACK ELECTRIC STIMULATION UNATT Progress Note THERAPEUTIC EXERCISES NEUROMUSCULAR RE-ED MANUAL THERAPY FUNC ACTIVITY HOT/COLD PACK ELECTRIC STIMULATION UNATT Mobility: Walking And Moving Limitations -Curent Mobility: Walking And Moving Limitation- Goal Medications Name Dose Freq Route DOC Apr THERAPEUTIC EXERCISES NEUROMUSCULAR RE-ED MANUAL THERAPY FUNC ACTIVITY HOT/COLD PACK ELECTRIC STIMULATION UNATT THERAPEUTIC EXERCISES NEUROMUSCULAR RE-ED MANUAL THERAPY FUNC ACTIVITY HOT/COLD PACK ELECTRIC STIMULATION UNATT THERAPEUTIC EXERCISES MANUAL THERAPY FUNC ACTIVITY HOT/COLD PACK ELECTRIC STIMULATION UNATT THERAPEUTIC EXERCISES MANUAL THERAPY FUNC ACTIVITY HOT/COLD PACK ELECTRIC STIMULATION UNATT PT RE-EVALUATION THERAPEUTIC EXERCISES MANUAL THERAPY HOT/COLD PACK ELECTRIC STIMULATION UNATT Mobility: Walking And Moving Limitations -Curent Mobility: Walking And Moving Limitation- Goal Medications Name Dose Freq Route DOC Apr THERAPEUTIC EXERCISES MANUAL THERAPY HOT/COLD PACK THERAPEUTIC EXERCISES MANUAL THERAPY HOT/COLD PACK THERAPEUTIC EXERCISES MANUAL THERAPY HOT/COLD PACK THERAPEUTIC EXERCISES NEUROMUSCULAR RE-ED MANUAL THERAPY HOT/COLD PACK PT EVALUATION THERAPEUTIC EXERCISES MANUAL THERAPY HOT/COLD PACK Carrying, Moving And Handling Objects-Cu rrent Carrying, Moving And Handling Objects-Go al Medications Name Dose Freq Route DOC Apr Pain Assess Positive DOC 2015 BMI High F/U Plan DOC No Falls or 1 Fall w/o Injury Screened f or Fall Risk Functional Outcome Assessmen t documented, deficits identified, treatment plan es Advance Directives Directive Yes / No Effective Date File Name No Information Encounters Encounter Description Practice Location Reason(s) For Visit Diagnoses Date Provider Providers Copied on Encounter [facility] [address] [facility], [place], [place], [id number], tel:[phone] [place] No Information 8 Cherri Cain. [address] [place] [address], [address], [facility], . tel:[phone] [facility], [place], [place], [id number], tel:[phone] [place] Low back painPain in right hipMuscle weakness (generalized)Myalgia Ankylosing spondylitis of multiple sites in spine 8 Cherri Cain. [address] [place] [address], [address], [place], [facility], . tel:[phone] Referring Provider: Everardo Johns Suite [facility], [place], [place], [facility]. tel:[phone] [facility] [facility] [address], [place], [place], [id number], tel:[phone] [place] Low back painPain in right hipMuscle weakness (generalized)Myalgia Ankylosing spondylitis of multiple sites in spine 8 Cherri Cain. [address] [place] [address], [address], [facility], . tel:[phone] Referring Provider: Everardo Johns [address], [address]. tel:[phone] [address], [place], [place], [id number], tel:[phone] [place] No Information Sep-3 0-201 6 Espinosa-Mejia es Ant. [address] [place] [address], [address], [place], [place], [facility], . tel:[phone] Referring Provider: Shahriar Cook [address] [facility] [address], [place], [place], [facility]. tel:[phone] [address], [place], [place], [id number], tel:[phone] [place] No Information Sep-2 3-201 6 Espinosa-Mejia es Ant. [address] [place] [address], [address], [facility], . tel:[phone] Referring Provider: Shahriar Cook [address] [facility] [address], [place], [facility]. tel:[phone] [address], [place], [place], [id number], [place] tel:[phone] [place] No Information Sep-2 1-201 6 Espinosa-Mejia es Ant. [address] [place] [address], [address], [place], [facility], [place]. tel:[phone] Referring Provider: Everardo Johns [address], [place], [address]. tel:[phone] [address], [place], [place], [id number], [place] tel:[phone] [place] No Information Sep-1 2-201 6 Espinosa-Mejia es Ant. [address] [place] [address], [address], [facility], . tel:[phone] Referring Provider: Meri Johns0 [address], [place], [address]. tel:[phone] [address], [place], [place], [address], tel:[phone] [place] No Information May-0 6 Espinosa-Mejia es Ant. [address] [place] [address], [address], [place], [facility], . tel:[phone] Referring Provider: Shahriar Cook [address] [place] [place] [address] [address], [place], [facility]. tel:[phone] [facility] [address] [facility] [address], [place], [place], [id number], tel:[phone] [place] No Information Apr- 6 Espinosa-Mejia es Ant. [address] [place] [address], [address], [place], [facility], . tel:[phone] Referring Provider: Shahriar Cook [address] [place] [place] [address] [address], [place], [facility]. tel:[phone] [facility] [address] [facility] [address], [place], [place], [id number], tel:[phone] [place] No Information 6 Espinosa-Mejia es Ant. [address] [place] [address], [address], [place], [facility], [place]. tel:[phone] Referring Provider: Shahriar Cook [address] [place] [place] [address] [address], [place], [facility]. tel:[phone] [facility] [address] [facility] [address] [place] [address], [id number], tel:[phone] [place] No Information 6 Espinosa-Mejia es Ant. [address] [place] [address], [address], [facility], . tel:[phone] Referring Provider: Shahriar Cook [address] [place] [address] [address], [place], [address]. tel:[phone] [facility] [address], [id number], [place] tel:[phone] [place] No Information 6 Espinosa-Mejia es Ant. [address] [facility], [address], [place], [facility], [place]. tel:[phone] Referring Provider: Shahriar Cook, [facility] [facility] [address], [place], [address]. tel:[phone] [facility] [facility] [address], [place], [place], [id number], tel:[phone] [place] No Information 6 Espinosa-Mejia es Ant. [address] [facility], [address], [place], [facility], [place]. tel:[phone] Referring Provider: Shahriar Cook, [facility] [address], [place], [address]. tel:[phone] [facility] [address] [facility] [address], [place], [place], [id number], [place] tel:[phone] [place] Muscle weakness (generalized)Other dorsalgiaStiffness of unspecified joint, not elsewhere classifiedAnkylosing spondylitis of unspecified sites in spine 6 Espinosa-Mejia es Ant. [address] [facility], [address], [place], [facility], [place]. tel:[phone] Referring Provider: Shahriar Cook [facility] [address], [place], [address]. tel:[phone] [facility] [address] [facility], [place], [place], [id number], [place] tel:[phone] [place] No Information 6 Espinosa-Mejia es Nat. [address] [facility], [address], [place], [address], [place]. tel:[phone] Referring Provider: Shahriar Cook [facility] [address], [place], [address]. tel:[phone] [facility] [facility] [address], [place], [place], [id number], [place] tel:[phone] [place] No Information 6 Cherri Cain. [address] [facility], [address], [place], [facility], . tel:[phone] Referring Provider: Shahriar Cook [address] [place] [address] [address], [place], [facility]. tel:[phone], [id number], tel:[phone] [place] No Information 6 Cherri Cain. [address] [place] [address], [address], [facility], . tel:[phone] Referring Provider: Shahriar Cook [address] [place] [address], [facility]. tel:[phone], [id number], tel:[phone] [place] No Information 6 Adriel Siddiqi. [address] [facility], [address], [place], [facility], . tel:[phone] Referring Provider: Shahriar Cook [address] [place] [place] [address] [address], [place], [facility]. tel:[phone], [id number], tel:[phone] [place] Stiffness of left shoulder, not elsewhere classifiedPain in left shoulderAdhesive capsulitis of left shoulder 6 Sary Amos. [address] [facility], [facility] [address], [place], [facility], . tel:[phone] Referring Provider: Shahriar Cook [address] [place] [address] [address], [place], [address]. tel:[phone] Family History Family Member Type Diagnosis Age At Onset No Information Payers Payer name Insurance type Covered libertarian ID Authoriza tiprecious(s) [place] [id number] [facility] [id number] Social History Type Description Quantity Date Captured [...]
== END 2024-09-15 12:54 | disposition home or self-care (01) ==
PROVIDERS: Emergency Provider Emergency Medicine; PCP Emergency Medicine
DX: S09.90XA Unspecified injury of head, initial encounter (principal); W01.0XXA Fall on same level from slipping, tripping and stumbling without subsequent striking against object, initial encounter; M81.0 Age-related osteoporosis without current pathological fracture; E11.9 Type 2 diabetes mellitus without complications; I10 Essential (primary) hypertension; F41.8 Other specified anxiety disorders; E53.8 Deficiency of other specified B group vitamins; K21.9 Gastro-esophageal reflux disease without esophagitis; E78.2 Mixed hyperlipidemia; H35.30 Unspecified macular degeneration
CPT/HCPCS: 70450; 72125; 99284

== ENCOUNTER 2024-11-10 12:53 | Inpatient (IN) | payer MEDICARE, OTHER, SELFPAY ==
[2024-11-10] VITALS (13 sets, daily range): BP systolic 161–180; BP diastolic 47–84; PULSE 68–87; RESP 15–18; TEMP 36.3–36.9; O2SAT 93–96; BMI 31.6
--- NOTE | ~2024-11-10 | CT_ITS ---
Clinical indication:Fall. Anterior rib pain COMPARISON:08/14/2024 TECHNIQUE: Multiple contiguous axial images of the chest were performed without the administration of intravenous contrast. FINDINGS: LUNG:Redemonstration of asymmetric right-sided pleural thickening, unchanged from prior. Lungs are otherwise clear. MEDIASTINUM:No pathologically enlarged or morphologically suspicious lymph nodes within the mediastin um. HEART:Enlarged, unchanged. SOFT TISSUES OF THE CHEST: Unremarkable BONES OF THE CHEST: No acute rib fractures are appreciated. VISUALIZED PORTION OF THE UPPER ABDOMEN: The gallbladder is minimally distended, and otherwise unrema rkable. No perihepatic fluid or perisplenic fluid is present. IMPRESSION: No acute findings within the chest, as detailed above. Reviewed, dictated and finalized at location A. UCT SUPPORT ENGINEER
--- NOTE | ~2024-11-10 | CT_ITS ---
History: Fall PROCEDURE: CT head without contrast. COMPARISON: 09/14/2024 TECHNIQUE: Axial imaging of the head performed from the skull base to the vertex without IV contrast. Sagittal a nd coronal reformations obtained. DLP: 529 mGy-cm FINDINGS: The ventricles are enlarged. The dilatation of the ventricles is proportional to the degree of sulcal prominence, not uncommon in the senescent brain. Decreased attenuation is identified within the periventricular white matter, likely secondary to micr ovascular ischemic disease, in a patient of this age. There is no mass, mass effect or midline shift. There is no abnormal extra-axial fluid collection or intracranial hemorrhage. Visualized paranasal sinuses are clear. The mastoid air cells are well aerated. No acute displaced fractures within the overlying cranium. Impression: No acute intracranial hemorrhage or suspicious mass effect. Reviewed, dictated and finalized at location A. GNMENT MANAGER Impression: No acute intracranial hemorrhage or suspicious mass effect.
--- NOTE | ~2024-11-10 | CT_ITS ---
EXAMINATION: CT abdomen pelvis w con DATE: 11/10/2024 17:42 INDICATION: Anemia, given recent fall, TECHNIQUE: Computed tomography (CT) of the abdomen and pelvis was performed with 100 mL Omnipaque-350 intravenous contrast. Automated exposure control and iterative reconstruction technique were employe d. The dose-length product was 558.66 mGy-cm. COMPARISON: 08/12/2024. FINDINGS: Lower thorax: Cardiomegaly. Mild coronary artery calcifications. Dependent atelectasis. Liver: Normal. Biliary/Gallbladder: Gallbladder is normal. No bile duct dilation. Pancreas: Pancreatic atrophy. Spleen: Normal. Adrenals:No mass. Kidneys: No suspicious mass, obstructing stone, or hydronephrosis. Simple bilateral renal cysts and l esions that are too small to characterize but most likely represent cysts. Bilateral cortical scarrin g. GI tract: Uncomplicated appearing duodenal diverticulum. No small or large bowel dilation. Appendix n ot confidently visualized. Diverticulosis without diverticulitis. Mesentery/Peritoneum: No ascites, mass, or free air. Retroperitoneum: No mass. Atherosclerotic calcifications of intra-abdominal arterial vessels. Pelvis: Distended urinary bladder with wall thickening and mild inflammatory change. Atrophic uterus and bilateral ovaries. Soft Tissues: Soft tissues and body wall unremarkable. Bones: No acute osseous finding. Stable T12 compression deformity. Severe lumbar degenerative disc d isease with severe central canal narrowing at L2-3 and multilevel bilateral neural foraminal narrowin g secondary to degenerative changes. IMPRESSION: Possible cystitis. Otherwise no acute abdominopelvic process detected. Reviewed, dictated and finalized at location K. CONDITIONING UNIT ASSEMBLER
--- NOTE | ~2024-11-10 | CT_ITS ---
EXAMINATION: CT cervical spine wo con DATE: 11/10/2024 13:33 INDICATION: Neck injury. Fall. TECHNIQUE: Computed tomography (CT) of the cervical spine was performed without intravenous contrast. Automated exposure control and iterative reconstruction technique were employed. The dose-length pro duct was 321.01 mGy-cm. COMPARISON: CT cervical spine 09/14/2024 FINDINGS: There is 7 degrees dextrocurvature of cervicothoracic spine. There is 2 mm anterolisthesis of C4 on C5. Vertebral body heights are normal. There is mildly decreased disc height at C3-C4 and se verely decreased disc height at C5-C6 and C6-C7. The following disc levels are specifically discussed : C2-C3: There is mild bilateral uncovertebral joint osteoarthritis. There is moderate left facet joint osteoarthritis. There is no neural foraminal stenosis. There is no central canal stenosis. C3-C4: There is severe right and mild left uncovertebral joint osteoarthritis. There is severe right and moderate left facet joint osteoarthritis. There is moderate right and mild left neural foraminal stenosis. There is mild central canal stenosis. C4-C5: There is mild bilateral uncovertebral joint osteoarthritis. There is moderate right and severe left facet joint osteoarthritis. There is mild left neural foraminal stenosis. There is no central c anal stenosis. C5-C6: There is severe bilateral uncovertebral joint osteoarthritis. There is mild bilateral facet rachel int osteoarthritis. There is mild bilateral neural foraminal stenosis. There is mild central canal st enosis. C6-C7: There is moderate right and severe left uncovertebral joint osteoarthritis. There is mild left facet joint osteoarthritis. There is mild left neural foraminal stenosis. There is mild central félix l stenosis. C7-T1: There is no uncovertebral joint osteoarthritis. There is severe bilateral facet joint osteoart hritis. There is mild left neural foraminal stenosis. There is no central canal stenosis. IMPRESSION: 1. No fracture 2. Severe cervical spondylosis. Reviewed, dictated and finalized at location A. CH COMMUNICATION PROFESSOR
--- NOTE | 2024-11-10 13:00 | ECG_ITS ---
Test Date: 2024-11-10 13:10:10 Measurements Intervals [place] Rate: 69 P: 4 [place]: 183 QRS: 30 QRSD: 101 T: 55 QT: 422 QTc: 452 Interpretive Statements SINUS RHYTHM LEFT VENTRICULAR HYPERTROPHY WITH ST-T CHANGE BASELINE ARTIFACT- I, II, AVR, AVL, AVF, V1 BORDERLINE ECG Compared to ECG 08/12/2024 12:49:40 NO SIGNIFICANT CHANGE Electronically Signed On 11-10-2024 13:18:14 [employer] by Alfredo Wright D.O.
--- NOTE | 2024-11-10 13:13 | ED.FALL ---
HPI - Fall General Chief Complaint: Fall <Singh Valles PA-C - Last Filed: 11/10/24 13:54> Stated Complaint: fall, L. shoulder pain, no thinners <Singh Valles PA-C - Last Filed: 11/10/24 13:54> Time Seen by Provider: 11/10/24 16:58 <Singh Valles PA-C - Last Filed: 11/10/24 13:54> Focused HPI: This is a 70-year-old female who presents to the ED via EMS for chief complaint of a fall that occurred around 1:00 a.m. last night. Patient states that she is unsure of why she fell. She does feel that she was on her way to the bathroom when this occurred. Denies any recent illness, preceding chest pain or shortness of breath. Endorses pain to the left chest with tenderness to the left chest following the fall. Denies any further site of injury. GENERAL: Well-appearing, well-nourished, and in no acute distress. HEAD: Normocephalic, atraumatic. CHEST: Clear to auscultation. No respiratory distress. Full tenderness to palpation to the left anterior superior ribs. No crepitus or bruising HEART: Regular rate and rhythm. NEURO: Alert and oriented x3. Patient screened in triage and initial orders placed. Additional care and disposition to be based upon diagnostic testing and treatment. <Singh Valles PA-C - Last Filed: 11/10/24 13:54> Source: patient <Singh Valles PA-C - Last Filed: 11/10/24 13:54> Mode of arrival: ambulatory <Singh Valles PA-C - Last Filed: 11/10/24 13:54> Limitations: no limitations <Singh Valles PA-C - Last Filed: 11/10/24 13:54> History of Present Illness HPI Narrative: PCU female who presents emergency department with chief complaint of falls. For the patient's family the patient has been having frequent falls reports that she has been weaker than normal lately and today had a ground level fall I a.m. this morning the patient states that she has got pain on the left side of her chest and reports that is tender to palpation. The patient reports no shortness of breath reports no head injury reports that she had some bruising present to her left arm <Geo Pierce MD - Last Filed: 11/10/24 19:43> Related Data Home Medications: Home Medications ?Medication ?Instructions ?Recorded ?Confirmed ?Last Taken ?Type aspirin 81 mg tablet,delayed 81 mg PO DAILY 10/10/23 08/12/24 07/20/24 08:32 History release lamotrigine 25 mg tablet 75 mg PO BID 10/10/23 08/12/24 07/20/24 08:34 History metoprolol succinate 50 mg 50 mg PO DAILY 10/10/23 08/12/24 07/20/24 08:33 History tablet,extended release 24 hr primidone 50 mg tablet 50 mg PO DAILY 10/10/23 08/12/24 07/20/24 08:34 History pantoprazole 40 mg tablet,delayed 40 mg PO DAILY 06/30/24 08/12/24 07/20/24 08:34 History release secukinumab 150 mg/mL subcutaneous 300 mg subcut [id number] 07/30/24 08/12/24 Unknown History pen injector (Cosentyx Pen) clopidogrel 75 mg tablet 75 mg PO DAILY 08/12/24 08/12/24 Unknown History duloxetine 60 mg capsule,delayed 120 mg PO DAILY 08/12/24 08/12/24 Unknown History release hydroxyzine HCl 25 mg tablet 25 mg PO DAILY 08/12/24 08/12/24 Unknown History thiamine HCl (vitamin B1) 100 mg 100 mg PO DAILY 08/12/24 08/12/24 Unknown History tablet (Vitamin B-1) vit A 300 mcg-C 200 mg-E 27 2 tablet PO DAILY 08/12/24 08/12/24 Unknown History mg-lutein 2 mg and minerals tablet (Ocuvite with Lutein) <Singh Valles PA-C - Last Filed: 11/10/24 13:54> Allergies/Adverse Reactions: Allergies Allergy/AdvReac Type Severity Reaction Status Date / Time cephalexin Allergy Severe Anaphylaxis Verified 11/10/24 12:55 <Singh Valles PA-C - Last Filed: 11/10/24 13:54> Review of Systems Review of Systems: A 10 system review of systems was completed on the patient and is negative except for what is stated in the HPI. Nursing and ancillary documentation was reviewed. <Geo Pierce MD - Last Filed: 11/10/24 19:43> [facility] Past Medical History Medical History: Medical History Hallucinations Chronic pain Osteoporosis Ankylosing spondylitis of multiple sites in spine Seronegative rheumatoid arthritis of multiple sites patient of Dr. Shahriar Cook Type 2 diabetes mellitus Tobacco abuse Macular degeneration Obstructive sleep apnea History of basal cell carcinoma (BCC) Hypertension Sleep apnea in adult does not use CPAP Anemia Shingles Anxiety Depression Fatty liver Bronchitis Emphysema of lung Anal fissure Peripheral neuropathy Seizures (1973) B12 deficiency Gastro-esophageal reflux disease without esophagitis Mixed hyperlipidemia Psoriasis Diverticulitis <Singh Valles PA-C - Last Filed: 11/10/24 13:54> Surgical History Surgical History: Surgical History History of benign breast biopsy History of appendectomy History of cataract extraction with lens replacement History of tubal ligation History of dilatation and curettage History of section History of sinus surgery History of lumbar laminectomy Status post anal fissurectomy History of colonoscopy History of carpal tunnel release <Singh Valles PA-C - Last Filed: 11/10/24 13:54> Family History Family History: Family History Mother Hypertension, Onset Age: 97 Father Family history of malignant neoplasm Family history of lung cancer, Onset Age: 94 Colon cancer Sibling Family history of blood dyscrasia Other Family history of arthritis Family history of seizure disorder No family history of cardiovascular disease No family history of diabetes mellitus No family history of hypertension Prediabetes <Singh Valles PA-C - Last Filed: 11/10/24 13:54> Social History Social History: Social History Social History: Surrogate medical decision maker: Misha Nam, spouse. Code status: Long discussion about options and the patient wishes to be DNR Smoking packs per day: 0.5 Smoking cigarettes per day: 10.0 Years smoked: 64 Smoking pack-years: 32.00 Smoking status: Smoker, status unknown Tobacco type: cigarettes Second hand tobacco smoke exposure: Yes Additional smoking assessment comments: 1-1.5 ppd for 59 years Alcohol intake: never Drinks per week: 14 Alcohol use details: beer-occasionally Substance use: never Do You Feel Safe in your Home?: Yes Lack of Transportation: No Lack of Food: Never True Current Housing: I Have Housing Concerned About Future Housing: No Difficulty Paying Gas/Electric Bills: No Difficulty Paying for Meds: No Currently Unemployed: No Education: Master's Degree or Higher Difficulty w/ Childcare or Family Care: No Living arrangements: with family Additional living arrangements comments: Lives with in [place]. Gender identity (if verbalized by the patient): Female Sexual Orientation (if Verbalized by the Patient): Straight or Heterosexual Spiritual care concerns: No <Singh Valles PA-C - Last Filed: 11/10/24 13:54> Exam Narrative: GENERAL: Well-appearing, well-nourished, and in no acute distress. HEAD: Normocephalic, atraumatic. EYES: PERRLA and EOMI. ENT: Nares clear, no rhinorrhea or epistaxis. Mucous membranes moist. NECK: Supple. CHEST: Clear to auscultation. No respiratory distress. HEART: Regular rate and rhythm. No murmur heard. Normal peripheral pulses. ABDOMEN: Soft, nontender, nondistended, normal active bowel sounds. : Guaiac-negative stool EXTREMITIES: Normal range of motion. No edema. SKIN: Warm, dry, no rash. NEURO: No focal deficits. Alert and oriented x3. PSYCH: Normal mood and affect. <Geo Pierce MD - Last Filed: 11/10/24 19:43> Course Vital Signs Vital signs: Vital Signs Temperature 36.9 C 11/10/24 13:02 Pulse Rate 68 11/10/24 13:02 Respiratory Rate 18 11/10/24 13:02 Blood Pressure 161/73 H 11/10/24 13:02 Pulse Oximetry 96 11/10/24 13:02 Oxygen Delivery Room Air 11/10/24 13:02 Temperature 36.9 C 11/10/24 13:02 Pulse Rate 87 11/10/24 18:04 Respiratory Rate 15 11/10/24 18:04 Blood Pressure 174/65 H 11/10/24 18:04 Pulse Oximetry 93 11/10/24 18:04 Oxygen Delivery Room Air 11/10/24 13:02 <Singh Valles PA-C - Last Filed: 11/10/24 13:54> Vital Signs Temperature 36.9 C 11/10/24 13:02 Pulse Rate 68 11/10/24 13:02 Respiratory Rate 18 11/10/24 13:02 Blood Pressure 161/73 H 11/10/24 13:02 Pulse Oximetry 96 11/10/24 13:02 Oxygen Delivery Room Air 11/10/24 13:02 Temperature 36.9 C 11/10/24 13:02 Pulse Rate 87 11/10/24 18:04 Respiratory Rate 15 11/10/24 18:04 Blood Pressure 174/65 H 11/10/24 18:04 Pulse Oximetry 93 11/10/24 18:04 Oxygen Delivery Room Air 11/10/24 13:02 <Geo Pierce MD - Last Filed: 11/10/24 19:43> MDM - Fall MDM Narrative Medical decision making narrative: Differential diagnosis includes rib fracture, pneumothorax, hemothorax, intra-abdominal trauma, UTI Laboratory studies were obtained on the patient showed hemoglobin of 6.2 the patient has a baseline history Of but is normally in the 80s to 90s. Troponin was negative CT of the head C-spine were negative CT scan of the chest showed no evidence pulmonary contusion no evidence of hemothorax no evidence of rib fractures CT scan of the abdomen pelvis showed no acute abnormality Urinalysis showed no evidence UTI Patient is currently guaiac negative on exam. In discussion with the family the patient has had multiple falls and has been unsteady on her feet <Geo Pierce MD - Last Filed: 11/10/24 19:43> Lab Data Result diagrams: 11/10/24 16:31 11/10/24 16:31 <Singh Valles PA-C - Last Filed: 11/10/24 13:54> Labs: Lab Results 11/10/24 11/10/24 Range/Units 16:31 16:54 WBC 7.4 (4.5-10.0) K/mm3 RBC 2.88 L (4.2-5.4) M/mm3 Hgb 6.2 L* (12.0-15.0) g/dL Hct 21.3 L (37.0-47.0) % MCV 74.0 L (80-100) fl MCH 21.5 L (26-34) pg MCHC 29.1 L (32-36) g/dl RDW 17.5 H (11.5-14.5) % Plt Count 307 (150-375) k/mm3 MPV 9.4 (7.4-10.4) fl Immature Gran % (Auto) 0.4 (0-0.5) % Neut % (Auto) 62.7 (45.5-73.1) % Lymph % (Auto) 26.7 (18.3-44.2) % [place] % (Auto) 8.0 (2.6-8.5) % Eos % (Auto) 1.9 (0-4.4) % Baso % (Auto) 0.3 (0.2-1.2) % Lymph # (Auto) 1.97 (0.9-3.2) K/mm3 [place] # (Auto) 0.6 (0.1-0.6) K/mm3 Eos # (Auto) 0.1 (0-0.3) K/mm3 Baso # (Auto) 0.0 (0.0-0.1) K/mm3 Abs Immat Gran (auto) 0.03 (0.00-0.031) K/mm3 Absolute Neuts (auto) 4.6 (1.3-6.7) K/mm3 Absolute Nucleated RBC 0.000 (0.0-0.012) K/mm3 Band Neutrophils % Not Reportable Nucleated RBC % 0.0 (0.0-0.2) % Platelet Estimate Adequate (Adequate) Hypochromasia 1+ Target Cells 1+ Ovalocytes 1+ Schistocytes None seen Sodium 138 (137-145) mmol/L Potassium 3.3 L (3.4-5.0) mmol/L Chloride 103 (98-107) mmol/L Carbon Dioxide 28 (22-30) mmol/L Anion Gap 7 (4-12) mmol/L BUN 7 (7-17) mg/dL Creatinine 0.48 L (0.7-1.0) mg/dL Estim Creat Clear Calc 71 ml/min Estimated GFR > 60 (59 - ) Glucose 121 H (65-110) mg/dL Calcium 8.8 (8.4-10.2) mg/dL Total Bilirubin 0.3 (0.2-1.3) mg/dL AST 15 (14-36) U/L ALT 11 (6-35) U/L Alkaline Phosphatase 129 H (38-126) U/L Troponin I < 0.012 (0.000-0.034) ng/mL NT-Pro-B Natriuret Pep 1160 H (19.9-100) pg/mL Total Protein 7.0 (6.3-8.2) g/dL Albumin 3.6 (3.5-5.1) g/dL Urine Color Yellow (Yellow) Urine Appearance Clear (Clear) Urine pH 6.5 (5.0-9.0) Ur Specific [place] 1.013 (1.001-1.035) Urine Protein Negative (Negative) mg/dL Urine Glucose (UA) Negative (Negative) mg/dL Urine Ketones Negative (Negative) mg/dL Ur Blood (Man) Negative (Negative) Urine Nitrate Negative (Negative) Urine Bilirubin Negative (Negative) Urine Urobilinogen 0.2 (<2.0) mg/dL Leukocyte Esterase Rfl Negative (Negative) COY/UL <Snigh Valles PA-C - Last Filed: 11/10/24 13:54> Lab Results 11/10/24 11/10/24 Range/Units 16:31 16:54 WBC 7.4 (4.5-10.0) K/mm3 RBC 2.88 L (4.2-5.4) M/mm3 Hgb 6.2 L* (12.0-15.0) g/dL Hct 21.3 L (37.0-47.0) % MCV 74.0 L (80-100) fl MCH 21.5 L (26-34) pg MCHC 29.1 L (32-36) g/dl RDW 17.5 H (11.5-14.5) % Plt Count 307 (150-375) k/mm3 MPV 9.4 (7.4-10.4) fl Immature Gran % (Auto) 0.4 (0-0.5) % Neut % (Auto) 62.7 (45.5-73.1) % Lymph % (Auto) 26.7 (18.3-44.2) % [place] % (Auto) 8.0 (2.6-8.5) % Eos % (Auto) 1.9 (0-4.4) % Baso % (Auto) 0.3 (0.2-1.2) % Lymph # (Auto) 1.97 (0.9-3.2) K/mm3 [place] # (Auto) 0.6 (0.1-0.6) K/mm3 Eos # (Auto) 0.1 (0-0.3) K/mm3 Baso # (Auto) 0.0 (0.0-0.1) K/mm3 Abs Immat Gran (auto) 0.03 (0.00-0.031) K/mm3 Absolute Neuts (auto) 4.6 (1.3-6.7) K/mm3 Absolute Nucleated RBC 0.000 (0.0-0.012) K/mm3 Band Neutrophils % Not Reportable Nucleated RBC % 0.0 (0.0-0.2) % Platelet Estimate Adequate (Adequate) Hypochromasia 1+ Target Cells 1+ Ovalocytes 1+ Schistocytes None seen Sodium 138 (137-145) mmol/L Potassium 3.3 L (3.4-5.0) mmol/L Chloride 103 (98-107) mmol/L Carbon Dioxide 28 (22-30) mmol/L Anion Gap 7 (4-12) mmol/L BUN 7 (7-17) mg/dL Creatinine 0.48 L (0.7-1.0) mg/dL Estim Creat Clear Calc 71 ml/min Estimated GFR > 60 (59 - ) Glucose 121 H (65-110) mg/dL Calcium 8.8 (8.4-10.2) mg/dL Total Bilirubin 0.3 (0.2-1.3) mg/dL AST 15 (14-36) U/L ALT 11 (6-35) U/L Alkaline Phosphatase 129 H (38-126) U/L Troponin I < 0.012 (0.000-0.034) ng/mL NT-Pro-B Natriuret Pep 1160 H (19.9-100) pg/mL Total Protein 7.0 (6.3-8.2) g/dL Albumin 3.6 (3.5-5.1) g/dL Urine Color Yellow (Yellow) Urine Appearance Clear (Clear) Urine pH 6.5 (5.0-9.0) Ur Specific [place] 1.013 (1.001-1.035) Urine Protein Negative (Negative) mg/dL Urine Glucose (UA) Negative (Negative) mg/dL Urine Ketones Negative (Negative) mg/dL Ur Blood (Man) Negative (Negative) Urine Nitrate Negative (Negative) Urine Bilirubin Negative (Negative) Urine Urobilinogen 0.2 (<2.0) mg/dL Leukocyte Esterase Rfl Negative (Negative) COY/UL <Geo Pierce MD - Last Filed: 11/10/24 19:43> Discharge Plan Discharge Clinical Impression: Anemia, Frequent falls, Acute chest wall pain <Singh Valles PA-C - Last Filed: 11/10/24 13:54> Patient Disposition: Still a Patient <Singh Valles PA-C - Last Filed: 11/10/24 13:54> Condition: Stable <Singh Valles PA-C - Last Filed: 11/10/24 13:54> Patient Language: Panamanian <DEVEN Beasley Last Filed: 11/10/24 13:54> Prescriptions: No Action Cosentyx Pen 150 mg/mL Pen Injector 300 mg SUBCUT [id number] Patient Comments: DOSE DUE 07/30 Rx Instructions: Saturday tramadol 50 mg tablet 50 mg PO Q6H PRN (Reason: pain) Qty: 20 0RF pantoprazole 40 mg tablet,delayed release (DR/EC) 40 mg PO DAILY Atorvastatin [Lipitor] 40 mg PO DAILY Qty: 30 0RF isosorbide mononitrate 30 mg tablet extended release 24 hr 15 mg PO DAILY Qty: 30 0RF primidone 50 mg tablet 50 mg PO DAILY aspirin 81 mg Tablet,Delayed Release (Dr/Ec) 81 mg PO DAILY lamotrigine 25 mg tablet 75 mg PO BID metoprolol succinate 50 mg tablet extended release 24 hr 50 mg PO DAILY thiamine HCl (vitamin B1) [Vitamin B-1] 100 mg tablet 100 mg PO DAILY clopidogrel 75 mg tablet 75 mg PO DAILY hydroxyzine HCl 25 mg tablet 25 mg PO DAILY duloxetine 60 mg capsule,delayed release(DR/EC) 120 mg PO DAILY Ocuvite with Lutein 300 mcg-200 mg-27 mg-2 mg tablet 2 tablet PO DAILY potassium chloride 20 mEq Packet 40 meq PO DAILY Qty: 7 0RF Jardiance 10 mg tablet 10 mg PO DAILY Qty: 90 0RF amlodipine [Norvasc] 5 mg tablet 10 mg PO HS Qty: 180 3RF hydrocortisone [Anusol-HC] 2.5 % cream with perineal applicator 1 applic RECTAL DAILY PRN (Reason: hemorrhoids) Qty: 30 0RF Rx Instructions: Daily, every other day losartan 100 mg tablet 100 mg PO DAILY Qty: 90 3RF trazodone 50 mg tablet 100 mg PO HS Qty: 180 1RF lorazepam 0.5 mg tablet 0.5 mg PO TID PRN (Reason: anxiety) Qty: 90 0RF hydrocodone-acetaminophen 5-325 mg tablet 1 tablet PO QHS PRN (Reason: pain) Qty: 14 0RF hydralazine 25 mg tablet See Rx Instructions .ROUTE .COMPLEX Qty: 270 1RF Dose Instruction: TAKE 1 TABLET BY MOUTH THREE TIMES A DAY Rx Instructions: TAKE 1 TABLET BY MOUTH THREE TIMES A DAY docusate sodium 100 mg Capsule 100 mg PO BID Qty: 60 0RF folic acid 1 mg Tablet 1 mg PO DAILY Qty: 30 0RF acetaminophen 500 mg Tablet 500 mg PO BID PRN (Reason: pain) Qty: 30 0RF gabapentin 300 mg capsule 600 mg PO BID Qty: 270 1RF <Singh Valles PA-C - Last Filed: 11/10/24 13:54> Follow-up/Referrals: Enid Montalvo, [facility] [Primary Care Provider] - <Singh Valles PA-C - Last Filed: 11/10/24 13:54> Time of Disposition: 18:25 <Singh Valles PA-C - Last Filed: 11/10/24 13:54> 18:25 <Geo Pierce MD - Last Filed: 11/10/24 19:43>
--- OUTSIDE RECORDS SUMMARY | 2024-11-10 14:36 | XMS_ITS | Encounter Summary ---
Author Organization [facility] Address [address] [place] [address] Care Team Providers Care Lining Feller Name Role Phone Unavailable Primary Care Provider Unavailabl e Encounter Details Date Type Department Care Team (Late st Contact Info) Description 10/31/2001 Outpatient Historical Division of Neurology [address] [address] (Excluded Provider) [place] [address] [facility] [address] [place] [address] Social History Tobacco Use Types Packs/Day Years Used Date Smoking Tobacco: Never Assessed Comments Unknown Sex and Gender Information Value Date Recorded Sex Assigned at Not on file 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
--- OUTSIDE RECORDS SUMMARY | 2024-11-10 14:36 | XMS_ITS | Encounter Summary ---
Author Organization [facility] Address [address] [place] [address] Care Team Providers Care Manager Sharepoint Name Role Phone Akin Coyne MD Primary Care Provider [phone] Adan Umana MD Unavailable [phone] Encounter Details Date Type Department Care Team (Late st Contact Info) Description 01/16/2020 Lab Requisition [facility]CRO[facility]OLOG[facility] [address] [place] [address] Dg Soares MD Social History Tobacco Use [...] Not detected, Invalid 01/17/2020 1:49 PM CDT [facility] Microbiology SPECIMEN FROM NASOPHARYNGEAL STRUCTURE / Unknown Collection / Unknown 01/16/2020 11:20 AM CDT 01/16/2020 8:06 PM CDT Narrative [facility] - 01/17/2020 1:49 PM CDT This Real Time RT-PCR assay was developed and its performance characteristics determined by [facility]. This test has been [...] Dg Soares MD LAB - MICROBIOLOGY ORDERABLES [facility]CROBI[facility] [address] [place], [place] [address] [phone] documented in this encounter Visit Diagnoses Not on filedocumented in this encounter Care Teams Manager Sharepoint Relationship Specialty Start Date End Date Akin Coyne MD [address] [place] [id number] PCP - General Family Medicine 07/19/15 [place] [id number] [address] Physical Medicine and Rehabilitation 01/23/18 documented as of this encounter
--- OUTSIDE RECORDS SUMMARY | 2024-11-10 14:36 | XMS_ITS | Encounter Summary ---
Author Organization [facility] Address [address] [place] [address] Care Team Providers Care Contracting Analyst Name Role Phone Unavailable Primary Care Provider Unavailabl e Encounter Details Date Type Department Care Team (Late st Contact Info) Description 10/20/2001 Outpatient Historical HIS AUDIOLOGY Fadia Peralta MD [address] [facility] [address] [place] [address] MYOPATHY NOS (Primary Dx) Social History Tobacco Use Types Packs/Day Years Used Date Smoking Tobacco: Never Assessed Comments Unknown Sex and Gender Information Value Date Recorded Sex Assigned at Not on file Legal Sex Female 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
--- OUTSIDE RECORDS SUMMARY | 2024-11-10 14:36 | XMS_ITS | Encounter Summary ---
Author Organization [facility] Address [address] [place] [address] Care Team Providers Care Mapping Engineer Name Role Phone Unavailable Primary Care Provider Unavailabl e Encounter Details Date Type Department Care Team (Late st Contact Info) Description 10/03/2001 Outpatient Historical Division of Neurology [address] [address] (Excluded Provider) [place] [address] 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
--- OUTSIDE RECORDS SUMMARY | 2024-11-10 14:36 | XMS_ITS | Encounter Summary ---
Author Organization [employer] Address [address] [place] [address] Care Team Providers Care Cashier Ticket Selling Name Role Phone Unavailable Primary Care Provider Unavailabl e Encounter Details Date Type Department Care Team (Latest Contact Info) Description 10/19/1998 Outpatient Historical HIS OBSERVATION BED Michael Harris MD [address] [place] [address] [place] [address] BackerKarlos MD NO ADDRESS ON FILE Lumbago (Primary Dx) Social History Tobacco Use Types Packs/Day Years Used Date Smoking Tobacco: Never Assessed Comments Unknown Sex and Gender Information Value Date Recorded Sex Assigned at Not on file Legal Sex Female 4:14 AM PRACTICE MANAGEMENT CONSULTANT Gender Identity Not on file Sexual Orientation Not on file documented as of this encounter Plan of Treatment Not on file documented as of this encounter Visit Diagnoses Diagnosis Lumbago- Primary documented in this encounter
--- OUTSIDE RECORDS SUMMARY | 2024-11-10 14:36 | XMS_ITS | Clinical Summary ---
Author Organization [facility] Address [address] [facility] Attn: Epic Prelude ADT [place]AVE[place] [address] Care Team Providers Care Woodwork Salvage Inspector Name Role Phone Unavailable Primary Care Provider Unavailabl e Social History Tobacco Use Types Packs/Day Years Used Date Smoking Tobacco: Never Assessed Comments Unknown Sex and Gender Information Value Date Recorded Sex Assigned at Not on file Legal Sex Female 4:14 AM MEDICAL FIELD REPRESENTATIVE Gender Identity Not on file Sexual Orientation Not on file Plan of Treatment Health Maintenance Due Date Last Done Comments DTAP/TDAP/TD VACCINES (1 - Tdap) 1964 PNEUMOCOCCAL VACCINE 65+ YEARS (1 of 1 - PCV) 11/15/18 96 ZOSTER VACCINE (1 of 2) 11/16/1995 OSTEOPOROSIS SCREENING 2010 RSV VACCINE (60+ or ) (1 - 1-dose 75+ series) 2020 INFLUENZA VACCINE (#1) 2024
--- OUTSIDE RECORDS SUMMARY | 2024-11-10 14:36 | XMS_ITS | Encounter Summary ---
Author Organization [employer] Address [address] [place] [address] Care Team Providers Care Masonry Supervisor Name Role Phone Unavailable Primary Care Provider Unavailabl e Encounter Details Date Type Department Care Team (Late st Contact Info) Description 11/03/2001 Outpatient Historical HIS MRI DEPT (Excluded Provider) [place] [address] [facility] [address] [place] [address] LUMB/LUMBOSAC DISC DEGEN (Primary Dx) Social History Tobacco Use Types Packs/Day Years Used Date Smoking Tobacco: Never Assessed Comments Unknown Sex and Gender Information Value Date Recorded Sex Assigned at Not on file Legal Sex Female 4:14 AM NURSE CONSULTANT Gender Identity Not on file Sexual Orientation Not on file documented as of this encounter Plan of Treatment Not on file documented as of this encounter Visit Diagnoses Diagnosis Degeneration of lumbar or lumbosacral intervertebral disc- Primary documented in this encounter
--- OUTSIDE RECORDS SUMMARY | 2024-11-10 14:37 | XMS_ITS | Referral Summary ---
Author Organization [facility] Address [address] [place] [address] Care Team Providers Care Mixer Foam Rubber Name Role Phone Akin Coyne MD Primary Care Provider Adan Umana MD Unavailable [phone] Source Comments [facility],non-owned Affiliates and Associated Physician Practices is amultiple site organization consisting of ambulatory clinics and hospital sitesin [place], [place], [place] and [place]. This disclosure is being madepursuant to the Care Everywhere program and may not contain all information available regarding this patient. Last updated 18.[facility] Allergies Active Allergy Reactions Criticality Noted Date [...] every 12 hours 08/12/2023 Active HYDROcodone-acetam inophen ([place]) 5-325 MG tablet Take 1 (one) tablet [...] 68 07/10/2023 2:40 PM CDT Temperature 36.8 C (98.3 F) 07/10/2023 2:40 PM CDT Respiratory Rate 20 07/10/2023 2:40 PM CDT Oxygen Saturation 96% 07/10/2023 2:40 PM CDT Inhaled Oxygen Concentration - - Weight 86.2 kg (190 lb) 11/26/2023 12:58 PM CDT Height 157.5 cm (5' 2 ) 11/26/2023 12:58 PM CDT Body Mass Index 34.75 11/26/2023 12:58 PM CDT Plan of Treatment Not on file Care Teams Mixer Foam Rubber Relationship Specialty Start Date End Date Akin Coyne MD [address] [place] [id number] PCP - General Family Medicine 07/19/15 [place] [address] [place] [address] [place] [id number] Physical Medicine and Rehabilitation 01/23/18
--- OUTSIDE RECORDS SUMMARY | 2024-11-10 14:37 | XMS_ITS | Clinical Summary ---
Author Organization Unknown Care Team Providers Care Welder Tech Name Role Phone IGGY BOOKER, ASHLEY Unavailable Unavailabl e JOSHUA PT, BETSY Unavailable Unavailable MARCELO OT, ABNER Unavailable Unavailable CHELA DESIGN PRINTING MACHINE SETTER, DENVER Unavailable Unavailabl e LUPCHO KANU/TAMAYO, OSBALDO Unavailable Unavaila mariana RIGGS, KYLE Unavailable Unavailable Payers Payer Name Policy Type Policy Number Effective Date Expira tion Date MEDICARE.[facility] [id number] Problems Condition Name Condition Details Condition Category Status Onset Date Resolution Date Last Treatment Date Treating Clinician Comments OTHER SEIZURES Active 09-18 00:00: 00 URINARY TRACT INFECTION, SITE NOT SPECIFIED Active 2023-09 2 00:00: 00 TYPE 2 DIABETES MELLITUS WITHOUT COMPLICATION S Active - 00:00: 00 ESSENTIAL (PRIMARY) HYPERTENSION Active 09-16 00:00: 00 CHRONIC OBSTRUCTIVE PULMONARY DISEASE, UNSPECIFIED Active - 00:00: 00 OTHER IDIOPATHIC PERIPHERAL [...] APNEA (ADULT) (PEDIATRIC) Active - 00:00: 00 UNSPECIFIED MACULAR DEGENERATION Active - 00:00: 00 ANXIETY DISORDER, UNSPECIFIED Active 09-16 00:00: 00 FATTY (CHANGE OF) LIVER, NOT ELSEWHERE CLASSIFIED Active 09-16 00:00: 00 CONSTIPATION , UNSPECIFIED Active 09-16 00:00: 00 GASTRO-ESOPH AGEAL REFLUX DISEASE WITHOUT ESOPHAGITIS Active 09-16 00:00: 00 MIXED HYPERLIPIDEM IA Active 09-16 00:00: 00 NICOTINE DEPENDENCE, CIGARETTES, UNCOMPLICATE D Active 09-16 00:00: 00 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 ICS/ANTIPLAT ELETS Active 09-16 00:00: 00 PRSNL HX OF TIA (TIA), 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 09-16 00:00: 00 HISTORY OF FALLING Active 09-16 00:00: 00 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 (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) USE OF ORAL HYPOGLYCEMIC DRUGS Active 09-16 00:00: 00 Allergies, Adverse Reactions, [...] 0-11 00:00: 00 09-14 23:59 :00 No [id number] NEEDED FOR ANXIETY 1 tablet DAILY 1 tablet DAILY (route: oral) Med Classific ation: Central Nervous System Agents pantoprazol e 40 mg tablet,michael yed release 8-02 00:00: 00 09-14 23:59 :00 No [id number] STOMACH 1 tablet DAILY 1 tablet DAILY (route: oral) Med Classific ation: Gastroint estinal Therapy Agents azathioprin e 50 mg tablet 2020-09 0-07 00:00: 00 09-14 23:59 :00 No [id number] ORGAN REJECTION, PAIN 2 tablet DAILY 2 tablet DAILY (route: oral) Med Classific ation: Immunosup pressive Agents amlodipine 5 mg tablet 9-21 00:00: 00 09-14 23:59 :00 No [id number] HTN 1 tablet DAILY 1 tablet DAILY (route: oral) Med Classific ation: Cardiovas cular Therapy Agents trazodone 50 mg tablet 1-14 00:00: 00 09-14 23:59 :00 No [id number] DEPRESSION 2 tablet BEDTIME 2 tablet BEDTIME (route: oral) Med Classific ation: Central Nervous System Agents metoprolol succinate ER 100 mg tablet,exte nded release 24 hr 8-11 00:00: 00 09-14 23:59 :00 No [id number] HTN 1 tablet DAILY 1 tablet DAILY (route: oral) Med Classific ation: Cardiovas cular Therapy Agents gabapentin 300 mg capsule 9-04 00:00: 00 09-14 23:59 :00 No [id number] PAIN 1 capsule 3 TIMES DAILY 1 capsule 3 TIMES DAILY (route: oral) Med Classific ation: Central Nervous System Agents tizanidine 2 mg tablet 9-15 00:00: 00 09-14 23:59 :00 No [id number] MUSCLE SPASM 1 tablet BEDTIME 1 tablet BEDTIME (route: oral) Med Classific ation: Locomotor System gabapentin 300 mg capsule 2020-09 0-06 00:00: 00 07-18 00:00 :00 No [id number] Per instruc tions Per instructio ns (route: oral) Med Classific ation: Central Nervous System Agents lamotrigine 100 mg tablet 9-04 00:00: 00 09-14 23:59 :00 No [id number] SEIZURE 1 tablet 2 TIMES DAILY 1 tablet 2 TIMES DAILY (route: oral) Med Classific ation: Central Nervous System Agents duloxetine 60 mg capsule,del ayed release 9-04 00:00: 00 09-14 23:59 :00 No [id number] MOOD, DEPRESSION 2 capsule DAILY 2 capsule DAILY (route: oral) Med Classific ation: Central Nervous System Agents methylpredn isolone 4 mg tablets in a dose pack 2020-09 0-31 00:00: 00 07-18 00:00 :00 No [id number] Per instruc tions Per instructio ns (route: oral) Med Classific ation: Endocrine BD Tuberculin Syringe 1 mL 25 gauge x 5/8 9-09 00:00: 00 07-18 00:00 :00 No [id number] Per instruc tions Per instructio ns (route: miscellane ous) Med Classific ation: Medical Supplies and Durable Medical Equipment (DME) albuterol sulfate 1.25 mg/3 mL solution for nebulizatio n 2020-09 00:00: 00 09-29 23:59 :00 No [id number] NEEDED FOR SOB 3 mL DAILY 3 mL DAILY (route: inhalation ) Med Classific ation: Respirato ry Therapy Agents Aspirin Low Dose 81 mg tablet,michael yed release 2020-09 00:00: 00 09-14 23:59 :00 No [id number] BLOOD THINNER 1 tablet DAILY 1 tablet DAILY (route: oral) Med Classific ation: Hematolog ical Agents biotin 5,000 mcg disintegrat ing tablet 2020-09 00:00: 00 09-14 23:59 :00 No [id number] SUPPLEMENT 1 tablet DAILY 1 tablet DAILY (route: oral) Med Classific ation: Electroly te Balance-N utritiona l Products Centrum Silver 0.4 mg-300 mcg-250 mcg tablet 2020-09 00:00: 00 09-14 23:59 :00 No [id number] SUPPLEMENT 1 tablet DAILY 1 tablet DAILY (route: oral) Med Classific ation: Electroly te Balance-N utritiona l Products Cosentyx 150 mg/mL subcutaneou s syringe 2020-09 00:00: 00 09-14 23:59 :00 No [id number] ARTHRITIS 150 mg DIRECTED 150 mg DIRECTED (route: subcutaneo us) Med Classific ation: Dermatolo gical metformin 500 mg tablet 2020-09 00:00: 00 09-14 23:59 :00 No [id number] DIABETES MELLITUS 1 tablet DAILY 1 tablet DAILY (route: oral) Med Classific ation: Endocrine methylpredn isolone 4 mg tablets in a dose pack 2020-09 00:00: 07-22 23:59 :00 No [id number] ARTHRITIS Per instruc tions DIRECTED Per instructio ns DIRECTED (route: oral) Med Classific ation: Endocrine PreserVisio n AREDS-2 250 mg-90 mg-40 mg-1 mg capsule 2020-09 00:00: 00 09-14 23:59 :00 No [id number] SUPPLEMENT 1 capsule DAILY 1 capsule DAILY (route: oral) Med Classific ation: Alternati ve Therapy Tylenol Extra Strength 500 mg tablet 2020-09 00:00: 00 09-14 23:59 :00 No [id number] PAIN 2 tablet 3 TIMES DAILY 2 tablet 3 TIMES DAILY (route: oral) Med Classific ation: Analgesic , Anti-infl ammatory or Antipyret ic Vitamin D3 50 mcg (2,000 unit) capsule 2020-09 00:00: 00 09-14 23:59 :00 No [id number] SUPPLEMENT 1 capsule DAILY 1 capsule DAILY (route: oral) Med Classific ation: Electroly te Balance-N utritiona l Products Methylpred DP 4 mg tablets in a dose pack 2020-09 00:00: 00 09-29 23:59 :00 No [id number] TO REDUCE SYMPTOMS SUCH PAIN AND SWELLING 4 mg BEFORE MEALS 4 mg BEFORE MEALS (route: oral) Med Classific ation: Endocrine docusate sodium 100 mg capsule 09-22 00:00: 00 09-14 23:59 :00 No [id number] CONSTIPATIO N 1 capsule 2 TIMES DAILY 1 capsule 2 TIMES DAILY (route: oral) Med Classific ation: Gastroint estinal Therapy Agents Flonase Allergy Relief 50 mcg/actuati on nasal spray,suspe nsion 09-22 00:00: 00 09-14 23:59 :00 No [id number] NASAL CONGESTION, ALLERGIES 2 spray 2 TIMES DAILY 2 spray 2 TIMES DAILY (route: nasal) Med Classific ation: Respirato ry Therapy Agents prednisone 10 mg tablet 09-22 00:00: 00 10-04 23:59 :00 No [id number] STEROID 2 tablet DAILY 2 tablet DAILY (route: oral) Med Classific ation: Endocrine Vitamin C 500 mg tablet 09-22 00:00: 00 09-14 23:59 :00 No [id number] VITAMIN C 1 tablet DAILY 1 tablet DAILY (route: oral) Med Classific ation: Electroly te Balance-N utritiona l Products albuterol sulfate HFA 90 mcg/actuati on aerosol inhaler 09-22 00:00: 00 09-14 23:59 :00 No [id number] SHORTNESS OF BREATH. 2 puff EVERY 4 HOURS 2 puff EVERY 4 HOURS (route: inhalation ) Med Classific ation: Respirato ry Therapy Agents amlodipine 5 mg tablet 09-18 00:00: 00 Yes [id number] BLOOD PRESSURE 1 tablet DAILY 1 tablet DAILY (route: oral) Med Classific ation: Cardiovas cular Therapy Agents atorvastati n 40 mg tablet 09-18 00:00: 00 Yes [id number] CHOLESTEROL 1 tablet DAILY 1 tablet DAILY (route: oral) Med Classific ation: Cardiovas cular Therapy Agents clopidogrel 75 mg tablet 09-18 00:00: 00 Yes [id number] BLOOD THINNER 1 tablet DAILY 1 tablet DAILY (route: oral) Med Classific ation: Hematolog ical Agents Cosentyx 300 mg/2 Syringes (150 mg/mL) subcutaneou s 09-18 00:00: 00 Yes [id number] RHEUMATOID ARTHRITIS 2 mL EVERY OTHER WEEK 2 mL EVERY OTHER WEEK (route: subcutaneo ) Med Classific ation: Dermatolo gical Cymbalta 60 mg capsule,del ayed release 09-18 00:00: 00 Yes [id number] ANXIETY 2 capsule DAILY 2 capsule DAILY (route: oral) Med Classific ation: Central Nervous System Agents folic acid 1 mg tablet 09-18 00:00: 00 Yes [id number] SUPPLEMENT 1 tablet DAILY 1 tablet DAILY (route: oral) Med Classific ation: Electroly te Balance-N utritiona l Products gabapentin 300 mg capsule 09-18 00:00: 00 Yes [id number] SEIZURE 2 capsule 2 TIMES DAILY 2 capsule 2 TIMES DAILY (route: oral) Med Classific ation: Central Nervous System Agents hydralazine 10 mg tablet 09-18 00:00: 00 Yes [id number] BLOOD PRESSURE 1 tablet 2 TIMES DAILY 1 tablet 2 TIMES DAILY (route: oral) Med Classific ation: Cardiovas cular Therapy Agents hydrocodone 5 mg-acetamin ophen 325 mg tablet 09-18 00:00: 00 Yes [id number] NEEDED FOR PAIN 1 tablet EVERY 6 HOURS 1 tablet EVERY 6 HOURS (route: oral) Med Classific ation: Analgesic , Anti-infl ammatory or Antipyret ic hydroxyzine HCl 25 mg tablet 09-18 00:00: 00 Yes [id number] ALLERGIES 1 tablet DAILY 1 tablet DAILY (route: oral) Med Classific ation: Central Nervous System Agents I-James 300 mcg-200 mg-27 mg-2 mg tablet 09-18 00:00: 00 Yes [id number] SUPPLEMENT 2 tablet DAILY 2 tablet DAILY (route: oral) Med Classific ation: Electroly te Balance-N utritiona l Products isosorbide mononitrate ER 30 mg tablet,exte nded release 24 hr 09-18 00:00: 00 Yes [id number] BLOOD PRESSURE 0.5 tablet DAILY 0.5 tablet DAILY (route: oral) Med Classific ation: Cardiovas cular Therapy Agents Jardiance 10 mg tablet 09-18 00:00: 00 Yes [id number] DIABETES 1 tablet DAILY 1 tablet DAILY (route: oral) Med Classific ation: Endocrine lamotrigine 25 mg tablet 09-18 00:00: 00 Yes [id number] SEIZURE 3 tablet 2 TIMES DAILY 3 tablet 2 TIMES DAILY (route: oral) Med Classific ation: Central Nervous System Agents losartan 100 mg tablet 09-18 00:00: 00 Yes [id number] BLOOD PRESSURE 1 tablet DAILY 1 tablet DAILY (route: oral) Med Classific ation: Cardiovas cular Therapy Agents metoprolol succinate ER 50 mg tablet,exte nded release 24 hr 09-18 00:00: 00 Yes [id number] BLOOD PRESSURE 1 tablet DAILY 1 tablet DAILY (route: oral) Med Classific ation: Cardiovas cular Therapy Agents primidone 50 mg tablet 09-18 00:00: 00 Yes [id number] SEIZURE 1 tablet DAILY 1 tablet DAILY (route: oral) Med Classific ation: Central Nervous System Agents trazodone 100 mg tablet 09-18 00:00: 00 Yes [id number] MOOD 1 tablet BEDTIME 1 tablet BEDTIME (route: oral) Med Classific ation: Central Nervous System Agents Vital Signs Vital Name Observation Time Observation Value Commen ts Temperature 2024-11-09 10:21:05.000 97.8 [degF] Temperature 2024-11-03 12:50:00.000 97.6 [degF] Temperature 2024-11-03 12:08:00.000 96.7 [degF] Temperature 2024-11-02 11:58:51.000 98 [degF] Temperature 2024-10-30 15:16:00.000 97.4 [degF] Temperature 2024-10-30 13:42:00.000 98 [degF] Temperature 2024-10-30 10:20:05.000 97.4 [degF] Temperature 2024-10-15 11:14:00.000 98.1 [degF] Temperature 2024-10-13 12:29:00.000 97.3 [degF] Temperature 2024-10-08 11:56:00.000 98.4 [degF] Temperature 2024-10-06 13:14:00.000 98.3 [degF] Temperature 2024-10-01 11:14:00.000 98.5 [degF] Temperature 2024-10-01 10:27:00.000 98.5 [degF] Temperature 2024-09-22 12:37:00.000 97.7 [degF] Temperature 2024-09-18 09:29:00.000 97.8 [degF] BMI (%) 2024-09-18 09:22:45.000 28 kg/m2 Height 2024-09-18 09:22:29.000 61 [in_us] Pulse 2024-11-09 10:21:51.000 66 /min Pulse 2024-11-03 12:50:00.000 64 /min Pulse 2024-11-03 12:08:00.000 64 /min Pulse 2024-11-02 12:01:05.000 66 /min Pulse 2024-10-30 15:16:00.000 68 /min Pulse 2024-10-30 13:42:00.000 68 /min Pulse 2024-10-30 10:20:12.000 68 /min Pulse 2024-10-15 11:14:00.000 71 /min Pulse 2024-10-13 12:29:00.000 70 /min Pulse 2024-10-08 11:57:00.000 67 /min Pulse 2024-10-06 13:14:00.000 61 /min Pulse 2024-10-01 11:14:00.000 85 /min Pulse 2024-10-01 10:27:00.000 85 /min Pulse 2024-09-22 12:37:00.000 67 /min Pulse 2024-09-18 09:29:00.000 60 /min O2 Saturation (%) 2024-11-03 12:50:00.000 94 % O2 Saturation (%) 2024-11-03 12:08:00.000 94 % O2 Saturation (%) 2024-10-30 15:16:00.000 96 % O2 Saturation (%) 2024-10-30 13:43:00.000 96 % O2 Saturation (%) 2024-10-15 11:14:00.000 95 % O2 Saturation (%) 2024-10-13 12:29:00.000 93 % O2 Saturation (%) 2024-10-08 11:56:00.000 95 % O2 Saturation (%) 2024-10-06 13:15:00.000 95 % O2 Saturation (%) 2024-10-01 11:14:00.000 97 % O2 Saturation (%) 2024-10-01 10:27:00.000 97 % O2 Saturation (%) 2024-09-22 12:38:00.000 97 % O2 Saturation (%) 2024-09-18 09:29:00.000 98 % Respirations 2024-11-09 10:58:27.000 16 /min Respirations 2024-11-03 12:50:00.000 18 /min Respirations 2024-11-03 12:08:00.000 18 /min Respirations 2024-11-02 12:06:46.000 18 /min Respirations 2024-10-30 15:16:00.000 18 /min Respirations 2024-10-30 13:42:00.000 18 /min Respirations 2024-10-30 10:23:22.000 18 /min Respirations 2024-10-15 11:14:00.000 18 /min Respirations 2024-10-13 12:29:00.000 19 /min Respirations 2024-10-08 11:57:00.000 18 /min Respirations 2024-10-06 13:14:00.000 18 /min Respirations 2024-10-01 11:14:00.000 18 /min Respirations 2024-10-01 10:27:00.000 18 /min Respirations 2024-09-22 12:37:00.000 18 /min Respirations 2024-09-18 09:29:00.000 19 /min Weight (lbs) 2024-09-18 09:22:45.000 150 [lb_av] Systolic Blood Pressure 2024-11-09 10:21:22.000 146 mm [Hg] Systolic Blood Pressure 2024-11-03 12:50:00.000 142 mm [Hg] Systolic Blood Pressure 2024-11-03 12:08:00.000 142 mm [Hg] Systolic Blood Pressure 2024-11-02 12:00:06.000 150 mm [Hg] Systolic Blood Pressure 2024-10-30 15:16:00.000 138 mm [Hg] Systolic Blood Pressure 2024-10-30 13:42:00.000 132 mm [Hg] Systolic Blood Pressure 2024-10-30 10:17:45.000 138 mm [Hg] Systolic Blood Pressure 2024-10-15 11:14:00.000 140 mm [Hg] Systolic Blood Pressure 2024-10-13 12:29:00.000 118 mm [Hg] Systolic Blood Pressure 2024-10-08 11:56:00.000 140 mm [Hg] Systolic Blood Pressure 2024-10-06 13:14:00.000 142 mm [Hg] Systolic Blood Pressure 2024-10-01 11:14:00.000 138 mm [Hg] Systolic Blood Pressure 2024-10-01 10:27:00.000 138 mm [Hg] Systolic Blood Pressure 2024-09-22 12:37:00.000 131 mm [Hg] Systolic Blood Pressure 2024-09-18 09:29:00.000 132 mm [Hg] Diastolic Blood Pressure 2024-11-09 10:21:22.000 64 mm [Hg] Diastolic Blood Pressure 2024-11-03 12:50:00.000 62 mm [Hg] Diastolic Blood Pressure 2024-11-03 12:08:00.000 62 mm [Hg] Diastolic Blood Pressure 2024-11-02 12:00:06.000 62 mm [Hg] Diastolic Blood Pressure 2024-10-30 15:16:00.000 64 mm [Hg] Diastolic Blood Pressure 2024-10-30 13:42:00.000 60 mm [Hg] Diastolic Blood Pressure 2024-10-30 10:17:45.000 64 mm [Hg] Diastolic Blood Pressure 2024-10-15 11:14:00.000 80 mm [Hg] Diastolic Blood Pressure 2024-10-13 12:29:00.000 64 mm [Hg] Diastolic Blood Pressure 2024-10-08 11:56:00.000 70 mm [Hg] Diastolic Blood Pressure 2024-10-06 13:14:00.000 64 mm [Hg] Diastolic Blood Pressure 2024-10-01 11:14:00.000 68 mm [Hg] Diastolic Blood Pressure 2024-10-01 10:27:00.000 68 mm [Hg] Diastolic Blood Pressure 2024-09-22 12:37:00.000 66 mm [Hg] Diastolic Blood Pressure 2024-09-18 09:29:00.000 66 mm [Hg] Plan of Treatment Planned Activity Planned Date Details Comments Future Scheduled Test AGENCY MAY PERFORM A RESUMPTION OF CARE VISIT FOLLOWING ANY HOSPITAL ADMISSION. PT TO EVALUATE, OBSERVE / ASSESS, AND MONITOR, DESIGN PRINTING MACHINE SETTER TO OBSERVE AND MONITOR, PROVIDE SKILLED THERAPEUTIC INTERVENTION, ACTIVITY, EDUCATION, AND TRAINING TO ADDRESS; [code = AGENCY MAY PERFORM A RESUMPTION OF CARE VISIT FOLLOWING ANY HOSPITAL ADMISSION. PT TO EVALUATE, OBSERVE / ASSESS, AND MONITOR, DESIGN PRINTING MACHINE SETTER TO OBSERVE AND MONITOR, PROVIDE SKILLED THERAPEUTIC INTERVENTION, ACTIVITY, EDUCATION, AND TRAINING TO ADDRESS;] Future Scheduled Test PT / DESIGN PRINTING MACHINE SETTER T O EDUCATE ON HYPERTENSION SELF-MANAGEMENT [code = PT / DESIGN PRINTING MACHINE SETTER TO EDUCATE ON HYPERTENSION SELF-MANAGEMENT] Future Scheduled Test PT / DESIGN PRINTING MACHINE SETTER T O EDUCATE ON COPD SELF-MANAGEMENT [code = PT / DESIGN PRINTING MACHINE SETTER TO EDUCATE ON COPD SELF-MANAGEMENT] Future Scheduled Test PT / DESIGN PRINTING MACHINE SETTER T O EDUCATE ON DIABETES SELF- MANAGEMENT [code = PT / DESIGN PRINTING MACHINE SETTER TO EDUCATE ON DIABETES SELF- MANAGEMENT] Future Scheduled Test PT TO ASSE SS / DESIGN PRINTING MACHINE SETTER TO MONITOR FOR AND REPORT EARLY SIGNS OF ANTICOAGULANT TOXICITY TO THE PHYSICIAN AND/OR THE RN CLINICAL BARK SCALER FOR PHYSICIAN NOTIFICATION AND TO PROVIDE PATIENT/CAREGIVER EDUCATION ON ANTICOAGULANT THERAPY [code = PT TO ASSESS / DESIGN PRINTING MACHINE SETTER TO MONITOR FOR AND REPORT EARLY SIGNS OF ANTICOAGULANT TOXICITY TO THE PHYSICIAN AND/OR THE RN CLINICAL BARK SCALER FOR PHYSICIAN NOTIFICATION AND TO PROVIDE PATIENT/CAREGIVER EDUCATION ON ANTICOAGULANT THERAPY] Future Scheduled Test PT TO ASSE SS / DESIGN PRINTING MACHINE SETTER TO MONITOR CARDIO/RESPIRATORY SYSTEM; AND NOTIFY THE PHYSICIAN AND/OR THE RN CLINICAL BARK SCALER FOR PHYSICIAN NOTIFICATION FOR EARLY SIGNS AND SYMPTOMS OF EXACERBATION OR DETERIORATION. [code = PT TO ASSESS / DESIGN PRINTING MACHINE SETTER TO MONITOR CARDIO/RESPIRATORY SYSTEM; AND NOTIFY THE PHYSICIAN AND/OR THE RN CLINICAL BARK SCALER FOR PHYSICIAN NOTIFICATION FOR EARLY SIGNS AND SYMPTOMS OF EXACERBATION OR DETERIORATION.] Future Scheduled Test PT / DESIGN PRINTING MACHINE SETTER T O MONITOR AND EDUCATE ON OXYGEN SATURATION DURING ADLS/IADLS, NOTIFY PHYSICIAN AND/OR THE RN CLINICAL BARK SCALER FOR PHYSICIAN NOTIFICATION AND IF O2 SATS BELOW PHYSICIAN ORDERED PARAMETERS AFTER 10 MIN OF REST [code = PT / DESIGN PRINTING MACHINE SETTER TO MONITOR AND EDUCATE ON OXYGEN SATURATION DURING ADLS/IADLS, NOTIFY PHYSICIAN AND/OR THE RN CLINICAL BARK SCALER FOR PHYSICIAN NOTIFICATION AND IF O2 SATS BELOW PHYSICIAN ORDERED PARAMETERS AFTER 10 MIN OF REST] Future Scheduled Test PT / DESIGN PRINTING MACHINE SETTER T O MONITOR FOR HYPO/HYPERGLYCEMIA AND CONDUCT ROUTINE FOOT INSPECTIONS. RECORD PATIENT REPORTED BLOOD SUGAR LEVELS AND NOTIFY PHYSICIAN AND/OR THE RN CLINICAL BARK SCALER FOR PHYSICIAN NOTIFICATION IF BLOOD SUGAR LEVELS ARE OUTSIDE ORDERED PARAMETERS. TEACH PATIENT/CAREGIVER ON DAILY FOOT INSPECTIONS [code = PT / DESIGN PRINTING MACHINE SETTER TO MONITOR FOR HYPO/HYPERGLYCEMIA AND CONDUCT ROUTINE FOOT INSPECTIONS. RECORD PATIENT REPORTED BLOOD SUGAR LEVELS AND NOTIFY PHYSICIAN AND/OR THE RN CLINICAL BARK SCALER FOR PHYSICIAN NOTIFICATION IF BLOOD SUGAR LEVELS ARE OUTSIDE ORDERED PARAMETERS. TEACH PATIENT/CAREGIVER ON DAILY FOOT INSPECTIONS] Future Scheduled Test PT / DESIGN PRINTING MACHINE SETTER T O INSTRUCT PATIENT/CAREGIVER ON RISK FOR HOSPITALIZATION/EMERGENCY ROOM VISITS, TEACH SIGNS AND SYMPTOMS THAT PUT PATIENT AT RISK, WHEN TO NOTIFY NURSE/PHYSICIAN OF COMPLICATIONS/DECLINE, AND WHEN TO CALL 911. 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 MAY TEACH THE PATIENT FLOOR RECOVERY WHEN CLINICALLY APPROPRIATE [code = PT/DESIGN PRINTING MACHINE SETTER TO IDENTIFY FALL RISK FACTORS; EDUCATE THE PATIENT/CAREGIVER ON WAYS TO REDUCE FALL RISK FACTORS AND ESTABLISH HOME EXERCISE PROGRAM TO MINIMIZE FALL RISK. MAY TEACH THE PATIENT FLOOR RECOVERY WHEN CLINICALLY APPROPRIATE] Future Scheduled Test PT / DESIGN PRINTING MACHINE SETTER M AY EDUCATE ON PAIN MANAGEMENT CLINICALLY INDICATED, INCLUDING NON-PHARMACOLOGICAL PAIN REDUCTION TECHNIQUES. [code = PT / DESIGN PRINTING MACHINE SETTER MAY EDUCATE ON PAIN MANAGEMENT CLINICALLY INDICATED, INCLUDING NON-PHARMACOLOGICAL PAIN REDUCTION TECHNIQUES. ] Future Scheduled Test SIT TO/FRO M STAND TRANSFERS (PT/DESIGN PRINTING MACHINE SETTER) [code = SIT TO/FROM STAND TRANSFERS (PT/DESIGN PRINTING MACHINE SETTER)] Future Scheduled Test PT/DESIGN PRINTING MACHINE SETTER TO PROVIDE GAIT TRAINING FOR IMPROVED MOBILITY AND /OR TO NORMALIZE GAIT PATTERN [code = PT/DESIGN PRINTING MACHINE SETTER TO PROVIDE GAIT TRAINING FOR IMPROVED MOBILITY AND /OR TO NORMALIZE GAIT PATTERN] Future Scheduled Test NEUROMUSCU LAR RE-EDUCATION / BALANCE / POSTURAL CONTROL (PT) [code = NEUROMUSCULAR RE-EDUCATION / BALANCE / POSTURAL CONTROL (PT)] Future Scheduled Test THERAPEUTI C EXERCISES AND ESTABLISHING A HOME EXERCISE PROGRAM (PT/DESIGN PRINTING MACHINE SETTER) [code = THERAPEUTIC EXERCISES AND ESTABLISHING A HOME EXERCISE PROGRAM (PT/DESIGN PRINTING MACHINE SETTER)] Goal Patient Goal - TO WALK Goal [...] End Date/Time Encounter Type Admission Type Attending [facility] Care Department Encounter ID Discharge Date Discharge Status Discharge Condition Discharge Reason Percent Goals Met 2024-09-18 00:00:00 2024-11-16 00:00:00 Outpatient BETSY REID [facility] [id number]
--- OUTSIDE RECORDS SUMMARY | 2024-11-10 14:37 | XMS_ITS | Clinical Summary ---
Author Organization [facility] Address [address] [place] [address] Phone Care Team Providers Care Staying Machine Operator Name Role Phone Gagan Coyne MD Primary Care Provider [phone] Allergies Active Allergy Reactions Criticality Noted Date [...] Behavioral Health Behavioral Health Yes Carmina Gao, MOTOR [employer] Note: I want to be happier, want to live more, don't want my depression to [place] [id number] MEDICARE [facility] Care Teams Staying Machine Operator Relationship Specialty Start Date End Date Gaagn Coyne MD [address] [place] [id number] PCP - General Family Medicine 01/16/20
--- OUTSIDE RECORDS SUMMARY | 2024-11-10 14:37 | XMS_ITS | Patient Health Summary ---
Author Organization [facility] Address [address] [place] [place] [address] Care Team Providers Care Chemistry Manager Name Role Phone Akin Coyne MD Primary Care Provider [phone] Adan Umana MD Unavailable [phone] Note from [facility],non-owned Affiliates and Associated Physician Practices is amultiple site organization consisting of ambulatory clinics and hospital sitesin [place], [place], [place] and [place]. This disclosure is being madepursuant to the Care Everywhere program and may not contain all information available regarding this patient. Last updated 18.[facility] Allergies * Cephalexin(Swelling) * Pseudoephedrine-Ibuprofen(Unknown) Medications * [...] by mouth every 12 hours * HYDROcodone-acetaminophen ([place]) 5-325 MG tablet(Started 10/18/2023) Take 1 (one) [...] aphy Narrative 02/20/2023 1:48 PM CDT Sabrina Delgadillo RT(R) 02/21/2023 8:39 AM AP, axillary lateral and outlet radiographs of the left shoulder(s) obtained on 02/20/2023 reveal glenohumeral joint space narrowing with 3mm joint space remaining and and inferior humeral osteophyte that is approximately 4x20 mm in length consistent with osteoarthritis. Acromiohumeral distance is relatively preserved. There is no glenoid retroversion, and no posterior subluxation. Hypertrophic and cystic changes noted at the greater tuberosity. X [...] tuberosity. No bony abnormalities are otherwise noted. Nita Dimas MD DIAGNOSTIC IMAGING ORDERABLES * XR KNEE LEFT 3VW (01/30/2022 11:52 AM CDT) Anatomical Region Laterality Modality Lower Extremity Computed Radiogr aphy Narrative 01/30/2022 11:51 AM CDT James Laurent 01/31/2022 3:58 PM See progress notes for patient results. [...] Not detected, Invalid 01/17/2020 1:49 PM CDT [facility] Microbiology SPECIMEN FROM NASOPHARYNGEAL STRUCTURE / Unknown Collection / Unknown 01/16/2020 11:20 AM CDT 01/16/2020 8:06 PM CDT Narrative [facility] - 01/17/2020 1:49 PM CDT This Real Time RT-PCR assay was developed and its performance characteristics determined by [facility]. This test has been [...] Dg Soares MD LAB - MICROBIOLOGY ORDERABLES [facility] [address] [place] [address], [facility] [phone] * US ABDOMEN LIMITED (05/13/2018 9:15 AM [...] on 05/13/2018 11:53 AM Reading Radiologist: Maximo Sahh MD on 05/13/2018 at 1:09 PM Shahriar [...] Cook MD DIAGNOSTIC IMAGING O RDERABLES * PAIN MANAGEMENT PROCEDURE TIME (01/27/2018 8:53 AM CDT) Anatomical Region Laterality Modality X-Ray Angiograph y Narrative 01/27/2018 9:14 AM Adan Crystal MD 01/27/2018 9:14 AM Bilateral Sacroiliac Joint Injection Under Fluoroscopy Blanca Nam [id number] 01/27/2018 Allergies Allergen Reactions Keflex [Cephalexin] Swelling Procedure: Bilateral Sacroiliac Joint Injection Under Fluoroscopy Indication for Procedure: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 Once the tip of the needle was in proper position, 1 ml of Kenalog 40 mg per ml and 1.0 ml of 1 [...] denies complaints, DC to home. Procedure codes: 49844 Adan Umana MD Adan Umana MD DIAGNOSTIC IMAGING O RDERABLES * XR SACROILIAC JOINTS 3+ VW (07/19/2015 3:46 PM BILLING AND QUALITY TECHNICIAN) Anatomical Region Laterality Modality Pelvis, Lower Extremity [facility] 07/19/2015 3:52 PM BILLING AND QUALITY TECHNICIAN Narrative 07/19/2015 4:28 PM BILLING AND QUALITY TECHNICIAN 3 VIEWS SACROILIAC JOINTS AP PELVIS SINGLE [...] HANDS BILATERAL 2 VIEWS (07/19/2015 3:46 PM BILLING AND QUALITY TECHNICIAN) Anatomical Region Laterality Modality Wrist / Hand, Upper Extremity Ra diographic Imaging 07/19/2015 3:52 PM BILLING AND QUALITY TECHNICIAN Narrative 07/19/2015 4:28 PM BILLING AND QUALITY TECHNICIAN 3 VIEWS SACROILIAC JOINTS AP PELVIS SINGLE [...] 1 OR 2 VW (07/19/2015 3:45 PM BILLING AND QUALITY TECHNICIAN) Anatomical Region Laterality Modality Pelvis Radiographic Kourtney ging 07/19/2015 3:52 PM BILLING AND QUALITY TECHNICIAN Narrative 07/19/2015 4:28 PM BILLING AND QUALITY TECHNICIAN 3 VIEWS SACROILIAC JOINTS AP PELVIS SINGLE [...] PM Shahriar Cook MD DIAGNOSTIC IMAGING O [facility] Care Teams Chemistry Manager Relationship Specialty Start Date End Date Akin Coyne MD [address] [place] [id number] PCP - General Family Medicine 07/19/15 [place] [id number] [address] Physical Medicine and Rehabilitation 01/23/18
--- OUTSIDE RECORDS SUMMARY | 2024-11-10 14:37 | XMS_ITS | Clinical Summary ---
Author Organization [facility] Address [address] [place] [id number] Care Team Providers Care Security Attendant Name Role Phone Unavailable Primary Care Provider Unavailabl e Social History Tobacco Use Types Packs/Day Years Used Date Smoking Tobacco: Never Assessed Comments Unknown Sex and Gender Information Value Date Recorded Sex Assigned at Not on file Legal Sex Female 4:07 PM CDT Gender Identity Not on file Sexual Orientation Not on file Plan of Treatment Health Maintenance Due Date Last Done Comments Hepatitis C 11/16/1963 DTaP, Tdap and Td Vaccines ( 1 - Tdap) 1964 Zoster Vaccines (1 of 2) 11/16/1995 Dexa Scan (General) 2010 Pneumococcal Vaccine: 65+ Ye ars (1 of 1 - PCV) 2010 RSV Immunization or 60+ Years (1 - 1-dose 75+ series) 2020 COVID-19 Vaccine (2023-2 5 season) 2024 Influenza Adult (#1) 2024 Meningococcal B Vaccine Aged Out No l onger eligible based on patient's age to complete this topic Meningococcal Vaccine Aged Out No sita nathaly eligible based on patient's age to complete this topic RSV Immunizations Under 20 Months Aged Out No longer eligible based on patient's age to complete this topic
--- OUTSIDE RECORDS SUMMARY | 2024-11-10 14:37 | XMS_ITS | Clinical Summary ---
Author Organization [facility] Address [address] [place] [address] Care Team Providers Care Doughmaker Name Role Phone Akin Coyne MD Primary Care Provider [phone] Adan Umana MD Unavailable [phone] Source Comments [facility],non-owned Affiliates and Associated Physician Practices is amultiple site organization consisting of ambulatory clinics and hospital sitesin [place], [place], [place] and [place]. This disclosure is being madepursuant to the Care Everywhere program and may not contain all information available regarding this patient. Last updated 18.[facility] Allergies Active Allergy Reactions Criticality Noted Date [...] every 12 hours 08/12/2023 Active HYDROcodone-acetam inophen ([place]) 5-325 MG tablet Take 1 (one) tablet [...] Comments BONE DENSITY TESTING 1945 MEDICARE AWV 12 MONTHS 1945 HEPATITIS C SCREENING 11/11/1963 DTAP/TDAP/TD VACCINES (1 - Tdap) 1964 PNEUMOCOCCAL VACCINE 50+ (1 of 1 - PCV) 11/16/1995 ZOSTER VACCINE (1 of 2) 11/16/1995 Respiratory Syncytial Virus (RSV) Vaccine Pt: or over 60 yrs (1 - 1-dose 75+ series) 2020 COVID-19 VACCINE (1 - 2023-2 5 season) 2024 INFLUENZA VACCINE (#1) 2024 DEPRESSION SCREENING 09/16/2024 12/11/2022 HEPATITIS B VACCINE Aged Out No longe r eligible based on patient's age to complete this topic HIB VACCINE Aged Out No longer eligi ble based on patient's age to complete this topic HPV VACCINE Aged Out No longer eligi ble based on patient's age to complete this topic MENINGOCOCCAL (Group B) VACCINE Aged Out No longer eligible based on patient's age to complete this topic MENINGOCOCCAL VACCINE Aged Out No sita nathaly eligible based on patient's age to complete this topic Care Teams Doughmaker Relationship Specialty Start Date End Date Akin Coyne MD [address] [place] [id number] PCP - General Family Medicine 07/19/15 [place] [id number] [address] Physical Medicine and Rehabilitation 01/23/18
[2024-11-10 16:36] LABS: Basophils Percent Auto 0.3 % (0.2-1.2); Eosinophils Absolute Auto 0.1 K/mm3 (0-0.3); Eosinophils Percent Auto 1.9 % (0-4.4); Hematocrit 21.3 % (37.0-47.0); Immature Granulocyte Absolute 0.03 K/mm3 (0.00-0.031); Immature Granulocyte Percent A 0.4 % (0-0.5); Lymphocytes Absolute Auto 1.97 K/mm3 (0.9-3.2); Lymphocytes Percent Auto 26.7 % (18.3-44.2); Mean Corpuscular HGB Conc 29.1 g/dl (32-36); Mean Corpuscular Hemoglobin 21.5 pg (26-34); Mean Platelet Volume 9.4 fl (7.4-10.4); Monocytes Absolute Auto 0.6 K/mm3 (0.1-0.6); Neutrophils Absolute Auto 4.6 K/mm3 (1.3-6.7); Neutrophils Percent Auto 62.7 % (45.5-73.1); Platelet Count Result 307 k/mm3 (150-375); Red Blood Count 2.88 M/mm3 (4.2-5.4); Red Cell Distribution Width 17.5 % (11.5-14.5); White Blood Count 7.4 K/mm3 (4.5-10.0)
[2024-11-10 16:50] LABS: Hemoglobin 6.2 g/dL (12.0-15.0)
[2024-11-10 16:51] LABS: Alanine Aminotransferase 11 U/L (6-35); Albumin Level 3.6 g/dL (3.5-5.1); Alkaline Phosphatase 129 U/L (38-126); Anion Gap 7 mmol/L (4-12); Aspartate Amino Transferase 15 U/L (14-36); Bilirubin,Total 0.3 mg/dL (0.2-1.3); Blood Urea Nitrogen 7 mg/dL (7-17); Calcium 8.8 mg/dL (8.4-10.2); Carbon Dioxide 28 mmol/L (22-30); Chloride 103 mmol/L (98-107); Estimated CRCL calculation 71 ml/min; Estimated Glomerular Filt Rate > 60; Glucose 121 mg/dL (65-110); Hypochromasia 1+; Ovalocytes 1+; Platelet Estimate Adequate (Adequate); Potassium 3.3 mmol/L (3.4-5.0); Schistocytes None Seen; Sodium 138 mmol/L (137-145); Target Cells 1+
--- OUTSIDE RECORDS SUMMARY | 2024-11-10 16:51 | XMS_ITS | Encounter Summary ---
Author Organization [facility] Address [address] [place] [address] [address] Team Prov[address] Care [address] Railway Line Installer Name Role Phone Unavailable Primary Care Provider Unavailabl e Encounter Details Date Type Department Care Team (Late st Contact Info) Description 11/03/2001 Outpatient Historical HIS MRI DEPT (Excluded Provider) [place] [id number] [address] [facility] [address] [place] [address] LUMB/LUMBOSAC DISC DEGEN (Primary Dx) Social History Tobacco Use Types Packs/Day Years Used Date Smoking Tobacco: Never Assessed Comments Unknown Sex and Gender Information Value Date Recorded Sex Assigned at Not on file Legal Sex Female 4:14 AM DIRECTOR CLINICAL APPLICATIONS Gender Identity Not on file Sexual Orientation Not on file documented as of this encounter Plan of Treatment Not on file documented as of this encounter Visit Diagnoses Diagnosis Degeneration of lumbar or lumbosacral intervertebral disc- Primary documented in this encounter
--- OUTSIDE RECORDS SUMMARY | 2024-11-10 16:51 | XMS_ITS | Encounter Summary ---
Author Organization [facility] Address [address] [place] [address] Care Team Providers Care Clinical Courier Name Role Phone Unavailable Primary Care Provider Unavailabl e Encounter Details Date Type Department Care Team (Late st Contact Info) Description 10/31/2001 Outpatient Historical Division of Neurology [address] [address] (Excluded Provider) [place] [address] [facility] [address] [place] [address] Social History Tobacco Use Types Packs/Day Years Used Date Smoking Tobacco: Never Assessed Comments Unknown Sex and Gender Information Value Date Recorded Sex Assigned at Not on file Legal Sex Female 4:14 AM UTILIZATION REVIEW NURSE Gender Identity Not on file Sexual Orientation Not on file documented as of this encounter Plan of Treatment Not on file documented as of this encounter Visit Diagnoses Not on filedocumented in this encounter
--- OUTSIDE RECORDS SUMMARY | 2024-11-10 16:51 | XMS_ITS | Clinical Summary ---
Author Organization Unknown Care Team Providers Care Tester Regulator Name Role Phone IGGY BOOKER, ASHLEY Unavailable Unavailabl e JOSHUA PT, BETSY Unavailable Unavailable MARCELO OT, ABNER Unavailable Unavailable CHELA LABEL MACHINE OPERATOR, DENVER Unavailable Unavailabl e LUPCHO KANU/TAMAYO, OSBALDO Unavailable Unavaila mariana RIGGS, KYLE Unavailable Unavailable Payers Payer Name Policy Type Policy Number Effective Date Expira tion Date MEDICARE.[facility] [id number] Problems Condition Name Condition Details Condition Category [...] CIGARETTES, UNCOMPLICATE D Active 09-16 00:00: 00 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) USE OF ANTITHROMBOT ICS/ANTIPLAT ELETS Active 09-16 00:00: 00 PRSNL HX OF TIA (TIA), 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 09-16 00:00: 00 HISTORY OF FALLING Active 09-16 00:00: 00 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) USE OF ORAL HYPOGLYCEMIC DRUGS Active [...] 0-11 00:00: 00 09-14 23:59 :00 No [id number] NEEDED FOR ANXIETY 1 tablet DAILY 1 tablet DAILY (route: oral) Med Classific ation: Central Nervous System Agents pantoprazol e 40 mg tablet,michael yed release 8-02 00:00: 00 09-14 23:59 :00 No [id number] STOMACH 1 tablet DAILY 1 tablet DAILY (route: oral) Med Classific ation: Gastroint estinal Therapy Agents azathioprin e 50 mg tablet 2020-09 0-07 00:00: 00 09-14 23:59 :00 No [id number] ORGAN REJECTION, PAIN 2 tablet DAILY 2 tablet DAILY (route: oral) Med Classific ation: Immunosup pressive Agents amlodipine 5 mg tablet 9-21 00:00: 00 09-14 23:59 :00 No [id number] HTN 1 tablet DAILY 1 tablet DAILY (route: oral) Med Classific ation: Cardiovas cular Therapy Agents trazodone 50 mg tablet 1-14 00:00: 00 09-14 23:59 :00 No [id number] DEPRESSION 2 tablet BEDTIME 2 tablet BEDTIME (route: oral) Med Classific ation: Central Nervous System Agents metoprolol succinate ER 100 mg tablet,exte nded release 24 hr 8-11 00:00: 00 09-14 23:59 :00 No [id number] HTN 1 tablet DAILY 1 tablet DAILY (route: oral) Med Classific ation: Cardiovas cular Therapy Agents gabapentin 300 mg capsule 9-04 00:00: 00 09-14 23:59 :00 No [id number] PAIN 1 capsule 3 TIMES DAILY 1 capsule 3 TIMES DAILY (route: oral) Med Classific ation: Central Nervous System Agents tizanidine 2 mg tablet 9-15 00:00: 00 09-14 23:59 :00 No [id number] MUSCLE SPASM 1 tablet BEDTIME 1 tablet BEDTIME (route: oral) Med Classific ation: Locomotor System gabapentin 300 mg capsule 2020-09 0-06 00:00: 00 07-18 00:00 :00 No [id number] Per instruc tions Per instructio ns (route: oral) Med Classific ation: Central Nervous System Agents lamotrigine 100 mg tablet 9-04 00:00: 00 09-14 23:59 :00 No [id number] SEIZURE 1 tablet 2 TIMES DAILY 1 tablet 2 TIMES DAILY (route: oral) Med Classific ation: Central Nervous System Agents duloxetine 60 mg capsule,del ayed release 9-04 00:00: 00 09-14 23:59 :00 No [id number] MOOD, DEPRESSION 2 capsule DAILY 2 capsule DAILY (route: oral) Med Classific ation: Central Nervous System Agents methylpredn isolone 4 mg tablets in a dose pack 2020-09 0-31 00:00: 00 07-18 00:00 :00 No [id number] Per instruc tions Per instructio ns (route: oral) Med Classific ation: Endocrine BD Tuberculin Syringe 1 mL 25 gauge x 5/8 9-09 00:00: 00 07-18 00:00 :00 No [id number] Per instruc tions Per instructio ns (route: miscellane ous) Med Classific ation: Medical Supplies and Durable Medical Equipment (DME) albuterol sulfate 1.25 mg/3 mL solution for nebulizatio n 2020-09 00:00: 00 09-29 23:59 :00 No [id number] NEEDED FOR SOB 3 mL DAILY 3 mL DAILY (route: inhalation ) Med Classific ation: Respirato ry Therapy Agents Aspirin Low Dose 81 mg tablet,michael yed release 2020-09 00:00: 00 09-14 23:59 :00 No [id number] BLOOD THINNER 1 tablet DAILY 1 tablet DAILY (route: oral) Med Classific ation: Hematolog ical Agents biotin 5,000 mcg disintegrat ing tablet 2020-09 00:00: 00 09-14 23:59 :00 No [id number] SUPPLEMENT 1 tablet DAILY 1 tablet DAILY (route: oral) Med Classific ation: Electroly te Balance-N utritiona l Products Centrum Silver 0.4 mg-300 mcg-250 mcg tablet 2020-09 00:00: 00 09-14 23:59 :00 No [id number] SUPPLEMENT 1 tablet DAILY 1 tablet DAILY (route: oral) Med Classific ation: Electroly te Balance-N utritiona l Products Cosentyx 150 mg/mL subcutaneou s syringe 2020-09 00:00: 00 09-14 23:59 :00 No [id number] ARTHRITIS 150 mg DIRECTED 150 mg DIRECTED (route: subcutaneo us) Med Classific ation: Dermatolo gical metformin 500 mg tablet 2020-09 00:00: 00 09-14 23:59 :00 No [id number] DIABETES MELLITUS 1 tablet DAILY 1 tablet DAILY (route: oral) Med Classific ation: Endocrine methylpredn isolone 4 mg tablets in a dose pack 2020-09 00:00: 07-22 23:59 :00 No [id number] ARTHRITIS Per instruc tions DIRECTED Per instructio ns DIRECTED (route: oral) Med Classific ation: Endocrine PreserVisio n AREDS-2 250 mg-90 mg-40 mg-1 mg capsule 2020-09 00:00: 00 09-14 23:59 :00 No [id number] SUPPLEMENT 1 capsule DAILY 1 capsule DAILY (route: oral) Med Classific ation: Alternati ve Therapy Tylenol Extra Strength 500 mg tablet 2020-09 00:00: 00 09-14 23:59 :00 No [id number] PAIN 2 tablet 3 TIMES DAILY 2 tablet 3 TIMES DAILY (route: oral) Med Classific ation: Analgesic , Anti-infl ammatory or Antipyret ic Vitamin D3 50 mcg (2,000 unit) capsule 2020-09 00:00: 00 09-14 23:59 :00 No [id number] SUPPLEMENT 1 capsule DAILY 1 capsule DAILY (route: oral) Med Classific ation: Electroly te Balance-N utritiona l Products Methylpred DP 4 mg tablets in a dose pack 2020-09 00:00: 00 09-29 23:59 :00 No [id number] TO REDUCE SYMPTOMS SUCH PAIN AND SWELLING 4 mg BEFORE MEALS 4 mg BEFORE MEALS (route: oral) Med Classific ation: Endocrine docusate sodium 100 mg capsule 09-22 00:00: 00 09-14 23:59 :00 No [id number] CONSTIPATIO N 1 capsule 2 TIMES DAILY 1 capsule 2 TIMES DAILY (route: oral) Med Classific ation: Gastroint estinal Therapy Agents Flonase Allergy Relief 50 mcg/actuati on nasal spray,suspe nsion 09-22 00:00: 00 09-14 23:59 :00 No [id number] NASAL CONGESTION, ALLERGIES 2 spray 2 TIMES DAILY 2 spray 2 TIMES DAILY (route: nasal) Med Classific ation: Respirato ry Therapy Agents prednisone 10 mg tablet 09-22 00:00: 00 10-04 23:59 :00 No [id number] STEROID 2 tablet DAILY 2 tablet DAILY (route: oral) Med Classific ation: Endocrine Vitamin C 500 mg tablet 09-22 00:00: 00 09-14 23:59 :00 No [id number] VITAMIN C 1 tablet DAILY 1 tablet DAILY (route: oral) Med Classific ation: Electroly te Balance-N utritiona l Products albuterol sulfate HFA 90 mcg/actuati on aerosol inhaler 09-22 00:00: 00 09-14 23:59 :00 No [id number] SHORTNESS OF BREATH. 2 puff EVERY 4 HOURS 2 puff EVERY 4 HOURS (route: inhalation ) Med Classific ation: Respirato ry Therapy Agents amlodipine 5 mg tablet 09-18 00:00: 00 Yes [id number] BLOOD PRESSURE 1 tablet DAILY 1 tablet DAILY (route: oral) Med Classific ation: Cardiovas cular Therapy Agents atorvastati n 40 mg tablet 09-18 00:00: 00 Yes [id number] CHOLESTEROL 1 tablet DAILY 1 tablet DAILY (route: oral) Med Classific ation: Cardiovas cular Therapy Agents clopidogrel 75 mg tablet 09-18 00:00: 00 Yes [id number] BLOOD THINNER 1 tablet DAILY 1 tablet DAILY (route: oral) Med Classific ation: Hematolog ical Agents Cosentyx 300 mg/2 Syringes (150 mg/mL) subcutaneou s 09-18 00:00: 00 Yes [id number] RHEUMATOID ARTHRITIS 2 mL EVERY OTHER WEEK 2 mL EVERY OTHER WEEK (route: subcutaneo ) Med Classific ation: Dermatolo gical Cymbalta 60 mg capsule,del ayed release 09-18 00:00: 00 Yes [id number] ANXIETY 2 capsule DAILY 2 capsule DAILY (route: oral) Med Classific ation: Central Nervous System Agents folic acid 1 mg tablet 09-18 00:00: 00 Yes [id number] SUPPLEMENT 1 tablet DAILY 1 tablet DAILY (route: oral) Med Classific ation: Electroly te Balance-N utritiona l Products gabapentin 300 mg capsule 09-18 00:00: 00 Yes [id number] SEIZURE 2 capsule 2 TIMES DAILY 2 capsule 2 TIMES DAILY (route: oral) Med Classific ation: Central Nervous System Agents hydralazine 10 mg tablet 09-18 00:00: 00 Yes [id number] BLOOD PRESSURE 1 tablet 2 TIMES DAILY 1 tablet 2 TIMES DAILY (route: oral) Med Classific ation: Cardiovas cular Therapy Agents hydrocodone 5 mg-acetamin ophen 325 mg tablet 09-18 00:00: 00 Yes [id number] NEEDED FOR PAIN 1 tablet EVERY 6 HOURS 1 tablet EVERY 6 HOURS (route: oral) Med Classific ation: Analgesic , Anti-infl ammatory or Antipyret ic hydroxyzine HCl 25 mg tablet 09-18 00:00: 00 Yes [id number] ALLERGIES 1 tablet DAILY 1 tablet DAILY (route: oral) Med Classific ation: Central Nervous System Agents I-James 300 mcg-200 mg-27 mg-2 mg tablet 09-18 00:00: 00 Yes [id number] SUPPLEMENT 2 tablet DAILY 2 tablet DAILY (route: oral) Med Classific ation: Electroly te Balance-N utritiona l Products isosorbide mononitrate ER 30 mg tablet,exte nded release 24 hr 09-18 00:00: 00 Yes [id number] BLOOD PRESSURE 0.5 tablet DAILY 0.5 tablet DAILY (route: oral) Med Classific ation: Cardiovas cular Therapy Agents Jardiance 10 mg tablet 09-18 00:00: 00 Yes [id number] DIABETES 1 tablet DAILY 1 tablet DAILY (route: oral) Med Classific ation: Endocrine lamotrigine 25 mg tablet 09-18 00:00: 00 Yes [id number] SEIZURE 3 tablet 2 TIMES DAILY 3 tablet 2 TIMES DAILY (route: oral) Med Classific ation: Central Nervous System Agents losartan 100 mg tablet 09-18 00:00: 00 Yes [id number] BLOOD PRESSURE 1 tablet DAILY 1 tablet DAILY (route: oral) Med Classific ation: Cardiovas cular Therapy Agents metoprolol succinate ER 50 mg tablet,exte nded release 24 hr 09-18 00:00: 00 Yes [id number] BLOOD PRESSURE 1 tablet DAILY 1 tablet DAILY (route: oral) Med Classific ation: Cardiovas cular Therapy Agents primidone 50 mg tablet 09-18 00:00: 00 Yes [id number] SEIZURE 1 tablet DAILY 1 tablet DAILY (route: oral) Med Classific ation: Central Nervous System Agents trazodone 100 mg tablet 09-18 00:00: 00 Yes [id number] MOOD 1 tablet BEDTIME 1 tablet BEDTIME [...] TO EVALUATE, OBSERVE / ASSESS, AND MONITOR, LABEL MACHINE OPERATOR TO OBSERVE AND MONITOR, PROVIDE SKILLED THERAPEUTIC INTERVENTION, ACTIVITY, EDUCATION, AND TRAINING TO ADDRESS; [code = AGENCY MAY PERFORM A RESUMPTION OF CARE VISIT FOLLOWING ANY HOSPITAL ADMISSION. PT TO EVALUATE, OBSERVE / ASSESS, AND MONITOR, LABEL MACHINE OPERATOR TO OBSERVE AND MONITOR, PROVIDE SKILLED THERAPEUTIC INTERVENTION, ACTIVITY, EDUCATION, AND TRAINING TO ADDRESS;] Future Scheduled Test PT / LABEL MACHINE OPERATOR T O EDUCATE ON HYPERTENSION SELF-MANAGEMENT [code = PT / LABEL MACHINE OPERATOR TO EDUCATE ON HYPERTENSION SELF-MANAGEMENT] Future Scheduled Test PT / LABEL MACHINE OPERATOR T O EDUCATE ON COPD SELF-MANAGEMENT [code = PT / LABEL MACHINE OPERATOR TO EDUCATE ON COPD SELF-MANAGEMENT] Future Scheduled Test PT / LABEL MACHINE OPERATOR T O EDUCATE ON DIABETES SELF- MANAGEMENT [code = PT / LABEL MACHINE OPERATOR TO EDUCATE ON DIABETES SELF- MANAGEMENT] Future Scheduled Test PT TO ASSE SS / LABEL MACHINE OPERATOR TO MONITOR FOR AND REPORT EARLY SIGNS OF ANTICOAGULANT TOXICITY TO THE PHYSICIAN AND/OR THE RN CLINICAL MICA SPLITTER FOR PHYSICIAN NOTIFICATION AND TO PROVIDE PATIENT/CAREGIVER EDUCATION ON ANTICOAGULANT THERAPY [code = PT TO ASSESS / LABEL MACHINE OPERATOR TO MONITOR FOR AND REPORT EARLY SIGNS OF ANTICOAGULANT TOXICITY TO THE PHYSICIAN AND/OR THE RN CLINICAL MICA SPLITTER FOR PHYSICIAN NOTIFICATION AND TO PROVIDE PATIENT/CAREGIVER EDUCATION ON ANTICOAGULANT THERAPY] Future Scheduled Test PT TO ASSE SS / LABEL MACHINE OPERATOR TO MONITOR CARDIO/RESPIRATORY SYSTEM; AND NOTIFY THE PHYSICIAN AND/OR THE RN CLINICAL MICA SPLITTER FOR PHYSICIAN NOTIFICATION FOR EARLY SIGNS AND SYMPTOMS OF EXACERBATION OR DETERIORATION. [code = PT TO ASSESS / LABEL MACHINE OPERATOR TO MONITOR CARDIO/RESPIRATORY SYSTEM; AND NOTIFY THE PHYSICIAN AND/OR THE RN CLINICAL MICA SPLITTER FOR PHYSICIAN NOTIFICATION FOR EARLY SIGNS AND SYMPTOMS OF EXACERBATION OR DETERIORATION.] Future Scheduled Test PT / LABEL MACHINE OPERATOR T O MONITOR AND EDUCATE ON OXYGEN SATURATION DURING ADLS/IADLS, NOTIFY PHYSICIAN AND/OR THE RN CLINICAL MICA SPLITTER FOR PHYSICIAN NOTIFICATION AND IF O2 SATS BELOW PHYSICIAN ORDERED PARAMETERS AFTER 10 MIN OF REST [code = PT / LABEL MACHINE OPERATOR TO MONITOR AND EDUCATE ON OXYGEN SATURATION DURING ADLS/IADLS, NOTIFY PHYSICIAN AND/OR THE RN CLINICAL MICA SPLITTER FOR PHYSICIAN NOTIFICATION AND IF O2 SATS BELOW PHYSICIAN ORDERED PARAMETERS AFTER 10 MIN OF REST] Future Scheduled Test PT / LABEL MACHINE OPERATOR T O MONITOR FOR HYPO/HYPERGLYCEMIA AND CONDUCT ROUTINE FOOT INSPECTIONS. RECORD PATIENT REPORTED BLOOD SUGAR LEVELS AND NOTIFY PHYSICIAN AND/OR THE RN CLINICAL MICA SPLITTER FOR PHYSICIAN NOTIFICATION IF BLOOD SUGAR LEVELS ARE OUTSIDE ORDERED PARAMETERS. TEACH PATIENT/CAREGIVER ON DAILY FOOT INSPECTIONS [code = PT / LABEL MACHINE OPERATOR TO MONITOR FOR HYPO/HYPERGLYCEMIA AND CONDUCT ROUTINE FOOT INSPECTIONS. RECORD PATIENT REPORTED BLOOD SUGAR LEVELS AND NOTIFY PHYSICIAN AND/OR THE RN CLINICAL MICA SPLITTER FOR PHYSICIAN NOTIFICATION IF BLOOD SUGAR LEVELS ARE OUTSIDE ORDERED PARAMETERS. TEACH PATIENT/CAREGIVER ON DAILY FOOT INSPECTIONS] Future Scheduled Test PT / LABEL MACHINE OPERATOR T O INSTRUCT PATIENT/CAREGIVER ON RISK FOR HOSPITALIZATION/EMERGENCY ROOM VISITS, TEACH SIGNS AND SYMPTOMS THAT PUT PATIENT AT RISK, WHEN TO NOTIFY NURSE/PHYSICIAN OF COMPLICATIONS/DECLINE, AND WHEN TO CALL 911. 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 MAY TEACH THE PATIENT FLOOR RECOVERY WHEN CLINICALLY APPROPRIATE [code = PT/LABEL MACHINE OPERATOR TO IDENTIFY FALL RISK FACTORS; EDUCATE THE PATIENT/CAREGIVER ON WAYS TO REDUCE FALL RISK FACTORS AND ESTABLISH HOME EXERCISE PROGRAM TO MINIMIZE FALL RISK. MAY TEACH THE PATIENT FLOOR RECOVERY WHEN CLINICALLY APPROPRIATE] Future Scheduled Test PT / LABEL MACHINE OPERATOR M AY EDUCATE ON PAIN MANAGEMENT CLINICALLY INDICATED, INCLUDING NON-PHARMACOLOGICAL PAIN REDUCTION TECHNIQUES. [code = PT / LABEL MACHINE OPERATOR MAY EDUCATE ON PAIN MANAGEMENT CLINICALLY INDICATED, INCLUDING NON-PHARMACOLOGICAL PAIN REDUCTION TECHNIQUES. ] Future Scheduled Test SIT TO/FRO M STAND TRANSFERS (PT/LABEL MACHINE OPERATOR) [code = SIT TO/FROM STAND TRANSFERS (PT/LABEL MACHINE OPERATOR)] Future Scheduled Test PT/LABEL MACHINE OPERATOR TO PROVIDE GAIT TRAINING FOR IMPROVED MOBILITY AND /OR TO NORMALIZE GAIT PATTERN [code = PT/LABEL MACHINE OPERATOR TO PROVIDE GAIT TRAINING FOR IMPROVED MOBILITY AND /OR TO NORMALIZE GAIT PATTERN] Future Scheduled Test NEUROMUSCU LAR RE-EDUCATION / BALANCE / POSTURAL CONTROL (PT) [code = NEUROMUSCULAR RE-EDUCATION / BALANCE / POSTURAL CONTROL (PT)] Future Scheduled Test THERAPEUTI C EXERCISES AND ESTABLISHING A HOME EXERCISE PROGRAM (PT/LABEL MACHINE OPERATOR) [code = THERAPEUTIC EXERCISES AND ESTABLISHING A HOME EXERCISE PROGRAM (PT/LABEL MACHINE OPERATOR)] Goal Patient Goal - TO WALK Goal [...] End Date/Time Encounter Type Admission Type Attending [facility] Care Facility Care Department Encounter ID Discharge Date Discharge Status Discharge Condition Discharge Reason Percent Goals Met 2024-09-18 00:00:00 2024-11-16 00:00:00 Outpatient BETSY REID [facility] [id number]
--- OUTSIDE RECORDS SUMMARY | 2024-11-10 16:51 | XMS_ITS | Encounter Summary ---
Author Organization [facility] Address [address] [address] Care Team Providers Care Gift Consultant Name Role Phone Akin Coyne MD Primary Care Provider [phone] Adan Umana MD Unavailable [phone] Encounter Details Date Type Department Care Team (Late st Contact Info) Description 01/16/2020 Lab Requisition [facility] MICROBIOLOGY [address] [place] [address] Dg Soares MD Social History Tobacco Use [...] Not detected, Invalid 01/17/2020 1:49 PM CDT [facility] MICROBIOLOGY Microbiology SPECIMEN FROM NASOPHARYNGEAL STRUCTURE / Unknown Collection / Unknown 01/16/2020 11:20 AM CDT 01/16/2020 8:06 PM CDT Narrative [facility] MICROBIOLOGY - 01/17/2020 1:49 PM CDT This Real Time RT-PCR assay was developed and its performance characteristics determined by [facility]biology [facility]. This test has been [...] Dg Soares MD LAB - MICROBIOLOGY ORDERABLES [facility] MICROBIOLOGY [address] [place], [place] [address] [phone] documented in this encounter Visit Diagnoses Not on filedocumented in this encounter Care Teams Gift Consultant Relationship Specialty Start Date End Date Akin Coyne MD [address] [place] [id number] PCP - General Family Medicine 07/19/15 [place] [address] [address] [address] Physical Medicine and Rehabilitation 01/23/18 documented as of this encounter
--- OUTSIDE RECORDS SUMMARY | 2024-11-10 16:51 | XMS_ITS | Encounter Summary ---
Author Organization [facility] Address 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
--- OUTSIDE RECORDS SUMMARY | 2024-11-10 16:51 | XMS_ITS | Encounter Summary ---
Author Organization [facility] Address [address] [place] [address] Care Team Providers Care Freight Sales Broker Name Role Phone Unavailable Primary Care Provider Unavailabl e Encounter Details Date Type Department Care Team (Late st Contact Info) Description 10/03/2001 Outpatient Historical Division of Neurology [address] [address] (Excluded Provider) [place] [address] [facility] [address] [place] [address] Social History Tobacco Use Types Packs/Day Years Used Date Smoking Tobacco: Never Assessed Comments Unknown Sex and Gender Information Value Date Recorded Sex Assigned at Not on file Legal Sex 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
--- OUTSIDE RECORDS SUMMARY | 2024-11-10 16:51 | XMS_ITS | Encounter Summary ---
Author Organization [employer] Address [address] [place] [address] Care Team Providers Care Chemical Pathologist Name Role Phone Unavailable Primary Care Provider Unavailabl e Encounter Details Date Type Department Care Team (Latest Contact Info) Description 10/19/1998 Outpatient Historical HIS OBSERVATION BED Michael Harris MD [address] [place] [address] 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
--- OUTSIDE RECORDS SUMMARY | 2024-11-10 16:51 | XMS_ITS | Clinical Summary ---
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
--- OUTSIDE RECORDS SUMMARY | 2024-11-10 16:52 | XMS_ITS | Patient Health Summary ---
Author Organization [facility] Address [address] [place] [address] Care Team Providers Care Installers Mechanical Name Role Phone Akin Coyne MD Primary Care Provider [phone] Adan Umana MD Unavailable [phone] Note from [facility],non-owned Affiliates and Associated Physician Practices is amultiple site organization consisting of ambulatory clinics and hospital sitesin [place], [place], [place] and [place]. This disclosure is being madepursuant to the Care Everywhere program and may not contain all information available regarding this patient. Last updated 18.[facility] Allergies * Cephalexin(Swelling) * Pseudoephedrine-Ibuprofen(Unknown) Medications [...] by mouth every 12 hours * HYDROcodone-acetaminophen ([place]) 5-325 MG tablet(Started 10/18/2023) Take 1 (one) [...] Not detected, Invalid 01/17/2020 1:49 PM CDT [facility] MICROBIOLOGY Microbiology SPECIMEN FROM NASOPHARYNGEAL STRUCTURE / Unknown Collection / Unknown 01/16/2020 11:20 AM CDT 01/16/2020 8:06 PM CDT Narrative [facility] MICROBIOLOGY - 01/17/2020 1:49 PM CDT This Real Time RT-PCR assay was developed and its performance characteristics determined by [facility] Microbiology [facility]. This test has been [...] Dg Soares MD LAB - MICROBIOLOGY ORDERABLES [facility] MICROBIOLOGY [address] [place] [address], [facility] [phone] * US ABDOMEN LIMITED (05/13/2018 9:15 AM [...] Sacroiliac Joint Injection Under Fluoroscopy Blanca Nam [id number] 01/27/2018 Allergies Allergen Reactions Keflex [Cephalexin] Swelling [...] denies complaints, DC to home. Procedure codes: 75925 Adan Umana MD Adan Umana MD DIAGNOSTIC IMAGING O RDERABLES * XR SACROILIAC JOINTS 3+ VW (07/19/2015 3:46 PM FRUIT GRADER OPERATOR) Anatomical Region Laterality Modality Pelvis, Lower Extremity [facility] 07/19/2015 3:52 PM FRUIT GRADER OPERATOR Narrative 07/19/2015 4:28 PM FRUIT GRADER OPERATOR 3 VIEWS SACROILIAC JOINTS AP PELVIS SINGLE [...] HANDS BILATERAL 2 VIEWS (07/19/2015 3:46 PM FRUIT GRADER OPERATOR) Anatomical Region Laterality Modality Wrist / Hand, Upper Extremity Ra diographic Imaging 07/19/2015 3:52 PM FRUIT GRADER OPERATOR Narrative 07/19/2015 4:28 PM FRUIT GRADER OPERATOR 3 VIEWS SACROILIAC JOINTS AP PELVIS SINGLE [...] 1 OR 2 VW (07/19/2015 3:45 PM FRUIT GRADER OPERATOR) Anatomical Region Laterality Modality Pelvis Radiographic Kourtney ging 07/19/2015 3:52 PM FRUIT GRADER OPERATOR Narrative 07/19/2015 4:28 PM FRUIT GRADER OPERATOR 3 VIEWS SACROILIAC JOINTS AP PELVIS SINGLE [...] PM Shahriar Cook MD DIAGNOSTIC IMAGING O [facility] Care Teams Installers Mechanical Relationship Specialty Start Date End Date Akin Coyne MD [address] [place] [id number] PCP - General Family Medicine 07/19/15 [place] [address] [address] Physical Medicine and Rehabilitation 01/23/18
--- OUTSIDE RECORDS SUMMARY | 2024-11-10 16:52 | XMS_ITS | Clinical Summary ---
Author Organization Unknown Care Team Providers Care Search Analyst Name Role Phone IGGY BOOKER, ASHLEY Unavailable Unavailabl e JOSHUA PT, BETSY Unavailable Unavailable MARCELO OT, ABNER Unavailable Unavailable CHELA SWITCH REPAIRER, DENVER Unavailable Unavailabl e LUPCHO KANU/TAMAYO, OSBALDO Unavailable Unavaila mariana RIGGS, KYLE Unavailable Unavailable Payers Payer Name Policy Type Policy Number Effective Date Expira tion Date MEDICARE.[facility] [id number] Problems Condition Name Condition Details Condition Category [...] CIGARETTES, UNCOMPLICATE D Active 09-16 00:00: 00 DRAFTER LANDSCAPE (CURRENT) USE OF ANTITHROMBOT ICS/ANTIPLAT ELETS Active 09-16 00:00: 00 PRSNL HX OF TIA (TIA), 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 09-16 00:00: 00 HISTORY OF FALLING Active 09-16 00:00: 00 DRAFTER LANDSCAPE (CURRENT) USE OF ORAL HYPOGLYCEMIC DRUGS Active [...] 0-11 00:00: 00 09-14 23:59 :00 No [id number] NEEDED FOR ANXIETY 1 tablet DAILY 1 tablet DAILY (route: oral) Med Classific ation: Central Nervous System Agents pantoprazol e 40 mg tablet,michael yed release 8-02 00:00: 00 09-14 23:59 :00 No [id number] STOMACH 1 tablet DAILY 1 tablet DAILY (route: oral) Med Classific ation: Gastroint estinal Therapy Agents azathioprin e 50 mg tablet 2020-09 0-07 00:00: 00 09-14 23:59 :00 No [id number] ORGAN REJECTION, PAIN 2 tablet DAILY 2 tablet DAILY (route: oral) Med Classific ation: Immunosup pressive Agents amlodipine 5 mg tablet 9-21 00:00: 00 09-14 23:59 :00 No [id number] HTN 1 tablet DAILY 1 tablet DAILY (route: oral) Med Classific ation: Cardiovas cular Therapy Agents trazodone 50 mg tablet 1-14 00:00: 00 09-14 23:59 :00 No [id number] DEPRESSION 2 tablet BEDTIME 2 tablet BEDTIME (route: oral) Med Classific ation: Central Nervous System Agents metoprolol succinate ER 100 mg tablet,exte nded release 24 hr 8-11 00:00: 00 09-14 23:59 :00 No [id number] HTN 1 tablet DAILY 1 tablet DAILY (route: oral) Med Classific ation: Cardiovas cular Therapy Agents gabapentin 300 mg capsule 9-04 00:00: 00 09-14 23:59 :00 No [id number] PAIN 1 capsule 3 TIMES DAILY 1 capsule 3 TIMES DAILY (route: oral) Med Classific ation: Central Nervous System Agents tizanidine 2 mg tablet 9-15 00:00: 00 09-14 23:59 :00 No [id number] MUSCLE SPASM 1 tablet BEDTIME 1 tablet BEDTIME (route: oral) Med Classific ation: Locomotor System gabapentin 300 mg capsule 2020-09 0-06 00:00: 00 07-18 00:00 :00 No [id number] Per instruc tions Per instructio ns (route: oral) Med Classific ation: Central Nervous System Agents lamotrigine 100 mg tablet 9-04 00:00: 00 09-14 23:59 :00 No [id number] SEIZURE 1 tablet 2 TIMES DAILY 1 tablet 2 TIMES DAILY (route: oral) Med Classific ation: Central Nervous System Agents duloxetine 60 mg capsule,del ayed release 9-04 00:00: 00 09-14 23:59 :00 No [id number] MOOD, DEPRESSION 2 capsule DAILY 2 capsule DAILY (route: oral) Med Classific ation: Central Nervous System Agents methylpredn isolone 4 mg tablets in a dose pack 2020-09 0-31 00:00: 00 07-18 00:00 :00 No [id number] Per instruc tions Per instructio ns (route: oral) Med Classific ation: Endocrine BD Tuberculin Syringe 1 mL 25 gauge x 5/8 9-09 00:00: 00 07-18 00:00 :00 No [id number] Per instruc tions Per instructio ns (route: miscellane ous) Med Classific ation: Medical Supplies and Durable Medical Equipment (DME) albuterol sulfate 1.25 mg/3 mL solution for nebulizatio n 2020-09 00:00: 00 09-29 23:59 :00 No [id number] NEEDED FOR SOB 3 mL DAILY 3 mL DAILY (route: inhalation ) Med Classific ation: Respirato ry Therapy Agents Aspirin Low Dose 81 mg tablet,michael yed release 2020-09 00:00: 00 09-14 23:59 :00 No [id number] BLOOD THINNER 1 tablet DAILY 1 tablet DAILY (route: oral) Med Classific ation: Hematolog ical Agents biotin 5,000 mcg disintegrat ing tablet 2020-09 00:00: 00 09-14 23:59 :00 No [id number] SUPPLEMENT 1 tablet DAILY 1 tablet DAILY (route: oral) Med Classific ation: Electroly te Balance-N utritiona l Products Centrum Silver 0.4 mg-300 mcg-250 mcg tablet 2020-09 00:00: 00 09-14 23:59 :00 No [id number] SUPPLEMENT 1 tablet DAILY 1 tablet DAILY (route: oral) Med Classific ation: Electroly te Balance-N utritiona l Products Cosentyx 150 mg/mL subcutaneou s syringe 2020-09 00:00: 00 09-14 23:59 :00 No [id number] ARTHRITIS 150 mg DIRECTED 150 mg DIRECTED (route: subcutaneo us) Med Classific ation: Dermatolo gical metformin 500 mg tablet 2020-09 00:00: 00 09-14 23:59 :00 No [id number] DIABETES MELLITUS 1 tablet DAILY 1 tablet DAILY (route: oral) Med Classific ation: Endocrine methylpredn isolone 4 mg tablets in a dose pack 2020-09 00:00: 07-22 23:59 :00 No [id number] ARTHRITIS Per instruc tions DIRECTED Per instructio ns DIRECTED (route: oral) Med Classific ation: Endocrine PreserVisio n AREDS-2 250 mg-90 mg-40 mg-1 mg capsule 2020-09 00:00: 00 09-14 23:59 :00 No [id number] SUPPLEMENT 1 capsule DAILY 1 capsule DAILY (route: oral) Med Classific ation: Alternati ve Therapy Tylenol Extra Strength 500 mg tablet 2020-09 00:00: 00 09-14 23:59 :00 No [id number] PAIN 2 tablet 3 TIMES DAILY 2 tablet 3 TIMES DAILY (route: oral) Med Classific ation: Analgesic , Anti-infl ammatory or Antipyret ic Vitamin D3 50 mcg (2,000 unit) capsule 2020-09 00:00: 00 09-14 23:59 :00 No [id number] SUPPLEMENT 1 capsule DAILY 1 capsule DAILY (route: oral) Med Classific ation: Electroly te Balance-N utritiona l Products Methylpred DP 4 mg tablets in a dose pack 2020-09 00:00: 00 09-29 23:59 :00 No [id number] TO REDUCE SYMPTOMS SUCH PAIN AND SWELLING 4 mg BEFORE MEALS 4 mg BEFORE MEALS (route: oral) Med Classific ation: Endocrine docusate sodium 100 mg capsule 09-22 00:00: 00 09-14 23:59 :00 No [id number] CONSTIPATIO N 1 capsule 2 TIMES DAILY 1 capsule 2 TIMES DAILY (route: oral) Med Classific ation: Gastroint estinal Therapy Agents Flonase Allergy Relief 50 mcg/actuati on nasal spray,suspe nsion 09-22 00:00: 00 09-14 23:59 :00 No [id number] NASAL CONGESTION, ALLERGIES 2 spray 2 TIMES DAILY 2 spray 2 TIMES DAILY (route: nasal) Med Classific ation: Respirato ry Therapy Agents prednisone 10 mg tablet 09-22 00:00: 00 10-04 23:59 :00 No [id number] STEROID 2 tablet DAILY 2 tablet DAILY (route: oral) Med Classific ation: Endocrine Vitamin C 500 mg tablet 09-22 00:00: 00 09-14 23:59 :00 No [id number] VITAMIN C 1 tablet DAILY 1 tablet DAILY (route: oral) Med Classific ation: Electroly te Balance-N utritiona l Products albuterol sulfate HFA 90 mcg/actuati on aerosol inhaler 09-22 00:00: 00 09-14 23:59 :00 No [id number] SHORTNESS OF BREATH. 2 puff EVERY 4 HOURS 2 puff EVERY 4 HOURS (route: inhalation ) Med Classific ation: Respirato ry Therapy Agents amlodipine 5 mg tablet 09-18 00:00: 00 Yes [id number] BLOOD PRESSURE 1 tablet DAILY 1 tablet DAILY (route: oral) Med Classific ation: Cardiovas cular Therapy Agents atorvastati n 40 mg tablet 09-18 00:00: 00 Yes [id number] CHOLESTEROL 1 tablet DAILY 1 tablet DAILY (route: oral) Med Classific ation: Cardiovas cular Therapy Agents clopidogrel 75 mg tablet 09-18 00:00: 00 Yes [id number] BLOOD THINNER 1 tablet DAILY 1 tablet DAILY (route: oral) Med Classific ation: Hematolog ical Agents Cosentyx 300 mg/2 Syringes (150 mg/mL) subcutaneou s 09-18 00:00: 00 Yes [id number] RHEUMATOID ARTHRITIS 2 mL EVERY OTHER WEEK 2 mL EVERY OTHER WEEK (route: subcutaneo ) Med Classific ation: Dermatolo gical Cymbalta 60 mg capsule,del ayed release 09-18 00:00: 00 Yes [id number] ANXIETY 2 capsule DAILY 2 capsule DAILY (route: oral) Med Classific ation: Central Nervous System Agents folic acid 1 mg tablet 09-18 00:00: 00 Yes [id number] SUPPLEMENT 1 tablet DAILY 1 tablet DAILY (route: oral) Med Classific ation: Electroly te Balance-N utritiona l Products gabapentin 300 mg capsule 09-18 00:00: 00 Yes [id number] SEIZURE 2 capsule 2 TIMES DAILY 2 capsule 2 TIMES DAILY (route: oral) Med Classific ation: Central Nervous System Agents hydralazine 10 mg tablet 09-18 00:00: 00 Yes [id number] BLOOD PRESSURE 1 tablet 2 TIMES DAILY 1 tablet 2 TIMES DAILY (route: oral) Med Classific ation: Cardiovas cular Therapy Agents hydrocodone 5 mg-acetamin ophen 325 mg tablet 09-18 00:00: 00 Yes [id number] NEEDED FOR PAIN 1 tablet EVERY 6 HOURS 1 tablet EVERY 6 HOURS (route: oral) Med Classific ation: Analgesic , Anti-infl ammatory or Antipyret ic hydroxyzine HCl 25 mg tablet 09-18 00:00: 00 Yes [id number] ALLERGIES 1 tablet DAILY 1 tablet DAILY (route: oral) Med Classific ation: Central Nervous System Agents I-James 300 mcg-200 mg-27 mg-2 mg tablet 09-18 00:00: 00 Yes [id number] SUPPLEMENT 2 tablet DAILY 2 tablet DAILY (route: oral) Med Classific ation: Electroly te Balance-N utritiona l Products isosorbide mononitrate ER 30 mg tablet,exte nded release 24 hr 09-18 00:00: 00 Yes [id number] BLOOD PRESSURE 0.5 tablet DAILY 0.5 tablet DAILY (route: oral) Med Classific ation: Cardiovas cular Therapy Agents Jardiance 10 mg tablet 09-18 00:00: 00 Yes [id number] DIABETES 1 tablet DAILY 1 tablet DAILY (route: oral) Med Classific ation: Endocrine lamotrigine 25 mg tablet 09-18 00:00: 00 Yes [id number] SEIZURE 3 tablet 2 TIMES DAILY 3 tablet 2 TIMES DAILY (route: oral) Med Classific ation: Central Nervous System Agents losartan 100 mg tablet 09-18 00:00: 00 Yes [id number] BLOOD PRESSURE 1 tablet DAILY 1 tablet DAILY (route: oral) Med Classific ation: Cardiovas cular Therapy Agents metoprolol succinate ER 50 mg tablet,exte nded release 24 hr 09-18 00:00: 00 Yes [id number] BLOOD PRESSURE 1 tablet DAILY 1 tablet DAILY (route: oral) Med Classific ation: Cardiovas cular Therapy Agents primidone 50 mg tablet 09-18 00:00: 00 Yes [id number] SEIZURE 1 tablet DAILY 1 tablet DAILY (route: oral) Med Classific ation: Central Nervous System Agents trazodone 100 mg tablet 09-18 00:00: 00 Yes [id number] MOOD 1 tablet BEDTIME 1 tablet BEDTIME [...] TO EVALUATE, OBSERVE / ASSESS, AND MONITOR, SWITCH REPAIRER TO OBSERVE AND MONITOR, PROVIDE SKILLED THERAPEUTIC INTERVENTION, ACTIVITY, EDUCATION, AND TRAINING TO ADDRESS; [code = AGENCY MAY PERFORM A RESUMPTION OF CARE VISIT FOLLOWING ANY HOSPITAL ADMISSION. PT TO EVALUATE, OBSERVE / ASSESS, AND MONITOR, SWITCH REPAIRER TO OBSERVE AND MONITOR, PROVIDE SKILLED THERAPEUTIC INTERVENTION, ACTIVITY, EDUCATION, AND TRAINING TO ADDRESS;] Future Scheduled Test PT / SWITCH REPAIRER T O EDUCATE ON HYPERTENSION SELF-MANAGEMENT [code = PT / SWITCH REPAIRER TO EDUCATE ON HYPERTENSION SELF-MANAGEMENT] Future Scheduled Test PT / SWITCH REPAIRER T O EDUCATE ON COPD SELF-MANAGEMENT [code = PT / SWITCH REPAIRER TO EDUCATE ON COPD SELF-MANAGEMENT] Future Scheduled Test PT / SWITCH REPAIRER T O EDUCATE ON DIABETES SELF- MANAGEMENT [code = PT / SWITCH REPAIRER TO EDUCATE ON DIABETES SELF- MANAGEMENT] Future Scheduled Test PT TO ASSE SS / SWITCH REPAIRER TO MONITOR FOR AND REPORT EARLY SIGNS OF ANTICOAGULANT TOXICITY TO THE PHYSICIAN AND/OR THE RN CLINICAL MOTEL FOOD SERVICE SUPERVISOR FOR PHYSICIAN NOTIFICATION AND TO PROVIDE PATIENT/CAREGIVER EDUCATION ON ANTICOAGULANT THERAPY [code = PT TO ASSESS / SWITCH REPAIRER TO MONITOR FOR AND REPORT EARLY SIGNS OF ANTICOAGULANT TOXICITY TO THE PHYSICIAN AND/OR THE RN CLINICAL MOTEL FOOD SERVICE SUPERVISOR FOR PHYSICIAN NOTIFICATION AND TO PROVIDE PATIENT/CAREGIVER EDUCATION ON ANTICOAGULANT THERAPY] Future Scheduled Test PT TO ASSE SS / SWITCH REPAIRER TO MONITOR CARDIO/RESPIRATORY SYSTEM; AND NOTIFY THE PHYSICIAN AND/OR THE RN CLINICAL MOTEL FOOD SERVICE SUPERVISOR FOR PHYSICIAN NOTIFICATION FOR EARLY SIGNS AND SYMPTOMS OF EXACERBATION OR DETERIORATION. [code = PT TO ASSESS / SWITCH REPAIRER TO MONITOR CARDIO/RESPIRATORY SYSTEM; AND NOTIFY THE PHYSICIAN AND/OR THE RN CLINICAL MOTEL FOOD SERVICE SUPERVISOR FOR PHYSICIAN NOTIFICATION FOR EARLY SIGNS AND SYMPTOMS OF EXACERBATION OR DETERIORATION.] Future Scheduled Test PT / SWITCH REPAIRER T O MONITOR AND EDUCATE ON OXYGEN SATURATION DURING ADLS/IADLS, NOTIFY PHYSICIAN AND/OR THE RN CLINICAL MOTEL FOOD SERVICE SUPERVISOR FOR PHYSICIAN NOTIFICATION AND IF O2 SATS BELOW PHYSICIAN ORDERED PARAMETERS AFTER 10 MIN OF REST [code = PT / SWITCH REPAIRER TO MONITOR AND EDUCATE ON OXYGEN SATURATION DURING ADLS/IADLS, NOTIFY PHYSICIAN AND/OR THE RN CLINICAL MOTEL FOOD SERVICE SUPERVISOR FOR PHYSICIAN NOTIFICATION AND IF O2 SATS BELOW PHYSICIAN ORDERED PARAMETERS AFTER 10 MIN OF REST] Future Scheduled Test PT / SWITCH REPAIRER T O MONITOR FOR HYPO/HYPERGLYCEMIA AND CONDUCT ROUTINE FOOT INSPECTIONS. RECORD PATIENT REPORTED BLOOD SUGAR LEVELS AND NOTIFY PHYSICIAN AND/OR THE RN CLINICAL MOTEL FOOD SERVICE SUPERVISOR FOR PHYSICIAN NOTIFICATION IF BLOOD SUGAR LEVELS ARE OUTSIDE ORDERED PARAMETERS. TEACH PATIENT/CAREGIVER ON DAILY FOOT INSPECTIONS [code = PT / SWITCH REPAIRER TO MONITOR FOR HYPO/HYPERGLYCEMIA AND CONDUCT ROUTINE FOOT INSPECTIONS. RECORD PATIENT REPORTED BLOOD SUGAR LEVELS AND NOTIFY PHYSICIAN AND/OR THE RN CLINICAL MOTEL FOOD SERVICE SUPERVISOR FOR PHYSICIAN NOTIFICATION IF BLOOD SUGAR LEVELS ARE OUTSIDE ORDERED PARAMETERS. TEACH PATIENT/CAREGIVER ON DAILY FOOT INSPECTIONS] Future Scheduled Test PT / SWITCH REPAIRER T O INSTRUCT PATIENT/CAREGIVER ON RISK FOR HOSPITALIZATION/EMERGENCY ROOM VISITS, TEACH SIGNS AND SYMPTOMS THAT PUT PATIENT AT RISK, WHEN TO NOTIFY NURSE/PHYSICIAN OF COMPLICATIONS/DECLINE, AND WHEN TO CALL 911. [code = PT / SWITCH REPAIRER TO INSTRUCT PATIENT/CAREGIVER ON RISK FOR HOSPITALIZATION/EMERGENCY ROOM VISITS, TEACH SIGNS AND SYMPTOMS THAT PUT PATIENT AT RISK, WHEN TO NOTIFY NURSE/PHYSICIAN OF COMPLICATIONS/DECLINE, AND WHEN TO CALL 911.] Future Scheduled Test OCCUPATION AL THERAPIST TO EVALUATE FOR ADL RETRAINING [code = OCCUPATIONAL THERAPIST TO EVALUATE FOR ADL RETRAINING ] Future Scheduled Test PT/SWITCH REPAIRER TO IDENTIFY FALL RISK FACTORS; EDUCATE THE PATIENT/CAREGIVER ON WAYS TO REDUCE FALL RISK FACTORS AND ESTABLISH HOME EXERCISE PROGRAM TO MINIMIZE FALL RISK. MAY TEACH THE PATIENT FLOOR RECOVERY WHEN CLINICALLY APPROPRIATE [code = PT/SWITCH REPAIRER TO IDENTIFY FALL RISK FACTORS; EDUCATE THE PATIENT/CAREGIVER ON WAYS TO REDUCE FALL RISK FACTORS AND ESTABLISH HOME EXERCISE PROGRAM TO MINIMIZE FALL RISK. MAY TEACH THE PATIENT FLOOR RECOVERY WHEN CLINICALLY APPROPRIATE] Future Scheduled Test PT / SWITCH REPAIRER M AY EDUCATE ON PAIN MANAGEMENT CLINICALLY INDICATED, INCLUDING NON-PHARMACOLOGICAL PAIN REDUCTION TECHNIQUES. [code = PT / SWITCH REPAIRER MAY EDUCATE ON PAIN MANAGEMENT CLINICALLY INDICATED, INCLUDING NON-PHARMACOLOGICAL PAIN REDUCTION TECHNIQUES. ] Future Scheduled Test SIT TO/FRO M STAND TRANSFERS (PT/SWITCH REPAIRER) [code = SIT TO/FROM STAND TRANSFERS (PT/SWITCH REPAIRER)] Future Scheduled Test PT/SWITCH REPAIRER TO PROVIDE GAIT TRAINING FOR IMPROVED MOBILITY AND /OR TO NORMALIZE GAIT PATTERN [code = PT/SWITCH REPAIRER TO PROVIDE GAIT TRAINING FOR IMPROVED MOBILITY AND /OR TO NORMALIZE GAIT PATTERN] Future Scheduled Test NEUROMUSCU LAR RE-EDUCATION / BALANCE / POSTURAL CONTROL (PT) [code = NEUROMUSCULAR RE-EDUCATION / BALANCE / POSTURAL CONTROL (PT)] Future Scheduled Test THERAPEUTI C EXERCISES AND ESTABLISHING A HOME EXERCISE PROGRAM (PT/SWITCH REPAIRER) [code = THERAPEUTIC EXERCISES AND ESTABLISHING A HOME EXERCISE PROGRAM (PT/SWITCH REPAIRER)] Goal Patient Goal - TO WALK Goal [...] End Date/Time Encounter Type Admission Type Attending [facility] Care Facility Care Department Encounter ID Discharge Date Discharge Status Discharge Condition Discharge Reason Percent Goals Met 2024-09-18 00:00:00 2024-11-16 00:00:00 Outpatient BETSY REID [facility] [id number]
--- OUTSIDE RECORDS SUMMARY | 2024-11-10 16:52 | XMS_ITS | Clinical Summary ---
Author Organization [facility] Address [address] [place] [address] Phone Care Team Providers Care Meatcutter Name Role Phone Gagan Coyne MD Primary Care Provider [phone] Allergies Active Allergy Reactions Criticality Noted Date [...] Behavioral Health Behavioral Health Yes Carmina Gao, MASTER [employer] Note: I want to be happier, want to live more, don't want my depression to [place] [id number] MEDICARE [facility] Care Teams Meatcutter Relationship Specialty Start Date End Date Gagan Coyne MD [address] [place] [address] PCP - General Family Medicine 01/16/20
--- OUTSIDE RECORDS SUMMARY | 2024-11-10 16:52 | XMS_ITS | Referral Summary ---
Author Organization [facility] [employer] Address [address] [place] [address] Care Team Providers Care Picking Machine Operator Helper Name Role Phone Akin Coyne MD Primary Care Provider [phone] Adan Umana MD Unavailable [phone] Source Comments [facility] [employer],non-owned Affiliates and Associated Physician Practices is amultiple site organization consisting of ambulatory clinics and hospital sitesin [place], [place], [place] and [place]. This disclosure is being madepursuant to the Care Everywhere program and may not contain all information available regarding this patient. Last updated 18.[facility] [employer] Allergies Active Allergy Reactions Criticality Noted Date [...] every 12 hours 08/12/2023 Active HYDROcodone-acetam inophen ([place]) 5-325 MG tablet Take 1 (one) tablet [...] of Treatment Not on file Care Teams Picking Machine Operator Helper Relationship Specialty Start Date End Date Akin Cyone MD [address] [place] [address] PCP - General Family Medicine 07/19/15 [place] [address] [place] [address] [place] [address] Physical Medicine and Rehabilitation 01/23/18
--- OUTSIDE RECORDS SUMMARY | 2024-11-10 16:52 | XMS_ITS | Clinical Summary ---
Author Organization [facility] [employer] Address [address] [place] [address] Care Team Providers Care Flat Surfacer Name Role Phone Akin Coyne MD Primary Care Provider [phone] Adan Umana MD Unavailable [phone] Source Comments [facility] [employer],non-owned Affiliates and Associated Physician Practices is amultiple site organization consisting of ambulatory clinics and hospital sitesin [place], [place], [place] and [place]. This disclosure is being madepursuant to the Care Everywhere program and may not contain all information available regarding this patient. Last updated 18.[facility] [employer] Allergies Active Allergy Reactions Criticality Noted Date [...] every 12 hours 08/12/2023 Active HYDROcodone-acetam inophen ([place]) 5-325 MG tablet Take 1 (one) tablet [...] age to complete this topic Care Teams Flat Surfacer Relationship Specialty Start Date End Date Akin Coyne MD [address] [place] [address] PCP - General Family Medicine 07/19/15 [place] [address] [address] Physical Medicine and Rehabilitation 01/23/18
--- OUTSIDE RECORDS SUMMARY | 2024-11-10 16:52 | XMS_ITS | Clinical Summary ---
Author Organization [facility] Address [address] [place] [address] Care Team Providers Care Straightedge Machine Operator Helper Name Role Phone Unavailable Primary Care [...]
[2024-11-10 17:02] LABS: NT Pro B Type Natriuretic Pept 1160 pg/mL (19.9-100); Troponin I < 0.012 ng/mL (0.000-0.034)
[2024-11-10 17:05] LABS: Add Urine Microscopic? NO; Appearance Urine Clear (Clear); Bilirubin Urine Negative (Negative); Blood Urine Negative (Negative); Color Urine Yellow (Yellow); Glucose Urine UA Negative (Negative); Ketones Urine Negative (Negative); Leukocyte Esterase Ur Negative LEU/UL (Negative); Nitrate Urine Negative (Negative); Protein Urine Negative (Negative); Specific Grav Ur 1.013 (1.001-1.035); Urobilinogen Urine 0.2 mg/dL (<2.0); pH Urine 6.5 (5.0-9.0)
[2024-11-10] MEDS: MORPHINE SULFATE (*CRX) 4 MG/ML INJ 2 MG IV PUSH (18:02)
[2024-11-10 18:46] LABS: Hematocrit 21.6 % (37.0-47.0)
[2024-11-10 18:49] LABS: Hemoglobin 6.3 g/dL (12.0-15.0)
--- NOTE | 2024-11-10 19:40 | PM.IMHP ---
H&P: HPI History of Present Illness Date/Time: 11/10/24 19:40 Chief Complaint: Fall Narrative: 78 y/o F presents here with a ground level fall with PMH of osteoporosis, seronegative rheumatoid arthritis, diabetes, KIANNA not on CPAP, hypertension, anxiety/depression, anemia, emphysema, seizures, GERD, psoriasis, B12 deficiency, and hyperlipidemia. The patient presents here from patient's daughter's home via EMS for further evaluation after a fall this morning. She reports at 1:00 a.m. she had a ground level fall. She believes she must have been walking to the restroom when fall occurred, she is unsure if the fall was mechanical versus syncopal. She reports left chest wall tenderness post fall. No further complaints. She was found by her this morning. During her ED workup, she was found to be anemic with a hemoglobin of 6.2. She is currently on a daily aspirin and Plavix, no further anticoagulation or antiplatelets. She reports fatigue, off balance, and more cold in the last few weeks. She denies dark tarry stools or bright red blood per rectum. She has a history of anemia secondary to B12 deficiency. Initial VS at presentation: 98.5? F, HR 68, R 18, 161/73, and 96% on RA. ED workup showed: Hemoglobin 6.2, no leukocytosis, potassium 3.3, creatinine 0.48 and GFR >60, initial troponin negative, BNP 1160, and UA was unremarkable. EKG showed LVH with ST-T change and baseline artifact, when compared to previous there are no significant changes. Head CT showed no acute intracranial hemorrhage or suspicious mass effect. C-spine CT showed no fractures and severe cervical spondylosis. Chest CT showed no acute findings within the chest. CT of the abdomen/pelvis showed possible cystitis, otherwise no acute abdominal pelvic process detected. Review of Systems Review of Systems: All systems reviewed & are unremarkable except as noted in HPI and below PMFSH Past Medical History Medical History Insomnia Bipolar disorder CKD (chronic kidney disease) Dysphagia S/p esophageal dilation Asthma Neuropathy History of CVA (cerebrovascular accident) Ankylosing spondylitis of multiple sites in spine Seronegative rheumatoid arthritis of multiple sites patient of Dr. Shahriar Cook Gastro-esophageal reflux disease without esophagitis MDD (major depressive disorder) Anxiety Mixed hyperlipidemia Hemorrhoids Anemia Hallucinations Chronic pain Osteoporosis Type 2 diabetes mellitus Tobacco abuse Macular degeneration Obstructive sleep apnea History of basal cell carcinoma (BCC) Hypertension Shingles Fatty liver Bronchitis Anal fissure Peripheral neuropathy Seizures (1973) B12 deficiency Psoriasis Diverticulitis Surgical History Surgical History History of benign breast biopsy History of appendectomy History of cataract extraction with lens replacement History of tubal ligation History of dilatation and curettage History of section History of sinus surgery History of lumbar laminectomy Status post anal fissurectomy History of colonoscopy History of carpal tunnel release Family History Family History Mother Hypertension, Onset Age: 97 Father Family history of malignant neoplasm Family history of lung cancer, Onset Age: 94 Colon cancer Sibling Family history of blood dyscrasia Other Family history of arthritis Family history of seizure disorder No family history of cardiovascular disease No family history of diabetes mellitus No family history of hypertension Prediabetes Social History Social History Social History: Surrogate medical decision maker: Misha Nam, spouse. Code status: Long discussion about options and the patient wishes to be DNR Smoking packs per day: 1 Smoking cigarettes per day: 20.0 Years smoked: 64 Smoking pack-years: 64.00 Smoking status: Current every day smoker Tobacco type: cigarettes Second hand tobacco smoke exposure: Yes Additional smoking assessment comments: 1-1.5 ppd for 59 years Alcohol intake: current Drinks per week: 5 Alcohol use details: beer-occasionally Substance use: never Do You Feel Safe in your Home?: Yes Lack of Transportation: No Lack of Food: Never True Current Housing: I Have Housing Concerned About Future Housing: No Difficulty Paying Gas/Electric Bills: No Difficulty Paying for Meds: No Currently Unemployed: No Education: Master's Degree or Higher Difficulty w/ Childcare or Family Care: No Living arrangements: with family Additional living arrangements comments: Lives with in [place]. Gender identity (if verbalized by the patient): Female Sexual Orientation (if Verbalized by the Patient): Straight or Heterosexual Spiritual care concerns: No Meds Home Medications and Allergies Home Medications ?Medication ?Instructions ?Recorded ?Confirmed ?Type lamotrigine 25 mg tablet 75 mg PO BID 10/10/23 11/10/24 History metoprolol succinate 50 mg 50 mg PO DAILY 10/10/23 11/10/24 History tablet,extended release 24 hr primidone 50 mg tablet 50 mg PO DAILY 10/10/23 11/10/24 History pantoprazole 40 mg tablet,delayed 40 mg PO DAILY 06/30/24 11/10/24 History release Atorvastatin [Lipitor] 40 mg PO DAILY #30 tab-caps 07/03/24 11/10/24 Rx acetaminophen 500 mg tablet 500 mg PO BID PRN pain #30 tabs 07/15/24 11/10/24 Rx docusate sodium 100 mg capsule 100 mg PO BID #60 caps 07/15/24 11/10/24 Rx folic acid 1 mg tablet 1 mg PO DAILY #30 tabs 07/15/24 11/10/24 Rx gabapentin 300 mg capsule 600 mg (2 x 300 mg) PO BID #270 07/15/24 11/10/24 Rx caps losartan 100 mg tablet 100 mg PO DAILY #90 tabs 07/16/24 11/10/24 Rx isosorbide mononitrate 30 mg 15 mg (1/2 x 30 mg) PO DAILY #30 07/20/24 11/10/24 Rx tablet,extended release 24 hr tabs secukinumab 150 mg/mL subcutaneous 300 mg subcut [id number] 07/30/24 11/10/24 History pen injector (Cosentyx Pen) tramadol 50 mg tablet 50 mg PO Q6H PRN pain #20 tabs 08/06/24 11/10/24 Rx clopidogrel 75 mg tablet 75 mg PO DAILY 08/12/24 11/10/24 History duloxetine 60 mg capsule,delayed 120 mg PO DAILY 08/12/24 11/10/24 History release hydroxyzine HCl 25 mg tablet 25 mg PO DAILY 08/12/24 11/10/24 History vit A 300 mcg-C 200 mg-E 27 2 tablet PO DAILY 08/12/24 11/10/24 History mg-lutein 2 mg and minerals tablet (Ocuvite with Lutein) trazodone 50 mg tablet 100 mg (2 x 50 mg) PO HS #180 tabs 09/17/24 11/10/24 Rx lorazepam 0.5 mg tablet 0.5 mg PO TID PRN anxiety #90 tabs 10/05/24 11/10/24 Rx hydrocodone 5 mg-acetaminophen 325 1 tablet PO QHS PRN pain #14 tabs 10/30/24 11/10/24 Rx mg tablet amlodipine 5 mg tablet (Norvasc) 5 mg PO HS 11/10/24 11/10/24 History hydralazine 25 mg tablet 25 mg PO Q12H 11/10/24 11/10/24 History pregabalin 50 mg capsule 50 mg PO Q8H 11/10/24 11/10/24 History Allergies Allergy/AdvReac Type Severity Reaction Status Date / Time cephalexin Allergy Severe Anaphylaxis Verified 11/10/24 12:55 Vital Signs Vital Signs - 24 hr 11/10/24 13:02 11/10/24 16:38 11/10/24 16:46 Temperature 98.5 F Pulse Rate 68 Respiratory Rate 18 Blood Pressure 161/73 H 163/60 H 164/84 H Pulse Oximetry 96 94 95 Oxygen Delivery Room Air 11/10/24 18:04 Temperature Pulse Rate 87 Respiratory Rate 15 Blood Pressure 174/65 H Pulse Oximetry 93 Oxygen Delivery Exam Const: General: comfortable and no acute distress Other: , female, nontoxic appearance, elderly HENMT: Face/Nose/Sinus: Normal nares present Mouth: Yes moist mucous membranes Eyes: General: appearance normal, both eyes and all related structures Sclera: sclerae normal Pupils: Equal, round and reactive pupils present EOM: EOMs intact bilaterally Resp: Effort & Inspection: normal respiratory effort Auscultation: clear to auscultation bilaterally Cardio: Rate: regular rate Rhythm: regular rhythm Other: S1-S2 present without murmur, rub, ectopy GI: Other: Abdomen soft, nondistended, nontender. Normoactive bowel sounds in all quadrants. Skin: General skin exam: normal color and no rashes or lesions noted Wounds: no wounds Neuro: Speech: normal speech Motor exam (neuro): 5/5 motor strength present throughout Sensory Exam: normal sensation Other: A&O x4 Extrem: General: normal to inspection Psych: Mental Status: mental status grossly normal Affect: normal affect Other: Good insight and judgment, pleasant H&P: Results Labs Labs: Short CBC 11/10/24 11/10/24 Range/Units 16:31 18:42 WBC 7.4 (4.5-10.0) K/mm3 Hgb 6.2 L* 6.3 L* (12.0-15.0) g/dL Hct 21.3 L 21.6 L (37.0-47.0) % Plt Count 307 (150-375) k/mm3 BMP 11/10/24 16:31 Sodium 138 Potassium 3.3 L Chloride 103 Carbon Dioxide 28 BUN 7 Creatinine 0.48 L Glucose 121 H Calcium 8.8 Cardiac Enzymes 11/10/24 Range/Units 16:31 Troponin I < 0.012 (0.000-0.034) ng/mL Liver Function 11/10/24 Range/Units 16:31 Total Bilirubin 0.3 (0.2-1.3) mg/dL AST 15 (14-36) U/L ALT 11 (6-35) U/L Alkaline Phosphatase 129 H (38-126) U/L Albumin 3.6 (3.5-5.1) g/dL Urine 11/10/24 Range/Units 16:54 Urine Color Yellow (Yellow) Urine Appearance Clear (Clear) Urine pH 6.5 (5.0-9.0) Ur Specific [place] 1.013 (1.001-1.035) Urine Protein Negative (Negative) mg/dL Urine Glucose (UA) Negative (Negative) mg/dL Assessment and Plan Assessment and plan (1) Anemia: Qualifiers: Anemia type: unspecified type Qualified Code(s): D64.9 - Anemia, unspecified Code(s): D64.9 - Anemia, unspecified Status: Acute Assessment and Plan: - Hgb 6.2 - Hx of anemia in the setting of B12 deficiency, will continue supplement - add iron, TIBC, ferritin, B12, folic acid, and TSH - transfuse 2 PRBC, recheck H&H post transfusion - transfuse if <7 - trend H&H - stool occult/MAYI negative (2) Frequent falls: Code(s): R29.6 - Repeated falls Status: Acute Assessment and Plan: - reporting increase in falls over the last few weeks and has developed confusion at nights - trauma workup negative for acute fracture/injury - acute on chronic anemia per lab work, see above - fall precautions - PT/OT and care coordination consulted for d/c planning after shared decision making with the patient and her daughter, has recently required multiple rehab stays (3) Type 2 diabetes mellitus: Qualifiers: Diabetes mellitus complication status: without complication Diabetes mellitus continuous churn buttermaker insulin use: without [facility] use Qualified Code(s): E11.9 - Type 2 diabetes mellitus without complications Code(s): E11.9 - Type 2 diabetes mellitus without complications Status: Chronic Assessment and Plan: - initial glucose 133 - hypoglycemia protocol - POC blood glucose ACHS - no current home medications - correct regimen ordered - moderate dose TIDWM, based off BMI - A1C 9.3% on 06/30/2024, update (4) Hypertension: Qualifiers: Hypertension type: essential hypertension Qualified Code(s): I10 - Essential (primary) hypertension Code(s): I10 - Essential (primary) hypertension Status: Chronic Assessment and Plan: - chronic, currently 174/65 - continue home medications: Metoprolol, losartan, Imdur, hydralazine, amlodipine - monitor Plan Diet: Heart healthy GI Prophylaxis: Not currently indicated DVT Prophylaxis: SCDs Lines: Peripheral Code Status: Full code Quality VTE Prophylaxis VTE prophylaxis: mechanical ordered If No VTE Prophylaxis Answer both mechanical and pharmacologic: Reason no pharmacologic proph: medical contraindication Hospitalist MIPS Advance Care Plan I have confirmed that the patient's Advanced Care Plan is present, code status is documented, or surrogate decision maker is listed in patient medical record.: Yes Medication Reconciliation I have utilized all available resources to obtain, update and review the patients current medications (includes all prescriptions, OTC, herbals, cannabis, and nutritional supplements).: Yes
[2024-11-10] MEDS: SODIUM CHLORIDE 0.9% IV 250 ML 30 ML IV CONT (21:16)
[2024-11-10 21:27] LABS: Glucose Point of Care 133 mg/dl (65-105)
--- NOTE | 2024-11-10 21:42 | ADMGEN ---
This patient, Blanca Nam, was admitted to [facility] Surg Room 321-. Patient/family oriented to hospital policies and general routines including ID bracelet, bed and alarms, visiting hours, pain management, procedures, bathroom and other care routines, personal items, smoking policy, room service/diet, and visiting hours. Information on how to activate the Rapid Response Team has been discussed. Patient/Family are encouraged to report perceived risks to care and to ask questions if they do not understand what they are told or what they should do.
[2024-11-10] MEDS: hydrALAZINE HCL 25 MG TABLET PO (23:42)
[2024-11-10] MEDS: traZODone HCL 50 MG TABLET 100 MG PO (23:42)
[2024-11-10] MEDS: amLODIPine BESYLATE 5 MG TABLET PO (23:42)
[2024-11-10] MEDS: lamoTRIgine 25 MG TABLET 75 MG PO (23:42)
[2024-11-10] MEDS: GABAPENTIN 300 MG CAPSULE 600 MG PO (23:43)
[2024-11-10] MEDS: PREGABALIN (*CRX) 50 MG CAPSULE PO (23:43)
[2024-11-10] MEDS: POTASSIUM CHLORIDE 20 MEQ ER TABLET 40 MEQ PO (23:44)
[2024-11-10 23:51] LABS: Iron 22 ug/dL (37-170)
[2024-11-10] MEDS: HYDROcodone/acetaminophen (*CRX) 5-325 MG TABLET 1 TAB PO (23:58)
[2024-11-11] VITALS (15 sets, daily range): BP systolic 146–165; BP diastolic 46–75; PULSE 60–90; RESP 14–20; TEMP 36.3–37.4; O2SAT 91–96
[2024-11-11] LABS: Percent Iron Saturation 6 % (20-50)
[2024-11-11 01:00] LABS: Folic Acid > 20.0 ng/mL (2.76->20)
[2024-11-11] MEDS: PREGABALIN (*CRX) 50 MG CAPSULE PO ×3 (05:36→21:22)
[2024-11-11 07:21] LABS: Basophils Percent Auto 0.3 % (0.2-1.2); Eosinophils Absolute Auto 0.1 K/mm3 (0-0.3); Eosinophils Percent Auto 1.9 % (0-4.4); Hematocrit 31.2 % (37.0-47.0); Hemoglobin 9.7 g/dL (12.0-15.0); Immature Granulocyte Absolute 0.02 K/mm3 (0.00-0.031); Immature Granulocyte Percent A 0.3 % (0-0.5); Lymphocytes Absolute Auto 1.55 K/mm3 (0.9-3.2); Lymphocytes Percent Auto 24.8 % (18.3-44.2); Mean Corpuscular HGB Conc 31.1 g/dl (32-36); Mean Corpuscular Hemoglobin 23.8 pg (26-34); Mean Corpuscular Volume 76.5 fl (80-100); Mean Platelet Volume 9.4 fl (7.4-10.4); Monocytes Absolute Auto 0.6 K/mm3 (0.1-0.6); Monocytes Percent Auto 9.5 % (2.6-8.5); Neutrophils Absolute Auto 3.9 K/mm3 (1.3-6.7); Neutrophils Percent Auto 63.2 % (45.5-73.1); Platelet Count Result 307 k/mm3 (150-375); Red Blood Count 4.08 M/mm3 (4.2-5.4); Red Cell Distribution Width 18.6 % (11.5-14.5); White Blood Count 6.2 K/mm3 (4.5-10.0)
[2024-11-11 07:29] LABS: Hemoglobin A1C 5.7 % (<5.7)
[2024-11-11 07:49] LABS: Alanine Aminotransferase 10 U/L (6-35); Albumin Level 3.6 g/dL (3.5-5.1); Alkaline Phosphatase 137 U/L (38-126); Anion Gap 7 mmol/L (4-12); Aspartate Amino Transferase 15 U/L (14-36); Bilirubin,Total 0.9 mg/dL (0.2-1.3); Blood Urea Nitrogen 4 mg/dL (7-17); Calcium 8.9 mg/dL (8.4-10.2); Carbon Dioxide 28 mmol/L (22-30); Chloride 106 mmol/L (98-107); Estimated CRCL calculation 76 ml/min; Estimated Glomerular Filt Rate > 60; Glucose 106 mg/dL (65-110); Potassium 3.9 mmol/L (3.4-5.0); Sodium 141 mmol/L (137-145)
[2024-11-11 08:13] LABS: Glucose Point of Care 116 mg/dl (65-105)
--- NOTE | 2024-11-11 08:29 | P.PNIM_ITS ---
Progress Note: A&P Assessment and Plan (1) Anemia: Qualifiers: Anemia type: unspecified type Qualified Code(s): D64.9 - Anemia, unspecified Code(s): D64.9 - Anemia, unspecified Status: Acute Assessment and Plan: - Hgb 6.2 - recieved 2 units PRBC - Hx of anemia in the setting of B12 deficiency, will continue supplement - monitor iron, TIBC, ferritin, B12, folic acid, and TSH - transfused 2 PRBC, recheck H&H post transfusion - transfuse if <7 - trend H&H - stool occult/MAYI negative --> hgb today 9.7 (2) Frequent falls: Code(s): R29.6 - Repeated falls Status: Acute Assessment and Plan: - reporting increase in falls over the last few weeks and has developed confusion at nights - trauma workup negative for acute fracture/injury - acute on chronic anemia per lab work, see above - fall precautions - PT/OT and care coordination consulted for d/c planning after shared decision making with the patient and her daughter, has recently required multiple rehab stays (3) Type 2 diabetes mellitus: Qualifiers: Diabetes mellitus complication status: without complication Diabetes mellitus retirement insulin use: without retirement use Qualified Code(s): E11.9 - Type 2 diabetes mellitus without complications Code(s): E11.9 - Type 2 diabetes mellitus without complications Status: Chronic Assessment and Plan: - initial glucose 133 - hypoglycemia protocol - POC blood glucose ACHS - no current home medications - correct regimen ordered - moderate dose TIDWM, based off BMI - A1C 9.3% on 06/30/2024, update (4) Hypertension: Qualifiers: Hypertension type: essential hypertension Qualified Code(s): I10 - Essential (primary) hypertension Code(s): I10 - Essential (primary) hypertension Status: Chronic Assessment and Plan: - chronic, currently 174/65 - continue home medications: Metoprolol, losartan, Imdur, hydralazine, amlodipine - monitor Plan Diet: Heart healthy GI Prophylaxis: Not currently indicated DVT Prophylaxis: SCDs Lines: Peripheral Code Status: Full code Time Spent With Patient Time with patient: Greater than 35 minutes (40 minutes) Subjective Date/time seen: 11/11/24 08:29 Interval history: 78 y/o F presents here with a ground level fall with PMH of osteoporosis, seronegative rheumatoid arthritis, diabetes, KIANNA not on CPAP, hypertension, anxiety/depression, anemia, emphysema, seizures, GERD, psoriasis, B12 defici ency, and hyperlipidemia. Patient received 2 units of packed red blood cells, she still complains of being very fatigued, she still reports being off balance. Working with discharge planning, on discharge. Patient denies any active chest pain, shortness a brother distress. Review of Systems Review of Systems: All systems reviewed & are unremarkable except as noted in HPI and below Constitutional: Constitutional: Reports as per HPI and Reports no additional constitutional complaints Eyes: Eyes: Reports as per HPI and Reports no additional eye complaints ENT: Reports system reviewed and no additional complaints, except as documented Cardiovascular: Cardiovascular: Reports no additional cardiovascular complaints Respiratory: Respiratory: Reports no additional respiratory complaints Gastrointestinal: Gastrointestinal: Reports no additional gastrointestinal complaints Musculoskeletal: Musculoskeletal: Reports no additional musculoskeletal complaints Neurologic: Reports system reviewed and no additional complaints, except as documented Psychiatric: Psychiatric: Reports no additional psychiatric complaints Endocrine: Endocrine: Reports no additional endocrine complaints Hematologic/Lymphatic: Hematologic/Lymphatic: Reports no additional hematologic/lymphatic complaints Exam Const: General: cooperative, comfortable and no acute distress Other: , female, nontoxic appearance, elderly HENMT: Head: normal to inspection and normocephalic Face/Nose/Sinus: Normal nares present Mouth: Yes moist mucous membranes Eyes: General: appearance normal, both eyes and all related structures Sclera: sclerae normal Pupils: Equal, round and reactive pupils present EOM: EOMs intact bilaterally Neck: Neck: normal visual inspection, full ROM and no lymphadenopathy Resp: Effort & Inspection: normal respiratory effort Auscultation: clear to auscultation bilaterally Cardio: Rate: regular rate Rhythm: regular rhythm Heart sounds: S1 normal heart sound present and S2 normal heart sound present Other: S1-S2 present without murmur, rub, ectopy GI: Inspection: normal to inspection GI Palp: Yes Soft to palpation Other: Abdomen soft, nondistended, nontender. Normoactive bowel sounds in all quadrants. Skin: General skin exam: normal color and no rashes or lesions noted Wounds: no wounds Neuro: General: oriented to person, oriented to place, oriented to time, tone normal and moves all extremities Cranial nerves: Yes Equal, round and reactive pupils present Speech: normal speech Motor exam (neuro): 5/5 motor strength present throughout Sensory Exam: normal sensation Other: A&O x4 Extrem: General: normal to inspection Psych: Appearance: grossly normal Mental Status: mental status grossly normal Affect: normal affect Other: Good insight and judgment, pleasant Objective Data Vital Signs Vital Signs: Vital Signs - 24 hr 11/10/24 13:02 11/10/24 16:38 11/10/24 16:46 Temperature 98.5 F Pulse Rate 68 Respiratory Rate 18 Blood Pressure 161/73 H 163/60 H 164/84 H Pulse Oximetry 96 94 95 Oxygen Delivery Room Air 11/10/24 18:04 11/10/24 18:31 11/10/24 19:01 Temperature Pulse Rate 87 Respiratory Rate 15 Blood Pressure 174/65 H 170/53 H 167/66 H Pulse Oximetry 93 94 95 Oxygen Delivery 11/10/24 19:31 11/10/24 20:00 11/10/24 21:15 Temperature Pulse Rate 79 Respiratory Rate 17 Blood Pressure 169/63 H 178/47 H Pulse Oximetry 96 94 Oxygen Delivery Room Air 11/10/24 21:23 11/10/24 21:24 11/10/24 21:40 Temperature 98 F 98 F 97.6 F Pulse Rate 87 87 83 Respiratory Rate 18 18 16 Blood Pressure 177/62 H 177/62 H 162/68 H Pulse Oximetry 95 95 94 Oxygen Delivery 11/10/24 22:40 11/10/24 23:40 11/11/24 00:00 Temperature 97.7 F 97.3 F L Pulse Rate 85 85 83 Respiratory Rate 16 16 Blood Pressure 171/62 H 180/76 H Pulse Oximetry 93 96 Oxygen Delivery 11/11/24 00:39 11/11/24 00:39 11/11/24 00:56 Temperature 98.5 F 97.4 F L 98.7 F Pulse Rate 87 90 87 Respiratory Rate 16 16 16 Blood Pressure 158/61 H 164/66 H 161/67 H Pulse Oximetry 94 94 95 Oxygen Delivery 11/11/24 01:16 11/11/24 02:18 11/11/24 03:18 Temperature 97.4 F L 98.6 F 97.3 F L Pulse Rate 90 86 84 Respiratory Rate 16 16 16 Blood Pressure 164/66 H 159/54 H 155/63 H Pulse Oximetry 94 93 94 Oxygen Delivery 11/11/24 04:00 11/11/24 04:10 11/11/24 05:37 Temperature 97.7 F 97.4 F L Pulse Rate 84 82 82 Respiratory Rate 16 18 Blood Pressure 165/72 H 159/75 H Pulse Oximetry 96 93 Oxygen Delivery Intake/Output Intake/Output: Intake & Output 11/08/24 11/09/24 11/10/24 11/11/24 23:59 23:59 23:59 23:59 Intake Total 0 1170 Output Total 300 1100 Balance -300 70 Meds/Results Medications: Active Medications Generic Name Dose Route Start Last Admin Trade Name Freq PRN Reason Stop Dose Admin Acetaminophen 500 mg 11/10/24 22:38 Acetaminophen 500 Mg Tablet PO BID PRN PAIN RATED 1-3 Hydrocodone Bitart/Acetaminophen 1 tab 11/10/24 18:23 11/10/24 23:58 Hydrocodone/Acetaminophen (*Crx) 5-325 Mg Tablet PO 1 tab Q4H PRN Administration Pain Rated 4-6 Amlodipine Besylate 5 mg 11/10/24 22:55 11/10/24 23:42 Amlodipine Besylate 5 Mg Tablet PO 5 mg HS DORYS Administration Atorvastatin Calcium 40 mg 11/11/24 09:00 Atorvastatin 40 Mg Tablet PO DAILY [facility] Clopidogrel Bisulfate 75 mg 11/11/24 09:00 Clopidogrel Bisulfate 75 Mg Tablet PO DAILY [facility] Dextrose 12.5 gm 11/10/24 19:57 Dextrose 50% 25 Gm/50 Ml Syringe IV PUSH PRN PRN Hypoglycemia Protocol Docusate Sodium 100 mg 11/11/24 09:00 Docusate Sodium 100 Mg Capsule PO BID [facility] Duloxetine HCl 120 mg 11/11/24 09:00 Duloxetine Hcl 60 Mg Capsule.Dr PO DAILY [facility] Folic Acid 1 mg 11/11/24 09:00 Folic Acid 1 Mg Tablet PO DAILY [facility] Gabapentin 600 mg 11/10/24 22:55 11/10/24 23:43 Gabapentin 300 Mg Capsule PO 600 mg BID [facility] Administration Glucagon 1 mg 11/10/24 19:57 Glucagon For Inj 1 Mg Vial IM PRN PRN Hypoglycemia Protocol Glucose 15 gm 11/10/24 19:57 Glucose Oral Gel 15 Gm Of Glucse In 37.5 Gm Tube PO PRN PRN Hypoglycemia Protocol Hydralazine HCl 25 mg 11/10/24 22:40 11/10/24 23:42 Hydralazine Hcl 25 Mg Tablet PO 25 mg Q12HR DORYS Administration Hydroxyzine HCl 25 mg 11/11/24 09:00 Hydroxyzine Hcl 25 Mg Tablet PO DAILY [facility] Dextrose 1,000 mls @ 100 mls/hr 11/10/24 19:57 Dextrose 5% 1,000 Ml IVPB PRN PRN Hypoglycemia Protocol Insulin Aspart 3 - 6 units 11/11/24 08:00 11/11/24 08:03 Insulin Aspart (*Bkc) 100 Units/Ml SUB-Q Not Given TIDWM [facility] Protocol Isosorbide Mononitrate 15 mg 11/11/24 09:00 Isosorbide Mononitrate 15 Mg Tab.Er.24h PO DAILY [facility] Lamotrigine 75 mg 11/10/24 22:55 11/10/24 23:42 Lamotrigine 25 Mg Tablet PO 75 mg BID [facility] Administration Lorazepam 0.5 mg 11/10/24 22:38 Lorazepam (*Crx) 0.5 Mg Tablet PO TID PRN anxiety Losartan Potassium 100 mg 11/11/24 09:00 Losartan Potassium 100 Mg Tablet PO DAILY [facility] Metoprolol Succinate 50 mg 11/11/24 09:00 Metoprolol Succinate Ext Rel 50 Mg Tabcr PO DAILY [facility] Miscellaneous Information 1 each 11/11/24 00:01 Hold Home Tramadol? Pt Has [place] For Pain Rated 4-6 XX 12/11/24 00:00 CLARIFY [facility] Multivitamins/Minerals 2 tablet 11/11/24 09:00 Opti-Gen Tab PO DAILY [facility] Ondansetron HCl 4 mg 11/10/24 18:23 Ondansetron Inj 4 Mg/2 Ml Vial IV PUSH Q4H PRN Nausea Pantoprazole Sodium 40 mg 11/11/24 09:00 Pantoprazole 40 Mg Tablet PO DAILY [facility] Pregabalin 50 mg 11/10/24 22:40 11/11/24 05:36 Pregabalin (*Crx) 50 Mg Capsule PO 50 mg Q8HR [facility] Administration Primidone 50 mg 11/11/24 09:00 Primidone 50 Mg Tablet PO DAILY [facility] Tramadol HCl 50 mg 11/10/24 22:38 Tramadol Hcl (*Crx) 50 Mg Tablet PO Q6H PRN pain Trazodone HCl 100 mg 11/10/24 22:55 11/10/24 23:42 Trazodone Hcl 50 Mg Tablet PO 100 mg HS [facility] Administration Radiology Results: ITS Impressions Head CT 11/10/24 13:37 Impression: No acute intracranial hemorrhage or suspicious mass effect. Cervical Spine CT 11/10/24 13:39 IMPRESSION: 1. No fracture 2. Severe cervical spondylosis. Chest CT 11/10/24 13:40 IMPRESSION: No acute findings within the chest, as detailed above. Abdomen/Pelvis CT 11/10/24 17:43 IMPRESSION: Possible cystitis. Otherwise no acute abdominopelvic process detected. Labs Labs: Laboratory Results - last 24 hr 11/10/24 11/10/24 11/10/24 16:31 16:54 18:42 WBC 7.4 RBC 2.88 L Hgb 6.2 L* 6.3 L* Hct 21.3 L 21.6 L MCV 74.0 L MCH 21.5 L MCHC 29.1 L RDW 17.5 H Plt Count 307 MPV 9.4 Immature Gran % (Auto) 0.4 Neut % (Auto) 62.7 Lymph % (Auto) 26.7 [place] % (Auto) 8.0 Eos % (Auto) 1.9 Baso % (Auto) 0.3 Lymph # (Auto) 1.97 [place] # (Auto) 0.6 Eos # (Auto) 0.1 Baso # (Auto) 0.0 Abs Immat Gran (auto) 0.03 Absolute Neuts (auto) 4.6 Absolute Nucleated RBC 0.000 Band Neutrophils % Not Reportable Nucleated RBC % 0.0 Platelet Estimate Adequate Hypochromasia 1+ Target Cells 1+ Ovalocytes 1+ Schistocytes None seen Sodium 138 Potassium 3.3 L Chloride 103 Carbon Dioxide 28 Anion Gap 7 BUN 7 Creatinine 0.48 L Estim Creat Clear Calc 71 Estimated GFR > 60 Glucose 121 H POC Capillary Glucose Hemoglobin A1c Calcium 8.8 Iron 22 L TIBC 377 % Saturation 6 L Ferritin 8.10 L Total Bilirubin 0.3 AST 15 ALT 11 Alkaline Phosphatase 129 H Troponin I < 0.012 NT-Pro-B Natriuret Pep 1160 H Total Protein 7.0 Albumin 3.6 Vitamin B12 287.0 Folate > 20.0 H TSH (Reflex) 2.820 Urine Color Yellow Urine Appearance Clear Urine pH 6.5 Ur Specific [place] 1.013 Urine Protein Negative Urine Glucose (UA) Negative Urine Ketones Negative Ur Blood (Man) Negative Urine Nitrate Negative Urine Bilirubin Negative Urine Urobilinogen 0.2 Leukocyte Esterase Rfl Negative Blood Type O Negative Antibody Screen Negative Crossmatch See Detail 11/10/24 11/11/24 11/11/24 21:24 07:05 08:10 WBC 6.2 RBC 4.08 L Hgb 9.7 L D Hct 31.2 L MCV 76.5 L MCH 23.8 L D MCHC 31.1 L RDW 18.6 H Plt Count 307 MPV 9.4 Immature Gran % (Auto) 0.3 Neut % (Auto) 63.2 Lymph % (Auto) 24.8 [place] % (Auto) 9.5 H Eos % (Auto) 1.9 Baso % (Auto) 0.3 Lymph # (Auto) 1.55 [place] # (Auto) 0.6 Eos # (Auto) 0.1 Baso # (Auto) 0.0 Abs Immat Gran (auto) 0.02 Absolute Neuts (auto) 3.9 Absolute Nucleated RBC 0.000 Band Neutrophils % Nucleated RBC % 0.0 Platelet Estimate Hypochromasia Target Cells Ovalocytes Schistocytes Sodium 141 Potassium 3.9 Chloride 106 Carbon Dioxide 28 Anion Gap 7 BUN 4 L Creatinine 0.45 L Estim Creat Clear Calc 76 Estimated GFR > 60 Glucose 106 POC Capillary Glucose 133 H 116 H Hemoglobin A1c 5.7 Calcium 8.9 Iron TIBC % Saturation Ferritin Total Bilirubin 0.9 AST 15 ALT 10 Alkaline Phosphatase 137 H Troponin I NT-Pro-B Natriuret Pep Total Protein 7.0 Albumin 3.6 Vitamin B12 Folate TSH (Reflex) Urine Color Urine Appearance Urine pH Ur Specific [place] Urine Protein Urine Glucose (UA) Urine Ketones Ur Blood (Man) Urine Nitrate Urine Bilirubin Urine Urobilinogen Leukocyte Esterase Rfl Blood Type Antibody Screen Crossmatch Quality VTE Prophylaxis VTE prophylaxis: mechanical ordered Hospitalist MIPS Advance Care Plan I have confirmed that the patient's Advanced Care Plan is present, code status is documented, or surrogate decision maker is listed in patient medical record.: Yes Medication Reconciliation I have utilized all available resources to obtain, update and review the patients current medications (includes all prescriptions, OTC, herbals, cannabis, and nutritional supplements).: Yes
[2024-11-11] MEDS: lamoTRIgine 25 MG TABLET 75 MG PO ×2 (08:56→17:30)
[2024-11-11] MEDS: PANTOPRAZOLE 40 MG TABLET PO (08:57)
[2024-11-11] MEDS: DOCUSATE SODIUM 100 MG CAPSULE PO ×2 (08:57→17:30)
[2024-11-11] MEDS: hydrALAZINE HCL 25 MG TABLET PO ×2 (08:57→20:19)
[2024-11-11] MEDS: DULoxetine HCL 60 MG CAPSULE.DR 120 MG PO (08:57)
[2024-11-11] MEDS: GABAPENTIN 300 MG CAPSULE 600 MG PO ×2 (08:58→17:30)
[2024-11-11] MEDS: METOPROLOL SUCCINATE EXT REL 50 MG TABCR PO (08:58)
[2024-11-11] MEDS: CLOPIDOGREL BISULFATE 75 MG TABLET PO (08:58)
[2024-11-11] MEDS: ATORVASTATIN 40 MG TABLET PO (08:58)
[2024-11-11] MEDS: FOLIC ACID 1 MG TABLET PO (08:58)
[2024-11-11] MEDS: OPTI-GEN TAB 2 TABLET PO (08:58)
[2024-11-11] MEDS: ISOSORBIDE MONONITRATE 15 MG TAB.ER.24H PO (08:58)
[2024-11-11] MEDS: PRIMIDONE 50 MG TABLET PO (08:58)
[2024-11-11] MEDS: hydrOXYzine HCL 25 MG TABLET PO (08:58)
[2024-11-11] MEDS: LOSARTAN POTASSIUM 100 MG TABLET PO (08:58)
[2024-11-11] MEDS: HYDROcodone/acetaminophen (*CRX) 5-325 MG TABLET 1 TAB PO ×2 (09:55→20:19)
[2024-11-11] MEDS: LORazepam (*CRX) 0.5 MG TABLET PO (09:55)
[2024-11-11 11:50] LABS: Glucose Point of Care 146 mg/dl (65-105)
[2024-11-11 11:53] LABS: Hematocrit 29.8 % (37.0-47.0); Hemoglobin 9.3 g/dL (12.0-15.0)
[2024-11-11 16:59] LABS: Glucose Point of Care 166 mg/dl (65-105)
[2024-11-11] MEDS: traZODone HCL 50 MG TABLET 100 MG PO (20:19)
[2024-11-11] MEDS: amLODIPine BESYLATE 5 MG TABLET PO (20:19)
[2024-11-11 21:40] LABS: Glucose Point of Care 150 mg/dl (65-105)
[2024-11-12] VITALS (7 sets, daily range): BP systolic 155–182; BP diastolic 50–70; PULSE 65–74; RESP 16; TEMP 36.4–36.8; O2SAT 94–96
[2024-11-12] MEDS: PREGABALIN (*CRX) 50 MG CAPSULE PO ×3 (05:46→21:05)
[2024-11-12 07:20] LABS: Alanine Aminotransferase 9 U/L (6-35); Albumin Level 3.3 g/dL (3.5-5.1); Alkaline Phosphatase 127 U/L (38-126); Anion Gap 7 mmol/L (4-12); Aspartate Amino Transferase 21 U/L (14-36); Bilirubin,Total 0.6 mg/dL (0.2-1.3); Blood Urea Nitrogen 7 mg/dL (7-17); Carbon Dioxide 28 mmol/L (22-30); Chloride 102 mmol/L (98-107); Estimated CRCL calculation 64 ml/min; Estimated Glomerular Filt Rate > 60; Glucose 110 mg/dL (65-110); Magnesium 1.9 mg/dL (1.6-2.3); Potassium 3.8 mmol/L (3.4-5.0); Sodium 137 mmol/L (137-145)
[2024-11-12 07:34] LABS: Glucose Point of Care 121 mg/dl (65-105)
--- NOTE | 2024-11-12 07:37 | PM.IMPN ---
Progress Note: A&P Assessment and Plan (1) Anemia: Qualifiers: Anemia type: unspecified type Qualified Code(s): D64.9 - Anemia, unspecified Code(s): D64.9 - Anemia, unspecified Status: Acute Assessment and Plan: - Hgb 6.2 - recieved 2 units PRBC - Hx of anemia in the setting of B12 deficiency, will continue supplement - monitor iron, TIBC, ferritin, B12, folic acid, and TSH iron 22, sat 6%, ferritin 8.10 - will need Venofer - will start with 200 mg IVPB, then start po iron - transfused 2 PRBC, recheck H&H post transfusion - transfuse if <7 - trend H&H - stool occult/MAYI negative --> hgb today 9.5 (2) Frequent falls: Code(s): R29.6 - Repeated falls Status: Acute Assessment and Plan: - reporting increase in falls over the last few weeks and has developed confusion at nights - trauma workup negative for acute fracture/injury - acute on chronic anemia per lab work, see above - fall precautions - PT/OT and care coordination consulted for d/c planning after shared decision making with the patient and her daughter, has recently required multiple rehab stays (3) Type 2 diabetes mellitus: Qualifiers: Diabetes mellitus complication status: without complication Diabetes mellitus nursing home insulin use: without nursing home use Qualified Code(s): E11.9 - Type 2 diabetes mellitus without complications Code(s): E11.9 - Type 2 diabetes mellitus without complications Status: Chronic Assessment and Plan: - initial glucose 133 - hypoglycemia protocol - POC blood glucose ACHS - no current home medications - correct regimen ordered - moderate dose TIDWM, based off BMI - A1C 9.3% on 06/30/2024, update (4) Hypertension: Qualifiers: Hypertension type: essential hypertension Qualified Code(s): I10 - Essential (primary) hypertension Code(s): I10 - Essential (primary) hypertension Status: Chronic Assessment and Plan: - chronic, currently 174/65 - continue home medications: Metoprolol, losartan, Imdur, hydralazine, amlodipine - monitor Plan Diet: Heart healthy GI Prophylaxis: Not currently indicated DVT Prophylaxis: SCDs Lines: Peripheral Code Status: Full code Time Spent With Patient Time with patient: Greater than 35 minutes (45 minutes) Subjective Date/time seen: 11/12/24 07:37 Interval history: 78 y/o F presents here with a ground level fall with PMH of osteoporosis, seronegative rheumatoid arthritis, diabetes, KIANNA not on CPAP, hypertension, anxiety/depression, anemia, emphysema, seizures, GERD, psoriasis, B12 deficiency, and hyperlipidemia. Patient received 2 units of packed red blood cells, she still complains of being very fatigued, she still reports being off balance. Working with discharge planning, on discharge to SNF. Patient denies any active chest pain, shortness of breath or any new distress. Review of Systems Review of Systems: All systems reviewed & are unremarkable except as noted in HPI and below Constitutional: Constitutional: Reports as per HPI and Reports no additional constitutional complaints Eyes: Eyes: Reports as per HPI and Reports no additional eye complaints ENT: Reports system reviewed and no additional complaints, except as documented Cardiovascular: Cardiovascular: Reports no additional cardiovascular complaints Respiratory: Respiratory: Reports no additional respiratory complaints Gastrointestinal: Gastrointestinal: Reports no additional gastrointestinal complaints Musculoskeletal: Musculoskeletal: Reports no additional musculoskeletal complaints Neurologic: Reports system reviewed and no additional complaints, except as documented Psychiatric: Psychiatric: Reports no additional psychiatric complaints Endocrine: Endocrine: Reports no additional endocrine complaints Hematologic/Lymphatic: Hematologic/Lymphatic: Reports no additional hematologic/lymphatic complaints Exam Const: General: cooperative, comfortable and no acute distress Orientation/consciousness: oriented to person, oriented to place and oriented to time Other: , female, nontoxic appearance, elderly HENMT: Head: normal to inspection and normocephalic Face/Nose/Sinus: Normal nares present Mouth: Yes moist mucous membranes Eyes: General: appearance normal, both eyes and all related structures Sclera: sclerae normal Pupils: Equal, round and reactive pupils present EOM: EOMs intact bilaterally Neck: Neck: normal visual inspection, full ROM and no lymphadenopathy Resp: Effort & Inspection: normal respiratory effort Auscultation: clear to auscultation bilaterally Cardio: Rate: regular rate Rhythm: regular rhythm Heart sounds: S1 normal heart sound present and S2 normal heart sound present Other: S1-S2 present without murmur, rub, ectopy GI: Inspection: normal to inspection Other: Abdomen soft, nondistended, nontender. Normoactive bowel sounds in all quadrants. Skin: General skin exam: normal color and no rashes or lesions noted Wounds: no wounds Neuro: General: oriented to person, oriented to place, oriented to time, tone normal and moves all extremities Cranial nerves: Yes Equal, round and reactive pupils present Speech: normal speech Motor exam (neuro): 5/5 motor strength present throughout Sensory Exam: normal sensation Other: A&O x4 Extrem: General: normal to inspection Psych: Appearance: grossly normal Mental Status: mental status grossly normal Affect: normal affect Other: Good insight and judgment, pleasant Objective Data Vital Signs Vital Signs: Vital Signs - 24 hr 11/11/24 08:00 11/11/24 11:43 11/11/24 14:09 Temperature 99.3 F 97.8 F Pulse Rate 82 65 60 Respiratory Rate 15 14 Blood Pressure 154/46 H 146/58 H Pulse Oximetry 94 94 Oxygen Delivery 11/11/24 20:20 11/11/24 20:54 11/11/24 21:07 Temperature 99.1 F Pulse Rate 60 66 66 Respiratory Rate 14 20 Blood Pressure 146/60 H Pulse Oximetry 94 91 Oxygen Delivery Room Air 11/12/24 00:03 11/12/24 04:03 11/12/24 05:42 Temperature 97.6 F Pulse Rate 65 74 74 Respiratory Rate 16 Blood Pressure 182/70 H Pulse Oximetry 96 Oxygen Delivery Intake/Output Intake/Output: Intake & Output 11/09/24 11/10/24 11/11/24 11/12/24 23:59 23:59 23:59 23:59 Intake Total 0 2950 500 Output Total 300 2000 Balance -300 950 500 Meds/Results Medications: Active Medications Generic Name Dose Route Start Last Admin Trade Name Freq PRN Reason Stop Dose Admin Acetaminophen 500 mg 11/10/24 22:38 Acetaminophen 500 Mg Tablet PO BID PRN PAIN RATED 1-3 Hydrocodone Bitart/Acetaminophen 1 tab 11/10/24 18:23 11/11/24 20:19 Hydrocodone/Acetaminophen (*Crx) 5-325 Mg Tablet PO 1 tab Q4H PRN Administration Pain Rated 4-6 Amlodipine Besylate 5 mg 11/10/24 22:55 11/11/24 20:19 Amlodipine Besylate 5 Mg Tablet PO 5 mg HS DORYS Administration Atorvastatin Calcium 40 mg 11/11/24 09:00 11/11/24 08:58 Atorvastatin 40 Mg Tablet PO 40 mg DAILY DORYS Administration Clopidogrel Bisulfate 75 mg 11/11/24 09:00 11/11/24 08:58 Clopidogrel Bisulfate 75 Mg Tablet PO 75 mg DAILY DORYS Administration Dextrose 12.5 gm 11/10/24 19:57 Dextrose 50% 25 Gm/50 Ml Syringe IV PUSH PRN PRN Hypoglycemia Protocol Docusate Sodium 100 mg 11/11/24 09:00 11/11/24 17:30 Docusate Sodium 100 Mg Capsule PO 100 mg BID DORYS Administration Duloxetine HCl 120 mg 11/11/24 09:00 11/11/24 08:57 Duloxetine Hcl 60 Mg Capsule.Dr PO 120 mg DAILY DORYS Administration Folic Acid 1 mg 11/11/24 09:00 11/11/24 08:58 Folic Acid 1 Mg Tablet PO 1 mg DAILY DORYS Administration Gabapentin 600 mg 11/10/24 22:55 11/11/24 17:30 Gabapentin 300 Mg Capsule PO 600 mg BID DORYS Administration Glucagon 1 mg 11/10/24 19:57 Glucagon For Inj 1 Mg Vial IM PRN PRN Hypoglycemia Protocol Glucose 15 gm 11/10/24 19:57 Glucose Oral Gel 15 Gm Of Glucse In 37.5 Gm Tube PO PRN PRN Hypoglycemia Protocol Hydralazine HCl 25 mg 11/10/24 22:40 11/11/24 20:19 Hydralazine Hcl 25 Mg Tablet PO 25 mg Q12HR DORYS Administration Hydroxyzine HCl 25 mg 11/11/24 09:00 11/11/24 08:58 Hydroxyzine Hcl 25 Mg Tablet PO 25 mg DAILY DORYS Administration Dextrose 1,000 mls @ 100 mls/hr 11/10/24 19:57 Dextrose 5% 1,000 Ml IVPB PRN PRN Hypoglycemia Protocol Iron Sucrose 200 mg/ Sodium 110 mls @ 220 mls/hr 11/12/24 07:35 Chloride IVPB 11/12/24 08:04 ONCE ONE Insulin Aspart 3 - 6 units 11/11/24 08:00 11/11/24 17:30 Insulin Aspart (*Bkc) 100 Units/Ml SUB-Q Not Given TIDWM DORYS Protocol Isosorbide Mononitrate 15 mg 11/11/24 09:00 11/11/24 08:58 Isosorbide Mononitrate 15 Mg Tab.Er.24h PO 15 mg DAILY DORYS Administration Lamotrigine 75 mg 11/10/24 22:55 11/11/24 17:30 Lamotrigine 25 Mg Tablet PO 75 mg BID DORYS Administration Lorazepam 0.5 mg 11/10/24 22:38 11/11/24 09:55 Lorazepam (*Crx) 0.5 Mg Tablet PO 0.5 mg TID PRN Administration anxiety Losartan Potassium 100 mg 11/11/24 09:00 11/11/24 08:58 Losartan Potassium 100 Mg Tablet PO 100 mg DAILY DORYS Administration Metoprolol Succinate 50 mg 11/11/24 09:00 11/11/24 08:58 Metoprolol Succinate Ext Rel 50 Mg Tabcr PO 50 mg DAILY DORYS Administration Miscellaneous Information 1 each 11/11/24 00:01 Hold Home Tramadol? Pt Has [place] For Pain Rated 4-6 XX 12/11/24 00:00 CLARIFY DORYS Multivitamins/Minerals 2 tablet 11/11/24 09:00 11/11/24 08:58 Opti-Gen Tab PO 2 tablet DAILY DORYS Administration Ondansetron HCl 4 mg 11/10/24 18:23 Ondansetron Inj 4 Mg/2 Ml Vial IV PUSH Q4H PRN Nausea Pantoprazole Sodium 40 mg 11/11/24 09:00 11/11/24 08:57 Pantoprazole 40 Mg Tablet PO 40 mg DAILY DORYS Administration Pregabalin 50 mg 11/10/24 22:40 11/12/24 05:46 Pregabalin (*Crx) 50 Mg Capsule PO 50 mg Q8HR DORYS Administration Primidone 50 mg 11/11/24 09:00 11/11/24 08:58 Primidone 50 Mg Tablet PO 50 mg DAILY DORYS Administration Tramadol HCl 50 mg 11/10/24 22:38 Tramadol Hcl (*Crx) 50 Mg Tablet PO Q6H PRN pain Trazodone HCl 100 mg 11/10/24 22:55 11/11/24 20:19 Trazodone Hcl 50 Mg Tablet PO 100 mg HS DORYS Administration Radiology Results: ITS Impressions Head CT 11/10/24 13:37 Impression: No acute intracranial hemorrhage or suspicious mass effect. Cervical Spine CT 11/10/24 13:39 IMPRESSION: 1. No fracture 2. Severe cervical spondylosis. Chest CT 11/10/24 13:40 IMPRESSION: No acute findings within the chest, as detailed above. Abdomen/Pelvis CT 11/10/24 17:43 IMPRESSION: Possible cystitis. Otherwise no acute abdominopelvic process detected. Labs Labs: Laboratory Results - last 24 hr 11/11/24 11/11/24 11/11/24 04:41 07:05 08:10 Hgb Hct Sodium 141 Potassium 3.9 Chloride 106 Carbon Dioxide 28 Anion Gap 7 BUN 4 L Creatinine 0.45 L Estim Creat Clear Calc 76 Estimated GFR > 60 Glucose 106 POC Capillary Glucose 116 H Calcium 8.9 Magnesium Total Bilirubin 0.9 AST 15 ALT 10 Alkaline Phosphatase 137 H Total Protein 7.0 Albumin 3.6 Vitamin B12 317.0 11/11/24 11/11/24 11/11/24 11:19 11:44 16:55 Hgb 9.3 L Hct 29.8 L Sodium Potassium Chloride Carbon Dioxide Anion Gap BUN Creatinine Estim Creat Clear Calc Estimated GFR Glucose POC Capillary Glucose 146 H 166 H Calcium Magnesium Total Bilirubin AST ALT Alkaline Phosphatase Total Protein Albumin Vitamin B12 11/11/24 11/12/24 11/12/24 21:10 06:39 07:32 Hgb Hct Sodium 137 Potassium 3.8 Chloride 102 Carbon Dioxide 28 Anion Gap 7 BUN 7 Creatinine 0.55 L Estim Creat Clear Calc 64 Estimated GFR > 60 Glucose 110 POC Capillary Glucose 150 H 121 H Calcium 9.0 Magnesium 1.9 Total Bilirubin 0.6 AST 21 ALT 9 Alkaline Phosphatase 127 H Total Protein 7.0 Albumin 3.3 L Vitamin B12 Quality VTE Prophylaxis VTE prophylaxis: mechanical ordered Hospitalist MIPS Advance Care Plan I have confirmed that the patient's Advanced Care Plan is present, code status is documented, or surrogate decision maker is listed in patient medical record.: Yes Medication Reconciliation I have utilized all available resources to obtain, update and review the patients current medications (includes all prescriptions, OTC, herbals, cannabis, and nutritional supplements).: Yes
[2024-11-12 07:39] LABS: Basophils Absolute Auto 0.1 K/mm3 (0.0-0.1); Basophils Percent Auto 0.6 % (0.2-1.2); Eosinophils Absolute Auto 0.1 K/mm3 (0-0.3); Eosinophils Percent Auto 1.1 % (0-4.4); Hematocrit 30.8 % (37.0-47.0); Hemoglobin 9.5 g/dL (12.0-15.0); Immature Granulocyte Absolute 0.02 K/mm3 (0.00-0.031); Immature Granulocyte Percent A 0.2 % (0-0.5); Lymphocytes Absolute Auto 1.54 K/mm3 (0.9-3.2); Lymphocytes Percent Auto 17.5 % (18.3-44.2); Mean Corpuscular HGB Conc 30.8 g/dl (32-36); Mean Corpuscular Hemoglobin 24.1 pg (26-34); Mean Corpuscular Volume 78.2 fl (80-100); Mean Platelet Volume 9.8 fl (7.4-10.4); Monocytes Absolute Auto 0.9 K/mm3 (0.1-0.6); Monocytes Percent Auto 10.2 % (2.6-8.5); Neutrophils Absolute Auto 6.2 K/mm3 (1.3-6.7); Neutrophils Percent Auto 70.4 % (45.5-73.1); Platelet Count Result 292 k/mm3 (150-375); Red Blood Count 3.94 M/mm3 (4.2-5.4); Red Cell Distribution Width 18.8 % (11.5-14.5); White Blood Count 8.8 K/mm3 (4.5-10.0)
[2024-11-12] MEDS: PRIMIDONE 50 MG TABLET PO (09:09)
[2024-11-12] MEDS: ATORVASTATIN 40 MG TABLET PO (09:09)
[2024-11-12] MEDS: GABAPENTIN 300 MG CAPSULE 600 MG PO ×2 (09:09→16:56)
[2024-11-12] MEDS: FOLIC ACID 1 MG TABLET PO (09:09)
[2024-11-12] MEDS: LORazepam (*CRX) 0.5 MG TABLET PO ×2 (09:10→20:18)
[2024-11-12] MEDS: lamoTRIgine 25 MG TABLET 75 MG PO ×2 (09:10→16:56)
[2024-11-12] MEDS: hydrOXYzine HCL 25 MG TABLET PO (09:10)
[2024-11-12] MEDS: METOPROLOL SUCCINATE EXT REL 50 MG TABCR PO (09:10)
[2024-11-12] MEDS: CLOPIDOGREL BISULFATE 75 MG TABLET PO (09:10)
[2024-11-12] MEDS: PANTOPRAZOLE 40 MG TABLET PO (09:10)
[2024-11-12] MEDS: LOSARTAN POTASSIUM 100 MG TABLET PO (09:10)
[2024-11-12] MEDS: ISOSORBIDE MONONITRATE 15 MG TAB.ER.24H PO (09:10)
[2024-11-12] MEDS: OPTI-GEN TAB 2 TABLET PO (09:10)
[2024-11-12] MEDS: hydrALAZINE HCL 25 MG TABLET PO ×2 (09:10→20:18)
[2024-11-12] MEDS: DOCUSATE SODIUM 100 MG CAPSULE PO ×2 (09:10→16:55)
[2024-11-12] MEDS: DULoxetine HCL 60 MG CAPSULE.DR 120 MG PO (09:10)
[2024-11-12] MEDS: HYDROcodone/acetaminophen (*CRX) 5-325 MG TABLET 1 TAB PO (09:11)
[2024-11-12] MEDS: IRON SUCROSE COMPLEX 200 MG in SODIUM CHLORIDE 0.9% IV 100 ML 220 MG IVPB (09:11)
[2024-11-12 12:07] LABS: Glucose Point of Care 117 mg/dl (65-105)
[2024-11-12 16:59] LABS: Glucose Point of Care 106 mg/dl (65-105)
[2024-11-12] MEDS: amLODIPine BESYLATE 5 MG TABLET PO (20:18)
[2024-11-12] MEDS: traZODone HCL 50 MG TABLET 100 MG PO (20:18)
[2024-11-12 21:06] LABS: Glucose Point of Care 116 mg/dl (65-105)
[2024-11-13 04:20] VITALS: BP 155/64; PULSE 71; RESP 16; TEMP 36.3; O2SAT 93
[2024-11-13] MEDS: PREGABALIN (*CRX) 50 MG CAPSULE PO ×3 (05:39→21:04)
[2024-11-13 07:26] LABS: Basophils Percent Auto 0.5 % (0.2-1.2); Eosinophils Absolute Auto 0.2 K/mm3 (0-0.3); Eosinophils Percent Auto 1.9 % (0-4.4); Hematocrit 31.3 % (37.0-47.0); Hemoglobin 9.4 g/dL (12.0-15.0); Immature Granulocyte Absolute 0.04 K/mm3 (0.00-0.031); Immature Granulocyte Percent A 0.5 % (0-0.5); Lymphocytes Absolute Auto 1.48 K/mm3 (0.9-3.2); Lymphocytes Percent Auto 17.3 % (18.3-44.2); Mean Corpuscular Hemoglobin 23.4 pg (26-34); Mean Corpuscular Volume 78.1 fl (80-100); Mean Platelet Volume 9.6 fl (7.4-10.4); Monocytes Absolute Auto 0.7 K/mm3 (0.1-0.6); Monocytes Percent Auto 8.5 % (2.6-8.5); Neutrophils Absolute Auto 6.1 K/mm3 (1.3-6.7); Neutrophils Percent Auto 71.3 % (45.5-73.1); Platelet Count Result 277 k/mm3 (150-375); Red Blood Count 4.01 M/mm3 (4.2-5.4); Red Cell Distribution Width 19.8 % (11.5-14.5); White Blood Count 8.6 K/mm3 (4.5-10.0)
--- NOTE | 2024-11-13 07:26 | PM.IMPN ---
Progress Note: A&P Assessment and Plan (1) Anemia: Qualifiers: Anemia type: unspecified type Qualified Code(s): D64.9 - Anemia, unspecified Code(s): D64.9 - Anemia, unspecified Status: Acute Assessment and Plan: - Hgb 6.2 - recieved 2 units PRBC - Hx of anemia in the setting of B12 deficiency, will continue supplement - monitor iron, TIBC, ferritin, B12, folic acid, and TSH iron 22, sat 6%, ferritin 8.10 - will need Venofer - will start with 200 mg IVPB 11/12/24, 100 on 11/13, then start po iron - transfused 2 PRBC, recheck H&H post transfusion - transfuse if <7 - trend H&H - stool occult/MAYI negative --> hgb today 9.4 (2) Frequent falls: Code(s): R29.6 - Repeated falls Status: Acute Assessment and Plan: - reporting increase in falls over the last few weeks and has developed confusion at nights - trauma workup negative for acute fracture/injury - acute on chronic anemia per lab work, see above - fall precautions - PT/OT and care coordination consulted for d/c planning after shared decision making with the patient and her daughter, has recently required multiple rehab stays (3) Type 2 diabetes mellitus: Qualifiers: Diabetes mellitus complication status: without complication Diabetes mellitus detention insulin use: without detention use Qualified Code(s): E11.9 - Type 2 diabetes mellitus without complications Code(s): E11.9 - Type 2 diabetes mellitus without complications Status: Chronic Assessment and Plan: - initial glucose 133 - hypoglycemia protocol - POC blood glucose ACHS - no current home medications - correct regimen ordered - moderate dose TIDWM, based off BMI - A1C 9.3% on 06/30/2024, update (4) Hypertension: Qualifiers: Hypertension type: essential hypertension Qualified Code(s): I10 - Essential (primary) hypertension Code(s): I10 - Essential (primary) hypertension Status: Chronic Assessment and Plan: - chronic, currently 174/65 - continue home medications: Metoprolol, losartan, Imdur, hydralazine, amlodipine - monitor Plan Diet: Heart healthy GI Prophylaxis: Not currently indicated DVT Prophylaxis: SCDs Lines: Peripheral Code Status: Full code Subjective Date/time seen: 11/13/24 07:26 Interval history: 78 y/o F presents here with a ground level fall with PMH of osteoporosis, seronegative rheumatoid arthritis, diabetes, KIANNA not on CPAP, hypertension, anxiety/depression, anemia, emphysema, seizures, GERD, psoriasis, B12 deficiency, and hyperlipidemia. Patient received 2 units of packed red blood cells, she still complains of being very fatigued, she still reports being off balance. Did work with PT/OT today. Working with discharge planning, on discharge to SNF. [place] better after iron transfusion yesterday, will have additional AIV iron today. Patient denies any active chest pain, shortness of breath or any new distress. Review of Systems Review of Systems: All systems reviewed & are unremarkable except as noted in HPI and below Constitutional: Constitutional: Reports as per HPI and Reports no additional constitutional complaints Eyes: Eyes: Reports as per HPI and Reports no additional eye complaints ENT: Reports system reviewed and no additional complaints, except as documented Cardiovascular: Cardiovascular: Reports no additional cardiovascular complaints Respiratory: Respiratory: Reports no additional respiratory complaints Gastrointestinal: Gastrointestinal: Reports no additional gastrointestinal complaints Musculoskeletal: Musculoskeletal: Reports no additional musculoskeletal complaints Neurologic: Reports system reviewed and no additional complaints, except as documented Psychiatric: Psychiatric: Reports no additional psychiatric complaints Endocrine: Endocrine: Reports no additional endocrine complaints Hematologic/Lymphatic: Hematologic/Lymphatic: Reports no additional hematologic/lymphatic complaints Exam Const: General: cooperative, comfortable and no acute distress Orientation/consciousness: oriented to person, oriented to place and oriented to time Other: , female, nontoxic appearance, elderly HENMT: Head: normal to inspection and normocephalic Face/Nose/Sinus: Normal nares present Mouth: Yes moist mucous membranes Eyes: General: appearance normal, both eyes and all related structures Sclera: sclerae normal Pupils: Equal, round and reactive pupils present EOM: EOMs intact bilaterally Neck: Neck: normal visual inspection, full ROM and no lymphadenopathy Resp: Effort & Inspection: normal respiratory effort Auscultation: clear to auscultation bilaterally Cardio: Rate: regular rate Rhythm: regular rhythm Heart sounds: S1 normal heart sound present and S2 normal heart sound present Other: S1-S2 present without murmur, rub, ectopy GI: Inspection: normal to inspection Other: Abdomen soft, nondistended, nontender. Normoactive bowel sounds in all quadrants. Skin: General skin exam: normal color and no rashes or lesions noted Wounds: no wounds Neuro: General: oriented to person, oriented to place, oriented to time, tone normal and moves all extremities Cranial nerves: Yes Equal, round and reactive pupils present Speech: normal speech Motor exam (neuro): 5/5 motor strength present throughout Sensory Exam: normal sensation Other: A&O x4 Extrem: General: normal to inspection Psych: Appearance: grossly normal Mental Status: mental status grossly normal Affect: normal affect Other: Good insight and judgment, pleasant Objective Data Vital Signs Vital Signs: Vital Signs - 24 hr 11/12/24 08:00 11/12/24 09:33 11/12/24 14:38 Temperature 98.1 F Pulse Rate 73 66 Respiratory Rate 16 Blood Pressure 155/50 H Pulse Oximetry 94 Oxygen Delivery Room Air 11/12/24 20:20 11/12/24 20:26 11/13/24 04:20 Temperature 98.2 F 97.4 F L Pulse Rate 65 65 71 Respiratory Rate 16 16 16 Blood Pressure 169/60 H 155/64 H Pulse Oximetry 94 94 93 Oxygen Delivery Room Air Intake/Output Intake/Output: Intake & Output 11/10/24 11/11/24 11/12/24 11/13/24 23:59 23:59 23:59 23:59 Intake Total 0 2950 1280 Output Total 300 2000 Balance -658 181 4473 Meds/Results Medications: Active Medications Generic Name Dose Route Start Last Admin Trade Name Freq PRN Reason Stop Dose Admin Acetaminophen 500 mg 11/10/24 22:38 Acetaminophen 500 Mg Tablet PO BID PRN PAIN RATED 1-3 Hydrocodone Bitart/Acetaminophen 1 tab 11/10/24 18:23 11/12/24 09:11 Hydrocodone/Acetaminophen (*Crx) 5-325 Mg Tablet PO 1 tab Q4H PRN Administration Pain Rated 4-6 Amlodipine Besylate 5 mg 11/10/24 22:55 11/12/24 20:18 Amlodipine Besylate 5 Mg Tablet PO 5 mg HS DORYS Administration Atorvastatin Calcium 40 mg 11/11/24 09:00 11/12/24 09:09 Atorvastatin 40 Mg Tablet PO 40 mg DAILY DORYS Administration Clopidogrel Bisulfate 75 mg 11/11/24 09:00 11/12/24 09:10 Clopidogrel Bisulfate 75 Mg Tablet PO 75 mg DAILY DORYS Administration Dextrose 12.5 gm 11/10/24 19:57 Dextrose 50% 25 Gm/50 Ml Syringe IV PUSH PRN PRN Hypoglycemia Protocol Docusate Sodium 100 mg 11/11/24 09:00 11/12/24 16:55 Docusate Sodium 100 Mg Capsule PO 100 mg BID DORYS Administration Duloxetine HCl 120 mg 11/11/24 09:00 11/12/24 09:10 Duloxetine Hcl 60 Mg Capsule.Dr PO 120 mg DAILY DORYS Administration Folic Acid 1 mg 11/11/24 09:00 11/12/24 09:09 Folic Acid 1 Mg Tablet PO 1 mg DAILY DORYS Administration Gabapentin 600 mg 11/10/24 22:55 11/12/24 16:56 Gabapentin 300 Mg Capsule PO 600 mg BID DORYS Administration Glucagon 1 mg 11/10/24 19:57 Glucagon For Inj 1 Mg Vial IM PRN PRN Hypoglycemia Protocol Glucose 15 gm 11/10/24 19:57 Glucose Oral Gel 15 Gm Of Glucse In 37.5 Gm Tube PO PRN PRN Hypoglycemia Protocol Hydralazine HCl 25 mg 11/10/24 22:40 11/12/24 20:18 Hydralazine Hcl 25 Mg Tablet PO 25 mg Q12HR DORYS Administration Hydroxyzine HCl 25 mg 11/11/24 09:00 11/12/24 09:10 Hydroxyzine Hcl 25 Mg Tablet PO 25 mg DAILY DORYS Administration Dextrose 1,000 mls @ 100 mls/hr 11/10/24 19:57 Dextrose 5% 1,000 Ml IVPB PRN PRN Hypoglycemia Protocol Insulin Aspart 3 - 6 units 11/11/24 08:00 11/12/24 16:57 Insulin Aspart (*Bkc) 100 Units/Ml SUB-Q Not Given TIDWM DORYS Protocol Isosorbide Mononitrate 15 mg 11/11/24 09:00 11/12/24 09:10 Isosorbide Mononitrate 15 Mg Tab.Er.24h PO 15 mg DAILY DORYS Administration Lamotrigine 75 mg 11/10/24 22:55 11/12/24 16:56 Lamotrigine 25 Mg Tablet PO 75 mg BID DORYS Administration Lorazepam 0.5 mg 11/10/24 22:38 11/12/24 20:18 Lorazepam (*Crx) 0.5 Mg Tablet PO 0.5 mg TID PRN Administration anxiety Losartan Potassium 100 mg 11/11/24 09:00 11/12/24 09:10 Losartan Potassium 100 Mg Tablet PO 100 mg DAILY DORYS Administration Metoprolol Succinate 50 mg 11/11/24 09:00 11/12/24 09:10 Metoprolol Succinate Ext Rel 50 Mg Tabcr PO 50 mg DAILY DORYS Administration Miscellaneous Information 1 each 11/11/24 00:01 Hold Home Tramadol? Pt Has [place] For Pain Rated 4-6 XX 12/11/24 00:00 CLARIFY DORYS Multivitamins/Minerals 2 tablet 11/11/24 09:00 11/12/24 09:10 Opti-Gen Tab PO 2 tablet DAILY DORYS Administration Ondansetron HCl 4 mg 11/10/24 18:23 Ondansetron Inj 4 Mg/2 Ml Vial IV PUSH Q4H PRN Nausea Pantoprazole Sodium 40 mg 11/11/24 09:00 11/12/24 09:10 Pantoprazole 40 Mg Tablet PO 40 mg DAILY DOYRS Administration Pregabalin 50 mg 11/10/24 22:40 11/13/24 05:39 Pregabalin (*Crx) 50 Mg Capsule PO 50 mg Q8HR DORYS Administration Primidone 50 mg 11/11/24 09:00 11/12/24 09:09 Primidone 50 Mg Tablet PO 50 mg DAILY DORYS Administration Tramadol HCl 50 mg 11/10/24 22:38 Tramadol Hcl (*Crx) 50 Mg Tablet PO Q6H PRN pain Trazodone HCl 100 mg 11/10/24 22:55 11/12/24 20:18 Trazodone Hcl 50 Mg Tablet PO 100 mg HS DORYS Administration Radiology Results: ITS Impressions Head CT 11/10/24 13:37 Impression: No acute intracranial hemorrhage or suspicious mass effect. Cervical Spine CT 11/10/24 13:39 IMPRESSION: 1. No fracture 2. Severe cervical spondylosis. Chest CT 11/10/24 13:40 IMPRESSION: No acute findings within the chest, as detailed above. Abdomen/Pelvis CT 11/10/24 17:43 IMPRESSION: Possible cystitis. Otherwise no acute abdominopelvic process detected. Labs Labs: Laboratory Results - last 24 hr 11/12/24 11/12/24 11/12/24 06:39 07:32 12:02 WBC 8.8 RBC 3.94 L Hgb 9.5 L Hct 30.8 L MCV 78.2 L MCH 24.1 L MCHC 30.8 L RDW 18.8 H Plt Count 292 MPV 9.8 Immature Gran % (Auto) 0.2 Neut % (Auto) 70.4 Lymph % (Auto) 17.5 L [place] % (Auto) 10.2 H Eos % (Auto) 1.1 Baso % (Auto) 0.6 Lymph # (Auto) 1.54 [place] # (Auto) 0.9 H Eos # (Auto) 0.1 Baso # (Auto) 0.1 Abs Immat Gran (auto) 0.02 Absolute Neuts (auto) 6.2 Absolute Nucleated RBC 0.000 Nucleated RBC % 0.0 POC Capillary Glucose 121 H 117 H 11/12/24 11/12/24 16:56 21:04 WBC RBC Hgb Hct MCV MCH MCHC RDW Plt Count MPV Immature Gran % (Auto) Neut % (Auto) Lymph % (Auto) [place] % (Auto) Eos % (Auto) Baso % (Auto) Lymph # (Auto) [place] # (Auto) Eos # (Auto) Baso # (Auto) Abs Immat Gran (auto) Absolute Neuts (auto) Absolute Nucleated RBC Nucleated RBC % POC Capillary Glucose 106 H 116 H Quality VTE Prophylaxis VTE prophylaxis: mechanical ordered
[2024-11-13 07:44] LABS: Alanine Aminotransferase 8 U/L (6-35); Albumin Level 3.2 g/dL (3.5-5.1); Alkaline Phosphatase 125 U/L (38-126); Anion Gap 6 mmol/L (4-12); Aspartate Amino Transferase 16 U/L (14-36); Bilirubin,Total 0.5 mg/dL (0.2-1.3); Blood Urea Nitrogen 8 mg/dL (7-17); Calcium 8.8 mg/dL (8.4-10.2); Carbon Dioxide 28 mmol/L (22-30); Chloride 105 mmol/L (98-107); Estimated CRCL calculation 72 ml/min; Estimated Glomerular Filt Rate > 60; Glucose 110 mg/dL (65-110); Magnesium 1.9 mg/dL (1.6-2.3); Potassium 3.6 mmol/L (3.4-5.0); Sodium 139 mmol/L (137-145)
[2024-11-13 07:54] LABS: Glucose Point of Care 117 mg/dl (65-105)
[2024-11-13] MEDS: LOSARTAN POTASSIUM 100 MG TABLET PO (09:32)
[2024-11-13] MEDS: ATORVASTATIN 40 MG TABLET PO (09:32)
[2024-11-13] MEDS: hydrALAZINE HCL 25 MG TABLET PO ×2 (09:32→21:04)
[2024-11-13] MEDS: DOCUSATE SODIUM 100 MG CAPSULE PO ×2 (09:32→17:13)
[2024-11-13] MEDS: PANTOPRAZOLE 40 MG TABLET PO (09:32)
[2024-11-13 09:33] VITALS: PULSE 71
[2024-11-13] MEDS: PRIMIDONE 50 MG TABLET PO (09:33)
[2024-11-13] MEDS: OPTI-GEN TAB 2 TABLET PO (09:33)
[2024-11-13] MEDS: ISOSORBIDE MONONITRATE 15 MG TAB.ER.24H PO (09:33)
[2024-11-13] MEDS: GABAPENTIN 300 MG CAPSULE 600 MG PO ×2 (09:33→17:13)
[2024-11-13] MEDS: METOPROLOL SUCCINATE EXT REL 50 MG TABCR PO (09:33)
[2024-11-13] MEDS: DULoxetine HCL 60 MG CAPSULE.DR 120 MG PO (09:33)
[2024-11-13] MEDS: ACETAMINOPHEN 500 MG TABLET PO (09:34)
[2024-11-13] MEDS: CLOPIDOGREL BISULFATE 75 MG TABLET PO (09:35)
[2024-11-13] MEDS: FOLIC ACID 1 MG TABLET PO (09:35)
[2024-11-13] MEDS: IRON SUCROSE COMPLEX 100 MG in SODIUM CHLORIDE 0.9% IV 50 ML 220 MG IVPB (09:39)
[2024-11-13] MEDS: lamoTRIgine 25 MG TABLET 75 MG PO ×2 (09:45→17:13)
[2024-11-13] MEDS: hydrOXYzine HCL 25 MG TABLET PO (09:45)
[2024-11-13 11:07] LABS: Glucose Point of Care 138 mg/dl (65-105)
--- NOTE | 2024-11-13 11:56 | PM.IMPN ---
Progress Note: A&P Assessment and Plan (1) Anemia: Qualifiers: Anemia type: unspecified type Qualified Code(s): D64.9 - Anemia, unspecified Code(s): D64.9 - Anemia, unspecified Status: Acute Assessment and Plan: - Hgb 6.2 - recieved 2 units PRBC - Hx of anemia in the setting of B12 deficiency, will continue supplement - monitor iron, TIBC, ferritin, B12, folic acid, and TSH iron 22, sat 6%, ferritin 8.10 - will need Venofer - will start with 200 mg IVPB, then start po iron - transfused 2 PRBC, recheck H&H post transfusion - transfuse if <7 - trend H&H - stool occult/MAYI negative --> hgb today 9.5 (2) Frequent falls: Code(s): R29.6 - Repeated falls Status: Acute Assessment and Plan: - reporting increase in falls over the last few weeks and has developed confusion at nights - trauma workup negative for acute fracture/injury - acute on chronic anemia per lab work, see above - fall precautions - PT/OT and care coordination consulted for d/c planning after shared decision making with the patient and her daughter, has recently required multiple rehab stays (3) Type 2 diabetes mellitus: Qualifiers: Diabetes mellitus buttermaker helper insulin use: without buttermaker helper use Diabetes mellitus complication status: without complication Qualified Code(s): E11.9 - Type 2 diabetes mellitus without complications Code(s): E11.9 - Type 2 diabetes mellitus without complications Status: Chronic Assessment and Plan: - initial glucose 133 - hypoglycemia protocol - POC blood glucose ACHS - no current home medications - correct regimen ordered - moderate dose TIDWM, based off BMI - A1C 9.3% on 06/30/2024, update (4) Hypertension: Qualifiers: Hypertension type: essential hypertension Qualified Code(s): I10 - Essential (primary) hypertension Code(s): I10 - Essential (primary) hypertension Status: Chronic Assessment and Plan: - chronic, currently 174/65 - continue home medications: Metoprolol, losartan, Imdur, hydralazine, amlodipine - monitor Plan Diet: Heart healthy GI Prophylaxis: Not currently indicated DVT Prophylaxis: SCDs Lines: Peripheral Code Status: Full code Subjective Date/time seen: 11/13/24 11:56 Interval history: 78 y/o F presents here with a ground level fall with PMH of osteoporosis, seronegative rheumatoid arthritis, diabetes, KIANNA not on CPAP, hypertension, anxiety/depression, anemia, emphysema, seizures, GERD, psoriasis, B12 deficiency, and hyperlipidemia. Patient received 2 units of packed red blood cells, she still complains of being very fatigued, she still reports being off balance, but is working with PT/OT.. Working with discharge planning, on discharge to SNF. Aspers better after iron transfusion, will have one more then start po. Patient denies any active chest pain, shortness of breath or any new distress. Review of Systems Review of Systems: All systems reviewed & are unremarkable except as noted in HPI and below Constitutional: Constitutional: Reports as per HPI and Reports no additional constitutional complaints Eyes: Eyes: Reports as per HPI and Reports no additional eye complaints ENT: Reports system reviewed and no additional complaints, except as documented Cardiovascular: Cardiovascular: Reports no additional cardiovascular complaints Respiratory: Respiratory: Reports no additional respiratory complaints Gastrointestinal: Gastrointestinal: Reports no additional gastrointestinal complaints Musculoskeletal: Musculoskeletal: Reports no additional musculoskeletal complaints Neurologic: Reports system reviewed and no additional complaints, except as documented Psychiatric: Psychiatric: Reports no additional psychiatric complaints Endocrine: Endocrine: Reports no additional endocrine complaints Hematologic/Lymphatic: Hematologic/Lymphatic: Reports no additional hematologic/lymphatic complaints Exam Const: General: cooperative, comfortable and no acute distress Orientation/consciousness: oriented to person, oriented to place and oriented to time Other: , female, nontoxic appearance, elderly HENMT: Head: normal to inspection and normocephalic Face/Nose/Sinus: Normal nares present Mouth: Yes moist mucous membranes Eyes: General: appearance normal, both eyes and all related structures Sclera: sclerae normal Pupils: Equal, round and reactive pupils present EOM: EOMs intact bilaterally Neck: Neck: normal visual inspection, full ROM and no lymphadenopathy Resp: Effort & Inspection: normal respiratory effort Auscultation: clear to auscultation bilaterally Cardio: Rate: regular rate Rhythm: regular rhythm Heart sounds: S1 normal heart sound present and S2 normal heart sound present Other: S1-S2 present without murmur, rub, ectopy GI: Inspection: normal to inspection Other: Abdomen soft, nondistended, nontender. Normoactive bowel sounds in all quadrants. Skin: General skin exam: normal color and no rashes or lesions noted Wounds: no wounds Neuro: General: oriented to person, oriented to place, oriented to time, tone normal and moves all extremities Cranial nerves: Yes Equal, round and reactive pupils present Speech: normal speech Motor exam (neuro): 5/5 motor strength present throughout Sensory Exam: normal sensation Other: A&O x4 Extrem: General: normal to inspection Psych: Appearance: grossly normal Mental Status: mental status grossly normal Affect: normal affect Other: Good insight and judgment, pleasant Objective Data Vital Signs Vital Signs: Vital Signs - 24 hr 11/12/24 14:38 11/12/24 20:20 11/12/24 20:26 Temperature 98.1 F 98.2 F Pulse Rate 66 65 65 Respiratory Rate 16 16 16 Blood Pressure 155/50 H 169/60 H Pulse Oximetry 94 94 94 Oxygen Delivery Room Air 11/13/24 04:20 11/13/24 09:33 11/13/24 09:47 Temperature 97.4 F L Pulse Rate 71 71 Respiratory Rate 16 Blood Pressure 155/64 H Pulse Oximetry 93 Oxygen Delivery Room Air Intake/Output Intake/Output: Intake & Output 11/10/24 11/11/24 11/12/24 11/13/24 23:59 23:59 23:59 23:59 Intake Total 0 2950 1280 240 Output Total 300 2000 Balance -988 020 5930 240 Meds/Results Medications: Active Medications Generic Name Dose Route Start Last Admin Trade Name Nikhilq PRN Reason Stop Dose Admin Acetaminophen 500 mg 11/10/24 22:38 11/13/24 09:34 Acetaminophen 500 Mg Tablet PO 500 mg BID PRN Administration PAIN RATED 1-3 Hydrocodone Bitart/Acetaminophen 1 tab 11/10/24 18:23 11/12/24 09:11 Hydrocodone/Acetaminophen (*Crx) 5-325 Mg Tablet PO 1 tab Q4H PRN Administration Pain Rated 4-6 Amlodipine Besylate 5 mg 11/10/24 22:55 11/12/24 20:18 Amlodipine Besylate 5 Mg Tablet PO 5 mg HS DORYS Administration Atorvastatin Calcium 40 mg 11/11/24 09:00 11/13/24 09:32 Atorvastatin 40 Mg Tablet PO 40 mg DAILY DORYS Administration Clopidogrel Bisulfate 75 mg 11/11/24 09:00 11/13/24 09:35 Clopidogrel Bisulfate 75 Mg Tablet PO 75 mg DAILY DORYS Administration Dextrose 12.5 gm 11/10/24 19:57 Dextrose 50% 25 Gm/50 Ml Syringe IV PUSH PRN PRN Hypoglycemia Protocol Docusate Sodium 100 mg 11/11/24 09:00 11/13/24 09:32 Docusate Sodium 100 Mg Capsule PO 100 mg BID DORYS Administration Duloxetine HCl 120 mg 11/11/24 09:00 11/13/24 09:33 Duloxetine Hcl 60 Mg Capsule.Dr PO 120 mg DAILY DORYS Administration Ferrous Sulfate 325 mg 11/14/24 09:00 Ferrous Sulfate [address] PO DAILY DORYS Folic Acid 1 mg 11/11/24 09:00 11/13/24 09:35 Folic Acid 1 Mg Tablet PO 1 mg DAILY DORYS Administration Gabapentin 600 mg 11/10/24 22:55 11/13/24 09:33 Gabapentin 300 Mg Capsule PO 600 mg BID DORYS Administration Glucagon 1 mg 11/10/24 19:57 Glucagon For Inj 1 Mg Vial IM PRN PRN Hypoglycemia Protocol Glucose 15 gm 11/10/24 19:57 Glucose Oral Gel 15 Gm Of Glucse In 37.5 Gm Tube PO PRN PRN Hypoglycemia Protocol Hydralazine HCl 25 mg 11/10/24 22:40 11/13/24 09:32 Hydralazine Hcl 25 Mg Tablet PO 25 mg Q12HR DORYS Administration Hydroxyzine HCl 25 mg 11/11/24 09:00 11/13/24 09:45 Hydroxyzine Hcl 25 Mg Tablet PO 25 mg DAILY DORYS Administration Dextrose 1,000 mls @ 100 mls/hr 11/10/24 19:57 Dextrose 5% 1,000 Ml IVPB PRN PRN Hypoglycemia Protocol Insulin Aspart 3 - 6 units 11/11/24 08:00 11/13/24 09:28 Insulin Aspart (*Bkc) 100 Units/Ml SUB-Q Not Given TIDWM [facility] Protocol Isosorbide Mononitrate 15 mg 11/11/24 09:00 11/13/24 09:33 Isosorbide Mononitrate 15 Mg Tab.Er.24h PO 15 mg DAILY DORYS Administration Lamotrigine 75 mg 11/10/24 22:55 11/13/24 09:45 Lamotrigine 25 Mg Tablet PO 75 mg BID DORYS Administration Lorazepam 0.5 mg 11/10/24 22:38 11/12/24 20:18 Lorazepam (*Crx) 0.5 Mg Tablet PO 0.5 mg TID PRN Administration anxiety Losartan Potassium 100 mg 11/11/24 09:00 11/13/24 09:32 Losartan Potassium 100 Mg Tablet PO 100 mg DAILY DORYS Administration Metoprolol Succinate 50 mg 11/11/24 09:00 11/13/24 09:33 Metoprolol Succinate Ext Rel 50 Mg Tabcr PO 50 mg DAILY DORYS Administration Miscellaneous Information 1 each 11/11/24 00:01 Hold Home Tramadol? Pt Has [place] For Pain Rated 4-6 XX 12/11/24 00:00 CLARIFY DORYS Multivitamins/Minerals 2 tablet 11/11/24 09:00 11/13/24 09:33 Opti-Gen Tab PO 2 tablet DAILY DORYS Administration Ondansetron HCl 4 mg 11/10/24 18:23 Ondansetron Inj 4 Mg/2 Ml Vial IV PUSH Q4H PRN Nausea Pantoprazole Sodium 40 mg 11/11/24 09:00 11/13/24 09:32 Pantoprazole 40 Mg Tablet PO 40 mg DAILY DORYS Administration Pregabalin 50 mg 11/10/24 22:40 11/13/24 05:39 Pregabalin (*Crx) 50 Mg Capsule PO 50 mg Q8HR DORYS Administration Primidone 50 mg 11/11/24 09:00 11/13/24 09:33 Primidone 50 Mg Tablet PO 50 mg DAILY DORYS Administration Tramadol HCl 50 mg 11/10/24 22:38 Tramadol Hcl (*Crx) 50 Mg Tablet PO Q6H PRN pain Trazodone HCl 100 mg 11/10/24 22:55 11/12/24 20:18 Trazodone Hcl 50 Mg Tablet PO 100 mg HS DORYS Administration Radiology Results: ITS Impressions Head CT 11/10/24 13:37 Impression: No acute intracranial hemorrhage or suspicious mass effect. Cervical Spine CT 11/10/24 13:39 IMPRESSION: 1. No fracture 2. Severe cervical spondylosis. Chest CT 11/10/24 13:40 IMPRESSION: No acute findings within the chest, as detailed above. Abdomen/Pelvis CT 11/10/24 17:43 IMPRESSION: Possible cystitis. Otherwise no acute abdominopelvic process detected. Labs Labs: Laboratory Results - last 24 hr 11/12/24 11/12/24 11/12/24 12:02 16:56 21:04 WBC RBC Hgb Hct MCV MCH MCHC RDW Plt Count MPV Immature Gran % (Auto) Neut % (Auto) Lymph % (Auto) [place] % (Auto) Eos % (Auto) Baso % (Auto) Lymph # (Auto) [place] # (Auto) Eos # (Auto) Baso # (Auto) Abs Immat Gran (auto) Absolute Neuts (auto) Absolute Nucleated RBC Nucleated RBC % Sodium Potassium Chloride Carbon Dioxide Anion Gap BUN Creatinine Estim Creat Clear Calc Estimated GFR Glucose POC Capillary Glucose 117 H 106 H 116 H Calcium Magnesium Total Bilirubin AST ALT Alkaline Phosphatase Total Protein Albumin 11/13/24 11/13/24 11/13/24 06:53 07:51 11:05 WBC 8.6 RBC 4.01 L Hgb 9.4 L Hct 31.3 L MCV 78.1 L MCH 23.4 L MCHC 30.0 L RDW 19.8 H Plt Count 277 MPV 9.6 Immature Gran % (Auto) 0.5 Neut % (Auto) 71.3 Lymph % (Auto) 17.3 L [place] % (Auto) 8.5 Eos % (Auto) 1.9 Baso % (Auto) 0.5 Lymph # (Auto) 1.48 [place] # (Auto) 0.7 H Eos # (Auto) 0.2 Baso # (Auto) 0.0 Abs Immat Gran (auto) 0.04 H Absolute Neuts (auto) 6.1 Absolute Nucleated RBC 0.000 Nucleated RBC % 0.0 Sodium 139 Potassium 3.6 Chloride 105 Carbon Dioxide 28 Anion Gap 6 BUN 8 Creatinine 0.48 L Estim Creat Clear Calc 72 Estimated GFR > 60 Glucose 110 POC Capillary Glucose 117 H 138 H Calcium 8.8 Magnesium 1.9 Total Bilirubin 0.5 AST 16 ALT 8 Alkaline Phosphatase 125 Total Protein 7.0 Albumin 3.2 L Quality VTE Prophylaxis VTE prophylaxis: mechanical ordered
[2024-11-13 12:22] VITALS: O2SAT 93
[2024-11-13 14:00] VITALS: BP 156/54; PULSE 65; RESP 18; TEMP 36.7; O2SAT 92
--- NOTE | 2024-11-13 14:31 | PCPTNOTE ---
On 11/13/24, the student, PAOLA Rich, provided care and completed [facility] documentation on this patient. I have reviewed the student's documentation and agree with the findings.
[2024-11-13 16:46] LABS: Glucose Point of Care 196 mg/dl (65-105)
[2024-11-13] MEDS: HYDROcodone/acetaminophen (*CRX) 5-325 MG TABLET 1 TAB PO ×2 (17:27→21:04)
[2024-11-13] MEDS: amLODIPine BESYLATE 5 MG TABLET PO (21:04)
[2024-11-13] MEDS: traZODone HCL 50 MG TABLET 100 MG PO (21:04)
[2024-11-13 21:05] VITALS: PULSE 65; RESP 18; O2SAT 92
[2024-11-13 22:00] VITALS: BP 152/53; PULSE 65; RESP 18; TEMP 36.1; O2SAT 94
[2024-11-13 22:09] LABS: Glucose Point of Care 80 mg/dl (65-105)
[2024-11-14 06:00] VITALS: BP 130/49; PULSE 60; RESP 18; TEMP 37.2; O2SAT 91
[2024-11-14] MEDS: PREGABALIN (*CRX) 50 MG CAPSULE PO ×2 (06:13→14:13)
[2024-11-14 07:02] LABS: Basophils Percent Auto 0.3 % (0.2-1.2); Eosinophils Absolute Auto 0.2 K/mm3 (0-0.3); Eosinophils Percent Auto 2.4 % (0-4.4); Hematocrit 28.7 % (37.0-47.0); Hemoglobin 8.7 g/dL (12.0-15.0); Immature Granulocyte Absolute 0.04 K/mm3 (0.00-0.031); Immature Granulocyte Percent A 0.5 % (0-0.5); Lymphocytes Percent Auto 21.7 % (18.3-44.2); Mean Corpuscular HGB Conc 30.3 g/dl (32-36); Mean Corpuscular Volume 79.3 fl (80-100); Mean Platelet Volume 9.9 fl (7.4-10.4); Monocytes Absolute Auto 0.8 K/mm3 (0.1-0.6); Monocytes Percent Auto 9.8 % (2.6-8.5); Neutrophils Absolute Auto 5.1 K/mm3 (1.3-6.7); Neutrophils Percent Auto 65.3 % (45.5-73.1); Platelet Count Result 266 k/mm3 (150-375); Red Blood Count 3.62 M/mm3 (4.2-5.4); Red Cell Distribution Width 20.1 % (11.5-14.5); White Blood Count 7.9 K/mm3 (4.5-10.0)
[2024-11-14 07:08] LABS: Alanine Aminotransferase 9 U/L (6-35); Albumin Level 3.2 g/dL (3.5-5.1); Alkaline Phosphatase 116 U/L (38-126); Anion Gap 7 mmol/L (4-12); Aspartate Amino Transferase 15 U/L (14-36); Bilirubin,Total 0.4 mg/dL (0.2-1.3); Blood Urea Nitrogen 11 mg/dL (7-17); Carbon Dioxide 27 mmol/L (22-30); Chloride 103 mmol/L (98-107); Estimated CRCL calculation 65 ml/min; Estimated Glomerular Filt Rate > 60; Glucose 99 mg/dL (65-110); Magnesium 2.1 mg/dL (1.6-2.3); Potassium 3.6 mmol/L (3.4-5.0); Sodium 137 mmol/L (137-145)
[2024-11-14 07:55] LABS: Glucose Point of Care 115 mg/dl (65-105)
[2024-11-14 08:00] VITALS: PULSE 61; RESP 16; O2SAT 97
[2024-11-14 09:15] VITALS: PULSE 60
[2024-11-14] MEDS: FERROUS SULFATE 325 MG TABLET DR PO (09:15)
[2024-11-14] MEDS: DOCUSATE SODIUM 100 MG CAPSULE PO ×2 (09:15→18:15)
[2024-11-14] MEDS: METOPROLOL SUCCINATE EXT REL 50 MG TABCR PO (09:15)
[2024-11-14] MEDS: LOSARTAN POTASSIUM 100 MG TABLET PO (09:15)
[2024-11-14] MEDS: ISOSORBIDE MONONITRATE 15 MG TAB.ER.24H PO (09:15)
[2024-11-14] MEDS: CLOPIDOGREL BISULFATE 75 MG TABLET PO (09:17)
[2024-11-14] MEDS: hydrALAZINE HCL 25 MG TABLET PO ×2 (09:17→20:43)
[2024-11-14] MEDS: GABAPENTIN 300 MG CAPSULE 600 MG PO ×2 (09:17→17:52)
[2024-11-14] MEDS: FOLIC ACID 1 MG TABLET PO (09:17)
[2024-11-14] MEDS: lamoTRIgine 25 MG TABLET 75 MG PO ×2 (09:17→14:53)
[2024-11-14] MEDS: ATORVASTATIN 40 MG TABLET PO (09:17)
[2024-11-14] MEDS: OPTI-GEN TAB 2 TABLET PO (09:17)
[2024-11-14] MEDS: DULoxetine HCL 60 MG CAPSULE.DR 120 MG PO (09:18)
[2024-11-14] MEDS: PANTOPRAZOLE 40 MG TABLET PO (09:18)
[2024-11-14] MEDS: PRIMIDONE 50 MG TABLET PO (09:18)
[2024-11-14] MEDS: hydrOXYzine HCL 25 MG TABLET PO (09:19)
[2024-11-14] MEDS: HYDROcodone/acetaminophen (*CRX) 5-325 MG TABLET 1 TAB PO ×3 (09:27→17:52)
--- NOTE | 2024-11-14 10:59 | PM.IMPN ---
Progress Note: A&P Assessment and Plan (1) Frequent falls: Code(s): R29.6 - Repeated falls Status: Acute Assessment and Plan: Head CT negative Cervical spine CT negative for any acute findings Chest CT negative Continue fall precautions Continue PT and OT Awaiting transfer to [facility]--likely discharge tomorrow (2) Anemia: Qualifiers: Anemia type: unspecified type Qualified Code(s): D64.9 - Anemia, unspecified Code(s): D64.9 - Anemia, unspecified Status: Acute Assessment and Plan: Initial hemoglobin 6.2, now up to 8.7 Patient received 2 units PRBC Iron 22, ferritin 8.10 Patient was given 200 mg Venofer and started on p.o. iron tablet Occult blood negative Has known vitamin B12 deficiency Transfuse if hemoglobin less than 7.0 (3) Type 2 diabetes mellitus: Qualifiers: Diabetes mellitus complication status: without complication Diabetes mellitus nursing home insulin use: without intermediate card tender use Qualified Code(s): E11.9 - Type 2 diabetes mellitus without complications Code(s): E11.9 - Type 2 diabetes mellitus without complications Status: Chronic Assessment and Plan: Blood sugars ranging 80-115 Hgb A1C 5.7 Accu checks AC/HS Moderate dose SSI ordered hypoglycemic protocol in place Diabetic diet ordered (4) Hypertension: Qualifiers: Hypertension type: essential hypertension Qualified Code(s): I10 - Essential (primary) hypertension Code(s): I10 - Essential (primary) hypertension Status: Chronic Assessment and Plan: Blood pressure ranging 130/49 to 156/54 Continue losartan, hydralazine, amlodipine, Imdur, metoprolol Time Spent With Patient Time with patient: 25 - 35 minutes Subjective Date/time seen: 11/14/24 10:59 Interval history: Interval history: This is a 78-year-old female with a significant past medical history of osteoporosis, rheumatoid arthritis, diabetes, KIANNA, hypertension, anxiety, depression, anemia, emphysema, seizures, GERD, psoriasis, hyperlipidemia, vitamin B12 deficiency who presented to the hospital on 11/10/2024 for evaluation after a ground level fall. Workup in the hospital included a head CT which was negative for any acute intracranial hemorrhage or suspicious mass-effect. Cervical spine CT which was negative for fracture, severe cervical spondylosis. Chest CT was negative for any acute findings. Abdomen/pelvis CT showed possible cystitis otherwise no acute abdominal findings. Initial labs showed a normal white blood cell count of 7.4, hemoglobin 6.3, hematocrit 21.6, potassium 3.3, blood sugars ranging 121-133, hemoglobin A1c 5.7, iron 22, ferritin 8.10, alkaline phosphate 129, negative troponin, proBNP 1160, vitamin B12 287, folate greater than 20, TSH was normal at 2.820. UA was obtained and was negative. EKG showed sinus rhythm with left ventricular hypertrophy with a rate of 69, QTC 452. PT and OT were ordered and they are recommending additional rehab. Awaiting placement to [facility]. Patient was given 2 units of PRBC and iron infusion. Subjective: Patient denies new complaints today. Labs reviewed. Review of Systems Review of Systems: All systems reviewed & are unremarkable except as noted in HPI and below Exam Narrative: General: In no acute distress, well nourished Head: atraumatic, no encephalopathy Eyes: PERRLA, sclera clear ENT: moist mucous membranes, nasal passages clear Neck: supple, no JVD, no adenopathy, trachea midline Cardiac: Normal S1 and S2. No murmur, gallops or friction rubs, peripheral pulses intact. Respiratory: Lungs clear to auscultation, no adventitious lung sounds, currently on room air Gastrointestinal: soft, non-distended, non-tender, normoactive bowel sounds. : voiding without difficulty. Extremities: moves all extremities well, no edema Skin: clean, dry, intact. No wounds or lesions. Neuro: Alert and oriented x4, cranial nerves intact, no neuro deficits. Psych: normal mood, normal affect, interactive Objective Data Vital Signs Vital Signs: Vital Signs - 24 hr 11/13/24 12:22 11/13/24 14:00 11/13/24 21:05 Temperature 98.0 F Pulse Rate 65 65 Respiratory Rate 18 18 Blood Pressure 156/54 H Pulse Oximetry 93 92 92 Oxygen Delivery Room Air Room Air 11/13/24 22:00 11/14/24 06:00 11/14/24 09:15 Temperature 97.0 F L 98.9 F Pulse Rate 65 60 60 Respiratory Rate 18 18 Blood Pressure 152/53 H 130/49 L Pulse Oximetry 94 91 Oxygen Delivery Intake/Output Intake/Output: Intake & Output 11/11/24 11/12/24 11/13/24 11/14/24 23:59 23:59 23:59 23:59 Intake Total 2950 1280 720 180 Output Total 1999 400 Balance 950 1280 720 -220 Meds/Results Medications: Active Medications Generic Name Dose Route Start Last Admin Trade Name Nikhilq PRN Reason Stop Dose Admin Acetaminophen 500 mg 11/10/24 22:38 11/13/24 09:34 Acetaminophen 500 Mg Tablet PO 500 mg BID PRN Administration PAIN RATED 1-3 Hydrocodone Bitart/Acetaminophen 1 tab 11/10/24 18:23 11/14/24 09:27 Hydrocodone/Acetaminophen (*Crx) 5-325 Mg Tablet PO 1 tab Q4H PRN Administration Pain Rated 4-6 Amlodipine Besylate 5 mg 11/10/24 22:55 11/13/24 21:04 Amlodipine Besylate 5 Mg Tablet PO 5 mg HS DORYS Administration Atorvastatin Calcium 40 mg 11/11/24 09:00 11/14/24 09:17 Atorvastatin 40 Mg Tablet PO 40 mg DAILY DORYS Administration Clopidogrel Bisulfate 75 mg 11/11/24 09:00 11/14/24 09:17 Clopidogrel Bisulfate 75 Mg Tablet PO 75 mg DAILY DORYS Administration Dextrose 12.5 gm 11/10/24 19:57 Dextrose 50% 25 Gm/50 Ml Syringe IV PUSH PRN PRN Hypoglycemia Protocol Docusate Sodium 100 mg 11/11/24 09:00 11/14/24 09:15 Docusate Sodium 100 Mg Capsule PO 100 mg BID DORYS Administration Duloxetine HCl 120 mg 11/11/24 09:00 11/14/24 09:18 Duloxetine Hcl 60 Mg Capsule.Dr PO 120 mg DAILY DORYS Administration Ferrous Sulfate 325 mg 11/14/24 09:00 11/14/24 09:15 Ferrous Sulfate [address] PO 325 mg DAILY DORYS Administration Folic Acid 1 mg 11/11/24 09:00 11/14/24 09:17 Folic Acid 1 Mg Tablet PO 1 mg DAILY DORYS Administration Gabapentin 600 mg 11/10/24 22:55 11/14/24 09:17 Gabapentin 300 Mg Capsule PO 600 mg BID DORYS Administration Glucagon 1 mg 11/10/24 19:57 Glucagon For Inj 1 Mg Vial IM PRN PRN Hypoglycemia Protocol Glucose 15 gm 11/10/24 19:57 Glucose Oral Gel 15 Gm Of Glucse In 37.5 Gm Tube PO PRN PRN Hypoglycemia Protocol Hydralazine HCl 25 mg 11/10/24 22:40 11/14/24 09:17 Hydralazine Hcl 25 Mg Tablet PO 25 mg Q12HR DORYS Administration Hydroxyzine HCl 25 mg 11/11/24 09:00 11/14/24 09:19 Hydroxyzine Hcl 25 Mg Tablet PO 25 mg DAILY DORYS Administration Dextrose 1,000 mls @ 100 mls/hr 11/10/24 19:57 Dextrose 5% 1,000 Ml IVPB PRN PRN Hypoglycemia Protocol Insulin Aspart 3 - 6 units 11/11/24 08:00 11/14/24 09:29 Insulin Aspart (*Bkc) 100 Units/Ml SUB-Q Not Given TIDWM COUNT INCLUDES THE [facility] Protocol Isosorbide Mononitrate 15 mg 11/11/24 09:00 11/14/24 09:15 Isosorbide Mononitrate 15 Mg Tab.Er.24h PO 15 mg DAILY DORYS Administration Lamotrigine 75 mg 11/10/24 22:55 11/14/24 09:17 Lamotrigine 25 Mg Tablet PO 75 mg BID DORYS Administration Lorazepam 0.5 mg 11/10/24 22:38 11/12/24 20:18 Lorazepam (*Crx) 0.5 Mg Tablet PO 0.5 mg TID PRN Administration anxiety Losartan Potassium 100 mg 11/11/24 09:00 11/14/24 09:15 Losartan Potassium 100 Mg Tablet PO 100 mg DAILY DORYS Administration Metoprolol Succinate 50 mg 11/11/24 09:00 11/14/24 09:15 Metoprolol Succinate Ext Rel 50 Mg Tabcr PO 50 mg DAILY DORYS Administration Miscellaneous Information 1 each 11/11/24 00:01 Hold Home Tramadol? Pt Has [place] For Pain Rated 4-6 XX 12/11/24 00:00 CLARIFY COUNT INCLUDES THE [facility] Multivitamins/Minerals 2 tablet 11/11/24 09:00 11/14/24 09:17 Opti-Gen Tab PO 2 tablet DAILY COUNT INCLUDES THE [facility] Administration Ondansetron HCl 4 mg 11/10/24 18:23 Ondansetron Inj 4 Mg/2 Ml Vial IV PUSH Q4H PRN Nausea Pantoprazole Sodium 40 mg 11/11/24 09:00 11/14/24 09:18 Pantoprazole 40 Mg Tablet PO 40 mg DAILY DORYS Administration Pregabalin 50 mg 11/10/24 22:40 11/14/24 06:13 Pregabalin (*Crx) 50 Mg Capsule PO 50 mg Q8HR DORYS Administration Primidone 50 mg 11/11/24 09:00 11/14/24 09:18 Primidone 50 Mg Tablet PO 50 mg DAILY DORYS Administration Tramadol HCl 50 mg 11/10/24 22:38 Tramadol Hcl (*Crx) 50 Mg Tablet PO Q6H PRN pain Trazodone HCl 100 mg 11/10/24 22:55 11/13/24 21:04 Trazodone Hcl 50 Mg Tablet PO 100 mg HS DORYS Administration Radiology Results: ITS Impressions Head CT 11/10/24 13:37 Impression: No acute intracranial hemorrhage or suspicious mass effect. Cervical Spine CT 11/10/24 13:39 IMPRESSION: 1. No fracture 2. Severe cervical spondylosis. Chest CT 11/10/24 13:40 IMPRESSION: No acute findings within the chest, as detailed above. Abdomen/Pelvis CT 11/10/24 17:43 IMPRESSION: Possible cystitis. Otherwise no acute abdominopelvic process detected. Labs Labs: Laboratory Results - last 24 hr 11/13/24 11/13/24 11/13/24 11:05 16:45 22:04 WBC RBC Hgb Hct MCV MCH MCHC RDW Plt Count MPV Immature Gran % (Auto) Neut % (Auto) Lymph % (Auto) [place] % (Auto) Eos % (Auto) Baso % (Auto) Lymph # (Auto) [place] # (Auto) Eos # (Auto) Baso # (Auto) Abs Immat Gran (auto) Absolute Neuts (auto) Absolute Nucleated RBC Nucleated RBC % Sodium Potassium Chloride Carbon Dioxide Anion Gap BUN Creatinine Estim Creat Clear Calc Estimated GFR Glucose POC Capillary Glucose 138 H 196 H 80 Calcium Magnesium Total Bilirubin AST ALT Alkaline Phosphatase Total Protein Albumin 11/14/24 11/14/24 06:19 07:47 WBC 7.9 RBC 3.62 L Hgb 8.7 L Hct 28.7 L MCV 79.3 L MCH 24.0 L MCHC 30.3 L RDW 20.1 H Plt Count 266 MPV 9.9 Immature Gran % (Auto) 0.5 Neut % (Auto) 65.3 Lymph % (Auto) 21.7 [place] % (Auto) 9.8 H Eos % (Auto) 2.4 Baso % (Auto) 0.3 Lymph # (Auto) 1.70 [place] # (Auto) 0.8 H Eos # (Auto) 0.2 Baso # (Auto) 0.0 Abs Immat Gran (auto) 0.04 H Absolute Neuts (auto) 5.1 Absolute Nucleated RBC 0.000 Nucleated RBC % 0.0 Sodium 137 Potassium 3.6 Chloride 103 Carbon Dioxide 27 Anion Gap 7 BUN 11 Creatinine 0.54 L Estim Creat Clear Calc 65 Estimated GFR > 60 Glucose 99 POC Capillary Glucose 115 H Calcium 9.0 Magnesium 2.1 Total Bilirubin 0.4 AST 15 ALT 9 Alkaline Phosphatase 116 Total Protein 6.0 L Albumin 3.2 L Quality VTE Prophylaxis VTE prophylaxis: mechanical ordered
[2024-11-14 11:43] LABS: Glucose Point of Care 115 mg/dl (65-105)
[2024-11-14] MEDS: LORazepam (*CRX) 0.5 MG TABLET PO ×2 (12:26→17:52)
[2024-11-14 13:00] VITALS: BMI 10.0
[2024-11-14 14:00] VITALS: BP 118/44; PULSE 61; RESP 16; TEMP 36.8; O2SAT 97
[2024-11-14 16:27] LABS: Glucose Point of Care 86 mg/dl (65-105)
[2024-11-14 20:40] VITALS: PULSE 61; RESP 18; O2SAT 95
[2024-11-14] MEDS: traZODone HCL 50 MG TABLET 100 MG PO (20:43)
[2024-11-14] MEDS: amLODIPine BESYLATE 5 MG TABLET PO (20:43)
[2024-11-14 21:13] LABS: Glucose Point of Care 131 mg/dl (65-105)
[2024-11-14 21:26] VITALS: BP 133/45; PULSE 61; RESP 18; TEMP 36.3; O2SAT 95
[2024-11-15] MEDS: PREGABALIN (*CRX) 50 MG CAPSULE PO ×2 (05:38→16:23)
[2024-11-15 05:40] VITALS: BP 132/49; PULSE 62; RESP 18; TEMP 36.4; O2SAT 96
--- NOTE | 2024-11-15 07:38 | PM.DS ---
DS: Admitting Diagnosis Discharge Date 11/15/24 Admitting Diagnosis Anemia Frequent falls Type 2 DM hypertension DS: Discharge Diagnosis Discharge Diagnosis (1) Frequent falls: Code(s): R29.6 - Repeated falls Status: Acute (2) Anemia: Qualifiers: Anemia type: unspecified type Qualified Code(s): D64.9 - Anemia, unspecified Code(s): D64.9 - Anemia, unspecified Status: Acute (3) Type 2 diabetes mellitus: Qualifiers: Diabetes mellitus complication status: without complication Diabetes mellitus tank terminal gauger insulin use: without tank terminal gauger use Qualified Code(s): E11.9 - Type 2 diabetes mellitus without complications Code(s): E11.9 - Type 2 diabetes mellitus without complications Status: Chronic (4) Hypertension: Qualifiers: Hypertension type: essential hypertension Qualified Code(s): I10 - Essential (primary) hypertension Code(s): I10 - Essential (primary) hypertension Status: Chronic DS: Summary Hospital Course Reason for hospitalization: Anemia Frequent falls Type 2 DM hypertension Hospital Course: This is a 78-year-old female with a significant past medical history of osteoporosis, rheumatoid arthritis, diabetes, KIANNA, hypertension, anxiety, depression, anemia, emphysema, seizures, GERD, psoriasis, hyperlipidemia, vitamin B12 deficiency who presented to the hospital on 11/10/2024 for evaluation after a ground level fall. Workup in the hospital included a head CT which was negative for any acute intracranial hemorrhage or suspicious mass-effect. Cervical spine CT which was negative for fracture, severe cervical spondylosis. Chest CT was negative for any acute findings. Abdomen/pelvis CT showed possible cystitis otherwise no acute abdominal findings. Initial labs showed a normal white blood cell count of 7.4, hemoglobin 6.3, hematocrit 21.6, potassium 3.3, blood sugars ranging 121-133, hemoglobin A1c 5.7, iron 22, ferritin 8.10, alkaline phosphate 129, negative troponin, proBNP 1160, vitamin B12 287, folate greater than 20, TSH was normal at 2.820. UA was obtained and was negative. EKG showed sinus rhythm with left ventricular hypertrophy with a rate of 69, QTC 452. PT and OT were ordered and they are recommending additional rehab. Patient was given 2 units of PRBC and iron infusion. Patient is stable for discharge today to swing bed program at [facility]. She will continue with ferrous sulfate for her anemia. Hgb stable. Final diagnosis: physical deconditioning, anemia Status at Discharge Cognitive/behavioral status at discharge: Alert and oriented x3 Functional status at discharge: uses cane/walker Overall status at discharge: patient is progressing back to baseline Time Spent with Patient Time attestation: Total time spent providing and/or coordinating discharge services: Time spent: Greater than 30 minutes Exam Narrative: General: In no acute distress, well nourished Cardiac: Normal S1 and S2. No murmur, gallops or friction rubs, peripheral pulses intact. Respiratory: Lungs clear to auscultation, no adventitious lung sounds, currently on room air Gastrointestinal: soft, non-distended, non-tender, normoactive bowel sounds. : voiding without difficulty. Neuro: Alert and oriented x4 DS: Data Data Completed and Pending Completed studies during hospitalization: Head CT Cervical spine CT Chest CT Abdomen/Pelvis CT Pending studies at discharge: None Labs on day of discharge: Labs from last 24 hours 11/14/24 11/14/24 11/14/24 20:38 16:16 11:39 POC Capillary Glucose 131 H 86 115 H 11/14/24 07:47 POC Capillary Glucose 115 H Procedures/Treatments: None Discharge Plan Discharge Attending physician on discharge: Darshana Allison Discharging Clinician: Linda Padilla Anticipated Discharge Date/Time: 11/15/24 07:32 Patient Disposition: SNF Activity: as tolerated Diet: as tolerated and heart healthy Discharge Instructions: Discharge to swing bed program at [facility] Continue ferrous sulfate Patient Instructions: Antibiotic Form, Anemia (DC) Patient Language: Yi Stand Alone Forms: General Discharge Information Follow-up/Referrals: Enid Montalvo, [facility] RN-C [Primary Care Provider] - 2 Weeks Discharge Medications: New hydrocodone-acetaminophen 5-325 mg Tablet 1 tablet PO Q4H PRN (Reason: Pain Rated 4-6) Qty: 10 0RF ferrous sulfate 325 mg (65 mg iron) Tablet,Delayed Release (Dr/Ec) 325 mg PO DAILY Qty: 30 0RF Continued Cosentyx Pen 150 mg/mL Pen Injector 300 mg SUBCUT [id number] Patient Comments: DOSE DUE 07/30 Rx Instructions: Saturday tramadol 50 mg tablet 50 mg PO Q6H PRN (Reason: pain) Qty: 20 0RF pantoprazole 40 mg tablet,delayed release (DR/EC) 40 mg PO DAILY Atorvastatin [Lipitor] 40 mg PO DAILY Qty: 30 0RF isosorbide mononitrate 30 mg tablet extended release 24 hr 15 mg PO DAILY Qty: 30 0RF primidone 50 mg tablet 50 mg PO DAILY lamotrigine 25 mg tablet 75 mg PO BID metoprolol succinate 50 mg tablet extended release 24 hr 50 mg PO DAILY clopidogrel 75 mg tablet 75 mg PO DAILY hydroxyzine HCl 25 mg tablet 25 mg PO DAILY duloxetine 60 mg capsule,delayed release(DR/EC) 120 mg PO DAILY Ocuvite with Lutein 300 mcg-200 mg-27 mg-2 mg tablet 2 tablet PO DAILY pregabalin 50 mg capsule 50 mg PO Q8H hydralazine 25 mg tablet 25 mg PO Q12H amlodipine [Norvasc] 5 mg tablet 5 mg PO HS losartan 100 mg tablet 100 mg PO DAILY Qty: 90 3RF trazodone 50 mg tablet 100 mg PO HS Qty: 180 1RF lorazepam 0.5 mg tablet 0.5 mg PO TID PRN (Reason: anxiety) Qty: 90 0RF hydrocodone-acetaminophen 5-325 mg tablet 1 tablet PO QHS PRN (Reason: pain) Qty: 14 0RF docusate sodium 100 mg Capsule 100 mg PO BID Qty: 60 0RF folic acid 1 mg Tablet 1 mg PO DAILY Qty: 30 0RF acetaminophen 500 mg Tablet 500 mg PO BID PRN (Reason: pain) Qty: 30 0RF gabapentin 300 mg capsule 600 mg PO BID Qty: 270 1RF Date of admission: 11/12/24 13:32 Primary Care Provider: Enid Montalvo Admitting Provider: Eron Mckay Attending physician on admission: Linda Padilla Condition: Improved Quality VTE Prophylaxis VTE prophylaxis: mechanical ordered Hospitalist MIPS Heart Failure (Exclusion) Patient has history of Heart Transplant or Left Ventricular Assistive Device?: No IF YES, STOP HERE Heart Failure (Qualifier) Patient has current or prior documentation of LVEF less than or equal to 40%, or mod/servere depressed LVSF?: No IF NO, STOP HERE
[2024-11-15 08:00] VITALS: PULSE 62; RESP 18; O2SAT 96
[2024-11-15 08:29] LABS: Glucose Point of Care 113 mg/dl (65-105)
[2024-11-15 09:10] LABS: Basophils Percent Auto 0.5 % (0.2-1.2); Eosinophils Absolute Auto 0.2 K/mm3 (0-0.3); Eosinophils Percent Auto 2.1 % (0-4.4); Hematocrit 30.8 % (37.0-47.0); Hemoglobin 9.2 g/dL (12.0-15.0); Immature Granulocyte Absolute 0.03 K/mm3 (0.00-0.031); Immature Granulocyte Percent A 0.4 % (0-0.5); Lymphocytes Percent Auto 18.2 % (18.3-44.2); Mean Corpuscular HGB Conc 29.9 g/dl (32-36); Mean Corpuscular Hemoglobin 23.9 pg (26-34); Mean Platelet Volume 10.2 fl (7.4-10.4); Monocytes Absolute Auto 0.5 K/mm3 (0.1-0.6); Monocytes Percent Auto 6.6 % (2.6-8.5); Neutrophils Absolute Auto 5.6 K/mm3 (1.3-6.7); Neutrophils Percent Auto 72.2 % (45.5-73.1); Platelet Count Result 271 k/mm3 (150-375); Red Blood Count 3.85 M/mm3 (4.2-5.4); Red Cell Distribution Width 20.8 % (11.5-14.5); White Blood Count 7.7 K/mm3 (4.5-10.0)
[2024-11-15 09:14] LABS: Alanine Aminotransferase 9 U/L (6-35); Albumin Level 3.5 g/dL (3.5-5.1); Alkaline Phosphatase 121 U/L (38-126); Anion Gap 6 mmol/L (4-12); Aspartate Amino Transferase 18 U/L (14-36); Bilirubin,Total 0.3 mg/dL (0.2-1.3); Blood Urea Nitrogen 9 mg/dL (7-17); Carbon Dioxide 30 mmol/L (22-30); Chloride 103 mmol/L (98-107); Estimated CRCL calculation 65 ml/min; Estimated Glomerular Filt Rate > 60; Glucose 98 mg/dL (65-110); Sodium 139 mmol/L (137-145)
[2024-11-15] MEDS: FERROUS SULFATE 325 MG TABLET DR PO (09:17)
[2024-11-15] MEDS: FOLIC ACID 1 MG TABLET PO (09:17)
[2024-11-15] MEDS: DULoxetine HCL 60 MG CAPSULE.DR 120 MG PO (09:17)
[2024-11-15] MEDS: lamoTRIgine 25 MG TABLET 75 MG PO ×2 (09:18→16:24)
[2024-11-15] MEDS: LOSARTAN POTASSIUM 100 MG TABLET PO (09:19)
[2024-11-15] MEDS: ATORVASTATIN 40 MG TABLET PO (09:19)
[2024-11-15] MEDS: OPTI-GEN TAB 2 TABLET PO (09:19)
[2024-11-15] MEDS: CLOPIDOGREL BISULFATE 75 MG TABLET PO (09:19)
[2024-11-15] MEDS: ISOSORBIDE MONONITRATE 15 MG TAB.ER.24H PO (09:19)
[2024-11-15] MEDS: DOCUSATE SODIUM 100 MG CAPSULE PO ×2 (09:19→16:23)
[2024-11-15] MEDS: hydrALAZINE HCL 25 MG TABLET PO (09:20)
[2024-11-15] MEDS: GABAPENTIN 300 MG CAPSULE 600 MG PO ×2 (09:20→16:23)
[2024-11-15] MEDS: hydrOXYzine HCL 25 MG TABLET PO (09:21)
[2024-11-15] MEDS: METOPROLOL SUCCINATE EXT REL 50 MG TABCR PO (09:21)
[2024-11-15] MEDS: HYDROcodone/acetaminophen (*CRX) 5-325 MG TABLET 1 TAB PO ×2 (09:24→16:24)
[2024-11-15] MEDS: PANTOPRAZOLE 40 MG TABLET PO (09:25)
[2024-11-15] MEDS: PRIMIDONE 50 MG TABLET PO (09:25)
[2024-11-15 10:16] LABS: Anisocytosis 1+; Hypochromasia 2+; Platelet Estimate Adequate (Adequate); Schistocytes None Seen
[2024-11-15 11:54] LABS: Glucose Point of Care 145 mg/dl (65-105)
[2024-11-15 14:00] VITALS: BP 135/49; PULSE 61; RESP 18; O2SAT 94
[2024-11-15 16:12] LABS: Glucose Point of Care 141 mg/dl (65-105)
== END 2024-11-15 17:15 | disposition swing bed (61) | DRG 812 ==
LOC: ANHED 18:17 → ANH3MEDSUR 20:20
PROVIDERS: Nurse Practitioner Family; Physician Assistant; Student in an Organized Health Care Education/Training Program; Admitting Provider General Practice; Emergency Provider Emergency Medicine; PCP Nurse Practitioner Family; Visit Provider Nurse Practitioner Acute Care
DX: D51.9 Vitamin B12 deficiency anemia, unspecified (principal); R29.6 Repeated falls; R07.89 Other chest pain; F17.210 Nicotine dependence, cigarettes, uncomplicated; I10 Essential (primary) hypertension; K21.9 Gastro-esophageal reflux disease without esophagitis; E78.2 Mixed hyperlipidemia; K76.0 Fatty (change of) liver, not elsewhere classified; E11.42 Type 2 diabetes mellitus with diabetic polyneuropathy; H35.30 Unspecified macular degeneration; L40.9 Psoriasis, unspecified; G47.33 Obstructive sleep apnea (adult) (pediatric); M81.0 Age-related osteoporosis without current pathological fracture; M06.00 Rheumatoid arthritis without rheumatoid factor, unspecified site; F31.9 Bipolar disorder, unspecified; F41.8 Other specified anxiety disorders; M45.0 Ankylosing spondylitis of multiple sites in spine; Z85.828 Personal history of other malignant neoplasm of skin; Z86.73 Personal history of transient ischemic attack (TIA), and cerebral infarction without residual deficits; Z90.49 Acquired absence of other specified parts of digestive tract
CPT/HCPCS: 36415; 36430; 70450; 71250; 72125; 74177; 80053; 81003; 82607; 82728; 82746; 82948; 83036; 83540; 83550; 83735; 83880; 84443; 84484; 85014; 85018; 85025; 86850; 86900; 86901; 86923; 93005; 96361; 96374; 96375; 97110; 97116; 97161; 97166; 97530; 97535; 99285; A9270; G0378; J1756; J2270; J7050; P9016; Q9967

== ENCOUNTER 2024-11-15 17:59 | Inpatient (IN) | payer MEDICARE, OTHER, SELFPAY ==
--- OUTSIDE RECORDS SUMMARY | 2024-11-15 18:06 | XMS_ITS | Clinical Summary ---
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 Name Role Phone Unavailable Primary Care Provider Unavailabl e Social History Tobacco Use Types Packs/Day Years Used Date Smoking Tobacco: Never Assessed Comments Unknown Sex and Gender Information Value Date Recorded Sex Assigned at Not on file Legal Sex Female 4:14 AM [employer] Gender Identity Not on file Sexual Orientation Not on file Plan of Treatment Health Maintenance Due Date Last Done Comments DTAP/TDAP/TD VACCINES (1 - Tdap) 1964 PNEUMOCOCCAL VACCINE 50+ YEARS (1 of 1 - PCV) 11/15/18 96 ZOSTER VACCINE (1 of 2) 11/16/1995 OSTEOPOROSIS SCREENING 2010 RSV VACCINE (60+ or ) (1 - 1-dose 75+ series) 2020 INFLUENZA VACCINE (#1) 2024
--- OUTSIDE RECORDS SUMMARY | 2024-11-15 18:06 | XMS_ITS | Encounter Summary ---
Author Organization [facility] Address [address] [place] [address] Care Team Providers Care Real Estate Office Manager Name Role Phone Akin Coyne MD Primary Care Provider [phone] Adan Umana MD Unavailable [phone] Encounter Details Date Type Department Care Team (Late st Contact Info) Description 01/16/2020 Lab Requisition [facility] [address] [place] [address] Dg Soares MD Social History Tobacco Use [...] Not detected, Invalid 01/17/2020 1:49 PM CDT [facility] Microbiology SPECIMEN FROM NASOPHARYNGEAL STRUCTURE / Unknown Collection / Unknown 01/16/2020 11:20 AM CDT 01/16/2020 8:06 PM CDT Narrative [facility] - 01/17/2020 1:49 PM CDT This Real Time RT-PCR assay was developed and its performance characteristics determined by [facility]. This test has been authorized [...] Dg Soares MD LAB - MICROBIOLOGY ORDERABLES [facility] [address] [place], [place] [address] [phone] documented in this encounter Visit Diagnoses Not on filedocumented in this encounter Care Teams Real Estate Office Manager Relationship Specialty Start Date End Date Akin Coyne MD [address] [place] [id number] PCP - General Family Medicine 07/19/15 [place] [id number] [address] Physical Medicine and Rehabilitation 01/23/18 documented as of this encounter
--- OUTSIDE RECORDS SUMMARY | 2024-11-15 18:07 | XMS_ITS | Clinical Summary ---
Author Organization [facility] Address [address] [place] [id number] Care Team Providers Care Collections Clerk Name Role Phone Unavailable Primary Care Provider [...]
--- OUTSIDE RECORDS SUMMARY | 2024-11-15 18:07 | XMS_ITS | Clinical Summary ---
Author Organization Unknown Care Team Providers Care Junior Architect Name Role Phone IGGY BOOKER, ASHLEY Unavailable Unavailabl e JOSHUA PT, BETSY Unavailable Unavailable MARCELO OT, ABNER Unavailable Unavailable CHELA HVAC COMMERCIAL SALESPERSON, [place] Unavailable Unavailabl e LUPCHO PRESS TENDER SMOKE SIGNAL/TAMAYO, OSBALDO Unavailable Unavaila mariana RIGGS, KYLE Unavailable Unavailable Payers Payer Name Policy Type Policy Number Effective Date Expira tion Date MEDICARE.[facility] [id number] Problems Condition Name Condition Details Condition Category [...] CIGARETTES, UNCOMPLICATE D Active 09-16 00:00: 00 NIPPLE MAKER (CURRENT) USE OF ANTITHROMBOT ICS/ANTIPLAT ELETS Active 09-16 00:00: 00 PRSNL HX OF TIA (TIA), 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 09-16 00:00: 00 HISTORY OF FALLING Active 09-16 00:00: 00 LONG-TERM (CURRENT) USE OF ORAL HYPOGLYCEMIC DRUGS Active [...] 0-11 00:00: 00 09-14 23:59 :00 No [id number] NEEDED FOR ANXIETY 1 tablet DAILY 1 tablet DAILY (route: oral) Med Classific ation: Central Nervous System Agents pantoprazol e 40 mg tablet,michael yed release 8-02 00:00: 00 09-14 23:59 :00 No [id number] STOMACH 1 tablet DAILY 1 tablet DAILY (route: oral) Med Classific ation: Gastroint estinal Therapy Agents azathioprin e 50 mg tablet 2020-09 0-07 00:00: 00 09-14 23:59 :00 No [id number] ORGAN REJECTION, PAIN 2 tablet DAILY 2 tablet DAILY (route: oral) Med Classific ation: Immunosup pressive Agents amlodipine 5 mg tablet 9-21 00:00: 00 09-14 23:59 :00 No [id number] HTN 1 tablet DAILY 1 tablet DAILY (route: oral) Med Classific ation: Cardiovas cular Therapy Agents trazodone 50 mg tablet 1-14 00:00: 00 09-14 23:59 :00 No [id number] DEPRESSION 2 tablet BEDTIME 2 tablet BEDTIME (route: oral) Med Classific ation: Central Nervous System Agents metoprolol succinate ER 100 mg tablet,exte nded release 24 hr 8-11 00:00: 00 09-14 23:59 :00 No [id number] HTN 1 tablet DAILY 1 tablet DAILY (route: oral) Med Classific ation: Cardiovas cular Therapy Agents gabapentin 300 mg capsule 9-04 00:00: 00 09-14 23:59 :00 No [id number] PAIN 1 capsule 3 TIMES DAILY 1 capsule 3 TIMES DAILY (route: oral) Med Classific ation: Central Nervous System Agents tizanidine 2 mg tablet 9-15 00:00: 00 09-14 23:59 :00 No [id number] MUSCLE SPASM 1 tablet BEDTIME 1 tablet BEDTIME (route: oral) Med Classific ation: Locomotor System gabapentin 300 mg capsule 2020-09 0-06 00:00: 00 07-18 00:00 :00 No [id number] Per instruc tions Per instructio ns (route: oral) Med Classific ation: Central Nervous System Agents lamotrigine 100 mg tablet 9-04 00:00: 00 09-14 23:59 :00 No [id number] SEIZURE 1 tablet 2 TIMES DAILY 1 tablet 2 TIMES DAILY (route: oral) Med Classific ation: Central Nervous System Agents duloxetine 60 mg capsule,del ayed release 9-04 00:00: 00 09-14 23:59 :00 No [id number] MOOD, DEPRESSION 2 capsule DAILY 2 capsule DAILY (route: oral) Med Classific ation: Central Nervous System Agents methylpredn isolone 4 mg tablets in a dose pack 2020-09 0-31 00:00: 00 07-18 00:00 :00 No [id number] Per instruc tions Per instructio ns (route: oral) Med Classific ation: Endocrine BD Tuberculin Syringe 1 mL 25 gauge x 5/8 9-09 00:00: 00 07-18 00:00 :00 No [id number] Per instruc tions Per instructio ns (route: miscellane ous) Med Classific ation: Medical Supplies and Durable Medical Equipment (DME) albuterol sulfate 1.25 mg/3 mL solution for nebulizatio n 2020-09 00:00: 00 09-29 23:59 :00 No [id number] NEEDED FOR SOB 3 mL DAILY 3 mL DAILY (route: inhalation ) Med Classific ation: Respirato ry Therapy Agents Aspirin Low Dose 81 mg tablet,michael yed release 2020-09 00:00: 00 09-14 23:59 :00 No [id number] BLOOD THINNER 1 tablet DAILY 1 tablet DAILY (route: oral) Med Classific ation: Hematolog ical Agents biotin 5,000 mcg disintegrat ing tablet 2020-09 00:00: 00 09-14 23:59 :00 No [id number] SUPPLEMENT 1 tablet DAILY 1 tablet DAILY (route: oral) Med Classific ation: Electroly te Balance-N utritiona l Products Centrum Silver 0.4 mg-300 mcg-250 mcg tablet 2020-09 00:00: 00 09-14 23:59 :00 No [id number] SUPPLEMENT 1 tablet DAILY 1 tablet DAILY (route: oral) Med Classific ation: Electroly te Balance-N utritiona l Products Cosentyx 150 mg/mL subcutaneou s syringe 2020-09 00:00: 00 09-14 23:59 :00 No [id number] ARTHRITIS 150 mg DIRECTED 150 mg DIRECTED (route: subcutaneo us) Med Classific ation: Dermatolo gical metformin 500 mg tablet 2020-09 00:00: 00 09-14 23:59 :00 No [id number] DIABETES MELLITUS 1 tablet DAILY 1 tablet DAILY (route: oral) Med Classific ation: Endocrine methylpredn isolone 4 mg tablets in a dose pack 2020-09 00:00: 07-22 23:59 :00 No [id number] ARTHRITIS Per instruc tions DIRECTED Per instructio ns DIRECTED (route: oral) Med Classific ation: Endocrine PreserVisio n AREDS-2 250 mg-90 mg-40 mg-1 mg capsule 2020-09 00:00: 00 09-14 23:59 :00 No [id number] SUPPLEMENT 1 capsule DAILY 1 capsule DAILY (route: oral) Med Classific ation: Alternati ve Therapy Tylenol Extra Strength 500 mg tablet 2020-09 00:00: 00 09-14 23:59 :00 No [id number] PAIN 2 tablet 3 TIMES DAILY 2 tablet 3 TIMES DAILY (route: oral) Med Classific ation: Analgesic , Anti-infl ammatory or Antipyret ic Vitamin D3 50 mcg (2,000 unit) capsule 2020-09 00:00: 00 09-14 23:59 :00 No [id number] SUPPLEMENT 1 capsule DAILY 1 capsule DAILY (route: oral) Med Classific ation: Electroly te Balance-N utritiona l Products Methylpred DP 4 mg tablets in a dose pack 2020-09 00:00: 00 09-29 23:59 :00 No [id number] TO REDUCE SYMPTOMS SUCH PAIN AND SWELLING 4 mg BEFORE MEALS 4 mg BEFORE MEALS (route: oral) Med Classific ation: Endocrine docusate sodium 100 mg capsule 09-22 00:00: 00 09-14 23:59 :00 No [id number] CONSTIPATIO N 1 capsule 2 TIMES DAILY 1 capsule 2 TIMES DAILY (route: oral) Med Classific ation: Gastroint estinal Therapy Agents Flonase Allergy Relief 50 mcg/actuati on nasal spray,suspe nsion 09-22 00:00: 00 09-14 23:59 :00 No [id number] NASAL CONGESTION, ALLERGIES 2 spray 2 TIMES DAILY 2 spray 2 TIMES DAILY (route: nasal) Med Classific ation: Respirato ry Therapy Agents prednisone 10 mg tablet 09-22 00:00: 00 10-04 23:59 :00 No [id number] STEROID 2 tablet DAILY 2 tablet DAILY (route: oral) Med Classific ation: Endocrine Vitamin C 500 mg tablet 09-22 00:00: 00 09-14 23:59 :00 No [id number] VITAMIN C 1 tablet DAILY 1 tablet DAILY (route: oral) Med Classific ation: Electroly te Balance-N utritiona l Products albuterol sulfate HFA 90 mcg/actuati on aerosol inhaler 09-22 00:00: 00 09-14 23:59 :00 No [id number] SHORTNESS OF BREATH. 2 puff EVERY 4 HOURS 2 puff EVERY 4 HOURS (route: inhalation ) Med Classific ation: Respirato ry Therapy Agents amlodipine 5 mg tablet 09-18 00:00: 00 Yes [id number] BLOOD PRESSURE 1 tablet DAILY 1 tablet DAILY (route: oral) Med Classific ation: Cardiovas cular Therapy Agents atorvastati n 40 mg tablet 09-18 00:00: 00 Yes [id number] CHOLESTEROL 1 tablet DAILY 1 tablet DAILY (route: oral) Med Classific ation: Cardiovas cular Therapy Agents clopidogrel 75 mg tablet 09-18 00:00: 00 Yes [id number] BLOOD THINNER 1 tablet DAILY 1 tablet DAILY (route: oral) Med Classific ation: Hematolog ical Agents Cosentyx 300 mg/2 Syringes (150 mg/mL) subcutaneou s 09-18 00:00: 00 Yes [id number] RHEUMATOID ARTHRITIS 2 mL EVERY OTHER WEEK 2 mL EVERY OTHER WEEK (route: subcutaneo ) Med Classific ation: Dermatolo gical Cymbalta 60 mg capsule,del ayed release 09-18 00:00: 00 Yes [id number] ANXIETY 2 capsule DAILY 2 capsule DAILY (route: oral) Med Classific ation: Central Nervous System Agents folic acid 1 mg tablet 09-18 00:00: 00 Yes [id number] SUPPLEMENT 1 tablet DAILY 1 tablet DAILY (route: oral) Med Classific ation: Electroly te Balance-N utritiona l Products gabapentin 300 mg capsule 09-18 00:00: 00 Yes [id number] SEIZURE 2 capsule 2 TIMES DAILY 2 capsule 2 TIMES DAILY (route: oral) Med Classific ation: Central Nervous System Agents hydralazine 10 mg tablet 09-18 00:00: 00 Yes [id number] BLOOD PRESSURE 1 tablet 2 TIMES DAILY 1 tablet 2 TIMES DAILY (route: oral) Med Classific ation: Cardiovas cular Therapy Agents hydrocodone 5 mg-acetamin ophen 325 mg tablet 09-18 00:00: 00 Yes [id number] NEEDED FOR PAIN 1 tablet EVERY 6 HOURS 1 tablet EVERY 6 HOURS (route: oral) Med Classific ation: Analgesic , Anti-infl ammatory or Antipyret ic hydroxyzine HCl 25 mg tablet 09-18 00:00: 00 Yes [id number] ALLERGIES 1 tablet DAILY 1 tablet DAILY (route: oral) Med Classific ation: Central Nervous System Agents I-James 300 mcg-200 mg-27 mg-2 mg tablet 09-18 00:00: 00 Yes [id number] SUPPLEMENT 2 tablet DAILY 2 tablet DAILY (route: oral) Med Classific ation: Electroly te Balance-N utritiona l Products isosorbide mononitrate ER 30 mg tablet,exte nded release 24 hr 09-18 00:00: 00 Yes [id number] BLOOD PRESSURE 0.5 tablet DAILY 0.5 tablet DAILY (route: oral) Med Classific ation: Cardiovas cular Therapy Agents Jardiance 10 mg tablet 09-18 00:00: 00 Yes [id number] DIABETES 1 tablet DAILY 1 tablet DAILY (route: oral) Med Classific ation: Endocrine lamotrigine 25 mg tablet 09-18 00:00: 00 Yes [id number] SEIZURE 3 tablet 2 TIMES DAILY 3 tablet 2 TIMES DAILY (route: oral) Med Classific ation: Central Nervous System Agents losartan 100 mg tablet 09-18 00:00: 00 Yes [id number] BLOOD PRESSURE 1 tablet DAILY 1 tablet DAILY (route: oral) Med Classific ation: Cardiovas cular Therapy Agents metoprolol succinate ER 50 mg tablet,exte nded release 24 hr 09-18 00:00: 00 Yes [id number] BLOOD PRESSURE 1 tablet DAILY 1 tablet DAILY (route: oral) Med Classific ation: Cardiovas cular Therapy Agents primidone 50 mg tablet 09-18 00:00: 00 Yes [id number] SEIZURE 1 tablet DAILY 1 tablet DAILY (route: oral) Med Classific ation: Central Nervous System Agents trazodone 100 mg tablet 09-18 00:00: 00 Yes [id number] MOOD 1 tablet BEDTIME 1 tablet BEDTIME [...] TO EVALUATE, OBSERVE / ASSESS, AND MONITOR, HVAC COMMERCIAL SALESPERSON TO OBSERVE AND MONITOR, PROVIDE SKILLED THERAPEUTIC INTERVENTION, ACTIVITY, EDUCATION, AND TRAINING TO ADDRESS; [code = AGENCY MAY PERFORM A RESUMPTION OF CARE VISIT FOLLOWING ANY HOSPITAL ADMISSION. PT TO EVALUATE, OBSERVE / ASSESS, AND MONITOR, HVAC COMMERCIAL SALESPERSON TO OBSERVE AND MONITOR, PROVIDE SKILLED THERAPEUTIC INTERVENTION, ACTIVITY, EDUCATION, AND TRAINING TO ADDRESS;] Future Scheduled Test PT / HVAC COMMERCIAL SALESPERSON T O EDUCATE ON HYPERTENSION SELF-MANAGEMENT [code = PT / HVAC COMMERCIAL SALESPERSON TO EDUCATE ON HYPERTENSION SELF-MANAGEMENT] Future Scheduled Test PT / HVAC COMMERCIAL SALESPERSON T O EDUCATE ON COPD SELF-MANAGEMENT [code = PT / HVAC COMMERCIAL SALESPERSON TO EDUCATE ON COPD SELF-MANAGEMENT] Future Scheduled Test PT / HVAC COMMERCIAL SALESPERSON T O EDUCATE ON DIABETES SELF- MANAGEMENT [code = PT / HVAC COMMERCIAL SALESPERSON TO EDUCATE ON DIABETES SELF- MANAGEMENT] Future Scheduled Test PT TO ASSE SS / HVAC COMMERCIAL SALESPERSON TO MONITOR FOR AND REPORT EARLY SIGNS OF ANTICOAGULANT TOXICITY TO THE PHYSICIAN AND/OR THE RN CLINICAL ELECTRICIAN CONSTRUCTOR SUPERVISOR FOR PHYSICIAN NOTIFICATION AND TO PROVIDE PATIENT/CAREGIVER EDUCATION ON ANTICOAGULANT THERAPY [code = PT TO ASSESS / HVAC COMMERCIAL SALESPERSON TO MONITOR FOR AND REPORT EARLY SIGNS OF ANTICOAGULANT TOXICITY TO THE PHYSICIAN AND/OR THE RN CLINICAL ELECTRICIAN CONSTRUCTOR SUPERVISOR FOR PHYSICIAN NOTIFICATION AND TO PROVIDE PATIENT/CAREGIVER EDUCATION ON ANTICOAGULANT THERAPY] Future Scheduled Test PT TO ASSE SS / HVAC COMMERCIAL SALESPERSON TO MONITOR CARDIO/RESPIRATORY SYSTEM; AND NOTIFY THE PHYSICIAN AND/OR THE RN CLINICAL ELECTRICIAN CONSTRUCTOR SUPERVISOR FOR PHYSICIAN NOTIFICATION FOR EARLY SIGNS AND SYMPTOMS OF EXACERBATION OR DETERIORATION. [code = PT TO ASSESS / HVAC COMMERCIAL SALESPERSON TO MONITOR CARDIO/RESPIRATORY SYSTEM; AND NOTIFY THE PHYSICIAN AND/OR THE RN CLINICAL ELECTRICIAN CONSTRUCTOR SUPERVISOR FOR PHYSICIAN NOTIFICATION FOR EARLY SIGNS AND SYMPTOMS OF EXACERBATION OR DETERIORATION.] Future Scheduled Test PT / HVAC COMMERCIAL SALESPERSON T O MONITOR AND EDUCATE ON OXYGEN SATURATION DURING ADLS/IADLS, NOTIFY PHYSICIAN AND/OR THE RN CLINICAL ELECTRICIAN CONSTRUCTOR SUPERVISOR FOR PHYSICIAN NOTIFICATION AND IF O2 SATS BELOW PHYSICIAN ORDERED PARAMETERS AFTER 10 MIN OF REST [code = PT / HVAC COMMERCIAL SALESPERSON TO MONITOR AND EDUCATE ON OXYGEN SATURATION DURING ADLS/IADLS, NOTIFY PHYSICIAN AND/OR THE RN CLINICAL ELECTRICIAN CONSTRUCTOR SUPERVISOR FOR PHYSICIAN NOTIFICATION AND IF O2 SATS BELOW PHYSICIAN ORDERED PARAMETERS AFTER 10 MIN OF REST] Future Scheduled Test PT / HVAC COMMERCIAL SALESPERSON T O MONITOR FOR HYPO/HYPERGLYCEMIA AND CONDUCT ROUTINE FOOT INSPECTIONS. RECORD PATIENT REPORTED BLOOD SUGAR LEVELS AND NOTIFY PHYSICIAN AND/OR THE RN CLINICAL ELECTRICIAN CONSTRUCTOR SUPERVISOR FOR PHYSICIAN NOTIFICATION IF BLOOD SUGAR LEVELS ARE OUTSIDE ORDERED PARAMETERS. TEACH PATIENT/CAREGIVER ON DAILY FOOT INSPECTIONS [code = PT / HVAC COMMERCIAL SALESPERSON TO MONITOR FOR HYPO/HYPERGLYCEMIA AND CONDUCT ROUTINE FOOT INSPECTIONS. RECORD PATIENT REPORTED BLOOD SUGAR LEVELS AND NOTIFY PHYSICIAN AND/OR THE RN CLINICAL ELECTRICIAN CONSTRUCTOR SUPERVISOR FOR PHYSICIAN NOTIFICATION IF BLOOD SUGAR LEVELS ARE OUTSIDE ORDERED PARAMETERS. TEACH PATIENT/CAREGIVER ON DAILY FOOT INSPECTIONS] Future Scheduled Test PT / HVAC COMMERCIAL SALESPERSON T O INSTRUCT PATIENT/CAREGIVER ON RISK FOR HOSPITALIZATION/EMERGENCY ROOM VISITS, TEACH SIGNS AND SYMPTOMS THAT PUT PATIENT AT RISK, WHEN TO NOTIFY NURSE/PHYSICIAN OF COMPLICATIONS/DECLINE, AND WHEN TO CALL 911. 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 MAY TEACH THE PATIENT FLOOR RECOVERY WHEN CLINICALLY APPROPRIATE [code = PT/HVAC COMMERCIAL SALESPERSON TO IDENTIFY FALL RISK FACTORS; EDUCATE THE PATIENT/CAREGIVER ON WAYS TO REDUCE FALL RISK FACTORS AND ESTABLISH HOME EXERCISE PROGRAM TO MINIMIZE FALL RISK. MAY TEACH THE PATIENT FLOOR RECOVERY WHEN CLINICALLY APPROPRIATE] Future Scheduled Test PT / HVAC COMMERCIAL SALESPERSON M AY EDUCATE ON PAIN MANAGEMENT CLINICALLY INDICATED, INCLUDING NON-PHARMACOLOGICAL PAIN REDUCTION TECHNIQUES. [code = PT / HVAC COMMERCIAL SALESPERSON MAY EDUCATE ON PAIN MANAGEMENT CLINICALLY INDICATED, INCLUDING NON-PHARMACOLOGICAL PAIN REDUCTION TECHNIQUES. ] Future Scheduled Test SIT TO/FRO M STAND TRANSFERS (PT/HVAC COMMERCIAL SALESPERSON) [code = SIT TO/FROM STAND TRANSFERS (PT/HVAC COMMERCIAL SALESPERSON)] Future Scheduled Test PT/HVAC COMMERCIAL SALESPERSON TO PROVIDE GAIT TRAINING FOR IMPROVED MOBILITY AND /OR TO NORMALIZE GAIT PATTERN [code = PT/HVAC COMMERCIAL SALESPERSON TO PROVIDE GAIT TRAINING FOR IMPROVED MOBILITY AND /OR TO NORMALIZE GAIT PATTERN] Future Scheduled Test NEUROMUSCU LAR RE-EDUCATION / BALANCE / POSTURAL CONTROL (PT) [code = NEUROMUSCULAR RE-EDUCATION / BALANCE / POSTURAL CONTROL (PT)] Future Scheduled Test THERAPEUTI C EXERCISES AND ESTABLISHING A HOME EXERCISE PROGRAM (PT/HVAC COMMERCIAL SALESPERSON) [code = THERAPEUTIC EXERCISES AND ESTABLISHING A HOME EXERCISE PROGRAM (PT/HVAC COMMERCIAL SALESPERSON)] Goal Patient Goal - TO WALK Goal [...] Attending [facility] Care Facility Care Department Encounter ID Discharge Date Discharge Status Discharge Condition Discharge Reason Percent Goals Met 2024-09-18 00:00:00 2024-11-16 00:00:00 Outpatient BETSY REID [facility] [id number]
--- OUTSIDE RECORDS SUMMARY | 2024-11-15 18:07 | XMS_ITS | Encounter Summary ---
Author Organization [facility] Address [address] [place] [address] Care Team Providers Care Slabbing Machine Operator Name Role Phone Unavailable Primary Care Provider Unavailabl e Encounter Details Date Type Department Care Team (Late st Contact Info) Description 10/03/2001 Outpatient Historical Division of Neurology [address] [address] (Excluded Provider) [place] [id number] [address] [facility] [address] [place] [address] Social History Tobacco Use Types Packs/Day Years Used Date Smoking Tobacco: Never Assessed Comments Unknown Sex and Gender Information Value Date Recorded Sex Assigned at Not on file 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
--- OUTSIDE RECORDS SUMMARY | 2024-11-15 18:07 | XMS_ITS | Clinical Summary ---
Author Organization [facility] [employer] Address [address] [place] [address] Care Team Providers Care Crew Member Name Role Phone Akin Coyne MD Primary Care Provider [phone] Adan Umana MD Unavailable [phone] Source Comments [facility] [employer],non-owned Affiliates and Associated Physician Practices is amultiple site organization consisting of ambulatory clinics and hospital sitesin [place], [place], [place] and [place]. This disclosure is being madepursuant to the Care Everywhere program and may not contain all information available regarding this patient. Last updated 18.[facility] [employer] Allergies Active Allergy Reactions Criticality Noted Date [...] every 12 hours 08/12/2023 Active HYDROcodone-acetam inophen (Oblong) 5-325 MG tablet Take 1 (one) tablet [...] age to complete this topic Care Teams Crew Member Relationship Specialty Start Date End Date Akin Coyne MD [address] [place] [id number] PCP - General Family Medicine 07/19/15 [place] [id number] [address] Physical Medicine and Rehabilitation 01/23/18
--- OUTSIDE RECORDS SUMMARY | 2024-11-15 18:07 | XMS_ITS | Continuity of Care Document ---
Author Organization [facility] Address [address] [place] [address] Phone Care Team Providers Care Temperature Logging Operator Name Role Phone Max Patrick Unavailable Unavailable Advance Directives Directive Yes / No Effective Date File Name No Information Encounters Encounter Description Practice Location Reason(s) For Visit Diagnoses Date Provider Providers Copied on Encounter [facility], [address], [place], [place], [id number], [place] tel:[phone] [address]iven HUSAIN Professional No Information [facility]gr[facility]0 [phone] Darnell Santana. [address], [place], [address], [place]. tel:[phone] Family History Family Member Type Diagnosis Age At Onset No Information Payers Payer name Insurance type Covered constitution party ID Authoriza tion(s) No Information Social History [...]
--- OUTSIDE RECORDS SUMMARY | 2024-11-15 18:07 | XMS_ITS | Clinical Summary ---
Author Organization Unknown Care Team Providers Care Cow Tender Name Role Phone IGGY BOOKER, ASHLEY Unavailable Unavailabl e JOSHUA PT, BETSY Unavailable Unavailable MARCELO OT, ABNER Unavailable Unavailable CHELA HYDRO PLANT OPERATOR, DENVER Unavailable Unavailabl e LUPCHO LINE MAINTAINER/TAMAYO, OSBALDO Unavailable Unavaila mariana RIGGS, KYLE Unavailable Unavailable Payers Payer Name Policy Type Policy Number Effective Date Expira tion Date MEDICARE.[facility] [id number] Problems Condition Name Condition Details Condition Category [...] CIGARETTES, UNCOMPLICATE D Active 09-16 00:00: 00 I&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 (CURRENT) USE OF ANTITHROMBOT ICS/ANTIPLAT ELETS Active 09-16 00:00: 00 PRSNL HX OF TIA (TIA), 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 09-16 00:00: 00 HISTORY OF FALLING Active 09-16 00:00: 00 JAIL (CURRENT) USE OF ORAL HYPOGLYCEMIC DRUGS Active [...] 0-11 00:00: 00 09-14 23:59 :00 No [id number] NEEDED FOR ANXIETY 1 tablet DAILY 1 tablet DAILY (route: oral) Med Classific ation: Central Nervous System Agents pantoprazol e 40 mg tablet,michael yed release 8-02 00:00: 00 09-14 23:59 :00 No [id number] STOMACH 1 tablet DAILY 1 tablet DAILY (route: oral) Med Classific ation: Gastroint estinal Therapy Agents azathioprin e 50 mg tablet 2020-09 0-07 00:00: 00 09-14 23:59 :00 No [id number] ORGAN REJECTION, PAIN 2 tablet DAILY 2 tablet DAILY (route: oral) Med Classific ation: Immunosup pressive Agents amlodipine 5 mg tablet 9-21 00:00: 00 09-14 23:59 :00 No [id number] HTN 1 tablet DAILY 1 tablet DAILY (route: oral) Med Classific ation: Cardiovas cular Therapy Agents trazodone 50 mg tablet 1-14 00:00: 00 09-14 23:59 :00 No [id number] DEPRESSION 2 tablet BEDTIME 2 tablet BEDTIME (route: oral) Med Classific ation: Central Nervous System Agents metoprolol succinate ER 100 mg tablet,exte nded release 24 hr 8-11 00:00: 00 09-14 23:59 :00 No [id number] HTN 1 tablet DAILY 1 tablet DAILY (route: oral) Med Classific ation: Cardiovas cular Therapy Agents gabapentin 300 mg capsule 9-04 00:00: 00 09-14 23:59 :00 No [id number] PAIN 1 capsule 3 TIMES DAILY 1 capsule 3 TIMES DAILY (route: oral) Med Classific ation: Central Nervous System Agents tizanidine 2 mg tablet 9-15 00:00: 00 09-14 23:59 :00 No [id number] MUSCLE SPASM 1 tablet BEDTIME 1 tablet BEDTIME (route: oral) Med Classific ation: Locomotor System gabapentin 300 mg capsule 2020-09 0-06 00:00: 00 07-18 00:00 :00 No [id number] Per instruc tions Per instructio ns (route: oral) Med Classific ation: Central Nervous System Agents lamotrigine 100 mg tablet 9-04 00:00: 00 09-14 23:59 :00 No [id number] SEIZURE 1 tablet 2 TIMES DAILY 1 tablet 2 TIMES DAILY (route: oral) Med Classific ation: Central Nervous System Agents duloxetine 60 mg capsule,del ayed release 9-04 00:00: 00 09-14 23:59 :00 No [id number] MOOD, DEPRESSION 2 capsule DAILY 2 capsule DAILY (route: oral) Med Classific ation: Central Nervous System Agents methylpredn isolone 4 mg tablets in a dose pack 2020-09 0-31 00:00: 00 07-18 00:00 :00 No [id number] Per instruc tions Per instructio ns (route: oral) Med Classific ation: Endocrine BD Tuberculin Syringe 1 mL 25 gauge x 5/8 9-09 00:00: 00 07-18 00:00 :00 No [id number] Per instruc tions Per instructio ns (route: miscellane ous) Med Classific ation: Medical Supplies and Durable Medical Equipment (DME) albuterol sulfate 1.25 mg/3 mL solution for nebulizatio n 2020-09 00:00: 00 09-29 23:59 :00 No [id number] NEEDED FOR SOB 3 mL DAILY 3 mL DAILY (route: inhalation ) Med Classific ation: Respirato ry Therapy Agents Aspirin Low Dose 81 mg tablet,michael yed release 2020-09 00:00: 00 09-14 23:59 :00 No [id number] BLOOD THINNER 1 tablet DAILY 1 tablet DAILY (route: oral) Med Classific ation: Hematolog ical Agents biotin 5,000 mcg disintegrat ing tablet 2020-09 00:00: 00 09-14 23:59 :00 No [id number] SUPPLEMENT 1 tablet DAILY 1 tablet DAILY (route: oral) Med Classific ation: Electroly te Balance-N utritiona l Products Centrum Silver 0.4 mg-300 mcg-250 mcg tablet 2020-09 00:00: 00 09-14 23:59 :00 No [id number] SUPPLEMENT 1 tablet DAILY 1 tablet DAILY (route: oral) Med Classific ation: Electroly te Balance-N utritiona l Products Cosentyx 150 mg/mL subcutaneou s syringe 2020-09 00:00: 00 09-14 23:59 :00 No [id number] ARTHRITIS 150 mg DIRECTED 150 mg DIRECTED (route: subcutaneo us) Med Classific ation: Dermatolo gical metformin 500 mg tablet 2020-09 00:00: 00 09-14 23:59 :00 No [id number] DIABETES MELLITUS 1 tablet DAILY 1 tablet DAILY (route: oral) Med Classific ation: Endocrine methylpredn isolone 4 mg tablets in a dose pack 2020-09 00:00: 07-22 23:59 :00 No [id number] ARTHRITIS Per instruc tions DIRECTED Per instructio ns DIRECTED (route: oral) Med Classific ation: Endocrine PreserVisio n AREDS-2 250 mg-90 mg-40 mg-1 mg capsule 2020-09 00:00: 00 09-14 23:59 :00 No [id number] SUPPLEMENT 1 capsule DAILY 1 capsule DAILY (route: oral) Med Classific ation: Alternati ve Therapy Tylenol Extra Strength 500 mg tablet 2020-09 00:00: 00 09-14 23:59 :00 No [id number] PAIN 2 tablet 3 TIMES DAILY 2 tablet 3 TIMES DAILY (route: oral) Med Classific ation: Analgesic , Anti-infl ammatory or Antipyret ic Vitamin D3 50 mcg (2,000 unit) capsule 2020-09 00:00: 00 09-14 23:59 :00 No [id number] SUPPLEMENT 1 capsule DAILY 1 capsule DAILY (route: oral) Med Classific ation: Electroly te Balance-N utritiona l Products Methylpred DP 4 mg tablets in a dose pack 2020-09 00:00: 00 09-29 23:59 :00 No [id number] TO REDUCE SYMPTOMS SUCH PAIN AND SWELLING 4 mg BEFORE MEALS 4 mg BEFORE MEALS (route: oral) Med Classific ation: Endocrine docusate sodium 100 mg capsule 09-22 00:00: 00 09-14 23:59 :00 No [id number] CONSTIPATIO N 1 capsule 2 TIMES DAILY 1 capsule 2 TIMES DAILY (route: oral) Med Classific ation: Gastroint estinal Therapy Agents Flonase Allergy Relief 50 mcg/actuati on nasal spray,suspe nsion 09-22 00:00: 00 09-14 23:59 :00 No [id number] NASAL CONGESTION, ALLERGIES 2 spray 2 TIMES DAILY 2 spray 2 TIMES DAILY (route: nasal) Med Classific ation: Respirato ry Therapy Agents prednisone 10 mg tablet 09-22 00:00: 00 10-04 23:59 :00 No [id number] STEROID 2 tablet DAILY 2 tablet DAILY (route: oral) Med Classific ation: Endocrine Vitamin C 500 mg tablet 09-22 00:00: 00 09-14 23:59 :00 No [id number] VITAMIN C 1 tablet DAILY 1 tablet DAILY (route: oral) Med Classific ation: Electroly te Balance-N utritiona l Products albuterol sulfate HFA 90 mcg/actuati on aerosol inhaler 09-22 00:00: 00 09-14 23:59 :00 No [id number] SHORTNESS OF BREATH. 2 puff EVERY 4 HOURS 2 puff EVERY 4 HOURS (route: inhalation ) Med Classific ation: Respirato ry Therapy Agents amlodipine 5 mg tablet 09-18 00:00: 00 Yes [id number] BLOOD PRESSURE 1 tablet DAILY 1 tablet DAILY (route: oral) Med Classific ation: Cardiovas cular Therapy Agents atorvastati n 40 mg tablet 09-18 00:00: 00 Yes [id number] CHOLESTEROL 1 tablet DAILY 1 tablet DAILY (route: oral) Med Classific ation: Cardiovas cular Therapy Agents clopidogrel 75 mg tablet 09-18 00:00: 00 Yes [id number] BLOOD THINNER 1 tablet DAILY 1 tablet DAILY (route: oral) Med Classific ation: Hematolog ical Agents Cosentyx 300 mg/2 Syringes (150 mg/mL) subcutaneou s 09-18 00:00: 00 Yes [id number] RHEUMATOID ARTHRITIS 2 mL EVERY OTHER WEEK 2 mL EVERY OTHER WEEK (route: subcutaneo ) Med Classific ation: Dermatolo gical Cymbalta 60 mg capsule,del ayed release 09-18 00:00: 00 Yes [id number] ANXIETY 2 capsule DAILY 2 capsule DAILY (route: oral) Med Classific ation: Central Nervous System Agents folic acid 1 mg tablet 09-18 00:00: 00 Yes [id number] SUPPLEMENT 1 tablet DAILY 1 tablet DAILY (route: oral) Med Classific ation: Electroly te Balance-N utritiona l Products gabapentin 300 mg capsule 09-18 00:00: 00 Yes [id number] SEIZURE 2 capsule 2 TIMES DAILY 2 capsule 2 TIMES DAILY (route: oral) Med Classific ation: Central Nervous System Agents hydralazine 10 mg tablet 09-18 00:00: 00 Yes [id number] BLOOD PRESSURE 1 tablet 2 TIMES DAILY 1 tablet 2 TIMES DAILY (route: oral) Med Classific ation: Cardiovas cular Therapy Agents hydrocodone 5 mg-acetamin ophen 325 mg tablet 09-18 00:00: 00 Yes [id number] NEEDED FOR PAIN 1 tablet EVERY 6 HOURS 1 tablet EVERY 6 HOURS (route: oral) Med Classific ation: Analgesic , Anti-infl ammatory or Antipyret ic hydroxyzine HCl 25 mg tablet 09-18 00:00: 00 Yes [id number] ALLERGIES 1 tablet DAILY 1 tablet DAILY (route: oral) Med Classific ation: Central Nervous System Agents I-James 300 mcg-200 mg-27 mg-2 mg tablet 09-18 00:00: 00 Yes [id number] SUPPLEMENT 2 tablet DAILY 2 tablet DAILY (route: oral) Med Classific ation: Electroly te Balance-N utritiona l Products isosorbide mononitrate ER 30 mg tablet,exte nded release 24 hr 09-18 00:00: 00 Yes [id number] BLOOD PRESSURE 0.5 tablet DAILY 0.5 tablet DAILY (route: oral) Med Classific ation: Cardiovas cular Therapy Agents Jardiance 10 mg tablet 09-18 00:00: 00 Yes [id number] DIABETES 1 tablet DAILY 1 tablet DAILY (route: oral) Med Classific ation: Endocrine lamotrigine 25 mg tablet 09-18 00:00: 00 Yes [id number] SEIZURE 3 tablet 2 TIMES DAILY 3 tablet 2 TIMES DAILY (route: oral) Med Classific ation: Central Nervous System Agents losartan 100 mg tablet 09-18 00:00: 00 Yes [id number] BLOOD PRESSURE 1 tablet DAILY 1 tablet DAILY (route: oral) Med Classific ation: Cardiovas cular Therapy Agents metoprolol succinate ER 50 mg tablet,exte nded release 24 hr 09-18 00:00: 00 Yes [id number] BLOOD PRESSURE 1 tablet DAILY 1 tablet DAILY (route: oral) Med Classific ation: Cardiovas cular Therapy Agents primidone 50 mg tablet 09-18 00:00: 00 Yes [id number] SEIZURE 1 tablet DAILY 1 tablet DAILY (route: oral) Med Classific ation: Central Nervous System Agents trazodone 100 mg tablet 09-18 00:00: 00 Yes [id number] MOOD 1 tablet BEDTIME 1 tablet BEDTIME [...] TO EVALUATE, OBSERVE / ASSESS, AND MONITOR, HYDRO PLANT OPERATOR TO OBSERVE AND MONITOR, PROVIDE SKILLED THERAPEUTIC INTERVENTION, ACTIVITY, EDUCATION, AND TRAINING TO ADDRESS; [code = AGENCY MAY PERFORM A RESUMPTION OF CARE VISIT FOLLOWING ANY HOSPITAL ADMISSION. PT TO EVALUATE, OBSERVE / ASSESS, AND MONITOR, HYDRO PLANT OPERATOR TO OBSERVE AND MONITOR, PROVIDE SKILLED THERAPEUTIC INTERVENTION, ACTIVITY, EDUCATION, AND TRAINING TO ADDRESS;] Future Scheduled Test PT / HYDRO PLANT OPERATOR T O EDUCATE ON HYPERTENSION SELF-MANAGEMENT [code = PT / HYDRO PLANT OPERATOR TO EDUCATE ON HYPERTENSION SELF-MANAGEMENT] Future Scheduled Test PT / HYDRO PLANT OPERATOR T O EDUCATE ON COPD SELF-MANAGEMENT [code = PT / HYDRO PLANT OPERATOR TO EDUCATE ON COPD SELF-MANAGEMENT] Future Scheduled Test PT / HYDRO PLANT OPERATOR T O EDUCATE ON DIABETES SELF- MANAGEMENT [code = PT / HYDRO PLANT OPERATOR TO EDUCATE ON DIABETES SELF- MANAGEMENT] Future Scheduled Test PT TO ASSE SS / HYDRO PLANT OPERATOR TO MONITOR FOR AND REPORT EARLY SIGNS OF ANTICOAGULANT TOXICITY TO THE PHYSICIAN AND/OR THE RN CLINICAL TIERCE FILLER FOR PHYSICIAN NOTIFICATION AND TO PROVIDE PATIENT/CAREGIVER EDUCATION ON ANTICOAGULANT THERAPY [code = PT TO ASSESS / HYDRO PLANT OPERATOR TO MONITOR FOR AND REPORT EARLY SIGNS OF ANTICOAGULANT TOXICITY TO THE PHYSICIAN AND/OR THE RN CLINICAL TIERCE FILLER FOR PHYSICIAN NOTIFICATION AND TO PROVIDE PATIENT/CAREGIVER EDUCATION ON ANTICOAGULANT THERAPY] Future Scheduled Test PT TO ASSE SS / HYDRO PLANT OPERATOR TO MONITOR CARDIO/RESPIRATORY SYSTEM; AND NOTIFY THE PHYSICIAN AND/OR THE RN CLINICAL TIERCE FILLER FOR PHYSICIAN NOTIFICATION FOR EARLY SIGNS AND SYMPTOMS OF EXACERBATION OR DETERIORATION. [code = PT TO ASSESS / HYDRO PLANT OPERATOR TO MONITOR CARDIO/RESPIRATORY SYSTEM; AND NOTIFY THE PHYSICIAN AND/OR THE RN CLINICAL TIERCE FILLER FOR PHYSICIAN NOTIFICATION FOR EARLY SIGNS AND SYMPTOMS OF EXACERBATION OR DETERIORATION.] Future Scheduled Test PT / HYDRO PLANT OPERATOR T O MONITOR AND EDUCATE ON OXYGEN SATURATION DURING ADLS/IADLS, NOTIFY PHYSICIAN AND/OR THE RN CLINICAL TIERCE FILLER FOR PHYSICIAN NOTIFICATION AND IF O2 SATS BELOW PHYSICIAN ORDERED PARAMETERS AFTER 10 MIN OF REST [code = PT / HYDRO PLANT OPERATOR TO MONITOR AND EDUCATE ON OXYGEN SATURATION DURING ADLS/IADLS, NOTIFY PHYSICIAN AND/OR THE RN CLINICAL TIERCE FILLER FOR PHYSICIAN NOTIFICATION AND IF O2 SATS BELOW PHYSICIAN ORDERED PARAMETERS AFTER 10 MIN OF REST] Future Scheduled Test PT / HYDRO PLANT OPERATOR T O MONITOR FOR HYPO/HYPERGLYCEMIA AND CONDUCT ROUTINE FOOT INSPECTIONS. RECORD PATIENT REPORTED BLOOD SUGAR LEVELS AND NOTIFY PHYSICIAN AND/OR THE RN CLINICAL TIERCE FILLER FOR PHYSICIAN NOTIFICATION IF BLOOD SUGAR LEVELS ARE OUTSIDE ORDERED PARAMETERS. TEACH PATIENT/CAREGIVER ON DAILY FOOT INSPECTIONS [code = PT / HYDRO PLANT OPERATOR TO MONITOR FOR HYPO/HYPERGLYCEMIA AND CONDUCT ROUTINE FOOT INSPECTIONS. RECORD PATIENT REPORTED BLOOD SUGAR LEVELS AND NOTIFY PHYSICIAN AND/OR THE RN CLINICAL TIERCE FILLER FOR PHYSICIAN NOTIFICATION IF BLOOD SUGAR LEVELS ARE OUTSIDE ORDERED PARAMETERS. TEACH PATIENT/CAREGIVER ON DAILY FOOT INSPECTIONS] Future Scheduled Test PT / HYDRO PLANT OPERATOR T O INSTRUCT PATIENT/CAREGIVER ON RISK FOR HOSPITALIZATION/EMERGENCY ROOM VISITS, TEACH SIGNS AND SYMPTOMS THAT PUT PATIENT AT RISK, WHEN TO NOTIFY NURSE/PHYSICIAN OF COMPLICATIONS/DECLINE, AND WHEN TO CALL 911. 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 MAY TEACH THE PATIENT FLOOR RECOVERY WHEN CLINICALLY APPROPRIATE [code = PT/HYDRO PLANT OPERATOR TO IDENTIFY FALL RISK FACTORS; EDUCATE THE PATIENT/CAREGIVER ON WAYS TO REDUCE FALL RISK FACTORS AND ESTABLISH HOME EXERCISE PROGRAM TO MINIMIZE FALL RISK. MAY TEACH THE PATIENT FLOOR RECOVERY WHEN CLINICALLY APPROPRIATE] Future Scheduled Test PT / HYDRO PLANT OPERATOR M AY EDUCATE ON PAIN MANAGEMENT CLINICALLY INDICATED, INCLUDING NON-PHARMACOLOGICAL PAIN REDUCTION TECHNIQUES. [code = PT / HYDRO PLANT OPERATOR MAY EDUCATE ON PAIN MANAGEMENT CLINICALLY INDICATED, INCLUDING NON-PHARMACOLOGICAL PAIN REDUCTION TECHNIQUES. ] Future Scheduled Test SIT TO/FRO M STAND TRANSFERS (PT/HYDRO PLANT OPERATOR) [code = SIT TO/FROM STAND TRANSFERS (PT/HYDRO PLANT OPERATOR)] Future Scheduled Test PT/HYDRO PLANT OPERATOR TO PROVIDE GAIT TRAINING FOR IMPROVED MOBILITY AND /OR TO NORMALIZE GAIT PATTERN [code = PT/HYDRO PLANT OPERATOR TO PROVIDE GAIT TRAINING FOR IMPROVED MOBILITY AND /OR TO NORMALIZE GAIT PATTERN] Future Scheduled Test NEUROMUSCU LAR RE-EDUCATION / BALANCE / POSTURAL CONTROL (PT) [code = NEUROMUSCULAR RE-EDUCATION / BALANCE / POSTURAL CONTROL (PT)] Future Scheduled Test THERAPEUTI C EXERCISES AND ESTABLISHING A HOME EXERCISE PROGRAM (PT/HYDRO PLANT OPERATOR) [code = THERAPEUTIC EXERCISES AND ESTABLISHING A HOME EXERCISE PROGRAM (PT/HYDRO PLANT OPERATOR)] Goal Patient Goal - TO WALK [...] Encounter Type Admission Type Attending [facility] Facility Care Department Encounter ID Discharge Date Discharge Status Discharge Condition Discharge Reason Percent Goals Met 2024-09-18 00:00:00 2024-11-16 00:00:00 Outpatient BETSY REID [facility] [id number]
--- OUTSIDE RECORDS SUMMARY | 2024-11-15 18:07 | XMS_ITS | Referral Summary ---
Author Organization [facility] Address [address] [place] [address] Care Team Providers Care Viscose Cellar Charge Hand Name Role Phone Akin Coyne MD Primary Care Provider [phone] Adan Umana MD Unavailable [phone] Source Comments [facility],non-owned Affiliates and Associated Physician Practices is amultiple site organization consisting of ambulatory clinics and hospital sitesin [place], [place], [place] and [place]. This disclosure is being madepursuant to the Care Everywhere program and may not contain all information available regarding this patient. Last updated 18.[facility] Allergies Active Allergy Reactions Criticality Noted Date [...] every 12 hours 08/12/2023 Active HYDROcodone-acetam inophen ([employer]) 5-325 MG tablet Take 1 (one) tablet [...] of Treatment Not on file Care Teams Viscose Cellar Charge Hand Relationship Specialty Start Date End Date Akin Coyne MD [address] [place] [id number] PCP - General Family Medicine 07/19/15 [place] [address] [place] [address] [place] [id number] Physical Medicine and Rehabilitation 01/23/18
--- OUTSIDE RECORDS SUMMARY | 2024-11-15 18:07 | XMS_ITS | Encounter Summary ---
Author Organization [employer] Address [address] [place] [address] Care Team Providers Care Nail Puller Name Role Phone Unavailable Primary Care Provider Unavailabl e Encounter Details Date Type Department Care Team (Latest Contact Info) Description 10/19/1998 Outpatient Historical HIS OBSERVATION BED Michael Harris MD [address] [place] [address] 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
--- OUTSIDE RECORDS SUMMARY | 2024-11-15 18:07 | XMS_ITS | Encounter Summary ---
Author Organization [employer] Address 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
--- OUTSIDE RECORDS SUMMARY | 2024-11-15 18:07 | XMS_ITS | Patient Health Summary ---
Author Organization [facility] Address [address] [place] [address] Care Team Providers Care Mutual Fund Analyst Name Role Phone Akin Coyne MD Primary Care Provider [phone] Adan Umana MD Unavailable [phone] Note from [facility],non-owned Affiliates and Associated Physician Practices is amultiple site organization consisting of ambulatory clinics and hospital sitesin [place] and [place]. This disclosure is being madepursuant to the Care Everywhere program and may not contain all information available regarding this patient. Last updated 18.[facility] Allergies * Cephalexin(Swelling) * Pseudoephedrine-Ibuprofen(Unknown) Medications [...] by mouth every 12 hours * HYDROcodone-acetaminophen ([place]) 5-325 MG tablet(Started 10/18/2023) Take 1 (one) [...] Not detected, Invalid 01/17/2020 1:49 PM CDT [facility]CRO[facility] Microbiology SPECIMEN FROM NASOPHARYNGEAL STRUCTURE / Unknown Collection / Unknown 01/16/2020 11:20 AM CDT 01/16/2020 8:06 PM CDT Narrative [facility]CRO[facility] - 01/17/2020 1:49 PM CDT This Real Time RT-PCR assay was developed and its performance characteristics determined by [facility]. This test has been [...] Dg Soares MD LAB - MICROBIOLOGY ORDERABLES [facility]CROBIOLOGY [address] [place] [address], [facility] [phone] * US ABDOMEN LIMITED (05/13/2018 9:15 AM [...] Sacroiliac Joint Injection Under Fluoroscopy Blanca Nam [id number] 01/27/2018 Allergies Allergen Reactions Keflex [Cephalexin] Swelling [...] denies complaints, DC to home. Procedure codes: 55590 Adan Umana MD Adan Umana MD DIAGNOSTIC IMAGING O RDERABLES * XR SACROILIAC JOINTS 3+ VW (07/19/2015 3:46 PM TESTER ELECTRONIC SCALE) Anatomical Region Laterality Modality Pelvis, Lower Extremity Radiogra [facility] 07/19/2015 3:52 PM TESTER ELECTRONIC SCALE Narrative 07/19/2015 4:28 PM TESTER ELECTRONIC SCALE 3 VIEWS SACROILIAC JOINTS AP PELVIS SINGLE [...] HANDS BILATERAL 2 VIEWS (07/19/2015 3:46 PM TESTER ELECTRONIC SCALE) Anatomical Region Laterality Modality Wrist / Hand, Upper Extremity Ra diographic Imaging 07/19/2015 3:52 PM TESTER ELECTRONIC SCALE Narrative 07/19/2015 4:28 PM TESTER ELECTRONIC SCALE 3 VIEWS SACROILIAC JOINTS AP PELVIS SINGLE [...] 1 OR 2 VW (07/19/2015 3:45 PM TESTER ELECTRONIC SCALE) Anatomical Region Laterality Modality Pelvis Radiographic Kourtney ging 07/19/2015 3:52 PM TESTER ELECTRONIC SCALE Narrative 07/19/2015 4:28 PM TESTER ELECTRONIC SCALE 3 VIEWS SACROILIAC JOINTS AP PELVIS SINGLE [...] PM Shahriar Cook MD DIAGNOSTIC IMAGING [facility] Care Teams Mutual Fund Analyst Relationship Specialty Start Date End Date Akin Coyne MD [address] [place] [id number] PCP - General Family Medicine 07/19/15 [place] [address] [address] Physical Medicine and Rehabilitation 01/23/18
--- OUTSIDE RECORDS SUMMARY | 2024-11-15 18:07 | XMS_ITS | Encounter Summary ---
Author Organization [employer] Address 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
--- OUTSIDE RECORDS SUMMARY | 2024-11-15 18:07 | XMS_ITS | Clinical Summary ---
Author Organization [facility] Address [address] [place] [address] Phone Care Team Providers Care Direct Support Staff Member Name Role Phone Gagan Coyne MD Primary Care Provider [phone] Allergies Active Allergy Reactions Criticality Noted Date [...] Behavioral Health Behavioral Health Yes Carmina Gao, TOE LINING CLOSER Note: I want to be happier, want to live more, don't want my depression to [place] [address] MEDICARE [facility] Care Teams Direct Support Staff Member Relationship Specialty Start Date End Date Gagan Coyne MD [address] [place] [address] PCP - General Family Medicine 01/16/20
--- OUTSIDE RECORDS SUMMARY | 2024-11-15 18:07 | XMS_ITS | Continuity of Care Document ---
Author Organization [employer] 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 [address] [place] [address], [address], [facility], . tel:[phone] [facility], [place], [place], [id number], tel:[phone] [place] Low back painPain in right hipMuscle weakness (generalized)Myalgia Ankylosing spondylitis of multiple sites in spine 8 Cherri Cain. [address] [place] [address], [address], [place], [facility], . tel:[phone] Referring Provider: Everardo Johns Suite [facility], [place], [place], [facility]. tel:[phone] [facility] [facility] [address], [place], [place], [id number], tel:[phone] [place] Low back painPain in right hipMuscle weakness (generalized)Myalgia Ankylosing spondylitis of multiple sites in spine 8 Cherri Cain. [address] [place] [address], [address], [place], [facility], . tel:[phone] Referring Provider: Everardo Johns [address], [place], [address]. tel:[phone] [address], [place], [place], [id number], tel:[phone] [place] No Information Sep-3 0-201 6 Espinosa-Mejia es Ant. [address] [place] [address], [address], [place], [place], [facility], . tel:[phone] Referring Provider: Shahriar Cook [address] [facility] [address], [place], [place], [facility]. tel:[phone] [address], [place], [place], [id number], tel:[phone] [place] No Information Sep-2 3-201 6 Espinosa-Mejia es Ant. [address] [place] [address], [address], [place], [facility], . tel:[phone] Referring Provider: Shahriar Cook [address] [facility] [address], [place], [facility]. tel:[phone] [address], [place], [place], [id number], [place] tel:[phone] [place] No Information Sep-2 1-201 6 Espinosa-Mejai es Ant. [address] [place] [address], [address], [place], [place], [facility], [place]. tel:[phone] Referring Provider: Everardo Johns [address]aljit Kenan [address], [place], [address]. tel:[phone] [address], [place], [place], [id number], [place] tel:[phone] [place] No Information Sep-1 2-201 6 Espinosa-Mejia es Ant. [address] [place] [address], [address], [place], [facility], . tel:[phone] Referring Provider: Meri Johns0 Me Kamaljit Kenan [address], [place], [address]. tel:[phone] [address], [place], [place], [id number], tel:[phone] [place] No Information May-0 6 Espinosa-Mejia es Ant. [address] [place] [address], [address], [place], [facility], . tel:[phone] Referring Provider: Shahriar Cook [address] [place] [address] [address], [place], [facility]. tel:[phone] [facility] [address], [place], [place], [id number], tel:[phone] [place] No Information Apr- 6 Espinosa-Mejia es Ant. [address] [place] [address], [address], [place], [facility], . tel:[phone] Referring Provider: Shahriar Cook [address] [place] [address] [address], [place], [facility]. tel:[phone] [facility] [address], [place], [place], [id number], tel:[phone] [place] No Information 6 Espinosa-Mejia es Ant. [address] [place] [address], [address], [place], [facility], [place]. tel:[phone] Referring Provider: Shahriar Cook [address] [place] [address] [address], [place], [facility]. tel:[phone] [facility] [address] [place] [address], [id number], tel:[phone] [place] No Information 6 Espinosa-Mejia es Ant. [address] [place] [address], [address], [place], [facility], . tel:[phone] Referring Provider: Shahriar Cook [address] [place] [address] [address], [place], [address]. tel:[phone] [facility] [address], [id number], [place] tel:[phone] [place] No Information 6 Espinosa-Mejia es Ant. [address] [facility], [address], [place], [place], [facility], [place]. tel:[phone] Referring Provider: Shahriar Cook, [facility] [address], [place], [address]. tel:[phone] [facility] [facility] [address], [place], [place], [id number], tel:[phone] [place] No Information 6 Espinosa-Mejia es Ant. [address] [facility], [address], [place], [place], [facility], [place]. tel:[phone] Referring Provider: Shahriar Cook, [facility] [address], [place], [address]. tel:[phone] [facility] [address] [facility] [address], [place], [place], [id number], [place] tel:[phone] [place] Muscle weakness (generalized)Other dorsalgiaStiffness of unspecified joint, not elsewhere classifiedAnkylosing spondylitis of unspecified sites in spine 6 Espinosa-Mejia es Ant. [address] [facility], [address], [place], [place], [facility], [place]. tel:[phone] Referring Provider: Shahriar Cook [facility] [address], [place], [address]. tel:[phone] [facility] [address], [place], [place], [id number], [place] tel:[phone] [place] No Information 6 Espinosa-Mejia es Ant. [address] [facility], [address], [place], [address], [place]. tel:[phone] Referring Provider: Shahriar Cook [facility] [address], [place], [address]. tel:[phone] [facility] [facility] [address], [place], [place], [id number], [place] tel:[phone] [place] No Information 6 Cherri Cain. [address] [facility], [address], [place], [facility], . tel:[phone] Referring Provider: Shahriar Cook [address] [place] [address] [address], [place], [facility]. tel:[phone], [id number], tel:[phone] [place] No Information 6 Cherri Cain. [address] [place] [address], [address], [place], [facility], . tel:[phone] Referring Provider: Shahriar Cook [address] [place] [address], [place], [facility]. tel:[phone], [id number], tel:[phone] [place] No Information 6 Adriel Siddiqi. [address] [facility], [address], [place], [facility], . tel:[phone] Referring Provider: Shahriar Cook [address] [place] [address] [address], [place], [facility]. tel:[phone], [id number], tel:[phone] [place] Stiffness of left shoulder, not elsewhere classifiedPain in left shoulderAdhesive capsulitis of left shoulder 6 Sary Amos. [address] [facility], [facility] [address], [place], [facility], . tel:[phone] Referring Provider: Shahriar Cook [address] [place] [address] [address], [place], [address]. tel:[phone] Family History Family Member Type Diagnosis Age At Onset No Information Payers Payer name Insurance type Covered alliance party ID Authoriza tiprecious(s) [place] [id number] [facility] [place] [facility] [id number] Social History Type Description Quantity Date Captured [...]
--- OUTSIDE RECORDS SUMMARY | 2024-11-15 18:07 | XMS_ITS | Encounter Summary ---
Author Organization [facility] Address [address] [place] [address] Care Team Providers Care Sample Book Maker Name Role Phone Unavailable Primary Care Provider Unavailabl e Encounter Details Date Type Department Care Team (Late st Contact Info) Description 10/31/2001 Outpatient Historical Division of Neurology [address] [address] (Excluded Provider) [place] [address] [facility] [address] [place] [address] Social History Tobacco Use Types Packs/Day Years Used Date Smoking Tobacco: Never Assessed Comments Unknown Sex and Gender Information Value Date Recorded Sex Assigned at Not on file Legal Sex Female 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
[2024-11-15 18:09] VITALS: BMI 30.2
[2024-11-15 18:42] VITALS: BP 160/61; PULSE 62; RESP 20; TEMP 36.8; O2SAT 95
--- NOTE | 2024-11-15 18:42 | ADMGEN ---
This patient, Blanca Nam, was admitted to 2nd Floor Room 203-2. Patient/family oriented to hospital policies and general routines including ID bracelet, bed and alarms, visiting hours, pain management, procedures, bathroom and other care routines, personal items, smoking policy, room service/diet, and visiting hours. Information on how to activate the Rapid Response Team has been discussed. Patient/Family are encouraged to report perceived risks to care and to ask questions if they do not understand what they are told or what they should do.
[2024-11-15 18:43] VITALS: O2SAT 90
[2024-11-15] MEDS: ACETAMINOPHEN 325 MG TABLET 650 MG PO (20:45)
[2024-11-15] MEDS: amLODIPine BESYLATE 5 MG TABLET PO (20:46)
[2024-11-15] MEDS: traZODone HCL 50 MG TABLET 100 MG PO (20:46)
[2024-11-15 21:03] LABS: Glucose Point of Care 103 mg/dl (65-105)
[2024-11-16] VITALS: BP 160/58; PULSE 63; RESP 16; TEMP 36.9; O2SAT 90
[2024-11-16] MEDS: HYDROcodone/acetaminophen (*CRX) 5-325 MG TABLET 1 TAB PO ×3 (03:53→17:21)
[2024-11-16 08:00] VITALS: BP 155/44; PULSE 69; RESP 18; TEMP 36.4; O2SAT 95
[2024-11-16 08:13] LABS: Glucose Point of Care 108 mg/dl (65-105)
[2024-11-16 08:25] LABS: Hematocrit 31.2 % (35.0-42.0); Hemoglobin 9.1 g/dL (11.7-13.8); Mean Corpuscular HGB Conc 29.2 g/dL (32-36); Mean Corpuscular Hemoglobin 23.4 pg (27.0-31.0); Mean Corpuscular Volume 80.2 fL (78.0-102.0); Mean Platelet Volume 9.4 fl (9.2-11.8); Platelet Count Result 272 K/mm3 (150-420); Red Blood Count 3.89 M/mm3 (4.20-5.40); White Blood Count 6.4 K/mm3 (4.8-10.8)
[2024-11-16 08:47] LABS: Alanine Aminotransferase 11 U/L (14-59); Albumin Level 2.5 g/dL (3.4-5.0); Alkaline Phosphatase 135 U/L (46-116); Anion Gap 6 mmol/L (4-12); Aspartate Amino Transferase < 10 U/L (15-37); Bilirubin,Total 0.3 mg/dL (0.00-1.00); Blood Urea Nitrogen 8 mg/dL (7-18); Carbon Dioxide 33 mmol/L (21-32); Chloride 106 mmol/L (98-108); Estimated CRCL calculation 56 ml/min; Estimated Glomerular Filt Rate > 60; Glucose 102 mg/dL (70-99); Osmolality Calculated 298 mOsm/kg (285-295); Potassium 3.8 mmol/L (3.5-5.1); Sodium 145 mmol/L (136-145); Total Protein 6.8 g/dL (6.4-8.2)
[2024-11-16] MEDS: hydrALAZINE HCL 25 MG TABLET PO ×2 (09:11→17:21)
[2024-11-16] MEDS: CLOPIDOGREL BISULFATE 75 MG TABLET PO (09:11)
[2024-11-16] MEDS: lamoTRIgine 25 MG TABLET 75 MG PO ×2 (09:11→17:21)
[2024-11-16] MEDS: OPTI-GEN TAB 2 TABLET PO (09:11)
[2024-11-16] MEDS: ISOSORBIDE MONONITRATE 15 MG TAB.ER.24H PO (09:11)
[2024-11-16 09:12] VITALS: PULSE 69
[2024-11-16] MEDS: PREGABALIN (*CRX) 50 MG CAPSULE PO ×3 (09:12→17:21)
[2024-11-16] MEDS: DOCUSATE SODIUM 100 MG CAPSULE PO ×2 (09:12→17:21)
[2024-11-16] MEDS: PANTOPRAZOLE 40 MG TABLET PO (09:12)
[2024-11-16] MEDS: METOPROLOL SUCCINATE EXT REL 50 MG TABCR PO (09:12)
[2024-11-16] MEDS: hydrOXYzine HCL 25 MG TABLET PO (09:12)
[2024-11-16] MEDS: DULoxetine HCL 30 MG CAPSULE.DR 120 MG PO (09:12)
[2024-11-16] MEDS: LOSARTAN POTASSIUM 50 MG TABLET 100 MG PO (09:12)
[2024-11-16] MEDS: FERROUS SULFATE 325 MG TABLET DR PO (09:12)
[2024-11-16] MEDS: traMADol HCL (*CRX) 50 MG TABLET PO (09:12)
[2024-11-16] MEDS: GABAPENTIN 300 MG CAPSULE 600 MG PO ×2 (09:12→17:21)
[2024-11-16] MEDS: FOLIC ACID 1 MG TABLET PO (09:12)
[2024-11-16] MEDS: ATORVASTATIN 40 MG TABLET PO (09:13)
[2024-11-16] MEDS: PRIMIDONE 50 MG TABLET PO (09:13)
--- NOTE | 2024-11-16 11:05 | P.HP_ITS ---
H&P: HPI History of Present Illness Date/Time: 11/16/24 11:05 Chief Complaint: Fall Narrative: Patient is a 78 y/o F who was admitted to [facility] bed following a hospitalization for ground level fall at home and anemia. patient reports a PMH of osteoporosis, seronegative rheumatoid arthritis, diabetes, KIANNA not on CPAP, hypertension, anxiety/depression, anemia, emphysema, seizures, GERD, psoriasis, B12 deficiency, and hyperlipidemia. patient was treated at [facility] initial hemoglobin 6.5 was given 2 units PRBCs and iron transfusions hemoglobin stable upon discharge no active GI bleed. patient had evaluation by PT / OT which recommended rehab services for generalized weakness patient was agreeable and discharged to [facility] she was started on ferrous sulfate for her anemia. Upon arrival hemoglobin stable at 9.1. patient denied any chest pain, shortness a breath, nausea vomiting dizziness only endorsed weakness plan is to return home with when stable. Review of Systems Review of Systems: All systems reviewed & are unremarkable except as noted in HPI and below PMFSH Past Medical History Medical History Insomnia Bipolar disorder CKD (chronic kidney disease) Dysphagia S/p esophageal dilation Asthma Neuropathy History of CVA (cerebrovascular accident) Ankylosing spondylitis of multiple sites in spine Seronegative rheumatoid arthritis of multiple sites patient of Dr. Shahriar Cook Gastro-esophageal reflux disease without esophagitis MDD (major depressive disorder) Anxiety Mixed hyperlipidemia Hemorrhoids Anemia Hallucinations Chronic pain Osteoporosis Type 2 diabetes mellitus Tobacco abuse Macular degeneration Obstructive sleep apnea History of basal cell carcinoma (BCC) Hypertension Shingles Fatty liver Bronchitis Anal fissure Peripheral neuropathy Seizures (1973) B12 deficiency Psoriasis Diverticulitis Surgical History Surgical History History of benign breast biopsy History of appendectomy History of cataract extraction with lens replacement History of tubal ligation History of dilatation and curettage History of section History of sinus surgery History of lumbar laminectomy Status post anal fissurectomy History of colonoscopy History of carpal tunnel release Family History Family History Mother Hypertension, Onset Age: 97 Father Family history of malignant neoplasm Family history of lung cancer, Onset Age: 94 Colon cancer Sibling Family history of blood dyscrasia Other Family history of arthritis Family history of seizure disorder No family history of cardiovascular disease No family history of diabetes mellitus No family history of hypertension Prediabetes Social History Social History Social History: Surrogate medical decision maker: Misha Nam, spouse. Code status: Long discussion about options and the patient wishes to be DNR Smoking packs per day: 1 Smoking cigarettes per day: 20.0 Years smoked: 60 Smoking pack-years: 60.00 Smoking status: Current every day smoker Tobacco type: cigarettes Second hand tobacco smoke exposure: Yes Additional smoking assessment comments: 1-1.5 ppd for 59 years Alcohol intake: current Drinks per week: 7 Alcohol use details: beer-occasionally Substance use: unknown Substance use type: does not use Do You Feel Safe in your Home?: Yes Lack of Transportation: No Lack of Food: Never True Current Housing: I Have Housing Concerned About Future Housing: No Difficulty Paying Gas/Electric Bills: No Difficulty Paying for Meds: No Currently Unemployed: No Education: Master's Degree or Higher Difficulty w/ Childcare or Family Care: No Living arrangements: with family Additional living arrangements comments: Lives with in [place]. Gender identity (if verbalized by the patient): Female Sexual Orientation (if Verbalized by the Patient): Straight or Heterosexual Spiritual care concerns: No Meds Home Medications and Allergies Home Medications ?Medication ?Instructions ?Recorded ?Confirmed ?Type lamotrigine 25 mg tablet 75 mg PO BID 10/10/23 11/15/24 History metoprolol succinate 50 mg 50 mg PO DAILY 10/10/23 11/15/24 History tablet,extended release 24 hr primidone 50 mg tablet 50 mg PO DAILY 10/10/23 11/15/24 History pantoprazole 40 mg tablet,delayed 40 mg PO DAILY 06/30/24 11/15/24 History release Atorvastatin [Lipitor] 40 mg PO DAILY #30 tab-caps 07/03/24 11/15/24 Rx acetaminophen 500 mg tablet 500 mg PO BID PRN pain #30 tabs 07/15/24 11/15/24 Rx docusate sodium 100 mg capsule 100 mg PO BID #60 caps 07/15/24 11/15/24 Rx folic acid 1 mg tablet 1 mg PO DAILY #30 tabs 07/15/24 11/15/24 Rx gabapentin 300 mg capsule 600 mg (2 x 300 mg) PO BID #270 07/15/24 11/15/24 Rx caps losartan 100 mg tablet 100 mg PO DAILY #90 tabs 07/16/24 11/15/24 Rx isosorbide mononitrate 30 mg 15 mg (1/2 x 30 mg) PO DAILY #30 07/20/24 11/15/24 Rx tablet,extended release 24 hr tabs secukinumab 150 mg/mL subcutaneous 300 mg subcut [id number] 07/30/24 11/15/24 History pen injector (Cosentyx Pen) tramadol 50 mg tablet 50 mg PO Q6H PRN pain #20 tabs 08/06/24 11/15/24 Rx clopidogrel 75 mg tablet 75 mg PO DAILY 08/12/24 11/15/24 History duloxetine 60 mg capsule,delayed 120 mg PO DAILY 08/12/24 11/15/24 History release hydroxyzine HCl 25 mg tablet 25 mg PO DAILY 08/12/24 11/15/24 History vit A 300 mcg-C 200 mg-E 27 2 tablet PO DAILY 08/12/24 11/15/24 History mg-lutein 2 mg and minerals tablet (Ocuvite with Lutein) trazodone 50 mg tablet 100 mg (2 x 50 mg) PO HS #180 tabs 09/17/24 11/15/24 Rx lorazepam 0.5 mg tablet 0.5 mg PO TID PRN anxiety #90 tabs 10/05/24 11/15/24 Rx hydrocodone 5 mg-acetaminophen 325 1 tablet PO QHS PRN pain #14 tabs 10/30/24 11/15/24 Rx mg tablet amlodipine 5 mg tablet (Norvasc) 5 mg PO HS 11/10/24 11/15/24 History hydralazine 25 mg tablet 25 mg PO Q12H 11/10/24 11/15/24 History pregabalin 50 mg capsule 50 mg PO Q8H 11/10/24 11/15/24 History atorvastatin 40 mg tablet 40 mg PO DAILY 11/15/24 11/15/24 History ferrous sulfate 325 mg (65 mg 325 mg PO DAILY #30 tabs 11/15/24 11/15/24 Rx iron) tablet,delayed release hydrocodone 5 mg-acetaminophen 325 1 tablet PO Q4H PRN Pain Rated 4-6 11/15/24 11/15/24 Rx mg tablet #10 tabs Allergies Allergy/AdvReac Type Severity Reaction Status Date / Time cephalexin Allergy Severe Anaphylaxis Verified 11/15/24 16:53 Vital Signs Vital Signs - 24 hr 11/15/24 18:42 11/15/24 18:43 11/16/24 00:00 Temperature 98.3 F 98.4 F Pulse Rate 62 63 Respiratory Rate 20 16 Blood Pressure 160/61 H 160/58 H Pulse Oximetry 95 90 90 Oxygen Delivery Room Air Room Air Room Air 11/16/24 08:00 11/16/24 09:12 Temperature 97.6 F Pulse Rate 69 69 Respiratory Rate 18 Blood Pressure 155/44 H Pulse Oximetry 95 Oxygen Delivery Room Air Exam Const: General: comfortable and no acute distress Other: , female, nontoxic appearance, elderly HENMT: Face/Nose/Sinus: Normal nares present Mouth: Yes moist mucous membranes Eyes: General: appearance normal, both eyes and all related structures Sclera: sclerae normal Pupils: Equal, round and reactive pupils present EOM: EOMs intact bilaterally Resp: Effort & Inspection: normal respiratory effort Auscultation: clear to auscultation bilaterally Cardio: Rate: regular rate Rhythm: regular rhythm Other: S1-S2 present without murmur, rub, ectopy GI: Other: Abdomen soft, nondistended, nontender. Normoactive bowel sounds in all quadra nts. Skin: General skin exam: normal color and no rashes or lesions noted Wounds: no wounds Neuro: Speech: normal speech Motor exam (neuro): 5/5 motor strength present throughout Sensory Exam: normal sensation Other: A&O x4 Extrem: General: normal to inspection Psych: Mental Status: mental status grossly normal Affect: normal affect Other: Good insight and judgment, pleasant H&P: Results Labs Labs: Short CBC 11/16/24 Range/Units 08:09 WBC 6.4 (4.8-10.8) K/mm3 Hgb 9.1 L (11.7-13.8) g/dL Hct 31.2 L (35.0-42.0) % Plt Count 272 (150-420) K/mm3 [facility] 11/16/24 08:09 Sodium 145 Potassium 3.8 Chloride 106 Carbon Dioxide 33 H BUN 8 Creatinine 0.63 Glucose 102 H Calcium 9.0 Liver Function 11/16/24 Range/Units 08:09 Total Bilirubin 0.3 (0.00-1.00) mg/dL AST < 10 L (15-37) U/L ALT 11 L (14-59) U/L Alkaline Phosphatase 135 H (46-116) U/L Albumin 2.5 L (3.4-5.0) g/dL Assessment and Plan Assessment and plan (1) Frequent falls: Code(s): R29.6 - Repeated falls Status: Acute Assessment and Plan: * fall precautions * PT/OT (2) Anemia: Qualifiers: Anemia type: unspecified type Qualified Code(s): D64.9 - Anemia, unspecified Code(s): D64.9 - Anemia, unspecified Status: Acute Assessment and Plan: * Hgb 9.1 POA * Resumed Ferrous Sulfate (3) Type 2 diabetes mellitus: Qualifiers: Diabetes mellitus chcf insulin use: without securities counselor use Diabetes mellitus complication status: without complication Qualified Code(s): E11.9 - Type 2 diabetes mellitus without complications Code(s): E11.9 - Type 2 diabetes mellitus without complications Status: Chronic Assessment and Plan: HX of ne medication new A1c 5..7 * BS mildly elevated * A1c 5.7 * hypoglycemia protocol * no current home medications (4) Hypertension: Qualifiers: Hypertension type: essential hypertension Qualified Code(s): I10 - Essential (primary) hypertension Code(s): I10 - Essential (primary) hypertension Status: Chronic Assessment and Plan: * continue home medications: Metoprolol, losartan, Imdur, hydralazine, amlodipine * monitor Plan Code status: Full code per patient DVT prophylaxis: NA Stress ulcer prophylaxis: Protonix 40 daily PT/OT notes: swing bed Disposition: patient continues admission to the medical unit for [place] swing bed for continued strength training and rehabilitation plan is for patient to return home with once medically stable. Quality VTE Prophylaxis VTE prophylaxis: mechanical ordered If No VTE Prophylaxis Answer both mechanical and pharmacologic: Reason no pharmacologic proph: medical contraindication -Patient's disposition for safe discharge discussed with porter sample case Dictation performed by [employer] direct speech recognition software, therefore acupressurist variants and typographical errors may occur. Hospitalist MIPS Advance Care Plan I have confirmed that the patient's Advanced Care Plan is present, code status is documented, or surrogate decision maker is listed in patient medical record.: Yes Medication Reconciliation I have utilized all available resources to obtain, update and review the patients current medications (includes all prescriptions, OTC, herbals, cannabis, and nutritional supplements).: Yes The patient is not eligible for med reconciliation; the patient is in a emergent medical situation where delaying treatment would jeopardize the patients health.: No
[2024-11-16 11:58] LABS: Glucose Point of Care 97 mg/dl (65-105)
[2024-11-16 16:00] VITALS: BP 126/48; PULSE 60; RESP 18; TEMP 36.2; O2SAT 97
[2024-11-16 16:40] LABS: Glucose Point of Care 84 mg/dl (65-105)
[2024-11-16 20:00] VITALS: PULSE 60; RESP 18; O2SAT 97
[2024-11-16] MEDS: traZODone HCL 50 MG TABLET 100 MG PO (20:46)
[2024-11-16] MEDS: amLODIPine BESYLATE 5 MG TABLET PO (20:46)
[2024-11-16 20:56] LABS: Glucose Point of Care 88 mg/dl (65-105)
[2024-11-17] VITALS (7 sets, daily range): BP systolic 125–145; BP diastolic 45–61; PULSE 61–82; RESP 16–17; TEMP 36.2–37.1; O2SAT 92–98
--- NOTE | 2024-11-17 06:30 | PC.NURSE ---
was called but no answer; Message left on voice mail. Daughter also notified but no answer so a message was left on her voice mail.
--- NOTE | 2024-11-17 06:37 | PC.NURSE ---
Patient was rounded on at 0100. At that time, patient appeared to be sleeping quietly in bed. At 0115, as this nurse was passing by the patient's door, the patient was found to be sitting on her bottom at the side of the bed nearest the foot. Patient was sitting very quietly, without any noticeable concern. Patient was asked what happened. She stated, I don't know. I guess I fell out of bed. I think I was reaching for something. I fall down a lot . Patient was asked if she hurt anywhere. Patient stated she did not. Patient was asked if she hit her head, or landed on anything. Patient stated she fell on her butt. Patient was given a head to toe assessment, and no additional injuries were noted. Patient had a previous skin tear on her elbow that was healing, and 1 side of that was reopened. A band-aid was placed. Patient was assisted back into bed using a sara lift and two R.N.'s. Patient's vitals were taken and were charted. Follow-up was done 1 hour and 4 hours later, with vital signs again take at the 4 hour libby. No signs of injuries were noted, and patient went back to sleep right after the fall. She was woken up with each follow-up, and again asked if she hurt anywhere. She stated that she did not.
--- NOTE | 2024-11-17 07:58 | PC.NURSE ---
Called Patient access informed room move to 207 r/t fall.
--- NOTE | 2024-11-17 09:36 | PC.NURSE ---
SOCIAL MEDIA COMMUNITY MANAGER made aware of Registered Dietitian Evaluation.
[2024-11-17] MEDS: ISOSORBIDE MONONITRATE 15 MG TAB.ER.24H PO (10:00)
[2024-11-17] MEDS: METOPROLOL SUCCINATE EXT REL 50 MG TABCR PO (10:00)
[2024-11-17] MEDS: OPTI-GEN TAB 2 TABLET PO (10:00)
[2024-11-17] MEDS: lamoTRIgine 25 MG TABLET 75 MG PO ×2 (10:00→17:42)
[2024-11-17] MEDS: hydrOXYzine HCL 25 MG TABLET PO (10:00)
[2024-11-17] MEDS: DULoxetine HCL 30 MG CAPSULE.DR 120 MG PO (10:01)
[2024-11-17] MEDS: hydrALAZINE HCL 25 MG TABLET PO ×2 (10:01→17:43)
[2024-11-17] MEDS: LOSARTAN POTASSIUM 50 MG TABLET 100 MG PO (10:01)
[2024-11-17] MEDS: GABAPENTIN 300 MG CAPSULE 600 MG PO ×2 (10:01→17:43)
[2024-11-17] MEDS: CLOPIDOGREL BISULFATE 75 MG TABLET PO (10:01)
[2024-11-17] MEDS: FERROUS SULFATE 325 MG TABLET DR PO (10:01)
[2024-11-17] MEDS: PRIMIDONE 50 MG TABLET PO (10:01)
[2024-11-17] MEDS: FOLIC ACID 1 MG TABLET PO (10:01)
[2024-11-17] MEDS: PANTOPRAZOLE 40 MG TABLET PO (10:01)
[2024-11-17] MEDS: PREGABALIN (*CRX) 50 MG CAPSULE PO ×3 (10:02→17:43)
[2024-11-17] MEDS: ATORVASTATIN 40 MG TABLET PO (10:02)
[2024-11-17] MEDS: DOCUSATE SODIUM 100 MG CAPSULE PO ×2 (10:02→17:43)
--- NOTE | 2024-11-17 11:03 | P.PNCROSS_ITS ---
Event Note Event Note Event Note: patient had fallen out of bed around 0 100 last night reports she must have b een reaching for something however upon assessment today patient denied any pain no loss of consciousness and reports she did not hit her head patient instructed to report if she develops any pain from where she fell will hold off on any imaging at this time.
[2024-11-17] MEDS: traZODone HCL 50 MG TABLET 100 MG PO (20:55)
[2024-11-17] MEDS: traMADol HCL (*CRX) 50 MG TABLET PO (20:55)
[2024-11-17] MEDS: amLODIPine BESYLATE 5 MG TABLET PO (20:56)
[2024-11-18] VITALS: BP 145/59; PULSE 69; RESP 16; TEMP 36.9; O2SAT 95
[2024-11-18 08:00] VITALS: BP 156/49; PULSE 60; RESP 18; TEMP 36.6; O2SAT 95
[2024-11-18 09:34] VITALS: PULSE 60
[2024-11-18] MEDS: METOPROLOL SUCCINATE EXT REL 50 MG TABCR PO (09:34)
[2024-11-18] MEDS: CLOPIDOGREL BISULFATE 75 MG TABLET PO (09:34)
[2024-11-18] MEDS: LOSARTAN POTASSIUM 50 MG TABLET 100 MG PO (09:35)
[2024-11-18] MEDS: FOLIC ACID 1 MG TABLET PO (09:35)
[2024-11-18] MEDS: hydrOXYzine HCL 25 MG TABLET PO (09:35)
[2024-11-18] MEDS: PANTOPRAZOLE 40 MG TABLET PO (09:35)
[2024-11-18] MEDS: PREGABALIN (*CRX) 50 MG CAPSULE PO ×3 (09:35→17:42)
[2024-11-18] MEDS: ATORVASTATIN 40 MG TABLET PO (09:35)
[2024-11-18] MEDS: DULoxetine HCL 30 MG CAPSULE.DR 120 MG PO (09:35)
[2024-11-18] MEDS: lamoTRIgine 25 MG TABLET 75 MG PO ×2 (09:35→17:42)
[2024-11-18] MEDS: PRIMIDONE 50 MG TABLET PO (09:35)
[2024-11-18] MEDS: ISOSORBIDE MONONITRATE 15 MG TAB.ER.24H PO (09:35)
[2024-11-18] MEDS: OPTI-GEN TAB 2 TABLET PO (09:36)
[2024-11-18] MEDS: GABAPENTIN 300 MG CAPSULE 600 MG PO ×2 (09:36→17:42)
[2024-11-18] MEDS: hydrALAZINE HCL 25 MG TABLET PO ×2 (09:36→17:42)
[2024-11-18] MEDS: FERROUS SULFATE 325 MG TABLET DR PO (09:36)
[2024-11-18] MEDS: DOCUSATE SODIUM 100 MG CAPSULE PO ×2 (09:36→17:42)
[2024-11-18] MEDS: HYDROcodone/acetaminophen (*CRX) 5-325 MG TABLET 1 TAB PO (13:25)
[2024-11-18 16:00] VITALS: BP 141/56; PULSE 68; RESP 17; TEMP 36.8; O2SAT 93
[2024-11-18] MEDS: amLODIPine BESYLATE 5 MG TABLET PO (21:04)
[2024-11-18] MEDS: traZODone HCL 50 MG TABLET 100 MG PO (21:04)
[2024-11-19] VITALS: BP 148/64; PULSE 72; RESP 18; TEMP 36.7; O2SAT 94
[2024-11-19 08:00] VITALS: BP 159/61; PULSE 67; RESP 18; TEMP 37.4; O2SAT 93
[2024-11-19] MEDS: ACETAMINOPHEN 325 MG TABLET 650 MG PO (08:37)
[2024-11-19] MEDS: LOSARTAN POTASSIUM 50 MG TABLET 100 MG PO (08:38)
[2024-11-19] MEDS: GABAPENTIN 300 MG CAPSULE 600 MG PO ×2 (08:38→16:59)
[2024-11-19] MEDS: PANTOPRAZOLE 40 MG TABLET PO (08:38)
[2024-11-19] MEDS: PRIMIDONE 50 MG TABLET PO (08:39)
[2024-11-19] MEDS: lamoTRIgine 25 MG TABLET 75 MG PO ×2 (08:39→17:00)
[2024-11-19] MEDS: CLOPIDOGREL BISULFATE 75 MG TABLET PO (08:40)
[2024-11-19] MEDS: DULoxetine HCL 30 MG CAPSULE.DR 120 MG PO (08:40)
[2024-11-19] MEDS: ISOSORBIDE MONONITRATE 15 MG TAB.ER.24H PO (08:40)
[2024-11-19] MEDS: OPTI-GEN TAB 2 TABLET PO (08:41)
[2024-11-19] MEDS: hydrALAZINE HCL 25 MG TABLET PO ×2 (08:41→17:00)
[2024-11-19] MEDS: DOCUSATE SODIUM 100 MG CAPSULE PO ×2 (08:41→17:00)
[2024-11-19 08:42] VITALS: PULSE 67
[2024-11-19] MEDS: hydrOXYzine HCL 25 MG TABLET PO (08:42)
[2024-11-19] MEDS: FERROUS SULFATE 325 MG TABLET DR PO (08:42)
[2024-11-19] MEDS: FOLIC ACID 1 MG TABLET PO (08:42)
[2024-11-19] MEDS: METOPROLOL SUCCINATE EXT REL 50 MG TABCR PO (08:42)
[2024-11-19] MEDS: ATORVASTATIN 40 MG TABLET PO (08:43)
[2024-11-19] MEDS: PREGABALIN (*CRX) 50 MG CAPSULE PO ×3 (09:11→17:01)
[2024-11-19] MEDS: [UNRECOGNIZED DRUG - OTHER] SUB-Q (10:55)
[2024-11-19] MEDS: SECUKINUMAB 150 MG/ML SUB-Q (10:55)
[2024-11-19 16:00] VITALS: BP 150/51; PULSE 62; RESP 16; TEMP 36.6; O2SAT 96
[2024-11-19 20:00] VITALS: PULSE 60; RESP 16; O2SAT 95
[2024-11-19] MEDS: traMADol HCL (*CRX) 50 MG TABLET PO (21:26)
[2024-11-19] MEDS: amLODIPine BESYLATE 5 MG TABLET PO (21:28)
[2024-11-19] MEDS: traZODone HCL 50 MG TABLET 100 MG PO (21:28)
[2024-11-20] VITALS: BP 152/64; PULSE 62; RESP 16; TEMP 36.8; O2SAT 94
[2024-11-20 08:00] VITALS: BP 153/57; PULSE 62; RESP 16; TEMP 36.7; O2SAT 94
[2024-11-20] MEDS: lamoTRIgine 25 MG TABLET 75 MG PO ×2 (08:48→17:04)
[2024-11-20] MEDS: LOSARTAN POTASSIUM 50 MG TABLET 100 MG PO (08:48)
[2024-11-20] MEDS: ACETAMINOPHEN 325 MG TABLET 650 MG PO (08:49)
[2024-11-20] MEDS: CLOPIDOGREL BISULFATE 75 MG TABLET PO (08:49)
[2024-11-20] MEDS: PREGABALIN (*CRX) 50 MG CAPSULE PO ×3 (08:50→17:03)
[2024-11-20] MEDS: GABAPENTIN 300 MG CAPSULE 600 MG PO ×2 (08:50→17:03)
[2024-11-20] MEDS: hydrOXYzine HCL 25 MG TABLET PO (08:50)
[2024-11-20] MEDS: DULoxetine HCL 30 MG CAPSULE.DR 120 MG PO (08:51)
[2024-11-20] MEDS: PANTOPRAZOLE 40 MG TABLET PO (08:51)
[2024-11-20] MEDS: PRIMIDONE 50 MG TABLET PO (08:51)
[2024-11-20] MEDS: ISOSORBIDE MONONITRATE 15 MG TAB.ER.24H PO (08:51)
[2024-11-20] MEDS: FOLIC ACID 1 MG TABLET PO (08:51)
[2024-11-20] MEDS: DOCUSATE SODIUM 100 MG CAPSULE PO ×2 (08:51→17:03)
[2024-11-20 08:52] VITALS: PULSE 62
[2024-11-20] MEDS: FERROUS SULFATE 325 MG TABLET DR PO (08:52)
[2024-11-20] MEDS: ATORVASTATIN 40 MG TABLET PO (08:52)
[2024-11-20] MEDS: METOPROLOL SUCCINATE EXT REL 50 MG TABCR PO (08:52)
[2024-11-20] MEDS: OPTI-GEN TAB 2 TABLET PO (08:52)
[2024-11-20] MEDS: hydrALAZINE HCL 25 MG TABLET PO ×2 (08:53→17:04)
[2024-11-20 11:34] LABS: Glucose Point of Care 121 mg/dl (65-105)
[2024-11-20 16:00] VITALS: BP 137/52; PULSE 67; RESP 18; TEMP 36.5; O2SAT 93
[2024-11-20] MEDS: amLODIPine BESYLATE 5 MG TABLET PO (20:22)
[2024-11-20] MEDS: traMADol HCL (*CRX) 50 MG TABLET PO (20:22)
[2024-11-20] MEDS: traZODone HCL 50 MG TABLET 100 MG PO (20:22)
[2024-11-21] VITALS: BP 143/56; PULSE 65; RESP 16; TEMP 36.5; O2SAT 93
[2024-11-21 08:00] VITALS: BP 128/42; PULSE 68; RESP 17; TEMP 36.6; O2SAT 94
[2024-11-21 09:58] VITALS: PULSE 68
[2024-11-21] MEDS: PRIMIDONE 50 MG TABLET PO (09:58)
[2024-11-21] MEDS: hydrOXYzine HCL 25 MG TABLET PO (09:58)
[2024-11-21] MEDS: lamoTRIgine 25 MG TABLET 75 MG PO ×2 (09:58→17:56)
[2024-11-21] MEDS: DOCUSATE SODIUM 100 MG CAPSULE PO ×2 (09:58→17:56)
[2024-11-21] MEDS: CLOPIDOGREL BISULFATE 75 MG TABLET PO (09:58)
[2024-11-21] MEDS: DULoxetine HCL 30 MG CAPSULE.DR 120 MG PO (09:58)
[2024-11-21] MEDS: FERROUS SULFATE 325 MG TABLET DR PO (09:58)
[2024-11-21] MEDS: OPTI-GEN TAB 2 TABLET PO (09:58)
[2024-11-21] MEDS: METOPROLOL SUCCINATE EXT REL 50 MG TABCR PO (09:58)
[2024-11-21] MEDS: GABAPENTIN 300 MG CAPSULE 600 MG PO ×2 (09:58→17:56)
[2024-11-21] MEDS: ATORVASTATIN 40 MG TABLET PO (09:58)
[2024-11-21] MEDS: PREGABALIN (*CRX) 50 MG CAPSULE PO ×3 (09:59→17:56)
[2024-11-21] MEDS: PANTOPRAZOLE 40 MG TABLET PO (09:59)
[2024-11-21] MEDS: hydrALAZINE HCL 25 MG TABLET PO ×2 (09:59→17:56)
[2024-11-21] MEDS: LOSARTAN POTASSIUM 50 MG TABLET 100 MG PO (09:59)
[2024-11-21] MEDS: FOLIC ACID 1 MG TABLET PO (09:59)
[2024-11-21] MEDS: ISOSORBIDE MONONITRATE 15 MG TAB.ER.24H PO (09:59)
[2024-11-21 16:00] VITALS: BP 146/57; PULSE 66; RESP 18; TEMP 36.6; O2SAT 94
[2024-11-21] MEDS: traMADol HCL (*CRX) 50 MG TABLET PO (20:14)
[2024-11-21] MEDS: traZODone HCL 50 MG TABLET 100 MG PO (20:14)
[2024-11-21] MEDS: amLODIPine BESYLATE 5 MG TABLET PO (20:15)
[2024-11-22] VITALS: BP 151/52; PULSE 66; RESP 18; TEMP 36.9; O2SAT 94
[2024-11-22 08:00] VITALS: BP 141/53; PULSE 64; RESP 17; TEMP 36.6; O2SAT 93
[2024-11-22] MEDS: lamoTRIgine 25 MG TABLET 75 MG PO ×2 (09:42→16:55)
[2024-11-22 09:43] VITALS: PULSE 64
[2024-11-22] MEDS: DULoxetine HCL 30 MG CAPSULE.DR 120 MG PO (09:43)
[2024-11-22] MEDS: hydrALAZINE HCL 25 MG TABLET PO ×2 (09:43→16:56)
[2024-11-22] MEDS: METOPROLOL SUCCINATE EXT REL 50 MG TABCR PO (09:43)
[2024-11-22] MEDS: hydrOXYzine HCL 25 MG TABLET PO (09:43)
[2024-11-22] MEDS: GABAPENTIN 300 MG CAPSULE 600 MG PO ×2 (09:43→16:56)
[2024-11-22] MEDS: ATORVASTATIN 40 MG TABLET PO (09:43)
[2024-11-22] MEDS: LOSARTAN POTASSIUM 50 MG TABLET 100 MG PO (09:43)
[2024-11-22] MEDS: DOCUSATE SODIUM 100 MG CAPSULE PO ×2 (09:44→16:56)
[2024-11-22] MEDS: FERROUS SULFATE 325 MG TABLET DR PO (09:44)
[2024-11-22] MEDS: CLOPIDOGREL BISULFATE 75 MG TABLET PO (09:44)
[2024-11-22] MEDS: OPTI-GEN TAB 2 TABLET PO (09:44)
[2024-11-22] MEDS: PANTOPRAZOLE 40 MG TABLET PO (09:44)
[2024-11-22] MEDS: PRIMIDONE 50 MG TABLET PO (09:44)
[2024-11-22] MEDS: PREGABALIN (*CRX) 50 MG CAPSULE PO ×3 (09:44→16:56)
[2024-11-22] MEDS: FOLIC ACID 1 MG TABLET PO (09:44)
[2024-11-22] MEDS: ISOSORBIDE MONONITRATE 15 MG TAB.ER.24H PO (09:44)
[2024-11-22 16:00] VITALS: BP 149/55; PULSE 62; RESP 17; TEMP 36.6; O2SAT 92
[2024-11-22] MEDS: amLODIPine BESYLATE 5 MG TABLET PO (21:15)
[2024-11-22] MEDS: traZODone HCL 50 MG TABLET 100 MG PO (21:15)
[2024-11-22 21:36] LABS: Add Urine Microscopic? YES; Bilirubin Urine Negative (Negative); Blood Urine Negative (Negative); Color Urine Yellow (Yellow); Glucose Urine UA Negative (Negative); Ketones Urine Negative (Negative); Leukocyte Esterase Ur 3+ LEU/UL (Negative); Nitrate Urine Negative (Negative); Protein Urine Negative (Negative); Urobilinogen Urine 0.2 mg/dL (0.2-1.0)
[2024-11-22 21:53] LABS: Appearance Urine Cloudy (Clear); Bacteria Urine 3+ /hpf; WBC Clumps Urine Present /hpf
[2024-11-23] VITALS: BP 156/51; PULSE 64; RESP 18; TEMP 36.8; O2SAT 95
--- NOTE | 2024-11-23 01:15 | PC.NURSE ---
New order received from Will Mayo [employer] P[employer] UP MAN for antibiotic for UTI x 5 days.
--- NOTE | 2024-11-23 07:29 | PM.EVENT ---
Event Note Event Note Event Note: Sent urine off for patient and she has foul smelling urine noted and I started her on Cipro for 5 days we will continue to monitor and await for cultures to come back.
[2024-11-23 07:59] VITALS: BP 149/49; PULSE 67; RESP 16; TEMP 36.7; O2SAT 93
[2024-11-23] MEDS: OPTI-GEN TAB 2 TABLET PO (08:48)
[2024-11-23] MEDS: ISOSORBIDE MONONITRATE 15 MG TAB.ER.24H PO (08:55)
[2024-11-23] MEDS: ATORVASTATIN 40 MG TABLET PO (08:55)
[2024-11-23] MEDS: traMADol HCL (*CRX) 50 MG TABLET PO (08:55)
[2024-11-23] MEDS: CIPROFLOXACIN 500 MG TAB PO ×2 (08:55→20:13)
[2024-11-23] MEDS: LOSARTAN POTASSIUM 50 MG TABLET 100 MG PO (08:55)
[2024-11-23 08:56] VITALS: PULSE 67
[2024-11-23] MEDS: lamoTRIgine 25 MG TABLET 75 MG PO ×2 (08:56→17:33)
[2024-11-23] MEDS: hydrOXYzine HCL 25 MG TABLET PO (08:56)
[2024-11-23] MEDS: PANTOPRAZOLE 40 MG TABLET PO (08:56)
[2024-11-23] MEDS: CLOPIDOGREL BISULFATE 75 MG TABLET PO (08:56)
[2024-11-23] MEDS: METOPROLOL SUCCINATE EXT REL 50 MG TABCR PO (08:56)
[2024-11-23] MEDS: DULoxetine HCL 30 MG CAPSULE.DR 120 MG PO (08:57)
[2024-11-23] MEDS: FOLIC ACID 1 MG TABLET PO (08:57)
[2024-11-23] MEDS: hydrALAZINE HCL 25 MG TABLET PO ×2 (08:57→17:33)
[2024-11-23] MEDS: GABAPENTIN 300 MG CAPSULE 600 MG PO ×2 (08:57→17:33)
[2024-11-23] MEDS: FERROUS SULFATE 325 MG TABLET DR PO (08:57)
[2024-11-23] MEDS: DOCUSATE SODIUM 100 MG CAPSULE PO ×2 (08:57→17:33)
[2024-11-23] MEDS: PRIMIDONE 50 MG TABLET PO (08:57)
[2024-11-23] MEDS: PREGABALIN (*CRX) 50 MG CAPSULE PO ×3 (08:57→17:33)
[2024-11-23] MEDS: HYDROcodone/acetaminophen (*CRX) 5-325 MG TABLET 1 TAB PO ×2 (12:46→20:14)
[2024-11-23 16:00] VITALS: BP 133/52; PULSE 60; RESP 16; TEMP 36.4; O2SAT 95
[2024-11-23 20:00] VITALS: PULSE 60; RESP 16; O2SAT 95
[2024-11-23] MEDS: traZODone HCL 50 MG TABLET 100 MG PO (20:14)
[2024-11-23] MEDS: amLODIPine BESYLATE 5 MG TABLET PO (20:14)
[2024-11-24] VITALS: BP 108/42; PULSE 60; RESP 16; TEMP 36.4; O2SAT 96
[2024-11-24 08:00] VITALS: BP 110/64; PULSE 80; RESP 20; TEMP 36.6; O2SAT 95
[2024-11-24 09:01] VITALS: PULSE 78
[2024-11-24] MEDS: DULoxetine HCL 30 MG CAPSULE.DR 120 MG PO (09:01)
[2024-11-24] MEDS: METOPROLOL SUCCINATE EXT REL 50 MG TABCR PO (09:01)
[2024-11-24] MEDS: CLOPIDOGREL BISULFATE 75 MG TABLET PO (09:01)
[2024-11-24] MEDS: OPTI-GEN TAB 2 TABLET PO (09:01)
[2024-11-24] MEDS: FERROUS SULFATE 325 MG TABLET DR PO (09:02)
[2024-11-24] MEDS: PANTOPRAZOLE 40 MG TABLET PO (09:02)
[2024-11-24] MEDS: LOSARTAN POTASSIUM 50 MG TABLET 100 MG PO (09:02)
[2024-11-24] MEDS: GABAPENTIN 300 MG CAPSULE 600 MG PO ×2 (09:02→17:21)
[2024-11-24] MEDS: lamoTRIgine 25 MG TABLET 75 MG PO ×2 (09:02→17:20)
[2024-11-24] MEDS: ISOSORBIDE MONONITRATE 15 MG TAB.ER.24H PO (09:02)
[2024-11-24] MEDS: PRIMIDONE 50 MG TABLET PO (09:03)
[2024-11-24] MEDS: CIPROFLOXACIN 500 MG TAB PO ×2 (09:03→20:38)
[2024-11-24] MEDS: hydrALAZINE HCL 25 MG TABLET PO ×2 (09:03→17:22)
[2024-11-24] MEDS: FOLIC ACID 1 MG TABLET PO (09:03)
[2024-11-24] MEDS: hydrOXYzine HCL 25 MG TABLET PO (09:03)
[2024-11-24] MEDS: ATORVASTATIN 40 MG TABLET PO (09:03)
[2024-11-24] MEDS: PREGABALIN (*CRX) 50 MG CAPSULE PO ×3 (09:03→17:21)
[2024-11-24] MEDS: DOCUSATE SODIUM 100 MG CAPSULE PO ×2 (09:04→17:21)
[2024-11-24] MEDS: HYDROcodone/acetaminophen (*CRX) 5-325 MG TABLET 1 TAB PO ×3 (09:07→20:38)
[2024-11-24] MEDS: traMADol HCL (*CRX) 50 MG TABLET PO (12:49)
[2024-11-24 16:00] VITALS: BP 137/53; PULSE 60; RESP 16; TEMP 36.5; O2SAT 94
[2024-11-24 20:00] VITALS: PULSE 60; RESP 16; O2SAT 94
[2024-11-24] MEDS: amLODIPine BESYLATE 5 MG TABLET PO (20:38)
[2024-11-24] MEDS: traZODone HCL 50 MG TABLET 100 MG PO (20:38)
[2024-11-25] VITALS: BP 121/51; PULSE 58; RESP 16; TEMP 36.5; O2SAT 95
[2024-11-25 08:00] VITALS: BP 148/52; PULSE 57; RESP 18; TEMP 36.7; O2SAT 96
[2024-11-25] MEDS: DULoxetine HCL 30 MG CAPSULE.DR 120 MG PO (09:22)
[2024-11-25] MEDS: GABAPENTIN 300 MG CAPSULE 600 MG PO (09:22)
[2024-11-25] MEDS: OPTI-GEN TAB 2 TABLET PO (09:22)
[2024-11-25] MEDS: hydrALAZINE HCL 25 MG TABLET PO (09:22)
[2024-11-25] MEDS: lamoTRIgine 25 MG TABLET 75 MG PO (09:22)
[2024-11-25] MEDS: ISOSORBIDE MONONITRATE 15 MG TAB.ER.24H PO (09:22)
[2024-11-25 09:23] VITALS: PULSE 58
[2024-11-25] MEDS: PRIMIDONE 50 MG TABLET PO (09:23)
[2024-11-25] MEDS: FERROUS SULFATE 325 MG TABLET DR PO (09:23)
[2024-11-25] MEDS: METOPROLOL SUCCINATE EXT REL 50 MG TABCR PO (09:23)
[2024-11-25] MEDS: PANTOPRAZOLE 40 MG TABLET PO (09:23)
[2024-11-25] MEDS: LOSARTAN POTASSIUM 50 MG TABLET 100 MG PO (09:23)
[2024-11-25] MEDS: FOLIC ACID 1 MG TABLET PO (09:23)
[2024-11-25] MEDS: hydrOXYzine HCL 25 MG TABLET PO (09:23)
[2024-11-25] MEDS: CLOPIDOGREL BISULFATE 75 MG TABLET PO (09:23)
[2024-11-25] MEDS: CIPROFLOXACIN 500 MG TAB PO (09:23)
[2024-11-25] MEDS: DOCUSATE SODIUM 100 MG CAPSULE PO (09:23)
[2024-11-25] MEDS: ATORVASTATIN 40 MG TABLET PO (09:24)
[2024-11-25] MEDS: PREGABALIN (*CRX) 50 MG CAPSULE PO ×2 (09:24→13:25)
[2024-11-25] MEDS: traMADol HCL (*CRX) 50 MG TABLET PO (09:24)
--- NOTE | 2024-11-25 12:43 | P.DS_ITS ---
DS: Admitting Diagnosis Discharge Date 11/25/2024 Admitting Diagnosis Rehab/Fall DS: Discharge Diagnosis Discharge Diagnosis (1) Frequent falls: Code(s): R29.6 - Repeated falls Status: Acute Assessment and Plan: * fall precautions * PT/OT (2) Anemia: Qualifiers: Anemia type: unspecified type Qualified Code(s): D64.9 - Anemia, unspecified Code(s): D64.9 - Anemia, unspecified Status: Acute Assessment and Plan: * Hgb 9.1 POA * Resumed Ferrous Sulfate (3) Type 2 diabetes mellitus: Qualifiers: Diabetes mellitus complication status: without complication Diabetes mellitus prison insulin use: without terminal carman use Qualified Code(s): E11.9 - Type 2 diabetes mellitus without complications Code(s): E11.9 - Type 2 diabetes mellitus without complications Status: Chronic Assessment and Plan: HX of ne medication new A1c 5..7 * BS mildly elevated * A1c 5.7 * hypoglycemia protocol * no current home medications (4) Hypertension: Qualifiers: Hypertension type: essential hypertension Qualified Code(s): I10 - Essential (primary) hypertension Code(s): I10 - Essential (primary) hypertension Status: Chronic Assessment and Plan: * continue home medications: Metoprolol, losartan, Imdur, hydralazine, amlodipine * monitor Plan Disposition: Discharged to SNF DS: Summary Hospital Course Reason for hospitalization: REHAB/FALL Hospital Course: Patient was a 78 y/o F who was admitted to [facility] bed following a hospitalization for ground level fall at home and anemia. patient reports a PMH of osteoporosis, seronegative rheumatoid arthritis, diabetes, KIANNA not on CPAP, hypertension, anxiety/depression, anemia, emphysema, seizures, GERD, psoriasis, B12 deficiency, and hyperlipidemia. patient was treated at [facility] initial hemoglobin 6.5 was given 2 units PRBCs and iron transfusions hemoglobin stable upon discharge no active GI bleed. patient had evaluation by PT / OT which recommended rehab services for generalized weakness patient was agreeable and discharged to [facility] she was started on ferrous sulfate for her anemia. Upon arrival hemoglobin stable at 9.1. patient denied any chest pain, shortness a breath, nausea vomiting dizziness only endorsed weakness Patient slowly progressed with physical and occupational therapy and it was determined patient would benefit from a longer Care Facility for further rehabilitation needs both patient and family agreed patient with no acute distress seen and assessed on the at discharge denied any further complaints. reviewed previous labs unremarkable patient was transported via EMS to alf. Status at Discharge Functional status at discharge: uses cane/walker Overall status at discharge: patient is not back to baseline Time Spent with Patient Time attestation: Total time spent providing and/or coordinating discharge services: Time spent: Greater than 30 minutes Exam Const: General: comfortable and no acute distress Other: , female, nontoxic appearance, elderly HENMT: Face/Nose/Sinus: Normal nares present Mouth: Yes moist mucous membranes Eyes: General: appearance normal, both eyes and all related structures Sclera: sclerae normal Pupils: Equal, round and reactive pupils present EOM: EOMs intact bilaterally Resp: Effort & Inspection: normal respiratory effort Auscultation: clear to auscultation bilaterally Cardio: Rate: regular rate Rhythm: regular rhythm Other: S1-S2 present without murmur, rub, ectopy GI: Other: Abdomen soft, nondistended, nontender. Normoactive bowel sounds in all quadrants. Skin: General skin exam: normal color and no rashes or lesions noted Wounds: no wounds Neuro: Cranial nerves: Yes Equal, round and reactive pupils present Speech: normal speech Motor exam (neuro): 5/5 motor strength present throughout Sensory Exam: normal sensation Other: A&O x4 Extrem: General: normal to inspection Psych: Mental Status: mental status grossly normal Affect: normal affect Other: Good insight and judgment, pleasant Discharge Plan Discharge Attending physician on discharge: Geo Menard Consulting providers: Della Samaniego; Ezio Mayo Discharging Clinician: Della Samaniego Anticipated Discharge Date/Time: 11/25/24 12:09 Patient Disposition: Home, Self-Care Activity: january shower Diet: regular Wound Care Instructions: follow printed instructions Discharge Instructions: Anemia: * continue with Iron supplement as directed Hypertension: * resume home medications as directed Patient Instructions: Antibiotic Form, Anemia (DC) Patient Language: Korean Stand Alone Forms: General Discharge Information Follow-up/Referrals: Enid Montalvo, [employer]INE [employer]PERATOR[employer] [Primary Care Provider] - (Follow up with Primary care provider within a week ) Discharge Medications: Continued Cosentyx Pen 150 mg/mL Pen Injector 300 mg SUBCUT [id number] Patient Comments: DOSE DUE 07/30 Rx Instructions: Saturday atorvastatin 40 mg tablet 40 mg PO DAILY tramadol 50 mg tablet 50 mg PO Q6H PRN (Reason: pain) Qty: 20 0RF pantoprazole 40 mg tablet,delayed release (DR/EC) 40 mg PO DAILY Atorvastatin [Lipitor] 40 mg PO DAILY Qty: 30 0RF isosorbide mononitrate 30 mg tablet extended release 24 hr 15 mg PO DAILY Qty: 30 0RF primidone 50 mg tablet 50 mg PO DAILY lamotrigine 25 mg tablet 75 mg PO BID metoprolol succinate 50 mg tablet extended release 24 hr 50 mg PO DAILY clopidogrel 75 mg tablet 75 mg PO DAILY hydroxyzine HCl 25 mg tablet 25 mg PO DAILY duloxetine 60 mg capsule,delayed release(DR/EC) 120 mg PO DAILY Ocuvite with Lutein 300 mcg-200 mg-27 mg-2 mg tablet 2 tablet PO DAILY pregabalin 50 mg capsule 50 mg PO Q8H hydralazine 25 mg tablet 25 mg PO Q12H amlodipine [Norvasc] 5 mg tablet 5 mg PO HS ferrous sulfate 325 mg (65 mg iron) Tablet,Delayed Release (Dr/Ec) 325 mg PO DAILY Qty: 30 0RF losartan 100 mg tablet 100 mg PO DAILY Qty: 90 3RF trazodone 50 mg tablet 100 mg PO HS Qty: 180 1RF docusate sodium 100 mg Capsule 100 mg PO BID Qty: 60 0RF folic acid 1 mg Tablet 1 mg PO DAILY Qty: 30 0RF acetaminophen 500 mg Tablet 500 mg PO BID PRN (Reason: pain) Qty: 30 0RF gabapentin 300 mg capsule 600 mg PO BID Qty: 270 1RF Changed hydrocodone-acetaminophen 5-325 mg Tablet 1 tablet PO Q6-8H PRN (Reason: Pain Rated 4-6) Qty: 10 0RF Discontinued lorazepam 0.5 mg tablet 0.5 mg PO TID PRN (Reason: anxiety) Qty: 90 0RF hydrocodone-acetaminophen 5-325 mg tablet 1 tablet PO QHS PRN (Reason: pain) Qty: 14 0RF Date of admission: 11/15/24 17:59 Primary Care Provider: Enid Montalvo Admitting Provider: Geo Menard Attending physician on admission: Linda Padilla Condition: Stable Quality VTE Prophylaxis VTE prophylaxis: mechanical ordered -Patient's previous records reviewed on admission -ER notes reviewed in detail on admission -discussed all findings and current treatment plan with patient/Family/POA -Consultations reviewed for recommendations -Patient's disposition for safe discharge discussed with director of casework department Dictation performed by [employer] direct speech recognition software, therefore co pilot variants and typographical errors may occur. Hospitalist MIPS Heart Failure (Exclusion) Patient has history of Heart Transplant or Left Ventricular Assistive Device?: No IF YES, STOP HERE Heart Failure (Qualifier) Patient has current or prior documentation of LVEF less than or equal to 40%, or mod/servere depressed LVSF?: No IF NO, STOP HERE
--- NOTE | 2024-11-25 13:06 | PC.NURSE ---
Discharge orders sent to [facility] in [place].
[2024-11-25] MEDS: HYDROcodone/acetaminophen (*CRX) 5-325 MG TABLET 1 TAB PO (13:25)
[2024-11-25 13:36] VITALS: BMI 10.0
--- NOTE | 2024-11-25 14:04 | PC.NURSE ---
Report called to Lili at [facility]. [facility] here for transport. Patient assisted to stretcher. Patient off floor at 1350.
--- NOTE | 2024-11-26 11:16 | PC.NURSE ---
Patient discharged to [facility] with no questions from staff regarding dc instructions
== END 2024-11-25 13:50 | disposition home or self-care (01) | DRG 948 ==
PROVIDERS: Nurse Practitioner Family; Admitting Provider Internal Medicine; PCP Nurse Practitioner Family; Visit Provider Nurse Practitioner Acute Care
DX: R53.1 Weakness (principal); I12.9 Hypertensive chronic kidney disease with stage 1 through stage 4 chronic kidney disease, or unspecified chronic kidney disease; N18.9 Chronic kidney disease, unspecified; D64.9 Anemia, unspecified; J43.9 Emphysema, unspecified; E11.22 Type 2 diabetes mellitus with diabetic chronic kidney disease; E11.40 Type 2 diabetes mellitus with diabetic neuropathy, unspecified; E78.5 Hyperlipidemia, unspecified; E53.8 Deficiency of other specified B group vitamins; K76.0 Fatty (change of) liver, not elsewhere classified; K21.9 Gastro-esophageal reflux disease without esophagitis; L40.9 Psoriasis, unspecified; M81.0 Age-related osteoporosis without current pathological fracture; M06.00 Rheumatoid arthritis without rheumatoid factor, unspecified site; M45.0 Ankylosing spondylitis of multiple sites in spine; G89.29 Other chronic pain; G47.33 Obstructive sleep apnea (adult) (pediatric); R29.6 Repeated falls; R56.9 Unspecified convulsions; F17.210 Nicotine dependence, cigarettes, uncomplicated; H35.30 Unspecified macular degeneration; F41.9 Anxiety disorder, unspecified; F32.A Depression, unspecified; Z79.02 Long term (current) use of antithrombotics/antiplatelets; Z86.73 Personal history of transient ischemic attack (TIA), and cerebral infarction without residual deficits
CPT/HCPCS: 36415; 80053; 81001; 82948; 85027; 87086; 87088; 97110; 97112; 97161; 97165; 97530; 97535; A9270